=== PATIENT | female | born 1990 | race Two or more races ===

== ENCOUNTER 2020-09-09 20:14 | Emergency (ER) | payer OTHER, SELFPAY ==
[2020-09-09 20:24] VITALS: BP 111/71; PULSE 68; RESP 16; TEMP 36.9; O2SAT 99
--- NOTE | 2020-09-09 21:19 | PC.NURSE ---
PT RESTING IN STRETCHER AWAITING MD'S EVAL. PT IN NAD, RESPIRATION N/L. SKIN W/D.
--- NOTE | 2020-09-09 21:43 | ED.HA ---
HPI - Headache General Chief Complaint: Headache Stated Complaint: Migraine Time Seen by Provider: 09/09/20 21:40 History of Present Illness HPI Narrative: Patient is a 29-year-old female with a history of migraine headaches. Presented today with having headaches for better part of last week. Getting worse in the last day. Patient try Imitrex without any help. No fever no chills. No focal weakness. No change in vision. Patient from home. Headache is the same as previous is diffuse over the entire head. There was positive photophobia. Worse with loud noise. Patient from home. Positive nausea associated with this headache. Related Data Previous Rx's Medication Instructions Recorded ibuprofen 400 mg PO Q6H PRN #20 tab 09/09/20 ondansetron 4 mg PO TID PRN 5 Days #10 tab 09/09/20 Allergies Allergy/AdvReac Type Severity Reaction Status Date / Time metoclopramide [From REGLAN] Allergy Mild ANXIETY Unverified 07/20/20 16:20 Penicillins [PENICILLINS] Allergy Unknown RASH Unverified 07/20/20 16:20 Review of Systems Review of Systems: Constitutional: No Weight loss, No Fever, No Chills, No Night Sweats, No Fatigue, No Malaise ENT/Mouth: No Hearing loss, No Ear Pain, No Nasal Congestion, No Sinus Pain, No Hoarseness, No sore throat, No Rhinorrhea, No Swallowing Difficulty Eyes: No Eye Pain, No Swelling, No Redness, No Foreign Body, No Discharge, No Vision Changes Cardiovascular: No Chest Pain, No SOB, No Dyspnea on Exertion, No Orthopnea, No Edema, No Palpitations Respiratory: No Cough, No Sputum, No Wheezing, No Smoke Exposure, No Dyspnea Gastrointestinal: Positive Nausea, No Vomiting, No Diarrhea, No Constipation, No abdominal Pain, No Hematochezia, No Melena Genitourinary: no irregular bleeding, No Dysuria, No Urinary Frequency, No Hematuria, No Urinary Incontinence, No Urgency, No Flank Pain, No Urinary Flow Changes, No Hesitancy Musculoskeletal: No joint pain, No Myalgias, No Joint Swelling Skin: No Skin Lesions, No rash Neuro: No Weakness, No Numbness, No Paresthesias, No Loss of Consciousness, No Dizziness, positive Psych: No Anxiety/Panic, No Depression, No SI/HI/AH/VH, No Social Issues, Heme/Lymph: No Bruising, No Bleeding,No Lymphadenopathy Endocrine: No Polyuria, No Polydipsia, No Temperature Intolerance [facility] Past Medical History Attestation statement: The following information was validated with the patient. Social History Social History Advance Directives: No Advance Directives Information Provided: Yes Physical Exam Vital Signs: Vital Signs: Last Vital Signs Temp 98.7 F 09/09/20 21:59 Pulse 95 09/09/20 21:59 Resp 16 09/09/20 21:59 BP 124/78 09/09/20 21:59 Pulse Ox 99 09/09/20 21:59 Body Mass Index 0.1 Appearance: Alert. Oriented X3. No acute distress. Eyes: Pupils equal, round and reactive to light. ENT: Pharynx normal. Neck: Normal inspection. Neck supple. No lymph nodes noted. No crepitus CVS: Normal heart rate and rhythm. Pulses normal. Normal S1 and S2 Respiratory: No respiratory distress. Breath sounds normal. No Wheezing. No rales Abdomen: Soft and nontender. No rigidity. No distention. good BS x4 Skin: Skin warm and dry. Normal skin color. Normal skin turgor. Extremities: No lower extremity edema. Neurovascular intact to all extremities. No Lacerations. No Rash Neuro: Oriented X 3. No motor deficit. No sensory deficit. Moving all extermities. No slurred speech MDM - Headache MDM Narrative Medical decision making narrative: Well-appearing no acute distress. Patient symptom improved with cocktail. Wants to go home. Will discharge patient home. Neurologically intact. Headache similar to previous bouts of migraine. Consistent with diagnosis of migraine. Patient to be discharged. No fever no chills no evidence for meningitis. Differential Diagnosis Differential diagnosis: Likely migraine, tension headache, subarachnoid hemorrhage, headache, meningitis and sinusitis Discharge Plan Discharge Clinical Impression: Migraine Patient Disposition: Home, Self-Care Instructions: Migraine Headache (ED) Prescriptions: New ibuprofen 400 mg tablet 400 mg PO Q6H PRN (Reason: pain) Qty: 20 RF: 0 ondansetron 4 mg tablet,disintegrating 4 mg PO TID PRN (Reason: nausea and vomiting) 5 Days Qty: 10 RF: 0 Referrals: Ho Araya MD [Primary Care Provider] - 2 days
[2020-09-09] MEDS: Ketorolac Tromethamine 30 MG/ML VIAL IVPUSH (21:56)
[2020-09-09] MEDS: Prochlorperazine Edisylate 10 MG/2 ML VIAL IVPUSH (21:56)
[2020-09-09] MEDS: 0.9 % Sodium Chloride 1,000 ML 999 ML IVCONT (21:56)
[2020-09-09] MEDS: diphenhydrAMINE HCL 50 MG/ML VIAL 25 MG IVPUSH (21:56)
[2020-09-09 21:59] VITALS: BP 124/78; PULSE 95; RESP 16; TEMP 37.1; O2SAT 99
--- NOTE | 2020-09-09 22:29 | PC.NURSE ---
PT JOSI HOWELL, TOLD RN THAT MY RIDE IS HERE, I NEED TO LEAVE. MESSAGE RELAYED TO MD KAT.
== END 2020-09-09 22:48 | disposition home or self-care (01) ==
PROVIDERS: Emergency Provider Emergency Medicine Emergency Medical Services; PCP Internal Medicine
DX: G43.909 Migraine, unspecified, not intractable, without status migrainosus (principal); Z79.899 Other long term (current) drug therapy
CPT/HCPCS: 96361; 96374; 96375; 99284; J1200; J1885

== ENCOUNTER 2021-12-10 18:16 | Emergency (ER) | payer OTHER, SELFPAY ==
[2021-12-10 18:38] VITALS: BP 113/64; PULSE 88; RESP 18; TEMP 36.8; O2SAT 97; BMI 21.3
== END 2021-12-10 21:23 | disposition left against medical advice (07) ==
PROVIDERS: Emergency Provider Emergency Medicine
DX: R51.9 Headache, unspecified (principal)
CPT/HCPCS: 99281; 99282

== ENCOUNTER 2021-12-11 09:25 | Emergency (ER) | payer OTHER, SELFPAY ==
[2021-12-11 09:33] VITALS: BP 114/65; PULSE 90; RESP 16; TEMP 36.8; O2SAT 100; BMI 21.3
--- NOTE | 2021-12-11 09:53 | ED.HA ---
HPI - Headache General Chief Complaint: Headache Stated Complaint: Migraine Time Seen by Provider: 12/11/21 09:40 Source: patient Mode of arrival: ambulatory Limitations: no limitations History of Present Illness HPI Narrative: 31-year-old female with a history of migraines on Lamictal, Nurtec, gets Botox injections followed by neurologist in [place] here with reports of generalized headache with photophobia, phonophobia, nausea and vomiting. Patient tells me that this feels similar to her previous migraines. When this happened she typically comes to the emergency department and get IV medications which helps her headache. Related Data Previous Rx's Medication Instructions Recorded ibuprofen 400 mg tablet 400 mg PO Q6H PRN #20 tab 09/09/20 ondansetron 4 mg disintegrating 4 mg PO TID PRN 5 Days #10 tab 09/09/20 tablet Allergies Allergy/AdvReac Type Severity Reaction Status Date / Time metoclopramide [From REGLAN] Allergy Mild ANXIETY Verified 12/10/21 18:38 Penicillins [PENICILLINS] Allergy Unknown RASH Verified 12/10/21 18:38 Review of Systems Review of Systems: Yes all other systems are reviewed and are negative Constitutional: Constitutional: Reports no additional constitutional complaints, Denies body ache(s), Denies chills, Denies fever(s), Reports headache(s) and Denies weakness Eyes: Eyes: Reports no additional eye complaints, Denies change in vision and Reports photophobia ENT: Reports system reviewed and no additional complaints, except as documented, Denies dizziness, Reports headache(s), Denies nasal congestion, Denies nasal discharge and Denies neck pain Cardiovascular: Cardiovascular: Reports no additional cardiovascular complaints, Denies chest pain, Denies leg edema and Denies dyspnea Respiratory: Respiratory: Reports no additional respiratory complaints, Denies cough and Denies dyspnea Gastrointestinal: Gastrointestinal: Reports no additional gastrointestinal complaints, Denies abdominal pain, Denies diarrhea, Reports nausea and Reports vomiting Genitourinary: Genitourinary: Reports no additional female genitourinary complaints and Denies urinary incontinence Musculoskeletal: Musculoskeletal: Reports no additional musculoskeletal complaints, Denies back pain, Denies arthralgias, Denies joint swelling, Denies neck pain, Denies numbness and Denies tingling Integumentary/Breasts: Skin/Breast: Reports system reviewed and no additional complaints, except as docu and Denies rash Neurologic: Reports system reviewed and no additional complaints, except as documented, Denies Abnormal speech present, Denies dizziness, Reports headache(s), Denies numbness, Denies tingling and Denies weakness PMFSH Past Medical History Attestation statement: The following information was validated with the patient. Source: old records reviewed and nursing notes reviewed Social History Social History Alcohol intake: never Patient Tobacco Use Status: Never used Tobacco Use of substances other than those prescribed or required for medical reasons: No Advance Directives: No Advance Directives Information Provided: No Patient : No Physical Exam Vital Signs: Vital Signs: Last Vital Signs Temp 98.2 F 12/11/21 12:08 Pulse 87 12/11/21 12:08 Resp 16 12/11/21 12:08 BP 107/65 12/11/21 12:08 Pulse Ox 99 12/11/21 12:08 BMI result Body Mass Index 21.3 Const: General: cooperative, healthy appearing, comfortable and no acute distress Orientation/consciousness: patient oriented x3 Limitations: no limitations HENMT: Head: Yes normal to inspection Ears: hearing grossly normal bilaterally and TM's normal bilaterally General nose exam: Normal external nose present Face and sinus: Yes normal facial exam Mouth: Normal oral and palatal mucosa present Throat: Yes posterior oropharynx normal, Yes tonsils normal and Yes uvula midline Eyes: General: appearance normal, both eyes and all related structures Pupils: Equal, round and reactive pupils present Direct Ophthalmoscopy: photophobia Neck: Neck: Yes normal visual inspection, Yes full ROM, Yes no lymphadenopathy and Yes no meningeal signs Chest: Chest palpation & inspection: normal inspection of the chest Resp: Effort & Inspection: normal respiratory effort Auscultation: clear to auscultation bilaterally Cardio: Rate: regular rate Rhythm: regular rhythm Peripheral pulses: Peripheral pulses 2+ throughout GI: Inspection: Yes normal to inspection Palpation (GI): Soft to palpation and nontender Auscultation: normal bowel sounds Back/Spine/Pelvis: Thoracic/Lumbar Spine: thoracic and lumbar spine normal to inspection Skin: General skin exam: no rashes or lesions noted Neuro: General: patient oriented x3, no meningeal signs, no focal motor deficits and normal sensation to monofilament Cranial nerves: Yes CN's II-XII intact bilaterally, Yes Equal, round and reactive pupils present, Yes Bilaterally intact EOM present, Yes Normal facial strength present and Yes Midline tongue present Cognition (Neuro): normal cognition Speech: No Abnormal speech present Gait exam (Neuro): Normal gait present Motor exam (neuro): 5/5 motor strength present throughout Sensory Exam: Normal double simultaneous stimulation for sensation Extrem: General: Yes normal to inspection Course Course Course Narrative: 31-year-old female who history of chronic migraines here with reports of migraine for the last 1 week unresolved with home medications. Patient states this feels similar to her previous migraines. It is typical for her to have associated photophobia, phonophobia and nausea and vomiting. Normal neurological exam. Vitals are stable. Patient tells me she can have regular and due to feeling restless when she gets it. She tells me that she is able to tolerate Compazine but only if given IV push. will give IV fluids, Decadron, Toradol, Compazine with Benadryl. patient also complaining of feeling anxious supple give low-dose Ativan 1215- patient tells me her headache is resolved. Will have patient follow up with her outpatient providers. reviewed worrisome signs and symptoms of when to return to the emergency department. Comfortable discharge home. MDM - Headache MDM Narrative Medical decision making narrative: Less likely subarachnoid hemorrhage with gradual onset, improving pain, normal exam less likely meningitis, encephalitis with no fever, no nuchal rigidity, improving exam Medical Records Attestation: I reviewed the patient's medical records. Lab Data Attestation: I reviewed the patient's lab results. Discharge Plan Discharge Clinical Impression: Migraine Patient Disposition: Home, Self-Care Instructions: Migraine Headache (ED) Additional Instructions: follow-up with your outpatient providers Prescriptions: No Action ibuprofen 400 mg tablet 400 mg PO Q6H PRN (Reason: pain) Qty: 20 0RF ondansetron 4 mg tablet,disintegrating 4 mg PO TID PRN (Reason: nausea and vomiting) 5 Days Qty: 10 0RF Referrals: Ho Araya MD [Primary Care Provider] - 2 days
[2021-12-11 09:55] VITALS: BP 109/63; PULSE 85; RESP 18; O2SAT 100
--- NOTE | 2021-12-11 09:57 | PC.NURSE ---
C/o severe headaches, worse x few days. states she has constant headache 6/10 at baseline.
--- NOTE | 2021-12-11 10:12 | PC.NURSE ---
no neuro deficits. nausea but no vomitingv.
[2021-12-11] MEDS: LORazepam 2 MG/ML VIAL 0.5 MG IVPUSH (10:13)
[2021-12-11] MEDS: 0.9 % Sodium Chloride 1,000 ML 999 ML IV (10:13)
[2021-12-11] MEDS: Ketorolac Tromethamine 30 MG/ML VIAL IVPUSH (10:14)
[2021-12-11] MEDS: diphenhydrAMINE HCL 50 MG/ML VIAL 25 MG IVPUSH (10:15)
[2021-12-11] MEDS: dexAMETHasone sod phosphate 10 MG/ML VIAL IVPUSH (10:18)
[2021-12-11] MEDS: Prochlorperazine Edisylate 10 MG/2 ML VIAL 5 MG IVPUSH (10:18)
[2021-12-11 12:08] VITALS: BP 107/65; PULSE 87; RESP 16; TEMP 36.8; O2SAT 99
== END 2021-12-11 12:26 | disposition home or self-care (01) ==
PROVIDERS: Emergency Provider Emergency Medicine; PCP Internal Medicine
DX: G43.909 Migraine, unspecified, not intractable, without status migrainosus (principal); Z79.899 Other long term (current) drug therapy
CPT/HCPCS: 96361; 96374; 96375; 99284; J1100; J1200; J1885; J2060

== ENCOUNTER 2022-07-07 17:24 | Emergency (ER) | payer OTHER, SELFPAY ==
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
[2022-07-07 18:35] VITALS: BP 138/90; PULSE 86; RESP 14; TEMP 36.3; O2SAT 100; BMI 22.6
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
[2022-07-07] MEDS: Ketorolac Tromethamine 60 MG/2 ML VIAL IM (21:46)
[2022-07-07] MEDS: traMADoL HCL 50 MG TABLET PO (22:54)
[2022-07-07] MEDS: LORazepam 1 MG TABLET PO (22:54)
[2022-07-07 22:55] VITALS: BP 117/70; PULSE 76; RESP 18; O2SAT 100
== END 2022-07-07 23:02 | disposition home or self-care (01) ==
PROVIDERS: Emergency Provider Internal Medicine; PCP Internal Medicine
DX: S16.1XXA Strain of muscle, fascia and tendon at neck level, initial encounter (principal); M54.2 Cervicalgia; V43.52XA Car driver injured in collision with other type car in traffic accident, initial encounter; Y93.9 Activity, unspecified; Y92.410 Unspecified street and highway as the place of occurrence of the external cause; Y99.9 Unspecified external cause status; Z79.899 Other long term (current) drug therapy
CPT/HCPCS: 72040; 96372; 99284; J1885

== ENCOUNTER → 2022-08-06 10:15 | Outpatient (BNVA) | payer OTHER, SELFPAY | PROVIDERS: PCP Internal Medicine; Visit Provider Student in an Organized Health Care Education/Training Program | DX: M79.7 Fibromyalgia (principal); M62.838 Other muscle spasm | CPT/HCPCS: 20552; 99212 ==

== ENCOUNTER → 2022-11-08 12:08 | Outpatient (BNVA) | payer OTHER, SELFPAY | PROVIDERS: PCP Internal Medicine; Visit Provider Student in an Organized Health Care Education/Training Program | DX: M79.7 Fibromyalgia (principal); M62.838 Other muscle spasm; G43.909 Migraine, unspecified, not intractable, without status migrainosus; F41.8 Other specified anxiety disorders | CPT/HCPCS: 99212 ==

== ENCOUNTER 2023-06-13 16:06 | Outpatient (AMB) | payer OTHER, SELFPAY ==
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
[2023-06-13 16:14] VITALS: BP 110/62; PULSE 85; TEMP 37.1; O2SAT 99; BMI 21.4
== END 2023-06-13 16:38 | disposition home or self-care (01) ==
PROVIDERS: PCP Internal Medicine; Visit Provider Student in an Organized Health Care Education/Training Program
DX: M62.838 Other muscle spasm (principal); M75.02 Adhesive capsulitis of left shoulder
CPT/HCPCS: 99213

== ENCOUNTER → 2023-06-13 16:06 | Outpatient (BNVA) | payer OTHER, SELFPAY | PROVIDERS: PCP Internal Medicine; Visit Provider Student in an Organized Health Care Education/Training Program | DX: M75.02 Adhesive capsulitis of left shoulder (principal); M62.838 Other muscle spasm; M79.7 Fibromyalgia; G43.709 Chronic migraine without aura, not intractable, without status migrainosus | CPT/HCPCS: 99212 ==

== ENCOUNTER 2024-01-08 10:38 | Outpatient (AMB) | payer OTHER, SELFPAY ==
[2024-01-08 10:41] VITALS: BP 132/80; PULSE 117; O2SAT 100; BMI 21.1
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
== END 2024-01-08 11:13 | disposition home or self-care (01) ==
PROVIDERS: PCP Internal Medicine; Visit Provider Student in an Organized Health Care Education/Training Program
DX: R52 Pain, unspecified (principal)
CPT/HCPCS: 99214

== ENCOUNTER 2024-01-08 10:39 | Outpatient (REF) | payer OTHER, SELFPAY ==
--- NOTE | ~2024-01-08 | XR_ITS ---
EXAM: XR LEFT FOOT XR RIGHT FOOT XR LEFT HAND XR RIGHT HAND INDICATION: Complex regional pain syndrome. COMPARISON: None. TECHNIQUE: 3 views of each foot. 4 views of each hand. FINDINGS: RIGHT HAND: Bone mineralization is normal. Small spur along the radial aspect of the body of the scaphoid. Mild degenerative changes in the first carpometacarpal joint with joint space narrowing and hypertrophic change. LEFT HAND: Minimal spurring along the radial aspect of the body of the scaphoid. Mild degenerative changes in the first carpometacarpal joint with joint space narrowing and hypertrophic change. No acute displaced fracture. Bone mineralization is normal. RIGHT FOOT: Bone mineralization is normal. Joint spaces and alignment are preserved. No acute displaced fracture. No significant plantar calcaneal spur. LEFT FOOT: Bone mineralization is normal. Joint spaces and alignment are preserved. No acute displaced fracture. No significant plantar calcaneal spur. XR/XR hand wrist LT IMPRESSION: 1. Mild degenerative changes bilateral first carpometacarpal joints. 2. No acute displaced fracture of the bilateral hands and feet. 3. Recommend follow up imaging in 10-14 days if fracture is suspected.
--- NOTE | ~2024-01-08 | XR_ITS ---
EXAM: XR LEFT FOOT XR RIGHT FOOT XR LEFT HAND XR RIGHT HAND INDICATION: Complex regional pain syndrome. COMPARISON: None. TECHNIQUE: 3 views of each foot. 4 views of each hand. FINDINGS: RIGHT HAND: Bone mineralization is normal. Small spur along the radial aspect of the body of the scaphoid. Mild degenerative changes in the first carpometacarpal joint with joint space narrowing and hypertrophic change. LEFT HAND: Minimal spurring along the radial aspect of the body of the scaphoid. Mild degenerative changes in the first carpometacarpal joint with joint space narrowing and hypertrophic change. No acute displaced fracture. Bone mineralization is normal. RIGHT FOOT: Bone mineralization is normal. Joint spaces and alignment are preserved. No acute displaced fracture. No significant plantar calcaneal spur. LEFT FOOT: Bone mineralization is normal. Joint spaces and alignment are preserved. No acute displaced fracture. No significant plantar calcaneal spur. XR/XR foot LT min 3V IMPRESSION: 1. Mild degenerative changes bilateral first carpometacarpal joints. 2. No acute displaced fracture of the bilateral hands and feet. 3. Recommend follow up imaging in 10-14 days if fracture is suspected.
--- NOTE | ~2024-01-08 | XR_ITS ---
EXAM: XR LEFT FOOT XR RIGHT FOOT XR LEFT HAND XR RIGHT HAND INDICATION: Complex regional pain syndrome. COMPARISON: None. TECHNIQUE: 3 views of each foot. 4 views of each hand. FINDINGS: RIGHT HAND: Bone mineralization is normal. Small spur along the radial aspect of the body of the scaphoid. Mild degenerative changes in the first carpometacarpal joint with joint space narrowing and hypertrophic change. LEFT HAND: Minimal spurring along the radial aspect of the body of the scaphoid. Mild degenerative changes in the first carpometacarpal joint with joint space narrowing and hypertrophic change. No acute displaced fracture. Bone mineralization is normal. RIGHT FOOT: Bone mineralization is normal. Joint spaces and alignment are preserved. No acute displaced fracture. No significant plantar calcaneal spur. LEFT FOOT: Bone mineralization is normal. Joint spaces and alignment are preserved. No acute displaced fracture. No significant plantar calcaneal spur. XR/XR foot RT min 3V IMPRESSION: 1. Mild degenerative changes bilateral first carpometacarpal joints. 2. No acute displaced fracture of the bilateral hands and feet. 3. Recommend follow up imaging in 10-14 days if fracture is suspected.
--- NOTE | ~2024-01-08 | XR_ITS ---
EXAM: XR LEFT FOOT XR RIGHT FOOT XR LEFT HAND XR RIGHT HAND INDICATION: Complex regional pain syndrome. COMPARISON: None. TECHNIQUE: 3 views of each foot. 4 views of each hand. FINDINGS: RIGHT HAND: Bone mineralization is normal. Small spur along the radial aspect of the body of the scaphoid. Mild degenerative changes in the first carpometacarpal joint with joint space narrowing and hypertrophic change. LEFT HAND: Minimal spurring along the radial aspect of the body of the scaphoid. Mild degenerative changes in the first carpometacarpal joint with joint space narrowing and hypertrophic change. No acute displaced fracture. Bone mineralization is normal. RIGHT FOOT: Bone mineralization is normal. Joint spaces and alignment are preserved. No acute displaced fracture. No significant plantar calcaneal spur. LEFT FOOT: Bone mineralization is normal. Joint spaces and alignment are preserved. No acute displaced fracture. No significant plantar calcaneal spur. XR/XR hand wrist RT IMPRESSION: 1. Mild degenerative changes bilateral first carpometacarpal joints. 2. No acute displaced fracture of the bilateral hands and feet. 3. Recommend follow up imaging in 10-14 days if fracture is suspected.
== END 2024-01-08 10:40 | disposition home or self-care (01) ==
LOC: HO.XRAY 10:39
PROVIDERS: PCP Internal Medicine; Visit Provider Student in an Organized Health Care Education/Training Program
DX: G90.59 Complex regional pain syndrome I of other specified site (principal); R52 Pain, unspecified
CPT/HCPCS: 73110; 73130; 73630; 99212

== ENCOUNTER → 2024-02-09 10:05 | Outpatient (REF) | payer OTHER, SELFPAY ==
--- NOTE | ~2024-02-09 | NM_ITS ---
EXAMINATION: THREE PHASE BONE SCAN CLINICAL INFORMATION: Complex regional pain syndrome I of unspecified upper limb Additional Notes/Special Instructions Any signs of CRPS Left upper and left lower extremity are particularly symptomatic . COMPARISON: No previous bone scan is available for comparison. Radiographs of the bilateral hands and feet dated 01/08/2024 and the cervical spine dated 07/07/2022 are available for comparison.. TECHNIQUE: Initial rapid sequence images were obtained over the chest including both shoulders and upper extremities in the anterior and posterior projections during the bolus injection of 25 mCi Tc-99m MDP. Static images of the whole body with multiple spot views of the lumbosacral spine and pelvis, chest and distal extremities were then obtained 2.5 hours post injection. FINDINGS: Initial rapid sequence images show bilaterally symmetrical flow to the proximal upper extremities and bilateral shoulders. Normal vascular flow through the chest is also noted. The flow to the visualized kidneys, including approximately the superior two thirds bilaterally appears normal and bilaterally symmetrical. Blood pool images of the chest and the upper and lower extremities are bilaterally symmetrical with no significant foci of increased blood pool activity present at any site except for minimally asymmetrical blood pool activity in the mid feet bilaterally, more prominent on the right. Delayed static images of the whole body show: In the head, no significant abnormalities are present. In the thoracic cage and upper extremities, no significant abnormalities are present. In the spine, no significant abnormalities are present. In the pelvis, no significant abnormalities are present. In the lower extremities, no significant abnormalities are present. No other definite bony abnormalities are noted. The urinary bladder and faint visualization of both kidneys are noted. NM/NM bone 3 phase IMPRESSION: No significant abnormalities are present at any site on the flow, blood pool, or delayed static images.
== END ==
LOC: HO.NUCMED 10:05
PROVIDERS: PCP Internal Medicine; Visit Provider Student in an Organized Health Care Education/Training Program
DX: G90.519 Complex regional pain syndrome I of unspecified upper limb (principal)
CPT/HCPCS: 78315; A9503

== ENCOUNTER 2024-03-16 14:00 | Outpatient (AMB) | payer OTHER, SELFPAY ==
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
[2024-03-16 14:08] VITALS: BP 122/74; PULSE 110; O2SAT 99; BMI 21.0
== END 2024-03-16 14:33 | disposition home or self-care (01) ==
PROVIDERS: PCP Internal Medicine; Visit Provider Student in an Organized Health Care Education/Training Program
DX: R52 Pain, unspecified (principal); G90.512 Complex regional pain syndrome I of left upper limb; M79.7 Fibromyalgia
CPT/HCPCS: 99213

== ENCOUNTER → 2024-03-16 14:00 | Outpatient (BNVA) | payer OTHER, SELFPAY | PROVIDERS: PCP Internal Medicine; Visit Provider Student in an Organized Health Care Education/Training Program | DX: G90.512 Complex regional pain syndrome I of left upper limb (principal); M79.7 Fibromyalgia; Z79.899 Other long term (current) drug therapy | CPT/HCPCS: 99212 ==

== ENCOUNTER 2024-09-14 11:44 | Outpatient (AMB) | payer OTHER, SELFPAY ==
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
[2024-09-14 11:54] VITALS: BP 90/60; PULSE 98; O2SAT 99; BMI 18.9
== END 2024-09-14 12:36 | disposition home or self-care (01) ==
PROVIDERS: PCP Internal Medicine; Visit Provider Student in an Organized Health Care Education/Training Program
DX: R52 Pain, unspecified (principal); G90.512 Complex regional pain syndrome I of left upper limb; M79.7 Fibromyalgia
CPT/HCPCS: 99214

== ENCOUNTER → 2024-09-14 11:44 | Outpatient (BNVA) | payer OTHER, SELFPAY | PROVIDERS: PCP Internal Medicine; Visit Provider Student in an Organized Health Care Education/Training Program | DX: M79.7 Fibromyalgia (principal); G90.512 Complex regional pain syndrome I of left upper limb; M54.50 Low back pain, unspecified; R20.0 Anesthesia of skin | CPT/HCPCS: 99212 ==

== ENCOUNTER 2024-11-30 08:03 | Outpatient (AMB) | payer OTHER, SELFPAY ==
[2024-11-30 08:10] VITALS: BP 112/60; PULSE 102; O2SAT 95; BMI 20.3
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
--- OUTSIDE RECORDS SUMMARY | 2024-11-30 08:10 | XMS_ITS | Encounter Summary ---
Author Organization [facility] Address [address] [place] [address] Care Team Providers Care Battery Assembler Plastic Name Role Phone Ho Araya MD Primary Care Provider [phone] Reason for Referral * Imaging (Routine) - Authorized Specialty Diagnoses / Procedures Referred By Contac t Referred To Contact Radiology Diagnoses Cervicalgia Procedures US Head Neck Soft Tissue Piero Encarnacion PA [address] [place] [id number] [address] Referral ID Status Reason Start Date Expiration Date V isits Requested Visits Authorized [id number] Authorized 11/10/2024 11/10/2025 1 1 Reason for Visit * Imaging (Routine) - Authorized Specialty Diagnoses / Procedures Referred By Contac t Referred To Contact Radiology Diagnoses Cervicalgia Procedures US Head Neck Soft Tissue Piero Encarnacion PA [address] [place] [id number] [address] Referral ID Status Reason Start Date Expiration Date V isits Requested Visits Authorized [id number] Authorized 11/10/2024 11/10/2025 1 1 Encounter Details Date Type Department Care Team (Latest Contact Info) Description 11/15/2024 12:57 PM EST - 11/15/2024 11:59 PM EST Hospital Encounter [address] [address] Cervicalgia Discharge Disposition: Home or Self Care Social History Tobacco Use Types Packs/Day Years Used Date Smoking Tobacco: Never Smokeless Tobacco: Never Alcohol Use Standard Drinks/Week Comments No 0 (1 standard drink = 0.6 oz pur e alcohol) Sex and Gender Information Value Date Recorded Sex Assigned at Not on file Gender Identity Not on file Sexual Orientation Not on file Job Start Date Occupation Industry Not on file Not on file Not on file documented as of this encounter Medications at Time of Discharge Medication Sig Dispensed Refills Start Date End Date acetaminophen (TYLENOL) 325 mg tablet TAKE 2 TABLETS BY MOUTH EVERY 6 HOURS NEEDED FOR FEVER/MILD PAIN SCALE 1 3 07/20/2020 albuterol HFA (PROVENTIL HFA;VENTOLIN HFA) 108 (90 Base) MCG/ACT inhaler Sig - Route: Take 2 Puffs by mouth every 4 hours as needed for Cough or Wheezing. - Oral Sent to pharmacy as: Albuterol Sulfate HFA 108 (90 Base) MCG/ACT Inhalation Aerosol Solution (Ventolin HFA) ascorbic acid (VITAMIN C) 500 mg tablet Take 1 tablet (500 mg total) by mouth 2 (two) times a day. 60 each 2 09/22/2024 12/21/2024 baclofen (LIORESAL) 10 mg tablet Take 1 Tablet by mouth 2 times daily as needed for Other (muscle spasm, may cause sedation). 05/30/2022 BACLOFEN ORAL Take 1 tablet (10 mg total) by mouth 3 (three) times a day. - Oral cetirizine (ZyrTEC) 10 mg tablet Take 1 tablet (10 mg total) by mouth 1 (one) time each day. 01/13/2024 diclofenac (VOLTAREN) 1 % topical gel Apply 4 g topically 2 times daily as needed (Thigh pain). 05/12/2024 dicyclomine (BENTYL) 10 mg capsule 03/09/2024 docusate sodium (COLACE) 100 mg capsule Take 1 capsule (100 mg total) by mouth 2 (two) times a day. 08/26/2023 fluticasone propionate (FLONASE) 50 mcg/actuation nasal spray SPRAY 2 SPRAYS INTO EACH NOSTRL ONCE DAILY 10/28/2023 lidocaine (XYLOCAINE) 5 % ointment Apply topically 2 (two) times a day. 35.44 g 11/09/2024 linaclotide (LINZESS ORAL) Take 1 capsule (145 mcg total) by mouth every morning before breakfast. - Oral linaCLOtide (Linzess) 145 mcg capsule Take 1 tablet by mouth 1 (one) time each day. 01/24/2024 LORazepam (ATIVAN) 1 mg tablet Take 1 tablet (1 mg total) by mouth every 6 (six) hours as needed. - Oral methylPREDNISolone (MEDROL) 4 mg tablet Sig - Route: Take 1 Package by mouth See Admin Instructions. Dispense 1 packet ; see instructions on packet - Oral Sent to pharmacy as: methylPREDNISolone 4 MG Oral Tablet Therapy Pack naratriptan (AMERGE) 2.5 mg tablet Take 2.5 mg by mouth as needed. 2.5 mg at onset of headache, may repeat in 4 hours if needed naratriptan HCl (NARATRIPTAN ORAL) Take by mouth. - Oral nutritional drink (Ensure) liquidIndications: Complex regional pain syndrome type 1, affecting unspecified site,Weight loss,BMI less than 19,adult 1 bottle twice daily for weight loss / [place] Flavored 60 each 09/29/2024 NUTRITIONAL SUPPLEMENTS ORAL Sig - Route: Take 1 Can by mouth daily. - Oral Sent to pharmacy as: Ensure Active Oral Liquid ondansetron (ZOFRAN) 4 mg tablet Take by mouth daily as needed for nausea. - Oral ondansetron (ZOFRAN) 8 mg tablet Take 1 tablet (8 mg total) by mouth 3 (three) times a day. 60 tablet 6 09/27/2024 pantoprazole (PROTONIX) 40 mg EC tablet Take 1 Tablet by mouth daily. Take in am on empty stomach, wait 30 mins and then eat to activate the medication 09/24/2022 pantoprazole (PROTONIX) 40 mg EC tablet Take 1 tablet (40 mg total) by mouth 2 (two) times a day. Take on empty stomach, wait 30 mins and then eat to activate the medication- before breakfast and supper 60 each 09/27/2024 09/27/2025 polyethylene glycol (PEG) 17 gram/dose oral powder Sig: DISSOLVE 17 GRAMS INTO WATER AND DRINK BY MOUTH EVERY DAY Sent to pharmacy as: Polyethylene Glycol 3350 17 GM/SCOOP Oral Powder (GLYCOLAX) pregabalin (LYRICA ORAL) Take 1 capsule (225 mg total) by mouth 2 (two) times a day. - Oral pregabalin (LYRICA) 225 mg capsule Take 1 capsule (225 mg total) by mouth 2 (two) times a day. 05/30/2022 promethazine (PHENERGAN) 12.5 mg tablet Take 1 tablet (12.5 mg total) by mouth every 6 (six) hours if needed. 12/03/2023 QUEtiapine (SEROquel) 25 mg tablet Take 1 tablet (25 mg total) by mouth 4 (four) times a day. - Oral rimegepant (NURTEC) 75 mg dispersible tablet Take 1 tablet (75 mg total) by mouth. - Oral senna (SENOKOT) 8.6 mg tablet Take 1 tablet (8.6 mg total) by mouth 1 (one) time each day. 02/07/2023 sucralfate (CARAFATE) 100 mg/mL suspension Take 10 mL (1 g total) by mouth 4 (four) times a day (with meals and nightly). Take 1 hour before meals and at bedtime 1200 mL 11 09/27/2024 zolpidem tartrate (AMBIEN ORAL) Take 1 tablet (5 mg total) by mouth every night at bedtime as needed for sleep. - Oral documented as of this encounter Discharge Disposition Disposition Code Departure Means Destination Home or Self Care documented in this encounter Plan of Treatment Upcoming Encounters Date Type Department Care Team (Late st Contact Info) Description 12/01/2024 3:30 PM EST Office Visit Orthopedic Surgery [facility] [address] [phone] Diaz Galeana DPJanet [address] [address] 05/02/2025 10:30 AM EDT Office Visit [facility] Hematology Oncology [address] [place] [id number] Clotilde Lux DO [address] [place] [address] documented as of this encounter Procedures Procedure Name Priority Date/Time Associated Diagnosis Comments US HEAD NECK SOFT TISSUE Routine 11/15/2024 1:19 PM EST Cervicalgia documented in this encounter Results * US Head Neck Soft Tissue (11/15/2024 1:19 PM EST) Anatomical Region Laterality Modality Head and Neck Ultrasound 11/23/2024 8:27 AM EST Impressions 11/23/2024 8:29 AM EST No suspicious abnormality of the thyroid. The patient should be managed on the basis of the physical exam and history TI-RADS Assessment (updated February 2017) Composition: ??cystic or spongiform: 0 pt ??mixed cystic and solid: 1 pt ??solid or almost completely solid: 2 pts Echogenicity: ?? anechoic: 0 pt ?? hyperechoic or isoechoic: 1 pt ?? hypoechoic: 2 pts ?? very hypoechoic: 3 pt Shape: ?? wider than tall: 0 pt ?? taller than wide: 3 pts Margin: ?? smooth: 0 pt ?? ill-defined: 0 pt ?? lobulated/irregular: 2 pts ?? extra-thyroidal extension: 3 pts Echogenic foci ?? none or large comet tail artifact: 0 pt ?? macro-calcification: 1 pt ?? peripheral/rim ca++: 2 pts ?? punctate echogenic foci: 3 pts TR1: ??0 pts; benign; no follow-up TR2: 2 pts; not suspicious; no FNA TR3: 3 pts; mildly suspicious; < or = 1.5 cm f/u; > or = 2.5 cm FNA TR4: 4-6 pts; moderately suspicious; < or = 1.0 cm follow-up; 1.5 cm FNA TR5: 7 or > pts; highly suspicious; .5-.9 cm f/u; 1.0 cm or > FNA -------- FINAL REPORT -------- Dictated By: Steven Otero Dictated Date: 11/23/2024 08:27 ET Assigned Physician: Steven Otero Reviewed and Electronically Signed By: Steven Otero Signed Date: 11/23/2024 08:29 ET Workstation ID: [id number] Transcribed By: Self Edit Transcribed Date: 11/23/2024 08:27 ET Narrative 11/23/2024 8:29 AM EST HISTORY: Left neck pain. Swelling. Family history of thyroid cancer TECHNIQUE: Grayscale assessment of the thyroid was performed with a high frequency linear transducer. COMPARISON: ??None FINDINGS: The right lobe of the thyroid measures: 4.4 x 1.0 x 1.4 cm Previous measurement: No previous available Right lobe contour: The right lobe contour is smooth. Right lobe echogenicity: Homogeneous Right lobe vascularity: Normal The left lobe of the thyroid measures: 4.1 x 1.1 x 1.6 cm Previous measurement: No previous available Left lobe contour: The left lobe contour is smooth. Left lobe echogenicity: Homogeneous Left lobe vascularity: Normal Isthmus measures (AP): 0.2 cm Previous measurement: No previous available Isthmus contour: The isthmic contour is smooth. Isthmus echogenicity: Homogeneous Isthmus vascularity: Normal Masses: No suspicious masses OTHER: Extrathyroidal extension: ??None Regional lymph nodes: ??No enlarged lymph nodes demonstrated The area of left neck swelling was examined. No suspicious mass. No suspicious area of altered echotexture. No enlarged lymph nodes demonstrated Procedure Note Steven Otero MD - 11/23/2024 HISTORY: Left neck pain. Swelling. Family history of thyroid cancer TECHNIQUE: Grayscale assessment of the thyroid was performed with a highfrequency linear transducer. COMPARISON: None FINDINGS: The right lobe of the thyroid measures: 4.4 x 1.0 x 1.4 cm Previous measurement: No previous available Right lobe contour: The right lobe contour is smooth. Right lobe echogenicity: Homogeneous Right lobe vascularity: Normal The left lobe of the thyroid measures: 4.1 x 1.1 x 1.6 cm Previous measurement: No previous available Left lobe contour: The left lobe contour is smooth. Left lobe echogenicity: Homogeneous Left lobe vascularity: Normal Isthmus measures (AP): 0.2 cm Previous measurement: No previous available Isthmus contour: The isthmic contour is smooth. Isthmus echogenicity: Homogeneous Isthmus vascularity: Normal Masses: No suspicious masses OTHER: Extrathyroidal extension: None Regional lymph nodes: No enlarged lymph nodes demonstrated The area of left neck swelling was examined. No suspicious mass. Nosuspicious area of altered echotexture. No enlarged lymph nodesdemonstrated IMPRESSION: No suspicious abnormality of the thyroid. The patient should be managed on the basis of the physical exam andhistory TI-RADS Assessment (updated February 2017) Composition: cystic or spongiform: 0 pt mixed cystic and solid: 1 pt solid or almost completely solid: 2 pts Echogenicity: anechoic: 0 pt hyperechoic or isoechoic: 1 pt hypoechoic: 2 pts very hypoechoic: 3 pt Shape: wider than tall: 0 pt taller than wide: 3 pts Margin: smooth: 0 pt ill-defined: 0 pt lobulated/irregular: 2 pts extra-thyroidal extension: 3 pts Echogenic foci none or large comet tail artifact: 0 pt macro-calcification: 1 pt peripheral/rim ca++: 2 pts punctate echogenic foci: 3 pts TR1: 0 pts; benign; no follow-up TR2: 2 pts; not suspicious; no FNA TR3: 3 pts; mildly suspicious; < or = 1.5 cm f/u; > or = 2.5 cm FNA TR4: 4-6 pts; moderately suspicious; < or = 1.0 cm follow-up; 1.5 cm FNA TR5: 7 or > pts; highly suspicious; .5-.9 cm f/u; 1.0 cm or > FNA -------- FINAL REPORT -------- Dictated By: Steven Otero Dictated Date: 11/23/2024 08:27 ET Assigned Physician: Steven Otero Reviewed and Electronically Signed By: Steven Otero Signed Date: 11/23/2024 08:29 ET Workstation ID: [id number] Transcribed By: Self Edit Transcribed Date: 11/23/2024 08:27 ET Piero SHIRLEY IMG US PROCEDURES documented in this encounter Visit Diagnoses Diagnosis Cervicalgia documented in this encounter Care Teams Battery Assembler Plastic Relationship Specialty Start Date End Date Ho Araya MD [address] [place] [id number] PCP - General Internal Medicine 07/25/15 documented as of this encounter
--- OUTSIDE RECORDS SUMMARY | 2024-11-30 08:10 | XMS_ITS | Clinical Summary ---
Author Organization [facility] Address [address] [place] [address] Care Team Providers Care Transfer Professor Name Role Phone Ho Araya MD Primary Care Provider [phone] Allergies Active Allergy Reactions Criticality Noted Date Comments Penicillins 06/16/2024 Metoclopramide 06/16/2024 Medications Medication Sig Dispensed Refills Start Date End Date Status pregabalin (Lyrica) 225 MG capsule Take 1 capsule (225 mg total) by mouth 2 (two) times a day. 0 Active baclofen (LIORESAL) 10 MG tablet Take 1 tablet (10 mg total) by mouth 3 (three) times a day. 0 Active LORazepam (ATIVAN) 1 MG tablet Take 1 tablet (1 mg total) by mouth every 6 (six) hours as needed. 0 Active rimegepant (NURTEC ODT) 75 MG TBDP ODT Take 1 tablet (75 mg total) by mouth. 0 Active linaclotide (Linzess) 145 MCG CAPS Take 1 capsule (145 mcg total) by mouth every morning before breakfast. 0 Active NARATRIPTAN HCL PO Take by mouth. 0 Ac tive zolpidem (AMBIEN) 5 MG tablet Take 1 tablet (5 mg total) by mouth every night at bedtime as needed for sleep. 0 Active QUEtiapine (SEROquel) 25 MG tablet Take 1 tablet (25 mg total) by mouth 4 (four) times a day. 0 Active ondansetron (ZOFRAN) 4 MG tablet Take by mouth daily as needed for nausea. 0 Active Active Problems No known active problems Family History Medical History Relation Name Comments Pancreatic cancer Maternal Uncle Leukemia Paternal Aunt Relation Name Status Comments Maternal Uncle Paternal Aunt Social History Tobacco Use Types Packs/Day Years Used Date Smoking Tobacco: Never Smokeless Tobacco: Never Tobacco Cessation:Counseling Given: Not Answered Alcohol Use Standard Drinks/Week Comments Not Currently 0 (1 standard drink = 0.6 oz pur e alcohol) Sex and Gender Information Value Date Recorded Sex Assigned at Not on file Gender Identity Not on file Sexual Orientation Not on file Job Start Date Occupation Industry Not on file Not on file Not on file Last Filed Vital Signs Vital Sign Reading Time Taken Comments Blood Pressure 123/79 07/13/2024 11:07 AM EDT Pulse 91 07/13/2024 11:07 AM EDT Temperature 37.2 ??C (99 ??F) 07/13/2024 11:07 AM EDT Respiratory Rate - - Oxygen Saturation 100% 07/13/2024 11:07 AM EDT Inhaled Oxygen Concentration - - Weight 56.2 kg (124 lb) 07/13/2024 11:07 AM EDT Height 168.9 cm (5' 6.5 ) 07/13/2024 11:07 AM ED T Body Mass Index 19.71 07/13/2024 11:07 AM EDT Plan of Treatment Health Maintenance Due Date Last Done Comments Hepatitis B Vaccines (1 of 3 - 3-dose series) 1992 Hepatitis C Screening 1992 COVID-19 Vaccine (#1) 03/28/1993 DTap / Tdap / Td (2 - Tdap) 03/24/2004 03/23/2004 Depression Screening 2004 Preventative Health Evaluation 2010 Cervical Cancer Screening (Pap Smear) 2013 Influenza Vaccine (#1) 2024 , 08/28/2020, 08/02/2019, Additional history exists Pneumococcal Vaccine Aged Out No long er eligible based on patient's age to complete this topic RSV Ped < 20 months Aged Out No longe r eligible based on patient's age to complete this topic Care Teams Transfer Professor Relationship Specialty Start Date End Date Ho Araya MD PCP - General Internal Medicine 05/19/24
--- OUTSIDE RECORDS SUMMARY | 2024-11-30 08:10 | XMS_ITS | Data Portability ---
Author Organization [facility], [address] Address [address] [place] [address] Assessment No assessment recorded. Plan of Treatment Reminders Order Date Submit Date Provider Last Modified By Organization Details Last Modified Time Details Appointments None recorded. Lab rapid strep group A, throat 2022 023 [email or web address] 5 [address], [address] [place], [address], 3 13:02:13 streptococc us group A, culture, throat 2022 023 [email or web address] [facility] ([facility], [address] [place] [address], [place], [address], 3 13:11:10 Referral None recorded. Procedures None recorded. Surgeries None recorded. Imaging None recorded. Medication Orders Polytrim 10,000 unit-1 mg/mL eye drops 2022 023 [facility]armacy #1130, [phone] [place], [address], 3 10:38:33 Ciprodex 0.3 %-0.1 % ear drops,suspe nsion 2023 024 [facility]/Pharmacy #1138, [phone] [place], [address], 4 08:57:12 Zithromax Z-Kory 250 mg tablet 2023 024 [facility]armacy #1130, [phone] [place], [address], 09:49:54 prednisone 20 mg tablet 2023 024 [facility] [phone] [place], [address], 09:11:00 cefdinir 300 mg capsule 2023 024 [facility] [phone] [place], [address], 09:10:58 Patient TargetsNo targets recorded. Patient Instructions Encounter Date Encounter Id Patient Instructions Last Modified By Organization Details Last Modified Time 12/31/2022 [id number] pinkeye: care instructions [email or web address] Not available 12/31/2022 13:04:53 sore throat: car e instructions [email or web address] Not available 12/31/2022 13:02:13 Use the eye drop s as prescribed. Throw out any eye make-up you have been using. See printed instructions. Gargle with warm, salty water several times daily. Over the counter tylenol or ibuprofen may be taken per package instructions for pain or fever. You will be contacted when your throat culture report returns. Follow-up with your doctor if no improvement in a few days. Seek Emergency Medical evaluation for any worsening symptoms. [email or web address] Not available 12/31/2022 13:07:42 01/07/2023 [id number] sore throat: car e instructions Not available 01/07/2023 11:57:17 04/18/2024 [id number] Your ear does no t currently look infected with a middle or external ear infection . we are hoping the pain is residual from the previous infection but you do not seem to need more drops at this time nor any oral antibiotics for a middle ear infection. please continue to monitor your symptoms and treat your pain with OTC meds as needed. Follow up with your PCP as needed and be sure to keep your upcoming ENT appointment. Ricky luck Not available 04/18/2024 09:22:15 06/19/2024 [id number] middle ear fluid : care instructions [email or web address] Not available 06/19/2024 09:10:56 Reason for Referral None Reported. Results Created Date Observation Date Name Description Value Unit Range Abnormal Flag Note LastModifiedBy Organization Detail LastModifiedTime 12/31/1901/02/2023 BETA STREP GP A CULTU RE beta strep gp A culture COMMEN T abnormal Beta- hemol ytic colon ies, not group A Strep tococ cus isola lowell. Refer ence Range : Negat philly Penic illin and ampic illin are drugs of choic e for treat ment of beta- hemol ytic strep tococ ezekiel infec tions . Susce ptibi lity testi ng of penic illin s and other beta- lacta m agent s appro raul by the FDA for treat ment of beta- hemol ytic strep tococ ezekiel infec tions need not be perfo rmed routi kervin becau se nonsu scept ible isola john are extre eladio rare in any beta- hemol ytic strep tococ cus and have not been repor lowell for Strep tococ cus pyoge feliciano (grou p A). (CLSI ) Not Available [facility] ([facility]) [address], [place], [address], 01/02/2023 12:06:18 12/31/19 23 12/31/2022 rapid strep group A, throa t Unknown Analyte Normal = Negati ve Not Available [address] [place], [address], 12/31/2022 11:53:41 12/31/19 23 12/31/2022 rapid strep group A, throa t Unknown Analyte negati ve Not Available [address] [place], [address], 12/31/2022 11:53:41 Result Notes None recorded. Problems Name Problem SNOMED Code Status Onset Date Resolution Date Notes Provider Name and Address Organization Details Recorded Time Otitis externa of left ear 5842356126237 109 Active 2023 Deacon Evans, DO [address] , [place], [address], [place] - [facility] 4 09:49:06 Acute left otitis media 445006935 Active 2023 Deacon Evans, DO [address] , [place], [address], [place] - [facility] 4 11:56:45 Acute serous otitis media of bilateral ears 8892675270097 107 Active 2023 Boyd Dodge, [employer]IAN [address] , [place], [address], [place] - [facility] 4 09:08:47 Bilateral earache 043797002 Active 2023 Boyd Dodge, [employer] M[employer] TECHNICIAN [address] , [place], [address], [place] - [facility] 4 09:09:15 Fibromyalgi a 678584159 Active 2022 TONYA DESMITH null, PA - [facility] 3 11:56:52 Migraine 03692680 Active 2022 TONYA DESMITH null, PA - [facility] 3 11:56:56 Problem Notes None recorded. Procedures Surgical History Date Name Laterality Status Provider Name and Address Organization Details Recorded Time Removal of ovarian cyst(s) completed TONYA DESMITH PA - [facility] 12/31/2022 11:57:36 Breast augmentation w/implt completed TONYA DESMITH PA - [facility] 12/31/2022 11:57:41 Imaging Results None recorded. Procedure Notes None recorded. Medical Equipment None Reported. Allergies Allergen ID Allergen Name Allergen Category Reaction Reaction Severity Criticality Documentation Date Start Date Code Code System Note Provider Name and Address Organization Details Recorded Time [id number] Product containin g penicilli n and antibioti c (product) medicatio n rash Not available Not available 12/31/2022 02224 05 SNOMED TONYA DESMITH null, PA - [facility] 3 11:54:53 754251 Reglan medicatio n itching Not available Not available 12/31/2022 9230 RxNorm [facility] Burns - [facility] 3 11:55:04 Medications Name Sig Start Date Stop Date Status Note LastModified by Organization Details LastModified Time quetiapine 25 mg tablet TAKE 1 TABLET BY MOUTH THREE TIMES A DAY NEEDED active Not Available Not Available No t Available cyclobenzap rine 10 mg tablet TAKE 1 TABLET BY MOUTH THREE TIMES A DAY 04/03 completed Not Available Not Available Not Available buspirone 5 mg tablet TAKE 1 TABLET BY MOUTH TWICE A DAY active Not Available Not Available No t Available betamethaso ne valerate 0.1 % topical ointment APPLY SPARINGLY TO NIPPLE THREE TIMES DAILY 01/07 completed Not Available Not Available Not Available neomycin-po lymyxin-hyd rocort 3.5 mg/mL-10,00 0 unit/mL-1 % ear solution TAKE 2 DROPS INTO THE AFFECTED EAR 3 TIMES PER DAY FOR 10 DAYS 04/03 completed Not Available Not Available Not Available venlafaxine ER 37.5 mg capsule,ext ended release 24 hr TAKE 1 CAPSULE BY MOUTH EVERY DAY 04/03 completed Not Available Not Available Not Available prednisone 10 mg tablet TAKE 3 TABLETS BY MOUTH DAILY X 3 DAYS, 2 TABLETS DAILY X 3 DAYS, THEN 1 TABLET DAILY X 3 DAYS 04/03 completed Not Available Not Available Not Available clindamycin HCl 300 mg capsule TAKE 1 CAPSULE BY MOUTH THREE TIMES A DAY FOR 10 DAYS 04/03 completed Not Available Not Available Not Available albuterol sulfate 2.5 mg/3 mL (0.083 %) solution for nebulizatio n TAKE 1 VIAL BY NEBULIZAT ION EVERY 4 HOURS NEEDED FOR WHEEZING FOR UP TO 180 DAYS. active Not Available Not Available No t Available cetirizine 10 mg tablet TAKE 1 TABLET BY MOUTH EVERY DAY active Not Available Not Available No t Available azithromyci n 250 mg tablet TAKE 2 TABLETS BY MOUTH TODAY, THEN TAKE 1 TABLET DAILY FOR 4 DAYS DIRECTED active Not Available Not Available No t Available fluconazole 150 mg tablet active Not Available Not Available Not Available senna 8.6 mg tablet TAKE 1 TABLET BY MOUTH EVERY DAY 04/03 completed Not Available Not Available Not Available ondansetron HCl 8 mg tablet TAKE 1 TABLET BY MOUTH EVERY DAY NEEDED X 30 DAYS active Not Available Not Available No t Available meloxicam 15 mg tablet TAKE 1 TABLET BY MOUTH EVERY DAY 04/03 completed Not Available Not Available Not Available promethazin e 12.5 mg tablet TAKE 1 TABLET BY MOUTH EVERY 6 HOURS NEEDED FOR NAUSEA 04/03 completed Not Available Not Available Not Available phenazopyri dine 200 mg tablet TAKE 1 TABLET BY MOUTH TWICE A DAY FOR 2 DAYS 12/31 completed Not Available Not Available Not Available prednisone 20 mg tablet Take 2 tablets every day by oral route in the morning for 3 days, for inflammat ion. 2023 active Not Available Not Available Not Avai lable prednisone 5 mg tablet PLEASE SEE ATTACHED FOR DETAILED DIRECTION S 01/07 completed Not Available Not Available Not Available sulfamethox azole 800 mg-trimetho prim 160 mg tablet TAKE 1 TABLET BY MOUTH TWICE A DAY FOR 7 DAYS 12/31 completed Not Available Not Available Not Available tramadol 50 mg tablet TAKE 1 TABLET BY MOUTH EVERY 6 HOURS NEEDED FOR PAIN 12/31 completed Not Available Not Available Not Available lamotrigine 25 mg tablet TAKE 1 TABLET BY MOUTH TWICE A DAY 12/31 completed Not Available Not Available Not Available alprazolam 0.25 mg tablet 04/03 completed Not Available Not Available Not Available amitriptyli ne 10 mg tablet TAKE 1 TABLET BY MOUTH EVERYDAY AT BEDTIME 06/19 completed Not Available Not Available Not Available meclizine 25 mg tablet TAKE 1 TABLET 3 TIMES A DAY 01/07 completed Not Available Not Available Not Available baclofen 10 mg tablet TAKE 1 TABLET BY MOUTH THREE TIMES A DAY NEEDED FOR MUSCLE SPASMS active Not Available Not Available No t Available pantoprazol e 40 mg tablet,dagmar yed release PLEASE SEE ATTACHED FOR DETAILED DIRECTION S 04/03 completed Not Available Not Available Not Available fluorometho lone 0.1 % eye drops,suspe nsion INSTILL 1 DROP INTO BOTH EYES 4 TIMES A DAY 04/03 completed Not Available Not Available Not Available lidocaine 5 % topical patch APPLY 1 PATCH TOPICALLY DAILY (REMOVE AFTER 12 HOURS AND KEEP OFF 12 HOURS) active Not Available Not Available No t Available promethazin e 25 mg tablet TAKE 1 TABLET BY MOUTH EVERY 12 HOURS NEEDED FOR 30 DAYS 01/07 completed Not Available Not Available Not Available docusate sodium 100 mg capsule TAKE 1 CAPSULE BY MOUTH TWICE A DAY active Not Available Not Available No t Available mupirocin 2 % topical ointment APPLY SPARINGLY TO NIPPLE THREE TIMES DAILY 12/31 completed Not Available Not Available Not Available zolpidem 5 mg tablet TAKE 1 TABLET BY MOUTH EVERY DAY AT BEDTIME NEEDED FOR 30 DAYS active Not Available Not Available No t Available ergocalcife rol (vitamin D2) 1,250 mcg (50,000 unit) capsule TAKE 1 CAPSULE BY MOUTH ONCE A WEEK FOR 12 DOSES. 04/03 completed Not Available Not Available Not Available lorazepam 1 mg tablet TAKE 1 TABLET BY MOUTH TWICE A DAY FOR 30 DAYS active Not Available Not Available No t Available ibuprofen 600 mg tablet TAKE 1 TABLET BY MOUTH UP TO 4 TIMES A DAY WITH FOOD OR MILK 12/31 completed Not Available Not Available Not Available methylpredn isolone 4 mg tablets in a dose pack TAKE 6 TABLETS ON DAY 1 DIRECTED ON PACKAGE AND DECREASE BY 1 TAB EACH DAY FOR A TOTAL OF 6 DAYS 04/03 completed Not Available Not Available Not Available ondansetron 4 mg disintegrat ing tablet DISSOLVE 1 TABLET BY MOUTH EVERY 6 HOURS NEEDED FOR NAUSEA/VO MITING 04/03 completed Not Available Not Available Not Available cefdinir 300 mg capsule Take 1 capsule twice a day by oral route with meal(s) for 10 days, for ear infection . 2023 active Not Available Not Available Not Avai lable fluticasone propionate 50 mcg/actuati on nasal spray,suspe nsion SPRAY 2 SPRAYS NASALLY DAILY FOR 5 DAYS 04/03 completed Not Available Not Available Not Available naratriptan 2.5 mg tablet TAKE 1 TABLET BY MOUTH EVERY DAY active Not Available Not Available No t Available doxycycline hyclate 100 mg tablet TAKE 1 TABLET BY MOUTH EVERY 12 HOURS FOR 7 DAYS 06/19 completed Not Available Not Available Not Available dicyclomine 10 mg capsule TAKE 1 CAP BY MOUTH FOUR TIMES A DAY BEFORE MEALS AND BEDTIME. USE NEEDED FOR ABDOMINAL CRAMPING 04/03 completed Not Available Not Available Not Available Ventolin HFA 90 mcg/actuati on aerosol inhaler INHALE 2 PUFFS INTO THE LUNGS 4 TIMES DAILY NEEDED FOR COUGH, WHEEZING OR SHORTNESS OF BREATH. 01/07 completed Not Available Not Available Not Available oxycodone 5 mg tablet TAKE 1 TABLET BY MOUTH EVERY 6 HOURS NEEDED FOR PAIN active Not Available Not Available No t Available Botox 100 unit injection 12/31 completed Not Available Not Available Not Available DentaGel 1.1 % PLEASE SEE ATTACHED FOR DETAILED DIRECTION S 12/31 completed Not Available Not Available Not Available ciprofloxac in 0.3 %-dexametha sone 0.1 % ear drops,suspe nsion INSTILL 4 DROPS INTO AFFECTED EAR(S) TWICE A DAY FOR 7 DAYS 06/19 completed Not Available Not Available Not Available pregabalin 225 mg capsule TAKE 1 CAPSULE (225MG) BY MOUTH TWICE A DAY active Not Available Not Available No t Available amitriptyli ne 06/19 completed Not Available Not Available Not Available sodium fluoride 1.1 % dental paste USE DIRECTED. TWICE DAILY 04/03 completed Not Available Not Available Not Available Gavilax 17 gram/dose oral powder DISSOLVE 17 GRAMS INTO WATER AND DRINK BY MOUTH EVERY DAY 04/03 completed Not Available Not Available Not Available Botox 200 unit injection active Not Available Not Available No t Available lidocaine 5 % topical ointment APPLY 1 APPLICATO R TOPICALLY NEEDED (JOINT PAIN) FOR UP TO 360 DAYS. active Not Available Not Available No t Available Linzess 145 mcg capsule TAKE 1 CAPSULE BY MOUTH EVERY DAY active Not Available Not Available No t Available Nurtec ODT 75 mg disintegrat ing tablet TAKE 1 TABLET ON THE TONGUE AND ALLOW TO DISSOLVE FOR 30 DAY(S) active Not Available Not Available No t Available COVID-19 At-Home Test kit TEST DIRECTED 12/31 completed Not Available Not Available Not Available Vitals Date Recorded Body height Provider Name an d Address Organization Details Last Updated DateTime 04/03/2024 167.64 cm Karla SHIRLEY - [facility] 04/03/2024 09:32:27 Date Recorded Body weight Provider Name an d Address Organization Details Last Updated DateTime 04/03/2024 08548.42 g Karla SHIRLEY - [facility] 04/03/2024 09:32:30 Date Recorded Oxygen saturation Oxygen saturation in Arterial blood by Pulse oximetry Provider Name and Address Organization Details Last Updated DateTime 04/03/2024 98 % 98 % Karla Kilgore PA - [facility] 04/03/2024 09:32:42 Date Recorded Pain severity - 0-10 verbal numeric rating [Score] - Reported Provider Name and Address Organization Details Last Updated DateTime 04/03/2024 7 Karla Kilgore PA - [facility] 04/03/2024 09:32:46 Date Recorded Heart rate Provider Name an d Address Organization Details Last Updated DateTime 04/03/2024 86 /min Karla Kilgore PA - [facility] 04/03/2024 09:32:50 Date Recorded Body temperature Provider Name a nd Address Organization Details Last Updated DateTime 04/03/2024 97.8 [degF] Karla Kilgore PA - [facility] 04/03/2024 09:32:55 Date Recorded Body height Provider Name an d Address Organization Details Last Updated DateTime 04/18/2024 167.64 cm Karla Kilgore PA - [facility] 04/18/2024 08:36:19 Date Recorded Pain severity - 0-10 verbal numeric rating [Score] - Reported Provider Name and Address Organization Details Last Updated DateTime 04/18/2024 7 Karla Kilgore PA - [facility] 04/18/2024 08:37:05 Date Recorded Body temperature Provider Name a nd Address Organization Details Last Updated DateTime 04/18/2024 97.1 [degF] Karla Kilgore PA - [facility] 04/18/2024 08:38:04 Date Recorded Body weight Provider Name an d Address Organization Details Last Updated DateTime 04/18/2024 59623.01 g Karla Kilgore PA - [facility] 04/18/2024 08:38:08 Date Recorded Oxygen saturation Oxygen saturation in Arterial blood by Pulse oximetry Provider Name and Address Organization Details Last Updated DateTime 04/18/2024 98 % 98 % Karla Kilgore PA - [facility] 04/18/2024 08:38:18 Date Recorded Heart rate Provider Name an d Address Organization Details Last Updated DateTime 04/18/2024 90 /min Karla Kilgore PA - [facility] 04/18/2024 08:38:21 Date Recorded Body height Provider Name an d Address Organization Details Last Updated DateTime 06/19/2024 167.64 cm Melissa Thorntonato PA - [facility] 06/19/2024 08:56:21 Date Recorded Body weight Provider Name an d Address Organization Details Last Updated DateTime 06/19/2024 18424.6 g Melissa Thorntonato PA - [facility] 06/19/2024 08:56:31 Date Recorded Body mass index (BMI) Provider Name and Address Organization Details Last Updated DateTime 06/19/2024 21.1 kg/m2 Melissa Thorntonato PA - [facility] 06/19/2024 08:56:32 Date Recorded Heart rate Provider Name an d Address Organization Details Last Updated DateTime 06/19/2024 68 /min Melissa Thorntonato PA - [facility] 06/19/2024 09:00:22 Date Recorded Respiratory rate Provider Name a nd Address Organization Details Last Updated DateTime 06/19/2024 18 /min Melissa Thorntonato PA - [facility] 06/19/2024 09:00:23 Date Recorded Body temperature Provider Name a nd Address Organization Details Last Updated DateTime 06/19/2024 98.5 [degF] Melissa Thorntonato PA - [facility] 06/19/2024 09:00:25 Date Recorded Body height Provider Name an d Address Organization Details Last Updated DateTime 12/31/2022 168.91 cm TONYA VIVIANA PA - [facility] 12/31/2022 11:54:09 Date Recorded Body mass index (BMI) Body weight Provider Name and Address Organization Details Last Updated DateTime 12/31/2022 22.3 kg/m2 78684.93 g TONYA DESMITH PA - [facility] 12/31/2022 11:54:12 Date Recorded Pain severity - 0-10 verbal numeric rating [Score] - Reported Provider Name and Address Organization Details Last Updated DateTime 12/31/2022 5 TONYA DESMITH PA - [facility] 12/31/2022 11:54:18 Date Recorded Oxygen saturation Oxygen saturation in Arterial blood by Pulse oximetry Provider Name and Address Organization Details Last Updated DateTime 12/31/2022 99 % 99 % TONYA MICHELLE PA - [facility] 12/31/2022 12:00:14 Date Recorded Heart rate Provider Name an d Address Organization Details Last Updated DateTime 12/31/2022 104 /min TONYA MICHELLE PA - [facility] 12/31/2022 12:00:17 Date Recorded Respiratory rate Provider Name a nd Address Organization Details Last Updated DateTime 12/31/2022 20 /min TONYA MICHELLE PA - [facility] 12/31/2022 12:00:18 Date Recorded Body temperature Provider Name a nd Address Organization Details Last Updated DateTime 12/31/2022 98.2 [degF] TONYA MICHELLE PA - [facility] 12/31/2022 12:00:22 Date Recorded Body height Provider Name an d Address Organization Details Last Updated DateTime 01/07/2023 168.91 cm TONYA MICHELLE PA - [facility] 01/07/2023 10:37:22 Date Recorded Body mass index (BMI) Body weight Provider Name and Address Organization Details Last Updated DateTime 01/07/2023 22.3 kg/m2 41810.93 g TONYA MICHELLE PA - [facility] 01/07/2023 10:37:28 Date Recorded Pain severity - 0-10 verbal numeric rating [Score] - Reported Provider Name and Address Organization Details Last Updated DateTime 01/07/2023 7 TONYA MICHELLE PA - [facility] 01/07/2023 10:37:32 Date Recorded Systolic blood pressure Diastolic blood pressure Provider Name and Address Organization Details Last Updated DateTime 04/03/2024 97 mm[Hg] 64 mm[Hg] Karla Kilgore PA - [facility] 04/03/2024 09:32:37 Date Recorded Systolic blood pressure Diastolic blood pressure Provider Name and Address Organization Details Last Updated DateTime 04/18/2024 96 mm[Hg] 65 mm[Hg] Karla Kilgore PA - [facility] 04/18/2024 08:38:15 Date Recorded Systolic blood pressure Diastolic blood pressure Provider Name and Address Organization Details Last Updated DateTime 06/19/2024 109 mm[Hg] 72 mm[Hg] Melissa Raygoza PA - [facility] 06/19/2024 09:00:07 Date Recorded Systolic blood pressure Diastolic blood pressure Provider Name and Address Organization Details Last Updated DateTime 12/31/2022 104 mm[Hg] 70 mm[Hg] TONYA MICHELLE PA - [facility] 12/31/2022 12:00:10 Social History Question Answer Notes LastModified by Organizat ion Details LastModified Time Tobacco Smoking Status Never Smoker TONYA MICHELLE maritza, PA - [facility] 12/31/2022 11:57:26 What Is Your Level Of Alcohol Consumption? None Information not available 12/31/2022 Are You Currently Employed? Yes Information not available 06/19/2024 Have You Had A Flu Shot This Season? No [email or web address] Information not available 04/18/2024 What Is Your Water Source? City Information not available 06/19/2024 What Is Your Heat Source? Other Information not available 06/19/2024 Have You Had Direct Contact, Or Contact During Intimacy, With Monkeypox Rash, Scabs, Or Body Fluids From A Person With Monkeypox? No Information not available 04/03/2024 What Was The Date Of Your Most Recent Tobacco Screening? 04/18/2024 [email or web address] Information not available 04/18/2024 Are You Passively Exposed To Smoke? No Information no t available 06/19/2024 Do You Use Any Illicit Or Recreational Drugs? No Information not available 12/31/2022 Have You Recently Traveled Abroad? No Information not available 12/31/2022 Sex: Unknown Functional Status None recorded. Mental Status None recorded. Family History Relationship Description Onset Age of this Age Resolved Age Notes LastModified by Organization Details LastModified Time Mother Hyperlipidem ia Not available 2022 11:57:11 Mother Leukemia Not availabl e 12/31/2022 11:57:17 Medical History No medical history recorded. Gynecological History Statement/Question Response Date of LMP 06/03/2024 Is there any chance of ? No LMP Definite Obstetrics History GPAL:G 0 P 0 0 0 0 Immunizations Vaccine Type Date Status Note Provider Nam e and Address Organization Details Recorded Time Influenza, MDCK, quadrivalent, PF 8 completed TONYA DESMITH null, PA - [facility] 12/31/2022 11:54:38 Influenza, MDCK, quadrivalent, PF 1 completed TONYA DESMITH null, PA - [facility] 12/31/2022 11:54:38 Influenza, recombinant, quadrivalent, PF 0 completed TONYA DESMITH null, PA - [facility] 12/31/2022 11:54:38 influenza, unspecified formulation 0 completed TONYA DESMITH null, PA - [facility] 12/31/2022 11:54:38 Influenza, split virus, trivalent, preservative 6 completed TONYA DESMITH null, PA - [facility] 12/31/2022 11:54:38 Influenza, split virus, quadrivalent, PF 5 completed TONYA DESMITH null, PA - [facility] 12/31/2022 11:54:38 Influenza, split virus, quadrivalent, PF 7 completed TONYA DESMITH null, PA - [facility] 12/31/2022 11:54:38 Past Encounters Encounter ID Performer Location Encounter Start Date Encounter Closed Date Diagnosis/Indication Diagnosis SNOMED-CT Code Diagnosis ICD10 Code Diagnosis Note [id number] [address] [place] [address] 03/10/2019 15:42:30 03/10/2019 17:32:00 [id number] [address] [place] [address] 01/26/2022 10:49:30 01/26/2022 12:09:11 [id number] [address] [place] [address] 07/21/2021 11:45:18 07/21/2021 15:15:57 [id number] [address] [place] [address] 12/26/2019 08:04:10 12/26/2019 08:36:06 [id number] [address] [place] [address] 06/11/2022 18:25:04 06/11/2022 19:35:13 [id number] Alessia [place] [facility] [address] [facility] [address] [place] [address] 12/31/2022 11:33:22 12/31/2022 13:09:21 Acute pharyngitis [id number] J02.9 Acute conj unctivitis of left eye [id number] 97983 H10.32 [id number] Alessia Mead MD [address] [facility] [address] [place] [address] 01/07/2023 10:17:20 01/07/2023 12:01:17 Left without being seen [id number] 9102 Z53.21 [id number] Deacon Evans DO _Spr [facility] [address] [facility] [place] [address] 04/03/2024 09:21:52 04/03/2024 10:13:05 Otitis externa of left ear [id number] H60.92 See pcp in 3-4 days or return to urgent care in 3-4 days if cant be seen by pcp for follow up. Go to ER if anything worsens. Otc tylenol as needed for pain. Symptomati c treatment. All of patients questions have been answered. Patient has understand ing and agreement of all of this. Acute left otitis media [id number] H66.92 pt is rx zpak. sx tx. slight erythema to left tm [id number] FERN [facility] [address] [place] [address] 04/18/2024 08:23:00 04/18/2024 09:23:34 Otalgia of left ear [id number] H92.02 [id number] [place] [address] [address] [facility] [place] [address] 06/19/2024 08:40:12 06/19/2024 09:15:56 Acute serous otitis media of bilateral ears [id number] H65.03 You have been diagnosed with a Ear Infection Today. Suggestion s to help with your discomfort and recovery include:1. Laying the effected ear on a heating pad or applying a warm rice bag or something warm.2. Motrin and Tylenol Regularly - this will help with pain and inflammati on of the Eustachian Tube - this is very important for a speedy recovery.3 . Antihistam ine like Claritin/Z yrtec/Uriel gra/Benedr yl - will help with congestion and swelling in the Eustachian Tube.4. Saline Nasal Spray5. Salt Water Gargle6. Staying Hydrated If you develop any of the following Symptoms I would be seen again:1. Fever > 101.02. Stiff Neck3. Swelling of the Lymph Nodes around the ear or neck4. Worsening Pain5. Bleeding from the Ear6. Severe Sore Throat Go Immediatel y to the ER if you develop1. Severe Headache2. Chest Pain3. Shortness of Breath. Antibiotic s typically take 4-5 days to start working so do the above to help with your symptoms. Probiotics are important while taking antibiotic s - I recommend Florastor Make sure you finish the full course of the antibiotic s - if you don't this can lead to antibiotic resistance . Thank you for using [employer] today - and don't hesitate to contact our office if you have any concerns or questions. Bilateral earache [id number] H92.03 Health Concerns Section Related Observation LastModified by Organization Detai ls LastModified Time None Recorded Concern Status LastModified by Organization Details LastModified Time None Recorded Advance Directives Directive None Recorded Payers Encounter Date Sequence Insurance Name Policy Number Policy Toscano Covered Member ID Toscano Member ID Guarantor Name 12/31/2022 1 [facility] (MEDICAID HMO) MARIBELL Ruffinarza [id number] Alondra Dykes 01/07/2023 1 [facility] (MEDICAID HMO) MARIBELL Ruffinarza [id number] Alondra Ruffinarza 04/03/2024 1 [facility] (MEDICAID HMO) MARIBELL Ruffinarza [id number] Mosesie Dykes 04/18/2024 1 [facility] (MEDICAID HMO) MARIBELL Dykes [id number] Alondra Dykes 06/19/2024 1 [facility] (MEDICAID HMO) MARIBELL Dykes [id number] Alondra Dykes Notes Date Note Type Note Provider Name and Address Organization Details Recorded Time 12/31/19 23 text/htm l Sore throatReported bypatient.Source of patient informationInformation obtained from patient; Patient arrived at Urgent Care ambulatory Location:throat Severity:mild Quality:hurts to swallow Onset/Timin days Associated Symptoms:no cough; no sputum production; no shortness of breath; no wheezing; no sinus pain; no vomiting; no nausea; No hoarseness Context:non-smoker;sick contactNotes:32 year old female presenting for evaluation of a sore throat, bilateral ear pain and left eye irritation, redness and crusty yellow discharge for one day. Her 2 children have similar symptoms. No fever, chills, nasal congestion, runny nose, headache, rash, stiff neck, cough, chest pain, shortness of breath, GI symptoms or body aches. No blurry vision, roger eye pain, photophobia, foreign body sensation, eye trauma, chemical exposure or contact lens use. No drainage from her ears. Alessia Mead MD [address] [facility] [place], [address], [facility] 01/01/2023 13:02:57 04/03/20 24 text/htm l hx of multiple ear infections in past. follows ent for this. has now left ear pain for the past 4 days. getting worse. no trauma. no fevers. no hearing loss. other uri sx. no chance she is pregant or nursing. Deacon Evans DO [address] [facility] [place], [address], [place] [employer] [facility] 04/03/2024 11:57:32 04/18/20 24 text/htm l Ear Pain Brief HPIReported bypatient.Location:left Onset/Timing:recurrent episode; recent otitis extrena has been treating with drops. Quality:no itching; no discharge from the ears;aching pain;dull pain Severity:no fever; able to perform daily activities Context:no recent URI; no recent trauma; no immunocompromise; no dental problems; no recent airplane travel;recent ear infection Alleviating factors:ototopical antibiotics: ciprodex FERN [address] [place], [address], [place] - [facility] 04/18/2024 09:22:30 06/19/20 24 text/htm l CongestionReported bypatient.Notes:nasal congestion with post nasal drip x 3 days. denies nay fever or fever with chills. no SOB or respiratory distress.Ear Pain Brief HPIReported bypatient.Location:pain radiates to neck; bilateral Onset/Timing:intermittent pain; gradual onset Duration:occurs daily; sensation/episode variable length Quality:aching pain;sharp pain Severity:getting worse; current pain 5/10 Context:recent ear infection Alleviating factors:ototopical antibiotics: ; nasal steroid spray Aggravating factors:sinus infections; allergies; irrigation of ear Associated Symptoms:Cough;nasal congestion;nasal discharge Boyd Dodge NP [address] [place], [address], [place] - [facility] 06/19/2024 09:11:50 OBGyn Episode No OBEpisode recorded.
--- OUTSIDE RECORDS SUMMARY | 2024-11-30 08:10 | XMS_ITS | Encounter Summary ---
Author Organization [facility] Address [address] [place] [address] Care Team Providers Care Wheel Braider Name Role Phone Ho Araya MD Primary Care Provider [phone] Reason for Visit * Reason Onset Date Comments faxed refill 11/09/2024 Encounter Details Date Type Department Care Team (Late st Contact Info) Description 11/09/2024 Telephone Internal Medicine - [address] [address] Ho Araya MD [address] [place] [address] faxed refill Social History Tobacco Use Types Packs/Day Years [...] on file documented as of this encounter Ordered Prescriptions Prescription Sig Dispensed Refills Start Date End Da te lidocaine (XYLOCAINE) 5 % ointment Apply topically 2 (two) times a day. 35.44 g 11/09/2024 documented in this encounter Progress Notes * Ashley Mendez MA - 11/09/2024 4:20 PM EST FYI : Dr. Quiana Harman Screws prescribed the prescription to patient * Ho Araya MD - 11/09/2024 4:11 PM EST Not prescribed by me * Chayito Max MA - 11/09/2024 3:24 PM EST JAVY 10.22.24 No results found for: GLUCOSE , CALCIUM , NA , K , CO2 , CL , BUN , CREATININE documented in this encounter Plan of Treatment Upcoming Encounters Date Type Department Care Team (Late st Contact Info) Description 12/01/2024 3:30 PM EST Office Visit Orthopedic Surgery [place] [address] [address] Diaz Galeana, DPM [address] [address] 05/02/2025 10:30 AM EDT Office Visit [facility] Hematology Oncology [address] [place] [address] Clotilde Lux DO [address] [place] [address] documented as of this encounter Visit Diagnoses Not on filedocumented in this encounter Discontinued Medications Medication Sig Discontinue Reason Start Date End Da te lidocaine (XYLOCAINE) 5 % ointment Apply 1 Applicator topically as needed (joint pain) for up to 360 days. Reorder 05/17/2024 11/09/2024 documented as of this encounter Care Teams Wheel Braider Relationship Specialty Start Date End Date Ho Araya MD [address] [place] [address] PCP - General Internal Medicine 07/25/15 documented as of this encounter
--- OUTSIDE RECORDS SUMMARY | 2024-11-30 08:10 | XMS_ITS | Encounter Summary ---
Author Organization [facility] Address [address] [place] [address] Care Team Providers Care Window Machine Operator Name Role Phone Ho Araya MD Primary Care Provider [phone] Reason for Visit * Reason Onset Date Comments Abdominal Pain 10/11/2024 Encounter Details Date Type Department Care Team (Late st Contact Info) Description 10/11/2024 Telephone Internal Medicine - [address] [address] Ho Araya MD [address] [place] [address] Abdominal Pain Social History Tobacco Use Types Packs/Day Years [...] on file documented as of this encounter Progress Notes * Skylar Villasenor LPN - 10/11/2024 10:05 AM EST Spoke with pt she states she is having abd pain like she had in the past. Denies vomiting, exercising and trauma. Pt has normal BM's and urinates normally. I noted she see's [facility] for GI issues but they don't have any soon appt's. I told pt if she see's a specialist she needs to call them. No available appt here. Pt said she will call them. * Devan Ingram - 10/11/2024 9:07 AM EST Patient call requires triage: Symptoms patient is presenting: stomach pain, ribs discomfort, back pain How long has patient had these symptoms?: 4 days For ALL patients calling to schedule any appointment (routine, sick visit, follow up, consult, etc.) in the outpatient setting please ask the following questions: Do you have fever of higher than 101, sore throat with difficulty swallowing or severe shortness ofbreath? no If YES to any of these above symptoms, send a message to triage and do not book. Red dot. If no, an audio or video visit should be booked. Have you had close contact with someone with Coronavirus in the last 14 days? no Have you traveled abroad? no Have you traveled recently to another state outside of [place], [place], [place], [place], [place], [place], [place]? no o If yes, did you quarantine for 14 days or have a negative covid test? no If yes to any of the above, patient is not to be scheduled in office until after 14 day quarantine or negative covid test. If pain or injury related was it due to an accident at work or from a motor vehicle accident? If yes, date of accident/Injury: No If yes, gather 3rd alliance party insurance information Third Green Party Information: PCP: Ho Araya MD Payor: [facility] PLAN / Plan: [facility] MEDICAID / Product Type: *No Product type* / documented in this encounter Plan of Treatment Upcoming Encounters Date Type Department Care Team (Late st Contact Info) Description 12/01/2024 3:30 PM EST Office Visit Orthopedic Surgery [facility] [address] [phone] Diaz Galeana DPM [address] [address] 05/02/2025 10:30 AM EDT Office Visit [facility] Hematology Oncology [address] [place] [phone] Clotilde Lux, DO [address] [place] [address] documented as of this encounter Visit Diagnoses Not on filedocumented in this encounter Care Teams Window Machine Operator Relationship Specialty Start Date End Date Ho Araya MD [address] [place] [address] PCP - General Internal Medicine 07/25/15 documented as of this encounter
--- OUTSIDE RECORDS SUMMARY | 2024-11-30 08:10 | XMS_ITS | Encounter Summary ---
Author Organization [facility] Address [address] [place] [address] Care Team Providers Care Back Tender Cylinder Name Role Phone Ho Araya MD Primary Care Provider [phone] Encounter Details Date Type Department Care Team (Late st Contact Info) Description 11/08/2024 Telephone Gastroenterology - [place] [address] [address] [place] [address] Christos Blackwell PA [address] [place] [address] Social History Tobacco Use Types Packs/Day Years [...] as of this encounter Progress Notes * Carli Jack MA - 11/15/2024 4:17 PM EST Left a vm for the patient to call our office back. * FERN Reynolds - 11/08/2024 4:57 PM EST I did order a CT of abdomen and pelvis and have not seen those results yet. Please let me know if she did perform these and if not, the CT might give us more of an answer. In regards to her mentioning about SIBO, the treatment for SIBO would be another antibiotic which would not be helpful if she has upset her alma of her intestines. If anything I would suggest that she try using probiotics to see if that will help stabilize her bacteria in her intestines. We could also test her for H. pylori however she would have to be off of the Protonix for 2 weeks and if she is willing to do that, I canorder the H. pylori test. Please let me know what she like to do for the next step documented in this encounter Plan of Treatment Upcoming Encounters Date Type Department Care Team (Late st Contact Info) Description 12/01/2024 3:30 PM EST Office Visit Orthopedic Surgery [facility] [address] [address] Diaz Galeana, DPM [address] [address] 05/02/2025 10:30 AM EDT Office Visit [facility] Hematology Oncology [address] [place] [address] Clotilde Lux, [address] [place] [address] documented as of this encounter Visit Diagnoses Not on filedocumented in this encounter Care Teams Back Tender Cylinder Relationship Specialty Start Date End Date Ho Araya MD [address] [place] [address] PCP - General Internal Medicine 07/25/15 documented as of this encounter
--- OUTSIDE RECORDS SUMMARY | 2024-11-30 08:10 | XMS_ITS | Encounter Summary ---
Author Organization [facility] Address [address] [place] [address] Care Team Providers Care Transportation Department Supervisor Name Role Phone Ho Araya MD Primary Care Provider [phone] Reason for Visit * Reason Onset Date Comments Letter for School/Work 11/19/2024 Encounter Details Date Type Department Care Team (Late st Contact Info) Description [facility]/19[facility]24 [facility] [address] [place] [phone] Ho Araya MD [address] [place] [address] Letter for School/Work Social History Tobacco Use Types Packs/Day Years [...] as of this encounter Progress Notes * Ho Araya MD - 11/29/2024 12:43 PM EST printed * Chayito Max MA - 11/22/2024 12:51 PM EST Letter pending, please sign if appropriate. * Bisi Curtis 11/22/2024 12:33 PM EST Badge # [id number] * Chayito Max MA - 11/19/2024 1:41 PM EST Need badge number * Alesha Adamson - 11/19/2024 12:50 PM EST Pt states she has jury duty on 02-10-25 and due to her physical and mental condition she cannot make. Pt is wondering if she can get a letter stating her medical reasons why she cannot make jury duty. documented in this encounter Plan of Treatment Upcoming Encounters Date Type Department Care Team (Late st Contact Info) Description 12/01/2024 3:30 PM EST Office Visit Orthopedic Surgery [facility] [address] [phone] Diaz Galeana DPM [address] [address] 05/02/2025 10:30 AM EDT Office Visit [facility] Hematology Oncology [address] [place] [phone] Clotilde Lux, DO [address] [place] [address] documented as of this encounter Visit Diagnoses Not on filedocumented in this encounter Care Teams Transportation Department Supervisor Relationship Specialty Start Date End Date Ho Araya MD [address] [place] [address] PCP - General Internal Medicine 07/25/15 documented as of this encounter
--- OUTSIDE RECORDS SUMMARY | 2024-11-30 08:10 | XMS_ITS | Encounter Summary ---
Author Organization [employer] Address [address] [place] [address] Care Team Providers Care Business Instructor Name Role Phone Ho Araya MD Primary Care Provider [phone] Reason for Visit * Reason Onset Date Comments PT1 11/19/2024 Piero bonner @ [facility] Encounter Details Date Type Department Care Team (Late st Contact Info) Description 11/19/[facility]24 [facility] [address] [place] [phone] Ho Araya MD [address] [place] [address] PT1 (Piero Encarnacion @ [facility]) Social History Tobacco Use Types Packs/Day Years [...] as of this encounter Progress Notes * Scarlett Sevilla MA - 11/22/2024 9:36 AM EST PT-1 Auth # [id number] good for 4 visit per 1 yr. * Alesha Adamson - 11/19/2024 12:52 PM EST PT-1 Request Call [employer] Medicaid [facility] new provider or submitter number is [id number] Verify and document patients [place] Health insurance ID # (NOT [facility] ID): [id number] Payor: [employer] PLAN / Plan: [place] MEDICAID / Product Type: *No Product type* / Patient mailing address: [address] [place] [address] (home) [phone] (work) Pt. demographics verified? yes If not accurate, update registration. Is this a NEW request or a RENEWAL? New request Name of treating facility: [facility] Name (first & last) of treating provider? required : Piero Encarnacion PA-C What is the medical reason why the patient is seeing the above provider? CRPS Address/Zip code for treating provider: [address] [place] [address], [place] [address] Phone # for treating provider: [phone] Is the provider in the [facility] [employer] network (do they accept [place] Health insurance)? yes What specialtly is this provider? Rheumatology When is the visit scheduled for? 05-04-25 1:00pm How often you will be seeing this particular provider? Every 6 months Do you have friends or family who can transport you to this visit? no If yes, do not complete request. Is there anything stopping you from using public transportation? If yes, explain: yes Is there a medical reason (diagnosis) why you are unable to use public transportation? If yes, explain: Yes, CRPS Does patient carry self-administered oxygen? no Does patient require door through door or room to room service( ex: member cannot ambulate or wait independently outside their home/facility for transportation. no Is this is for an Adult Day Program or Suboxone clinic No If yes to above what is arrival time n/a and what is departure time n/a If yes to above how many days a week? N/a Do you need a wheelchair van? no If you use a wheelchair what is the height, width & length of the wheelchair? N/a Do you need an escort to accompany you? If yes, explain why. no Will you have an alternative pick-up address? no Do you have a service animal? no PT DOES NOT NEED RELEASE OF INFORMATION SIGNED documented in this encounter Plan of Treatment Upcoming Encounters Date Type Department Care Team (Late st Contact Info) Description 12/01/2024 3:30 PM EST Office Visit Orthopedic Surgery - [place] [address] [phone] Diaz Galeana, DPM [address] [address] 05/02/2025 10:30 AM EDT Office Visit [facility] Hematology Oncology [address] [place] [phone] Clotilde Lux, [address] [place] [address] documented as of this encounter Visit Diagnoses Not on filedocumented in this encounter Care Teams Business Instructor Relationship Specialty Start Date End Date Ho Araya MD [address] [place] [address] PCP - General Internal Medicine 07/25/15 documented as of this encounter
--- OUTSIDE RECORDS SUMMARY | 2024-11-30 08:10 | XMS_ITS | Clinical Summary ---
Author Organization [facility] Address [address] [place] [address] Care Team Providers Care Sprinkler Truck Driver Name Role Phone Wendi Toney MD Primary Care Provider [phone] Social History Tobacco Use Types Packs/Day Years Used Date Smoking Tobacco: Never Assessed Sex and Gender Information Value Date Recorded Sex Assigned at Not on file Gender Identity Not on file Sexual Orientation Not on file Plan of Treatment Health Maintenance Due Date Last Done Comments Hepatitis C Virus Screening 1992 HIV Screening 2005 DTaP/Tdap/Td Vaccines (1 - Tdap) 2011 Hepatitis B Vaccines (1 of 3 - 19+ 3-dose series) 2011 Pap Smear (Ages 21-65) 2013 Influenza Vaccine 06/03/2024 COVID-19 Vaccine ( - 2023-2 5 season) 2024 HPV Vaccines Aged Out No longer eligi ble based on patient's age to complete this topic Pneumococcal Vaccine: Pediat alan (0-5 Years) and At-Risk Patients (6 to 49 Years) Aged Out No longer eligible b ased on patient's age to complete this topic Care Teams Sprinkler Truck Driver Relationship Specialty Start Date End Date Wendi Toney MD [address] [facility] [place] [address] PCP - General Internal Medicine 08/31/20
--- OUTSIDE RECORDS SUMMARY | 2024-11-30 08:10 | XMS_ITS | Encounter Summary ---
Author Organization [facility] Address [address] [place] [address] Care Team Providers Care Magisterial District Judge Name Role Phone Ho Araya MD Primary Care Provider [phone] Encounter Details Date Type Department Care Team (Late Contact Info) Description 09/24/2024 Lab Requisition [facility] - Main Lab [address] [facility] [place] [phone] Sergio Gross PA [address] [facility] [address] [place] [phone] Other microscopic hematuria Social History Tobacco Use Types Packs/Day Years [...] on file documented as of this encounter Plan of Treatment Upcoming Encounters Date Type Department Care Team (Late Contact Info) Description 12/01/2024 3:30 PM EST Office Visit Orthopedic Surgery - [place] [address] [address] Diaz Galeana DPJanet [address] [address] 05/02/2025 10:30 AM EDT Office Visit [facility] Hematology Oncology [address] [place] [address] Clotilde Lux DO [address] [place] [address] documented as of this encounter Procedures Procedure Name Priority Date/Time Associated Diagnosis Comments AP OUTSIDE CONSULT Routine 09/21/2024 12 :00 AM EST Other microscopic hematuria documented in this encounter Results * Anatomic pathology outside consult (09/21/2024 12:00 AM EST) FISH Addendum Results of [employer]ion fluorescence in situ hybridization (FISH) testing: CEP3: Normal CEP7: Normal CEP17: Normal LSI 9p21: Normal Interpretation: Normal profile Controls stained appropriately. Note: The results are intended as a screening device and should be interpreted in association with other clinical and pathological findings. 10/12/2024 9:06 AM [facility] Addendum electronically signed by Gaetano Fernando MD on 10/12/2024 at 9:06 AM Final Diagnosis Urine, Voided: Negative for high grade urothelial carcinoma. Note: UroVysion testing to follow. 10/12/2024 9:06 AM [facility] Clinical Information [id number], Urine cyto/urine FISH. 10/12/2024 9:06 AM [facility] Gross Description A. Urine, Voided, : [id number] recd 1 TP cyto 1 TP fish. 10/12/2024 9:06 AM [facility] Disclaimer Unless otherwise specified, all tissue is 10% NB formalin fixed and paraffin embedded. 10/12/2024 9:06 AM [facility] Tissue Urine specimen from urethra / Unknown 09/21/2024 09/24/2024 1:47 PM EST Sergio [facility] HOSPITAL LAB [address] [place] [address], documented in this encounter Visit Diagnoses Diagnosis Other microscopic hematuria documented in this encounter Care Teams Magisterial District Judge Relationship Specialty Start Date End Date Ho Araya MD [address] [place] [address] PCP - General Internal Medicine 07/25/15 documented as of this encounter
--- OUTSIDE RECORDS SUMMARY | 2024-11-30 08:10 | XMS_ITS | Continuity of Care Document ---
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 Phone Quiana MENENDEZ, Ho Humphrey Primary Care Physician [phone] [place] [facility] [place]04[place] - 11/14/[address] [address]- Attending Physician: Not on Staff, Attending MD Encounter Type: Pre-OutPatient One Time Allergies, Adverse Reactions, Alerts Substance Criticality Severity Reaction Reaction Severity Status penicillin Low criticality Mild Rash Act philly Reglan Anxiety state Active Immunizations Given and Recorded Vaccine Date Status Refusal Reason tetanus/diphtheria/pertussis, acel(Tdap) 08/23/19 Given tetanus/diphtheria/pertussis, acel(Tdap) 08/11/14 Given influenza virus vaccine, inactivated 08/02/19 Give n influenza virus vaccine, inactivated 08/11/14 Give n influenza virus vaccine, inactivated 07/26/11 Give n influenza virus vaccine, inactivated 08/09/10 Give n influenza virus vaccine, inactivated 1 09/03/07 Gi mode influenza virus vaccine, inactivated 10/03/06 Give n Influenza Virus Vaccine (oldterm) 11/03/18 Recorde d Influenza Virus Vaccine (oldterm) 2 08/11/08 Given influ virus vac, H1N1, inactive(oldterm) 09/25/09 Given Human Papillomavirus Vaccine 3 08/11/08 Given Human Papillomavirus Vaccine 01/20/08 Given Human Papillomavirus Vaccine 09/03/07 Given Meningococcal Conjugate Vaccine 01/20/08 Given Varicella Virus Vaccine 09/03/07 Given Tet/Diphth/Acel, Pertussis (oldterm) 09/03/07 Give n tetanus-diphtheria toxoids (Td) 4 03/23/04 Given 1Admin Note: SANOFI 2Admin Note: SANOFI PASTEUR VIS GIVEN TODAY 3Admin Note: VIS GIVEN 4Admin Note: TD Medications ACETAMINOPHEN-COD #4 TABLET ACETAMINOPHEN-COD #4 TABLET, TAKE 1 TABLET BY MOUTH 2 TIMES DAILY NEEDED FOR PAIN FOR UP TO 10 DAYS. Start Date: 08/01/24 Status: Ordered Repeat number: 1 BACLOFEN 10 MG TABLET BACLOFEN 10 MG TABLET, TAKE 1 TABLET BY MOUTH THREE TIMES A DAY NEEDED FOR MUSCLE SPASM Start Date: 08/01/24 Status: Ordered Repeat number: 1 Dilaudid 2 mg oral tablet 1 tablet = 2 mg, By Mouth, Every 4 hours, PRN for pain, # 6 tablet, 0 Refills, Maintenance, :23:00 PM EST, Tablet, [id number], Partial fill upon patient request if the prescription is for a schedule II opioid drug., 168, cm, 09/08/24 12:48:00 EST, Height, 52.5, kg, 09/08/24 12:48:00 EST, Dry Weight Start Date: 09/09/24 Status: Ordered Quantity: 6.0 Unit: tablet Repeat number: 1 fluconazole 150 mg oral tablet See Instructions, 1 tablet By Mouth Once, repeat in 72hrs x2., # 3 tablet, 1 Refills, Soft Stop, 08/06/24 12:19:00 PM EDT, [facility]/pharmacy #[id number], Partial fill upon patient request if the prescription is for a schedule II opioid drug., 166, cm, 08/06/24 12:03:00 EDT, Height, 55.5, kg, 08/01/24 10:48:00 EDT, Dry Weight Start Date: 08/06/24 Status: Ordered Quantity: 3.0 Unit: tablet Repeat number: 2 Liletta 52 mg intrauterine device 1 each = 52 mg, Vaginally, Once, # 1 each, 0 Refills, Maintenance, 09/15/20 10:20:00 AM EST Start Date: 09/15/20 Status: Ordered Quantity: 1.0 Unit: each Repeat number: 1 Linzess 145 mcg oral capsule 1 capsule = 145 mcg, By Mouth, Daily, # 30 capsule, 0 Refills, Maintenance, 08/01/24 12:02:00 AM EDT, Capsule, Partial fill upon patient request if the prescription is for a schedule II opioid drug. Start Date: 08/01/24 Status: Ordered Quantity: 30.0 Unit: capsule Repeat number: 1 LORazepam 1 mg oral tablet TAKE 1 TABLET BY MOUTH TWICE A DAY FOR 30 DAYS Start Date: 08/01/24 Status: Ordered Repeat number: 1 MethylPREDNISolone Dose Pack 4 mg oral tablet TAKE 6 TABLETS ON DAY 1 DIRECTED ON PACKAGE AND DECREASE BY 1 TAB EACH DAY FOR A TOTAL OF 6 DAYS Start Date: 08/01/24 Status: Ordered Repeat number: 1 naratriptan 2.5 mg oral tablet 1 tablet = 2.5 mg, By Mouth, Daily, PRN for migraine headache, may repeat dose once in 4 hours, # 18 tablet, 0 Refills, Maintenance, 08/01/24 12:02:00 AM EDT, Tablet, Partial fill upon patient requestif the prescription is for a schedule II opioid drug. Start Date: 08/01/24 Status: Ordered Quantity: 18.0 Unit: tablet Repeat number: 1 Nurtec ODT 75 mg oral tablet, disintegrating TAKE 1 TABLET ON THE TONGUE AND ALLOW TO DISSOLVE FOR 30 DAY(S) Start Date: 08/01/24 Status: Ordered Repeat number: 1 ondansetron 8 mg oral tablet TAKE 1 TABLET BY MOUTH EVERY DAY NEEDED X 30 DAYS Start Date: 08/01/24 Status: Ordered Repeat number: 1 pantoprazole 40 mg oral delayed release tablet TAKE 1 TABLET IN THE MORNING ON EMPTY STOMACH, WAIT 30 MINS AND THEN EAT TO ACTIVATE THE MEDICATION Start Date: 08/01/24 Status: Ordered Repeat number: 1 pregabalin 225 mg oral capsule TAKE 1 CAPSULE BY MOUTH TWICE A DAY Start Date: 08/01/24 Status: Ordered Repeat number: 1 QUEtiapine 50 mg oral tablet TAKE 1 TABLET BY MOUTH THREE TIMES A DAY NEEDED Start Date: 08/01/24 Status: Ordered Repeat number: 1 sertraline 25 mg oral tablet TAKE 1 TABLET BY MOUTH EVERY DAY Start Date: 08/01/24 Status: Ordered Repeat number: 1 sulfamethoxazole-trimethoprim 800 mg-160 mg oral tablet 0 Refills, Maintenance, 07/31/24 11:56:00 PM EDT, Partial fill upon patient request if the prescription is for a schedule II opioid drug. Start Date: 07/31/24 Status: Ordered Repeat number: 1 Ventolin HFA 108 mcg/inh inhalation aerosol with adapter 1 puffs, Inhalation, 4 times a day, PRN for wheezing, # 18 Gm, 0 Refills, Maintenance, 07/31/24 11:59:00 PM EDT, Aerosol, Partial fill upon patient request if the prescription is for a schedule II opioid drug. Start Date: 07/31/24 Status: Ordered Quantity: 18.0 Unit: g Repeat number: 1 zolpidem 5 mg oral tablet TAKE 1 TABLET BY MOUTH EVERY DAY AT BEDTIME NEEDED FOR 30 DAYS Start Date: 08/01/24 Status: Ordered Repeat number: 1 Problem List Condition Confirmation Course Effective Dates Status H ealth Status Informant Cervical radiculopathy Confirmed Active Chronic constipation Confirmed 2006 Active Chronic pelvic pain in female Confirmed Active Complex regional pain syndrome I Confirmed Active Dysmenorrhea Confirmed 2006 Active Adenomyosis suspected Confirmed Active GERD (gastroesophageal reflux disease) Confirmed Active History of chlamydia Confirmed Active IUD (intrauterine device) in place, Sidra inserted 09/15/20 Confirmed Active Migraine without aura Confirmed Worsening Active History of partial molar - hcgs followed down to zero and stayed at zero for > 6 months Confirmed Active Dyspareunia in female Confirmed Active Underweight Confirmed Active Social History Social History Type Response Smoking Status Never (less than 100 in lifetime) entered on: 04/12/24 Sex Sex Representation Female (finding) Patient Care team information Care Team Personnel Name: Verenice Ferrara RN Position: [facility] AMB Nurse Member Role: Primary Care Nurse Name: Marilyn Luna RN Position: [facility] RN Member Role: Primary Care Nurse Name: Quiana MENENDEZ, Ho Humphrey Position: Reference Physician Member Role: PCP Address: [address] [place] [address] Telecom: Care Team Related Persons Name: MARLYN HOWARD Name: SIMON HOWARD Name: REHAN DIXON Name: EVY LAWTON Name: ANTWON NAVA Insurance Providers Guarantor name: JARRETT LAWTON Health Plan Information #: 1 Payer: [employer] Member Number: [id number] Policy Number: NA Group Number: NA Health Plan Information #: 2 Payer: [employer] Member Number: [id number] Policy Number: NA Group Number: NA
--- OUTSIDE RECORDS SUMMARY | 2024-11-30 08:10 | XMS_ITS | Clinical Summary ---
Author Organization [facility] Address [address] [place] [address] Phone Care Team Providers Care Laboratory Administrative Director Name Role Phone Ho Araya MD Primary Care Provider [phone] Allergies Active Allergy Reactions Criticality Noted Date Comments Metoclopramide Hcl Other 03/30/2019 Anxiety Ibuprofen 09/13/2024 Because gastritis Penicillins Rash Medium 01/07/2012 Medications Medication Sig Dispensed Refills Start Date End Date Status BACLOFEN ORAL Take 1 tablet (10 mg total) by mouth 3 (three) times a day. - Oral Active linaclotide (LINZESS ORAL) Take 1 capsule (145 mcg total) by mouth every morning before breakfast. - Oral Active LORazepam (ATIVAN) 1 mg tablet Take 1 tablet (1 mg total) by mouth every 6 (six) hours as needed. - Oral Active naratriptan HCl (NARATRIPTAN ORAL) Take by mouth. - Oral Act philly ondansetron (ZOFRAN) 4 mg tablet Take by mouth daily as needed for nausea. - Oral Active pregabalin (LYRICA ORAL) Take 1 capsule (225 mg total) by mouth 2 (two) times a day. - Oral Active QUEtiapine (SEROquel) 25 mg tablet Take 1 tablet (25 mg total) by mouth 4 (four) times a day. - Oral Active rimegepant (NURTEC) 75 mg dispersible tablet Take 1 tablet (75 mg total) by mouth. - Oral Active zolpidem tartrate (AMBIEN ORAL) Take 1 tablet (5 mg total) by mouth every night at bedtime as needed for sleep. - Oral Active methylPREDNISo lone (MEDROL) 4 mg tablet Sig - Route: Take 1 Package by mouth See Admin Instructions. Dispense 1 packet ; see instructions on packet - Oral Sent to pharmacy as: methylPREDNISolone 4 MG Oral Tablet Therapy Pack Active NUTRITIONAL SUPPLEMENTS ORAL Sig - Route: Take 1 Can by mouth daily. - Oral Sent to pharmacy as: Ensure Active Oral Liquid Active albuterol HFA (PROVENTIL HFA;VENTOLIN HFA) 108 (90 Base) MCG/ACT inhaler Sig - Route: Take 2 Puffs by mouth every 4 hours as needed for Cough or Wheezing. - Oral Sent to pharmacy as: Albuterol Sulfate HFA 108 (90 Base) MCG/ACT Inhalation Aerosol Solution (Ventolin HFA) Active pantoprazole (PROTONIX) 40 mg EC tablet Take 1 Tablet by mouth daily. Take in am on empty stomach, wait 30 mins and then eat to activate the medication 09/24/20 22 Active diclofenac (VOLTAREN) 1 % topical gel Apply 4 g topically 2 times daily as needed (Thigh pain). 05/12/20 24 Active dicyclomine (BENTYL) 10 mg capsule 03/09/20 24 Active linaCLOtide (Linzess) 145 mcg capsule Take 1 tablet by mouth 1 (one) time each day. 01/24/20 24 Active cetirizine (ZyrTEC) 10 mg tablet Take 1 tablet (10 mg total) by mouth 1 (one) time each day. 01/13/20 24 Active promethazine (PHENERGAN) 12.5 mg tablet Take 1 tablet (12.5 mg total) by mouth every 6 (six) hours if needed. 12/03/19 24 Active fluticasone propionate (FLONASE) 50 mcg/actuation nasal spray SPRAY 2 SPRAYS INTO EACH NOSTRL ONCE DAILY 10/28/20 23 Active docusate sodium (COLACE) 100 mg capsule Take 1 capsule (100 mg total) by mouth 2 (two) times a day. 08/26/20 23 Active senna (SENOKOT) 8.6 mg tablet Take 1 tablet (8.6 mg total) by mouth 1 (one) time each day. 02/08/20 23 Active pregabalin (LYRICA) 225 mg capsule Take 1 capsule (225 mg total) by mouth 2 (two) times a day. 05/30/20 22 Active baclofen (LIORESAL) 10 mg tablet Take 1 Tablet by mouth 2 times daily as needed for Other (muscle spasm, may cause sedation). 05/30/20 Active naratriptan (AMERGE) 2.5 mg tablet Take 2.5 mg by mouth as needed. 2.5 mg at onset of headache, may repeat in 4 hours if needed Active acetaminophen (TYLENOL) 325 mg tablet TAKE 2 TABLETS BY MOUTH EVERY 6 HOURS NEEDED FOR FEVER/MILD PAIN SCALE 1 3 07/20/20 Active polyethylene glycol (PEG) 17 gram/dose oral powder Sig: DISSOLVE 17 GRAMS INTO WATER AND DRINK BY MOUTH EVERY DAY Sent to pharmacy as: Polyethylene Glycol 3350 17 GM/SCOOP Oral Powder (GLYCOLAX) Active ascorbic acid (VITAMIN C) 500 mg tablet Take 1 tablet (500 mg total) by mouth 2 (two) times a day. 60 each 2 09/22/20 24 025 Active pantoprazole (PROTONIX) 40 mg EC tablet Take 1 tablet (40 mg total) by mouth 2 (two) times a day. Take on empty stomach, wait 30 mins and then eat to activate the medication- before breakfast and supper 60 each 11 09/27/20 24 Active sucralfate (CARAFATE) 100 mg/mL suspension Take 10 mL (1 g total) by mouth 4 (four) times a day (with meals and nightly). Take 1 hour before meals and at bedtime 1200 mL 09/27/20 Active ondansetron (ZOFRAN) 8 mg tablet Take 1 tablet (8 mg total) by mouth 3 (three) times a day. 60 tablet 6 09/27/20 24 Active nutritional drink (Ensure) liquidIndicati ons:Complex regional pain syndrome type 1, affecting unspecified site,Weight loss,BMI less than 19,adult 1 bottle twice daily for weight loss / [place] Flavored 60 each 09/29/20 24 Active lidocaine (XYLOCAINE) 5 % ointment Apply topically 2 (two) times a day. 35.44 g 11/09/19 25 Active lidocaine (XYLOCAINE) 5 % ointment Apply 1 Applicator topically as needed (joint pain) for up to 360 days. 05/17/20 24 025 Discontinued(Re order) aluminum-magne sium hydroxide-ellyn thicone (MAALOX) 200-200-20 mg/5 mL suspension Take 15 mL by mouth 4 times daily (before meals and nightly). 02/08/20 23 025 Discontinued aluminum-magne sium hydroxide-ellyn thicone (Antacid-Antig as) 200-200-20 mg/5 mL suspension Take 15 mL by mouth 4 (four) times a day (before meals and nightly) for 7 days. 420 mL 11/05/19 25 025 Active Problems Problem Noted Date Diagnosed Date Complex regional pain syndrome type 1 08/12/2024 Vitamin D deficiency 01/21/2024 Seasonal allergies 05/30/2022 Anxiety and depression 10/22/2021 Cervical paraspinous muscle spasm 10/22/2021 Fibromyalgia 11/17/2020 Migraine 07/03/2018 Overview (08/12/2024): Seen at [facility], initial visit 09/26/2020. Nerve blocks and trigger point injections done 10/04/2020 and 01/04/2021. Acne vulgaris 08/21/2016 Asthma 01/09/2012 Encounters Date Type Department Care Team Description 11/19/2024 Telephone Internal Medicine - [place] [address] [place] [address] Ho Araya MD PT1 (Piero Encarnacion @ [facility]-Rheumatology ) 11/19/2024 Telephone Internal Medicine - [address] [phone] Ho Araya MD Letter for School/Work 11/15/2024 12:57 PM EST - 11/15/2024 11:59 PM EST Hospital Encounter [facility] Ultrasound [address] [place] [address] Cervicalgia Discharge Disposition: Home or Self Care 11/09/2024 Telephone Internal Medicine - [facility] [address] [place], [place] [address] [phone] Ho Araya MD faxed refill 11/08/2024 Telephone Gastroenterology - [place] [facility] [address] [facility] [address] [place] [phone] Christos Blackwell PA 10/29/2024 11:11 AM EST - 10/29/2024 11:59 PM EST Hospital Encounter [facility] CT Scan [address] [place] [phone] Decreased appetite; Epigastric pain; Nausea; Irritable bowel syndrome, unspecified type Discharge Disposition: Home or Self Care 10/13/[address] [facility] Hematology Oncology [address] [place] [phone] Clotilde Lux DO Referral 10/12/2024 10:30 AM EST Office Visit [facility] Hematology Oncology [address] [place] [phone] Clotilde Lux DO Leukopenia, unspecified type (Primary Dx); Bruising 10/11/2024 Telephone Internal Medicine - [facility] [address] [place] [phone] Ho Araya MD Abdominal Pain 09/27/2024 10:40 AM EST Office Visit Gastroenterology [facility] 175 [facility] [address] [place] [phone] Christos Blackwell PA Decreased appetite (Primary Dx); Epigastric pain; Nausea; Irritable bowel syndrome, unspecified type 09/27/2024 Telephone Gastroenterology - [place] [facility] 175 [facility] 200 [place] [phone] Christos Blackwell PA 09/27/2024 Telephone [facility] - [facility] [address] [place] [address] Ho Araya MD Fitting for DME (DME / [employer]) 09/24/2024 Lab Requisition [facility] - Main Lab [address] [facility] [place] [address] Sergio Gross PA Other microscopic hematuria 09/22/2024 9:15 AM EST Office Visit Orthopedic Surgery [facility] 250 175 [facility] 250 [place] [address] Diaz Galeana DPM Fibromyalgia (Primary Dx); Complex regional pain syndrome type 1, affecting unspecified site 09/20/2024 Telephone Internal Medicine - [facility] [address] [place] [address] Ho Araya MD DME Request ( [employer] (boost)) 09/17/2024 Telephone [facility] - [facility] [phone] Ho Araya MD Fitting for DME 09/14/2024 [place] [facility] - [address] [phone] Ho Araya MD DME REQUEST 09/13/2024 10:45 AM EST Office Visit [facility] - [facility] [address] [place] [address] Zhen Dumont PA Complex regional pain syndrome type 1, affecting unspecified site (Primary Dx); Tachycardia; Dysuria; Burning sensation of female pelvis 09/13/2024 [facility] [address] [place] [address] Meggan Mcbride [place] Request For Order(s) 09/13/2024 Telephone [facility] - [facility] [address] [place] [address] Zhen Dumont PA Director Informatics Feedback 09/10/2024 Telephone [facility] Medicine - [facility] [address] [place] [address] Ho Araya MD UTI; Back Pain from Last 3 Months Immunizations Name Administration Dates Next Due Influenza Quadravalent, MDCK , 0.5ml, preservative free (Flucelvax) 6mo and older 10/22/2021 Influenza trivalent, with pr eservative (Fluzone; Afluria) 6mo and older 08/21/2016 Surgical History Surgery Date Site/Laterality Comments BREAST SURGERY PROCEDURE:TRANSUMBILICAL AUGMENTATION MAMMAPLASTY OVARIAN CYST REMOVAL PROCEDURE:OVARIAN CYST REMOVAL OVARIAN CYST REMOVAL N/A PROCEDURE: SC OVARIAN CYSTECTOMY UNI/BI BREAST SURGERY PROCEDURE: SC BREAST AUGMENTATION WITH IMPLANT Medical History Medical History Date Comments Asthma DX:Asthma Migraines 07/03/2018 DX:Migraines; CO MMENT: Seen at [facility], initial visit 09/26/2020. Nerve blocks and trigger point injections done 10/04/2020 and 01/04/2021. Fibromyalgia 11/17/2020 DX:Fibromyalgia Acne vulgaris 08/21/2016 DX:Acne vulgaris IBS (irritable bowel syndrome) D X:IBS (irritable bowel syndrome) Fibromyalgia DX:Fibromyalgia Change in bowel habit DX:Change in bowel habit Migraine DX:Migraine GERD (gastroesophageal reflux disease) DX:GERD (gastroesophageal reflux disease) Constipation DX:Constipation Rectal bleeding DX:Rectal bleedi ng Family History Medical History Relation Name Comments Other: fibromyalgia Father Arthriti s, Headaches Leukemia Father's Sister No Known Problems Maternal Grandfather Arthritis Maternal Grandmother Migrain es, CTS, DMII Migraines Mother Pancreatic cancer Mother's Brother Diabetes Paternal Grandfather No Known Problems Paternal Grandmother Relation Name Status Comments Father Alive Father's Sister Maternal Grandfather Alive Maternal Grandmother Alive Mother Alive Mother's Brother Paternal Grandfather Alive Paternal Grandmother Alive Social History Tobacco Use Types Packs/Day Years Used Date Smoking Tobacco: Never Smokeless Tobacco: Never Tobacco Cessation:Counseling Given: Not Answered Alcohol Use Standard Drinks/Week Comments No 0 (1 standard drink = 0.6 oz pur e alcohol) Sex and Gender Information Value Date Recorded Sex Assigned at Not on file Gender Identity Not on file Sexual Orientation Not on file Job Start Date Occupation Industry Not on file Not on file Not on file Obstetrics History Last Filed Vital Signs Vital Sign Reading Time Taken Comments Blood Pressure 105/70 10/12/2024 10:49 AM EST Pulse 81 10/12/2024 10:49 AM EST Temperature 36.7 ??C (98 ??F) 10/12/2024 10:49 AM EST Respiratory Rate 16 09/13/2024 10:50 AM EST Oxygen Saturation 100% 10/12/2024 10:49 AM EST Inhaled Oxygen Concentration - - Weight 52.6 kg (116 lb) 10/12/2024 10:49 AM EST Height 167.6 cm (5' 5.98 ) 10/12/2024 10:[address] Body Mass Index 18.73 10/12/2024 10:49 AM EST Plan of Treatment Upcoming Encounters Date Type Department Care Team (Late st Contact Info) Description 12/01/2024 3:30 PM EST Office Visit Orthopedic Surgery - [place] [address] [phone] Diaz Galeana, DPM [address] [address] 05/02/2025 10:30 AM EDT Office Visit [facility] Hematology Oncology [address] [place] [phone] Clotilde Lux DO [address] [place] [address] Health Maintenance Due Date Last Done Comments Pneumococcal Vaccine: Pediatrics (0 to 5 Years) and At-Risk Patients (6 to 64 Years) (1 of 2 - PCV) 1998 Hepatitis B Vaccines (1 of 3 - 19+ 3-dose series) 2011 Cervical Cancer Screening: Pap Smear 2013 HIV Screening 10/05/2022 Social Influencers of Health Screening 10/05/2022 COVID-19 Vaccine ( season) 2024 Influenza Vaccine (#1) 2024 , 08/28/2020, 08/02/2019, Additional history exists Depression Screening 05/12/2025 05/12/2024 Cholesterol Screening (Lipid Panel) 05/12/2029 05/12/2024, 05/12/2024 DTaP,Tdap,and Td Vaccines (4 - Td or Tdap) 08/23/2029 08/23/2019, 08/11/2014, 03/23/2004 Varicella Vaccines Aged Out 09/03/2007 No longer eligible based on patient's age to complete this topic Meningococcal ACWY Vaccine Aged Out 01/20/2008 N o longer eligible based on patient's age to complete this topic HPV Vaccines Completed 08/11/2008, 01/01, 09/03/2007 Hepatitis C Screening Completed 11/17/2020 HIB Vaccines Aged Out No longer eligi ble based on patient's age to complete this topic Hepatitis A Vaccines Aged Out No long er eligible based on patient's age to complete this topic IPV Vaccines Aged Out No longer eligi ble based on patient's age to complete this topic MMR Vaccines Aged Out No longer eligi ble based on patient's age to complete this topic RSV Immunization Patients Under 20 months Aged Out No longer eligible based on patient's age to complete this topic Procedures Procedure Name Priority Date/Time Associated Diagnosis Comments US HEAD NECK SOFT TISSUE Routine 11/15/2024 1:[address] ABDOMEN PELVIS W CONTRAST Routine 10/29/2024 11:35 AM EST Decreased appetite Epigastric pain Nausea Irritable bowel syndrome, unspecified type CBC WITH AUTO DIFFERENTIAL Routine 10/11/2024 1:49 PM EST Leukopenia, unspecified type SEDIMENTATION RATE Routine 10/11/2024 1: 49 PM EST Leukopenia, unspecified type RHEUMATOID FACTOR Routine 10/11/2024 1:4 9 PM EST Leukopenia, unspecified type MARIE IFA WITH TITER AND PATTERN Routine 10/11/2024 1:49 PM EST Leukopenia, unspecified type CBC AND DIFFERENTIAL Routine 10/11/2024 1:49 PM EST Leukopenia, unspecified type AP OUTSIDE CONSULT Routine 09/21/2024 12 :00 AM EST Other microscopic hematuria DANIELS URINE CULTURE TUBE Routine 09/13/2024 11:37 AM EST Dysuria URINALYSIS WITH REFLEX MICROSCOPIC AND CULTURE Routine 09/13/2024 11:37 AM EST Dysuria CBC WITH AUTO DIFFERENTIAL Routine 09/13/2024 11:37 AM EST Tachycardia URINALYSIS WITH REFLEX MICROSCOPIC AND CULTURE Routine 09/13/2024 11:37 AM EST Dysuria CBC AND DIFFERENTIAL Routine 09/13/2024 11:37 AM EST Tachycardia THYROID STIMULATING HORMONE WITH REFLEX TO FREE T4 AND FREE T3 Routine 09/13/2024 11:37 AM EST Tachycardia HM DEPRESSION SCREENING Routine 05/12/2024 LIPID PANEL Routine 05/12/2024 HM HEPATITIS C SCREENING Routine 11/17/2020 from Last 3 Months or Most Recently Relevant to Health Maintenance Results * US Head Neck Soft Tissue [...] Signed Date: 11/23/2024 08:29 ET Workstation ID: [id number] Transcribed By: Self Edit Transcribed Date: 11/23/2024 [...] Signed Date: 11/23/2024 08:29 ET Workstation ID: [id number] Transcribed By: Self Edit Transcribed Date: 11/23/2024 08:27 ET Piero SHIRLEY IMG US PROCEDURES * CT Abdomen Pelvis w Contrast (10/29/2024 11:35 AM EST) Anatomical Region Laterality Modality Body Computed Tomogra phy 11/01/2024 4:12 PM EST Impressions 11/01/2024 4:20 PM EST Impression: 1. 3 mm nonobstructing left renal calculus, unchanged. 2. Trace free fluid in the pelvis, most likely physiologic in a patient of this age. 3. IUD well-positioned. Telejacki SHIRLEY ([id number]) -------- FINAL REPORT -------- Dictated By: Patrica Ramirez Dictated Date: 11/01/2024 16:12 ET Assigned Physician: Patrica Ramirez Reviewed and Electronically Signed By: Patrica Ramirez Signed Date: 11/01/2024 16:20 ET Workstation ID: [id number] Transcribed By: Self Edit Transcribed Date: 11/01/2024 16:12 ET Narrative 11/01/2024 4:20 PM EST History: Epigastric pain. Early satiety. Comparison: 01/22/24 Technique: Helical volumetric imaging of the abdomen and pelvis was performed following oral contrast and during the uneventful intravenous administration of 90 cc Isovue-370. DLP: 379.35 mGy/cm DNS:[email or web address] VCT Iterative reconstruction technique Findings: Bilateral augmentation mammoplasty sequelae are partially imaged. Trace bilateral pleural effusions are noted, unchanged. The liver is normal in size and configuration. A 5 mm circumscribed round hypoattenuating lesion in the right lobe is without significant change, too small to accurately characterize, most likely an incidental cyst. The portal and hepatic veins are patent. The gallbladder is physiologically distended. No evidence of biliary obstruction is seen. The spleen, pancreas and adrenal glands are unremarkable. The kidneys are normal in position and size, with symmetric, intact nephrograms. No hydronephrosis is seen. There is a 3 mm nonobstructing calculus in the interpolar aspect of the left kidney. The perinephric fat is preserved. The abdominal aorta and IVC are unremarkable. There is a trace amount of free fluid in the dependent portion of the pelvis, nonspecific in a patient of this age. An IUD is well-positioned. The adnexa appear grossly unremarkable for age. The urinary bladder is normal. No evidence of bowel obstruction is seen; enteric contrast given for the study has reached the sigmoid colon. The appendix is normal in caliber in the right lower quadrant, containing air and enteric contrast. No abnormal perienteric or pericolonic fat stranding is seen. The regional skeleton is intact. Procedure Note Patrica Ramirez MD - 11/01/2024 History: Epigastric pain. Early satiety. Comparison: 01/22/24 Technique: Helical volumetric imaging of the abdomen and pelvis wasperformed following oral contrast and during the uneventful intravenousadministration of 90 cc Isovue-370. DLP: 379.35 mGy/cm Nuzzel VCT Iterative reconstruction technique Findings: Bilateral augmentation mammoplasty sequelae are partially imaged. Tracebilateral pleural effusions are noted, unchanged. The liver is normal in size and configuration. A 5 mm circumscribed roundhypoattenuating lesion in the right lobe is without significant change,too small to accurately characterize, most likely an incidental cyst. Theportal and hepatic veins are patent. The gallbladder is physiologicallydistended. No evidence of biliary obstruction is seen. The spleen, pancreas and adrenal glands are unremarkable. The kidneys are normal in position and size, with symmetric, intactnephrograms. No hydronephrosis is seen. There is a 3 mm nonobstructingcalculus in the interpolar aspect of the left kidney. The perinephric fatis preserved. The abdominal aorta and IVC are unremarkable. There is a trace amount offree fluid in the dependent portion of the pelvis, nonspecific in apatient of this age. An IUD is well-positioned. The adnexa appear grosslyunremarkable for age. The urinary bladder is normal. No evidence of bowel obstruction is seen; enteric contrast given for thestudy has reached the sigmoid colon. The appendix is normal in caliber inthe right lower quadrant, containing air and enteric contrast. No abnormalperienteric or pericolonic fat stranding is seen. The regional skeleton is intact. IMPRESSION: Impression: 1. 3 mm nonobstructing left renal calculus, unchanged. 2. Trace free fluid in the pelvis, most likely physiologic in a patient ofthis age. 3. IUD well-positioned. Pattie SHIRLEY ([id number]) -------- FINAL REPORT -------- Dictated By: Patrica Ramirez Dictated Date: 11/01/2024 16:12 ET Assigned Physician: Patrica Ramirez Reviewed and Electronically Signed By: Patrica Ramirez Signed Date: 11/01/2024 16:20 ET Workstation ID: [id number] Transcribed By: Self Edit Transcribed Date: 11/01/2024 16:12 ET Christos SHIRLEY IMG CT PROCEDURES * MARIE IFA with titer and pattern (10/11/2024 1:49 PM EST) Pathologist [facility] MARIE Negative Negative 10/13/2024 2:16 PM EST [facility] Blood Venous blood specimen / Unknown Venipuncture / Unknown 10/11/2024 1:49 PM EST 10/11/2024 4:46 PM EST Clotilde Lux DO LAB BLOOD ORD ERABLES [facility] [address] [place] [address], * (ABNORMAL) CBC auto differential (10/11/2024 1:49 PM EST) Only the most recent of2 resultswithin the time period is included. Pathologist [facility] WBC 9.4 4.8 - 10.8 K/mcL LAB HEMETOLOGY METHOD 10/11/2024 5:15 PM EST [facility] RBC 4.40 3.80 - 4.80 M/mcL LAB HEMETOLOGY METHOD 10/11/2024 5:15 PM EST [facility] Hemoglobin 13.2 11.5 - 16.0 g/dL LAB HEMETOLOGY METHOD 10/11/2024 5:15 PM [facility] Hematocrit 42.3 35.0 - 47.0 % LAB HEMETOLOGY METHOD 10/11/2024 5:15 PM [facility] MCV 97.0 79.0 - 98.0 FL LAB HEMETOLOGY METHOD 10/11/2024 5:15 PM [facility] MCH 30.3 27.0 - 32.0 pcg LAB HEMETOLOGY METHOD 10/11/2024 5:15 PM [facility] MCHC 31.2(L) 32.0 - 37.0 g/dL LAB HEMETOLOGY METHOD 10/11/2024 5:15 PM [facility] RDW 13.0 11.0 - 15.0 % LAB HEMETOLOGY METHOD 10/11/2024 5:15 PM [facility] Platelets 275 130 - 400 K/mcL LAB HEMETOLOGY METHOD 10/11/2024 5:15 PM [facility] MPV 10.6 7.0 - 11.0 FL LAB HEMETOLOGY METHOD 10/11/2024 5:15 PM [facility] NRBC 0.0 <1.0 % LAB HEMETOLOGY METHOD 10/11/2024 5:15 PM [facility] NRBC Absolute 0.00 <0.10 K/mcL LAB HEMETOLOGY METHOD 10/11/2024 5:15 PM [facility] Neutrophils Relative 79.5 % LAB HEMETOLOGY METHOD 10/11/2024 5:15 PM [facility] Lymphocytes Relative 13.3 % LAB HEMETOLOGY METHOD 10/11/2024 5:15 PM [facility] Monocytes Relative 6.1 % LAB HEMETOLOGY METHOD 10/11/2024 5:15 PM [facility] Eosinophils Relative 0.3 % LAB HEMETOLOGY METHOD 10/11/2024 5:15 PM EST [facility] Basophils Relative 0.3 % LAB HEMETOLOGY METHOD 10/11/2024 5:15 PM EST [facility] Immature Granulocytes Relative 0.5 % LAB HEMETOLOGY METHOD 10/11/2024 5:15 PM EST [facility] Neutrophils Absolute 7.47(H) 1.50 - 7.00 K/mcL LAB HEMETOLOGY METHOD 10/11/2024 5:15 PM EST [facility] Lymphocytes Absolute 1.25 1.00 - 5.00 K/mcL LAB HEMETOLOGY METHOD 10/11/2024 5:15 PM EST [facility] Monocytes Absolute 0.57 0.20 - 1.00 K/mcL LAB HEMETOLOGY METHOD 10/11/2024 5:15 PM EST [facility] Eosinophils Absolute 0.03 0.00 - 0.50 K/mcL LAB HEMETOLOGY METHOD 10/11/2024 5:15 PM EST [facility] Basophils Absolute 0.03 0.00 - 0.20 K/mcL LAB HEMETOLOGY METHOD 10/11/2024 5:15 PM EST [facility] Immature Granulocytes Absolute 0.05(H) 0.00 - 0.03 K/mcL LAB HEMETOLOGY METHOD 10/11/2024 5:15 PM EST [facility] Blood Venous blood specimen / Unknown Venipuncture / Unknown 10/11/2024 1:49 PM EST 10/11/2024 4:47 PM EST Clotilde Lux DO LAB BLOOD ORD ERABLES [facility] [address] [place] [address], * Sedimentation rate (10/11/2024 1:49 PM EST) Sed Rate 4 0 - 20 mm/hr LAB HEMETOLOGY METHOD 10/11/2024 5:34 PM EST [facility] Blood Venous blood specimen / Unknown Venipuncture / Unknown 10/11/2024 1:49 PM EST 10/11/2024 4:47 PM EST Clotilde Costellouliffe DO LAB BLOOD ORD ERABLES [facility] [facility] [address] [place] [address], * Rheumatoid factor (10/11/2024 1:49 PM EST) Rheumatoid Factor <10.0 <15.0 I Unit/mL LAB CHEMISTRY METHOD 10/11/2024 9:11 PM EST [facility] Blood Venous blood specimen / Unknown Venipuncture / Unknown 10/11/2024 1:49 PM EST 10/11/2024 4:46 PM EST Clotilde Costellouliffe DO LAB BLOOD ORD ERABLES [facility] [address] [place] [address], * Anatomic pathology outside consult (09/21/2024 12:00 AM EST) FISH Addendum Results of [employer] fluorescence in situ hybridization (FISH) testing: CEP3: Normal CEP7: Normal CEP17: Normal LSI 9p21: Normal Interpretation: Normal profile Controls stained appropriately. Note: The results are intended as a screening device and should be interpreted in association with other clinical and pathological findings. 10/12/2024 9:06 AM EST [facility] Addendum electronically signed by Gaetano Fernando MD on 10/12/2024 at 9:06 AM Final Diagnosis Urine, Voided: Negative for high grade urothelial carcinoma. Note: [employer] testing to follow. 10/12/2024 9:06 AM EST [facility] Clinical Information [id number], Urine cyto/urine FISH. 10/12/2024 9:06 AM [facility] Gross Description A. Urine, Voided, : [id number] recd 1 TP cyto 1 TP fish. 10/12/2024 9:06 AM [facility] Disclaimer Unless otherwise specified, all tissue is 10% NB formalin fixed and paraffin embedded. 10/12/2024 9:06 AM [facility] Tissue Urine specimen from urethra / Unknown 09/21/2024 09/24/2024 1:47 PM EST Sergio SHIRLEY LAB PATHOLOGY ORDERA BLES [facility] [address] [place] [address], * (ABNORMAL) Urinalysis with reflex microscopic and culture (09/13/2024 11:37 AM EST) Specific [place] Urine 1.021 1.003 - 1.030 LAB URINALYSIS - AUTOMATED METHOD 09/13/2024 2:30 PM [facility] pH, Urine >=9.0(A) 5.0 - 8.0 pH LAB URINALYSIS - AUTOMATED METHOD 09/13/2024 2:30 PM [facility] Leukocytes, Urine Negative Negative LAB URINALYSIS - AUTOMATED METHOD 09/13/2024 2:30 PM [facility] Nitrite, Urine Negative Negative LAB URINALYSIS - AUTOMATED METHOD 09/13/2024 2:30 PM [facility] Protein, Urine 30(A) <=Trace mg/dL LAB URINALYSIS - AUTOMATED METHOD 09/13/2024 2:30 PM [facility] Glucose, Urine Negative Negative mg/dL LAB URINALYSIS - AUTOMATED METHOD 09/13/2024 2:30 PM [facility] Ketones, Urine Negative Negative mg/dL LAB URINALYSIS - AUTOMATED METHOD 09/13/2024 2:30 PM [facility] Urobilinogen, Urine 1.0 0.2 - 1.0 mg/dL LAB URINALYSIS - AUTOMATED METHOD 09/13/2024 2:30 PM [facility] Bilirubin, Urine Negative Negative LAB URINALYSIS - AUTOMATED METHOD 09/13/2024 2:30 PM [facility] Blood, Urine Negative Negative LAB URINALYSIS - AUTOMATED METHOD 09/13/2024 2:30 PM [facility] RBC, Urine 4.0 0 - 4 /HPF LAB URINALYSIS - AUTOMATED METHOD 09/13/2024 2:30 PM [facility] WBC, Urine 1.9 0 - 4 /HPF LAB URINALYSIS - AUTOMATED METHOD 09/13/2024 2:30 PM [facility] Squamous Epithelial, Urine 56 0 - 60 /LPF LAB URINALYSIS - AUTOMATED METHOD 09/13/2024 2:30 PM [facility] Bacteria, Urine Few(A) Negative /HPF LAB URINALYSIS - AUTOMATED METHOD 09/13/2024 2:30 PM [facility] Hyaline Casts, Urine 2.0 0 - 3 /LPF LAB URINALYSIS - AUTOMATED METHOD 09/13/2024 2:30 PM [facility] Urine Urine specimen obtained by clean catch procedure / Unknown Non-blood Collection / Unknown 09/13/2024 11:37 AM EST 09/13/2024 11:37 AM EST Zhen SHIRLEY LAB URINE ORDER QI [facility] [address] [place] [address], * Daniels urine culture tube (09/13/2024 11:37 AM EST) Pathologist [facility] Extra Tube Hold for add-ons. 09/13/2024 3:01 PM EST [facility] Comment:Auto resulted. Urine Urine specimen obtained by clean catch procedure / Unknown Non-blood Collection / Unknown 09/13/2024 11:37 AM EST 09/13/2024 11:37 AM EST Zhen SHIRLEY LAB URINE ORDER QI [facility] [address] [place] [address], [place] [phone] * Thyroid stimulating hormone with reflex to free t4 and free t3 (09/13/2024 11:37 AM EST) [facility] TSH 0.61 0.40 - 4.00 mcIU/mL LAB CHEMISTRY METHOD 09/13/2024 4:26 PM EST [facility] Blood Venous blood specimen / Unknown Venipuncture / Unknown 09/13/2024 11:37 AM EST 09/13/2024 11:37 AM EST Zhen SHIRLEY LAB BLOOD ORDER QI [facility] [address] [place] [address], [place] [phone] * Depression Screening (05/12/2024) Pathologist [facility] Depression Screening abstracted Historical Provider [facility] E * Lipid panel (05/12/2024) Pathologist [facility] LDL/HDL Ratio 3 0 - 4 Triglycerides 56 0 - 150 mg/dL Cholesterol 173 0 - 200 mg/dL HDL 68 40 mg/dL LDL Cholesterol 94 0 - 100 mg/dL Blood Venous blood specimen / Unknown Historical Provider LAB BLOOD ORDERAB LES * Hepatitis C Screening (11/17/2020) Hepatitis C Screening abstracted Historical Provider MD HAKAN Mena from Last 3 Months or Most Recently Relevant to Health Maintenance Care Teams Laboratory Administrative Director Relationship Specialty Start Date End Date Ho Araya MD [address] [place] [address] [id number] PCP - General Internal Medicine 07/25/15
--- OUTSIDE RECORDS SUMMARY | 2024-11-30 08:11 | XMS_ITS | Continuity of Care Document ---
Author Organization [facility] Address [address] [place] [address]- Care Team Providers Care Canteen Operator Name Role Phone Quiana MENENDEZ, Ho Humphrey Primary Care Physician [phone] Encounter [facility] Date(s): 10/15/24 - 11/14/[address] [address]- Encounter Type: Triage Allergies, Adverse Reactions, Alerts Substance Criticality Severity [...] 0 Refills, Maintenance, :23:00 PM EST, Tablet, [id number], Partial fill upon patient request if the [...] Refills, Soft Stop, 08/06/24 12:19:00 PM EDT, [facility]/pharmacy #[id number], Partial fill upon patient request if [...] Confirmed Active IUD (intrauterine device) in place, Rinkuadair inserted 09/15/20 Confirmed Active Migraine without aura [...] Team Personnel Name: Verenice Ferrara RN Position: [facility] Nurse Member Role: Primary Care Nurse Name: Marilyn Luna RN Position: [facility] RN Member Role: Primary Care Nurse Name: Quiana MENENDEZ, Ho Humphrey Position: Reference Physician Member Role: PCP Address: [address] [place] [address] Telecom: Care Team Related Persons Name: MARLYN HOWARD Name: SIMON HOWARD Name: REHAN DIXON Name: EVY LAWTON Name: ANTWON NAVA Insurance Providers Guarantor name: JARRETT LAWTON Health Plan Information #: 1 Payer: [employer] Member Number: NA Policy Number: NA Group Number: NA
--- OUTSIDE RECORDS SUMMARY | 2024-11-30 08:11 | XMS_ITS | Data Portability ---
Author Organization [place] [facility], Allergy Address [address] [address] Care Team Providers Care Fleet Driver Name Role Phone MCKENZIEMARLYN PANCHAL Primary Care Provider Assessment Encounter Date Assessment Date Assessment LastModified by Organization Details LastModified Time 05/07/2024 05/07/2024 Physical examination is similar to previous with mild tympanosclerosis of left tympanic membrane with no sign of effusion. Her discomfort appears focused on her left cervical region. Many of her symptoms I believe are related to muscle spasm. There is no role of antibiotics or intervention on her tympanic membrane or middle ear as her symptoms are referred. Encouraged her to continue working with pain management. I used diagrams to explain middle ear anatomy [email or web address] Not available 05/07/2024 14:27:44 08/06/2024 08/06/2024 33-year-old fema le with CRPS and left TMJ presents for evaluation of her ears. Otologic exam demonstrated left TM covered with squamous cast, which was removed today. TMs are intact and well-aerated bilaterally. Audiogram suggests normal hearing with type A tympanometry bilaterally. We discussed that the squamous cast is likely the cause of her left ear popping and abnormal auditory perception. Reviewed possible differential for her left otalgia is squamous cast vs post-otitis externa pain vs TMJ vs CRPS. Recommend 3-5 drops of baby oil twice weekly to promote squamous cast softening and extrusion. Patient agrees to send a portal message if symptoms persist or worsen. [email or web address] Not available 08/06/2024 15:10:21 08/27/2024 08/27/2024 33-year-old fema le with CRPS (chronic region pain syndrome) and left TMJ presents for evaluation of her left ear. She reports increased pain over the past 3-4 days and concern for infection or fluid. TMs are intact and well-aerated bilaterally. She has type A tympanometry bilaterally. Reassurance was provided to the patient that she has no sign of infection or fluid today. We reviewed possible differential for her left otalgia may be TMJ vs CRPS. I have recommended that she follow up with her neurologist and pain management providers. I did order allergy testing at her request. [email or web address] Not available 08/30/2024 12:02:28 Plan of Treatment Reminders Order Date Submit Date Provider Last Modified By Organization Details Last Modified Time Details Appointments Test Results 15 2024 03:45P M MARY SCHREIBER PA-C Not available Not available Not available Lab None recorded. Referral None recorded. Procedures allergy testing, skin prick (PROC) 2023 024 [email or web address] Not available 09/27/2024 09:22:26 intraderm al allergy skin testing (PROC) 2023 024 [email or web address] Not available 09/27/2024 09:22:26 pulmonary function test procedure (PROC) 2023 024 [email or web address] Not available 09/27/2024 09:22:26 pulse oximetry (PROC) 2023 024 [email or web address] Not available 09/27/2024 09:22:26 Surgeries None recorded. Imaging None recorded. Medication Orders None recorded. Patient TargetsNo targets recorded. Patient InstructionsNo instructions recorded. Reason for Referral None Reported. Results Created Date Observation Date Name Description Value Unit Range Abnormal Flag Note LastModifiedBy Organization Detail LastModifiedTime 10/28/20 24 10/28/2024 ALLER GENS, ZONE 1 class description Commen t Level s of Speci fic IgE Class Descr iptio n of Class ----- ----- ----- ----- ----- -- ----- ----- ----- ----- ----- < 0.10 0 Negat philly 0.10 - 0.31 0/I Equiv ocal/ Low 0.32 - 0.55 I Low 0.56 - 1.40 II Moder ate 1.41 - 3.90 III High 3.91 - 19.00 IV Very High 19.01 - 100.0 0 V Very High >100. 00 Very High Not Available [facility] ([facility]) [address] [place], [address], 10/29/2024 23:16:49 10/28/20 24 10/29/2024 ALLER GENS, ZONE 1 N457-OlZ D pteronyssinu s 0.16 kU/L class 0/I abnormal Not Available [facility] ([facility]) [address] [place], [address], 10/29/2024 23:16:49 10/28/20 24 10/29/2024 ALLER GENS, ZONE 1 N919-TjQ D farinae 0.12 kU/L class 0/I abnormal Not Available [facility] ([facility]) [address] [place], [address], 10/29/2024 23:16:49 10/28/20 24 10/29/2024 ALLER GENS, ZONE 1 M788-UaI CAT dander 0.12 kU/L class 0/I abnormal Not Available [facility] ([facility]) [address] [place], [address], 10/29/2024 23:16:49 10/28/20 24 10/29/2024 ALLER GENS, ZONE 1 L503-KlC dog dander 5.14 kU/L class IV abnormal Not Available [facility] ([facility]) [address] [place], [address], 10/29/2024 23:16:49 10/28/20 24 10/29/2024 ALLER GENS, ZONE 1 x366-HgA bermuda grass <0.10 kU/L class 0 Not Available [facility] ([facility]) [address] [place], [address], 10/29/2024 23:16:49 10/28/20 24 10/29/2024 ALLER GENS, ZONE 1 b964-DlR bluegrass, [place] <0.10 kU/L class 0 Not Available [facility] ([facility]) [address] [place], [address], 10/29/2024 23:16:49 10/28/20 24 10/29/2024 ALLER GENS, ZONE 1 x812-AtZ bahia grass <0.10 kU/L class 0 Not Available [facility] ([facility]) [address] [place], [address], 10/29/2024 23:16:49 10/28/20 24 10/29/2024 ALLER GENS, ZONE 1 N713-KcP cockroach, citizen of [place] 0.10 kU/L class 0/I abnormal Not Available [facility] ([facility]) [address] [place], [address], 10/29/2024 23:16:49 10/28/20 24 10/29/2024 ALLER GENS, ZONE 1 C196-ShZ penicillium chrysogen <0.10 kU/L class 0 Not Available [facility] ([facility]) [address] [place], [address], 10/29/2024 23:16:49 10/28/20 24 10/29/2024 ALLER GENS, ZONE 1 D948-CdC cladosporium herbarum <0.10 kU/L class 0 Not Available [facility] ([facility]) [address] [place], [address], 10/29/2024 23:16:49 10/28/20 24 10/29/2024 ALLER GENS, ZONE 1 V488-XnC aspergillus fumigatus <0.10 kU/L class 0 Not Available [facility] ([facility]) [address] [place], [address], 10/29/2024 23:16:49 10/28/20 24 10/29/2024 ALLER GENS, ZONE 1 J857-ZpF mucor racemosus <0.10 kU/L class 0 Not Available [facility] ([facility]) [address] [facility] [place], [address], 10/29/2024 23:16:49 10/28/20 24 10/29/2024 ALLER GENS, ZONE 1 T977-HaX alternaria alternata <0.10 kU/L class 0 Not Available [facility] ([facility]) [address] [facility] [place], [address], 10/29/2024 23:16:49 10/28/20 24 10/29/2024 ALLER GENS, ZONE 1 W774-CcV stemphylium herbarum <0.10 kU/L class 0 Not Available [facility] ([facility]) [address] [facility] [place], [address], 10/29/2024 23:16:49 10/28/20 24 10/29/2024 ALLER GENS, ZONE 1 X887-GnA common silver birch 3.39 kU/L class III abnormal Not Available [facility] ([facility]) [address] [facility] [place], [address], 10/29/2024 23:16:49 10/28/20 24 10/29/2024 ALLER GENS, ZONE 1 Z801-NoF oak, white 10.60 kU/L class IV abnormal Not Available [facility] ([facility]) [address] [place], [address], 10/29/2024 23:16:49 10/28/20 24 10/29/2024 ALLER GENS, ZONE 1 H649-SgO elm, citizen [place] <0.10 kU/L class 0 Not Available [facility] ([facility]) [address] [facility] [place], [address], 10/29/2024 23:16:49 10/28/20 24 10/29/2024 ALLER GENS, ZONE 1 E658-CmI samira, white <0.10 kU/L class 0 Not Available [facility] ([facility]) [address] [facility], [place], [address], 10/29/2024 23:16:49 10/28/20 24 10/29/2024 ALLER GENS, ZONE 1 A103-HcU maple/box elder 0.23 kU/L class 0/I abnormal Not Available [facility] ([facility]) [address] [facility], [place], [address], 10/29/2024 23:16:49 10/28/20 24 10/29/2024 ALLER GENS, ZONE 1 Y808-TyD hazelnut tree 1.25 kU/L class II abnormal Not Available [facility] ([facility]) [address] [facility], [place], [address], 10/29/2024 23:16:49 10/28/20 24 10/29/2024 ALLER GENS, ZONE 1 H431-RmN hickory, white 0.13 kU/L class 0/I abnormal Not Available [facility] ([facility]) [address] [facility], [place], [address], 10/29/2024 23:16:49 10/28/20 24 10/29/2024 ALLER GENS, ZONE 1 Y415-YgQ white mulberry <0.10 kU/L class 0 Not Available [facility] ([facility]) [address] [facility], [place], [address], 10/29/2024 23:16:49 10/28/20 24 10/29/2024 ALLER GENS, ZONE 1 V665-LwT cedar, mountain <0.10 kU/L class 0 Not Available [facility] ([facility]) [address] [facility], [place], [address], 10/29/2024 23:16:49 10/28/20 24 10/29/2024 ALLER GENS, ZONE 1 F834-LpQ ragweed, short <0.10 kU/L class 0 Not Available [facility] ([facility]) [address] [facility], [place], [address], 10/29/2024 23:16:49 10/28/20 24 10/29/2024 ALLER GENS, ZONE 1 B383-GvR mugwort <0.10 kU/L class 0 Not Available [facility] ([facility]) [address] [facility], [place], [address], 10/29/2024 23:16:49 10/28/20 24 10/29/2024 ALLER GENS, ZONE 1 V145-GmS plantain, kisw[place] <0.10 kU/L class 0 Not Available [facility] ([facility]) [address] [facility], [place], [address], 10/29/2024 23:16:49 10/28/20 24 10/29/2024 ALLER GENS, ZONE 1 S166-JyO pigweed, common <0.10 kU/L class 0 Not Available [facility] ([facility]) [address] [facility], [place], [address], 10/29/2024 23:16:49 10/28/20 24 10/29/2024 ALLER GENS, ZONE 1 H329-GnF sheep sorrel <0.10 kU/L class 0 Not Available [facility] ([facility]) [address] [facility], [place], [address], 10/29/2024 23:16:49 10/28/20 24 10/29/2024 ALLER GENS, ZONE 1 W050-BmD nettle <0.10 kU/L class 0 Not Available [facility] ([facility]) [address] [facility], [place], [address], 10/29/2024 23:16:49 10/28/20 24 10/29/2024 FOOD ALLER GY PROFI LE W609-InY egg white 0.21 kU/L class 0/I abnormal Not Available [facility] ([facility]) [address] [place], [address], 10/29/2024 23:16:50 10/28/20 24 10/29/2024 FOOD ALLER GY PROFI LE B795-OiT peanut <0.10 kU/L class 0 Not Available [facility] ([facility]) [address] [place], [address], 10/29/2024 23:16:50 10/28/20 24 10/29/2024 FOOD ALLER GY PROFI LE T175-KbG soybean <0.10 kU/L class 0 Not Available [facility] ([facility]) [address] [place], [address], 10/29/2024 23:16:50 10/28/20 24 10/29/2024 FOOD ALLER GY PROFI LE N108-NzM milk 0.66 kU/L class II abnormal Not Available [facility] ([facility]) [address] [place], [address], 10/29/2024 23:16:50 10/28/20 24 10/29/2024 FOOD ALLER GY PROFI LE C838-UuS clam <0.10 kU/L class 0 Not Available [facility] ([facility]) [address] [place], [address], 10/29/2024 23:16:50 10/28/20 24 10/29/2024 FOOD ALLER GY PROFI LE C869-JfA shrimp 0.10 kU/L class 0/I abnormal Not Available [facility] ([facility]) [address] [place], [address], 10/29/2024 23:16:50 10/28/20 24 10/29/2024 FOOD ALLER GY PROFI LE L327-LeU walnut <0.10 kU/L class 0 Not Available [facility] ([facility]) [address] [place], [address], 10/29/2024 23:16:50 10/28/20 24 10/29/2024 FOOD ALLER GY PROFI LE F257-ChP codfish <0.10 kU/L class 0 Not Available [facility] ([facility]) [address] [place], [address], 10/29/2024 23:16:50 10/28/20 24 10/29/2024 FOOD ALLER GY PROFI LE G493-CnA scallop <0.10 kU/L class 0 Not Available [facility] ([facility]) [address] [facility], [place], [address], 10/29/2024 23:16:50 10/28/20 24 10/29/2024 FOOD ALLER GY PROFI LE R626-DdS wheat <0.10 kU/L class 0 Not Available [facility] ([facility]) [address] [facility], [place], [address], 10/29/2024 23:16:50 10/28/20 24 10/29/2024 FOOD ALLER GY PROFI LE I101-KeF corn <0.10 kU/L class 0 Not Available [facility] ([facility]) [address] [place], [address], 10/29/2024 23:16:50 10/28/20 24 10/29/2024 FOOD ALLER GY PROFI LE O352-PzY sesame seed <0.10 kU/L class 0 Not Available [facility] ([facility]) [address] [place], [address], 10/29/2024 23:16:50 10/28/20 24 10/29/2024 IMMUN OGLOB ULIN E, TOTAL immunoglobul in E, total 81 IU/mL 6-495 Not Available [facility] ([facility]) [address] [place], [address], 10/29/2024 23:16:50 06/23/20 24 03/18/2024 imagi ng/di agnos tic resul t No observ ation record ed. [email or web address] Not Available 21:06:53 08/06/20 24 audio gram No observ ation record ed. [email or web address] Not Available 2023 15:00:15 08/27/20 24 audio gram No observ ation record ed. [email or web address] Not Available 08/04 11:42:10 Result Notes None recorded. Problems Name Problem SNOMED Code Status Onset Date Resolution Date Notes Provider Name and Address Organization Details Recorded Time Chronic pharyngit is 832862 Active 2016 Chronic sore throat; Note: Date Diagnosed : 11/08/2016 2:47 PM (J31.2) Not Available [facility] 4 02:30:50 Gastroeso phageal reflux disease without esophagit is 444816453 Active 2016 Gastro-es ophageal reflux disease without esophagit is; Note: Date Diagnosed : 11/08/2016 2:47 PM (K21.9) Not Available [facility] 4 02:30:44 Mass of neck 640943728 Active 2014 Localized swelling, mass and lump, neck; Note: Date Diagnosed : 5 5:39 AM (R22.1) Not Available [facility] 4 02:30:45 Neck swelling 679502547 Active 2014 Localized swelling, mass and lump, neck; Note: Date Diagnosed : 5 5:39 AM (R22.1) Not Available [facility] 4 02:30:45 Lesion of oral mucosa 86548723669 98567 Active 2016 Other lesions of oral mucosa; Note: Date Diagnosed : 11/08/2016 2:53 PM (K13.79) Not Available [facility] 4 02:31:01 Tinnitus of left ear 56881137124 06 Active 2023 LAVONNE RODRIGUEZ MD [address] [place] [address], [place], [address] , [facility] 4 11:32:24 Migraine 60092171 Active 2023 LAVONNE RODRIGUEZ MD [address], [place], [address] , [place] [facility] 4 11:32:34 Pharyngea l dysphagia 57220088461 105 Active 2023 LAVONNE RODRIGUEZ MD [address] [facility], [place], [place], [address] , [place] [facility] 4 11:32:47 Abnormal auditory perceptio n 58495988 Active 2023 LAVONNE RODRIGUEZ MD [address], [place], [place], [address] , [place] [facility] 4 11:33:02 Abnormal auditory perceptio n 75868624 Active 2023 LION HEREDIA MD [address] [facility] [place], [place], [address] , [place] [facility] 4 14:26:32 Neck pain 66389299 Active 2023 LION HEREDIA MD [address] [facility] [place], [place], [place], [address] , [place] [facility] 4 14:26:40 Pain of left temporoma ndibular joint 43014937428 482808 Active 2023 LION HEREDIA MD [address] [facility] [address], [place], [place], [address] , [place] [facility] 4 14:26:28 Posterior rhinorrhe a 02247259 Active 2023 MARY SCHREIBER PA-C [address], [place], [place], [address] , [place] [facility] 4 10:48:17 Allergic rhinitis 60431251 Active 2023 MARY SCHREIBER PA-C [address], [place], [address] , [place] [facility] 4 10:48:34 Perennial allergic rhinitis 966425782 Active 2023 PATIENCE HUIZAR, RMA [address] [facility] [place] [address], [place], [address] , [facility] 08:39:44 Problem Notes None recorded. Procedures Surgical History Date Name Laterality Status Provider Name and Address Organization Details Recorded Time 08/27/20 24 Tympanometry (47216) completed Melodie GANN [address] [facility],[place] [address], [place], [address], [facility] 08/27/2024 10:00:48 08/06/20 24 Air & Speech Audio with Tymps (94607, 25146 & 67449) completed SIMBA ALEGRE MA, CCC-A [address] [facility],[place] [address], [place], [address], [facility] 08/06/2024 14:03:16 03/18/20 24 Fiberoptic Laryngoscopy (Comprehensive) completed LAVONNE SIM MD [address] [facility],[address], [address], [facility] 03/18/2024 11:32:05 03/18/20 24 Air only Audio (72614) completed MELODIE DELCID [address] [facility],[address], [address], [facility] 03/18/2024 11:52:00 03/18/20 24 SRT & Speech Recognition (06757) completed MELODIE DELCID [address] [facility],[place] [address], [place], [address], [facility] 03/18/2024 11:52:17 11/03/19 18 removal of sebaceous cyst completed Rizwan Castillo [facility] 03/18/2024 11:23:09 11/03/19 17 Breast augmentation w/implt completed Rizwan Castillo [facility] 03/18/2024 11:23:46 therapeutic cervical epidural injection completed LAVONNE SIM MD [address] [facility],[address], [address], [facility] 03/18/2024 11:24:17 Imaging Results Imaging Date Name Status LastModified by [facility] Details LastModified Time 03/18/2024 imaging/diagno stic result completed [email or web address] Information not available 06/23/2024 21:06:53 08/06/2024 audiogram completed [email or web address] Information no t available 08/06/2024 15:00:15 08/27/2024 audiogram completed [email or web address] Information n ot available 08/27/2024 11:42:10 Procedure Notes None recorded. Medical Equipment None Reported. Allergies Allergen ID Allergen Name Allergen Category Reaction Reaction Severity Criticality Documentation Date Start Date Code Code System Note Provider Name and Address Organization Details Recorded Time 04038 penicilli n V potassium medicatio n other Not available Not available 03/16/202416983 5 RxNorm React ion: unkno wn, unspe cifie d;; Not Available [facility] 00:54:41 Medications Name Sig Start Date Stop Date Status Note LastModified by Organization Details LastModified Time quetiapine 25 mg tablet TAKE 1 TABLET BY MOUTH THREE TIMES A DAY NEEDED active Not Available Not Available No t Available cyclobenza moe 10 mg tablet TAKE 1 TABLET BY MOUTH THREE TIMES A DAY active Not Available Not Available No t Available buspirone 5 mg tablet TAKE 1 TABLET BY MOUTH TWICE A DAY active Not Available Not Available No t Available neomycin-p olymyxin-h ydrocort 3.5 mg/mL-10,0 00 unit/mL-1 % ear solution INSTILL 3 DROPS INTO AFFECTED EAR(S) TWICE DAILY X 10 DAYS active Not Available Not Available No t Available venlafaxin e ER 37.5 mg capsule,ex tended release 24 hr TAKE 1 CAPSULE BY MOUTH EVERY DAY active Not Available Not Available No t Available prednisone 10 mg tablet TAKE 4 TABS DAILY X 3 DAYS, 3 TABS DAILY X 3 DAYS, 2 TABS DAILY X 3 DAYS, THEN 1 TAB DAILY X 3 DAYS active Not Available Not Available No t Available clindamyci n HCl 300 mg capsule TAKE 1 CAPSULE BY MOUTH THREE TIMES A DAY FOR 10 DAYS active Not Available Not Available No t Available albuterol sulfate 2.5 mg/3 mL (0.083 %) solution for nebulizati on TAKE 1 VIAL BY NEBULIZAT ION EVERY 4 HOURS NEEDED FOR WHEEZING FOR UP TO 180 DAYS. active Not Available Not Available No t Available Vitamin C 500 mg tablet TAKE 1 TABLET BY MOUTH TWICE A DAY active Not Available Not Available No t Available cetirizine 10 mg tablet TAKE 1 TABLET BY MOUTH EVERY DAY active Not Available Not Available No t Available azithromyc in 250 mg tablet TAKE (ORAL) PER PACKAGE DIRECTION S FOR 5 DAYS active Not Available Not Available No t Available fluconazol e 150 mg tablet TAKE 1 TABLET BY MOUTH ONCE, REPEAT IN 72 HOURS X 2. active Not Available Not Available No t Available senna 8.6 mg tablet TAKE 1 TABLET BY MOUTH EVERY DAY active Not Available Not Available No t Available sucralfate 100 mg/mL oral suspension TAKE 10 ML BY MOUTH 4X A DAY (WITH MEALS AND NIGHTLY). TAKE 1 HOUR BEFORE MEALS AND AT BEDTIME active Not Available Not Available No t Available ondansetro n HCl 8 mg tablet TAKE 1 TABLET BY MOUTH EVERY DAY NEEDED X 30 DAYS active Not Available Not Available No t Available meloxicam 15 mg tablet TAKE 1 TABLET BY MOUTH EVERY DAY active Not Available Not Available No t Available promethazi ne 12.5 mg tablet TAKE 1 TABLET BY MOUTH EVERY 6 HOURS NEEDED FOR NAUSEA active Not Available Not Available No t Available metronidaz ole 0.75 % (37.5 mg/5 gram) vaginal gel INSERT 1 APPLICATO R VAGINALLY DAILY AT BEDTIME,X 5 DAYS active Not Available Not Available No t Available prednisone 20 mg tablet TAKE 2 TABLETS BY MOUTH EVERY DAY IN THE MORNING FOR 3 DAYS, FOR INFLAMMAT ION. active Not Available Not Available No t Available ciprofloxa nasra 500 mg tablet TAKE 1 TABLET BY MOUTH TWICE A DAY FOR 7 DAYS active Not Available Not Available No t Available sulfametho xazole 800 mg-trimeth oprim 160 mg tablet TAKE 1 TABLET BY MOUTH TWICE A DAY X 7 DAYS active Not Available Not Available No t Available tramadol 50 mg tablet TAKE 1 TABLET BY MOUTH EVERY 8 HOURS NEEDED FOR PAIN FOR UP TO 10 DAYS. active Not Available Not Available No t Available hydromorph one 2 mg tablet TAKE 1 TABLET BY MOUTH EVERY 4 HOURS NEEDED FOR PAIN active Not Available Not Available No t Available alprazolam 0.25 mg tablet active Not Available Not Available Not Available amitriptyl ine 10 mg tablet TAKE 1 TABLET BY MOUTH EVERYDAY AT BEDTIME active Not Available Not Available No t Available meclizine 25 mg tablet TAKE 1 TABLET NEEDED ORALLY EVERY 8 HRS VERTIGO 30 DAYS active Not Available Not Available No t Available phenazopyr idine 100 mg tablet TAKE 1 TABLET BY MOUTH 3 TIMES A DAY FOR 7 DAYS active Not Available Not Available No t Available baclofen 10 mg tablet TAKE 1 TABLET BY MOUTH THREE TIMES A DAY NEEDED FOR MUSCLE SPASM active Not Available Not Available No t Available pantoprazo le 40 mg tablet,del ayed release TAKE 1 TAB BY MOUTH 2X A DAY. TAKE ON EMPTY STOMACH WAIT 30 MINS & THEN EAT B4 BREAKFAST AND SUPPER active Not Available Not Available No t Available dexamethas one 4 mg tablet TAKE 1 TABLET BY MOUTH EVERY DAY FOR 10 DAYS active Not Available Not Available No t Available fluorometh olone 0.1 % eye drops,susp ension INSTILL 1 DROP INTO BOTH EYES 4 TIMES A DAY active Not Available Not Available No t Available lidocaine 5 % topical patch APPLY 1 PATCH TOPICALLY DAILY (REMOVE AFTER 12 HOURS AND KEEP OFF 12 HOURS) active Not Available Not Available No t Available docusate sodium 100 mg capsule TAKE 1 CAPSULE BY MOUTH TWICE A DAY active Not Available Not Available No t Available sertraline 25 mg tablet TAKE 1 TABLET BY MOUTH EVERY DAY active Not Available Not Available No t Available acetaminop hen 300 mg-codeine 60 mg tablet TAKE 1 TABLET BY MOUTH 2 TIMES DAILY NEEDED FOR PAIN FOR UP TO 10 DAYS. active Not Available Not Available No t Available zolpidem 5 mg tablet TAKE 1 TABLET BY MOUTH EVERY DAY AT BEDTIME NEEDED FOR 30 DAYS active Not Available Not Available No t Available ergocalcif gian (vitamin D2) 1,250 mcg (50,000 unit) capsule TAKE 1 CAPSULE BY MOUTH ONCE A WEEK FOR 12 DOSES. active Not Available Not Available No t Available lorazepam 1 mg tablet TAKE 1 TABLET BY MOUTH TWICE A DAY FOR 30 DAYS active Not Available Not Available No t Available methylpred nisolone 4 mg tablets in a dose pack TAKE 6 TABLETS ON DAY 1 DIRECTED ON PACKAGE AND DECREASE BY 1 TAB EACH DAY FOR A TOTAL OF 6 DAYS active Not Available Not Available No t Available ondansetro n 4 mg disintegra ting tablet DISSOLVE 1 TABLET BY MOUTH EVERY 6 HOURS NEEDED FOR NAUSEA/VO MITING active Not Available Not Available No t Available cefdinir 300 mg capsule TAKE 1 CAPSULE BY MOUTH TWICE A DAY FOR 10 DAYS active Not Available Not Available No t Available fluticason e propionate 50 mcg/actuat ion nasal spray,susp ension SPRAY 2 SPRAYS NASALLY DAILY FOR 5 DAYS active Not Available Not Available No t Available naratripta n 2.5 mg tablet TAKE 1 TABLET BY MOUTH EVERY DAY active Not Available Not Available No t Available doxycyclin e hyclate 100 mg tablet TAKE 1 TABLET BY MOUTH EVERY 12 HOURS FOR 7 DAYS active Not Available Not Available No t Available dicyclomin e 10 mg capsule TAKE 1 CAP BY MOUTH FOUR TIMES A DAY BEFORE MEALS AND BEDTIME. USE NEEDED FOR ABDOMINAL CRAMPING active Not Available Not Available No t Available Ventolin HFA 90 mcg/actuat ion aerosol inhaler TAKE 2 PUFFS BY MOUTH EVERY 4 HOURS NEEDED FOR COUGH OR WHEEZING. active Not Available Not Available No t Available oxycodone 5 mg tablet TAKE 1 TABLET BY MOUTH EVERY 6 HOURS NEEDED FOR PAIN active Not Available Not Available No t Available azithromyc in 500 mg tablet TAKE 1 TABLET BY MOUTH EVERY DAY FOR 7 DAYS active Not Available Not Available No t Available ciprofloxa nasra 0.3 %-dexameth asone 0.1 % ear drops,susp ension INSTILL 4 DROPS INTO AFFECTED EAR(S) TWICE A DAY FOR 7 DAYS active Not Available Not Available No t Available nitrofuran toin monohydrat e/macrocry stals 100 mg capsule TAKE 1 CAPSULE BY MOUTH TWICE A DAY FOR 5 DAYS active Not Available Not Available No t Available pregabalin 150 mg capsule TAKE 1 CAPSULE BY MOUTH THREE TIMES A DAY active Not Available Not Available No t Available pregabalin 225 mg capsule TAKE 1 CAPSULE BY MOUTH TWICE A DAY active Not Available Not Available No t Available sodium fluoride 1.1 % dental paste USE DIRECTED. TWICE DAILY active Not Available Not Available No t Available quetiapine 50 mg tablet TAKE 1 TABLET BY MOUTH THREE TIMES A DAY NEEDED active Not Available Not Available No t Available levocetiri zine 5 mg tablet TAKE 1 TABLET (ORAL) EVERY EVENING FOR 90 DAYS active Not Available Not Available No t Available omeprazole 20 mg tablet,del ayed release 1 tablet 2016 active Medicatio n ID: [id number] Pr escribed By Name: Colleen Joseph MD Brand Name: omeprazol e Send Method: E-Prescri bed Subs Allowed: subs OK Specia l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
== END 2024-11-30 09:46 | disposition home or self-care (01) ==
PROVIDERS: PCP Internal Medicine; Visit Provider Nurse Practitioner Family
DX: G43.709 Chronic migraine without aura, not intractable, without status migrainosus (principal); G90.512 Complex regional pain syndrome I of left upper limb; M54.50 Low back pain, unspecified; R29.2 Abnormal reflex; R20.2 Paresthesia of skin; R25.1 Tremor, unspecified
CPT/HCPCS: 99204

== ENCOUNTER → 2024-11-30 08:03 | Outpatient (BNVA) | payer OTHER, SELFPAY | PROVIDERS: PCP Internal Medicine; Visit Provider Nurse Practitioner Family | DX: G43.709 Chronic migraine without aura, not intractable, without status migrainosus (principal); G90.512 Complex regional pain syndrome I of left upper limb; M54.50 Low back pain, unspecified; R29.2 Abnormal reflex; R20.2 Paresthesia of skin; R25.1 Tremor, unspecified | CPT/HCPCS: 99202 ==

== ENCOUNTER 2024-12-07 10:57 | Outpatient (REF) | payer OTHER, SELFPAY ==
--- OUTSIDE RECORDS SUMMARY | 2024-12-07 11:53 | XMS_ITS | Encounter Summary ---
Author Organization [facility] Address [address] [place] [address] Care Team Providers Care Smalltalk Developer Name Role Phone Ho Araya MD Primary Care Provider [phone] Reason for Visit * Reason Onset Date Comments Abdominal Pain 10/11/2024 Encounter Details Date Type Department Care Team (Late st Contact Info) Description 10/11/2024 Telephone Internal Medicine - [address] [address] Ho Araya MD [address] [place] [address] Abdominal Pain Social History Tobacco Use Types [...] traveled recently to another state outside of [place], [place], [place], [place], [place], [place], [place]? no o If yes, did you quarantine [...] of accident/Injury: No If yes, gather 3rd republican insurance information Third Alliance Party Information: PCP: Ho Araya MD Payor: [facility] [employer] PLAN / Plan: [facility] MEDICAID / Product Type: *No Product type* / documented in this encounter Plan of Treatment Upcoming Encounters Date Type Department Care Team (Late st Contact Info) Description 01/24/2025 2:15 PM EDT Office Visit Orthopedic Surgery [facility] [address] [phone] Diaz Galeana, DINA [address] [address] 05/02/2025 10:30 AM EDT Office Visit [facility] Hematology Oncology [address] [place] [address] Clotilde Lux, DO [address] [place] [address] documented as of this encounter Visit Diagnoses Not on filedocumented in this encounter Care Teams Smalltalk Developer Relationship Specialty Start Date End Date Ho Araya MD [address] [place] [address] PCP - General Internal Medicine 07/25/15 documented as of this encounter
--- OUTSIDE RECORDS SUMMARY | 2024-12-07 11:53 | XMS_ITS | Continuity of Care Document ---
Author Organization [facility] Address [address] [facility], 3r d Floor, [address] [place] [address]- Care Team Providers Care Preconstruction Manager Name Role Phone Quiana MENENDEZ, Ho Humphrey Primary Care Physician [phone] Encounter [facility] ACCT R [id number] Date(s): 08/03/24 - 12/01/24 [facility] [address] [facility] 3rd Floor, [address] [place] [address]- Attending Physician: William Mackenzie MD Admitting Physician: William Mackenzie MD Referring Physician: Madison Cagle NP Encounter Type: Pre-OutPatient One Time Allergies, Adverse [...] 0 Refills, Maintenance, :23:00 PM EST, Tablet, [id number], Partial fill upon patient request if the [...] Refills, Soft Stop, 08/06/24 12:19:00 PM EDT, [facility]/pharmacy #[id number], Partial fill upon [...] Confirmed Active IUD (intrauterine device) in place, Rinkuetta inserted 09/15/20 Confirmed Active Migraine without aura [...] Team Personnel Name: Verenice Ferrara RN Position: [facility] AMB Nurse Member Role: Primary Care Nurse Name: Mairlyn Luna RN Position: [facility] RN Member Role: Primary Care Nurse Name: Quiana MENENDEZ, Ho Humphrey Position: Reference Physician Member Role: PCP Address: [address] [place] [address] Telecom: Care Team Related Persons Name: MARLYN HOWARD Name: SIMON HOWARD Name: REHAN DIXON Name: EVY LAWTON Name: ANTWON NAVA Insurance Providers Guarantor name: JARRETT LAWTON Health Plan Information #: 1 Payer: [employer] Member Number: [id number] Policy Number: NA Group Number: NA Health Plan Information #: 2 Payer: [employer] Member Number: [id number] Policy Number: NA Group Number: NA
--- OUTSIDE RECORDS SUMMARY | 2024-12-07 11:53 | XMS_ITS | Encounter Summary ---
Author Organization [facility] Address [address] [place] [address] Care Team Providers Care Natural Gas Trader Name Role Phone Ho Araya MD Primary Care Provider [phone] Reason for Visit * Reason Onset Date Comments PT1 11/19/2024 Piero bonner @ [facility] Encounter Details Date Type Department Care Team (Late st Contact Info) Description 11/19[facility]2024 [facility] [address] [place] [phone] Ho Araya MD [address] [place] [address] PT1 (Piero Encarnacion @ [facility]) Social History Tobacco Use Types Packs/Day Years [...] 11/22/2024 9:36 AM EST PT-1 Auth # [id number] good for 4 visit per 1 yr. * Alesha Adamson - 11/19/2024 12:52 PM EST PT-1 Request Call [employer]'s Medicaid Group new provider or submitter number is [id number] Verify and document patients [place] Health insurance ID # (NOT [facility] ID): [id number] Payor: [email or web address] PLAN / Plan: [employer] MEDICAID / Product Type: *No Product type* / Patient mailing address: [address] [place] [address] (home) [phone] (work) Pt. demographics verified? yes If not accurate, update registration. Is this a NEW request or a RENEWAL? New request Name of treating facility: [facility] Name (first & last) of treating provider? required : Piero Encarnacion PA-C What is the medical reason why the patient is seeing the above provider? CRPS Address/Zip code for treating provider: [address] [place] [address], [place] [address] Phone # for treating provider: [phone] Is the provider in the [facility] network (do they accept [place] Health insurance)? yes What specialtly is this [...] 2:15 PM EDT Office Visit Orthopedic Surgery - [place] [address] [phone] Diaz Galeana, DPM [address] [address] 05/02/2025 10:30 AM EDT Office Visit [facility] Hematology Oncology [address] [place] [phone] Clotilde Lux, [address] [place] [address] documented as of this encounter Visit Diagnoses Not on filedocumented in this encounter Care Teams Natural Gas Trader Relationship Specialty Start Date End Date Ho Araya MD [address] [place] [address] PCP - General Internal Medicine 07/25/15 documented as of this encounter
--- OUTSIDE RECORDS SUMMARY | 2024-12-07 11:53 | XMS_ITS | Encounter Summary ---
Author Organization [facility] Address [address] [place] [address] Care Team Providers Care Braiding Machine Tender Name Role Phone Ho Araya MD Primary Care Provider [phone] Reason for Referral * Imaging (Routine) - Authorized Specialty Diagnoses / Procedures Referred By Contac t Referred To Contact Radiology Diagnoses Cervicalgia Procedures US Head Neck Soft Tissue Piero Encarnacion PA [address] [place] [address] [address] Referral ID Status Reason Start Date Expiration Date V isits Requested Visits Authorized [id number] Authorized 11/10/2024 11/10/2025 1 1 Reason for Visit * Imaging (Routine) - Authorized Specialty Diagnoses / Procedures Referred By Contac t Referred To Contact Radiology Diagnoses Cervicalgia Procedures US Head Neck Soft Tissue Piero Encarnacion PA [address] [place] [address] [address] Referral ID Status Reason Start Date Expiration Date V isits Requested Visits Authorized [id number] Authorized 11/10/2024 11/10/2025 1 1 Encounter Details Date Type Department Care Team (Latest Contact Info) Description 11/15/2024 12:57 PM EST - 11/15/2024 11:59 PM EST Hospital Encounter [address] [address] Cervicalgia Discharge Disposition: Home or [...] bottle twice daily for weight loss / Renick Flavored 60 each 09/29/2024 NUTRITIONAL SUPPLEMENTS ORAL [...] 2:15 PM EDT Office Visit Orthopedic Surgery [facility] [address] [phone] Diaz Galeana DPM [address] [address] 05/02/2025 10:30 AM EDT Office Visit [facility] Hematology Oncology [address] [place] [phone] Clotilde Lux DO [address] [place] [address] documented as of this encounter Procedures Procedure [...] Signed Date: 11/23/2024 08:29 ET Workstation ID: [id number] Transcribed By: Self Edit Transcribed Date: 11/23/2024 [...] Signed Date: 11/23/2024 08:29 ET Workstation ID: [id number] Transcribed By: Self Edit Transcribed Date: 11/23/2024 08:27 ET Piero SHIRLEY IMG US PROCEDURES documented in this encounter Visit Diagnoses Diagnosis Cervicalgia documented in this encounter Care Teams Braiding Machine Tender Relationship Specialty Start Date End Date Ho Araya MD [address] [place] [address] PCP - General Internal Medicine 07/25/15 documented as of this encounter
--- OUTSIDE RECORDS SUMMARY | 2024-12-07 11:53 | XMS_ITS | Continuity of Care Document ---
Author Organization [facility] Address [address] [facility], [address] Floor, [address] [place] [phone]- Care Team Providers Care Dyeing Machine Feeder Name Role Phone Quiana MENENDEZ, Ho Humphrey Primary Care Physician Encounter [facility] Date(s): 11/01/24 - 12/01/24 [facility] [address] [facility] [address]rd Floor, [address] [place] [phone]- Attending Physician: Admtr, Chaz Admitting Physician: Admtr, Chaz Referring Physician: Admtr, Ar8 Encounter Type: Triage Allergies, Adverse Reactions, Alerts [...] 0 Refills, Maintenance, :23:00 PM EST, Tablet, [id number], Partial fill upon patient request if the [...] Refills, Soft Stop, 08/06/24 12:19:00 PM EDT, [id number], Partial fill upon patient request if [...] on: 04/12/24 Sex Sex Representation Female (finding) Laboratory * Event Display: Non Lab Results Authored Date: Radiology * Event Display: CT Scan Head, Non- Authored Date: Patient Care team information Care Team Personnel Name: Verenice Ferrara RN Position: [facility] Nurse Member Role: Primary Care Nurse Name: Marilyn Luna RN Position: [facility] RN Member Role: Primary Care Nurse Name: Quiana MENENDEZ, Ho Humphrey Position: Reference Physician Member Role: PCP Address: [address] [place] [address] Telecom: Care Team Related Persons Name: MARLYN HOWARD Name: SIMON HOWARD Name: REHAN DIXON Name: EVY LAWTON Name: ANTWON NAVA Insurance Providers Guarantor name: JARRETT LAWTON Health Plan Information #: 1 Payer: [employer] Member Number: NA Policy Number: NA Group Number: NA
--- OUTSIDE RECORDS SUMMARY | 2024-12-07 11:53 | XMS_ITS | Encounter Summary ---
Author Organization [facility] Address [address] [place] [phone] Care Team Providers Care Physical Aerodynamicist Name Role Phone Ho Araya MD Primary Care Provider [phone] Reason for Visit * Reason Onset Date Comments faxed refill 11/09/2024 Encounter Details Date Type Department Care Team (Late st Contact Info) Description 11/09/2024 Telephone Internal Medicine - [address] [phone] Ho Araya MD [address] [place] [phone] faxed refill Social History Tobacco Use Types [...] EST Not prescribed by me * Chayito aMx [place] - 11/09/2024 3:24 PM EST JAVY 10.22.24 No results found for: GLUCOSE , CALCIUM , NA , K , CO2 , CL , BUN , CREATININE documented in this encounter Plan of Treatment Upcoming Encounters Date Type Department Care Team (Late st Contact Info) Description 01/24/2025 2:15 PM EDT Office Visit Orthopedic Surgery [place] [id number] [phone] Diaz Galeana, DPM [address] [address] 05/02/2025 10:30 AM EDT Office Visit [facility] Hematology Oncology [address] [place] [phone] Clotilde Lux DO [address] [place] [address] documented as of this encounter Visit Diagnoses Not on filedocumented in this encounter Discontinued Medications Medication Sig Discontinue Reason Start Date End Da te lidocaine (XYLOCAINE) 5 % ointment Apply 1 Applicator topically as needed (joint pain) for up to 360 days. Reorder 05/17/2024 11/09/2024 documented as of this encounter Care Teams Physical Aerodynamicist Relationship Specialty Start Date End Date Ho Araya MD [address] [place] [phone] PCP - General Internal Medicine 07/25/15 documented as of this encounter
--- OUTSIDE RECORDS SUMMARY | 2024-12-07 11:53 | XMS_ITS | Encounter Summary ---
Author Organization [facility] Address [address] [place] [phone] Care Team Providers Care Counter Dish Carrier Name Role Phone Ho Araya MD Primary Care Provider [phone] Reason for Visit * Reason Onset Date Comments Letter for School/Work 11/19/2024 Encounter Details Date Type Department Care Team (Late st Contact Info) Description 11/19/2024 [facility] [address] [place] [phone] Ho Araya MD [address] [place] [phone] Letter for School/Work Social History Tobacco Use [...] Curtis 11/22/2024 12:33 PM EST Badge # [id number] * Chayito Max MA - 11/19/2024 1:41 [...] Visit Orthopedic Surgery [facility] [address] [phone] Diaz Galeana DPM [address] [address] 05/02/2025 10:30 AM EDT Office Visit [facility] Hematology Oncology [address] [place] [phone] Clotilde Lux, [address] [place] [address] documented as of this encounter Visit Diagnoses Not on filedocumented in this encounter Care Teams Counter Dish Carrier Relationship Specialty Start Date End Date Ho Araya MD [address] [place] [phone] PCP - General Internal Medicine 07/25/15 documented as of this encounter
--- OUTSIDE RECORDS SUMMARY | 2024-12-07 11:53 | XMS_ITS | Clinical Summary ---
Author Organization [facility] Address [address] [place] [address] Phone Care Team Providers Care Hull Drafter Name Role Phone Ho Araya MD Primary Care Provider [phone] Allergies Active Allergy Reactions Criticality Noted Date [...] as needed for sleep. - Oral Active methylPREDNISol one (MEDROL) 4 mg tablet Sig - Route: [...] and then eat to activate the medication 2 Active diclofenac (VOLTAREN) 1 % topical gel Apply 4 g topically 2 times daily as needed (Thigh pain). 4 Active dicyclomine (BENTYL) 10 mg capsule 4 Active linaCLOtide (Linzess) 145 mcg capsule Take 1 tablet by mouth 1 (one) time each day. 4 Active cetirizine (ZyrTEC) 10 mg tablet Take 1 tablet (10 mg total) by mouth 1 (one) time each day. 4 Active promethazine (PHENERGAN) 12.5 mg tablet Take 1 tablet (12.5 mg total) by mouth every 6 (six) hours if needed. 4 Active fluticasone propionate (FLONASE) 50 mcg/actuation nasal spray SPRAY 2 SPRAYS INTO EACH NOSTRL ONCE DAILY 3 Active docusate sodium (COLACE) 100 mg capsule Take 1 capsule (100 mg total) by mouth 2 (two) times a day. 3 Active senna (SENOKOT) 8.6 mg tablet Take 1 tablet (8.6 mg total) by mouth 1 (one) time each day. 3 Active pregabalin (LYRICA) 225 mg capsule Take 1 capsule (225 mg total) by mouth 2 (two) times a day. 2 Active baclofen (LIORESAL) 10 mg tablet Take 1 Tablet by mouth 2 times daily as needed for Other (muscle spasm, may cause sedation). 2 Active naratriptan (AMERGE) 2.5 mg tablet Take 2.5 mg by mouth as needed. 2.5 mg at onset of headache, may repeat in 4 hours if needed Active acetaminophen (TYLENOL) 325 mg tablet TAKE 2 TABLETS BY MOUTH EVERY 6 HOURS NEEDED FOR FEVER/MILD PAIN SCALE 1 3 0 Active polyethylene glycol (PEG) 17 gram/dose oral powder Sig: DISSOLVE 17 GRAMS INTO WATER AND DRINK BY MOUTH EVERY DAY Sent to pharmacy as: Polyethylene Glycol 3350 17 GM/SCOOP Oral Powder (GLYCOLAX) Active ascorbic acid (VITAMIN C) 500 mg tablet Take 1 tablet (500 mg total) by mouth 2 (two) times a day. 60 each 2 4 12/21/19 25 Active pantoprazole (PROTONIX) 40 mg EC tablet Take 1 tablet (40 mg total) by mouth 2 (two) times a day. Take on empty stomach, wait 30 mins and then eat to activate the medication- before breakfast and supper 60 each 11 4 09/27/20 25 Active sucralfate (CARAFATE) 100 mg/mL suspension Take 10 mL (1 g total) by mouth 4 (four) times a day (with meals and nightly). Take 1 hour before meals and at bedtime 1200 mL 4 Active ondansetron (ZOFRAN) 8 mg tablet Take 1 tablet (8 mg total) by mouth 3 (three) times a day. 60 tablet 6 4 Active nutritional drink (Ensure) liquidIndicatio ns:Complex regional pain syndrome type 1, affecting unspecified site,Weight loss,BMI less than 19,adult 1 bottle twice daily for weight loss / [place] Flavored 60 each 4 Active lidocaine (XYLOCAINE) 5 % ointment Apply topically 2 (two) times a day. 35.44 g 5 Active lidocaine (XYLOCAINE) 5 % ointment Apply 1 Applicator topically as needed (joint pain) for up to 360 days. 4 11/09/19 25 Discontinue d(Reorder) aluminum-magnes ium hydroxide-simet hicone (Antacid-Antiga s) 200-200-20 mg/5 mL suspension Take 15 mL by mouth 4 (four) times a day (before meals and nightly) for 7 days. 420 mL 5 11/12/19 25 Active Problems Problem Noted Date Diagnosed Date Complex regional pain syndrome type 1 08/12/2024 Vitamin D deficiency 01/21/2024 Seasonal allergies 05/30/2022 Anxiety and depression 10/22/2021 Cervical paraspinous muscle spasm 10/22/2021 Fibromyalgia 11/17/2020 Migraine 07/03/2018 Overview (08/12/2024): Seen at [facility], initial visit 09/26/2020. Nerve blocks and trigger point injections done 10/04/2020 and 01/04/2021. Acne vulgaris 08/21/2016 Asthma 01/09/2012 Encounters Date Type Department Care Team Description 11/19/2024 Telephone Internal Medicine - [facility] [address] [place], [place] [phone] Ho Araya MD PT1 (Piero Encarnacion @ [facility]-Rheumatology ) 11/19/2024 Telephone [facility] [address] [facility] [place] [place] [phone] Ho Araya MD Letter for School/Work 11/15/2024 12:57 PM EST - 11/15/2024 11:59 PM [facility] Hospital Encounter [facility] Ultrasound [address] [place] [phone] Cervicalgia Discharge Disposition: Home or Self Care 11/09/2024 Telephone Internal Medicine - [facility] [address] [place], [place] [phone] Ho Araya MD faxed refill 11/08/2024 Telephone Gastroenterology [facility] 175 [facility] [address] [phone] Christos Blackwell PA 10/29/2024 11:11 AM EST - 10/29/2024 11:59 PM EST Hospital Encounter [facility] CT Scan [address] [place] [phone] Decreased appetite; Epigastric pain; Nausea; Irritable bowel syndrome, unspecified type Discharge Disposition: Home or Self Care 10/13/2024 Telephone [facility] Hematology Oncology [address] [place] [address] Clotilde Lux DO Referral 10/12/2024 10:30 AM EST Office Visit [facility] Hematology Oncology [address] [place] [phone] Clotilde Lux DO Leukopenia, unspecified type (Primary Dx); Bruising 10/11/2024 Telephone Internal Medicine - [facility] [address] [place] [phone] Ho Araya MD Abdominal Pain 09/27/2024 10:40 AM EST Office Visit Gastroenterology [facility] 175 [facility] 175 [facility] [address] [place] [phone] Christos Blackwell PA Decreased appetite (Primary Dx); Epigastric pain; Nausea; Irritable bowel syndrome, unspecified type 09/27/2024 Telephone Gastroenterology [facility] 175 [facility] [address] [phone] Christos Blackwell PA 09/27/2024 [facility] [phone] Ho Araya MD Fitting for DME (DME / [employer]) 09/24/2024 Lab Requisition [facility] - Main Lab [address] [facility] [place] [address] Sergio Gross PA Other microscopic hematuria 09/22/2024 9:15 AM EST Office Visit Orthopedic Surgery [facility] 250 175 [facility] 250 [place] [phone] Diaz Galeana, DPM Fibromyalgia (Primary Dx); Complex regional pain syndrome type 1, affecting unspecified site 09/20/2024 Telephone Internal Medicine - [facility] [address] [place] [phone] Ho Araya MD DME Request ( [employer] (boost)) 09/17/2024 [facility] [phone] Ho Araya MD Fitting for DME 09/14/2024 [facility] [phone] Ho Araya MD DME REQUEST 09/13/2024 10:45 AM EST [facility] [address] [place] [address] Zhen Dmuont PA Complex regional pain syndrome type 1, affecting unspecified site (Primary Dx); Tachycardia; Dysuria; Burning sensation of female pelvis 09/13/2024 [facility] [phone] Meggan Mcbride [place] Request For Order(s) 09/13/2024 [facility] [phone] Zhen Dumont PA Outplacement Consultant Feedback 09/10/2024 Telephone Internal Medicine - [address] [phone] Ho Araya MD UTI; Back Pain from Last 3 Months Immunizations Name Administration Dates Next Due Influenza Quadravalent, MDCK , 0.5ml, preservative free (Flucelvax) 6mo and older 10/22/2021 Influenza trivalent, with pr eservative (Fluzone; Afluria) 6mo and older 08/21/2016 Surgical History Surgery Date Site/Laterality Comments BREAST SURGERY PROCEDURE:TRANSUMBILICAL AUGMENTATION MAMMAPLASTY OVARIAN CYST REMOVAL PROCEDURE:OVARIAN CYST REMOVAL OVARIAN CYST REMOVAL N/A PROCEDURE: TX OVARIAN CYSTECTOMY UNI/BI BREAST SURGERY PROCEDURE: TX BREAST AUGMENTATION WITH IMPLANT Medical History Medical History Date Comments Asthma DX:Asthma Migraines 07/03/2018 DX:Migraines; CO MMENT: Seen at [facility], initial visit 09/26/2020. Nerve blocks [...] PM EDT Office Visit Orthopedic Surgery - [place] [address] [phone] Diaz Galeana, DPM [address] [address] 05/02/2025 10:30 AM EDT Office Visit [facility] Hematology Oncology [address] [place] [phone] Clotilde Lux, DO [address] [place] [address] Health Maintenance Due Date Last Done Comments [...] T3 Routine 09/13/2024 11:37 AM EST Tachycardia DEPRESSION SCREENING Routine 05/12/2024 LIPID PANEL Routine 05/12/2024 HEPATITIS C SCREENING Routine 11/17/2020 from Last [...] Signed Date: 11/23/2024 08:29 ET Workstation ID: [id number] Transcribed By: Self Edit Transcribed Date: 11/23/2024 [...] Signed Date: 11/23/2024 08:29 ET Workstation ID: [id number] Transcribed By: Self Edit Transcribed Date: 11/23/2024 08:27 ET Piero SHIRLEY IMCayden US PROCEDURES * CT Abdomen Pelvis w Contrast (10/29/2024 11:35 AM EST) Anatomical Region Laterality Modality Body Computed Tomogra phy 11/01/2024 4:12 PM EST Impressions 11/01/2024 4:20 PM EST Impression: 1. 3 mm nonobstructing left renal calculus, unchanged. 2. Trace free fluid in the pelvis, most likely physiologic in a patient of this age. 3. IUD well-positioned. Telerad PA ([id number]) -------- FINAL REPORT -------- Dictated By: Patrica Ramirez Dictated Date: 11/01/2024 16:12 ET Assigned Physician: Patrica Ramirez Reviewed and Electronically Signed By: Patrica Ramirez Signed Date: 11/01/2024 16:20 ET Workstation ID: [id number] Transcribed By: Self Edit Transcribed Date: 11/01/2024 16:12 ET Narrative 11/01/2024 4:20 PM EST History: Epigastric pain. Early satiety. Comparison: 01/22/24 Technique: Helical volumetric imaging of the abdomen and pelvis was performed following oral contrast and during the uneventful intravenous administration of 90 cc Isovue-370. DLP: 379.35 mGy/cm [employer] VCT Iterative reconstruction technique Findings: Bilateral augmentation [...] of 90 cc Isovue-370. DLP: 379.35 mGy/cm [employer] Iterative reconstruction technique Findings: Bilateral augmentation mammoplasty [...] a patient ofthis age. 3. IUD well-positioned. Telerad PA ([id number]) -------- FINAL REPORT -------- Dictated By: Patrica Ramirez Dictated Date: 11/01/2024 16:12 ET Assigned Physician: Patrica Ramirez Reviewed and Electronically Signed By: Patrica Ramirez Signed Date: 11/01/2024 16:20 ET Workstation ID: [id number] Transcribed By: Self Edit Transcribed Date: 11/01/2024 16:12 ET Christos SHIRLEY IMG CT PROCEDURES * MARIE IFA with titer and pattern (10/11/2024 1:49 PM EST) Pathologist [facility] MARIE Negative Negative 10/13/2024 2:16 PM EST [facility] Blood Venous blood specimen / Unknown Venipuncture / Unknown 10/11/2024 1:49 PM EST 10/11/2024 4:46 PM EST Clotilde Lux DO LAB BLOOD ORD ERABLES [facility] [address] [place] [address], * (ABNORMAL) CBC auto differential (10/11/2024 1:49 PM EST) Only the most recent of2 resultswithin the time period is included. [facility] WBC 9.4 4.8 - 10.8 K/mcL LAB HEMETOLOGY METHOD 10/11/2024 5:15 PM EST [facility] RBC 4.40 3.80 - 4.80 M/mcL LAB HEMETOLOGY METHOD 10/11/2024 5:15 PM [facility] Hemoglobin 13.2 11.5 - 16.0 g/dL LAB HEMETOLOGY METHOD 10/11/2024 5:15 PM [facility] Hematocrit 42.3 35.0 - 47.0 % LAB HEMETOLOGY METHOD 10/11/2024 5:15 PM [facility] MCV 97.0 79.0 - 98.0 FL LAB HEMETOLOGY METHOD 10/11/2024 5:15 PM [facility] MCH 30.3 27.0 - 32.0 pcg LAB HEMETOLOGY METHOD 10/11/2024 5:15 PM [facility] MCHC 31.2(L) 32.0 - 37.0 g/dL LAB HEMETOLOGY METHOD 10/11/2024 5:15 PM [facility] RDW 13.0 11.0 - 15.0 % LAB HEMETOLOGY METHOD 10/11/2024 5:15 PM [facility] Platelets 275 130 - 400 K/mcL LAB HEMETOLOGY METHOD 10/11/2024 5:15 PM [facility] MPV 10.6 7.0 - 11.0 FL LAB HEMETOLOGY METHOD 10/11/2024 5:15 PM [facility] NRBC 0.0 <1.0 % LAB HEMETOLOGY METHOD 10/11/2024 5:15 PM [facility] NRBC Absolute 0.00 <0.10 K/mcL LAB HEMETOLOGY METHOD 10/11/2024 5:15 PM [facility] Neutrophils Relative 79.5 % LAB HEMETOLOGY METHOD 10/11/2024 5:15 PM [facility] Lymphocytes Relative 13.3 % LAB HEMETOLOGY METHOD 10/11/2024 5:15 PM [facility] Monocytes Relative 6.1 % LAB HEMETOLOGY METHOD 10/11/2024 5:15 PM [facility] Eosinophils Relative 0.3 % LAB HEMETOLOGY METHOD 10/11/2024 5:15 PM [facility] Basophils Relative 0.3 % LAB HEMETOLOGY METHOD 10/11/2024 5:15 PM [facility] Immature Granulocytes Relative 0.5 % LAB HEMETOLOGY METHOD 10/11/2024 5:15 PM EST [facility] Neutrophils Absolute 7.47(H) 1.50 - 7.00 K/mcL LAB HEMETOLOGY METHOD 10/11/2024 5:15 PM EST [facility] Lymphocytes Absolute 1.25 1.00 - 5.00 K/mcL LAB HEMETOLOGY METHOD 10/11/2024 5:15 PM EST [facility] Monocytes Absolute 0.57 0.20 - 1.00 K/mcL LAB HEMETOLOGY METHOD 10/11/2024 5:15 PM EST [facility] Eosinophils Absolute 0.03 0.00 - 0.50 K/mcL LAB HEMETOLOGY METHOD 10/11/2024 5:15 PM EST [facility] Basophils Absolute 0.03 0.00 - 0.20 K/mcL LAB HEMETOLOGY METHOD 10/11/2024 5:15 PM EST [facility] Immature Granulocytes Absolute 0.05(H) 0.00 - 0.03 K/mcL LAB HEMETOLOGY METHOD 10/11/2024 5:15 PM EST [facility] Blood Venous blood specimen / Unknown Venipuncture / Unknown 10/11/2024 1:49 PM EST 10/11/2024 4:47 PM EST Clotilde Lux DO LAB BLOOD ORD ERABLES [facility] [address] [place] [address], * Sedimentation rate (10/11/2024 1:49 PM EST) Sed Rate 4 0 - 20 mm/hr LAB HEMETOLOGY METHOD 10/11/2024 5:34 PM EST [facility] Blood Venous blood specimen / Unknown Venipuncture / Unknown 10/11/2024 1:49 PM EST 10/11/2024 4:47 PM EST Clotilde Lux DO LAB BLOOD ORD ERABLES Performing Organization Address City/[facility]/ZIP Co de Phone Number [facility] [address] [place] [address], * Rheumatoid factor (10/11/2024 1:49 PM EST) [facility] Rheumatoid Factor <10.0 <15.0 I Unit/mL LAB CHEMISTRY METHOD 10/11/2024 9:11 PM EST [facility] Blood Venous blood specimen / Unknown Venipuncture / Unknown 10/11/2024 1:49 PM EST 10/11/2024 4:46 PM EST Clotilde Lux LAB BLOOD ORD ERABLES Performing Organization Address City/[facility]/ZIP Co de Phone Number [facility] [address] [place] [address], * Anatomic pathology outside consult (09/21/2024 12:00 AM EST) [facility] FISH Addendum Results of UroVysion fluorescence in situ hybridization (FISH) testing: CEP3: Normal CEP7: Normal CEP17: Normal LSI 9p21: Normal Interpretation: Normal profile Controls stained appropriately. Note: The results are intended as a screening device and should be interpreted in association with other clinical and pathological findings. 10/12/2024 9:06 AM [facility] Addendum electronically signed by Gaetano Fernando MD on 10/12/2024 at 9:06 AM Final Diagnosis Urine, Voided: Negative for high grade urothelial carcinoma. Note: UroVysion testing to follow. 10/12/2024 9:06 AM [facility] Clinical Information [id number], Urine cyto/urine FISH. 10/12/2024 9:06 AM [facility] Gross Description A. Urine, Voided, : [id number] recd 1 TP cyto 1 TP fish. 10/12/2024 9:06 AM [facility] Disclaimer Unless otherwise specified, all tissue is 10% NB formalin fixed and paraffin embedded. 10/12/2024 9:06 AM [facility] Tissue Urine specimen from urethra / Unknown 09/21/2024 09/24/2024 1:47 PM EST Sergio SHIRLEY LAB PATHOLOGY ORDERA BLES [facility] [address] [place] [address], * (ABNORMAL) Urinalysis with reflex microscopic and culture (09/13/2024 11:37 AM EST) Specific [place] Urine 1.021 1.003 - 1.030 LAB URINALYSIS - AUTOMATED METHOD 09/13/2024 2:30 PM [facility] pH, Urine >=9.0(A) 5.0 - 8.0 pH LAB URINALYSIS - AUTOMATED METHOD 09/13/2024 2:30 PM [facility] Leukocytes, Urine Negative Negative LAB URINALYSIS - AUTOMATED METHOD 09/13/2024 2:30 PM [facility] Nitrite, Urine Negative Negative LAB URINALYSIS - AUTOMATED METHOD 09/13/2024 2:30 PM [facility] Protein, Urine 30(A) <=Trace mg/dL LAB URINALYSIS - AUTOMATED METHOD 09/13/2024 2:30 PM [facility] Glucose, Urine Negative Negative mg/dL LAB URINALYSIS - AUTOMATED METHOD 09/13/2024 2:30 PM [facility] Ketones, Urine Negative Negative mg/dL LAB URINALYSIS - AUTOMATED METHOD 09/13/2024 2:30 PM [facility] Urobilinogen, Urine 1.0 0.2 - 1.0 mg/dL LAB URINALYSIS - AUTOMATED METHOD 09/13/2024 2:30 PM [facility] Bilirubin, Urine Negative Negative LAB URINALYSIS - AUTOMATED METHOD 09/13/2024 2:30 PM [facility] Blood, Urine Negative Negative LAB URINALYSIS - AUTOMATED METHOD 09/13/2024 2:30 PM [facility] RBC, Urine 4.0 0 - 4 /HPF LAB URINALYSIS - AUTOMATED METHOD 09/13/2024 2:30 PM [facility] WBC, Urine 1.9 0 - 4 /HPF LAB URINALYSIS - AUTOMATED METHOD 09/13/2024 2:30 PM [facility] Squamous Epithelial, Urine 56 0 - 60 /LPF LAB URINALYSIS - AUTOMATED METHOD 09/13/2024 2:30 PM [facility] Bacteria, Urine Few(A) Negative /HPF LAB URINALYSIS - AUTOMATED METHOD 09/13/2024 2:30 PM [facility] Hyaline Casts, Urine 2.0 0 - 3 /LPF LAB URINALYSIS - AUTOMATED METHOD 09/13/2024 2:30 PM [facility] Urine Urine specimen obtained by clean catch procedure / Unknown Non-blood Collection / Unknown 09/13/2024 11:37 AM EST 09/13/2024 11:37 AM EST Zhen SHIRLEY LAB URINE ORDER QI [facility] [address] [place] [address], * Daniels urine culture tube (09/13/2024 11:37 AM EST) Extra Tube Hold for add-ons. 09/13/2024 3:01 PM [facility] Comment:Auto resulted. Urine Urine specimen obtained by clean catch procedure / Unknown Non-blood Collection / Unknown 09/13/2024 11:37 AM EST 09/13/2024 11:37 AM EST Zhen SHIRLEY LAB URINE ORDER QI Performing Organization Address City/[facility]/ZIP Co de Phone Number [facility] [address] [place] [address], * Thyroid stimulating hormone with reflex to free t4 and free t3 (09/13/2024 11:37 AM EST) [facility] TSH 0.61 0.40 - 4.00 mcIU/mL LAB CHEMISTRY METHOD 09/13/2024 4:26 PM EST [facility] Blood Venous blood specimen / Unknown Venipuncture / Unknown 09/13/2024 11:37 AM EST 09/13/2024 11:37 AM EST Zhen SHIRLEY LAB BLOOD ORDER QI Performing Organization Address City/[facility]/ZIP Co de Phone Number [facility] [address] [place] [address], * Depression Screening (05/12/2024) [facility] Depression Screening abstracted Historical Provider MD HAKAN SADLER E * Lipid panel (05/12/2024) [facility] LDL/HDL Ratio 3 0 - 4 Triglycerides 56 0 - 150 mg/dL Cholesterol 173 0 - 200 mg/dL HDL 68 40 mg/dL LDL Cholesterol 94 0 - 100 mg/dL Blood Venous blood specimen / Unknown Historical Provider LAB BLOOD ORDERAB LES * Hepatitis C Screening (11/17/2020) [facility] Hepatitis C Screening abstracted Historical Provider MD HAKAN Mena from Last 3 Months or Most Recently Relevant to Health Maintenance Care Teams Hull Drafter Relationship Specialty Start Date End Date Ho Araya MD [address] [place] [id number] PCP - General Internal Medicine 07/25/15
--- OUTSIDE RECORDS SUMMARY | 2024-12-07 11:53 | XMS_ITS | Clinical Summary ---
Author Organization [facility] Address [address] [place] [address] Care Team Providers Care Oil Transport Driver Name Role Phone Ho Araya MD Primary Care Provider [phone] Allergies Active Allergy Reactions Criticality Noted Date [...] age to complete this topic Care Teams Oil Transport Driver Relationship Specialty Start Date End Date Ho Araya MD PCP - General Internal Medicine 05/19/24
--- OUTSIDE RECORDS SUMMARY | 2024-12-07 11:53 | XMS_ITS | Data Portability ---
Author Organization [facility], [address] Address [address] [place] [address] Assessment No assessment recorded. Plan of Treatment Reminders Order Date Submit Date Provider Last Modified By Organization Details Last Modified Time Details Appointments None recorded. Lab rapid strep group A, throat 2022 023 [email or web address] 5 [address], [address] [place], [address], 3 13:02:13 streptococc us group A, culture, throat 2022 023 [email or web address] [facility] ([facility], [address] [place] [address], [place], [address], 3 13:11:10 Referral None recorded. Procedures None recorded. Surgeries None recorded. Imaging None recorded. Medication Orders Polytrim 10,000 unit-1 mg/mL eye drops 2022 023 [facility]/Pharmacy #1130, [phone] [place], [address], 3 10:38:33 Ciprodex 0.3 %-0.1 % ear drops,suspe nsion 2023 024 [facility]/Pharmacy #1138, [phone] [place], [address], 4 08:57:12 Zithromax Z-Kory 250 mg tablet 2023 024 [facility]/Pharmacy #1130, [phone] [place], [address], 09:49:54 prednisone 20 mg tablet 2023 024 [facility] [phone] [place], [address], 09:11:00 cefdinir 300 mg capsule 2023 024 [facility] [phone] [place], [address], 09:10:58 Patient TargetsNo targets recorded. Patient Instructions Encounter Date Encounter Id Patient Instructions Last Modified By Organization Details Last Modified Time 12/31/2022 [id number] pinkeye: care instructions [email or web address] Not available 12/31/2022 13:04:53 sore throat: car e instructions Not available 12/31/2022 13:02:13 Use the eye [...] Emergency Medical evaluation for any worsening symptoms. [email or web address] Not available 12/31/2022 13:07:42 01/07/2023 [id number] sore throat: car e instructions Not available 01/07/2023 11:57:17 04/18/2024 [id number] Your ear does no t currently look [...] Ricky luck Not available 04/18/2024 09:22:15 06/19/2024 [id number] middle ear fluid : care instructions [email or web address] [...] p A). (CLSI ) Not Available [facility] ([facility]) [address] [facility], [place], [address], 01/02/2023 12:06:18 12/31/19 23 12/31/2022 rapid strep group A, throa t Unknown Analyte Normal = Negati ve Not Available [address] [place], [address], 12/31/2022 11:53:41 12/31/19 23 12/31/2022 rapid strep group A, throa t Unknown Analyte negati ve Not Available [address] [place], [address], 12/31/2022 11:53:41 Result Notes None recorded. Problems Name Problem SNOMED Code Status Onset Date Resolution Date Notes Provider Name and Address Organization Details Recorded Time Otitis externa of left ear 3686159304009 109 Active 2023 Deacon Evans, DO [address] , [place], [address], [place] - [facility] 4 09:49:06 Acute left otitis media 540574203 Active 2023 Deacon Evans, DO [address] , [place], [address], [place] - [facility] 4 11:56:45 Acute serous otitis media of bilateral ears 0037225888494 107 Active 2023 Boyd Dodge, HEELER MACHINE [address] , [place], [address], [place] - [facility] 4 09:08:47 Bilateral earache 564056564 Active 2023 Boyd Dodge, HEELER MACHINE [address] , [place], [address], [place] - [facility] 4 09:09:15 Fibromyalgi a 483483707 Active 2022 TONYA DESMITH null, PA - [facility] 3 11:56:52 Migraine 42904996 Active 2022 TONYA DESMITH null, PA - [facility] 3 11:56:56 Problem Notes None recorded. Procedures Surgical History Date Name Laterality Status Provider Name and Address Organization Details Recorded Time Removal of ovarian cyst(s) completed TONYA DESMITH PA - [facility] 12/31/2022 11:57:36 Breast augmentation w/implt completed OTNYA DESMITH PA - [facility] 12/31/2022 11:57:41 Imaging Results None recorded. Procedure Notes None recorded. Medical Equipment None Reported. Allergies Allergen ID Allergen Name Allergen Category Reaction Reaction Severity Criticality Documentation Date Start Date Code Code System Note Provider Name and Address Organization Details Recorded Time 942244 Product containin g penicilli n and antibioti c (product) medicatio n rash Not available Not available 12/31/2022 80442 05 SNOMED TONYA DESMITH null, PA - [facility] 3 11:54:53 511213 Reglan medicatio n itching Not available Not [...] Not Available Vitals Date Recorded Body height Body weight Oxygen saturation Oxygen saturation in Arterial blood by Pulse oximetry Pain severity - 0-10 verbal numeric rating [Score] - Reported Heart rate Body temperature Systolic blood pressure Diastolic blood pressure Provider Name and Address Organization Details Last Updated DateTime 4 167.64 cm 24811.4 2 g 98 % 98 % 7 86 /min 97.8 [degF] 97 mm[Hg] 64 mm[Hg] Karla Kilgore PA - [facility] 4 09:32:37 Date Recorded Body height Pain severity - 0-10 verbal numeric rating [Score] - Reported Body temperature Body weight Oxygen saturation Oxygen saturation in Arterial blood by Pulse oximetry Heart rate Systolic blood pressure Diastolic blood pressure Provider Name and Address Organization Details Last Updated DateTime 4 167.64 cm 7 97.1 [degF] 07193.0 1 g 98 % 98 % 90 /min 96 mm[Hg] 65 mm[Hg] Karla Kilgore PA - [facility] 4 08:38:15 Date Recorded Body height Body weight Body mass index (BMI) Heart rate Respiratory rate Body temperature Systolic blood pressure Diastolic blood pressure Provider Name and Address Organization Details Last Updated DateTime 4 167.64 cm 81818.6 g 21.1 kg/m2 68 /min 18 /min 98.5 [degF] 109 mm[Hg] 72 mm[Hg] eMlissa Raygoza PA - [facility] 4 09:00:07 Date Recorded Body height Body mass index (BMI) Body weight Pain severity - 0-10 verbal numeric rating [Score] - Reported Oxygen saturation Oxygen saturation in Arterial blood by Pulse oximetry Heart rate Respiratory rate Body temperature Systolic blood pressure Diastolic blood pressure Provider Name and Address Organization Details Last Updated DateTime 3 168.91 cm 22.3 kg/m2 89177.9 3 g 5 99 % 99 % 104 /min 20 /min 98.2 [degF] 104 mm[Hg] 70 mm[Hg] TONYA MICHELLE PA - [facility] 3 12:00:10 Date Recorded Body height Body mass index (BMI) Body weight Pain severity - 0-10 verbal numeric rating [Score] - Reported Provider Name and Address Organization Details Last Updated DateTime 01/07/2023 168.91 cm 22.3 kg/m2 74641.93 g 7 TONYA MICHELLE PA - [facility] 01/07/2023 10:37:32 Social History Question Answer Notes LastModified by Organizat ion Details LastModified Time Tobacco Smoking Status Never Smoker TONYA salas PA - [facility] 12/31/2022 11:57:26 What Is Your Level Of Alcohol Consumption? None Information not available 12/31/2022 Are You Currently Employed? Yes Information not available 06/19/2024 Have You Had A Flu Shot This Season? No [email or web address] Information not available 04/18/2024 What Is Your Water Source? City Information not available 06/19/2024 What Is Your Heat Source? Other Information not available 06/19/2024 Have You Had Direct Contact, Or Contact During Intimacy, With Monkeypox Rash, Scabs, Or Body Fluids From A Person With Monkeypox? No [email or web address] Information not available 04/03/2024 What Was The Date Of Your Most Recent Tobacco Screening? 04/18/2024 [email or web address] Information not available 04/18/2024 Are You Passively [...] SNOMED-CT Code Diagnosis ICD10 Code Diagnosis Note [id number] [address] [facility] [address] 03/10/2019 15:42:30 03/10/2019 17:32:00 [id number] [address] [facility] [place] [address] 01/26/2022 10:49:30 01/26/2022 12:09:11 [id number] [address] [facility] [place] [address] 07/21/2021 11:45:18 07/21/2021 15:15:57 [id number] [address] [facility] [place] [address] 12/26/2019 08:04:10 12/26/2019 08:36:06 [id number] [address] [facility] [place] [address] 06/11/2022 18:25:04 06/11/2022 19:35:13 [id number] Alessia Mead MD [address] [facility] [place] [address] 12/31/2022 11:33:22 12/31/2022 13:09:21 Acute pharyngitis 709194442 J02.9 Acute conj unctivitis of left eye 5472737801 93549 H10.32 [id number] Alessia Mead MD [address] [facility] [address] [facility] [place] [address] 01/07/2023 10:17:20 01/07/2023 12:01:17 Left without being seen 6430479080 9102 Z53.21 [id number] Deacon Evans DO [address] [facility] [address] [facility] [place] [address] 04/03/2024 09:21:52 04/03/2024 10:13:05 Otitis externa of left ear 4642832123 759761 H60.92 See pcp in 3-4 days or return to urgent care in 3-4 days if cant be seen by pcp for follow up. Go to ER if anything worsens. Otc tylenol as needed for pain. Symptomati c treatment. All of patients questions have been answered. Patient has understand ing and agreement of all of this. Acute left otitis media 156917167 H66.92 pt is rx zpak. sx tx. slight erythema to left tm [id number] [facility] [address] [facility] [address] [facility] [place] [address] 04/18/2024 08:23:00 04/18/2024 09:23:34 Otalgia of left ear 1849250869 H92.02 [id number] Boyd Dodge NP [address] [facility] [address] [facility] [place] [address] 06/19/2024 08:40:12 06/19/2024 09:15:56 Acute serous otitis media of bilateral ears 9624163920 529140 H65.03 You have been diagnosed with a [...] antibiotic resistance . Thank you for using [facility] today - and don't hesitate to contact our office if you have any concerns or questions. Bilateral earache 251262 003 H92.03 Health Concerns Section Related Observation LastModified by Organization Detai ls LastModified Time None Recorded Concern Status LastModified by Organization Details LastModified Time None Recorded Advance Directives Directive None Recorded Payers Encounter Date Sequence Insurance Name Policy Number Policy [place] Covered Member ID [place] Member ID Guarantor Name 12/31/2022 1 [facility] [place] [employer] (MEDICAID HMO) [employer] Lismarie Dykes [id number] Lismarie Dykes 01/07/2023 1 [facility] PL[facility] (MEDICAID HMO) [employer] Lismarie Dykes [id number] Lismarie Dykes 04/03/2024 1 [facility] PL[facility] (MEDICAID HMO) [employer] Lismarie Dykes [id number] Lismarie Dykes 04/18/2024 1 [facility] PL[facility] (MEDICAID HMO) [employer] Lismarie Dykes [id number] Lismarie Dykes 06/19/2024 1 [facility] NET PLAN (MEDICAID HMO) [employer] Lismarie Dykes [id number] Lismarie Dykes Notes Date Note Type Note [...] from her ears. Alessia Mead MD [address] [place], [address], [place] - [facility] 01/01/2023 13:02:57 04/03/20 24 text/htm l hx of multiple ear infections in past. follows ent for this. has now left ear pain for the past 4 days. getting worse. no trauma. no fevers. no hearing loss. other uri sx. no chance she is pregant or nursing. Deacon Evans DO [address] [place], [address], [place] [employer] [facility] 04/03/2024 11:57:32 04/18/20 24 text/htm [...] ciprodex [facility] No [address] [place], [address], [place] - [facility] 04/18/2024 09:22:30 06/19/20 [...] Symptoms:Cough;nasal congestion;nasal discharge Boyd Dodge NP [address] [place], [address], [place] - [facility] 06/19/2024 09:11:50 OBGyn Episode No OBEpisode recorded.
--- OUTSIDE RECORDS SUMMARY | 2024-12-07 11:53 | XMS_ITS | Clinical Summary ---
Author Organization [facility] Address [address] [place] [address] Care Team Providers Care [employer]icon[employer] Processor Name Role Phone Wendi Toney MD Primary Care Provider Social History Tobacco Use Types Packs/Day Years [...] age to complete this topic Care Teams [employer] Processor Relationship Specialty Start Date End Date Wendi Toney MD [address] [facility] [place] [address] PCP - General Internal Medicine 08/31/20
--- OUTSIDE RECORDS SUMMARY | 2024-12-07 11:53 | XMS_ITS | Encounter Summary ---
Author Organization [facility] Address [address] [place] [address] Care Team Providers Care Laboratory Courier Name Role Phone Ho Araya MD Primary Care Provider [phone] Encounter Details Date Type Department Care Team (Late st Contact Info) Description 11/08/2024 Telephone Gastroenterology - [place] [address] [facility] [address] [facility] [address] [place] [address] Christos Blackwell PA [address] [place] [address] Social History Tobacco Use Types Packs/Day Years [...] 2:15 PM EDT Office Visit Orthopedic Surgery [facility] [address] [address] Diaz Galeana, DPM [address] [address] 05/02/2025 10:30 AM EDT Office Visit [facility] Hematology Oncology [address] [place] [address] Clotilde Lux, [address] [place] [address] documented as of this encounter Visit Diagnoses Not on filedocumented in this encounter Care Teams Laboratory Courier Relationship Specialty Start Date End Date Ho Araya MD [address] [place] [address] PCP - General Internal Medicine 07/25/15 documented as of this encounter
--- OUTSIDE RECORDS SUMMARY | 2024-12-07 11:54 | XMS_ITS | Data Portability ---
Author Organization [place] - [facility], Allergy Address [address] [address] Care Team Providers Care Transformer Builder Name Role Phone MCKENZIEMARLYN PANCHAL Primary Care Provider [phone] Assessment Encounter Date Assessment Date Assessment LastModified [...] Time Details Appointments Test Results 15 2024 11:30A M MARY SCHREIBER PA-C Not available Not [...] >100. 00 Very High Not Available [facility] ([facility]) [address] [place], [address], 10/29/2024 23:16:49 10/28/20 24 10/29/2024 ALLER GENS, ZONE 1 G191-AsT D pteronyssinu s 0.16 kU/L class 0/I abnormal Not Available [facility] ([facility]) [address] [place], [address], 10/29/2024 23:16:49 10/28/20 24 10/29/2024 ALLER GENS, ZONE 1 J450-UkL D farinae 0.12 kU/L class 0/I abnormal Not Available [facility] ([facility]) [address] [place], [address], 10/29/2024 23:16:49 10/28/20 24 10/29/2024 ALLER GENS, ZONE 1 O320-NlT CAT dander 0.12 kU/L class 0/I abnormal Not Available [facility] ([facility]) [address] [place], [address], 10/29/2024 23:16:49 10/28/20 24 10/29/2024 ALLER GENS, ZONE 1 L215-ClQ dog dander 5.14 kU/L class IV abnormal Not Available [facility] ([facility]) [address] [place], [address], 10/29/2024 23:16:49 10/28/20 24 10/29/2024 ALLER GENS, ZONE 1 u463-PsQ bermuda grass <0.10 kU/L class 0 Not Available [facility] ([facility]) [address] [place], [address], 10/29/2024 23:16:49 10/28/20 24 10/29/2024 ALLER GENS, ZONE 1 a341-PmP bluegrass, k[place] <0.10 kU/L class 0 Not Available [facility] ([facility]) [address] [place], [address], 10/29/2024 23:16:49 10/28/20 24 10/29/2024 ALLER GENS, ZONE 1 h098-AbV bahia grass <0.10 kU/L class 0 Not Available [facility] ([facility]) [address] [place], [address], 10/29/2024 23:16:49 10/28/20 24 10/29/2024 ALLER GENS, ZONE 1 Y212-ZvD cockroach, gambian 0.10 kU/L class 0/I abnormal Not Available [facility] ([facility]) [address] [place], [address], 10/29/2024 23:16:49 10/28/20 24 10/29/2024 ALLER GENS, ZONE 1 X822-IhP penicillium chrysogen <0.10 kU/L class 0 Not Available [facility] ([facility]) [address] [place], [address], 10/29/2024 23:16:49 10/28/20 24 10/29/2024 ALLER GENS, ZONE 1 S905-PzU cladosporium herbarum <0.10 kU/L class 0 Not Available [facility] ([facility]) [address] [place], [address], 10/29/2024 23:16:49 10/28/20 24 10/29/2024 ALLER GENS, ZONE 1 F942-RyO aspergillus fumigatus <0.10 kU/L class 0 Not Available [facility] ([facility]) [address] [place], [address], 10/29/2024 23:16:49 10/28/20 24 10/29/2024 ALLER GENS, ZONE 1 O717-ZcJ mucor racemosus <0.10 kU/L class 0 Not Available [facility] ([facility]) [address] [place], [address], 10/29/2024 23:16:49 10/28/20 24 10/29/2024 ALLER GENS, ZONE 1 Z632-EjP alternaria alternata <0.10 kU/L class 0 Not Available [facility] ([facility]) [address] [place], [address], 10/29/2024 23:16:49 10/28/20 24 10/29/2024 ALLER GENS, ZONE 1 R863-MbT stemphylium herbarum <0.10 kU/L class 0 Not Available [facility] ([facility]) [address] [place], [address], 10/29/2024 23:16:49 10/28/20 24 10/29/2024 ALLER GENS, ZONE 1 E671-DnP common silver birch 3.39 kU/L class III abnormal Not Available [facility] ([facility]) [address] [place], [address], 10/29/2024 23:16:49 10/28/20 24 10/29/2024 ALLER GENS, ZONE 1 C512-FgA oak, white 10.60 kU/L class IV abnormal Not Available [facility] ([facility]) [address] [place], [address], 10/29/2024 23:16:49 10/28/20 24 10/29/2024 ALLER GENS, ZONE 1 A698-UnL elm, gambian <0.10 kU/L class 0 Not Available [facility] ([facility]) [address] [place], [address], 10/29/2024 23:16:49 10/28/20 24 10/29/2024 ALLER GENS, ZONE 1 X512-RlK samira, white <0.10 kU/L class 0 Not Available [facility] ([facility]) [address] [facility], [place], [address], 10/29/2024 23:16:49 10/28/20 24 10/29/2024 ALLER GENS, ZONE 1 R786-LoS maple/box elder 0.23 kU/L class 0/I abnormal Not Available [facility] ([facility]) [address] [facility], [place], [address], 10/29/2024 23:16:49 10/28/20 24 10/29/2024 ALLER GENS, ZONE 1 W096-PxF hazelnut tree 1.25 kU/L class II abnormal Not Available [facility] ([facility]) [address] [facility], [place], [address], 10/29/2024 23:16:49 10/28/20 24 10/29/2024 ALLER GENS, ZONE 1 X897-VwV hickory, white 0.13 kU/L class 0/I abnormal Not Available [facility] ([facility]) [address] [facility], [place], [address], 10/29/2024 23:16:49 10/28/20 24 10/29/2024 ALLER GENS, ZONE 1 X308-MvQ white mulberry <0.10 kU/L class 0 Not Available [facility] ([facility]) [address] [facility], [place], [address], 10/29/2024 23:16:49 10/28/20 24 10/29/2024 ALLER GENS, ZONE 1 X483-XaJ cedar, mountain <0.10 kU/L class 0 Not Available [facility] ([facility]) [address] [facility], [place], [address], 10/29/2024 23:16:49 10/28/20 24 10/29/2024 ALLER GENS, ZONE 1 L772-PgB ragweed, short <0.10 kU/L class 0 Not Available [facility] ([facility]) [address] [facility], [place], [address], 10/29/2024 23:16:49 10/28/20 24 10/29/2024 ALLER GENS, ZONE 1 P593-OnQ mugwort <0.10 kU/L class 0 Not Available [facility] ([facility]) [address] [facility], [place], [address], 10/29/2024 23:16:49 10/28/20 24 10/29/2024 ALLER GENS, ZONE 1 Q774-RlE plantain, faroese <0.10 kU/L class 0 Not Available [facility] ([facility]) [address] [facility], [place], [address], 10/29/2024 23:16:49 10/28/20 24 10/29/2024 ALLER GENS, ZONE 1 F023-OdO pigweed, common <0.10 kU/L class 0 Not Available [facility] ([facility]) [address] [facility], [place], [address], 10/29/2024 23:16:49 10/28/20 24 10/29/2024 ALLER GENS, ZONE 1 B186-UwW sheep sorrel <0.10 kU/L class 0 Not Available [facility] ([facility]) [address] [facility], [place], [address], 10/29/2024 23:16:49 10/28/20 24 10/29/2024 ALLER GENS, ZONE 1 Z373-PvH nettle <0.10 kU/L class 0 Not Available [facility] ([facility]) [address] [facility], [place], [address], 10/29/2024 23:16:49 10/28/20 24 10/29/2024 FOOD ALLER GY PROFI LE J225-BoM egg white 0.21 kU/L class 0/I abnormal Not Available [facility] ([facility]) [address] [place], [address], 10/29/2024 23:16:50 10/28/20 24 10/29/2024 FOOD ALLER GY PROFI LE K282-QaD peanut <0.10 kU/L class 0 Not Available [facility] ([facility]) [address] [place], [address], 10/29/2024 23:16:50 10/28/20 24 10/29/2024 FOOD ALLER GY PROFI LE O942-QkB soybean <0.10 kU/L class 0 Not Available [facility] ([facility]) [address] [place], [address], 10/29/2024 23:16:50 10/28/20 24 10/29/2024 FOOD ALLER GY PROFI LE T517-JsT milk 0.66 kU/L class II abnormal Not Available [facility] ([facility]) [address] [place], [address], 10/29/2024 23:16:50 10/28/20 24 10/29/2024 FOOD ALLER GY PROFI LE M532-AaJ clam <0.10 kU/L class 0 Not Available [facility] ([facility]) [address] [place], [address], 10/29/2024 23:16:50 10/28/20 24 10/29/2024 FOOD ALLER GY PROFI LE Y090-NpB shrimp 0.10 kU/L class 0/I abnormal Not Available [facility] ([facility]) [address] [place], [address], 10/29/2024 23:16:50 10/28/20 24 10/29/2024 FOOD ALLER GY PROFI LE H645-NyQ walnut <0.10 kU/L class 0 Not Available [facility] ([facility]) [address] [place], [address], 10/29/2024 23:16:50 10/28/20 24 10/29/2024 FOOD ALLER GY PROFI LE K683-TyG codfish <0.10 kU/L class 0 Not Available [facility] ([facility]) [address] [place], [address], 10/29/2024 23:16:50 10/28/20 24 10/29/2024 FOOD ALLER GY PROFI LE Z543-ByF scallop <0.10 kU/L class 0 Not Available [facility] ([facility]) [address] [facility], [place], [address], 10/29/2024 23:16:50 10/28/20 24 10/29/2024 FOOD ALLER GY PROFI LE L744-NgK wheat <0.10 kU/L class 0 Not Available [facility] ([facility]) [address] [facility], [place], [address], 10/29/2024 23:16:50 10/28/20 24 10/29/2024 FOOD ALLER GY PROFI LE D275-PgL corn <0.10 kU/L class 0 Not Available [facility] ([facility]) [address] [place], [address], 10/29/2024 23:16:50 10/28/20 24 10/29/2024 FOOD ALLER GY PROFI LE M811-FvX sesame seed <0.10 kU/L class 0 Not Available [facility] ([facility]) [address] [place], [address], 10/29/2024 23:16:50 10/28/20 24 10/29/2024 IMMUN OGLOB ULIN E, TOTAL immunoglobul in E, total 81 IU/mL 6-495 Not Available [facility] ([facility]) [address] [place], [address], 10/29/2024 23:16:50 06/23/20 24 03/18/2024 imagi ng/di agnos tic resul t No observ ation record ed. [email or web address] Not Available 21:06:53 08/06/20 24 audio gram No observ ation record ed. [email or web address] Not Available 2023 15:00:15 08/27/20 24 audio gram No observ ation record ed. [email or web address] Not Available 08/04 11:42:10 Result Notes None recorded. Problems Name Problem SNOMED Code Status Onset Date Resolution Date Notes Provider Name and Address Organization Details Recorded Time Chronic pharyngit is 637833 Active 2016 Chronic sore throat; Note: Date Diagnosed : 11/08/2016 2:47 PM (J31.2) Not Available [facility] 4 02:30:50 Gastroeso phageal reflux disease without esophagit is 835506652 Active 2016 Gastro-es ophageal reflux disease without esophagit is; Note: Date Diagnosed : 11/08/2016 2:47 PM (K21.9) Not Available [facility] 4 02:30:44 Mass of neck 504115020 Active 2014 Localized swelling, mass and lump, neck; Note: Date Diagnosed : 5 5:39 AM (R22.1) Not Available [facility] 4 02:30:45 Neck swelling 963034735 Active 2014 Localized swelling, mass and lump, neck; Note: Date Diagnosed : 5 5:39 AM (R22.1) Not Available [facility] 4 02:30:45 Lesion of oral mucosa 35573213840 42640 Active 2016 Other lesions of oral mucosa; Note: Date Diagnosed : 11/08/2016 2:53 PM (K13.79) Not Available [facility] 4 02:31:01 Tinnitus of left ear 32417324546 06 Active 2023 LAVONNE RODRIGUEZ MD [address] [place] [address], [place], [address] , [facility] - [facility] 4 11:32:24 Migraine 92608474 Active 2023 LAVONNE RODRIGUEZ MD [address], [place], [address] , [place] [facility] 4 11:32:34 Pharyngea l dysphagia 54192744307 105 Active 2023 LAVONNE RODRIGUEZ MD [address], [place], [place], [address] , [place] - [facility] 4 11:32:47 Abnormal auditory perceptio n 86397138 Active 2023 LAVONNE RODRIGUEZ MD [address], [place], [place], [address] , [place] - [facility] 4 11:33:02 Abnormal auditory perceptio n 81625908 Active 2023 LION HEREDIA MD [address] [facility] [place],[address], [place], [address] , [place] [facility] 4 14:26:32 Neck pain 33515092 Active 2023 LION HEREDIA MD [address] [facility] [place],[address], [place], [place], [address] , [place] [facility] 4 14:26:40 Pain of left temporoma ndibular joint 84202360853 002154 Active 2023 LION HEREDIA MD [address] [facility] [place],[address], [place], [place], [address] , [place] [facility] 4 14:26:28 Posterior rhinorrhe a 49734891 Active 2023 MARY SCHREIBER PA-C [address], [place], [place], [address] , [place] [facility] 4 10:48:17 Allergic rhinitis 83395464 Active 2023 MARY SCHREIBER PA-C [address], [place], [address] , [place] [facility] 4 10:48:34 Perennial allergic rhinitis 306868841 Active 2023 PATIENCE HUIZAR, RMA [address] [facility] [place] [address], [place], [address] , [facility] - [facility] 08:39:44 Problem Notes None recorded. Procedures Surgical History Date Name Laterality Status Provider Name and Address Organization Details Recorded Time 08/27/20 24 Tympanometry (52922) completed Melodie GANN [address] [facility],[place] [address], [place], [address], [facility] - [facility] 08/27/2024 10:00:48 08/06/20 24 Air & Speech Audio with Tymps (25525, 63405 & 78064) completed SIMBA ALEGRE MA, CCC-A [address] [facility],[place] [address], [place], [address], [facility] - [facility] 08/06/2024 14:03:16 03/18/20 24 Fiberoptic Laryngoscopy (Comprehensive) completed LAVONNE SIM MD [address] [facility],[address], [address], [facility] - [facility] 03/18/2024 11:32:05 03/18/20 24 Air only Audio (99298) completed MELODIE DELCID [address] [facility],[address], [address], [facility] 03/18/2024 11:52:00 03/18/20 24 SRT & Speech Recognition (00314) completed MELODIE DELCID [address] [facility],[place] [address], [place], [address], [facility] 03/18/2024 11:52:17 11/03/19 18 removal of sebaceous cyst completed Rizwan Castillo [facility] 03/18/2024 11:23:09 11/03/19 17 Breast augmentation w/implt completed Rizwan Castillo [facility] 03/18/2024 11:23:46 therapeutic cervical epidural injection completed LAVONNE SIM MD [address] [facility],[address], [address], [facility] - [facility] 03/18/2024 11:24:17 Imaging Results Imaging Date Name Status LastModified by [facility]iz [facility] Details LastModified Time 03/18/2024 imaging/diagno stic result completed [email or web address] Information not available 06/23/2024 21:06:53 08/06/2024 audiogram completed [email or web address] Information no t available 08/06/2024 15:00:15 08/27/2024 audiogram completed Information n ot available 08/27/2024 11:42:10 Procedure Notes None recorded. Medical Equipment None Reported. Allergies Allergen ID Allergen Name Allergen Category Reaction Reaction Severity Criticality Documentation Date Start Date Code Code System Note Provider Name and Address Organization Details Recorded Time 78044 penicilli n V potassium medicatio n other Not available Not available 03/16/202426876 5 RxNorm React ion: unkno wn, unspe cifie d;; Not Available [facility] 00:54:41 Medications Name Sig Start [...] Not Available Not Available No t Available Monica-Lanta 200 mg-200 mg-20 mg/5 mL oral suspension TAKE 15 ML BY MOUTH 4 (FOUR) TIMES A DAY (BEFORE MEALS AND NIGHTLY) FOR 7 DAYS. active Not Available Not Available No [...] Not Available Not Available No t Available chlorhexid ine gluconate 0.12 % mouthwash PLEASE SEE ATTACHED FOR DETAILED DIRECTION S active Not Available Not Available No t Available sodium fluoride 1.1 % dental paste USE DIRECTED. TWICE DAILY active Not Available Not Available No t Available sodium fluoride 1.1 %-potassiu m nitrate 5 % dental paste USE 2-3X/PENNY Y, SPIT OUT EXCESS. DO NOT RINSE WITH WATER. NO EATING OR DRINKING FOR 45 MIN AFTER active Not Available Not Available No t Available quetiapine 50 mg tablet TAKE 1 TABLET BY MOUTH EVERY DAY NEEDED active Not Available Not Available No t Available levocetiri zine 5 mg tablet TAKE 1 TABLET (ORAL) EVERY EVENING FOR 90 DAYS active Not Available Not Available No t Available omeprazole 20 mg tablet,del ayed release 1 tablet 2016 active Medicatio n ID: [id number] Pr escribed By Name: Colleen Joseph MD [...] Available lidocaine 5 % topical ointment APPLY TO AFFECTED AREA TWICE A DAY active Not Available Not Available No t Available Linzess 145 mcg capsule TAKE 1 CAPSULE BY MOUTH EVERY DAY active Not Available Not Available No t Available riboflavin (vitamin B2) 400 mg tablet active Not Available Not Available Not Available Nurtec ODT 75 mg disintegra ting tablet TAKE 1 TABLET ON THE TONGUE AND ALLOW TO DISSOLVE FOR 30 DAY(S) active Not Available Not Available No t Available Vitals Date Recorded Body height Body mass index (BMI) Body weight Provider Name and Address Organization Details Last Updated DateTime 05/07/2024 167.64 cm 20.7 kg/m2 54920.82 g Kike Casanova [place] [facility] 05/07/2024 14:00:00 Date Recorded Body height Body mass index (BMI) Body weight Provider Name and Address Organization Details Last Updated DateTime 08/06/2024 167.64 cm 19.4 kg/m2 31150.08 g Rizwan Castillo [place] [facility] 08/06/2024 14:18:43 Date Recorded Body height Body mass index (BMI) Body weight Provider Name and Address Organization Details Last Updated DateTime 08/27/2024 167.64 cm 19.4 kg/m2 48801.08 g Kike Casanova [place] [facility] 08/27/2024 09:35:59 Date Recorded Body height Body mass index (BMI) Body weight Provider Name and Address Organization Details Last Updated DateTime 03/18/2024 167.64 cm 20.7 kg/m2 16239.82 g Rizwan Castillo [facility] 03/18/2024 11:21:57 Social History Question Answer Notes LastModified by Organizat ion Details LastModified Time Tobacco Smoking Status Never Smoker Rizwan salas [facility] 03/18/2024 11:22:25 What Is Your Level Of Alcohol Consumption? None Information not available 03/18/2024 Do You Use Any Illicit Or Recreational Drugs? No Information not available 03/18/2024 Do You Or Have You Ever Used Any Other Forms Of Tobacco Or Nicotine? No [email or web address] Information not available 03/18/2024 Sex: Unknown Functional Status None recorded. Mental Status None recorded. Family History Nothing Reported. Medical History Condition Response Allergies/Hayfever Y Anesthesia Complications N Heart Problems N Hyperlipidemia N Arthritis N Anxiety N Asthma Y High Cholesterol N Gynecological HistoryNo gynecological history recorded. Obstetrics History GPAL:G 0 P 0 0 0 0 Past Encounters Encounter ID Performer Location Encounter Start Date Encounter Closed Date Diagnosis/Indication Diagnosis SNOMED-CT Code Diagnosis ICD10 Code Diagnosis Note [id number] LAVONNE RODRIGUEZ MD [facility] [address] [address] 03/18/2024 11:13:52 03/18/2024 12:02:33 Tinnitus of left ear 6679058582 106 H93.12 Hearing within normal limits AU.Type A tympanogra ms AU. Migraine 92762111 G43.90 9 Pharyngeal dysphagia 131 8238564 9105 R13.13 She notes a sensation of randomly having a cough with saliva or fluids. Transnasal fiberoptic laryngosco py shows normal vocal fold mobility and no masses Abnormal a uditory perception 92086543 H93.292 Patient presents with sensation of fullness, [...] about fluid in the ear Neck pain 31108564 M54.2 [id number] LION HEREDIA MD [facility] [address] [place] [address] 05/07/2024 13:53:44 05/07/2024 14:43:55 Pain of left temporomandibular joint 9707735773 7787802 M26.622 Abnormal a uditory perception 55525289 H93.292 Neck pain 63978339 M54.2 [id number] LION HEREDIA MD [facility] [address] [place] [address] 08/06/2024 13:30:04 08/06/2024 17:05:24 Abnormal auditory perception 40889188 H93.299 Audiologic al evaluation results: Right ear: [...] Cou ld not maintain a hermetic seal}} [id number] LAVONNE RODRIGUEZ MD [facility] [address] [address] 08/27/2024 09:33:34 08/27/2024 10:32:43 Abnormal auditory perception 35202854 H93.299 Tympanomet ry: Right Ear:{{Type A* Type [...] maintain a hermetic seal}} Posterior rhinorrhea 758 95843 R09.82 Allergic rhinitis 756596 04 J30.9 Health Concerns Section Related Observation LastModified by Organization Detai ls LastModified Time None Recorded Concern Status LastModified by Organization Details LastModified Time None Recorded Advance Directives Directive None Recorded Payers Encounter Date Sequence Insurance Name Policy Number Policy Toscano Covered Member ID Toscano Member ID Guarantor Name 03/18/2024 1 [facility] (MEDICAID REPLACEMENT - HMO) [place] Lismarie Dykes [id number] Lismarie Dykes 05/07/2024 1 [facility] (MEDICAID REPLACEMENT - HMO) [place] Lismarie Dykes [id number] Lismarie Dykes 08/06/2024 1 [facility] (MEDICAID REPLACEMENT - HMO) [place] Lismarie Dykes [id number] Lismarie Dykes 08/27/2024 1 [facility] (MEDICAID REPLACEMENT - HMO) MARIBELL Dykes [id number] Alondra Dykes Notes Date Note Type Note [...] causing her to cough LAVONNE SIM MD [address] [place] [address],[address], [address], [facility] - [facility] 03/18/2024 12:22:03 05/07/2024 text/html Patient on Dr. Sim recently seen 03/18/2024t that time-Patient notes that she has significant [...] choking on her saliva LION HEREDIA MD [address] [place] [address],[address], [address], [place] - [facility] 05/07/2024 14:27:55 08/06/2024 text/html 33-year-old fema le [...] Endorses occasional room-spinning dizziness. LION HEREDIA MD [address] [place] [address], [address], [facility] 08/06/2024 17:16:04 08/27/2024 text/html 33-year-old femgarry le [...] been taking Zyrtec daily. LAVONNE SIM MD [address] [place] [address], [address], [facility] 08/30/2024 12:02:43 OBGyn Episode No OBEpisode recorded.
--- OUTSIDE RECORDS SUMMARY | 2024-12-07 11:54 | XMS_ITS | Encounter Summary ---
Author Organization [facility] Address [address] [place] [address] Care Team Providers Care Disposal Man Name Role Phone Ho Araya MD Primary Care Provider Encounter Details Date Type Department Care Team (Late Contact Info) Description 09/24/2024 Lab Requisition [facility] - Main Lab [address] [facility] [place] [phone] Sergio Gross PA [address] [facility] [address] [place] [phone] Other microscopic hematuria Social History Tobacco Use [...] Department Care Team (Late Contact Info) Description 01/24/2025 2:15 PM EDT Office Visit Orthopedic Surgery - [place] [address] [phone] Diaz Galeana DPJanet [address] [address] 05/02/2025 10:30 AM EDT Office Visit [facility] Hematology Oncology [address] [place] [address] Clotilde Pool, DO [address] [place] [address] documented as of this encounter Procedures Procedure [...] clinical and pathological findings. 10/12/2024 9:06 AM [facility] Addendum electronically signed by Gaetano Fernando MD on 10/12/2024 at 9:06 AM Final Diagnosis Urine, Voided: Negative for high grade urothelial carcinoma. Note: UroVysion testing to follow. 10/12/2024 9:06 AM [facility] Clinical Information [id number], Urine cyto/urine FISH. 10/12/2024 9:06 AM [facility] Gross Description A. Urine, Voided, : [id number] recd 1 TP cyto 1 TP fish. 10/12/2024 9:06 AM [facility] Disclaimer Unless otherwise specified, all tissue is 10% NB formalin fixed and paraffin embedded. 10/12/2024 9:06 AM [facility] Tissue Urine specimen from urethra / Unknown 09/21/2024 09/24/2024 1:47 PM EST Sergio SHIRLEY LAB PATHOLOGY [facility] [address] [place] [address], documented in this encounter Visit Diagnoses Diagnosis Other microscopic hematuria documented in this encounter Care Teams Disposal Man Relationship Specialty Start Date End Date Ho Araya MD [address] [place] [phone] PCP - General Internal Medicine 07/25/15 documented as of this encounter
[2024-12-07 18:19] LABS: Estimated Average Glucose 97 mg/dL; Hemoglobin A1C 114.6741 umol/L; Total Hemoglobin (HGBA1C) 3672.1881 umol/L
[2024-12-07 18:28] LABS: Iron 116 mcg/dL (30-160); Magnesium 2.4 mg/dL (1.6-2.6); Percent Iron Saturation 39 % (15-50); Total Iron Binding Capacity 301 mcg/dL (228-428); Unsaturated Iron Binding 185 ug/dL
[2024-12-07 18:37] LABS: Ferritin 103 ng/mL (10-122); TSH reflex Free T4 0.83 uIU/mL (0.32-4.0)
[2024-12-07 18:46] LABS: Erythrocyte Sedimentation Rate 6 MM/HR (0-20)
[2024-12-07 18:59] LABS: Folate 6.3 ng/mL (> or = 4.0); Rheumatoid Factor < 13.0 IU/mL (<15.0); Vitamin B12 426 pg/mL (200-900)
[2024-12-08 08:29] LABS: HIV AB/AG Nonreactive (Nonreactive); HIV Num 1 0.05 S/CO (0.00-0.99)
[2024-12-09 14:09] LABS: Anti Nuclear Antibody Screen NEGATIVE (NEGATIVE)
[2024-12-10 18:54] LABS: Vitamin K1 222 pg/mL (130-1500)
[2024-12-11 15:52] LABS: Nicotinamide 27 ng/mL (see note); Vit B3 - Nicotinic Acid <20 ng/mL (see note)
== END 2024-12-07 10:58 | disposition home or self-care (01) ==
LOC: HO.HKASLDS 10:57
PROVIDERS: Visit Provider Nurse Practitioner Family
DX: R63.4 Abnormal weight loss (principal); R20.2 Paresthesia of skin; R29.2 Abnormal reflex; D64.9 Anemia, unspecified; R25.1 Tremor, unspecified; G90.512 Complex regional pain syndrome I of left upper limb
CPT/HCPCS: 36415; 82607; 82728; 82746; 83036; 83540; 83735; 84443; 84591; 84597; 85652; 86038; 86431; 87389

== ENCOUNTER 2024-12-13 12:01 | Outpatient (REF) | payer OTHER, SELFPAY ==
--- OUTSIDE RECORDS SUMMARY | 2024-12-13 13:14 | XMS_ITS | Clinical Summary ---
Author Organization [facility] Address [address] [place] [address] Care Team Providers Care Contact Lens Cutter Name Role Phone Ho Araya MD Primary Care Provider [phone] Allergies Active Allergy Reactions Criticality Noted Date [...] age to complete this topic Care Teams Contact Lens Cutter Relationship Specialty Start Date End Date Ho Araya MD PCP - General Internal Medicine 05/19/24
--- OUTSIDE RECORDS SUMMARY | 2024-12-13 13:14 | XMS_ITS | Clinical Summary ---
Author Organization [facility] Address [address] [place] [address] Phone Care Team Providers Care Rolled Gold Plater Name Role Phone Ho Araya MD Primary Care Provider [phone] Allergies Active Allergy Reactions Criticality Noted Date Comments Metoclopramide Hcl Other 03/30/2019 Anxiety Ibuprofen 09/13/2024 Because gastritis Penicillins Rash Medium 01/07/2012 Medications BACLOFEN ORAL Take 1 tablet (10 mg [...] (NARATRIPTAN ORAL) Take by mouth. - Oral Active ondansetron (ZOFRAN) 4 mg tablet Take by [...] as needed for sleep. - Oral Active methylPREDNIS olone (MEDROL) 4 mg tablet Sig - Route: [...] and then eat to activate the medication Active diclofenac (VOLTAREN) 1 % topical gel Apply 4 g topically 2 times daily as needed (Thigh pain). Active dicyclomine (BENTYL) 10 mg capsule Active linaCLOtide (Linzess) 145 mcg capsule Take 1 tablet by mouth 1 (one) time each day. Active promethazine (PHENERGAN) 12.5 mg tablet Take 1 tablet (12.5 mg total) by mouth every 6 (six) hours if needed. Active fluticasone propionate (FLONASE) 50 mcg/actuation nasal spray SPRAY 2 SPRAYS INTO EACH NOSTRL ONCE DAILY Active docusate sodium (COLACE) 100 mg capsule Take 1 capsule (100 mg total) by mouth 2 (two) times a day. Active senna (SENOKOT) 8.6 mg tablet Take 1 tablet (8.6 mg total) by mouth 1 (one) time each day. Active pregabalin (LYRICA) 225 mg capsule Take 1 capsule (225 mg total) by mouth 2 (two) times a day. Active baclofen (LIORESAL) 10 mg tablet Take 1 Tablet by mouth 2 times daily as needed for Other (muscle spasm, may cause sedation). Active naratriptan (AMERGE) 2.5 mg tablet Take 2.5 mg by mouth as needed. 2.5 mg at onset of headache, may repeat in 4 hours if needed Active acetaminophen (TYLENOL) 325 mg tablet TAKE 2 TABLETS BY MOUTH EVERY 6 HOURS NEEDED FOR FEVER/MILD PAIN SCALE 1 3 020 Active polyethylene glycol (PEG) 17 gram/dose oral powder Sig: DISSOLVE 17 GRAMS INTO WATER AND DRINK BY MOUTH EVERY DAY Sent to pharmacy as: Polyethylene Glycol 3350 17 GM/SCOOP Oral Powder (GLYCOLAX) Active ascorbic acid (VITAMIN C) 500 mg tablet Take 1 tablet (500 mg total) by mouth 2 (two) times a day. 60 each 2 024 2024 Active pantoprazole (PROTONIX) 40 mg EC tablet Take 1 tablet (40 mg total) by mouth 2 (two) times a day. Take on empty stomach, wait 30 mins and then eat to activate the medication- before breakfast and supper 60 each 11 024 2024 Active sucralfate (CARAFATE) 100 mg/mL suspension Take 10 mL (1 g total) by mouth 4 (four) times a day (with meals and nightly). Take 1 hour before meals and at bedtime 1200 mL 11 Active ondansetron (ZOFRAN) 8 mg tablet Take 1 tablet (8 mg total) by mouth 3 (three) times a day. 60 tablet 6 Active nutritional drink (Ensure) liquidIndicat ions:Complex regional pain syndrome type 1, affecting unspecified site,Weight loss,BMI less than 19,adult 1 bottle twice daily for weight loss / Welch Flavored 60 each Active lidocaine (XYLOCAINE) 5 % ointment Apply topically 2 (two) times a day. 35.44 g 025 Active cetirizine (ZyrTEC) 10 mg tablet TAKE 1 TABLET BY MOUTH EVERY DAY 90 tablet 1 025 Active cetirizine (ZyrTEC) 10 mg tablet Take 1 tablet (10 mg total) by mouth 1 (one) time each day. 024 2024 Discontinued Active Problems Problem Noted Date Diagnosed Date Complex regional pain syndrome type 1 08/12/2024 Vitamin D deficiency 01/21/2024 Seasonal allergies 05/30/2022 Anxiety and depression 10/22/2021 Cervical paraspinous muscle spasm 10/22/2021 Fibromyalgia 11/17/2020 Migraine 07/03/2018 Overview (08/12/2024): Seen at [facility], initial visit 09/26/2020. Nerve blocks and trigger point injections done 10/04/2020 and 01/04/2021. Acne vulgaris 08/21/2016 Asthma 01/09/2012 Encounters Date Type Department Care Team Description 11/19/2024 Telephone Internal [facility] [place] [phone] Ho Araya MD PT1 (Piero Shashank @ [facility]-Rheumatology ) 11/19/2024 Telephone [facility] [address] [place] [phone] Ho Araya MD Letter for School/Work 11/15/2024 12:57 PM EST - 11/15/2024 11:59 PM EST Hospital Encounter [facility] Ultrasound [address] [place] [phone] Cervicalgia Discharge Disposition: Home or Self Care 11/09/2024 [facility] [address] [place] [phone] Ho Araya MD faxed refill 11/08/2024 Telephone Gastroenterology - [place] 175 [facility] [address] [phone] Christos Blackwell PA 10/29/2024 11:11 AM EST - 10/29/2024 11:59 PM EST Hospital Encounter [facility] CT Scan [address] [place] [phone] Decreased appetite; Epigastric pain; Nausea; Irritable bowel syndrome, unspecified type Discharge Disposition: Home or Self Care 10/13/2024 Telephone [facility] Hematology Oncology [address] [place] [phone] Clotilde Lux, DO Referral 10/12/2024 10:30 AM EST Office Visit [facility] Hematology Oncology [address] [place] [phone] Clotilde Lux DO Leukopenia, unspecified type (Primary Dx); Bruising 10/11/2024 Telephone [facility] - [facility] [address] [place] [address] Ho Araya MD Abdominal Pain 09/27/2024 10:40 AM EST Office Visit Gastroenterology [facility] 175 [facility] 175 [facility] [address] [place] [phone] Christos Blackwell PA Decreased appetite (Primary Dx); Epigastric pain; Nausea; Irritable bowel syndrome, unspecified type 09/27/2024 Telephone Gastroenterology [facility] 175 [facility] 175 [facility] [address] [place] [phone] Christos Blackwell PA 09/27/2024 Telephone [facility] [phone] Ho Araya MD Fitting for DME ([facility] 09/24/2024 Lab Requisition [facility] - Main Lab 299 [facility] [place] [phone] Sergio Gross PA Other microscopic hematuria 09/22/2024 9:15 AM EST Office Visit Orthopedic Surgery [facility] 250 175 [facility] 250 [place] [address] Diaz Galeana, DPM Fibromyalgia (Primary Dx); Complex regional pain syndrome type 1, affecting unspecified site 09/20/2024 Telephone Internal Medicine - [address] [phone] Ho Araya MD DME Request ( Mariel (boost)) 09/17/2024 [facility] [address] [place] [address] Ho Araya MD Fitting for DME 09/14/2024 Telephone Internal Medicine - [facility] [address] [place] [phone] Ho Araya MD DME REQUEST 09/13/2024 10:45 AM EST Office Visit [facility] - [facility] [address] [place] [phone] Zhen Dumont PA Complex regional pain syndrome type 1, affecting unspecified site (Primary Dx); Tachycardia; Dysuria; Burning sensation of female pelvis 09/13/2024 Telephone [facility] [address] [place] [phone] Meggan Mcbride [place] Request For Order(s) 09/13/2024 Telephone [facility] [address] [place] [phone] Zhen Dumont PA Media Services Specialist Feedback from Last 3 Months Immunizations Name Administration [...] Migraines 07/03/2018 DX:Migraines; CO MMENT: Seen at [facility], initial visit 09/26/2020. Nerve [...] drink = 0.6 oz pur e alcohol) Comments No Sex and Gender Information Value Date Recorded Sex Assigned at Not on file Legal Sex Female 5:35 PM EST Gender Identity Not on file Sexual Orientation Not on file Obstetrics History Last Filed [...] Orthopedic Surgery [facility] [address] [phone] Diaz Galeana, DPJanet [address] [address] 05/02/2025 10:30 AM EDT Office Visit [facility] Hematology Oncology [address] [place] [phone] Clotilde Lux, DO [address] [place] [address] Health Maintenance Due Date Last Done Comments Hepatitis B Vaccines (1 of 3 - 19+ 3-dose series) 2011 Pneumococcal Vaccine: Pediatrics (0 to 5 Years) and At-Risk Patients (6 to 64 Years) (1 of 2 - PCV) 2011 Cervical Cancer Screening: Pap Smear 2013 [...] patient's age to complete this topic Meningococcal B Vacine Aged Out No lo nger eligible based on patient's age to complete [...] Signed Date: 11/23/2024 08:29 ET Workstation ID: [id number] Transcribed By: Self Edit Transcribed Date: 11/23/2024 [...] Signed Date: 11/23/2024 08:29 ET Workstation ID: [id number] Transcribed By: Self Edit Transcribed Date: 11/23/2024 08:27 ET us Piero SHIRLEY IMG US PROCEDURES Final Res ult * CT Abdomen Pelvis w Contrast (10/29/2024 11:35 AM EST) Anatomical Region Laterality Modality Body Computed Tomogra phy 11/01/2024 4:12 PM EST Impressions 11/01/2024 4:20 PM EST Impression: 1. 3 mm nonobstructing left renal calculus, unchanged. 2. Trace free fluid in the pelvis, most likely physiologic in a patient of this age. 3. IUD well-positioned. Telerad PA ([id number]) -------- FINAL REPORT -------- Dictated By: Patrica Ramirez Dictated Date: 11/01/2024 16:12 ET Assigned Physician: Patrica Ramirez Reviewed and Electronically Signed By: Patrica Ramirez Signed Date: 11/01/2024 16:20 ET Workstation ID: [id number] Transcribed By: Self Edit Transcribed Date: 11/01/2024 16:12 ET Narrative 11/01/2024 4:20 PM EST History: Epigastric pain. Early satiety. Comparison: 01/22/24 Technique: Helical volumetric imaging of the abdomen and pelvis was performed following oral contrast and during the uneventful intravenous administration of 90 cc Isovue-370. DLP: 379.35 mGy/cm zweitgeistT Iterative reconstruction technique Findings: Bilateral augmentation mammoplasty [...] of 90 cc Isovue-370. DLP: 379.35 mGy/cm CrowdOptic VCT Iterative reconstruction technique Findings: Bilateral augmentation [...] a patient ofthis age. 3. IUD well-positioned. [employer] FERN ([id number]) -------- FINAL REPORT -------- Dictated By: Patrica Ramirez Dictated Date: 11/01/2024 16:12 ET Assigned Physician: Patrica Ramirez Reviewed and Electronically Signed By: Patrica Ramirez Signed Date: 11/01/2024 16:20 ET Workstation ID: [id number] Transcribed By: Self Edit Transcribed Date: 11/01/2024 16:12 ET us Christos SHIRLEY IMG CT PROCEDURES Final Result * MARIE IFA with titer and pattern (10/11/2024 1:49 PM EST) [facility] MARIE Negative Negative 10/13/2024 2:16 PM EST [facility] Blood Venous blood specimen / Unknown Venipuncture / Unknown 10/11/2024 1:49 PM EST 10/11/2024 4:46 PM EST Clotilde Lux DO LAB BLOOD ORDERABLES Final Result [facility] [address] [place] [address], [place] [phone] * (ABNORMAL) CBC auto differential (10/11/2024 1:49 PM EST) Only the most recent of2 resultswithin the time period is included. [facility] WBC 9.4 4.8 - 10.8 K/mcL LAB HEMETOLOGY METHOD 10/11/2024 5:15 PM [facility] RBC 4.40 3.80 - 4.80 M/mcL LAB HEMETOLOGY METHOD 10/11/2024 5:15 PM [facility] Hemoglobin 13.2 11.5 - 16.0 g/dL LAB HEMETOLOGY METHOD 10/11/2024 5:15 PM [facility] Hematocrit 42.3 35.0 - 47.0 % LAB HEMETOLOGY METHOD 10/11/2024 5:15 PM [facility] MCV 97.0 79.0 - 98.0 FL LAB HEMETOLOGY METHOD 10/11/2024 5:15 PM [facility] MCH 30.3 27.0 - 32.0 pcg LAB HEMETOLOGY METHOD 10/11/2024 5:15 PM [facility] MCHC 31.2(L) 32.0 - 37.0 g/dL LAB HEMETOLOGY METHOD 10/11/2024 5:15 PM [facility] RDW 13.0 11.0 - 15.0 % LAB HEMETOLOGY METHOD 10/11/2024 5:15 PM [facility] Platelets 275 130 - 400 K/mcL LAB HEMETOLOGY METHOD 10/11/2024 5:15 PM [facility] MPV 10.6 7.0 - 11.0 FL LAB HEMETOLOGY METHOD 10/11/2024 5:15 PM [facility] NRBC 0.0 <1.0 % LAB HEMETOLOGY METHOD 10/11/2024 5:15 PM [facility] NRBC Absolute 0.00 <0.10 K/mcL LAB HEMETOLOGY METHOD 10/11/2024 5:15 PM [facility] Neutrophils Relative 79.5 % LAB HEMETOLOGY METHOD 10/11/2024 5:15 PM [facility] Lymphocytes Relative 13.3 % LAB HEMETOLOGY METHOD 10/11/2024 5:15 PM [facility] Monocytes Relative 6.1 % LAB HEMETOLOGY METHOD 10/11/2024 5:15 PM [facility] Eosinophils Relative 0.3 % LAB HEMETOLOGY METHOD 10/11/2024 5:15 PM [facility] Basophils Relative 0.3 % LAB HEMETOLOGY METHOD 10/11/2024 5:15 PM [facility] Immature Granulocytes Relative 0.5 % LAB HEMETOLOGY METHOD 10/11/2024 5:15 PM [facility] Neutrophils Absolute 7.47(H) 1.50 - 7.00 K/mcL LAB HEMETOLOGY METHOD 10/11/2024 5:15 PM [facility] Lymphocytes Absolute 1.25 1.00 - 5.00 K/mcL LAB HEMETOLOGY METHOD 10/11/2024 5:15 PM EST [facility] Monocytes Absolute 0.57 0.20 - 1.00 K/[facility] LAB HEMETOLOGY METHOD 10/11/2024 5:15 PM EST [facility] Eosinophils Absolute 0.03 0.00 - 0.50 K/[facility] LAB HEMETOLOGY METHOD 10/11/2024 5:15 PM EST [facility] Basophils Absolute 0.03 0.00 - 0.20 K/[facility] LAB HEMETOLOGY METHOD 10/11/2024 5:15 PM EST [facility] Immature Granulocytes Absolute 0.05(H) 0.00 - 0.03 K/[facility] LAB HEMETOLOGY METHOD 10/11/2024 5:15 PM EST [facility] Blood Venous blood specimen / Unknown Venipuncture / Unknown 10/11/2024 1:49 PM EST 10/11/2024 4:47 PM EST Clotilde Lux DO LAB BLOOD ORDERABLES Final Result [facility] [address] [place] [address], [place] [phone] * Sedimentation rate (10/11/2024 1:49 PM EST) Sed Rate 4 0 - 20 mm/hr LAB HEMETOLOGY METHOD 10/11/2024 5:34 PM EST [facility] Blood Venous blood specimen / Unknown Venipuncture / Unknown 10/11/2024 1:49 PM EST 10/11/2024 4:47 PM EST Clotilde Lux DO LAB BLOOD ORDERABLES Final Result [facility] [address] [place] [address], [place] [phone] * Rheumatoid factor (10/11/2024 1:49 PM EST) Rheumatoid Factor <10.0 <15.0 I Unit/mL LAB CHEMISTRY METHOD 10/11/2024 9:11 PM [facility] Blood Venous blood specimen / Unknown Venipuncture / Unknown 10/11/2024 1:49 PM EST 10/11/2024 4:46 PM EST Clotilde Costellouliffe DO LAB BLOOD ORDERABLES Final Result [facility] [address] [place] [address], * Anatomic pathology outside consult (09/21/2024 12:00 AM EST) Pathologist [facility] FISH Addendum Results of UroVysion fluorescence in situ hybridization (FISH) testing: CEP3: Normal CEP7: Normal CEP17: Normal LSI 9p21: Normal Interpretation: Normal profile Controls stained appropriately. Note: The results are intended as a screening device and should be interpreted in association with other clinical and pathological findings. 10/12/2024 9:06 AM [facility] Addendum electronically signed by Gaetano Fernando MD on 10/12/2024 at 9:06 AM Final Diagnosis Urine, Voided: Negative for high grade urothelial carcinoma. Note: UroVysion testing to follow. 10/12/2024 9:06 AM [facility] Clinical Information [id number], Urine cyto/urine FISH. 10/12/2024 9:06 AM [facility] Gross Description A. Urine, Voided, : [id number] recd 1 TP cyto 1 TP fish. 10/12/2024 9:06 AM [facility] Disclaimer Unless otherwise specified, all tissue is 10% NB formalin fixed and paraffin embedded. 10/12/2024 9:06 AM [facility] Tissue Urine specimen from urethra / Unknown 09/21/2024 09/24/2024 1:47 PM EST Sergio SHIRLEY LAB PATHOLOGY ORDERABLES Edite d Result - Final [facility] [address] [place] [address], [place] [phone] * (ABNORMAL) Urinalysis with reflex microscopic and culture (09/13/2024 11:37 AM EST) Specific Fidelity Urine 1.021 1.003 - 1.030 LAB URINALYSIS - AUTOMATED METHOD 09/13/2024 2:30 PM [facility] pH, Urine >=9.0(A) 5.0 - 8.0 pH LAB URINALYSIS - AUTOMATED METHOD 09/13/2024 2:30 PM [facility] Leukocytes, Urine Negative Negative LAB URINALYSIS - AUTOMATED METHOD 09/13/2024 2:30 PM [facility] Nitrite, Urine Negative Negative LAB URINALYSIS - AUTOMATED METHOD 09/13/2024 2:30 PM [facility] Protein, Urine 30(A) <=Trace mg/dL LAB URINALYSIS - AUTOMATED METHOD 09/13/2024 2:30 PM [facility] Glucose, Urine Negative Negative mg/dL LAB URINALYSIS - AUTOMATED METHOD 09/13/2024 2:30 PM [facility] Ketones, Urine Negative Negative mg/dL LAB URINALYSIS - AUTOMATED METHOD 09/13/2024 2:30 PM [facility] Urobilinogen, Urine 1.0 0.2 - 1.0 mg/dL LAB URINALYSIS - AUTOMATED METHOD 09/13/2024 2:30 PM [facility] Bilirubin, Urine Negative Negative LAB URINALYSIS - AUTOMATED METHOD 09/13/2024 2:30 PM [facility] Blood, Urine Negative Negative LAB URINALYSIS - AUTOMATED METHOD 09/13/2024 2:30 PM [facility] RBC, Urine 4.0 0 - 4 /HPF LAB URINALYSIS - AUTOMATED METHOD 09/13/2024 2:30 PM [facility] WBC, Urine 1.9 0 - 4 /HPF LAB URINALYSIS - AUTOMATED METHOD 09/13/2024 2:30 PM [facility] Squamous Epithelial, Urine 56 0 - 60 /LPF LAB URINALYSIS - AUTOMATED METHOD 09/13/2024 2:30 PM [facility] Bacteria, Urine Few(A) Negative /HPF LAB URINALYSIS - AUTOMATED METHOD 09/13/2024 2:30 PM [facility] Hyaline Casts, Urine 2.0 0 - 3 /LPF LAB URINALYSIS - AUTOMATED METHOD 09/13/2024 2:30 PM [facility] Urine Urine specimen obtained by clean catch procedure / Unknown Non-blood Collection / Unknown 09/13/2024 11:37 AM EST 09/13/2024 11:37 AM EST Zhen SHIRLEY LAB URINE ORDERABLES Fi nal Result [facility] [address] [place] [address], * Daniels urine culture tube (09/13/2024 11:37 AM EST) Extra Tube Hold for add-ons. 09/13/2024 3:01 PM [facility] Comment:Auto resulted. Urine Urine specimen obtained by clean catch procedure / Unknown Non-blood Collection / Unknown 09/13/2024 11:37 AM EST 09/13/2024 11:37 AM EST us Zhen SHIRLEY LAB URINE ORDERABLES Fi nal Result Performing Organization Address City/[facility]/ZIP Co de Phone Number [facility] [address] [place] [address], * Thyroid stimulating hormone with reflex to free t4 and free t3 (09/13/2024 11:37 AM EST) [facility] TSH 0.61 0.40 - 4.00 mcIU/mL LAB CHEMISTRY METHOD 09/13/2024 4:26 PM EST [facility] Blood Venous blood specimen / Unknown Venipuncture / Unknown 09/13/2024 11:37 AM EST 09/13/2024 11:37 AM EST Zhen SHIRLEY LAB BLOOD ORDERABLES Fi nal Result Performing Organization Address [facility]/ZIP Co de Phone Number [facility] [address] [place] [address], [place] [phone] * Depression Screening (05/12/2024) [facility] Depression Screening abstracted Historical Provider HEALTH MAINTENANCE Final Result * Lipid panel (05/12/2024) [facility] LDL/HDL Ratio 3 0 - 4 Triglycerides 56 0 - 150 mg/dL Cholesterol 173 0 - 200 mg/dL HDL 68 >=40 mg/dL LDL Cholesterol 94 0 - 100 mg/dL Blood Venous blood specimen / Unknown Historical Provider LAB BLOOD ORDERABLES Katy l Result * Hepatitis C Screening (11/17/2020) [facility] Hepatitis C Screening abstracted Historical Provider HEALTH MAINTENANCE Final Result from Last 3 Months or Most Recently Relevant to Health Maintenance Insurance [facility] Care Teams Rolled Gold Plater Relationship Specialty Start Date End Date Ho Araya MD [address] [place] [id number] PCP - General Internal Medicine 07/25/15
--- OUTSIDE RECORDS SUMMARY | 2024-12-13 13:14 | XMS_ITS | Clinical Summary ---
Author Organization [facility] Address [address] [place] [address] Care Team Providers Care Manual Machinist Name Role Phone Wendi Toney MD Primary [...] age to complete this topic Care Teams Manual Machinist Relationship Specialty Start Date End Date Wendi Toney MD [address] [facility] [place] [address] PCP - General Internal Medicine 08/31/20
--- OUTSIDE RECORDS SUMMARY | 2024-12-13 13:15 | XMS_ITS | Encounter Summary ---
Author Organization [facility] Address [address] [place] [address] Care Team Providers Care Shipping Team Leader Name Role Phone Ho Araya MD Primary Care Provider [phone] Reason for Visit * Reason Onset Date Comments Letter for School/Work 11/19/2024 Encounter Details Date Type Department Care Team (Late st Contact Info) Description 11/19/2024 [facility] [address] [place] [phone] Ho Araya MD [address] [place] [address] Letter for School/Work Social History Tobacco Use [...] on file Sexual Orientation Not on file documented as of this encounter Progress Notes * Ho Araya MD - 11/29/2024 12:43 PM EST printed * Chayito Mxa MA - 11/22/2024 12:51 PM EST Letter pending, please sign if appropriate. * Bisi Kohli - 11/22/2024 12:33 PM EST Badge # [id number] * Chayito Max MA - 11/19/2024 1:41 [...] PM EDT Office Visit Orthopedic Surgery - [place] [address] [phone] Diaz Galeana DPM [address] [address] 05/02/2025 10:30 AM EDT Office Visit [facility] Hematology Oncology [address] [place] [phone] Clotilde Lux, DO [address] [place] [address] documented as of this encounter Visit Diagnoses Not on filedocumented in this encounter Care Teams Shipping Team Leader Relationship Specialty Start Date End Date Ho Araya MD [address] [place] [address] PCP - General Internal Medicine 07/25/15 documented as of this encounter
--- OUTSIDE RECORDS SUMMARY | 2024-12-13 13:15 | XMS_ITS | Data Portability ---
Author Organization [place] [facility], Allergy Address [address] [address] Care Team Providers Care Integrated Marketing Intern Name Role Phone MCKENZIEMARLYN PANCHAL Primary Care Provider [phone] Assessment Encounter Date Assessment Date Assessment LastModified [...] >100. 00 Very High Not Available [facility] ([facility]) [address] [place], [address], 10/29/2024 23:16:49 10/28/20 24 10/29/2024 ALLER GENS, ZONE 1 W736-AmX D pteronyssinu s 0.16 kU/L class 0/I abnormal Not Available [facility] ([facility]) [address] [place], [address], 10/29/2024 23:16:49 10/28/20 24 10/29/2024 ALLER GENS, ZONE 1 W530-OnA D farinae 0.12 kU/L class 0/I abnormal Not Available [facility] ([facility]) [address] [place], [address], 10/29/2024 23:16:49 10/28/20 24 10/29/2024 ALLER GENS, ZONE 1 D961-NxY CAT dander 0.12 kU/L class 0/I abnormal Not Available [facility] ([facility]) [address] [place], [address], 10/29/2024 23:16:49 10/28/20 24 10/29/2024 ALLER GENS, ZONE 1 W497-IfV dog dander 5.14 kU/L class IV abnormal Not Available [facility] ([facility]) [address] [place], [address], 10/29/2024 23:16:49 10/28/20 24 10/29/2024 ALLER GENS, ZONE 1 q408-PsD bermuda grass <0.10 kU/L class 0 Not Available [facility] ([facility]) [address] [place], [address], 10/29/2024 23:16:49 10/28/20 24 10/29/2024 ALLER GENS, ZONE 1 b696-CxY bluegrass, kent[place] <0.10 kU/L class 0 Not Available [facility] ([facility]) [address] [place], [address], 10/29/2024 23:16:49 10/28/20 24 10/29/2024 ALLER GENS, ZONE 1 g021-LpT bahia grass <0.10 kU/L class 0 Not Available [facility] ([facility]) [address] [place], [address], 10/29/2024 23:16:49 10/28/20 24 10/29/2024 ALLER GENS, ZONE 1 D357-ArE cockroach, cape verdean 0.10 kU/L class 0/I abnormal Not Available [facility] ([facility]) [address] [place], [address], 10/29/2024 23:16:49 10/28/20 24 10/29/2024 ALLER GENS, ZONE 1 W000-SdW penicillium chrysogen <0.10 kU/L class 0 Not Available [facility] ([facility]) [address] [place], [address], 10/29/2024 23:16:49 10/28/20 24 10/29/2024 ALLER GENS, ZONE 1 C076-TnV cladosporium herbarum <0.10 kU/L class 0 Not Available [facility] ([facility]) [address] [place], [address], 10/29/2024 23:16:49 10/28/20 24 10/29/2024 ALLER GENS, ZONE 1 A375-VkG aspergillus fumigatus <0.10 kU/L class 0 Not Available [facility] ([facility]) [address] [place], [address], 10/29/2024 23:16:49 10/28/20 24 10/29/2024 ALLER GENS, ZONE 1 U623-KjJ mucor racemosus <0.10 kU/L class 0 Not Available [facility] ([facility]) [address] [facility] [place], [address], 10/29/2024 23:16:49 10/28/20 24 10/29/2024 ALLER GENS, ZONE 1 S077-IbB alternaria alternata <0.10 kU/L class 0 Not Available [facility] ([facility]) [address] [facility] [place], [address], 10/29/2024 23:16:49 10/28/20 24 10/29/2024 ALLER GENS, ZONE 1 X301-DuU stemphylium herbarum <0.10 kU/L class 0 Not Available [facility] ([facility]) [address] [facility] [place], [address], 10/29/2024 23:16:49 10/28/20 24 10/29/2024 ALLER GENS, ZONE 1 V200-XpN common silver birch 3.39 kU/L class III abnormal Not Available [facility] ([facility]) [address] [facility] [place], [address], 10/29/2024 23:16:49 10/28/20 24 10/29/2024 ALLER GENS, ZONE 1 R677-IcC oak, white 10.60 kU/L class IV abnormal Not Available [facility] ([facility]) [address] [place], [address], 10/29/2024 23:16:49 10/28/20 24 10/29/2024 ALLER GENS, ZONE 1 N672-OvE elm, cape verdean <0.10 kU/L class 0 Not Available [facility] ([facility]) [address] [facility] [place], [address], 10/29/2024 23:16:49 10/28/20 24 10/29/2024 ALLER GENS, ZONE 1 H342-SfS samira, white <0.10 kU/L class 0 Not Available [facility] ([facility]) [address] [facility], [place], [address], 10/29/2024 23:16:49 10/28/20 24 10/29/2024 ALLER GENS, ZONE 1 N925-CpQ maple/box elder 0.23 kU/L class 0/I abnormal Not Available [facility] ([facility]) [address] [facility], [place], [address], 10/29/2024 23:16:49 10/28/20 24 10/29/2024 ALLER GENS, ZONE 1 V533-ZzX hazelnut tree 1.25 kU/L class II abnormal Not Available [facility] ([facility]) [address] [facility], [place], [address], 10/29/2024 23:16:49 10/28/20 24 10/29/2024 ALLER GENS, ZONE 1 Y011-CuO hickory, white 0.13 kU/L class 0/I abnormal Not Available [facility] ([facility]) [address] [facility], [place], [address], 10/29/2024 23:16:49 10/28/20 24 10/29/2024 ALLER GENS, ZONE 1 Q074-BgU white mulberry <0.10 kU/L class 0 Not Available [facility] ([facility]) [address] [facility], [place], [address], 10/29/2024 23:16:49 10/28/20 24 10/29/2024 ALLER GENS, ZONE 1 G602-GzS cedar, mountain <0.10 kU/L class 0 Not Available [facility] ([facility]) [address] [facility], [place], [address], 10/29/2024 23:16:49 10/28/20 24 10/29/2024 ALLER GENS, ZONE 1 L546-ZvW ragweed, short <0.10 kU/L class 0 Not Available [facility] ([facility]) [address] [facility], [place], [address], 10/29/2024 23:16:49 10/28/20 24 10/29/2024 ALLER GENS, ZONE 1 Y712-NwE mugwort <0.10 kU/L class 0 Not Available [facility] ([facility]) [address] [facility], [place], [address], 10/29/2024 23:16:49 10/28/20 24 10/29/2024 ALLER GENS, ZONE 1 R466-NmB plantain, panamanian <0.10 kU/L class 0 Not Available [facility] ([facility]) [address] [facility], [place], [address], 10/29/2024 23:16:49 10/28/20 24 10/29/2024 ALLER GENS, ZONE 1 C174-MfD pigweed, common <0.10 kU/L class 0 Not Available [facility] ([facility]) [address] [facility], [place], [address], 10/29/2024 23:16:49 10/28/20 24 10/29/2024 ALLER GENS, ZONE 1 L079-LnZ sheep sorrel <0.10 kU/L class 0 Not Available [facility] ([facility]) [address] [facility], [place], [address], 10/29/2024 23:16:49 10/28/20 24 10/29/2024 ALLER GENS, ZONE 1 I312-TfC nettle <0.10 kU/L class 0 Not Available [facility] ([facility]) [address] [facility], [place], [address], 10/29/2024 23:16:49 10/28/20 24 10/29/2024 FOOD ALLER GY PROFI LE K555-PnS egg white 0.21 kU/L class 0/I abnormal Not Available [facility] ([facility]) [address] [place], [address], 10/29/2024 23:16:50 10/28/20 24 10/29/2024 FOOD ALLER GY PROFI LE I555-IkP peanut <0.10 kU/L class 0 Not Available [facility] ([facility]) [address] [place], [address], 10/29/2024 23:16:50 10/28/20 24 10/29/2024 FOOD ALLER GY PROFI LE A245-BiY soybean <0.10 kU/L class 0 Not Available [facility] ([facility]) [address] [place], [address], 10/29/2024 23:16:50 10/28/20 24 10/29/2024 FOOD ALLER GY PROFI LE M270-ZdU milk 0.66 kU/L class II abnormal Not Available [facility] ([facility]) [address] [place], [address], 10/29/2024 23:16:50 10/28/20 24 10/29/2024 FOOD ALLER GY PROFI LE G230-MzU clam <0.10 kU/L class 0 Not Available [facility] ([facility]) [address] [place], [address], 10/29/2024 23:16:50 10/28/20 24 10/29/2024 FOOD ALLER GY PROFI LE Q478-QzV shrimp 0.10 kU/L class 0/I abnormal Not Available [facility] ([facility]) [address] [place], [address], 10/29/2024 23:16:50 10/28/20 24 10/29/2024 FOOD ALLER GY PROFI LE A382-DuK walnut <0.10 kU/L class 0 Not Available [facility] ([facility]) [address] [place], [address], 10/29/2024 23:16:50 10/28/20 24 10/29/2024 FOOD ALLER GY PROFI LE F597-QgE codfish <0.10 kU/L class 0 Not Available [facility] ([facility]) [address] [place], [address], 10/29/2024 23:16:50 10/28/20 24 10/29/2024 FOOD ALLER GY PROFI LE L288-IvX scallop <0.10 kU/L class 0 Not Available [facility] ([facility]) [address] [facility], [place], [address], 10/29/2024 23:16:50 10/28/20 24 10/29/2024 FOOD ALLER GY PROFI LE F742-RcP wheat <0.10 kU/L class 0 Not Available [facility] ([facility]) [address] [facility], [place], [address], 10/29/2024 23:16:50 10/28/20 24 10/29/2024 FOOD ALLER GY PROFI LE Z441-CqP corn <0.10 kU/L class 0 Not Available [facility] ([facility]) [address] [place], [address], 10/29/2024 23:16:50 10/28/20 24 10/29/2024 FOOD ALLER GY PROFI LE J835-QrX sesame seed <0.10 kU/L class 0 Not Available [facility] ([facility]) [address] [place], [address], 10/29/2024 23:16:50 10/28/20 24 10/29/2024 IMMUN OGLOB ULIN E, TOTAL immunoglobul in E, total 81 IU/mL 6-495 Not Available [facility] [address] [place], [address], 10/29/2024 23:16:50 06/23/20 24 03/18/2024 imagi ng/di agnos tic resul t No observ ation record ed. [email or web address] Not Available 21:06:53 08/06/20 24 audio gram No observ ation record ed. [email or web address] Not Available 2023 15:00:15 08/27/20 24 audio gram No observ ation record ed. [email or web address] Not Available 08/04 11:42:10 Result Notes None recorded. Problems Name Problem SNOMED Code Status Onset Date Resolution Date Notes Provider Name and Address Organization Details Recorded Time Chronic pharyngit is 428934 Active 2016 Chronic sore throat; Note: Date Diagnosed : 11/08/2016 2:47 PM (J31.2) Not Available [facility] 4 02:30:50 Gastroeso phageal reflux disease without esophagit is 056936700 Active 2016 Gastro-es ophageal reflux disease without esophagit is; Note: Date Diagnosed : 11/08/2016 2:47 PM (K21.9) Not Available [facility] 4 02:30:44 Mass of neck 769316822 Active 2014 Localized swelling, mass and lump, neck; Note: Date Diagnosed : 5 5:39 AM (R22.1) Not Available [facility] 4 02:30:45 Neck swelling 925860292 Active 2014 Localized swelling, mass and lump, neck; Note: Date Diagnosed : 5 5:39 AM (R22.1) Not Available [facility] 4 02:30:45 Lesion of oral mucosa 66371062368 91105 Active 2016 Other lesions of oral mucosa; Note: Date Diagnosed : 11/08/2016 2:53 PM (K13.79) Not Available [facility] 4 02:31:01 Tinnitus of left ear 26855118807 06 Active 2023 LAVONNE RODRIGUEZ MD [address] [place] [address], [place], [address] , [facility] 4 11:32:24 Migraine 75094991 Active 2023 LAVONNE RODRIGUEZ MD [address], [place], [address] , [place] [facility] 4 11:32:34 Pharyngea l dysphagia 56695224702 105 Active 2023 LAVONNE RODRIGUEZ MD [address], [place], [place], [address] , [place] [facility] 4 11:32:47 Abnormal auditory perceptio n 69766479 Active 2023 LAVONNE RODRIGUEZ MD [address], [place], [place], [address] , [place] [facility] 4 11:33:02 Abnormal auditory perceptio n 89755025 Active 2023 LION HEREDIA MD [address] [facility] [place] [place], [place], [address] , [place] [facility] 4 14:26:32 Neck pain 08481733 Active 2023 LION HEREDIA MD [address] [facility] [place], [place], [place], [address] , [place] [facility] 4 14:26:40 Pain of left temporoma ndibular joint 25605487027 114152 Active 2023 LION HEREDIA MD [address] [facility] [place] [place], [place], [place], [address] , [place] [facility] 4 14:26:28 Posterior rhinorrhe a 42698947 Active 2023 MARY SCHREIBER PA-C [address], [place], [place], [address] , [place] [facility] 4 10:48:17 Allergic rhinitis 25927431 Active 2023 MARY SCHREIBER PA-C [address], [place], [address] , [place] [facility] 4 10:48:34 Perennial allergic rhinitis 803001084 Active 2023 PATIENCE HUIZAR, RMA [address] [facility] [place] [address], [place], [address] , [facility] 08:39:44 Problem Notes None recorded. Procedures Surgical History Date Name Laterality Status Provider Name and Address Organization Details Recorded Time 08/27/20 24 Tympanometry (81577) completed Melodie GANN [address] [facility],[place] [address], [place], [address], [facility] 08/27/2024 10:00:48 08/06/20 24 Air & Speech Audio with Tymps (61137, 82832 & 29090) completed SIMBA ALEGRE MA, CCC-A [address] [facility],[place] [address], [place], [address], [facility] - [facility] 08/06/2024 14:03:16 03/18/20 24 Fiberoptic Laryngoscopy (Comprehensive) completed LAVONNE SIM MD [address] [facility],[address], [address], [facility] - [facility] 03/18/2024 11:32:05 03/18/20 24 Air only Audio (74190) completed MELODIE DELCID [address] [facility],[address], [address], [facility] 03/18/2024 11:52:00 03/18/20 24 SRT & Speech Recognition (64318) completed MELODIE DELCID [address] [facility],[place] [address], [place], [address], [facility] 03/18/2024 11:52:17 11/03/19 18 removal of sebaceous cyst completed Rizwan Castillo [facility] 03/18/2024 11:23:09 11/03/19 17 Breast augmentation w/implt completed Rizwan Castillo [facility] 03/18/2024 11:23:46 therapeutic cervical epidural injection completed LAVONNE SIM MD [address] [facility],[address], [address], [facility] - [facility] 03/18/2024 11:24:17 Imaging Results Imaging Date Name Status LastModified by [facility] Details LastModified Time 03/18/2024 imaging/diagno stic result completed [email or web address] Information not available 06/23/2024 21:06:53 08/06/2024 audiogram completed [email or web address] Information no t available 08/06/2024 15:00:15 08/27/2024 audiogram completed [email or web address] Information n ot available 08/27/2024 11:42:10 Procedure Notes None recorded. Medical Equipment None Reported. Allergies Allergen ID Allergen Name Allergen Category Reaction Reaction Severity Criticality Documentation Date Start Date Code Code System Note Provider Name and Address Organization Details Recorded Time 14219 penicilli n V potassium medicatio n other Not available Not available 03/16/202418581 5 RxNorm React ion: unkno wn, unspe [...] 1 tablet 2016 active Medicatio n ID: [id number] Pr escribed By Name: Colleen Joseph MD [...] Updated DateTime 05/07/2024 167.64 cm 20.7 kg/m2 71109.[address] [place] [facility] 05/07/2024 14:00:00 Date Recorded Body height Body mass index (BMI) Body weight Provider Name and Address Organization Details Last Updated DateTime 08/06/2024 167.64 cm 19.4 kg/m2 44388.[address] [facility] 08/06/2024 14:18:43 Date Recorded Body height Body mass index (BMI) Body weight Provider Name and Address Organization Details Last Updated DateTime 08/27/2024 167.64 cm 19.4 kg/m2 49636.[address] [facility] 08/27/2024 09:35:59 Date Recorded Body height Body mass index (BMI) Body weight Provider Name and Address Organization Details Last Updated DateTime 03/18/2024 167.64 cm 20.7 kg/m2 11940.82 g Rizwan Castillo [facility] 03/18/2024 11:21:57 Social History Question Answer Notes LastModified by Organizat ion Details LastModified Time Tobacco Smoking Status Never Smoker Rizwan salas [facility] 03/18/2024 11:22:25 What Is Your Level Of Alcohol Consumption? None [email or web address] Information not available 03/18/2024 Do You Use Any Illicit Or Recreational Drugs? No [email or web address] Information not available 03/18/2024 Do You Or Have You Ever Used Any Other Forms Of Tobacco Or Nicotine? No Information not available 03/18/2024 Sex: Unknown Functional Status None recorded. Mental Status None recorded. Family History Nothing Reported. Medical History Condition Response Anesthesia Complications N Allergies/Hayfever Y Heart Problems N Hyperlipidemia N Arthritis N Anxiety N Asthma Y High Cholesterol N Gynecological HistoryNo gynecological history recorded. Obstetrics History GPAL:G 0 P 0 0 0 0 Past Encounters Encounter ID Performer Location Encounter Start Date Encounter Closed Date Diagnosis/Indication Diagnosis SNOMED-CT Code Diagnosis ICD10 Code Diagnosis Note [id number] LAVONNE RODRIGUEZ MD [facility] [address] [address] 03/18/2024 11:13:52 03/18/2024 12:02:33 Tinnitus of left ear 5470600620 106 H93.12 Hearing within normal limits AU.Type A tympanogra ms AU. Migraine 95115455 G43.90 9 Pharyngeal dysphagia 320 9184777 9105 R13.13 She notes a sensation of randomly having a cough with saliva or fluids. Transnasal fiberoptic laryngosco py shows normal vocal fold mobility and no masses Abnormal a uditory perception 52465350 H93.292 Patient presents with sensation of fullness, [...] about fluid in the ear Neck pain 94564272 M54.2 [id number] LION HEREDIA MD [facility] [address] [place] [address] 05/07/2024 13:53:44 05/07/2024 14:43:55 Pain of left temporomandibular joint 2831459229 8713662 M26.622 Abnormal a uditory perception 97110458 H93.292 Neck pain 15261430 M54.2 [id number] LION HEREDIA MD [facility] [address] [place] [address] 08/06/2024 13:30:04 08/06/2024 17:05:24 Abnormal auditory perception 05891895 H93.299 Audiologic al evaluation results: Right ear: [...] Cou ld not maintain a hermetic seal}} [id number] LAVONNE RODRIGUEZ MD [facility] [address] [address] 08/27/2024 09:33:34 08/27/2024 10:32:43 Abnormal auditory perception 78631972 H93.299 Tympanomet ry: Right Ear:{{Type A* Type [...] maintain a hermetic seal}} Posterior rhinorrhea 758 86726 R09.82 Allergic rhinitis 396033 04 J30.9 Health Concerns Section Related Observation LastModified by Organization Detai ls LastModified Time None Recorded Concern Status LastModified by Organization Details LastModified Time None Recorded Advance Directives Directive None Recorded Payers Encounter Date Sequence Insurance Name Policy Number Policy [place] Covered Member ID [place]ano Member ID Guarantor Name 03/18/2024 1 [facility] (MEDICAID REPLACEMENT - HMO) [place] Lismarie Dykes [id number] Lismarie Dykes 05/07/2024 1 [facility] (MEDICAID REPLACEMENT - HMO) [employer] Lismarie Dykes [id number] Lismarie Dykes 08/06/2024 1 [facility] (MEDICAID REPLACEMENT - HMO) [place] Lismarie Dykes [id number] Lismarie Dykes 08/27/2024 1 [facility] (MEDICAID REPLACEMENT - HMO) MARIBELL Dykes [id number] Alondra Dykes Notes Date Note Type Note [...] causing her to cough LAVONNE SIM MD [address] [place] [address],[address], [address], [facility] - [facility] 03/18/2024 12:22:03 05/07/2024 text/html Patient on Dr. [...] choking on her saliva LION HEREDIA MD [address] [place] [address],[address], [address], [place] - [facility] 05/07/2024 14:27:55 08/06/2024 text/html 33-year-old fema le [...] Endorses occasional room-spinning dizziness. LION HEREDIA MD [address] [place] [address], [address], [facility] 08/06/2024 17:16:04 08/27/2024 text/html 33-year-old femgarry le [...] been taking Zyrtec daily. LAVONNE SIM MD [address] [place] [address], [address], [facility] 08/30/2024 12:02:43 OBGyn Episode No OBEpisode recorded.
--- OUTSIDE RECORDS SUMMARY | 2024-12-13 13:15 | XMS_ITS | Encounter Summary ---
Author Organization [facility] Address [address] [place] [address] Care Team Providers Care Medical Office Clerk Name Role Phone Ho Araya MD Primary Care Provider [phone] Encounter Details Date Type Department Care Team (Late Contact Info) Description 09/24/2024 Lab Requisition [facility] - Main Lab [address] [facility] [place] [phone] Sergio Gross PA [address] [facility] [address] [place] [phone] Other microscopic hematuria Social History Tobacco Use [...] PM EDT Office Visit Orthopedic Surgery - [place] [address] [phone] Diaz Galeana DPM [address] [address] 05/02/2025 10:30 AM EDT Office Visit [facility] Hematology Oncology [address] [place] [phone] MaciClotilde huber, DO [address] [place] [address] documented as of this encounter Procedures Procedure [...] clinical and pathological findings. 10/12/2024 9:06 AM [facility] Addendum electronically signed by Gaetano Fernando MD on 10/12/2024 at 9:06 AM Final Diagnosis Urine, Voided: Negative for high grade urothelial carcinoma. Note: UroVysion testing to follow. 10/12/2024 9:06 AM [facility] Clinical Information [id number], Urine cyto/urine FISH. 10/12/2024 9:06 AM [facility] Gross Description A. Urine, Voided, : [id number] recd 1 TP cyto 1 TP fish. 10/12/2024 9:06 AM [facility] Disclaimer Unless otherwise specified, all tissue is 10% NB formalin fixed and paraffin embedded. 10/12/2024 9:06 AM [facility] Tissue Urine specimen from urethra / Unknown 09/21/2024 09/24/2024 1:47 PM EST us Sergio SHIRLEY LAB PATHOLOGY ORDERABLES Edite d Result - Final [facility] [address] [place] [address], documented in this encounter Visit Diagnoses Diagnosis Other microscopic hematuria documented in this encounter Care Teams Medical Office Clerk Relationship Specialty Start Date End Date Ho Araya MD [address] [place] [address] PCP - General Internal Medicine 07/25/15 documented as of this encounter
--- OUTSIDE RECORDS SUMMARY | 2024-12-13 13:15 | XMS_ITS | Encounter Summary ---
Author Organization [facility] Address [address] [place] [address] Care Team Providers Care Manufacturing Weaver Name Role Phone Ho Araya MD Primary Care Provider [phone] Encounter Details Date Type Department Care Team (Late st Contact Info) Description 11/08/2024 Telephone Gastroenterology - [place] [address] [place] [address] Christos Blackwell PA [address] [place] [address] Social History Tobacco Use Types Packs/Day Years [...] 2:15 PM EDT Office Visit Orthopedic Surgery [facility] [address] [address] Diaz Galeana, DPM [address] [address] 05/02/2025 10:30 AM EDT Office Visit [facility] Hematology Oncology [address] [place] [address] Clotilde Lux, [address] [place] [address] documented as of this encounter Visit Diagnoses Not on filedocumented in this encounter Care Teams Manufacturing Weaver Relationship Specialty Start Date End Date Ho Araya MD [address] [place] [address] PCP - General Internal Medicine 07/25/15 documented as of this encounter
--- OUTSIDE RECORDS SUMMARY | 2024-12-13 13:15 | XMS_ITS | Encounter Summary ---
Author Organization [facility] Address [address] [place] [address] Care Team Providers Care Customer Solutions Supervisor Name Role Phone Ho Araya MD Primary Care Provider [phone] Reason for Referral * Imaging (Routine) - Authorized Specialty Diagnoses / Procedures Referred By Contac t Referred To Contact Radiology Diagnoses Cervicalgia Procedures US Head Neck Soft Tissue Piero Encarnacion PA [address] [place] [address] Phone: tel: fax: [address] [address] Phone: tel: Referral ID Status Reason Start Date Expiration Date V isits Requested Visits Authorized [id number] Authorized 11/10/2024 11/10/2025 1 1 Reason for Visit * Imaging (Routine) - Authorized Specialty Diagnoses / Procedures Referred By Contac t Referred To Contact Radiology Diagnoses Cervicalgia Procedures US Head Neck Soft Tissue Piero Encarnacion PA [address] [place] [address] Phone: tel: fax: [address] [address] Phone: tel: Referral ID Status Reason Start Date Expiration Date V isits Requested Visits Authorized [id number] Authorized 11/10/2024 11/10/2025 1 1 Encounter Details Date Type Department Care Team (Latest Contact Info) Description 11/15/2024 12:57 PM EST - 11/15/2024 11:59 PM EST Hospital Encounter [facility] Ultrasound [address] [place] [address] Cervicalgia Discharge Disposition: Home or [...] this encounter Medications at Time of Discharge acetaminophen (TYLENOL) 325 mg tablet TAKE 2 TABLETS BY MOUTH EVERY 6 HOURS NEEDED FOR FEVER/MILD PAIN SCALE 1 3 0 albuterol HFA (PROVENTIL HFA;VENTOLIN HFA) 108 (90 [...] day. 60 each 2 4 12/21/19 25 baclofen (LIORESAL) 10 mg tablet Take 1 Tablet by mouth 2 times daily as needed for Other (muscle spasm, may cause sedation). 2 BACLOFEN ORAL Take 1 tablet (10 mg total) by mouth 3 (three) times a day. - Oral diclofenac (VOLTAREN) 1 % topical gel Apply 4 g topically 2 times daily as needed (Thigh pain). 4 dicyclomine (BENTYL) 10 mg capsule 4 docusate sodium (COLACE) 100 mg capsule Take 1 capsule (100 mg total) by mouth 2 (two) times a day. 3 fluticasone propionate (FLONASE) 50 mcg/actuation nasal spray SPRAY 2 SPRAYS INTO EACH NOSTRL ONCE DAILY 3 lidocaine (XYLOCAINE) 5 % ointment Apply topically 2 (two) times a day. 35.44 g 5 linaclotide (LINZESS ORAL) Take 1 capsule (145 mcg total) by mouth every morning before breakfast. - Oral linaCLOtide (Linzess) 145 mcg capsule Take 1 tablet by mouth 1 (one) time each day. 4 LORazepam (ATIVAN) 1 mg tablet Take 1 tablet (1 mg total) by mouth every 6 (six) hours as needed. - Oral methylPREDNISolo ne (MEDROL) 4 mg tablet Sig - Route: [...] by mouth. - Oral nutritional drink (Ensure) liquidIndication s:Complex regional pain syndrome type 1, affecting unspecified site,Weight loss,BMI less than 19,adult 1 bottle twice daily for weight loss / Maynard Flavored 60 each 4 NUTRITIONAL SUPPLEMENTS ORAL Sig - Route: Take 1 Can by mouth daily. - Oral Sent to pharmacy as: Ensure Active Oral Liquid ondansetron (ZOFRAN) 4 mg tablet Take by mouth daily as needed for nausea. - Oral ondansetron (ZOFRAN) 8 mg tablet Take 1 tablet (8 mg total) by mouth 3 (three) times a day. 60 tablet 6 4 pantoprazole (PROTONIX) 40 mg EC tablet Take 1 Tablet by mouth daily. Take in am on empty stomach, wait 30 mins and then eat to activate the medication 2 pantoprazole (PROTONIX) 40 mg EC tablet Take 1 tablet (40 mg total) by mouth 2 (two) times a day. Take on empty stomach, wait 30 mins and then eat to activate the medication- before breakfast and supper 60 each 4 09/27/20 25 polyethylene glycol (PEG) 17 gram/dose oral powder [...] mouth 2 (two) times a day. 2 promethazine (PHENERGAN) 12.5 mg tablet Take 1 tablet (12.5 mg total) by mouth every 6 (six) hours if needed. 4 QUEtiapine (SEROquel) 25 mg tablet Take 1 tablet (25 mg total) by mouth 4 (four) times a day. - Oral rimegepant (NURTEC) 75 mg dispersible tablet Take 1 tablet (75 mg total) by mouth. - Oral senna (SENOKOT) 8.6 mg tablet Take 1 tablet (8.6 mg total) by mouth 1 (one) time each day. 3 sucralfate (CARAFATE) 100 mg/mL suspension Take 10 mL (1 g total) by mouth 4 (four) times a day (with meals and nightly). Take 1 hour before meals and at bedtime 1200 mL 11 4 zolpidem tartrate (AMBIEN ORAL) Take 1 tablet (5 mg total) by mouth every night at bedtime as needed for sleep. - Oral cetirizine (ZyrTEC) 10 mg tablet Take 1 tablet (10 mg total) by mouth 1 (one) time each day. 4 12/08/19 25 documented as of this encounter Discharge Disposition Disposition Code Departure Means Destination Home or Self Care documented in this encounter Plan of Treatment Upcoming Encounters Date Type Department Care Team (Late st Contact Info) Description 01/24/2025 2:15 PM EDT Office Visit Orthopedic Surgery [facility] [address] [phone] Diaz Galeana DPM [address] [address] 05/02/2025 10:30 AM EDT Office Visit [facility] Hematology Oncology [address] [place] [phone] Clotilde Lux, DO [address] [place] [address] documented as of this encounter Procedures Procedure [...] Signed Date: 11/23/2024 08:29 ET Workstation ID: [id number] Transcribed By: Self Edit Transcribed Date: 11/23/2024 [...] Signed Date: 11/23/2024 08:29 ET Workstation ID: [id number] Transcribed By: Self Edit Transcribed Date: 11/23/2024 08:27 ET us Piero SHIRLEY IMG US PROCEDURES Final Res ult documented in this encounter Visit Diagnoses Diagnosis Cervicalgia documented in this encounter Care Teams Customer Solutions Supervisor Relationship Specialty Start Date End Date Ho Araya MD [address] [place] [address] PCP - General Internal Medicine 07/25/15 documented as of this encounter
--- OUTSIDE RECORDS SUMMARY | 2024-12-13 13:15 | XMS_ITS | Encounter Summary ---
Author Organization [facility] Address [address] [place] [address] Care Team Providers Care Mineral Surveyor Name Role Phone Ho Araya MD Primary Care Provider [phone] Reason for Visit * Reason Onset Date Comments PT1 11/19/2024 Piero bonner @ [facility] Encounter Details Date Type Department Care Team (Late st Contact Info) Description 11/19/2024 [facility] [address] [place] [phone] Ho Araya MD [address] [place] [address] PT1 (Piero Encarnacion @ [facility]) Social History Tobacco Use Types Packs/Day [...] 11/22/2024 9:36 AM EST PT-1 Auth # [id number] good for 4 visit per 1 yr. * Alesha Adamson - 11/19/2024 12:52 PM EST PT-1 Request Call [employer] new provider or submitter number is [id number] Verify and document patients [place] Health insurance ID # (NOT [facility] ID): [id number] Payor: Own Products PLAN / Plan: [employer]ICA[employer] / Product Type: *No Product type* / Patient mailing address: [address] [place] [address] (home) [phone] (work) Pt. demographics verified? yes If not accurate, update registration. Is this a NEW request or a RENEWAL? New request Name of treating facility: [facility] Name (first & last) of treating provider? required : Piero Encarnacion PA-C What is the medical reason why the patient is seeing the above provider? [facility] Address/Zip code for treating provider: [address] [place] [address], [place] [address] Phone # for treating provider: [phone] Is the provider in the [facility] [employer] network (do they accept [place] Health insurance)? yes What specialtly is this [...] PM EDT Office Visit Orthopedic Surgery - [place] [address] [phone] Diaz Galeana, DPM [address] [address] 05/02/2025 10:30 AM EDT Office Visit [facility] Hematology Oncology [address] [place] [phone] Clotilde Lux, [address] [place] [address] documented as of this encounter Visit Diagnoses Not on filedocumented in this encounter Care Teams Mineral Surveyor Relationship Specialty Start Date End Date Ho Araya MD [address] [place] [address] PCP - General Internal Medicine 07/25/15 documented as of this encounter
--- OUTSIDE RECORDS SUMMARY | 2024-12-13 13:15 | XMS_ITS | Data Portability ---
Author Organization [facility] [address] Address [address] [place] [address] Assessment No assessment recorded. Plan of Treatment Reminders Order Date Submit Date Provider Last Modified By Organization Details Last Modified Time Details Appointments None recorded. Lab rapid strep group A, throat 2022 023 [email or web address] 5 [facility] [address], [address] [place], [address], 3 13:02:13 streptococc us group A, culture, throat 2022 023 [email or web address] [facility] ([facility], [address] [place] [address], [place], [address], 3 13:11:10 Referral None recorded. Procedures None recorded. Surgeries None recorded. Imaging None recorded. Medication Orders Polytrim 10,000 unit-1 mg/mL eye drops 2022 023 [facility] #1130, [phone] [place], [address], 3 10:38:33 Ciprodex 0.3 %-0.1 % ear drops,suspe nsion 2023 024 [facility] #113, [phone] [place], [address], 4 08:57:12 Zithromax Z-Kroy 250 mg tablet 2023 024 [facility] #1130, [phone] [place], [address], 09:49:54 prednisone 20 mg tablet 2023 024 [facility], [phone] [place], [address], 09:11:00 cefdinir 300 mg capsule 2023 024 [facility], [phone] [place], [address], 09:10:58 Patient TargetsNo targets recorded. Patient Instructions Encounter Date Encounter Id Patient Instructions Last Modified By Organization Details Last Modified Time 12/31/2022 [id number] pinkeye: care instructions [email or web address] Not available 12/31/2022 13:04:53 sore throat: car e instructions [email or web address] Not available 12/31/2022 13:02:13 Use the eye [...] Emergency Medical evaluation for any worsening symptoms. [email or web address] Not available 12/31/2022 13:07:42 01/07/2023 [id number] sore throat: car e instructions Not available 01/07/2023 11:57:17 04/18/2024 [id number] Your ear does no t currently look [...] Ricky luck Not available 04/18/2024 09:22:15 06/19/2024 [id number] middle ear fluid : care instructions [email or web address] [...] p A). (CLSI ) Not Available [facility] ([facility]) [address] [facility], [place], [address], 01/02/2023 12:06:18 12/31/19 23 12/31/2022 rapid strep group A, throa t Unknown Analyte Normal = Negati ve Not Available [address] [place], [address], 12/31/2022 11:53:41 12/31/19 23 12/31/2022 rapid strep group A, throa t Unknown Analyte negati ve Not Available [address] [place], [address], 12/31/2022 11:53:41 Result Notes None recorded. Problems Name Problem SNOMED Code Status Onset Date Resolution Date Notes Provider Name and Address Organization Details Recorded Time Otitis externa of left ear 3605955166618 109 Active 2023 Deacon Evans, DO [address] , [place], [address], [place] - [facility] 4 09:49:06 Acute left otitis media 024606747 Active 2023 Deacon Evans, DO [address] , [place], [address], [place] - [facility] 4 11:56:45 Acute serous otitis media of bilateral ears 3114936287025 107 Active 2023 Boyd Dodge, EMT I/85 [address] , [place], [address], [place] - [facility] 4 09:08:47 Bilateral earache 889714413 Active 2023 Boyd Dodge, EMT I/85 [address] , [place], [address], [place] - [facility] 4 09:09:15 Fibromyalgi a 926858164 Active 2022 TONYA DESMITH null, PA - [facility] 3 11:56:52 Migraine 48672005 Active 2022 TONYA DESMITH null, PA - [...] Name and Address Organization Details Recorded Time 923416 Product containin g penicilli n and antibioti c (product) medicatio n rash Not available Not available 12/31/2022 29861 05 SNOMED TONYA DESMITH null, PA - [facility] 3 11:54:53 521551 Reglan medicatio n itching Not available Not [...] Details Last Updated DateTime 4 167.64 cm 19283.4 2 g 98 % 98 % 7 [...] DateTime 4 167.64 cm 7 97.1 [degF] 13668.0 1 g 98 % 98 % 90 /min 96 mm[Hg] 65 mm[Hg] Karla Kilgore PA - [facility] 4 08:38:15 Date Recorded Body height Body weight Body mass index (BMI) Heart rate Respiratory rate Body temperature Systolic blood pressure Diastolic blood pressure Provider Name and Address Organization Details Last Updated DateTime 4 167.64 cm 06385.6 g 21.1 kg/m2 68 /min 18 /min 98.5 [degF] 109 mm[Hg] 72 mm[Hg] Melissa Raygoza PA - [facility] 4 09:00:07 Date Recorded Body height Body mass index (BMI) Body weight Pain severity - 0-10 verbal numeric rating [Score] - Reported Oxygen saturation Oxygen saturation in Arterial blood by Pulse oximetry Heart rate Respiratory rate Body temperature Systolic blood pressure Diastolic blood pressure Provider Name and Address Organization Details Last Updated DateTime 3 168.91 cm 22.3 kg/m2 29678.9 3 g 5 99 % 99 % 104 /min 20 /min 98.2 [degF] 104 mm[Hg] 70 mm[Hg] TONYA MICHELLE PA - [facility] 3 12:00:10 Date Recorded Body height Body mass index (BMI) Body weight Pain severity - 0-10 verbal numeric rating [Score] - Reported Provider Name and Address Organization Details Last Updated DateTime 01/07/2023 168.91 cm 22.3 kg/m2 71998.93 g 7 TONYA MICHELLE [facility] - [facility] [...] Had A Flu Shot This Season? No [email or web address] Information not available 04/18/2024 What Is Your Water Source? City Information not available 06/19/2024 What Is Your Heat Source? Other Information not available 06/19/2024 Have You Had Direct Contact, Or Contact During Intimacy, With Monkeypox Rash, Scabs, Or Body Fluids From A Person With Monkeypox? No [email or web address] Information not available 04/03/2024 What Was The Date Of Your Most Recent Tobacco Screening? 04/18/2024 [email or web address] Information not available 04/18/2024 Are You Passively [...] SNOMED-CT Code Diagnosis ICD10 Code Diagnosis Note [id number] [address] [place] [address] 03/10/2019 15:42:30 03/10/2019 17:32:00 [id number] [address] [place] [address] 01/26/2022 10:49:30 01/26/2022 12:09:11 [id number] [address] [place] [address] 07/21/2021 11:45:18 07/21/2021 15:15:57 [id number] [address] [place] [address] 12/26/2019 08:04:10 12/26/2019 08:36:06 [id number] [address] [place] [address] 06/11/2022 18:25:04 06/11/2022 19:35:13 [id number] Alessia Mead MD [address] [place] [address] 12/31/2022 11:33:22 12/31/2022 13:09:21 Acute pharyngitis 165089106 J02.9 Acute conj unctivitis of left eye 4131826564 96263 H10.32 [id number] Alessia Mead MD [address] [facility] [address] [place] [address] 01/07/2023 10:17:20 01/07/2023 12:01:17 Left without being seen 6314783374 9102 Z53.21 [id number] Deacon Evans DO [address] [facility] [address] [place] [address] 04/03/2024 09:21:52 04/03/2024 10:13:05 Otitis externa of left ear 0425238037 714084 H60.92 See pcp in 3-4 days or return to urgent care in 3-4 days if cant be seen by pcp for follow up. Go to ER if anything worsens. Otc tylenol as needed for pain. Symptomati c treatment. All of patients questions have been answered. Patient has understand ing and agreement of all of this. Acute left otitis media 201817496 H66.92 pt is rx zpak. sx tx. slight erythema to left tm [id number] [facility] [address] [facility] [address] [place] [address] 04/18/2024 08:23:00 04/18/2024 09:23:34 Otalgia of left ear 2464169676 H92.02 [id number] Boyd Dodge NP [address] [facility] [address] [place] [address] 06/19/2024 08:40:12 06/19/2024 09:15:56 Acute serous otitis media of bilateral ears 7008216565 395474 H65.03 You have been diagnosed with a [...] antibiotic resistance . Thank you for using [facility] today - and don't hesitate to contact our office if you have any concerns or questions. Bilateral earache 622770 003 H92.03 Health Concerns Section Related Observation LastModified by Organization Detai ls LastModified Time None Recorded Concern Status LastModified by Organization Details LastModified Time None Recorded Advance Directives Directive None Recorded Payers Encounter Date Sequence Insurance Name Policy Number Policy [place]ano Covered Member ID Toscano Member ID Guarantor Name 12/31/2022 1 [facility] PL[facility] (MEDICAID HMO) [employer] Lismarie Dykes [id number] Lismarie Dykes 01/07/2023 1 [facility] PLAN (MEDICAID HMO) [employer] Lismarie Dykes [id number] Lismarie Dykes 04/03/2024 1 [facility] PLAN (MEDICAID HMO) [employer] Lismarie Dykes [id number] Lismarie Dykes 04/18/2024 1 [facility] PLAN (MEDICAID HMO) [employer] Lismarie Dykes [id number] Lismarie Dykes 06/19/2024 1 [facility] PLAN (MEDICAID HMO) [employer] Lismarie Dykes [id number] Lismarie Dykes Notes Date Note Type Note [...] Alessia Mead MD [address] [place], [address], [place] - [facility] 01/01/2023 13:02:57 04/03/20 24 text/htm l hx of multiple ear infections in past. follows ent for this. has now left ear pain for the past 4 days. getting worse. no trauma. no fevers. no hearing loss. other uri sx. no chance she is pregant or nursing. Deacon Evans DO [address] [place], [address], [place] [employer] [facility] 04/03/2024 11:57:32 04/18/20 24 text/htm [...] ciprodex FERN No [address] [place], [address], PA - [facility] 04/18/2024 09:22:30 06/19/20 [...] Dodge NP [address] [place], [address], PA - [facility] 06/19/2024 09:11:50 OBGyn Episode No OBEpisode recorded.
[2024-12-14 14:27] LABS: CRP High Sensitivity <0.2 mg/L; Ceruloplasmin 18 mg/dL (14-48)
[2024-12-15 15:09] LABS: Homocysteine 6.2 umol/L (<10.4)
[2024-12-16 13:13] LABS: Copper, serum 79 mcg/dL (70-175)
[2024-12-17 10:48] LABS: Vitamin D 25-OH, D2 8 ng/mL; Vitamin D 25-OH, D3 25 ng/mL; Vitamin D 25-OH, Total 33 ng/mL (30-100)
[2024-12-17 21:58] LABS: Alpha-Tocopherol 8.3 mg/L (5.7-19.9); Beta-Gamma Tocopherol <1.0 mg/L (<=4.3); Vitamin A 46 mcg/dL (38-98)
[2024-12-18 11:58] LABS: Vitamin B2 (Riboflavin) 12.4 nmol/L (6.2-39.0)
[2024-12-18 12:03] LABS: Vitamin B5 (Pantothenic Acid) <=40 ng/mL (<275)
[2024-12-19 07:10] LABS: Vitamin C 1.1 mg/dL (0.3-2.7)
[2024-12-19 16:53] LABS: Vitamin B6 10.2 ng/mL (2.1-21.7)
[2024-12-20 06:33] LABS: Vitamin B1 12 nmol/L (8-30)
[2024-12-22 14:04] LABS: Methylmalonic Acid 91 nmol/L (55-335)
== END 2024-12-13 12:02 | disposition home or self-care (01) ==
LOC: HO.LAB 12:01
PROVIDERS: PCP Internal Medicine; Visit Provider Nurse Practitioner Family
DX: R63.4 Abnormal weight loss (principal); R20.2 Paresthesia of skin; R29.2 Abnormal reflex; D64.9 Anemia, unspecified; R25.1 Tremor, unspecified; G90.512 Complex regional pain syndrome I of left upper limb
CPT/HCPCS: 36415; 82180; 82306; 82390; 82525; 83090; 83921; 84207; 84252; 84425; 84446; 84590; 84591; 86141

== ENCOUNTER 2024-12-22 09:38 | Day surgery (SDC) | payer OTHER, SELFPAY ==
--- NOTE | ~2024-12-22 | FL_ITS ---
FLUOROSCOPIC GUIDED LUMBAR PUNCTURE INDICATION: Complex regional pain syndrome. Concern for MS. TECHNIQUE: Risks and benefits and possible complications were discussed with the patient and the consent form was signed. Patient was placed prone on the fluoroscopy table. The back was prepped and draped in routine sterile fashion. Betadine was used as a skin antiseptic. Utilizing fluoroscopic guidance, the L4-5 interlaminar space was accessed with a 22 gauge Slava spinal needle and clear CSF fluid obtained. Opening pressure was 15 cm H2O. 8 cc of fluid was sent for analysis. The needle was removed without immediate complications. Total fluoroscopy time: 0.6 min FL/FL guided lumbar puncture LP IMPRESSION: Successful fluoroscopic guided lumbar puncture at L4-L5. This procedure was performed by Manny Jackson PA-C and supervised by Dr. Ta. Electronically signed by: Piter Ta MD 12/23/2024 04:09 PM [facility] Workstation: [id number]
[2024-12-22 10:10] VITALS: BP 100/63; PULSE 77; RESP 14; TEMP 36.7; O2SAT 99
[2024-12-22 10:24] LABS: UPreg QC Valid YES
[2024-12-22 10:25] LABS: Urine Pregnancy NEGATIVE (NEGATIVE)
[2024-12-22 12:20] VITALS: BP 94/46; PULSE 69; RESP 18; TEMP 37.3; O2SAT 100
[2024-12-22 12:35] VITALS: BP 98/55; PULSE 70; RESP 16; O2SAT 99
[2024-12-22 12:50] VITALS: BP 94/52; PULSE 66; RESP 16; O2SAT 99
[2024-12-22 13:05] VITALS: BP 96/58; PULSE 70; RESP 16; TEMP 37.3; O2SAT 99
[2024-12-22 13:14] LABS: CSF Appearance Clear, Colorless; CSF Tube # 1
[2024-12-22 13:15] VITALS: BP 101/62; PULSE 67; RESP 16; TEMP 37.3; O2SAT 99
[2024-12-22 13:17] LABS: Glucose CSF 57 mg/dL; Total Protein CSF 18.4 mg/dL (15-45)
[2024-12-22 13:54] LABS: Appearance CSF CLEAR; CSF Tube # 4
[2024-12-22 13:55] LABS: Color CSF COLORLESS; Lymphocytes CSF 100 %; Red Blood Cell CSF 0 MM*3; White Blood Cell CSF 1 MM*3
[2024-12-22 14:02] LABS: Oligoclonal Serum Yes
[2024-12-24 23:32] LABS: Albumin 4.5 g/dL (3.6-5.1); Albumin, CSF 10.6 mg/dL (8.0-42.0); IgG 991 mg/dL (600-1640); IgG Synthesis Rate -3.7 mg/24 h (-9.9-3.3); IgG, CSF 1.1 mg/dL (0.8-7.7)
[2024-12-27 14:48] LABS: Oligoclonal Banding Absent (Absent)
== END 2024-12-22 13:28 | disposition home or self-care (01) ==
PROVIDERS: Physician Assistant Surgical; PCP Internal Medicine; Visit Provider Psychiatry & Neurology Neurology
PROC: 009U3ZZ Drainage of Spinal Canal, Percutaneous Approach (ICD-10-PCS; CPT 62270; principal; 2024-12-22 11:00)
DX: G90.512 Complex regional pain syndrome I of left upper limb (principal); M79.7 Fibromyalgia; G43.909 Migraine, unspecified, not intractable, without status migrainosus; L70.0 Acne vulgaris; M54.50 Low back pain, unspecified; R20.0 Anesthesia of skin; R20.2 Paresthesia of skin; Z87.828 Personal history of other (healed) physical injury and trauma; F32.A Depression, unspecified; F41.9 Anxiety disorder, unspecified; Z79.899 Other long term (current) drug therapy; Z88.0 Allergy status to penicillin; Z88.6 Allergy status to analgesic agent; Z88.8 Allergy status to other drugs, medicaments and biological substances; Z98.890 Other specified postprocedural states
CPT/HCPCS: 62328; 81025; 82042; 82945; 83916; 84157; 89051; J2003

== ENCOUNTER → 2024-12-22 11:45 | Outpatient (BNV) | payer OTHER, SELFPAY | PROVIDERS: PCP Internal Medicine; Visit Provider Physician Assistant Surgical | DX: G90.50 Complex regional pain syndrome I, unspecified (principal) | CPT/HCPCS: 62328 ==

== ENCOUNTER 2024-12-24 18:57 | Outpatient (REF) | payer OTHER, SELFPAY ==
--- NOTE | ~2024-12-24 | MR_ITS ---
CLINICAL HISTORY: R29.2 - Abnormal reflex MR lumbar spine without gadolinium Comparison: None Findings: Normal alignment. No acute fracture or pathologic bone lesion. Cauda equina and conus medullaris within normal limits. There is mild posterior bulging annuli L3-L4 and L4-L5. There is mild facet and ligamentous hypertrophy. No central canal or foraminal stenoses . There is small left nerve root sleeve cyst L3-L4. There is disc space narrowing at T11-T12 with mild posterior bulging annulus, mild central canal stenosis, small annular fissure no foraminal stenosis . however axial images were not performed through this level. There is a small Schmorl's node of the inferior endplate of T11. Paraspinous musculature intact. IMPRESSION: Mild multilevel lumbar spine spondylosis as above, mild bulging annuli Spondylosis changes T11-T12 as above This document has been electronically signed by: Femi Jenkins MD on 12/27/2024 09:15:04
== END 2024-12-24 18:58 | disposition home or self-care (01) ==
LOC: HO.MRI 18:57
PROVIDERS: PCP Internal Medicine; Visit Provider Nurse Practitioner Family
DX: R29.2 Abnormal reflex (principal); R20.2 Paresthesia of skin; M54.50 Low back pain, unspecified
CPT/HCPCS: 72148

== ENCOUNTER → 2024-12-24 19:01 | Outpatient (BNV) | payer OTHER, SELFPAY | PROVIDERS: PCP Internal Medicine; Visit Provider Radiology Diagnostic Radiology | DX: R29.2 Abnormal reflex (principal) | CPT/HCPCS: 72148 ==

== ENCOUNTER → 2024-12-29 15:55 | Outpatient (AMB) | payer OTHER, SELFPAY ==
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
[2024-12-29 15:53] VITALS: BMI 19.7
--- OUTSIDE RECORDS SUMMARY | 2024-12-29 19:26 | XMS_ITS | Clinical Summary ---
Author Organization [facility] Address [address] [place] [address] Care Team Providers Care Director Business Systems Name Role Phone Wendi Toney MD Primary Care Provider [phone] Social History Tobacco Use Types Packs/Day Years [...] age to complete this topic Care Teams Director Business Systems Relationship Specialty Start Date End Date Wendi Toney MD [address] [place] [address] PCP - General Internal Medicine 08/31/20
--- OUTSIDE RECORDS SUMMARY | 2024-12-29 19:26 | XMS_ITS | Continuity of Care Document ---
Author Organization [facility] Address [address] [place] [address]- Care Team Providers Care Clinical Rehabilitation Liaison Name Role Phone Quiana MENENDEZ, Ho Humphrey Primary Care Physician [phone] Encounter [facility] Date(s): 10/19/24 - 12/26/[address] [address]- Attending Physician: Not on Staff, Attending MD [...] 0 Refills, Maintenance, :23:00 PM EST, Tablet, [id number], Partial fill upon patient request if the [...] Refills, Soft Stop, 08/06/24 12:19:00 PM EDT, [facility]/pharmacy #[id number], Partial fill upon patient [...] Team Personnel Name: Verenice Ferrara RN Position: [facility] AMB Nurse Member Role: Primary Care Nurse Name: Marilyn Luna RN Position: [facility] RN Member Role: Primary Care Nurse Name: Quiana MENENDEZ, Ho Humphrey Position: Reference Physician Member Role: PCP Address: [address] [place] [address] Telecom: Care Team Related Persons Name: MARLYN HOWARD Name: SIMON HOWARD Name: REHAN DIXON Name: EVY LAWTON Name: ANTWON NAVA Insurance Providers Guarantor name: JARRETT LAWTON Health Plan Information #: 1 Payer: [employer] Member Number: [id number] Policy Number: NA Group Number: NA Health Plan Information #: 2 Payer: [employer] Member Number: [id number] Policy Number: NA Group Number: NA
--- OUTSIDE RECORDS SUMMARY | 2024-12-29 19:26 | XMS_ITS | Clinical Summary ---
Author Organization [facility] Address [address] [place] [address] Phone Care Team Providers Care Certified Surgical Tech/First Assistant Name Role Phone Ho Araya MD Primary Care Provider [phone] Allergies Active Allergy Reactions Criticality Noted Date [...] 3350 17 GM/SCOOP Oral Powder (GLYCOLAX) Active pantoprazole (PROTONIX) 40 mg EC tablet Take 1 tablet (40 mg total) by mouth 2 (two) times a day. Take on empty stomach, wait 30 mins and then eat to activate the medication- before breakfast and supper 60 each 2024 Active sucralfate (CARAFATE) 100 mg/mL suspension Take 10 mL (1 g total) by mouth 4 (four) times a day (with meals and nightly). Take 1 hour before meals and at bedtime 1200 mL Active ondansetron (ZOFRAN) 8 mg tablet Take 1 tablet (8 mg total) by mouth 3 (three) times a day. 60 tablet 6 Active nutritional drink (Ensure) liquidIndicat ions:Complex regional pain syndrome type 1, affecting unspecified site,Weight loss,BMI less than 19,adult 1 bottle twice daily for weight loss / [place] Flavored 60 each 11 024 Active lidocaine (XYLOCAINE) 5 % ointment Apply topically 2 (two) times a day. 35.44 g 025 Active cetirizine (ZyrTEC) 10 mg tablet TAKE 1 TABLET BY MOUTH EVERY DAY 90 tablet 1 025 Active cetirizine (ZyrTEC) 10 mg tablet Take 1 tablet (10 mg total) by mouth 1 (one) time each day. 024 2024 Discontinued ascorbic acid (VITAMIN C) 500 mg tablet Take 1 tablet (500 mg total) by mouth 2 (two) times a day. 60 each 2 024 2024 Active Problems Problem Noted Date Diagnosed Date Complex regional pain syndrome type 1 08/12/2024 Vitamin D deficiency 01/21/2024 Seasonal allergies 05/30/2022 Anxiety and depression 10/22/2021 Cervical paraspinous muscle spasm 10/22/2021 Fibromyalgia 11/17/2020 Migraine 07/03/2018 Overview (08/12/2024): Seen at [facility], initial visit 09/26/2020. Nerve blocks and trigger point injections done 10/04/2020 and 01/04/2021. Acne vulgaris 08/21/2016 Asthma 01/09/2012 Encounters Date Type Department Care Team Description 11/19/2024 Telephone Internal Medicine - [facility] [place] [address] Ho Araya MD PT1 (Piero Shashank @ [facility]-Rheumatology ) 11/19/2024 Telephone [facility] - [facility] [address] [place] [phone] Ho Araya MD Letter for School/Work 11/15/2024 12:57 PM EST - 11/15/2024 11:59 PM EST Hospital Encounter [facility] Ultrasound [address] [place] [phone] Cervicalgia Discharge Disposition: Home or Self Care 11/09/2024 Telephone Internal Medicine - [address] [address] Ho Araya MD faxed refill 11/08/2024 Telephone Gastroenterology - [place] [facility] [address] [phone] Christos Blackwell PA 10/29/2024 11:11 AM EST - 10/29/2024 11:59 PM EST Hospital Encounter [facility] CT Scan [address] [place] [phone] Decreased appetite; Epigastric pain; Nausea; Irritable bowel syndrome, unspecified type Discharge Disposition: Home or Self Care 10/13/2024 Telephone [facility] Hematology Oncology [address] [place] [phone] MaciClotilde beavers DO Referral 10/12/2024 10:30 AM EST Office Visit [facility] Hematology Oncology [address] [place] [address] Clotilde Lux DO Leukopenia, unspecified type (Primary Dx); Bruising 10/11/2024 [facility] [address] [place] [address] Ho Araya MD Abdominal Pain from Last 3 Months Immunizations Name Administration Dates Next Due Influenza Quadravalent, MDCK , 0.5ml, preservative free (Flucelvax) 6mo and older 10/22/2021 Influenza trivalent, with pr eservative (Fluzone; Afluria) 6mo and older 08/21/2016 Surgical History Surgery Date Site/Laterality Comments BREAST SURGERY PROCEDURE:TRANSUMBILICAL AUGMENTATION MAMMAPLASTY OVARIAN CYST REMOVAL PROCEDURE:OVARIAN CYST REMOVAL OVARIAN CYST REMOVAL N/A PROCEDURE: GA OVARIAN CYSTECTOMY UNI/BI BREAST SURGERY PROCEDURE: GA BREAST AUGMENTATION WITH IMPLANT Medical History Medical History Date Comments Asthma DX:Asthma Migraines 07/03/2018 DX:Migraines; CO MMENT: Seen at [facility], initial visit 09/26/2020. Nerve [...] PM EDT Office Visit Orthopedic Surgery - [place] [address] [phone] Diaz Galeana, DPM [address] [address] 05/02/2025 10:30 AM EDT Office Visit [facility] Hematology Oncology [address] [place] [phone] Clotilde Lux, [address] [place] [address] Health Maintenance Due Date Last Done Comments [...] Procedure Name Priority Date/Time Associated Diagnosis Comments C-REACTIVE PROTEIN Routine 12/29/2024 11 :47 AM EST EXTERNAL MRI REPORT 12/27/2024 EXTERNAL CLINICAL LAB 12/23/2024 EXTERNAL CLINICAL LAB 12/20/2024 EXTERNAL CLINICAL LAB 12/16/2024 US HEAD NECK SOFT TISSUE Routine 11/15/2024 [...] 10/11/2024 1:49 PM EST Leukopenia, unspecified type HM DEPRESSION SCREENING Routine 05/12/2024 LIPID PANEL Routine 05/12/2024 HEPATITIS C SCREENING Routine 11/17/2020 from Last 3 Months or Most Recently Relevant to Health Maintenance Results * C-reactive protein (12/29/2024 11:47 AM EST) Blood Venous blood specimen / Unknown Rojelio Oliver MD LAB BLOOD ORDERABLES Final Result * External MRI Report (12/27/2024) Anatomical Region Laterality Modality Magnetic Resonan ce [facility] IMG MRI PROCEDURES Final Result * External clinical lab (12/23/2024) Only the most recent of3 resultswithin the time period is included. Provider [place] [facility] LAB BLOOD ORDERABLES Fin al Result * US Head Neck Soft Tissue (11/15/2024 [...] Signed Date: 11/23/2024 08:29 ET Workstation ID: [id number] Transcribed By: Self Edit Transcribed Date: 11/23/2024 [...] Signed Date: 11/23/2024 08:29 ET Workstation ID: [id number] Transcribed By: Self Edit Transcribed Date: 11/23/2024 [...] patient of this age. 3. IUD well-positioned. Pattie SHIRLEY ([id number]) -------- FINAL REPORT -------- Dictated By: Patrica Ramirez Dictated Date: 11/01/2024 16:12 ET Assigned Physician: Patrica Ramirez Reviewed and Electronically Signed By: Patrica Ramirez Signed Date: 11/01/2024 16:20 ET Workstation ID: [id number] Transcribed By: Self Edit Transcribed Date: 11/01/2024 16:12 ET Narrative 11/01/2024 4:20 PM EST History: Epigastric pain. Early satiety. Comparison: 01/22/24 Technique: Helical volumetric imaging of the abdomen and pelvis was performed following oral contrast and during the uneventful intravenous administration of 90 cc Isovue-370. DLP: 379.35 mGy/cm GE WireOverpeed VCT Iterative reconstruction technique Findings: Bilateral augmentation [...] of 90 cc Isovue-370. DLP: 379.35 mGy/cm GE WireOverpeed VCT Iterative reconstruction technique Findings: Bilateral augmentation [...] a patient ofthis age. 3. IUD well-positioned. Telejacki SHIRLEY ([id number]) -------- FINAL REPORT -------- Dictated By: Patrica Ramirez Dictated Date: 11/01/2024 16:12 ET Assigned Physician: Patrica Ramirez Reviewed and Electronically Signed By: Patrica Ramirez Signed Date: 11/01/2024 16:20 ET Workstation ID: [id number] Transcribed By: Self Edit Transcribed Date: 11/01/2024 16:12 ET us Christos SHIRLEY IMG CT PROCEDURES Final Result * MARIE IFA with titer and pattern (10/11/2024 1:49 PM EST) MARIE Negative Negative 10/13/2024 2:16 PM EST [facility] Blood Venous blood specimen / Unknown Venipuncture / Unknown 10/11/2024 1:49 PM EST 10/11/2024 4:46 PM EST Clotilde Alyson Lux DO LAB BLOOD ORDERABLES Final Result [facility] [address] [place] [address], [place] [phone] * (ABNORMAL) CBC auto differential (10/11/2024 1:49 PM EST) WBC 9.4 4.8 - 10.8 K/mcL LAB HEMETOLOGY METHOD 10/11/2024 5:15 PM EST [facility] RBC 4.40 3.80 - 4.80 M/mcL LAB HEMETOLOGY METHOD 10/11/2024 5:15 PM [facility] Hemoglobin 13.2 11.5 - 16.0 g/dL LAB HEMETOLOGY METHOD 10/11/2024 5:15 PM EST [facility] Hematocrit 42.3 35.0 - 47.0 % LAB HEMETOLOGY METHOD 10/11/2024 5:15 PM EST [facility] MCV 97.0 79.0 - 98.0 FL LAB HEMETOLOGY METHOD 10/11/2024 5:15 PM [facility] MCH 30.3 27.0 - 32.0 pcg LAB HEMETOLOGY METHOD 10/11/2024 5:15 PM [facility] MCHC 31.2(L) 32.0 - 37.0 g/dL LAB HEMETOLOGY METHOD 10/11/2024 5:15 PM [facility] RDW 13.0 11.0 - 15.0 % LAB HEMETOLOGY METHOD 10/11/2024 5:15 PM [facility] Platelets 275 130 - 400 K/mcL LAB HEMETOLOGY METHOD 10/11/2024 5:15 PM [facility] MPV 10.6 7.0 - 11.0 FL LAB HEMETOLOGY METHOD 10/11/2024 5:15 PM [facility] NRBC 0.0 <1.0 % LAB HEMETOLOGY METHOD 10/11/2024 5:15 PM [facility] NRBC Absolute 0.00 <0.10 K/mcL LAB HEMETOLOGY METHOD 10/11/2024 5:15 PM [facility] Neutrophils Relative 79.5 % LAB HEMETOLOGY METHOD 10/11/2024 5:15 PM [facility] Lymphocytes Relative 13.3 % LAB HEMETOLOGY METHOD 10/11/2024 5:15 PM [facility] Monocytes Relative 6.1 % LAB HEMETOLOGY METHOD 10/11/2024 5:15 PM [facility] Eosinophils Relative 0.3 % LAB HEMETOLOGY METHOD 10/11/2024 5:15 PM [facility] Basophils Relative 0.3 % LAB HEMETOLOGY METHOD 10/11/2024 5:15 PM [facility] Immature Granulocytes Relative 0.5 % LAB HEMETOLOGY METHOD 10/11/2024 5:15 PM [facility] Neutrophils Absolute 7.47(H) 1.50 - 7.00 K/mcL LAB HEMETOLOGY METHOD 10/11/2024 5:15 PM [facility] Lymphocytes Absolute 1.25 1.00 - 5.00 K/mcL LAB HEMETOLOGY METHOD 10/11/2024 5:15 PM [facility] Monocytes Absolute 0.57 0.20 - 1.00 K/mcL LAB HEMETOLOGY METHOD 10/11/2024 5:15 PM [facility] Eosinophils Absolute 0.03 0.00 - 0.50 K/mcL LAB HEMETOLOGY METHOD 10/11/2024 5:15 PM [facility] Basophils Absolute 0.03 0.00 - 0.20 K/[facility] LAB HEMETOLOGY METHOD 10/11/2024 5:15 PM EST [facility] Immature Granulocytes Absolute 0.05(H) 0.00 - 0.03 K/[facility] LAB HEMETOLOGY METHOD 10/11/2024 5:15 PM EST [facility] Blood Venous blood specimen / Unknown Venipuncture / Unknown 10/11/2024 1:49 PM EST 10/11/2024 4:47 PM EST Clotilde Lux DO LAB BLOOD ORDERABLES Final Result [facility] [address] [place] [address], [place] [phone] * Sedimentation rate (10/11/2024 1:49 PM EST) Sed Rate 4 0 - 20 mm/hr LAB HEMETOLOGY METHOD 10/11/2024 5:34 PM EST [facility] Blood Venous blood specimen / Unknown Venipuncture / Unknown 10/11/2024 1:49 PM EST 10/11/2024 4:47 PM EST Clotilde Lux DO LAB BLOOD ORDERABLES Final Result [facility] [address] [place] [address], [place] [phone] * Rheumatoid factor (10/11/2024 1:49 PM EST) Rheumatoid Factor <10.0 <15.0 I Unit/mL LAB CHEMISTRY METHOD 10/11/2024 9:11 PM EST [facility] Blood Venous blood specimen / Unknown Venipuncture / Unknown 10/11/2024 1:49 PM EST 10/11/2024 4:46 PM EST Clotilde Lux DO LAB BLOOD ORDERABLES Final Result [facility] [address] [place] [address], * Depression Screening (05/12/2024) Depression Screening abstracted Historical Provider HEALTH MAINTENANCE Final Result * Lipid panel (05/12/2024) Pathologist [facility] LDL/HDL Ratio 3 0 - 4 Triglycerides 56 0 - 150 mg/dL Cholesterol 173 0 - 200 mg/dL HDL 68 >=40 mg/dL LDL Cholesterol 94 0 - 100 mg/dL Blood Venous blood specimen / Unknown Historical Provider LAB BLOOD ORDERABLES Katy l Result * Hepatitis C Screening (11/17/2020) Pathologist [facility] Hepatitis C Screening abstracted Historical Provider HEALTH MAINTENANCE Final Result from Last 3 Months or Most Recently Relevant to Health Maintenance Insurance [facility] Care Teams Certified Surgical Tech/First Assistant Relationship Specialty Start Date End Date Ho Araya MD [address] [place] [id number] PCP - General Internal Medicine 07/25/15
--- OUTSIDE RECORDS SUMMARY | 2024-12-29 19:26 | XMS_ITS | Encounter Summary ---
Author Organization [facility] Address [address] [place] [address] Care Team Providers Care Electrician Supervisor Name Role Phone Ho Araya MD Primary Care Provider [phone] Reason for Visit * Reason Onset Date Comments Letter for School/Work 11/19/2024 Encounter Details Date Type Department Care Team (Late st Contact Info) Description 11/19/2024 [facility] [address] [place] [phone] Ho Araya MD [address] [place] [address] Letter for School/Work Social History Tobacco Use [...] - 11/22/2024 12:33 PM EST Badge # [id number] * Chayito Max MA - 11/19/2024 1:41 [...] PM EDT Office Visit Orthopedic Surgery - [place] [address] [phone] Diaz Galeana DPM [address] [address] 05/02/2025 10:30 AM EDT Office Visit [facility] Hematology Oncology [address] [place] [phone] Clotilde Lux, DO [address] [place] [address] documented as of this encounter Visit Diagnoses Not on filedocumented in this encounter Care Teams Electrician Supervisor Relationship Specialty Start Date End Date Ho Araya MD [address] [place] [address] PCP - General Internal Medicine 07/25/15 documented as of this encounter
--- OUTSIDE RECORDS SUMMARY | 2024-12-29 19:26 | XMS_ITS | Clinical Summary ---
Author Organization [facility] Address [address] [place] [address] Care Team Providers Care Creative Services Manager Name Role Phone Ho Araya MD Primary Care Provider [phone] Allergies Active Allergy Reactions Criticality Noted Date [...] age to complete this topic Care Teams Creative Services Manager Relationship Specialty Start Date End Date Ho Araya MD PCP - General Internal Medicine 05/19/24
--- OUTSIDE RECORDS SUMMARY | 2024-12-29 19:26 | XMS_ITS | Data Portability ---
Author Organization [facility] [address] Address [address] [place] [address] Assessment No assessment recorded. Plan of Treatment Reminders Order Date Submit Date Provider Last Modified By Organization Details Last Modified Time Details Appointments None recorded. Lab rapid strep group A, throat 2022 023 [email or web address] 5 [address], [address] [place], [address], 3 13:02:13 streptococc us group A, culture, throat 2022 023 [email or web address] [facility], [address] [place] [address], [place], [address], 3 13:11:10 Referral None recorded. Procedures None recorded. Surgeries None recorded. Imaging None recorded. Medication Orders prednisone 20 mg tablet 2023 024 [facility], [phone] [place], [address], 4 09:11:00 cefdinir 300 mg capsule 2023 024 [facility], [phone] [place], [address], 4 09:10:58 Ciprodex 0.3 %-0.1 % ear drops,suspe nsion 2023 024 [facility], [phone] [place], [address], 4 08:57:12 Zithromax Z-Kory 250 mg tablet 2023 024 [facility] [address] [place], [address], 4 09:49:54 Polytrim 10,000 unit-1 mg/mL eye drops 2022 023 [facility] [phone] [place], [address], 3 10:38:33 Patient TargetsNo targets recorded. Patient Instructions Encounter Date Encounter Id Patient Instructions Last Modified By Organization Details Last Modified Time 12/31/2022 [id number] pinkeye: care instructions [email or web address] Not available 12/31/2022 13:04:53 sore throat: car e instructions [email or web address] Not available 12/31/2022 13:02:13 Use the eye [...] Emergency Medical evaluation for any worsening symptoms. [email or web address] Not available 12/31/2022 13:07:42 01/07/2023 [id number] sore throat: car e instructions Not available 01/07/2023 11:57:17 04/18/2024 [id number] Your ear does no t currently look [...] to keep your upcoming ENT appointment. Ricky dorsey Not available 04/18/2024 09:22:15 06/19/2024 [id number] middle ear fluid : care instructions [email or web address] [...] p A). (CLSI ) Not Available [facility] ([facility]) [address] [facility], [place], [address], 01/02/2023 12:06:18 12/31/19 23 12/31/2022 rapid strep group A, throa t Unknown Analyte Normal = Negati ve Not Available [address] [place], [address], 12/31/2022 11:53:41 12/31/19 23 12/31/2022 rapid strep group A, throa t Unknown Analyte negati ve Not Available [address] [place], [address], 12/31/2022 11:53:41 Result Notes None recorded. Problems Name Problem SNOMED Code Status Onset Date Resolution Date Notes Provider Name and Address Organization Details Recorded Time Otitis externa of left ear 8441664374454 109 Active 2023 Deacon Evans, DO [address] , [place], [address], [place] - [facility] 4 09:49:06 Acute left otitis media 578386756 Active 2023 Deacon Evans, DO [address] , [place], [address], [place] - [facility] 4 11:56:45 Acute serous otitis media of bilateral ears 9007272622447 107 Active 2023 Boyd Dodge, [employer] [address] , [place], [address], [place] - [facility] 4 09:08:47 Bilateral earache 267751799 Active 2023 Boyd Dodge, [employer] [address] , [place], [address], [place] - [facility] 4 09:09:15 Fibromyalgi a 955888660 Active 2022 TONYA DESMITH null, PA - [facility] 3 11:56:52 Migraine 54308141 Active 2022 TONYA DESMITH null, PA - [...] Name and Address Organization Details Recorded Time 173529 Product containin g penicilli n (product) medicatio n rash Not available Not available 12/31/2022 32537 8001 SNOMED TONYA DESMDELPHINE null, PA - [facility] 3 11:54:53 [id number] Reglan medicatio n itching Not available Not available 12/31/2022 9230 RxNorm [facility] - [facility] 3 11:55:04 Medications Name Sig Start [...] Details Last Updated DateTime 4 167.64 cm 00008.4 2 g 98 % 98 % 7 86 /min 97.8 [degF] 97 mm[Hg] 64 mm[Hg] Karla SHIRLEY - [facility] 4 09:32:37 Date Recorded Body height Pain severity - 0-10 verbal numeric rating [Score] - Reported Body temperature Body weight Oxygen saturation Oxygen saturation in Arterial blood by Pulse oximetry Heart rate Systolic blood pressure Diastolic blood pressure Provider Name and Address Organization Details Last Updated DateTime 4 167.64 cm 7 97.1 [degF] 02604.0 1 g 98 % 98 % 90 /min 96 mm[Hg] 65 mm[Hg] Karla Kilgore PA - [facility] 4 08:38:15 Date Recorded Body height Body weight Body mass index (BMI) Heart rate Respiratory rate Body temperature Systolic blood pressure Diastolic blood pressure Provider Name and Address Organization Details Last Updated DateTime 4 167.64 cm 03420.6 g 21.1 kg/m2 68 /min 18 /min [...] Updated DateTime 3 168.91 cm 22.3 kg/m2 18565.9 3 g 5 99 % 99 % 104 /min 20 /min 98.2 [degF] 104 mm[Hg] 70 mm[Hg] TONYA MICHELLE PA - [facility] 3 12:00:10 Date Recorded Body height Body mass index (BMI) Body weight Pain severity - 0-10 verbal numeric rating [Score] - Reported Provider Name and Address Organization Details Last Updated DateTime 01/07/2023 168.91 cm 22.3 kg/m2 98660.93 g 7 TONYA MICHELLE [facility] - [facility] [...] Had A Flu Shot This Season? No Information not available 04/18/2024 What Is Your Water Source? City Information not available 06/19/2024 What Is Your Heat Source? Other Information not available 06/19/2024 Have You Had Direct Contact, Or Contact During Intimacy, With Monkeypox Rash, Scabs, Or Body Fluids From A Person With Monkeypox? No [email or web address] Information not available 04/03/2024 What Was The Date Of Your Most Recent Tobacco Screening? 04/18/2024 [email or web address] Information not available 04/18/2024 Are You Passively [...] SNOMED-CT Code Diagnosis ICD10 Code Diagnosis Note [id number] [address] [place] [address] 03/10/2019 15:42:30 03/10/2019 17:32:00 [id number] [address] [place] [address] 01/26/2022 10:49:30 01/26/2022 12:09:11 [id number] [address] [place] [address] 07/21/2021 11:45:18 07/21/2021 15:15:57 [id number] [address] [place] [address] 12/26/2019 08:04:10 12/26/2019 08:36:06 [id number] [address] [place] [address] 06/11/2022 18:25:04 06/11/2022 19:35:13 [id number] Alessia Mead MD [address] [place] [address] 12/31/2022 11:33:22 12/31/2022 13:09:21 Acute pharyngitis 523451406 J02.9 Acute conj unctivitis of left eye 9150551902 00010 H10.32 [id number] Alessia Mead [facility] [address] [facility] [address] [address] [place] [address] 01/07/2023 10:17:20 01/07/2023 12:01:17 Left without being seen 6541137214 9102 Z53.21 [id number] Deacon Evans DO [address] [facility] [place] [address] 04/03/2024 09:21:52 04/03/2024 10:13:05 Otitis externa of left ear 7836969921 874123 H60.92 See pcp in 3-4 days or return to urgent care in 3-4 days if cant be seen by pcp for follow up. Go to ER if anything worsens. Otc tylenol as needed for pain. Symptomati c treatment. All of patients questions have been answered. Patient has understand ing and agreement of all of this. Acute left otitis media 333154546 H66.92 pt is rx zpak. sx tx. slight erythema to left tm [id number] [facility] [address] [facility] [address] [place] [address] 04/18/2024 08:23:00 04/18/2024 09:23:34 Otalgia of left ear 2938620311 H92.02 [id number] Boyd Dodge NP [address] [facility] [address] [place] [address] 06/19/2024 08:40:12 06/19/2024 09:15:56 Acute serous otitis media of bilateral ears 5832147068 095560 H65.03 You have been diagnosed with a [...] antibiotic resistance . Thank you for using [facility] today - and don't hesitate to contact our office if you have any concerns or questions. Bilateral earache 571502 003 H92.03 Health Concerns Section Related Observation LastModified by Organization Detai ls LastModified Time None Recorded Concern Status LastModified by Organization Details LastModified Time None Recorded Advance Directives Directive None Recorded Payers Encounter Date Sequence Insurance Name Policy Number Policy [place] Covered Member ID [place] Member ID Guarantor Name 12/31/2022 1 [facility] [employer] (MEDICAID HMO) [place] Lismarie Dykes [id number] Lismarie Dykes 01/07/2023 1 [facility] [employer] (MEDICAID HMO) [employer] Lismarie Dykes [id number] Lismarie Dykes 04/03/2024 1 [facility] [employer] (MEDICAID HMO) [employer] Lismarie Dykes [id number] Lismarie Dykes 04/18/2024 1 [facility] [employer] (MEDICAID HMO) [employer] Lismarie Dykes [id number] Lismarie Dykes 06/19/2024 1 [facility] [employer] (MEDICAID HMO) [employer] Lismarie Dykes [id number] Lismarie Dykes Notes Date Note Type Note [...] Alessia Mead MD [address] [place], [address], [place] - [facility] 01/01/2023 13:02:57 04/03/20 24 text/htm l hx of multiple ear infections in past. follows ent for this. has now left ear pain for the past 4 days. getting worse. no trauma. no fevers. no hearing loss. other uri sx. no chance she is pregant or nursing. Deacon Evans DO [address] [place], [address], [place] - [facility] 04/03/2024 11:57:32 04/18/20 24 text/htm [...] ciprodex [facility]ERN No [address] [place], [address], [place] - [facility] 04/18/2024 09:22:30 06/19/20 [...] Dodge NP [address] [place], [address], [place] - [facility] 06/19/2024 09:11:50 OBGyn Episode No OBEpisode recorded.
--- OUTSIDE RECORDS SUMMARY | 2024-12-29 19:27 | XMS_ITS | Encounter Summary ---
Author Organization [facility] Address [address] [place] [address] Care Team Providers Care Computer Discovery Teacher Name Role Phone Ho Araya MD Primary Care Provider [phone] Encounter Details Date Type Department Care Team (Late Contact Info) Description 09/24/2024 Lab Requisition [facility] - Main Lab [address] [facility] [place] [phone] Sergio Gross PA [address] [facility] [address] [place] [phone] Other microscopic hematuria Social History Tobacco Use [...] PM EDT Office Visit Orth[facility] [place] [address] [phone] Diaz Galeana DPM [address] [address] 05/02/2025 10:30 AM EDT Office Visit [facility] Hematology Oncology [address] [place] [phone] MaciClotilde huber, DO [address] [place] [address] documented as of this encounter Procedures Procedure [...] clinical and pathological findings. 10/12/2024 9:06 AM [facility] Addendum electronically signed by Gaetano Fernando MD on 10/12/2024 at 9:06 AM Final Diagnosis Urine, Voided: Negative for high grade urothelial carcinoma. Note: UroVysion testing to follow. 10/12/2024 9:06 AM [facility] Clinical Information [id number], Urine cyto/urine FISH. 10/12/2024 9:06 AM [facility] Gross Description A. Urine, Voided, : [id number] recd 1 TP cyto 1 TP fish. 10/12/2024 9:06 AM [facility] Disclaimer Unless otherwise specified, all tissue is 10% NB formalin fixed and paraffin embedded. 10/12/2024 9:06 AM [facility] Tissue Urine specimen from urethra / Unknown 09/21/2024 09/24/2024 1:47 PM EST us Sergio [facility] PATHOLOGY ORDERABLES Edite d Result - Final [facility] H[facility] LAB [address] [place] [address], documented in this encounter Visit Diagnoses Diagnosis Other microscopic hematuria documented in this encounter Care Teams Computer Discovery Teacher Relationship Specialty Start Date End Date Ho Araya MD [address] [place] [address] PCP - General Internal Medicine 07/25/15 documented as of this encounter
--- OUTSIDE RECORDS SUMMARY | 2024-12-29 19:27 | XMS_ITS | Data Portability ---
Author Organization [place] - [facility], Allergy Address [address] [address] Care Team Providers Care Stencil Cutter Name Role Phone MCKENZIEMARLYN PANCHAL Primary Care Provider [phone] Assessment Encounter Date Assessment Date Assessment LastModified [...] Organization Details Last Modified Time Details Appointments Establish ed 15 2024 10:00A M WALE SANTIZO PA-C Not available Not available Not available [...] >100. 00 Very High Not Available [facility] ([facility]) [address] [place], [address], 10/29/2024 23:16:49 10/28/20 24 10/29/2024 ALLER GENS, ZONE 1 Y085-TpO D pteronyssinu s 0.16 kU/L class 0/I abnormal Not Available [facility] ([facility]) [address] [place], [address], 10/29/2024 23:16:49 10/28/20 24 10/29/2024 ALLER GENS, ZONE 1 Q499-EbH D farinae 0.12 kU/L class 0/I abnormal Not Available [facility] ([facility]) [address] [place], [address], 10/29/2024 23:16:49 10/28/20 24 10/29/2024 ALLER GENS, ZONE 1 S598-WhW CAT dander 0.12 kU/L class 0/I abnormal Not Available [facility] ([facility]) [address] [place], [address], 10/29/2024 23:16:49 10/28/20 24 10/29/2024 ALLER GENS, ZONE 1 O873-YnS dog dander 5.14 kU/L class IV abnormal Not Available [facility] ([facility]) [address] [place], [address], 10/29/2024 23:16:49 10/28/20 24 10/29/2024 ALLER GENS, ZONE 1 b142-BhD bermuda grass <0.10 kU/L class 0 Not Available [facility] ([facility]) [address] [place], [address], 10/29/2024 23:16:49 10/28/20 24 10/29/2024 ALLER GENS, ZONE 1 x481-VmF bluegrass, k[place] <0.10 kU/L class 0 Not Available [facility] ([facility]) [address], [place], [address], 10/29/2024 23:16:49 10/28/20 24 10/29/2024 ALLER GENS, ZONE 1 r271-XxF bahia grass <0.10 kU/L class 0 Not Available [facility] ([facility]) [address], [place], [address], 10/29/2024 23:16:49 10/28/20 24 10/29/2024 ALLER GENS, ZONE 1 V593-LcS cockroach, lao 0.10 kU/L class 0/I abnormal Not Available [facility] ([facility]) [address] [place], [address], 10/29/2024 23:16:49 10/28/20 24 10/29/2024 ALLER GENS, ZONE 1 Q326-VoN penicillium chrysogen <0.10 kU/L class 0 Not Available [facility] ([facility]) [address] [place], [address], 10/29/2024 23:16:49 10/28/20 24 10/29/2024 ALLER GENS, ZONE 1 Z162-AcX cladosporium herbarum <0.10 kU/L class 0 Not Available [facility] ([facility]) [address] [place], [address], 10/29/2024 23:16:49 10/28/20 24 10/29/2024 ALLER GENS, ZONE 1 J416-QuA aspergillus fumigatus <0.10 kU/L class 0 Not Available [facility] ([facility]) [address] [place], [address], 10/29/2024 23:16:49 10/28/20 24 10/29/2024 ALLER GENS, ZONE 1 S900-IjP mucor racemosus <0.10 kU/L class 0 Not Available [facility] ([facility]) [address] [place], [address], 10/29/2024 23:16:49 10/28/20 24 10/29/2024 ALLER GENS, ZONE 1 D950-BdE alternaria alternata <0.10 kU/L class 0 Not Available [facility] ([facility]) [address] [place], [address], 10/29/2024 23:16:49 10/28/20 24 10/29/2024 ALLER GENS, ZONE 1 I884-ReA stemphylium herbarum <0.10 kU/L class 0 Not Available [facility] ([facility]) [address] [place], [address], 10/29/2024 23:16:49 10/28/20 24 10/29/2024 ALLER GENS, ZONE 1 B530-IhO common silver birch 3.39 kU/L class III abnormal Not Available [facility] ([facility]) [address] [place], [address], 10/29/2024 23:16:49 10/28/20 24 10/29/2024 ALLER GENS, ZONE 1 R341-TjI oak, white 10.60 kU/L class IV abnormal Not Available [facility] ([facility]) [address] [place], [address], 10/29/2024 23:16:49 10/28/20 24 10/29/2024 ALLER GENS, ZONE 1 N077-YtC elm, lao <0.10 kU/L class 0 Not Available [facility] ([facility]) [address] [place], [address], 10/29/2024 23:16:49 10/28/20 24 10/29/2024 ALLER GENS, ZONE 1 R642-LqU samira, white <0.10 kU/L class 0 Not Available [facility] ([facility]) [address], [place], [address], 10/29/2024 23:16:49 10/28/20 24 10/29/2024 ALLER GENS, ZONE 1 D714-ByW maple/box elder 0.23 kU/L class 0/I abnormal Not Available [facility] ([facility]) [address], [place], [address], 10/29/2024 23:16:49 10/28/20 24 10/29/2024 ALLER GENS, ZONE 1 J395-MtB hazelnut tree 1.25 kU/L class II abnormal Not Available [facility] ([facility]) [address], [place], [address], 10/29/2024 23:16:49 10/28/20 24 10/29/2024 ALLER GENS, ZONE 1 F228-PmZ hickory, white 0.13 kU/L class 0/I abnormal Not Available [facility] ([facility]) [address], [place], [address], 10/29/2024 23:16:49 10/28/20 24 10/29/2024 ALLER GENS, ZONE 1 U283-EoS white mulberry <0.10 kU/L class 0 Not Available [facility] ([facility]) [address], [place], [address], 10/29/2024 23:16:49 10/28/20 24 10/29/2024 ALLER GENS, ZONE 1 P587-HmC cedar, mountain <0.10 kU/L class 0 Not Available [facility] ([facility]) [address], [place], [address], 10/29/2024 23:16:49 10/28/20 24 10/29/2024 ALLER GENS, ZONE 1 M109-BkE ragweed, short <0.10 kU/L class 0 Not Available [facility] ([facility]) [address], [place], [address], 10/29/2024 23:16:49 10/28/20 24 10/29/2024 ALLER GENS, ZONE 1 P838-LsQ mugwort <0.10 kU/L class 0 Not Available [facility] ([facility]) [address], [place], [address], 10/29/2024 23:16:49 10/28/20 24 10/29/2024 ALLER GENS, ZONE 1 I579-JgO plantain, belarusian <0.10 kU/L class 0 Not Available [facility] ([facility]) [address] [place], [address], 10/29/2024 23:16:49 10/28/20 24 10/29/2024 ALLER GENS, ZONE 1 I600-RfZ pigweed, common <0.10 kU/L class 0 Not Available [facility] ([facility]) [address] [place], [address], 10/29/2024 23:16:49 10/28/20 24 10/29/2024 ALLER GENS, ZONE 1 H241-FvE sheep sorrel <0.10 kU/L class 0 Not Available [facility] ([facility]) [address] [place], [address], 10/29/2024 23:16:49 10/28/20 24 10/29/2024 ALLER GENS, ZONE 1 J763-PbZ nettle <0.10 kU/L class 0 Not Available [facility] ([facility]) [address] [place], [address], 10/29/2024 23:16:49 10/28/20 24 10/29/2024 FOOD ALLER GY PROFI LE P404-LzO egg white 0.21 kU/L class 0/I abnormal Not Available [facility] ([facility]) [address] [place], [address], 10/29/2024 23:16:50 10/28/20 24 10/29/2024 FOOD ALLER GY PROFI LE D779-UmO peanut <0.10 kU/L class 0 Not Available [facility] ([facility]) [address] [place], [address], 10/29/2024 23:16:50 10/28/20 24 10/29/2024 FOOD ALLER GY PROFI LE D513-DlF soybean <0.10 kU/L class 0 Not Available [facility] ([facility]) [address] [place], [address], 10/29/2024 23:16:50 10/28/20 24 10/29/2024 FOOD ALLER GY PROFI LE R337-MzO milk 0.66 kU/L class II abnormal Not Available [facility] ([facility]) [address] [place], [address], 10/29/2024 23:16:50 10/28/20 24 10/29/2024 FOOD ALLER GY PROFI LE M961-SsF clam <0.10 kU/L class 0 Not Available [facility] ([facility]) [address] [place], [address], 10/29/2024 23:16:50 10/28/20 24 10/29/2024 FOOD ALLER GY PROFI LE Z843-BfU shrimp 0.10 kU/L class 0/I abnormal Not Available [facility] ([facility]) [address] [place], [address], 10/29/2024 23:16:50 10/28/20 24 10/29/2024 FOOD ALLER GY PROFI LE G866-ZxA walnut <0.10 kU/L class 0 Not Available [facility] ([facility]) [address] [place], [address], 10/29/2024 23:16:50 10/28/20 24 10/29/2024 FOOD ALLER GY PROFI LE C743-WbO codfish <0.10 kU/L class 0 Not Available [facility] ([facility]) [address] [place], [address], 10/29/2024 23:16:50 10/28/20 24 10/29/2024 FOOD ALLER GY PROFI LE U205-DaA scallop <0.10 kU/L class 0 Not Available [facility] ([facility]) [address], [place], [address], 10/29/2024 23:16:50 10/28/20 24 10/29/2024 FOOD ALLER GY PROFI LE G127-JrO wheat <0.10 kU/L class 0 Not Available [facility] ([facility]) [address], [place], [address], 10/29/2024 23:16:50 10/28/20 24 10/29/2024 FOOD ALLER GY PROFI LE U440-IzM corn <0.10 kU/L class 0 Not Available [facility] ([facility]) [address] [place], [address], 10/29/2024 23:16:50 10/28/20 24 10/29/2024 FOOD ALLER GY PROFI LE Z658-VcY sesame seed <0.10 kU/L class 0 Not Available [facility] ([facility]) [address] [place], [address], 10/29/2024 23:16:50 10/28/20 24 10/29/2024 IMMUN OGLOB ULIN E, TOTAL immunoglobul in E, total 81 IU/mL 6-495 Not Available [facility] ([facility]) [address] [place], [address], 10/29/2024 23:16:50 06/23/20 24 03/18/2024 imagi ng/di agnos tic resul t No observ ation record ed. [email or web address] Not Available 21:06:53 08/06/20 24 audio gram No observ ation record ed. [email or web address] Not Available 2023 15:00:15 08/27/20 24 audio gram No observ ation record ed. [email or web address] Not Available 08/04 11:42:10 Result Notes None recorded. Problems Name Problem SNOMED Code Status Onset Date Resolution Date Notes Provider Name and Address Organization Details Recorded Time Chronic pharyngit is 302066 Active 2016 Chronic sore throat; Note: Date Diagnosed : 11/08/2016 2:47 PM (J31.2) Not Available [facility] 4 02:30:50 Gastroeso phageal reflux disease without esophagit is 347509069 Active 2016 Gastro-es ophageal reflux disease without esophagit is; Note: Date Diagnosed : 11/08/2016 2:47 PM (K21.9) Not Available [facility] 4 02:30:44 Mass of neck 505680086 Active 2014 Localized swelling, mass and lump, neck; Note: Date Diagnosed : 5 5:39 AM (R22.1) Not Available [facility] 4 02:30:45 Neck swelling 930188428 Active 2014 Localized swelling, mass and lump, neck; Note: Date Diagnosed : 5 5:39 AM (R22.1) Not Available [facility] 4 02:30:45 Lesion of oral mucosa 92845619550 51870 Active 2016 Other lesions of oral mucosa; Note: Date Diagnosed : 11/08/2016 2:53 PM (K13.79) Not Available [facility] 4 02:31:01 Tinnitus of left ear 70290993411 06 Active 2023 LAVONNE RODRIGUEZ MD [address] [place] [address], [place], [address] , [place] - [facility] 4 11:32:24 Migraine 56830641 Active 2023 LAVONNE RODRIGUEZ MD [address], [place], [place], [address] , [place] - [facility] [place] 4 11:32:34 Pharyngea l dysphagia 03921815853 105 Active 2023 LAVONNE RODRIGUEZ MD [address] [facility] [place],[address], [place], [place], [address] , [place] - [facility] [place] 4 11:32:47 Abnormal auditory perceptio n 09542641 Active 2023 LAVONNE RODRIGUEZ MD [address], [place], [place], [address] , [place] - [facility] [place] 4 11:33:02 Abnormal auditory perceptio n 39931521 Active 2023 LION HEREDIA MD [address] [facility] [place],[address], [place], [address] , [place] [facility] [place] 4 14:26:32 Neck pain 35028383 Active 2023 LION HEREDIA MD [address] [facility] [place],[address], [place], [address] , [place] [facility] [place] 4 14:26:40 Pain of left temporoma ndibular joint 04548128739 741457 Active 2023 LION HEREDIA MD [address] [facility] [place],[address], [place], [place], [address] , [place] [facility] [place] 4 14:26:28 Posterior rhinorrhe a 33945779 Active 2023 MARY SCHREIBER PA-C [address] [place],[address], [place], [place], [address] , [place] [facility] [place] [facility] 4 10:48:17 Allergic rhinitis 21327534 Active 2023 MARY SCHREIBER PA-C [address] [place],[address], [place], [address] , [place] [facility] [place] 4 10:48:34 Perennial allergic rhinitis 953433959 Active 2023 PATIENCE HUIZAR, RMA [address] [facility] [place] [address], [place], [address] , [facility] - [facility] 08:39:44 Problem Notes None recorded. Procedures Surgical History Date Name Laterality Status Provider Name and Address Organization Details Recorded Time 08/27/20 24 Tympanometry (09283) completed Melodie GANN [address] [facility],[place] [address], [place], [address], [facility] - [facility] 08/27/2024 10:00:48 08/06/20 24 Air & Speech Audio with Tymps (27899, 87781 & 06614) completed SIMBA ALEGRE MA, CCC-A [address] [facility],[place] [address], [place], [address], [facility] - [facility] 08/06/2024 14:03:16 03/18/20 24 Fiberoptic Laryngoscopy (Comprehensive) completed LAVONNE SIM MD [address] [facility],[place] [address], [place], [address], [facility] - [facility] 03/18/2024 11:32:05 03/18/20 24 Air only Audio (88614) completed MELODIE DELCID [address] [facility],[address], [address], [facility] - [facility] 03/18/2024 11:52:00 03/18/20 24 SRT & Speech Recognition (60723) completed MELODIE DELCID [address] [facility],[place] [address], [place], [address], [facility] - [facility] 03/18/2024 11:52:17 11/03/19 18 removal of sebaceous cyst completed Rizwan Castillo [place] - [facility] 03/18/2024 11:23:09 11/03/19 17 Breast augmentation w/implt completed Rizwan Castillo [place] - [facility] 03/18/2024 11:23:46 therapeutic cervical epidural injection completed LAVONNE SIM MD [address] [facility],[place] [address], [place], [address], [facility] - [facility] 03/18/2024 11:24:17 Imaging Results Imaging Date Name Status LastModified by [facility] Details LastModified Time 03/18/2024 imaging/diagno [...] Name and Address Organization Details Recorded Time 65441 penicilli n V potassium medicatio n other Not available Not available 03/16/202419698 5 RxNorm React ion: unkno wn, unspe cifie d;; Not Available [facility] 00:[facility]:41 Medications Name Sig Start Date Stop [...] 1 tablet 2016 active Medicatio n ID: [id number] Pr escribed By Name: Colleen Joseph MD [...] active Not Available Not Available Not Available [facility] 75 mg disintegra ting tablet TAKE 1 TABLET ORALLY ONCE NEEDED FOR MIGRAINE HEADACHE FOR 30 DAYS, MAX DAILY DOSE: 1 TAB active Not Available Not Available No t Available Vitals Date Recorded Body height Body mass index (BMI) Body weight Provider Name and Address Organization Details Last Updated DateTime 05/07/2024 167.64 cm 20.7 kg/m2 15005.82 g Kike Casanova [place] - [facility] 05/07/2024 14:00:00 Date Recorded Body height Body mass index (BMI) Body weight Provider Name and Address Organization Details Last Updated DateTime 08/06/2024 167.64 cm 19.4 kg/m2 87108.08 g Rizwan Castillo [place] - [facility] 08/06/2024 14:18:43 Date Recorded Body height Body mass index (BMI) Body weight Provider Name and Address Organization Details Last Updated DateTime 08/27/2024 167.64 cm 19.4 kg/m2 80983.08 g Kike Casanova [place] - [facility] 08/27/2024 09:35:59 Date Recorded Body height Body mass index (BMI) Body weight Provider Name and Address Organization Details Last Updated DateTime 03/18/2024 167.64 cm 20.7 kg/m2 81912.82 g Rizwan Castillo [place] - [facility] 03/18/2024 11:21:57 Social History Question Answer Notes LastModified by Organizat ion Details LastModified Time Tobacco Smoking Status Never Smoker Rizwan salas [facility] 03/18/2024 11:22:25 What Is Your Level Of Alcohol Consumption? None [email or web address] Information not available 03/18/2024 Do You Use Any Illicit Or Recreational Drugs? No [email or web address] Information not available 03/18/2024 Do You Or Have You Ever Used Any Other Forms Of Tobacco Or Nicotine? No [email or web address] Information not available 03/18/2024 Sex: Unknown Functional Status None recorded. Mental Status None recorded. Family History Nothing Reported. Medical History Condition Response Anesthesia Complications N Arthritis N High Cholesterol N Allergies/Hayfever Y Heart Problems N Anxiety N Hyperlipidemia N Asthma Y Gynecological HistoryNo gynecological history recorded. Obstetrics History GPAL:G 0 P 0 0 0 0 Past Encounters Encounter ID Performer Location Encounter Start Date Encounter Closed Date Diagnosis/Indication Diagnosis SNOMED-CT Code Diagnosis ICD10 Code Diagnosis Note [id number] LAVONNE RODRIGUEZ MD [facility] [address] [address] 03/18/2024 11:13:52 03/18/2024 12:02:33 Tinnitus of left ear 7555656938 106 H93.12 Hearing within normal limits AU.Type A tympanogra ms AU. Migraine 85282186 G43.90 9 Pharyngeal dysphagia 126 8381520 9105 R13.13 She notes a sensation of randomly having a cough with saliva or fluids. Transnasal fiberoptic laryngosco py shows normal vocal fold mobility and no masses Abnormal a uditory perception 63343611 H93.292 Patient presents with sensation of fullness, [...] about fluid in the ear Neck pain 53580400 M54.2 [id number] LION HEREDIA MD [facility] [address] [place] [address] 05/07/2024 13:53:44 05/07/2024 14:43:55 Pain of left temporomandibular joint 2227438211 5620492 M26.622 Abnormal a uditory perception 58609887 H93.292 Neck pain 28295713 M54.2 [id number] LION HEREDIA MD [facility] [address] [place] [address] 08/06/2024 13:30:04 08/06/2024 17:05:24 Abnormal auditory perception 27579354 H93.299 Audiologic al evaluation results: Right ear: [...] Cou ld not maintain a hermetic seal}} [id number] LAVONNE RODRIGUEZ MD [facility] [address] [address] 08/27/2024 09:33:34 08/27/2024 10:32:43 Abnormal auditory perception 09950188 H93.299 Tympanomet ry: Right Ear:{{Type A* Type [...] maintain a hermetic seal}} Posterior rhinorrhea 758 15561 R09.82 Allergic rhinitis 912591 04 J30.9 Health Concerns Section Related Observation LastModified by Organization Detai ls LastModified Time None Recorded Concern Status LastModified by Organization Details LastModified Time None Recorded Advance Directives Directive None Recorded Payers Encounter Date Sequence Insurance Name Policy Number Policy Toscano Covered Member ID Toscano Member ID Guarantor Name 03/18/2024 1 [facility] (MEDICAID REPLACEMENT - HMO) [employer] Lismarie Dykes [id number] Lismarie Dykes 05/07/2024 1 [facility] (MEDICAID REPLACEMENT - HMO) [employer] Lismarie Dykes [id number] Lismarie Dykes 08/06/2024 1 [facility] (MEDICAID REPLACEMENT - HMO) [employer] Lismarie Dykes [id number] Lismarie Dykes 08/27/2024 1 [facility] (MEDICAID REPLACEMENT - HMO) MARIBELL Dykes [id number] Alondra Dykes Notes Date Note Type Note [...] causing her to cough LAVONNE SIM MD [address] [place] [address],[address], [address], [facility] 03/18/2024 12:22:03 05/07/2024 text/html Patient on [...] on her saliva LION HEREDIA MD [address] [facility],[address], [address], [facility] 05/07/2024 14:27:55 08/06/2024 text/html 33-year-old basil driscoll with CRPS and left TMJ presents for evaluation of her ears. She reports recurrent middle ear infections bilaterally and chronic left ear effusion. Reports daily left otalgia and ear popping. Occasional muffled hearing. Her left-sided CRPS pain triggers the otalgia. Denies otorrhea. She has trialed multiple rounds of antibiotics and steroids with minimal relief. Endorses occasional room-spinning dizziness. LION HEREDIA MD [address] [place] [address], [address], [facility] 08/06/2024 17:16:04 08/27/2024 text/html 33-year-old basil driscoll with CRPS and left TMJ presents for [...] been taking Zyrtec daily. LAVONNE SIM MD [address] [place] [address],[place] [address], [place], [address], [facility] 08/30/2024 12:02:43 OBGyn Episode No OBEpisode recorded.
--- OUTSIDE RECORDS SUMMARY | 2024-12-29 19:27 | XMS_ITS | Continuity of Care Document ---
Author Organization [facility] Address [address] [place] [id number]- Care Team Providers Care Rope Rider Name Role Phone Ho Araya MD Primary Care Physician Encounter [facility] Date(s): 11/26/24 - 12/26/[address] [address]- Attending Physician: Admtr, Ar8 Admitting Physician: Admtr, Ar8 Referring Physician: Admtr, Ar8 Encounter Type: Triage [...] 0 Refills, Maintenance, :23:00 PM EST, Tablet, [id number], Partial fill upon patient request if the [...] Refills, Soft Stop, 08/06/24 12:19:00 PM EDT, [facility]/pharmacy #[id number], Partial fill upon patient request if [...] Confirmed Active IUD (intrauterine device) in place, Liletta inserted 09/15/20 Confirmed Active Migraine without aura Confirmed Worsening Active History of partial molar - hcgs followed down to zero and stayed at zero for > 6 months Confirmed Active Dyspareunia in female Confirmed Active Underweight Confirmed Active Social History Social History Type Response Smoking Status Never (less than 100 in lifetime) entered on: 04/12/24 Sex Sex Representation Female (finding) History and physical note * Ryanne Marques MD: PERFORM, MODIFY, MODIFY, SIGN, VERIFY, MODIFY, SIGN Mireya Muñiz MD: SIGN, MODIFY Mireya Muñiz MD: MODIFY Event Display: History and Physical Hospital Authored Date: [id number] Patient: ALONDRA LAWTON Age: 27 years Sex: Female : 1990 Associated Diagnoses: None Author: Ryanne Marques MD Visit Information Chief Complaint: RLQ pain - Pre-op/Admit H&P History of Present Illness is a 27yo who presents to [facility] for follow-up of acute on chronic pelvic pain. Alondra has a history of a SAB diagnosed as molar in April 2018 for which she underwent a D&C on 04/10/18 followed by IPAS the same day for retained products and hematometria. Complains of having constant pelvic pain since that time. She has seen Dr. Garcia on 08/28 and was diagnosed with abdominal myofascial pain syndrome for which she received trigger point injections. Reports this helped for a few minutes, but then the pain came back intensely. She presented to the ED on 09/10 and 09/11 for worsening pain, and received TVUS showing 6cm right ovarian cyst and suspected diagnosis ofPID. She is several pills away from completing treatment with Flagyl/Doxycycline and received ceftriaxone in the ED. She then presented to [facility] on 09/12 and was to continue Ibu/Tyl therapy and use zofran for nausea. Today she presents for follow-up and is in moderate distress due to the continued pain. She reportsit a 08/12 and is unrelieved with Ibu/Tyl which she is taking faithfully around the clock. She reports it is severe enought that she is nauseated and unable to work. Obstetrical History: x2 SAB x2 (one molar) Gynecological History: LMP: 09/03/18 Contraception: condoms--states she cannot take any other forms of BC bc she doesnt tolerate them due to bad migraines STI: GC/CT neg on 09/10 h/o chlamydia January 2018 Past Medical History: Chronic constipation Dysmenorrhea Asthma Chronic pelvic pain in female Dyspareunia in female GERD (gastroesophageal reflux disease) Last pap smear 11/29/16 negative, prior pap in 2013 was ASCUS, no HPV was done Migraine without aura Urinary frequency Past Surgical History: Dilation and suction curettage #1, done in OR: 04/10/18 Dilation and curettage #2, IPAS done in [facility] due to retained products of conception and hematometra: 04/10/18 Breast augmentation Medications:Acetaminophen: 1,000 mg = 2 tablet, By Mouth, Every 6 hours Albuterol: 2 puffs, Inhalation, 4 times a day Desogestrel-Ethinyl Estradiol: 1 tablet, By Mouth, Daily Docusate: 100 mg = 1 capsule, By Mouth, 2 times a day, PRN (for constipation) Doxycycline: 100 mg = 1 capsule, By Mouth, 2 times a day Ferrous Sulfate: 325 mg = 1 tablet, By Mouth, Daily Metronidazole: 500 mg = 1 tablet, By Mouth, Every 12 hours Misoprostol: 800 mcg = 4 tablet, By Mouth, Once, place vaginally, if no bleeding in 24 hours, take another dose Multivitamin, : 1 tablet, By Mouth, Daily Ondansetron: 4 mg = 1 tablet, By Mouth, Every 8 hours Ondansetron: 4 mg = 1 tablet, By Mouth, Every 8 hours, PRN (as needed for nausea/vomiting) Allergies: penicillin (Rash) Reglan (Anxiety state) Family History: Mother: Fibromyalgia; Osteoporosis Father: Asthma; Diabetes mellitus; Fibromyalgia; Hyperlipidemia; Hypertension; Migraine Social History: Alcohol Details: Use: Never. Employment/School Details: Status: Employed. Exercise Details: Regular exercise: No. Home/Environment Details: Living situation: Home/Independent. Lives with: Children, Significant other, FOB of the children. Sexual Details: Sexually involved in last 6 months: Yes. Sexual orientation: Heterosexual. Gender identity: Female. Substance Abuse Details: Use: Never. Tobacco Details: Never smoker Past Medical History Problem list All Problems Urinary frequency / SNOMED CT 280696381 / Confirmed Migraine without aura / SNOMED CT 14166221 / Confirmed / Worsening Last pap smear 11/29/16 negative, prior pap in 2013 was ASCUS, no HPV was done / SNOMED CT 6835821697 / Confirmed GERD (gastroesophageal reflux disease) / SNOMED CT 169007648 / Confirmed Dyspareunia in female / SNOMED CT 589422396 / Confirmed Dysmenorrhea / SNOMED CT 481756265 / Confirmed Chronic pelvic pain in female / SNOMED CT 730029671 / Confirmed Chronic constipation / SNOMED CT 069518427 / Confirmed Asthma / SNOMED CT 440936201 / Confirmed Allergies Allergic Reactions (All) Mild Penicillin- Rash. Severity Not Documented Reglan- Anxiety state. Social History Social History Alcohol Details: Use: Never. Employment/School Details: Status: Employed. Exercise Details: Regular exercise: No. Home/Environment Details: Living situation: Home/Independent. Lives with: Children, Significant other, FOB of the children. Sexual Details: Sexually involved in last 6 months: Yes. Sexual orientation: Heterosexual. Gender identity: Female. Substance Abuse Details: Use: Never. Tobacco Details: Never smoker . Review of Systems Negative Constitutional, Eye, Skin, Head/Neck, ENMT, Respiratory, Cardio, Gastrointestinal, Breast, Gynecologic, Genitourinary, Endocrine, Muscoloskeletal, Immunologic, Hematologic, Lymphatic, Neurologic, Psych reviewed and negative except as noted in HPI. Physical Examination Vital Signs Ambulatory Nursing Intake Results : PHYSICIAN OFFICE FLOWSHEET 09/12/2018 1:10 EST Temperature 98.0 DegF Temperature Route Oral Pulse Rate 66 bpm Respiratory Rate 18 br/min Systolic Blood Pressure 101 mm Hg Diastolic Blood Pressure 58 mm Hg Blood pressure sites Arm, right Mean Arterial Pressure 72 mm Hg Oxygen Saturation 100 % Mode of Delivery (Oxygen) Room air . Last Menstrual Period : LMP 09/11/2018 20:45 EST LMP 09/03/2018 . Physical Exam Constitutional: Normal affect, No acute distress. Respirations are: Normal Exam. Breath sounds are: clear to auscultation, equal bilaterally. Cardiovascular: Regular rate and rhythm, Regular Rate and Rhythm. Abdomen/GI: Tender, tender to deep palpation in RLQ, no CVA tenderness, not Distended, no Guarding,no Rebound tenderness. Gynecologic: External Genitalia Normal exam, Bladder tender, Vagina tender along right uterosacral ligament, Cervix (multiparous, CMT, cervical discharge), Uterus (Normal exam, Size== 6 wk, Position== anteverted), Adnexa some fullness in right side of posterior cul de sac, Anus and perineum normal exam. Extremities: No clubbing, cyanosis or edema present.. Skin: No rash or jaundice.. Neurological/Psychiatric: appearance appropriate, mood and affect stable., Oriented to person, place, time. Results Review General results Today's results : ALL RESULT SECTIONS 09/17/2018 14:44 EST Insurance/Billing Facility Billing [facility] 09/17/2018 14:43 EST Height 170.6 cm Weight 52.3 kg Body Mass Index 17.97 L Body surface area 1.57 BSA [place] 1.6 Systolic Blood Pressure 110 mm Hg Diastolic Blood Pressure 54 mm Hg L Blood pressure sites Arm, right Mean Arterial Pressure 73 mm Hg Ambulatory Intake History Form Ambulatory Intake History Form Allergies reviewed with patient Yes Blood Pressure/Venipuncture All 4 limbs may be used Home Medication information provided by Patient Home Medication Review Done Pain system assessment Absence of pain Reason for Visit pelvic pain since february Smoking cessation Patient has never smoked Weight Obtained Via Standing scale Most recent results Pelvic ultrasound 09/11: No evidence of torsion. Right sided, simple appearing 6cm cyst. No free fluid. Impression and Plan Patient is a 27yo here for follow-up of acute on chronic pelvic pain. This acute pain started about a week ago, but she has had chronic pain in the last 6 month history following D&C for molar . s/p trigger point injections on 08/28. She has been seen multiple times in the ED and in [facility] for severe pain, was treated for PID and received pelvic US's revealing a 6cm complex right ovarian cyst. This cyst has grown slightly over several months, prior imaging showed 4cm in April of this year. She is afebrile with stable vital signs at this time and she has no acute abdomen on exam. However,given her report of severe 10/10 pain, moderated distress at rest and acute distress on exam in theright lower quadrant and 6cm cyst, we believe it is reasonable to perform at least a diagnostic laparoscopy and likely right ovarian cystecomy. There is concern for possible ovarian torsion secondaryto this cyst, although given this pain has been there for a week, this is less likely. I counseled patient specifically that we do not know if her pain will be relieved or altered after cystectomy. She states that she is ok with this knowledge, but cannot continue with this pain and is willing to try this surgical step. Reviewed that it is possible that she has endometriosis which we will be ableto evaluate on laparoscopy. Patient was counseled on risks of surgery as including bleeding (would accept blood products), infection and damage to nerves, vessles bowel or bladder. She knows that we would repair any injury at time of surgery with help of additional specialists if required, and woud discuss everything that takes place in the OR with her post-operatively. All questions answered. Consent signed for diagnostic laparoscopy, possible right ovarian cystectomy, possible righ salpingo- oophorectomy, possible biopsyof endometriosis. Plan: -NPO for surgery tonight -( )Admit orders including T&S/urine hcg -Consented for diagnostic laparoscopy as noted above -Requested observation bed - S1 room [address] Muñiz * Antonino MENENDEZ, Mireya Castanon: PERFORM Event Display: History and Physical Hospital Authored Date: [id number] Attending Attestation: I have seen and evaluated this patient. I have discussed the case and its management with the resident and agree with the findings and plan as documented in the resident???s note. Significant acute on chonic pain. Counseled regarding laparoscopy and cystectomy but that not all her pain issues may be resolved. Radiology * Rojelio Chester: PERFORM Event Display: Radiology Results Scanned Authored Date: [id number] * Evelia Goetz: PERFORM Event Display: Radiology Results Scanned Authored Date: [id number] * Carmita Colin: PERFORM Event Display: Radiology Results Scanned Authored Date: [id number] Note * Susanna Contrerasthe: PERFORM, SIGN, VERIFY Event Display: Patient Education/Instruction Authored Date: [id number] [facility] Transitions Rn Care Coordinator Clinical Summary Person Information Name ALONDRA LAWTON Age 20 Years 1990 12:00 AM PCP Abi Milligan MD PCP Reason for Visit: Allergy Info: penicillin Vital Signs Height Weight BMI Blood Pressure / Temperature Pulse Rate Respiratory Rate 02 Sat Mode of Delivery / Medication Information Albuterol (ProAir HFA 90 mcg/inh inhalation aerosol with adapter) 2 puffs, Inhalation, 4 times a day, 1 each, Refills: 3 Durable Medical Equipment (Aerochamber) , See Instructions, Use with inhaler, 1 each Fluticasone-Salmeterol (Advair Diskus 100 mcg-50 mcg inhalation powder) 1 puffs, Inhalation, twice a day, 60 each, Refills: 3 Multivitamin, ( Multivitamins with Folic Acid 1 mg oral tablet) 1 tablet, Oral, Tomorrow, 90 tablet, Refills: 0 Nitrofurantoin (Macrobid macrocrystals-monohydrate 100 mg oral capsule) 1 capsule, Oral, twice a day, 14 capsule, Refills: 0 Problem List Date Problem 06/13/11 02/06/08 Chronic constipation 02/06/08 Dysmenorrhea 04/17/06 Asthma 03/30/08 Migraine without aura 04/17/06 Acne 06/03/07 Adolescent striae 03/30/08 GERD If the following labs have been performed in the last year, the most recent result is displayed below. Diagnostic Results Lab Result Value Date Lead Hemoglobin A1C LDL HDL Triglycerides Total Cholesterol Disclaimer: The information provided is of a general nature and is intended to be used in conjunction with the recommendations and advice of your health care practitioner. Every effort has been made to ensure that the information provided is accurate and complete at the time it is provided to you however, as your needs change, or, as new information becomes available, different or additional instructions may be required. If you have questions, please consult with your primary care provider or pharmacist, as appropriate. This information is not intended to serve as substitution for assessment and evaluation by a qualified health care provider. If you do not have a primary care provider, you may find a [facility] provider by calling [facility] at [phone]. Patient Education Information Follow-up Details: Patient Education Material: Patient Care team information Care Team Personnel Name: Verenice Ferrara RN Position: [facility] Nurse Member Role: Primary Care Nurse Name: Marilyn Luna RN Position: [facility] RN Member Role: Primary Care Nurse Name: Quiana MENENDEZ, Ho Humphrey Position: Reference Physician Member Role: PCP Address: [address] [place] [address], [place] [address]- Telecom: Care Team Related Persons Name: MARLYN HOWARD Name: SIMON HOWARD Name: REHAN DIXON Name: EVY LAWTON Name: ANTWON NAVA Insurance Providers Guarantor name: ALONDRA LAWTON Health Plan Information #: 1 Payer: [employer] Member Number: NA Policy Number: NA Group Number: NA
== END ==
PROVIDERS: PCP Internal Medicine; Visit Provider Nurse Practitioner Family
DX: D64.9 Anemia, unspecified (principal); E55.9 Vitamin D deficiency, unspecified; G43.709 Chronic migraine without aura, not intractable, without status migrainosus; G90.512 Complex regional pain syndrome I of left upper limb; M54.50 Low back pain, unspecified; R29.2 Abnormal reflex; R20.2 Paresthesia of skin; R25.1 Tremor, unspecified
CPT/HCPCS: 99214; G2211

== ENCOUNTER → 2024-12-29 15:55 | Outpatient (BNVA) | payer OTHER, SELFPAY | PROVIDERS: PCP Internal Medicine; Visit Provider Nurse Practitioner Family ==

== ENCOUNTER 2025-01-11 09:04 | Outpatient (REF) | payer OTHER, SELFPAY ==
--- OUTSIDE RECORDS SUMMARY | 2025-01-11 10:04 | XMS_ITS | Encounter Summary ---
Author Organization [facility] Address [address] [place] [address] Care Team Providers Care Primary School Principal Name Role Phone Ho Araya MD Primary Care Provider [phone] Reason for Visit * Reason Onset Date Comments Referral 10/13/2024 Encounter Details Date Type Department Care Team (Late st Contact Info) Description 10/13/2024 Telephone [facility] Hematology Oncology [address] [place] [phone] Clotilde Lux, DO [address] [place] [address] Referral Social History Tobacco Use Types Packs/Day Years [...] as of this encounter Progress Notes * Shahnaz Castellon - 01/05/2025 11:19 AM EST APPT W/ DR DEISI DUFFY 10/17/25. PATIENT IS ON A CANCELLATION LIST. * Shahnaz Castellon - 10/13/2024 11:04 AM EST Referral sent to: [facility] [address], [place] [address] f:[phone] documented in this encounter Plan of Treatment Upcoming Encounters Date Type Department Care Team (Late st Contact Info) Description 01/24/2025 2:15 PM EDT Office Visit Orthopedic Surgery [facility] [address] [phone] Diaz Galeana, DPM [address] [address] 05/02/2025 10:30 AM EDT Office Visit [facility] Hematology Oncology [address] [place] [phone] Clotilde Lux, [address] [place] [address] documented as of this encounter Visit Diagnoses Not on filedocumented in this encounter Care Teams Primary School Principal Relationship Specialty Start Date End Date Ho Araya MD [address] [place] [id number] PCP - General Internal Medicine 07/25/15 documented as of this encounter
--- OUTSIDE RECORDS SUMMARY | 2025-01-11 10:04 | XMS_ITS | Data Portability ---
Author Organization [place] - [facility], Allergy Address [address] [address] Care Team Providers Care Motorman/Woman Name Role Phone MCKENZIEMARLYN PANCHAL Primary Care Provider [phone] Assessment Encounter Date Assessment Date Assessment LastModified [...] did order allergy testing at her request. [email or web address] Not available 08/30/2024 12:02:28 12/30/2024 12/30/2024 The patient has significant allergies to dog dander, birch, and oak trees. She has multiple dogs at home. We discussed lifestyle modifications, medical therapy versus immunotherapy. The patient is an excellent candidate for immunotherapy with either SCIT vs SLIT. This is at least a 3-5 year commitment and symptoms are not expected to improve quickly. Partial treatment will not result in success of therapy. They will need to followup every 6 months to determine their compliance and success. They are interested in proceeding with immunotherapy and will contact our office to schedule. I have prescribed an epi pen and instructed them to bring it with them the first day of their therapy to be certain that they are comfortable with its use. While they are in therapy they may continue to use antihistamine allergy medications as well as topical nasal sprays to help manage their symptoms. keisha Not available 12/30/2024 10:55:26 Plan of Treatment Reminders Order Date Submit Date Provider Last Modified By Organization Details Last Modified Time Details Appointments Allergy new injection 2024 10:00A [facility] Not available Not available Not available Lab None recorded. Referral None recorded. Procedures allergen immunothe rapy; multiple injection s (PROC) 2024 025 [email or web address] Not available 01/06/2025 09:55:13 allergy testing, skin prick (PROC) 2023 024 [email or web address] Not available 09/27/2024 09:22:26 intraderm al allergy skin testing (PROC) 2023 024 [email or web address] Not available 09/27/2024 09:22:26 pulmonary function test procedure (PROC) 2023 024 [email or web address] Not available 09/27/2024 09:22:26 pulse oximetry (PROC) 2023 024 [email or web address] Not available 09/27/2024 09:22:26 Surgeries None recorded. Imaging None recorded. Medication Orders epinephri ne 0.3 mg/0.3 mL injection , auto-inje ctor 2024 025 [facility]/Pharmacy #[id number], [phone] [place], [address], 12/30/2024 10:26:56 Patient TargetsNo targets recorded. Patient InstructionsNo instructions [...] >100. 00 Very High Not Available [facility] ([facility]) [address] [place], [address], 10/29/2024 23:16:49 10/28/20 24 10/29/2024 ALLER GENS, ZONE 1 C077-RcH D pteronyssinu s 0.16 kU/L class 0/I abnormal Not Available [facility] ([facility]) [address] [place], [address], 10/29/2024 23:16:49 10/28/20 24 10/29/2024 ALLER GENS, ZONE 1 T401-PeW D farinae 0.12 kU/L class 0/I abnormal Not Available [facility] ([facility]) [address] [place], [address], 10/29/2024 23:16:49 10/28/20 24 10/29/2024 ALLER GENS, ZONE 1 N375-RrC CAT dander 0.12 kU/L class 0/I abnormal Not Available [facility] ([facility]) [address] [place], [address], 10/29/2024 23:16:49 10/28/20 24 10/29/2024 ALLER GENS, ZONE 1 F750-ImK dog dander 5.14 kU/L class IV abnormal Not Available [facility] ([facility]) [address] [facility], [place], [address], 10/29/2024 23:16:49 10/28/20 24 10/29/2024 ALLER GENS, ZONE 1 p007-TnX bermuda grass <0.10 kU/L class 0 Not Available [facility] ([facility]) [address] [place], [address], 10/29/2024 23:16:49 10/28/20 24 10/29/2024 ALLER GENS, ZONE 1 e195-DmN bluegrass, [place] <0.10 kU/L class 0 Not Available [facility] ([facility]) [address] [place], [address], 10/29/2024 23:16:49 10/28/20 24 10/29/2024 ALLER GENS, ZONE 1 d420-FjP bahia grass <0.10 kU/L class 0 Not Available [facility] ([facility]) [address] [place], [address], 10/29/2024 23:16:49 10/28/20 24 10/29/2024 ALLER GENS, ZONE 1 Z141-LnM cockroach, indonesian 0.10 kU/L class 0/I abnormal Not Available [facility] ([facility]) [address] [facility] [place], [address], 10/29/2024 23:16:49 10/28/20 24 10/29/2024 ALLER GENS, ZONE 1 Z698-SmO penicillium chrysogen <0.10 kU/L class 0 Not Available [facility] ([facility]) [address] [place], [address], 10/29/2024 23:16:49 10/28/20 24 10/29/2024 ALLER GENS, ZONE 1 B465-FhY cladosporium herbarum <0.10 kU/L class 0 Not Available [facility] ([facility]) [address] [facility] [place], [address], 10/29/2024 23:16:49 10/28/20 24 10/29/2024 ALLER GENS, ZONE 1 D845-FkD aspergillus fumigatus <0.10 kU/L class 0 Not Available [facility] ([facility]) [address] [place], [address], 10/29/2024 23:16:49 10/28/20 24 10/29/2024 ALLER GENS, ZONE 1 B485-JiP mucor racemosus <0.10 kU/L class 0 Not Available [facility] ([facility]) [address] [place], [address], 10/29/2024 23:16:49 10/28/20 24 10/29/2024 ALLER GENS, ZONE 1 V012-AoA alternaria alternata <0.10 kU/L class 0 Not Available [facility] ([facility]) [address] [place], [address], 10/29/2024 23:16:49 10/28/20 24 10/29/2024 ALLER GENS, ZONE 1 I944-AvJ stemphylium herbarum <0.10 kU/L class 0 Not Available [facility] ([facility]) [address] [facility], [place], [address], 10/29/2024 23:16:49 10/28/20 24 10/29/2024 ALLER GENS, ZONE 1 F548-YqL common silver birch 3.39 kU/L class III abnormal Not Available [facility] ([facility]) [address] [facility], [place], [address], 10/29/2024 23:16:49 10/28/20 24 10/29/2024 ALLER GENS, ZONE 1 M724-DnR oak, white 10.60 kU/L class IV abnormal Not Available [facility] ([facility]) [address] [facility], [place], [address], 10/29/2024 23:16:49 10/28/20 24 10/29/2024 ALLER GENS, ZONE 1 S281-VzJ elm, indonesian <0.10 kU/L class 0 Not Available [facility] ([facility]) [address] [facility], [place], [address], 10/29/2024 23:16:49 10/28/20 24 10/29/2024 ALLER GENS, ZONE 1 R625-DqD samira, white <0.10 kU/L class 0 Not Available [facility] ([facility]) [address] [facility], [place], [address], 10/29/2024 23:16:49 10/28/20 24 10/29/2024 ALLER GENS, ZONE 1 B055-AeZ maple/box elder 0.23 kU/L class 0/I abnormal Not Available [facility] ([facility]) [address] [facility], [place], [address], 10/29/2024 23:16:49 10/28/20 24 10/29/2024 ALLER GENS, ZONE 1 V667-HdQ hazelnut tree 1.25 kU/L class II abnormal Not Available [facility] ([facility]) [address] [facility], [place], [address], 10/29/2024 23:16:49 10/28/20 24 10/29/2024 ALLER GENS, ZONE 1 Q237-DfD hickory, white 0.13 kU/L class 0/I abnormal Not Available [facility] ([facility]) [address], [place], [address], 10/29/2024 23:16:49 10/28/20 24 10/29/2024 ALLER GENS, ZONE 1 C954-AaN white mulberry <0.10 kU/L class 0 Not Available [facility] ([facility]) [address] [facility], [place], [address], 10/29/2024 23:16:49 10/28/20 24 10/29/2024 ALLER GENS, ZONE 1 S780-KdE cedar, mountain <0.10 kU/L class 0 Not Available [facility] ([facility]) [address], [place], [address], 10/29/2024 23:16:49 10/28/20 24 10/29/2024 ALLER GENS, ZONE 1 B381-QcD ragweed, short <0.10 kU/L class 0 Not Available [facility] ([facility]) [address] [facility], [place], [address], 10/29/2024 23:16:49 10/28/20 24 10/29/2024 ALLER GENS, ZONE 1 U391-LwB mugwort <0.10 kU/L class 0 Not Available [facility] ([facility]) [address], [place], [address], 10/29/2024 23:16:49 10/28/20 24 10/29/2024 ALLER GENS, ZONE 1 J748-LzV plantain, urdu <0.10 kU/L class 0 Not Available [facility] ([place]) [address], [place], [address], 10/29/2024 23:16:49 10/28/20 24 10/29/2024 ALLER GENS, ZONE 1 P135-CuR pigweed, common <0.10 kU/L class 0 Not Available [facility] ([facility]) [address] [place], [address], 10/29/2024 23:16:49 10/28/20 24 10/29/2024 ALLER GENS, ZONE 1 R599-XhK sheep sorrel <0.10 kU/L class 0 Not Available [facility] ([facility]) [address] [place], [address], 10/29/2024 23:16:49 10/28/20 24 10/29/2024 ALLER GENS, ZONE 1 T329-XvI nettle <0.10 kU/L class 0 Not Available [facility] ([facility]) [address] [place], [address], 10/29/2024 23:16:49 10/28/20 24 10/29/2024 FOOD ALLER GY PROFI LE E242-XnM egg white 0.21 kU/L class 0/I abnormal Not Available [facility] ([facility]) [address] [place], [address], 10/29/2024 23:16:50 10/28/20 24 10/29/2024 FOOD ALLER GY PROFI LE S539-OoR peanut <0.10 kU/L class 0 Not Available [facility] ([facility]) [address] [place], [address], 10/29/2024 23:16:50 10/28/20 24 10/29/2024 FOOD ALLER GY PROFI LE L758-RlS soybean <0.10 kU/L class 0 Not Available [facility] ([facility]) [address] [place], [address], 10/29/2024 23:16:50 10/28/20 24 10/29/2024 FOOD ALLER GY PROFI LE S217-LzR milk 0.66 kU/L class II abnormal Not Available [facility] ([facility]) [address] [place], [address], 10/29/2024 23:16:50 10/28/20 24 10/29/2024 FOOD ALLER GY PROFI LE N552-IzT clam <0.10 kU/L class 0 Not Available [facility] ([facility]) [address] [place], [address], 10/29/2024 23:16:50 10/28/20 24 10/29/2024 FOOD ALLER GY PROFI LE M756-ZkD shrimp 0.10 kU/L class 0/I abnormal Not Available [facility] ([facility]) [address] [place], [address], 10/29/2024 23:16:50 10/28/20 24 10/29/2024 FOOD ALLER GY PROFI LE D416-TnL walnut <0.10 kU/L class 0 Not Available [facility] ([facility]) [address] [place], [address], 10/29/2024 23:16:50 10/28/20 24 10/29/2024 FOOD ALLER GY PROFI LE R254-HtA codfish <0.10 kU/L class 0 Not Available [facility] ([facility]) [address] [place], [address], 10/29/2024 23:16:50 10/28/20 24 10/29/2024 FOOD ALLER GY PROFI LE A810-EyA scallop <0.10 kU/L class 0 Not Available [facility] ([facility]) [address] [place], [address], 10/29/2024 23:16:50 10/28/20 24 10/29/2024 FOOD ALLER GY PROFI LE Y014-VzO wheat <0.10 kU/L class 0 Not Available [facility] ([facility]) [address] [facility], [place], [address], 10/29/2024 23:16:50 10/28/20 24 10/29/2024 FOOD ALLER GY PROFI LE N229-XgA corn <0.10 kU/L class 0 Not Available [facility] ([facility]) [address] [facility], [place], [address], 10/29/2024 23:16:50 10/28/20 24 10/29/2024 FOOD ALLER GY PROFI LE A506-EhM sesame seed <0.10 kU/L class 0 Not Available [facility] ([facility]) [address] [facility], [place], [address], 10/29/2024 23:16:50 10/28/20 24 10/29/2024 IMMUN OGLOB ULIN E, TOTAL immunoglobul in E, total 81 IU/mL 6-495 Not Available [facility] ([facility]) [address] [facility], [place], [address], 10/29/2024 23:16:50 06/23/20 24 03/18/2024 imagi ng/di agnos tic resul t No observ ation record ed. [email or web address] Not Available 21:06:53 08/06/20 24 audio gram No observ ation record ed. [email or web address] Not Available 2023 15:00:15 08/27/20 24 audio gram No observ ation record ed. [email or web address] Not Available 08/04 11:42:10 Result Notes None recorded. Problems Name Problem SNOMED Code Status Onset Date Resolution Date Notes Provider Name and Address Organization Details Recorded Time Chronic pharyngit is 489035 Active 2016 Chronic sore throat; Note: Date Diagnosed : 11/08/2016 2:47 PM (J31.2) Not Available [facility] 02:30:50 Gastroeso phageal reflux disease without esophagit is 251061132 Active 2016 Gastro-es ophageal reflux disease without esophagit is; Note: Date Diagnosed : 11/08/2016 2:47 PM (K21.9) Not Available [facility] 4 02:30:44 Mass of neck 641976651 Active 2014 Localized swelling, mass and lump, neck; Note: Date Diagnosed : 5 5:39 AM (R22.1) Not Available [facility] 4 02:30:45 Neck swelling 080875456 Active 2014 Localized swelling, mass and lump, neck; Note: Date Diagnosed : 5 5:39 AM (R22.1) Not Available [facility] 4 02:30:45 Lesion of oral mucosa 05303624859 47097 Active 2016 Other lesions of oral mucosa; Note: Date Diagnosed : 11/08/2016 2:53 PM (K13.79) Not Available [facility] 4 02:31:01 Tinnitus of left ear 57605967322 06 Active 2023 LAVONNE RODRIGUEZ MD [address] [facility] [address], [place], [address] , [place] - [facility] 4 11:32:24 Migraine 41341165 Active 2023 LAVONNE RODRIGUEZ MD [address] [facility] [address], [place], [address] , [place] [facility] 4 11:32:34 Pharyngea l dysphagia 97820415975 105 Active 2023 LAVONNE RODRIGUEZ MD [address] [facility] [address], [place], [address] , [place] - [facility] 4 11:32:47 Abnormal auditory perceptio n 98290992 Active 2023 LAVONNE RODRIGUEZ MD [address] [facility] [address], [place], [address] , [place] - [facility] 4 11:33:02 Abnormal auditory perceptio n 90765244 Active 2023 LION HEREDIA MD [address], [place], [address] , [facility] - [facility] 4 14:26:32 Neck pain 23049859 Active 2023 LION HEREDIA MD [address], [place], [address] , [facility] - [facility] 4 14:26:40 Pain of left temporoma ndibular joint 50742284187 970120 Active 2023 LION HEREDIA MD [address] [facility] [address],[place] [address], [place], [address] , [place] - [facility] 4 14:26:28 Posterior rhinorrhe a 48962277 Active 2023 MARY SCHREIBER PA-C [address] [facility] [address],[place] [address], [place], [address] , [facility] - [facility] 4 10:48:17 Allergic rhinitis 25599907 Active 2023 MARY SCHREIBER PA-C [address] [facility] [address] [address], [place], [address] , [facility] - [facility] 4 10:48:34 Perennial allergic rhinitis 022323817 Active 2023 [facility] [address] [facility] [address],[place] [address], [place], [address] , [facility] - [facility] 4 08:39:44 Problem Notes None recorded. Procedures Surgical History Date Name Laterality Status Provider Name and Address Organization Details Recorded Time 08/27/20 24 Tympanometry (31687) completed Melodie GANN [address] [facility] [address],[place] [address], [place], [address], [facility] - [facility] 08/27/2024 10:00:48 08/06/20 24 Air & Speech Audio with Tymps (73418, 07449 & 01487) completed SIMBA ALEGRE MA, CCC-A [address] [facility] [address], [place], [address], [place] - [facility] 08/06/2024 14:03:16 03/18/20 24 Fiberoptic Laryngoscopy (Comprehensive) completed LAVONNE SIM MD [address] [facility],[place] [address], [place], [address], [place] - [facility] 03/18/2024 11:32:05 03/18/20 24 Air only Audio (25974) completed [facility] [address] [facility],[address], [address], [place] - [facility] 03/18/2024 11:52:00 03/18/20 24 SRT & Speech Recognition (71388) completed MELODIE DELCID [address] [facility],[place] [address], [place], [address], [place] [facility] 03/18/2024 11:52:17 11/03/19 18 removal of sebaceous cyst completed Rizwan Castillo [place] - [facility] 03/18/2024 11:23:09 11/03/19 17 Breast augmentation w/implt completed Rizwan Castillo [place] - [facility] 03/18/2024 11:23:46 therapeutic cervical epidural injection completed LAVONNE SIM MD [address] [place] [address],[place] [address], [place], [address], [place] - [facility] 03/18/2024 11:24:17 Imaging Results Imaging Date Name Status LastModified by Organiz ation Details LastModified Time 03/18/2024 imaging/diagno stic result completed [email or web address] Information not available 06/23/2024 21:06:53 08/06/2024 audiogram completed [email or web address] Information no t available 08/06/2024 15:00:15 08/27/2024 audiogram completed [email or web address] Information n ot available 08/27/2024 11:42:10 Procedure Notes None recorded. Medical Equipment None Reported. Allergies Allergen ID Allergen Name Allergen Category Reaction Reaction Severity Criticality Documentation Date Start Date Code Code System Note Provider Name and Address Organization Details Recorded Time 70599 penicilli n V potassium medicatio n other Not available Not available 03/16/2024 5 RxNorm React ion: unkno wn, unspe cifie d;; Not Available [facility] 00:[facility] Medications Name Sig Start Date Stop Date Status Note LastModified by Organization Details LastModified Time quetiapin e 25 mg tablet TAKE 1 TABLET BY MOUTH THREE TIMES A DAY NEEDED 01/03 completed Not Available Not Available Not Available cyclobenz aprine 10 mg tablet TAKE 1 TABLET BY MOUTH THREE TIMES A DAY active Not Available Not Available No t Available buspirone 5 mg tablet TAKE 1 TABLET BY MOUTH TWICE A DAY active Not Available Not Available No t Available neomycin- polymyxin -hydrocor t 3.5 mg/mL-10, 000 unit/mL-1 % ear solution INSTILL 3 DROPS INTO AFFECTED EAR(S) TWICE DAILY X 10 DAYS active Not Available Not Available No t Available venlafaxi ne ER 37.5 mg capsule,e xtended release 24 hr TAKE 1 CAPSULE BY MOUTH EVERY DAY 01/03 completed Not Available Not Available Not Available prednison e 10 mg tablet TAKE 4 TABS DAILY X 3 DAYS, 3 TABS DAILY X 3 DAYS, 2 TABS DAILY X 3 DAYS, THEN 1 TAB DAILY X 3 DAYS 12/30 completed Not Available Not Available Not Available clindamyc in HCl 300 mg capsule TAKE 1 CAPSULE BY MOUTH THREE TIMES A DAY FOR 10 DAYS 12/30 completed Not Available Not Available Not Available albuterol sulfate 2.5 mg/3 mL (0.083 %) solution for nebulizat ion TAKE 1 VIAL BY NEBULIZA TION EVERY 4 HOURS NEEDED FOR WHEEZING FOR UP TO 180 DAYS. active Not Available Not Available No t Available Vitamin C 500 mg tablet TAKE 1 TABLET BY MOUTH TWICE A DAY active Not Available Not Available No t Available cetirizin e 10 mg tablet TAKE 1 TABLET BY MOUTH EVERY DAY active Not Available Not Available No t Available azithromy nasra 250 mg tablet TAKE (ORAL) PER PACKAGE DIRECTIO NS FOR 5 DAYS 12/30 completed Not Available Not Available Not Available fluconazo le 150 mg tablet TAKE 1 TABLET BY MOUTH ONCE, REPEAT IN 72 HOURS X 2. active Not Available Not Available No t Available senna 8.6 mg tablet TAKE 1 TABLET BY MOUTH EVERY DAY active Not Available Not Available No t Available sucralfat e 100 mg/mL oral suspensio n TAKE 10 ML BY MOUTH 4X A DAY (WITH MEALS AND NIGHTLY) . TAKE 1 HOUR BEFORE MEALS AND AT BEDTIME active Not Available Not Available No t Available ondansetr on HCl 8 mg tablet TAKE 1 TABLET BY MOUTH EVERY DAY NEEDED X 30 DAYS active Not Available Not Available No t Available meloxicam 15 mg tablet TAKE 1 TABLET BY MOUTH EVERY DAY active Not Available Not Available No t Available promethaz ine 12.5 mg tablet TAKE 1 TABLET BY MOUTH EVERY 6 HOURS NEEDED FOR NAUSEA active Not Available Not Available No t Available metronida zole 0.75 % (37.5 mg/5 gram) vaginal gel INSERT 1 APPLICAT OR VAGINALL Y DAILY AT BEDTIME, X5 DAYS 12/30 completed Not Available Not Available Not Available prednison e 20 mg tablet TAKE 2 TABLETS BY MOUTH EVERY DAY IN THE MORNING FOR 3 DAYS, FOR INFLAMMA TION. 12/30 completed Not Available Not Available Not Available ciproflox acin 500 mg tablet TAKE 1 TABLET BY MOUTH TWICE A DAY FOR 7 DAYS 12/30 completed Not Available Not Available Not Available sulfameth oxazole 800 mg-trimet hoprim 160 mg tablet TAKE 1 TABLET BY MOUTH TWICE A DAY X 7 DAYS 12/30 completed Not Available Not Available Not Available tramadol 50 mg tablet TAKE 1 TABLET BY MOUTH EVERY 8 HOURS NEEDED FOR PAIN FOR UP TO 10 DAYS. active Not Available Not Available No t Available hydromorp stacey 2 mg tablet TAKE 1 TABLET BY MOUTH EVERY 4 HOURS NEEDED FOR PAIN active Not Available Not Available No t Available alprazola m 0.25 mg tablet active Not Available Not Available Not Available cyanocoba lamar (vit B-12) 500 mcg tablet active Not Available Not Available Not Available amitripty line 10 mg tablet TAKE 1 TABLET BY MOUTH EVERYDAY AT BEDTIME 01/03 completed Not Available Not Available Not Available meclizine 25 mg tablet TAKE 1 TABLET NEEDED ORALLY EVERY 8 HRS VERTIGO 30 DAYS 01/03 completed Not Available Not Available Not Available phenazopy ridine 100 mg tablet TAKE 1 TABLET BY MOUTH 3 TIMES A DAY FOR 7 DAYS 12/30 completed Not Available Not Available Not Available baclofen 10 mg tablet TAKE 1 TABLET BY MOUTH THREE TIMES A DAY NEEDED FOR MUSCLE SPASM active Not Available Not Available No t Available pantopraz ole 40 mg tablet,de layed release TAKE 1 TAB BY MOUTH 2X A DAY. TAKE ON EMPTY STOMACH WAIT 30 MINS & THEN EAT B4 BREAKFAS T AND SUPPER active Not Available Not Available No t Available dexametha sone 4 mg tablet TAKE 1 TABLET BY MOUTH EVERY DAY FOR 10 DAYS 12/30 completed Not Available Not Available Not Available fluoromet holone 0.1 % eye drops,koffi pension INSTILL 1 DROP INTO BOTH EYES 4 TIMES A DAY active Not Available Not Available No t Available lidocaine 5 % topical patch APPLY 1 PATCH TOPICALL Y DAILY (REMOVE AFTER 12 HOURS AND KEEP OFF 12 HOURS) active Not Available Not Available No t Available docusate sodium 100 mg capsule TAKE 1 CAPSULE BY MOUTH TWICE A DAY active Not Available Not Available No t Available sertralin e 25 mg tablet TAKE 1 TABLET BY MOUTH EVERY DAY active Not Available Not Available No t Available acetamino phen 300 mg-codein e 60 mg tablet TAKE 1 TABLET BY MOUTH 2 TIMES DAILY NEEDED FOR PAIN FOR UP TO 10 DAYS. active Not Available Not Available No t Available zolpidem 5 mg tablet TAKE 1 TABLET BY MOUTH EVERY DAY AT BEDTIME NEEDED FOR 30 DAYS active Not Available Not Available No t Available ergocalci ferol (vitamin D2) 1,250 mcg (50,000 unit) capsule TAKE 1 CAPSULE BY MOUTH ONCE A WEEK FOR 12 DOSES. active Not Available Not Available No t Available lorazepam 1 mg tablet TAKE 1 TABLET BY MOUTH TWICE A DAY FOR 30 DAYS active Not Available Not Available No t Available epinephri ne 0.3 mg/0.3 mL injection , auto-inje ctor Take 1 auto by injectio n route for 180 days, for anaphyla xis. active Not Available Not Available No t Available methylpre dnisolone 4 mg tablets in a dose pack TAKE 6 TABLETS ON DAY 1 DIRECTED ON PACKAGE AND DECREASE BY 1 TAB EACH DAY FOR A TOTAL OF 6 DAYS 12/30 completed Not Available Not Available Not Available ondansetr on 4 mg disintegr ating tablet DISSOLVE 1 TABLET BY MOUTH EVERY 6 HOURS NEEDED FOR NAUSEA/V OMITING active Not Available Not Available No t Available cefdinir 300 mg capsule TAKE 1 CAPSULE BY MOUTH TWICE A DAY FOR 10 DAYS 12/30 completed Not Available Not Available Not Available fluticaso ne propionat e 50 mcg/actua tion nasal spray,koffi pension SPRAY 2 SPRAYS NASALLY DAILY FOR 5 DAYS active Not Available Not Available No t Available naratript an 2.5 mg tablet TAKE 1 TABLET BY MOUTH EVERY DAY active Not Available Not Available No t Available doxycycli ne hyclate 100 mg tablet TAKE 1 TABLET BY MOUTH EVERY 12 HOURS FOR 7 DAYS 12/30 completed Not Available Not Available Not Available dicyclomi ne 10 mg capsule TAKE 1 CAP BY MOUTH FOUR TIMES A DAY BEFORE MEALS AND BEDTIME. USE NEEDED FOR ABDOMINA L CRAMPING active Not Available Not Available No t Available Ventolin HFA 90 mcg/actua tion aerosol inhaler TAKE 2 PUFFS BY MOUTH EVERY 4 HOURS NEEDED FOR COUGH OR WHEEZING . active Not Available Not Available No t Available oxycodone 5 mg tablet TAKE 1 TABLET BY MOUTH EVERY 6 HOURS NEEDED FOR PAIN active Not Available Not Available No t Available Monica-Lant a 200 mg-200 mg-20 mg/5 mL oral suspensio n TAKE 15 ML BY MOUTH 4 (FOUR) TIMES A DAY (BEFORE MEALS AND NIGHTLY) FOR 7 DAYS. active Not Available Not Available No t Available azithromy nasra 500 mg tablet TAKE 1 TABLET BY MOUTH EVERY DAY FOR 7 DAYS 12/30 completed Not Available Not Available Not Available ciproflox acin 0.3 %-dexamet hasone 0.1 % ear drops,koffi pension INSTILL 4 DROPS INTO AFFECTED EAR(S) TWICE A DAY FOR 7 DAYS 12/30 completed Not Available Not Available Not Available nitrofura ntoin monohydra te/macroc rystals 100 mg capsule TAKE 1 CAPSULE BY MOUTH TWICE A DAY FOR 5 DAYS active Not Available Not Available No t Available pregabali n 150 mg capsule TAKE 1 CAPSULE BY MOUTH THREE TIMES A DAY active Not Available Not Available No t Available pregabali n 200 mg capsule active Not Available Not Available Not Available pregabali n 225 mg capsule TAKE 1 CAPSULE BY MOUTH TWICE A DAY active Not Available Not Available No t Available chlorhexi dine gluconate 0.12 % mouthwash PLEASE SEE ATTACHED FOR DETAILED DIRECTIO NS active Not Available Not Available No t Available sodium fluoride 1.1 % dental paste USE DIRECTED . TWICE DAILY active Not Available Not Available No t Available sodium fluoride 1.1 %-potassi um nitrate 5 % dental paste USE 2-3X/YONG LY, SPIT OUT EXCESS. DO NOT RINSE WITH WATER. NO EATING OR DRINKING FOR 45 MIN AFTER active Not Available Not Available No t Available quetiapin e 50 mg tablet TAKE 1 TABLET BY MOUTH EVERY DAY NEEDED 01/03 completed Not Available Not Available Not Available cholecalc iferol (vitamin D3) 1,250 mcg (50,000 unit) capsule active Not Available Not Available Not Available levocetir izine 5 mg tablet TAKE 1 TABLET (ORAL) EVERY EVENING FOR 90 DAYS active Not Available Not Available No t Available omeprazol e 20 mg tablet,de layed release 1 tablet 2016 active Medicati on ID: [id number] P rescribe d By Name: Colleen jensen MD Brand Name: omeprazo le Send Method: E-Prescr ibed Sub s Allowed: subs OK Speci al Instruct ion: Take 1 tablet by mouth every day beforebr eakfast Medicati onGeneri cName: omeprazo le Not Available Not Available Not Available Gavilax [...] Not Available Not Available No t Available riboflavi n (vitamin B2) 400 mg tablet active Not Available Not Available No t Available Nurtec ODT 75 mg disintegr ating tablet TAKE 1 TABLET ORALLY ONCE NEEDED FOR MIGRAINE HEADACHE FOR 30 DAYS, MAX DAILY DOSE: 1 TAB active Not Available Not Available No t Available Vitals Date Recorded Body height Body mass index (BMI) Body weight Provider Name and Address Organization Details Last Updated DateTime 05/07/2024 167.64 cm 20.7 kg/m2 83101.82 g Kike Casanova [place] [facility] 05/07/2024 14:00:00 Date Recorded Body height Body mass index (BMI) Body weight Provider Name and Address Organization Details Last Updated DateTime 08/06/2024 167.64 cm 19.4 kg/m2 13933.08 g Rizwan Castillo [place] [facility] 08/06/2024 14:18:43 Date Recorded Body height Body mass index (BMI) Body weight Provider Name and Address Organization Details Last Updated DateTime 08/27/2024 167.64 cm 19.4 kg/m2 31587.08 g Kike Casanova [facility] 08/27/2024 09:35:59 Date Recorded Body height Body mass index (BMI) Body weight Provider Name and Address Organization Details Last Updated DateTime 03/18/2024 167.64 cm 20.7 kg/m2 26318.82 g Rizwan Castillo [place] [facility] 03/18/2024 11:21:57 Date Recorded Body height Body mass index (BMI) Body weight Provider Name and Address Organization Details Last Updated DateTime 12/30/2024 167.64 cm 20.3 kg/m2 15694.64 g Renetta Saige [facility] 12/30/2024 10:12:43 Social History Question Answer Notes LastModified by Organizat ion Details LastModified Time Tobacco Smoking Status Never Smoker Rizwan salas [facility] 03/18/2024 11:22:25 What Is Your Level Of Alcohol Consumption? None [email or web address] Information not available 03/18/2024 Do You Use Any Illicit Or Recreational Drugs? No [email or web address] Information not available 03/18/2024 Do You Or Have You Ever Used Any Other Forms Of Tobacco Or Nicotine? No [email or web address] Information not available 03/18/2024 Sex: Unknown Functional [...] Note 512 LAVONNE RODRIGUEZ MD [facility] [address] [address] 03/18/2024 11:13:52 03/18/2024 12:02:33 Tinnitus of left ear 1899008018 106 H93.12 Hearing within normal limits AU.Type A tympanogra ms AU. Migraine 73358383 G43.90 9 Pharyngeal dysphagia 542 7032158 9105 R13.13 She notes a sensation of randomly having a cough with saliva or fluids. Transnasal fiberoptic laryngosco py shows normal vocal fold mobility and no masses Abnormal a uditory perception 03633782 H93.292 Patient presents with sensation of fullness, [...] about fluid in the ear Neck pain 61927021 M54.2 6669 LION HEREDIA MD [facility] [address] [address] 05/07/2024 13:53:44 05/07/2024 14:43:55 Pain of left temporomandibular joint 5138835588 7906882 M26.622 Abnormal a uditory perception 12698034 H93.292 Neck pain 43705151 M54.2 07578 LION HEREDIA MD [facility] [address] [address] 08/06/2024 13:30:04 08/06/2024 17:05:24 Abnormal auditory perception 94989721 H93.299 Audiologic al evaluation results: Right ear: [...] Cou ld not maintain a hermetic seal}} 04198 LAVONNE RODRIGUEZ MD [facility] [address] [address] 08/27/2024 09:33:34 08/27/2024 10:32:43 Abnormal auditory perception 16455881 H93.299 Tympanomet ry: Right Ear:{{Type A* Type [...] maintain a hermetic seal}} Posterior rhinorrhea 758 08311 R09.82 Allergic rhinitis 059938 04 J30.9 19629 MP SRIVASTAVA MD [facility] [address] [address] 12/30/2024 10:02:27 12/30/2024 10:38:00 Allergic rhinitis 65054148 J30.89 Chronic pharyngitis 1400 04 J31.2 Pain of le ft temporomandibular joint 4446673270 9075021 M26.622 Tinnitus of left ear 365 4798555 106 H93.12 Health Concerns Section Related Observation LastModified by Organization Detai ls LastModified Time None Recorded Concern Status LastModified by Organization Details LastModified Time None Recorded Advance Directives Directive None Recorded Payers Encounter Date Sequence Insurance Name Policy Number Policy Toscano Covered Member ID Toscano Member ID Guarantor Name 03/18/2024 1 [facility] (MEDICAID REPLACEMENT - HMO) [place] Lismarie Dykes [id number] Lismarie Dykes 05/07/2024 1 [facility] (MEDICAID REPLACEMENT - HMO) [place] Lismarie Dykes [id number] Lismarie Dykes 08/06/2024 1 [facility] (MEDICAID REPLACEMENT - HMO) [place] Lismarie Dykes [id number] Lismarie Dykes 08/27/2024 1 [facility] (MEDICAID REPLACEMENT - HMO) [place] Lismarie Dykes [id number] Lismarie Dykes 12/30/2024 1 [facility] (MEDICAID REPLACEMENT - HMO) [place] Lismarie Dykes [id number] Lismarie Dykes Notes Date Note Type Note [...] causing her to cough LAVONNE SIM MD [address] [place] [address],[place] [address], [place], [address], [facility] - [facility] 03/18/2024 12:22:03 05/07/2024 text/html Patient [...] on her saliva LION HEREDIA MD [address] [facility],[address], [address], [facility] - [facility] 05/07/2024 14:27:55 08/06/2024 text/html 33-year-old fema [...] occasional room-spinning dizziness. LION HEREDIA MD [address] [facility],[place] [address], [place], [address], [facility] - [facility] 08/06/2024 17:16:04 08/27/2024 text/html 33-year-old fema le with CRPS and [...] been taking Zyrtec daily. LAVONNE SIM MD [address] [facility],[address], [address], [facility] - [facility] 08/30/2024 12:02:43 12/30/2024 text/html 34-year-old fema le with chronic regional pain syndrome and left TMJ presents for allergy test results. She reports her left sided ear pain and pressure are stable. Allergy testing demonstrated moderate sensitivity to dog dander, birch tree, and oak tree. Patient reports her allergy symptoms do not improve with [id number] Zyrtec and Flonase, which she has been taking daily for 7 months. MP SRIVASTAVA MD [address] [facility],[place] [address], [place], [address], [facility] 12/31/2024 08:08:47 OBGyn Episode No OBEpisode recorded.
--- OUTSIDE RECORDS SUMMARY | 2025-01-11 10:04 | XMS_ITS | Encounter Summary ---
Author Organization [facility] Address [address] [place] [address] Care Team Providers Care Cash Teller Name Role Phone Ho Araya MD Primary Care Provider [phone] Encounter Details Date Type Department Care Team (Late Contact Info) Description 09/24/2024 Lab Requisition [facility] - Main Lab [address] [facility] [place] [phone] Sergio Gross PA [address] [facility] [address] [place] [phone] Other microscopic hematuria Social History Tobacco Use [...] PM EDT Office Visit Orthopedic Surgery - [place] [address] [phone] Diaz Galeana DPM [address] [address] 05/02/2025 10:30 AM EDT Office Visit [facility] Hematology Oncology [address] [place] [phone] MaciClotilde huber, DO [address] [place] [address] documented as of this encounter Procedures Procedure [...] clinical and pathological findings. 10/12/2024 9:06 AM [facility] Addendum electronically signed by Gaetano Fernando MD on 10/12/2024 at 9:06 AM Final Diagnosis Urine, Voided: Negative for high grade urothelial carcinoma. Note: UroVysion testing to follow. 10/12/2024 9:06 AM [facility] Clinical Information [id number], Urine cyto/urine FISH. 10/12/2024 9:06 AM [facility] Gross Description A. Urine, Voided, : [id number] recd 1 TP cyto 1 TP fish. 10/12/2024 9:06 AM [facility] Disclaimer Unless otherwise specified, all tissue is 10% NB formalin fixed and paraffin embedded. 10/12/2024 9:06 AM [facility] Tissue Urine specimen from urethra / Unknown 09/21/2024 09/24/2024 1:47 PM EST us Sergio SHIRLEY LAB PATHOLOGY ORDERABLES Edite d Result - Final [facility] [address] [place] [address], documented in this encounter Visit Diagnoses Diagnosis Other microscopic hematuria documented in this encounter Care Teams Cash Teller Relationship Specialty Start Date End Date Ho Araya MD [address] [place] [address] PCP - General Internal Medicine 07/25/15 documented as of this encounter
--- OUTSIDE RECORDS SUMMARY | 2025-01-11 10:04 | XMS_ITS | Clinical Summary ---
Author Organization [facility] Address [address] [place] [address] Phone Care Team Providers Care Coagulating Operator Name Role Phone Ho Araya MD Primary Care Provider [phone] Allergies Active Allergy Reactions Criticality Noted Date [...] then eat to activate the medication 09/24/20 Active diclofenac (VOLTAREN) 1 % topical gel Apply 4 g topically 2 times daily as needed (Thigh pain). 05/12/20 24 Active dicyclomine (BENTYL) 10 mg capsule 03/09/20 24 Active linaCLOtide (Linzess) 145 mcg capsule Take 1 tablet by mouth 1 (one) time each day. 01/24/20 24 Active promethazine (PHENERGAN) 12.5 mg tablet [...] Other (muscle spasm, may cause sedation). 05/30/20 22 Active naratriptan (AMERGE) 2.5 mg tablet Take [...] medication- before breakfast and supper 60 each 09/27/20 24 2024 Active sucralfate (CARAFATE) 100 mg/mL suspension Take 10 mL (1 g total) by mouth 4 (four) times a day (with meals and nightly). Take 1 hour before meals and at bedtime 1200 mL 09/27/20 Active ondansetron (ZOFRAN) 8 mg tablet Take 1 tablet (8 mg total) by mouth 3 (three) times a day. 60 tablet 6 09/27/20 Active nutritional drink (Ensure) liquidIndicati ons:Complex regional pain syndrome type 1, affecting unspecified site,Weight loss,BMI less than 19,adult 1 bottle twice daily for weight loss / Palisade Flavored 60 each 11 09/29/20 24 Active lidocaine (XYLOCAINE) 5 % ointment Apply topically 2 (two) times a day. 35.44 g 11/09/19 25 Active cetirizine (ZyrTEC) 10 mg tablet TAKE 1 TABLET BY MOUTH EVERY DAY 90 tablet 1 12/08/19 25 Active ascorbic acid (VITAMIN C) 500 mg tablet Take 1 tablet (500 mg total) by mouth 2 (two) times a day. 60 each 2 09/22/20 24 2024 Active Problems Problem Noted Date Diagnosed [...] Encounters Date Type Department Care Team Description 12/31/2024 Telephone Orthopedic Surgery - [place] 250 175 [facility] [address] [place] [phone] Nena Zepeda 11/19/2024 Telephone Internal [facility] [place] [address] [place] [phone] Ho Araya MD PT1 (Piero Encarnacion @ [facility]-Rheumatology ) 11/19/2024 Telephone Internal Medicine - [place] [address] [place] [address] Ho Araya MD Letter for School/Work 11/15/2024 12:57 PM EST - 11/15/2024 11:59 PM EST Hospital Encounter [facility] Ultrasound [address] [place] [phone] Cervicalgia Discharge Disposition: Home or Self Care 11/09/2024 Telephone Internal Medicine - [facility] [place] [address] Ho Araya MD faxed refill 11/08/2024 Telephone Gastroenterology - [place] [address] 175 [facility] [address] [place] [phone] Christos Blackwell PA 10/29/2024 11:11 AM EST - 10/29/2024 11:59 PM EST Hospital Encounter [facility] CT Scan [address] [place] [phone] Decreased appetite; Epigastric pain; Nausea; Irritable bowel syndrome, unspecified type Discharge Disposition: Home or Self Care 10/13/2024 Telephone [facility] Hematology Oncology [address] [place] [phone] MaciClotilde beavers DO Referral from Last 3 Months Immunizations Name Administration Dates Next Due Influenza Quadravalent, MDCK , 0.5ml, preservative free (Flucelvax) 6mo and older 10/22/2021 Influenza trivalent, with pr eservative (Fluzone; Afluria) 6mo and older 08/21/2016 Surgical History Surgery Date Site/Laterality Comments BREAST SURGERY PROCEDURE:TRANSUMBILICAL AUGMENTATION MAMMAPLASTY OVARIAN CYST REMOVAL PROCEDURE:OVARIAN CYST REMOVAL OVARIAN CYST REMOVAL N/A PROCEDURE: OK OVARIAN CYSTECTOMY UNI/BI BREAST SURGERY PROCEDURE: OK BREAST AUGMENTATION WITH IMPLANT Medical History Medical [...] PM EDT Office Visit Orthopedic Surgery - [place] [address] [phone] Diaz Galeana, DPM [address] [address] 05/02/2025 10:30 AM EDT Office Visit [facility] Hematology Oncology [address] [place] [phone] Clotilde Lux, [address] [place] [address] Health Maintenance Due Date Last Done Comments Hepatitis B Vaccines (1 of 3 - 19+ 3-dose series) 2011 Pneumococcal Vaccine: Pediatrics (0 to 5 Years) and At-Risk Patients (6 to 64 Years) (1 of 2 - PCV) 2011 Cervical Cancer Screening: Pap Smear 2013 HIV Screening 10/05/2022 Social Influencers of Health Screening 10/05/2022 COVID-19 Vaccine ( - season) 2024 Influenza Vaccine (#1) 2024 , [...] pain Nausea Irritable bowel syndrome, unspecified type DEPRESSION SCREENING Routine 05/12/2024 LIPID PANEL Routine 05/12/2024 HEPATITIS C SCREENING Routine 11/17/2020 from Last 3 Months or Most Recently Relevant to Health Maintenance Results * C-reactive protein (12/29/2024 11:47 AM EST) Blood Venous blood specimen / Unknown Rojelio Oliver MD LAB BLOOD ORDERABLES Final Result * External MRI Report (12/27/2024) Anatomical Region Laterality Modality Magnetic Resonan ce Provider [facility] On[facility] IMG MRI PROCEDURES Final Result * External clinical lab (12/23/2024) Only the most recent of3 resultswithin the time period is included. Provider [facility] LAB BLOOD ORDERABLES Fin al Result * [...] Signed Date: 11/23/2024 08:29 ET Workstation ID: [id number] Transcribed By: Self Edit Transcribed Date: 11/23/2024 [...] Signed Date: 11/23/2024 08:29 ET Workstation ID: [id number] Transcribed By: Self Edit Transcribed Date: 11/23/2024 [...] this age. 3. IUD well-positioned. Telejacki SHIRLEY ([id number]) -------- FINAL REPORT -------- Dictated By: Patrica Ramirez Dictated Date: 11/01/2024 16:12 ET Assigned Physician: Patrica Ramirez Reviewed and Electronically Signed By: Patrica Ramirez Signed Date: 11/01/2024 16:20 ET Workstation ID: [id number] Transcribed By: Self Edit Transcribed Date: 11/01/2024 16:12 ET Narrative 11/01/2024 4:20 PM EST History: Epigastric pain. Early satiety. Comparison: 01/22/24 Technique: Helical volumetric imaging of the abdomen and pelvis was performed following oral contrast and during the uneventful intravenous administration of 90 cc Isovue-370. DLP: 379.35 mGy/cm Next HeathcarepeYouGoDo VCT Iterative reconstruction technique Findings: Bilateral augmentation [...] of 90 cc Isovue-370. DLP: 379.35 mGy/cm IntellinoteT Iterative reconstruction technique Findings: Bilateral augmentation mammoplasty [...] ofthis age. 3. IUD well-positioned. Pattie SHIRLEY ([id number]) -------- FINAL REPORT -------- Dictated By: Patrica Ramirez Dictated Date: 11/01/2024 16:12 ET Assigned Physician: Patrica Ramirez Reviewed and Electronically Signed By: Patrica Ramirez Signed Date: 11/01/2024 16:20 ET Workstation ID: [id number] Transcribed By: Self Edit Transcribed Date: 11/01/2024 16:12 ET Christos SHIRLEY IMG CT PROCEDURES Final Result * Depression Screening (05/12/2024) Depression Screening abstracted Historical Provider HEALTH MAINTENANCE Final Result * Lipid panel (05/12/2024) LDL/HDL Ratio 3 0 - 4 Triglycerides 56 0 - 150 mg/dL Cholesterol 173 0 - 200 mg/dL HDL 68 >=40 mg/dL LDL Cholesterol 94 0 - 100 mg/dL Blood Venous blood specimen / Unknown Result [facility] Historical Provider LAB BLOOD ORDERABLES Katy l Result * Hepatitis C Screening (11/17/2020) Hepatitis C Screening abstracted Historical Provider HEALTH MAINTENANCE Final Result from Last 3 Months or Most Recently Relevant to Health Maintenance Insurance [facility] [place] [place] [address] Care Teams Coagulating Operator Relationship Specialty Start Date End Date Ho Araya MD [address] [place] [address] PCP - General Internal Medicine 07/25/15
--- OUTSIDE RECORDS SUMMARY | 2025-01-11 10:04 | XMS_ITS | Encounter Summary ---
Author Organization [facility] Address [address] [place] [address] Care Team Providers Care Printer Apprentice Name Role Phone Ho Araya MD Primary Care Provider [phone] Reason for Visit * Reason Onset Date Comments Letter for School/Work 11/19/2024 Encounter Details Date Type Department Care Team (Late st Contact Info) Description [facility] [address] [place] [phone] Ho Araya MD [address] [place] [address] Letter for School/Work Social History Tobacco Use [...] - 11/22/2024 12:33 PM EST Badge # [id number] * Chayito Max [place] - 11/19/2024 1:41 [...] PM EDT Office Visit Orthopedic Surgery - [place] [address] [phone] Diaz Galeana DPM [address] [address] 05/02/2025 10:30 AM EDT Office Visit [facility] Hematology Oncology [address] [place] [phone] Clotilde Lux, DO [address] [place] [address] documented as of this encounter Visit Diagnoses Not on filedocumented in this encounter Care Teams Printer Apprentice Relationship Specialty Start Date End Date Ho Araya MD [address] [place] [address] PCP - General Internal Medicine 07/25/15 documented as of this encounter
--- OUTSIDE RECORDS SUMMARY | 2025-01-11 10:04 | XMS_ITS | Clinical Summary ---
Author Organization [facility] Address [address] [place] [address] Care Team Providers Care Leather Currier Name Role Phone Wendi Toney MD Primary [...] age to complete this topic Care Teams Leather Currier Relationship Specialty Start Date End Date Wendi Toney MD [address] [place] [address] PCP - General Internal Medicine 08/31/20
--- OUTSIDE RECORDS SUMMARY | 2025-01-11 10:04 | XMS_ITS | Clinical Summary ---
Author Organization [facility] Address [address] [place] [address] Care Team Providers Care Investment Accounting Clerk Name Role Phone Ho Araya MD Primary Care Provider [phone] Allergies Active Allergy Reactions Criticality Noted Date [...] age to complete this topic Care Teams Investment Accounting Clerk Relationship Specialty Start Date End Date Ho Araya MD PCP - General Internal Medicine 05/19/24
--- OUTSIDE RECORDS SUMMARY | 2025-01-11 10:05 | XMS_ITS | Data Portability ---
Author Organization [facility], [address] Address [address] [place] [address] Assessment No assessment recorded. Plan of Treatment Reminders Order Date Submit Date Provider Last Modified By Organization Details Last Modified Time Details Appointments None recorded. Lab rapid strep group A, throat 2022 023 [email or web address] 5 [address], [address] [place], [address], 3 13:02:13 streptococc us group A, culture, throat 2022 023 [email or web address] [facility], [address] [place] [address], [place], [address], 3 13:11:10 Referral None recorded. Procedures None recorded. Surgeries None recorded. Imaging None recorded. Medication Orders prednisone 20 mg tablet 2023 024 [facility]/Pharmacy #1130, [phone] [place], [address], 4 09:11:00 cefdinir 300 mg capsule 2023 024 [facility]/Pharmacy #1130, [phone] [place], [address], 4 09:10:58 Ciprodex 0.3 %-0.1 % ear drops,suspe nsion 2023 024 [facility]/Pharmacy #1130, [phone] [place], [address], 4 08:57:12 Zithromax Z-Kory 250 mg tablet 2023 024 [facility], [phone] [place], [address], 4 09:49:54 Polytrim 10,000 unit-1 mg/mL eye drops 2022 023 [facility], [phone] [place], [address], 3 10:38:33 Patient TargetsNo targets recorded. Patient Instructions Encounter Date Encounter Id Patient Instructions Last Modified By Organization Details Last Modified Time 12/31/2022 [id number] pinkeye: care instructions Not available 12/31/2022 13:04:53 sore throat: car e instructions [email or web address] Not available 12/31/2022 13:02:13 Use the eye [...] Emergency Medical evaluation for any worsening symptoms. [email or web address] Not available 12/31/2022 13:07:42 01/07/2023 [id number] sore throat: car e instructions Not available 01/07/2023 11:57:17 04/18/2024 [id number] Your ear does no t currently look [...] Ricky dorsey Not available 04/18/2024 09:22:15 06/19/2024 [id number] middle ear fluid : care instructions [email or web address] [...] p A). (CLSI ) Not Available [facility] ([facility]) [address] [facility], [place], [address], 01/02/2023 12:06:18 12/31/19 23 12/31/2022 rapid strep group A, throa t Unknown Analyte Normal = Negati ve Not Available [address] [place], [address], 12/31/2022 11:53:41 12/31/19 23 12/31/2022 rapid strep group A, throa t Unknown Analyte negati ve Not Available [address] [place], [address], 12/31/2022 11:53:41 Result Notes None recorded. Problems Name Problem SNOMED Code Status Onset Date Resolution Date Notes Provider Name and Address Organization Details Recorded Time Otitis externa of left ear 0030570213930 109 Active 2023 Deacon Evans, DO [address] , [place], [address], [place] - [facility] 4 09:49:06 Acute left otitis media 396663297 Active 2023 Deacon Evans, DO [address] , [place], [address], [place] - [facility] 4 11:56:45 Acute serous otitis media of bilateral ears 0362460875162 107 Active 2023 Boyd Dodge, PHYSICS TECHNICAL OFFICER [address] , [place], [address], [place] - [facility] 4 09:08:47 Bilateral earache 844478995 Active 2023 Boyd Dodge, PHYSICS TECHNICAL OFFICER [address] , [place], [address], [place] - [facility] 4 09:09:15 Fibromyalgi a 545781345 Active 2022 TONYA DESMITH null, [place] - [facility] 3 11:56:52 Migraine 06060953 Active 2022 TONYA DESMITH null, PA - [...] Name and Address Organization Details Recorded Time 325262 Product containin g penicilli n (product) medicatio n rash Not available Not available 12/31/2022 03236 8001 SNOMED TONYA DESMDELPHINE null, [place] - [facility] 3 11:54:53 993193 Reglan medicatio n itching Not available Not [...] Details Last Updated DateTime 4 167.64 cm 13396.4 2 g 98 % 98 % 7 [...] DateTime 4 167.64 cm 7 97.1 [degF] 47838.0 1 g 98 % 98 % 90 /min 96 mm[Hg] 65 mm[Hg] Karla Kilgore [place] - [facility] 4 08:38:15 Date Recorded Body height Body weight Body mass index (BMI) Heart rate Respiratory rate Body temperature Systolic blood pressure Diastolic blood pressure Provider Name and Address Organization Details Last Updated DateTime 4 167.64 cm 68111.6 g 21.1 kg/m2 68 /min 18 /min [...] Updated DateTime 3 168.91 cm 22.3 kg/m2 04998.9 3 g 5 99 % 99 % 104 /min 20 /min 98.2 [degF] 104 mm[Hg] 70 mm[Hg] TONYA MICHELLE PA - [facility] 3 12:00:10 Date Recorded Body height Body mass index (BMI) Body weight Pain severity - 0-10 verbal numeric rating [Score] - Reported Provider Name and Address Organization Details Last Updated DateTime 01/07/2023 168.91 cm 22.3 kg/m2 85967.93 g 7 TONYA MICHELLE [facility] - [facility] [...] Had A Flu Shot This Season? No [email or web address] Information not available 04/18/2024 What Is Your Water Source? City Information not available 06/19/2024 What Is Your Heat Source? Other Information not available 06/19/2024 Have You Had Direct Contact, Or Contact During Intimacy, With Monkeypox Rash, Scabs, Or Body Fluids From A Person With Monkeypox? No [email or web address] Information not available 04/03/2024 What Was The Date Of Your Most Recent Tobacco Screening? 04/18/2024 [email or web address] Information not available 04/18/2024 Are You Passively [...] SNOMED-CT Code Diagnosis ICD10 Code Diagnosis Note [id number] [address] [facility] [place] [address] 03/10/2019 15:42:30 03/10/2019 17:32:00 [id number] [address] [facility] [place] [address] 01/26/2022 10:49:30 01/26/2022 12:09:11 [id number] [address] [facility] [place] [address] 07/21/2021 11:45:18 07/21/2021 15:15:57 [id number] [address] [facility] [place] [address] 12/26/2019 08:04:10 12/26/2019 08:36:06 [id number] [address] [facility] [place] [address] 06/11/2022 18:25:04 06/11/2022 19:35:13 [id number] [place]ess[place] [address] [facility] [place] [address] 12/31/2022 11:33:22 12/31/2022 13:09:21 Acute pharyngitis 018098978 J02.9 Acute conj unctivitis of left eye 7070033931 55480 H10.32 [id number] Alessia Mead [facility] [address] [facility] [address] [address] [facility] [place] [address] 01/07/2023 10:17:20 01/07/2023 12:01:17 Left without being seen 5970184528 9102 Z53.21 [id number] Deacon Evans DO [address] [facility] [place] [address] 04/03/2024 09:21:52 04/03/2024 10:13:05 Otitis externa of left ear 0248748628 804690 H60.92 See pcp in 3-4 days or return to urgent care in 3-4 days if cant be seen by pcp for follow up. Go to ER if anything worsens. Otc tylenol as needed for pain. Symptomati c treatment. All of patients questions have been answered. Patient has understand ing and agreement of all of this. Acute left otitis media 550645986 H66.92 pt is rx zpak. sx tx. slight erythema to left tm [id number] [facility] [address] [facility] [address] [facility] [place] [address] 04/18/2024 08:23:00 04/18/2024 09:23:34 Otalgia of left ear 3460979622 H92.02 [id number] Boyd Dodge NP [address] [facility] [address] [facility] [place] [address] 06/19/2024 08:40:12 06/19/2024 09:15:56 Acute serous otitis media of bilateral ears 6906202708 053112 H65.03 You have been diagnosed with a [...] antibiotic resistance . Thank you for using [facility] today - and don't hesitate to contact our office if you have any concerns or questions. Bilateral earache 432160 003 H92.03 Health Concerns Section Related Observation LastModified by Organization Detai ls LastModified Time None Recorded Concern Status LastModified by Organization Details LastModified Time None Recorded Advance Directives Directive None Recorded Payers Encounter Date Sequence Insurance Name Policy Number Policy Toscano Covered Member ID Toscano Member ID Guarantor Name 12/31/2022 1 [facility] PLAN (MEDICAID HMO) [place] Lismarie Dykes [id number] Lismarie Dykes 01/07/2023 1 [facility] PLAN (MEDICAID HMO) [employer] Lismarie Dykes [id number] Lismarie Dykes 04/03/2024 1 [facility] PLAN (MEDICAID HMO) [place] Lismarie Dykes [id number] Lismarie Dykes 04/18/2024 1 [facility] PLAN (MEDICAID HMO) [place] Lismarie Dykes [id number] Lismarie Dykes 06/19/2024 1 [facility] PLAN (MEDICAID HMO) [employer] Lismarie Dykes [id number] Lismarie Dykes Notes Date Note Type Note [...] Alessia Mead MD [address] [place], [address], [place] - [facility] 01/01/2023 13:02:57 04/03/20 24 text/htm l hx of multiple ear infections in past. follows ent for this. has now left ear pain for the past 4 days. getting worse. no trauma. no fevers. no hearing loss. other uri sx. no chance she is pregant or nursing. Deacon Evans DO [address] [place], [address], [place] - [facility] 04/03/2024 11:57:32 04/18/20 [...] ciprodex [facility] No [address] [place], [address], [place] - [facility] 04/18/2024 09:22:30 06/19/20 [...] Dodge NP [address] [place], [address], [place] - [facility] 06/19/2024 09:11:50 OBGyn Episode No OBEpisode recorded.
--- OUTSIDE RECORDS SUMMARY | 2025-01-11 10:05 | XMS_ITS | Continuity of Care Document ---
Author Organization [place] - [facility], [facility] Address [address] [place] [address] Care Team Providers Care Fish Net Stringer Name Role Phone ANNALISASAIDA MARLYN Primary Care Provider Assessment Encounter Date Assessment Date Assessment LastModified by Organization Details LastModified Time 12/30/2024 12/30/2024 The patient has significant allergies [...] nasal sprays to help manage their symptoms. [email or web address] Not available 12/30/2024 10:55:26 Plan of Treatment Reminders Order Date Submit Date Provider Last Modified By Organization Details Last Modified Time Details Appointments Allergy new injection 2024 10:00A M [facility] Not available Not available Not available Lab None recorded. Referral None recorded. Procedures allergen immunothe rapy; multiple injection s (PROC) 2024 025 [email or web address] Not available 01/06/2025 09:55:13 Surgeries None recorded. Imaging None recorded. Medication Orders epinephri ne 0.3 mg/0.3 mL injection , auto-inje ctor 2024 025 [facility]/Pharmacy #[id number], [phone] [place], [address], 12/30/2024 10:26:56 Patient TargetsNo targets recorded. Patient InstructionsNo instructions recorded. Reason for Referral None Reported. Problems Name Problem SNOMED Code Status Onset Date Resolution Date Notes Provider Name and Address Organization Details Recorded Time Chronic pharyngit is 379374 Active 2016 Chronic sore throat; Note: Date Diagnosed : 11/08/2016 2:47 PM (J31.2) Not Available [facility] 4 02:30:50 Gastroeso phageal reflux disease without esophagit is 104336743 Active 2016 Gastro-es ophageal reflux disease without esophagit is; Note: Date Diagnosed : 11/08/2016 2:47 PM (K21.9) Not Available [facility] 4 02:30:44 Mass of neck 512537068 Active 2014 Localized swelling, mass and lump, neck; Note: Date Diagnosed : 5 5:39 AM (R22.1) Not Available [facility] 4 02:30:45 Neck swelling 754168124 Active 2014 Localized swelling, mass and lump, neck; Note: Date Diagnosed : 5 5:39 AM (R22.1) Not Available [facility] 4 02:30:45 Lesion of oral mucosa 68690868372 07060 Active 2016 Other lesions of oral mucosa; Note: Date Diagnosed : 11/08/2016 2:53 PM (K13.79) Not Available [facility] 4 02:31:01 Tinnitus of left ear 66127324161 06 Active 2023 LAVONNE RODRIGUEZ MD [address] [place] [address],[place] [address], [place], [address] , [facility] - [facility] 4 11:32:24 Migraine 62622412 Active 2023 LAVONNE RODRIGUEZ MD [address] [facility], [place], [address] , [place] - [facility] 4 11:32:34 Pharyngea l dysphagia 06693126638 105 Active 2023 LAVONNE RODRIGUEZ MD [address] [facility] [place], [place], [address] , [place] - [facility] 4 11:32:47 Abnormal auditory perceptio n 22279113 Active 2023 LAVONNE RODRIGUEZ MD [address] [facility] [place], [place], [address] , [place] - [facility] 4 11:33:02 Abnormal auditory perceptio n 33373862 Active 2023 LION HEREDIA MD [address] [facility] [place] [address], [place], [address] , [place] - [facility] 4 14:26:32 Neck pain 07516816 Active 2023 LION HEREDIA MD [address] [facility] [place], [place], [address] , [place] - [facility] 4 14:26:40 Pain of left temporoma ndibular joint 42620914948 945279 Active 2023 LION HEREDIA MD [address] [facility] [place],[facility] [address], [place], [address] , [place] - [facility] 4 14:26:28 Posterior rhinorrhe a 72989990 Active 2023 MARY SCHREIBER PA-C [address] [place],[address], [place], [address] , [place] - [facility] 4 10:48:17 Allergic rhinitis 50871901 Active 2023 MARY SCHREIBER PA-C [address] [facility] [place], [place], [address] , [place] - [facility] 4 10:48:34 Perennial allergic rhinitis 751192566 Active 2023 [facility] [address] [facility] [place] [address], [place], [address] , [facility] - [facility] 08:39:44 Problem Notes None recorded. Procedures Surgical History Date Name Laterality Status Provider Name and Address Organization Details Recorded Time 08/27/20 24 Tympanometry (40821) completed Melodie GANN [address] [facility],[place] [address], [place], [address], [facility] - [facility] 08/27/2024 10:00:48 08/06/20 24 Air & Speech Audio with Tymps (03159, 94990 & 04040) completed SIMBA ALEGRE MA, CCC-A [address] [facility],[place] [address], [place], [address], [facility] - [facility] 08/06/2024 14:03:16 03/18/20 24 Fiberoptic Laryngoscopy (Comprehensive) completed LAVONNE SIM MD [address] [facility],[place] [address], [place], [address], [facility] - [facility] 03/18/2024 11:32:05 03/18/20 24 Air only Audio (69571) completed MELODIE DELCID [address] [facility],[address], [address], [facility] - [facility] 03/18/2024 11:52:00 03/18/20 24 SRT & Speech Recognition (97566) completed MELODIE DELCID [address] [facility],[place] [address], [place], [address], [facility] - [facility] 03/18/2024 11:52:17 11/03/19 18 removal of sebaceous cyst completed Rizwan Castillo [place] - [facility] 03/18/2024 11:23:09 11/03/19 17 Breast augmentation w/implt completed Rizwan Castillo [place] - [facility] 03/18/2024 11:23:46 therapeutic cervical epidural injection completed LAVONNE SIM MD [address] [facility],[address], [address], [place] - [facility] 03/18/2024 11:24:17 Imaging Results None recorded. Procedure Notes None recorded. Medical Equipment None Reported. Allergies Allergen ID Allergen Name Allergen Category Reaction Reaction Severity Criticality Documentation Date Start Date Code Code System Note Provider Name and Address Organization Details Recorded Time 87631 penicilli n V potassium medicatio n other Not available Not available 03/16/2024 84068 5 RxNorm React ion: unkno wn, unspe cifie d;; Not Available [facility] 4 00:54:41 Medications Name Sig Start Date Stop [...] 1 tablet 2016 active Medicati on ID: 203203 P rescribe d By Name: Colleen jensen MD Brand Name: omeprazo yamila Send Method: E-Prescr ibed Sub s Allowed: [...] Updated DateTime 12/30/2024 167.64 cm 20.3 kg/m2 54493.64 g Renetta Moulton [place] - [facility] 12/30/2024 10:12:43 Social History Question Answer Notes LastModified by Organizat ion Details LastModified Time Tobacco Smoking Status Never Smoker Rizwan salas [place] - [facility] 03/18/2024 11:22:25 What Is Your Level Of Alcohol Consumption? None [email or web address] Information not available 03/18/2024 Do You Use Any Illicit Or Recreational Drugs? No [email or web address] Information not available 03/18/2024 Do You Or [...] SNOMED-CT Code Diagnosis ICD10 Code Diagnosis Note 47182 MP SRIVASTAVA MD [facility] [address] [address] 12/30/2024 10:02:27 12/30/2024 10:38:00 Allergic rhinitis 83841052 J30.89 Chronic pharyngitis 1400 04 J31.2 Pain of le ft temporomandibular joint 2745131327 6855219 M26.622 Tinnitus of left ear 191 9817018 106 H93.12 Health Concerns Section Related Observation LastModified by Organization Detai ls LastModified Time None Recorded Concern Status LastModified by Organization Details LastModified Time None Recorded Payers Encounter Date Sequence Insurance Name Policy Number Policy Toscano Covered Member ID Toscano Member ID Guarantor Name 12/30/2024 1 [facility] PL[facility] - [facility] (MEDICAID REPLACEMENT - HMO) MARIBELL Dykes [id number] Alondra Dykes Notes Date Note Type Note Provider Name and Address Organization Details Recorded Time 12/30/2024 text/html 34-year-old fema le with chronic regional pain syndrome and left TMJ presents for allergy test results. She reports her left sided ear pain and pressure are stable. Allergy testing demonstrated moderate sensitivity to dog dander, birch tree, and oak tree. Patient reports her allergy symptoms do not improve with obfk-klv-peajtnm Zyrtec and Flonase, which she has been taking daily for 7 months. MP SRIVASTAVA MD [address] [place] [address], [place], [address], [facility] - [facility] 12/31/2024 08:08:47 OBGyn Episode No OBEpisode recorded.
--- OUTSIDE RECORDS SUMMARY | 2025-01-11 10:05 | XMS_ITS | Encounter Summary ---
Author Organization [facility] Address [address] [place] [address] Care Team Providers Care Sales Account Associate Name Role Phone Ho Araya MD Primary Care Provider [phone] Encounter Details Date Type Department Care Team (Late Contact Info) Description 12/31/2024 Telephone Orthopedic Surgery [facility] [address] [address] Nena Zepeda Social History Tobacco Use Types Packs/Day Years [...] as of this encounter Progress Notes * Nena Zepeda - 12/31/2024 3:50 PM EST Request received for copies of the patient's medical bills. Request was sent to the [employer] Department at [employer] <[email or web address]> A copy of this request has been scanned to the patient's chart for reference. documented in this encounter Plan of Treatment Upcoming Encounters Date Type Department Care Team (Late Contact Info) Description 01/24/2025 2:15 PM EDT Office Visit Orthopedic [facility] [address] [address] Diaz Galeana DPM 175 [facility] [address] [place] [address] 05/02/2025 10:30 AM EDT Office Visit [facility] Hematology Oncology [address] [place] [address] Clotilde Lux DO [address] [place] [address] documented as of this encounter Visit Diagnoses Not on filedocumented in this encounter Care Teams Sales Account Associate Relationship Specialty Start Date End Date Ho Araya MD [address] [place] [address] PCP - General Internal Medicine 07/25/15 documented as of this encounter
[2025-01-11 18:24] LABS: MANUAL DIFF FLAG NO
[2025-01-11 18:42] LABS: Basophils Percent Auto 0.8 % (0-2); Eosinophils Percent Auto 0.8 % (0-4); Hematocrit 40.9 % (37.0-47.0); Hemoglobin 13.3 g/dl (12.0-16.0); Imm Gran Abs Auto 0.01 X10*3/uL (0.00-0.03); Imm Gran Pct Auto 0.3 % (0.0-0.4); Lymphocytes Absolute Auto 1.1 X10*3/uL (1.2-4.9); Lymphocytes Percent Auto 29.3 % (20-40); Mean Corpuscular HGB Conc 32.5 g/dl (31.0-35.0); Mean Corpuscular Hemoglobin 30.4 pg (27.0-33.0); Mean Corpuscular Volume 93.4 fL (80.0-98.0); Mean Platelet Volume 11.6 fL (9.4-12.3); Monocytes Absolute Auto 0.2 X10*3/uL (0.1-1.2); Neutrophils Absolute Auto 2.3 x10*3/uL (2.0-8.3); Neutrophils Percent Auto 62.8 % (45-73); Platelet Count 218 X10*3/uL (160-400); Red Blood Count 4.38 X10*6/uL (4.20-5.50); Red Cell Distribution Width 12.4 % (11.0-16.0); White Blood Count 3.7 X10*3/uL (4.8-10.8)
[2025-01-11 19:05] LABS: Alanine Aminotransferase 25 U/L (0-31); Albumin Level 4.9 g/dL (3.5-5.0); Alkaline Phosphatase 65 U/L (39-117); Anion Gap 10 (12-20); Aspartate Amino Transferase 23 U/L (5-31); Bilirubin Total 0.8 mg/dL (0.0-1.0); Blood Urea Nitrogen 13 mg/dL (9-16); Calcium 9.9 mg/dL (8.4-10.2); Carbon Dioxide 25 mmol/L (22-29); Chloride 110 mmol/L (96-108); Estimated Glomerular Filt Rate > 60; Glucose Random 86 mg/dL (60-115); Phosphorus 2.9 mg/dL (2.7-4.5); Potassium 3.7 mmol/L (3.3-5.1); Sodium 141 mmol/L (135-145); Total Protein 8.1 g/dL (6.5-8.0)
[2025-01-12 03:53] LABS: HBS Num1 8.41 mIU/mL (0-7.99); HBc Num1 0.23 S/CO (0.00-0.79); HBsAGNum1 0.24 S/CO (0.00-0.99); HIV AB/AG Nonreactive (Nonreactive); HIV Num 1 0.07 S/CO (0.00-0.99); Hepatitis B Core Antibody Nonreactive (Nonreactive); Hepatitis B Surface Antigen Negative (Negative); ~HepC Num1 0.15 S/CO (0.00-0.79); ~Hepatitis C Antibody Nonreactive (Nonreactive)
[2025-01-12 04:42] LABS: HBS Num2 7.55 mIU/mL (0-7.99); HBS Num3 7.82 mIU/mL (0-7.99); ~Hepatitis B Surface Antibody NONREACTIVE (Nonreactive)
[2025-01-12 09:34] LABS: IgA 133 mg/dL (47-310); IgG 1117 mg/dL (600-1640); IgM 84 mg/dL (50-300)
[2025-01-12 18:54] LABS: Antibody to SS-A Antigen <1.0 NEG AI (<1.0 NEG); Antibody to SS-B Antigen <1.0 NEG AI (<1.0 NEG)
[2025-01-16 04:23] LABS: Angiotensin Converting Enzyme 27 U/L (9-67)
== END 2025-01-11 09:05 | disposition home or self-care (01) ==
LOC: HO.HKASLDS 09:04
PROVIDERS: Visit Provider Nurse Practitioner Family
DX: R68.2 Dry mouth, unspecified (principal); R63.4 Abnormal weight loss; E55.9 Vitamin D deficiency, unspecified; D64.9 Anemia, unspecified; H04.123 Dry eye syndrome of bilateral lacrimal glands; D72.819 Decreased white blood cell count, unspecified; R20.2 Paresthesia of skin; R25.1 Tremor, unspecified
CPT/HCPCS: 36415; 80053; 82164; 82784; 84100; 85025; 86235; 86704; 86706; 86803; 87340; 87389

== ENCOUNTER 2025-01-13 12:55 | Outpatient (AMB) | payer OTHER, SELFPAY ==
[2025-01-13 12:59] VITALS: BP 109/66; PULSE 79; BMI 19.0
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
[2025-01-13 13:16] VITALS: BP 115/75; BP 116/81; PULSE 89; PULSE 92
--- OUTSIDE RECORDS SUMMARY | 2025-01-13 16:15 | XMS_ITS | Encounter Summary ---
Author Organization [facility] Address [address] [place] [address] Care Team Providers Care Recreation Therapist Name Role Phone Ho Araya MD Primary Care Provider [phone] Encounter Details Date Type Department Care Team (Late Contact Info) Description 09/24/2024 Lab Requisition [facility] - Main Lab [address] [facility] [place] [phone] Sergio Gross PA [address] [facility] [address] [place] [phone] Other microscopic hematuria Social History Tobacco Use [...] PM EDT Office Visit Orthopedic Surgery - [place] [address] [phone] Diaz Galeana DPM [address] [address] 05/02/2025 10:30 AM EDT Office Visit [facility] Hematology Oncology [address] [place] [phone] MaciClotilde huber, DO [address] [place] [address] documented as of this encounter Procedures Procedure [...] and pathological findings. 10/12/2024 9:06 AM [facility] Addendum electronically signed by Gaetano Fernando MD on 10/12/2024 at 9:06 AM Final Diagnosis Urine, Voided: Negative for high grade urothelial carcinoma. Note: UroVysion testing to follow. 10/12/2024 9:06 AM [facility] Clinical Information [id number], Urine cyto/urine FISH. 10/12/2024 9:06 AM [facility] Gross Description A. Urine, Voided, : [id number] recd 1 TP cyto 1 TP fish. 10/12/2024 9:06 AM [facility] Disclaimer Unless otherwise specified, all tissue is 10% NB formalin fixed and paraffin embedded. 10/12/2024 9:06 AM [facility] Tissue Urine specimen from urethra / Unknown 09/21/2024 09/24/2024 1:47 PM EST us Sergio [facility] LAB PATHOLOGY ORDERABLES Edite d Result - Final [facility] [address] [place] [address], documented in this encounter Visit Diagnoses Diagnosis Other microscopic hematuria documented in this encounter Care Teams Recreation Therapist Relationship Specialty Start Date End Date Ho Araya MD [address] [place] [id number] PCP - General Internal Medicine 07/25/15 documented as of this encounter
--- OUTSIDE RECORDS SUMMARY | 2025-01-13 16:15 | XMS_ITS | Encounter Summary ---
Author Organization [facility] Address [address] [place] [address] Care Team Providers Care Bun Panner Name Role Phone Ho Araya MD Primary Care Provider [phone] Reason for Visit * Reason Onset Date Comments Letter for School/Work 11/19/2024 Encounter Details Date Type Department Care Team (Late st Contact Info) Description 11/19/2024 [facility] [address] [place] [phone] Ho Araya MD [address] [place] [phone] Letter for School/Work Social History Tobacco Use [...] - 11/22/2024 12:33 PM EST Badge # [id number] * Chayito Max MA - 11/19/2024 1:41 [...] PM EDT Office Visit Orthopedic Surgery - [place] [address] [phone] Diaz Galeana DPM [address] [address] 05/02/2025 10:30 AM EDT Office Visit [facility] Hematology Oncology [address] [place] [phone] Clotilde Lux, DO [address] [place] [address] documented as of this encounter Visit Diagnoses Not on filedocumented in this encounter Care Teams Bun Panner Relationship Specialty Start Date End Date Ho Araya MD [address] [place] [id number] PCP - General Internal Medicine 07/25/15 documented as of this encounter
--- OUTSIDE RECORDS SUMMARY | 2025-01-13 16:15 | XMS_ITS | Clinical Summary ---
Author Organization [facility] Address [address] [place] [address] Phone Care Team Providers Care [employer] Police Officer Name Role Phone Ho Araya MD Primary Care Provider [phone] Allergies Active Allergy Reactions Criticality Noted Date [...] bottle twice daily for weight loss / [place] Flavored 60 each 11 09/29/20 24 Active [...] 11/17/2020 Migraine 07/03/2018 Overview (08/12/2024): Seen at [facility] Pain Management, initial visit 09/26/2020. Nerve blocks and trigger point injections done 10/04/2020 and 01/04/2021. Acne vulgaris 08/21/2016 Asthma 01/09/2012 Encounters Date Type Department Care Team Description 12/31/2024 Telephone Orthopedic Surgery - [place] [address] [facility] [address] [place] [phone] Nena Zepeda 11/19/2024 Telephone Internal Medicine - [place] [address] [place] [phone] Ho Araya MD PT1 (Piero Encarnacion @ [facility]-Rheumatology ) 11/19/2024 Telephone Internal Medicine - [place] [place] [phone] Ho Araya MD Letter for School/Work 11/15/2024 12:57 PM EST - 11/15/2024 11:59 PM EST Hospital Encounter [facility] Ultrasound [address] [place] [address] Cervicalgia Discharge Disposition: Home or Self Care 11/09/2024 [facility] [address] [place], [place] [address] [place] [phone] Ho Araya MD faxed refill 11/08/2024 Telephone Gastroenterology - [place] [address] [facility] [address] [place] [phone] Christos Blackwell PA 10/29/2024 11:11 AM EST - 10/29/2024 11:59 PM EST Hospital Encounter [facility] CT Scan [address] [place] [address] Decreased appetite; Epigastric pain; Nausea; Irritable bowel syndrome, unspecified type Discharge Disposition: Home or Self Care from Last 3 Months Immunizations Name Administration [...] Migraines 07/03/2018 DX:Migraines; CO MMENT: Seen at [facility] Pain Management, initial visit 09/26/2020. Nerve blocks [...] PM EDT Office Visit Orthopedic Surgery - [place] [address] [phone] Diaz Galeana, DPM [address] [address] 05/02/2025 10:30 AM EDT Office Visit [facility] Hematology Oncology [address] [place] [phone] Clotilde Lux, [address] [place] [address] Health Maintenance Due Date Last Done Comments [...] Anatomical Region Laterality Modality Magnetic Resonan ce us Provider [facility] MRI PROCEDURES Final Result * External clinical lab (12/23/2024) Only the most recent of3 resultswithin the time period is included. us Provider [facility] LAB BLOOD ORDERABLES Fin al Result * [...] Date: 11/23/2024 08:27 ET Assigned Physician: Steven Oteor Reviewed and Electronically Signed By: Steven Otero Signed Date: 11/23/2024 08:29 ET Workstation ID: [id number] Transcribed By: Self Edit Transcribed Date: 11/23/2024 [...] Signed Date: 11/23/2024 08:29 ET Workstation ID: [id number] Transcribed By: Self Edit Transcribed Date: 11/23/2024 [...] this age. 5. IUD well-positioned. Telerad PA ([id number]) -------- FINAL REPORT -------- Dictated By: Patrica Ramirez Dictated Date: 11/01/2024 16:12 ET Assigned Physician: Patrica Ramirez Reviewed and Electronically Signed By: Patrica Ramirez Signed Date: 11/01/2024 16:20 ET Workstation ID: [id number] Transcribed By: Self Edit Transcribed Date: 11/01/2024 16:12 ET Narrative 11/01/2024 4:20 PM EST History: Epigastric pain. Early satiety. Comparison: 01/22/24 Technique: Helical volumetric imaging of the abdomen and pelvis was performed following oral contrast and during the uneventful intravenous administration of 90 cc Isovue-370. DLP: 379.35 mGy/cm [employer] VCT Iterative reconstruction technique Findings: Bilateral augmentation [...] of 90 cc Isovue-370. DLP: 379.35 mGy/cm [employer]ar[employer] Iterative reconstruction technique Findings: Bilateral augmentation mammoplasty [...] ofthis age. 5. IUD well-positioned. Telerad PA ([id number]) -------- FINAL REPORT -------- Dictated By: Patrica Ramirez Dictated Date: 11/01/2024 16:12 ET Assigned Physician: Patrica Ramirez Reviewed and Electronically Signed By: Patrica Ramirez Signed Date: 11/01/2024 16:20 ET Workstation ID: [id number] Transcribed By: Self Edit Transcribed Date: 11/01/2024 16:12 ET Christos [facility] IMG CT PROCEDURES Final Result * Depression Screening (05/12/2024) Depression Screening abstracted Historical Provider HEALTH MAINTENANCE Final Result * Lipid panel (05/12/2024) Pathologist [facility] LDL/HDL Ratio 3 0 - 4 Triglycerides 56 0 - 150 mg/dL Cholesterol 173 0 - 200 mg/dL HDL 68 >=40 mg/dL LDL Cholesterol 94 0 - 100 mg/dL Blood Venous blood specimen / Unknown Result [facility] Historical Provider LAB BLOOD ORDERABLES Katy l Result * Hepatitis C Screening (11/17/2020) Pathologist [facility] Hepatitis C Screening abstracted Result [facility] Historical Provider HEALTH MAINTENANCE Final Result from Last 3 Months or Most Recently Relevant to Health Maintenance Insurance [facility] Care Teams [employer] Police Officer Relationship Specialty Start Date End Date Ho Araya MD [address] [place] [id number] PCP - General Internal Medicine 07/25/15
--- OUTSIDE RECORDS SUMMARY | 2025-01-13 16:15 | XMS_ITS | Data Portability ---
Author Organization [facility], [address] Address [address] [place] [address] Assessment No assessment recorded. Plan of Treatment Reminders Order Date Submit Date Provider Last Modified By Organization Details Last Modified Time Details Appointments None recorded. Lab rapid strep group A, throat 2022 023 [email or web address] 5 [address], [address] [place], [address], 3 13:02:13 streptococc us group A, culture, throat 2022 023 [email or web address] [facility], [address] [place] [address], [place], [address], 3 13:11:10 Referral None recorded. Procedures None recorded. Surgeries None recorded. Imaging None recorded. Medication Orders prednisone 20 mg tablet 2023 024 [facility]/Pharmacy #1130, [phone] [place], [address], 4 09:11:00 cefdinir 300 mg capsule 2023 024 [facility]/Pharmacy #1130, [phone] [place], [address], 4 09:10:58 Ciprodex 0.3 %-0.1 % ear drops,suspe nsion 2023 024 [facility]/Pharmacy #1130, [phone] [place], [address], 4 08:57:12 Zithromax Z-Kory 250 mg tablet 2023 024 [facility] [phone] [place], [address], 4 09:49:54 Polytrim 10,000 unit-1 mg/mL eye drops 2022 023 [facility] [phone] [place], [address], 3 10:38:33 Patient TargetsNo targets recorded. Patient Instructions Encounter Date Encounter Id Patient Instructions Last Modified By Organization Details Last Modified Time 12/31/2022 [id number] pinkeye: care instructions [email or web address] Not available 12/31/2022 13:04:53 sore throat: car e instructions [email or web address] Not available 12/31/2022 13:02:13 Use the eye [...] Emergency Medical evaluation for any worsening symptoms. [email or web address] Not available 12/31/2022 13:07:42 01/07/2023 [id number] sore throat: car e instructions Not available 01/07/2023 11:57:17 04/18/2024 [id number] Your ear does no t currently look [...] Ricky dorsey Not available 04/18/2024 09:22:15 06/19/2024 [id number] middle ear fluid : care instructions [email or web address] [...] p A). (CLSI ) Not Available [facility] ([facility]) [address] [facility] [address], [place], [address], 01/02/2023 12:06:18 12/31/19 23 12/31/2022 rapid strep group A, throa t Unknown Analyte Normal = Negati ve Not Available [address] [place], [address], 12/31/2022 11:53:41 12/31/19 23 12/31/2022 rapid strep group A, throa t Unknown Analyte negati ve Not Available [address] [place], [address], 12/31/2022 11:53:41 Result Notes None recorded. Problems Name Problem SNOMED Code Status Onset Date Resolution Date Notes Provider Name and Address Organization Details Recorded Time Otitis externa of left ear 3740663525632 109 Active 2023 Deacon Evans, DO [address] , [place], [address], [place] - [facility] 4 09:49:06 Acute left otitis media 042363025 Active 2023 Deacon Evans, DO [address] , [place], [address], [place] - [facility] 4 11:56:45 Acute serous otitis media of bilateral ears 7878518753495 107 Active 2023 Boyd Dodge, TONAL REGULATOR [address] , [place], [address], [place] - [facility] 4 09:08:47 Bilateral earache 426639944 Active 2023 Boyd Dodge, TONAL REGULATOR [address] , [place], [address], [place] - [facility] 4 09:09:15 Fibromyalgi a 628357021 Active 2022 TONYA DESMITH null, [place] - [facility] 3 11:56:52 Migraine 32678027 Active 2022 TONYA DESMITH null, PA - [...] Name and Address Organization Details Recorded Time 565981 Product containin g penicilli n (product) medicatio n rash Not available Not available 12/31/2022 73887 8001 SNOMED TONYA DESMDELPHINE null, [place] - [facility] 3 11:54:53 263340 Reglan medicatio n itching Not available Not [...] Details Last Updated DateTime 4 167.64 cm 45162.4 2 g 98 % 98 % 7 [...] DateTime 4 167.64 cm 7 97.1 [degF] 97861.0 1 g 98 % 98 % 90 /min 96 mm[Hg] 65 mm[Hg] Karla Kilgore [place] - [facility] 4 08:38:15 Date Recorded Body height Body weight Body mass index (BMI) Heart rate Respiratory rate Body temperature Systolic blood pressure Diastolic blood pressure Provider Name and Address Organization Details Last Updated DateTime 4 167.64 cm 46941.6 g 21.1 kg/m2 68 /min 18 /min [...] Updated DateTime 3 168.91 cm 22.3 kg/m2 46078.9 3 g 5 99 % 99 % 104 /min 20 /min 98.2 [degF] 104 mm[Hg] 70 mm[Hg] TONYA MICHELLE PA - [facility] 3 12:00:10 Date Recorded Body height Body mass index (BMI) Body weight Pain severity - 0-10 verbal numeric rating [Score] - Reported Provider Name and Address Organization Details Last Updated DateTime 01/07/2023 168.91 cm 22.3 kg/m2 03152.93 g 7 TONYA MICHELLE [facility] - [facility] [...] Had A Flu Shot This Season? No [email or web address] Information not available 04/18/2024 What Is Your Water Source? City Information not available 06/19/2024 What Is Your Heat Source? Other Information not available 06/19/2024 Have You Had Direct Contact, Or Contact During Intimacy, With Monkeypox Rash, Scabs, Or Body Fluids From A Person With Monkeypox? No [email or web address] Information not available 04/03/2024 What Was The Date Of Your Most Recent Tobacco Screening? 04/18/2024 [email or web address] Information not available 04/18/2024 Are You Passively [...] SNOMED-CT Code Diagnosis ICD10 Code Diagnosis Note [id number] [address] [place] [address] 03/10/2019 15:42:30 03/10/2019 17:32:00 [id number] [address] [place] [address] 01/26/2022 10:49:30 01/26/2022 12:09:11 [id number] [address] [place] [address] 07/21/2021 11:45:18 07/21/2021 15:15:57 [id number] [address] [place] [address] 12/26/2019 08:04:10 12/26/2019 08:36:06 [id number] [address] [place] [address] 06/11/2022 18:25:04 06/11/2022 19:35:13 [id number] [place]essia Mead [place] [address] [place] [address] 12/31/2022 11:33:22 12/31/2022 13:09:21 Acute pharyngitis 629749447 J02.9 Acute conj unctivitis of left eye 7499950183 83612 H10.32 [id number] Alessia Mead [facility] [address] [facility] [address] [place] [address] 01/07/2023 10:17:20 01/07/2023 12:01:17 Left without being seen 1642698932 9102 Z53.21 [id number] Deacon Evans DO [address] [facility] [address] [place] [address] 04/03/2024 09:21:52 04/03/2024 10:13:05 Otitis externa of left ear 7677407990 936358 H60.92 See pcp in 3-4 days or return to urgent care in 3-4 days if cant be seen by pcp for follow up. Go to ER if anything worsens. Otc tylenol as needed for pain. Symptomati c treatment. All of patients questions have been answered. Patient has understand ing and agreement of all of this. Acute left otitis media 634592232 H66.92 pt is rx zpak. sx tx. slight erythema to left tm [id number] [facility] [address] [facility] [address] [place] [address] 04/18/2024 08:23:00 04/18/2024 09:23:34 Otalgia of left ear 5705477859 H92.02 [id number] Boyd Dodge NP [address] [facility] [address] [place] [address] 06/19/2024 08:40:12 06/19/2024 09:15:56 Acute serous otitis media of bilateral ears 7498398682 530281 H65.03 You have been diagnosed with a [...] antibiotic resistance . Thank you for using [email or web address] today - and don't hesitate to contact our office if you have any concerns or questions. Bilateral earache 265652 003 H92.03 Health Concerns Section Related Observation LastModified by Organization Detai ls LastModified Time None Recorded Concern Status LastModified by Organization Details LastModified Time None Recorded Advance Directives Directive None Recorded Payers Encounter Date Sequence Insurance Name Policy Number Policy Toscano Covered Member ID Toscano Member ID Guarantor Name 12/31/2022 1 [employer] (MEDICAID HMO) [employer] Lismarie Dykes [id number] Lismarie Dykes 01/07/2023 1 [employer] (MEDICAID HMO) [employer] Lismarie Dykes [id number] Lismarie Dykes 04/03/2024 1 [employer] (MEDICAID HMO) [employer] Lismarie Dykes [id number] Lismarie Dykes 04/18/2024 1 [employer] (MEDICAID HMO) [employer] Lismarie Dykes [id number] Lismarie Dykes 06/19/2024 1 [employer] (MEDICAID HMO) [employer] Lismarie Dykes [id number] Lismarie Dykes Notes Date Note Type Note [...] Alessia Mead MD [address] [place], [address], [place] - [facility] 01/01/2023 13:02:57 04/03/20 24 text/htm l hx of multiple ear infections in past. follows ent for this. has now left ear pain for the past 4 days. getting worse. no trauma. no fevers. no hearing loss. other uri sx. no chance she is pregant or nursing. Deacon Evans DO [address] [place], [address], [place] - [facility] 04/03/2024 11:57:32 04/18/20 [...] ciprodex [facility] No [address] [place], [address], [place] - [facility] 04/18/2024 09:22:30 06/19/20 [...] Dodge NP [address] [place], [address], [place] - [facility] 06/19/2024 09:11:50 OBGyn Episode No OBEpisode recorded.
--- OUTSIDE RECORDS SUMMARY | 2025-01-13 16:15 | XMS_ITS | Continuity of Care Document ---
Author Organization [place] - [facility], [facility] Address [address] [place] [address] Care Team Providers Care Furnace Repairer Name Role Phone ANNALISASAIDA MARLYN Primary Care Provider [phone] Assessment Encounter Date Assessment Date Assessment LastModified [...] Allergy new injection 2024 10:00A M [facility] Not available Not available Not available Lab None recorded. Referral None recorded. Procedures allergen immunothe rapy; multiple injection s (PROC) 2024 025 [email or web address] Not available 01/06/2025 09:55:13 Surgeries None recorded. Imaging None recorded. Medication Orders epinephri ne 0.3 mg/0.3 mL injection , auto-inje ctor 2024 025 [facility]/Pharmacy #6043, [phone] [place], [address], 12/30/2024 10:26:56 Patient TargetsNo targets recorded. Patient InstructionsNo instructions recorded. Reason for Referral None Reported. Problems Name Problem SNOMED Code Status Onset Date Resolution Date Notes Provider Name and Address Organization Details Recorded Time Chronic pharyngit is 030341 Active 2016 Chronic sore throat; Note: Date Diagnosed : 11/08/2016 2:47 PM (J31.2) Not Available [facility] 4 02:30:50 Gastroeso phageal reflux disease without esophagit is 941526701 Active 2016 Gastro-es ophageal reflux disease without esophagit is; Note: Date Diagnosed : 11/08/2016 2:47 PM (K21.9) Not Available [facility] 4 02:30:44 Mass of neck 057446802 Active 2014 Localized swelling, mass and lump, neck; Note: Date Diagnosed : 5 5:39 AM (R22.1) Not Available [facility] 4 02:30:45 Neck swelling 947332674 Active 2014 Localized swelling, mass and lump, neck; Note: Date Diagnosed : 5 5:39 AM (R22.1) Not Available [facility] 4 02:30:45 Lesion of oral mucosa 08770946531 95112 Active 2016 Other lesions of oral mucosa; Note: Date Diagnosed : 11/08/2016 2:53 PM (K13.79) Not Available [facility] 4 02:31:01 Tinnitus of left ear 12192474483 06 Active 2023 LAVONNE RODRIGUEZ MD [address] [place] [address],[place] [address], [place], [address] , [facility] - [facility] 4 11:32:24 Migraine 30068563 Active 2023 LAVONNE RODRIGUEZ MD [address] [facility],[address], [place], [address] , [place] - [facility] [place] 4 11:32:34 Pharyngea l dysphagia 07455146340 105 Active 2023 LAVONNE RODRIGUEZ MD [address] [facility] [place],[address], [place], [address] , [place] - [facility] [place] 4 11:32:47 Abnormal auditory perceptio n 25856756 Active 2023 LAVONNE RODRIGUEZ MD [address] [facility] [place],[address], [place], [address] , [place] - [facility] 4 11:33:02 Abnormal auditory perceptio n 25104566 Active 2023 LION HEREDIA MD [address] [facility] [place] [address], [place], [address] , [place] - [facility] 4 14:26:32 Neck pain 21318821 Active 2023 LION HEREDIA MD [address] [facility] [place],[address], [place], [address] , [place] - [facility] 4 14:26:40 Pain of left temporoma ndibular joint 48988155409 475464 Active 2023 LION HEREDIA MD [address] [facility] [place],[facility] [address], [place], [address] , [place] - [facility] [place] 4 14:26:28 Posterior rhinorrhe a 29149170 Active 2023 MARY SCHREIBER PA-C [address], [place], [address] , [place] - [facility] 4 10:48:17 Allergic rhinitis 32527940 Active 2023 MARY SCHREIBER PA-C [address] [facility] [place],[address], [place], [address] , [place] - [facility] 4 10:48:34 Perennial allergic rhinitis 377462613 Active 2023 [facility] R[facility] [address] [facility] [place] [address], [place], [address] , [facility] - [facility] 08:39:44 Problem Notes None recorded. Procedures Surgical History Date Name Laterality Status Provider Name and Address Organization Details Recorded Time 08/27/20 24 Tympanometry (63491) completed Melodie GANN [address] [facility],[place] [address], [place], [address], [facility] - [facility] 08/27/2024 10:00:48 08/06/20 24 Air & Speech Audio with Tymps (38189, 73809 & 52438) completed SIMBA ALEGRE MA, CCC-A [address] [facility],[place] [address], [place], [address], [facility] - [facility] 08/06/2024 14:03:16 03/18/20 24 Fiberoptic Laryngoscopy (Comprehensive) completed LAVONNE SIM MD [address] [facility],[place] [address], [place], [address], [facility] - [facility] 03/18/2024 11:32:05 03/18/20 24 Air only Audio (01320) completed MELODIE DELCID [address] [facility],[address], [address], [facility] - [facility] 03/18/2024 11:52:00 03/18/20 24 SRT & Speech Recognition (97782) completed MELODIE DELCID [address] [facility],[place] [address], [place], [address], [facility] - [facility] 03/18/2024 11:52:17 11/03/19 18 removal of sebaceous cyst completed Rizwan Castillo [place] - [facility] 03/18/2024 11:23:09 11/03/19 17 Breast augmentation w/implt completed Rizwan Castillo [place] - [facility] 03/18/2024 11:23:46 therapeutic cervical epidural injection completed LAVONNE SIM MD [address] [facility],[address], [address], [place] - [facility] 03/18/2024 11:24:17 Imaging Results None recorded. Procedure Notes None recorded. Medical Equipment None Reported. Allergies Allergen ID Allergen Name Allergen Category Reaction Reaction Severity Criticality Documentation Date Start Date Code Code System Note Provider Name and Address Organization Details Recorded Time 53692 penicilli n V potassium medicatio n other Not available Not available 03/16/2024 15802 5 RxNorm React ion: unkno wn, unspe cifie d;; Not Available [facility] 4 00:54:41 Medications Name Sig Start Date [...] 1 tablet 2016 active Medicati on ID: 650991 P rescribe d By Name: Colleen jensen [...] Updated DateTime 12/30/2024 167.64 cm 20.3 kg/m2 95242.64 g Renetta Moulton [place] - [facility] 12/30/2024 10:12:43 Social History Question Answer Notes LastModified by Organizat ion Details LastModified Time Tobacco Smoking Status Never Smoker Rizwan salas [place] - [facility] 03/18/2024 11:22:25 What Is Your Level Of Alcohol Consumption? None [email or web address] Information not available 03/18/2024 Do You Use Any Illicit Or Recreational Drugs? No [email or web address] Information not available 03/18/2024 Do You Or Have You Ever Used Any Other Forms Of Tobacco Or Nicotine? No [email or web address] Information not available 03/18/2024 Sex: Unknown Functional [...] SNOMED-CT Code Diagnosis ICD10 Code Diagnosis Note 23332 MP SRIVASTAVA MD [facility] [address] [address] 12/30/2024 10:02:27 12/30/2024 10:38:00 Allergic rhinitis 14403099 J30.89 Chronic pharyngitis 1400 04 J31.2 Pain of le ft temporomandibular joint 2385935462 0473693 M26.622 Tinnitus of left ear 601 2500499 106 H93.12 Health Concerns Section Related Observation LastModified by Organization Detai ls LastModified Time None Recorded Concern Status LastModified by Organization Details LastModified Time None Recorded Payers Encounter Date Sequence Insurance Name Policy Number Policy Toscano Covered Member ID Toscano Member ID Guarantor Name 12/30/2024 1 [facility] (MEDICAID REPLACEMENT - HMO) MARIBELL Dykes [id number] Alondra Dykes Notes Date Note Type Note [...] her allergy symptoms do not improve with qrrb-ato-jrntpfo Zyrtec and Flonase, which she has been taking daily for 7 months. MP SRIVASTAVA MD [address] [place] [address], [place], [address], [facility] - [facility] 12/31/2024 08:08:47 OBGyn Episode No OBEpisode recorded.
--- OUTSIDE RECORDS SUMMARY | 2025-01-13 16:15 | XMS_ITS | Encounter Summary ---
Author Organization [facility] Address [address] [place] [address] Care Team Providers Care Assembling Machine Operator Name Role Phone Ho Araya MD Primary Care Provider [phone] Encounter Details Date Type Department Care Team (Late Contact Info) Description 12/31/2024 Telephone Orthopedic Surgery [facility] [address] [address] Nena Zepeda Social History Tobacco [...] medical bills. Request was sent to the [place] Customer Service Department at [employer] <[email or web address]> A copy of this request has been scanned to the patient's chart for reference. documented in this encounter Plan of Treatment Upcoming Encounters Date Type Department Care Team (Late Contact Info) Description 01/24/2025 2:15 PM EDT Office Visit Orthopedic [facility] [address] [address] Diaz Galeana DPM 175 [facility] [address] [place] [address] 05/02/2025 10:30 AM EDT Office Visit [facility] Hematology Oncology [address] [place] [phone] Clotilde Lux DO [address] [place] [address] documented as of this encounter Visit Diagnoses Not on filedocumented in this encounter Care Teams Assembling Machine Operator Relationship Specialty Start Date End Date Ho Araya MD [address] [place] [address] PCP - General Internal Medicine 07/25/15 documented as of this encounter
--- OUTSIDE RECORDS SUMMARY | 2025-01-13 16:15 | XMS_ITS | Encounter Summary ---
Author Organization [facility] Address [address] [place] [address] Care Team Providers Care Process Engineering Intern Name Role Phone Ho Araya MD Primary Care Provider [phone] Reason for Visit * Reason Onset Date Comments Referral 10/13/2024 Encounter Details Date Type Department Care Team (Late st Contact Info) Description 10/13/2024 Telephone [facility] Hematology Oncology [address] [place] [phone] Clotilde Lux, DO [address] [place] [address] Referral Social History Tobacco Use Types Packs/Day [...] 10/13/2024 11:04 AM EST Referral sent to: [place] [facility] [employer] [address], [place] [address] f:[phone] documented in this encounter Plan of Treatment Upcoming Encounters Date Type Department Care Team (Late st Contact Info) Description 01/24/2025 2:15 PM EDT Office Visit Orthopedic Surgery [facility] [address] [phone] Diaz Galeana, DPM [address] [address] 05/02/2025 10:30 AM EDT Office Visit [facility] Hematology Oncology [address] [place] [address] Clotilde Lux, [address] [place] [address] documented as of this encounter Visit Diagnoses Not on filedocumented in this encounter Care Teams Process Engineering Intern Relationship Specialty Start Date End Date Ho Araya MD [address] [place] [address] PCP - General Internal Medicine 07/25/15 documented as of this encounter
--- OUTSIDE RECORDS SUMMARY | 2025-01-13 16:15 | XMS_ITS | Clinical Summary ---
Author Organization [facility] Address [address] [place] [address] Care Team Providers Care Stem Lead Former Name Role Phone Ho Araya MD Primary Care Provider [phone] Allergies Active Allergy Reactions Criticality Noted Date [...] age to complete this topic Care Teams Stem Lead Former Relationship Specialty Start Date End Date Ho Araya MD PCP - General Internal Medicine 05/19/24
--- OUTSIDE RECORDS SUMMARY | 2025-01-13 16:15 | XMS_ITS | Clinical Summary ---
Author Organization [facility] Address [address] [place] [address] Care Team Providers Care Molding Machine Operator Name Role Phone Wendi Toney MD Primary [...] age to complete this topic Care Teams Molding Machine Operator Relationship Specialty Start Date End Date Wendi Toney MD [address] [facility] [place] [address] PCP - General Internal Medicine 08/31/20
--- OUTSIDE RECORDS SUMMARY | 2025-01-13 16:15 | XMS_ITS | Data Portability ---
Author Organization [place] [facility], Allergy Address [address] [address] Care Team Providers Care Rn Quality Name Role Phone MCKENZIEMARLYN PANCHAL Primary Care Provider [phone] Assessment Encounter Date Assessment Date Assessment LastModified [...] mL injection , auto-inje ctor [address] [facility][id number], [phone] [place], [address], 12/30/2024 10:26:56 Patient TargetsNo targets recorded. Patient [...] >100. 00 Very High Not Available [facility] ([facility]) [address] [place], [address], 10/29/2024 23:16:49 10/28/20 24 10/29/2024 ALLER GENS, ZONE 1 S452-JgB D pteronyssinu s 0.16 kU/L class 0/I abnormal Not Available [facility] ([facility]) [address] [place], [address], 10/29/2024 23:16:49 10/28/20 24 10/29/2024 ALLER GENS, ZONE 1 Q912-NbA D farinae 0.12 kU/L class 0/I abnormal Not Available [facility] ([facility]) [address] [place], [address], 10/29/2024 23:16:49 10/28/20 24 10/29/2024 ALLER GENS, ZONE 1 G252-ZmO CAT dander 0.12 kU/L class 0/I abnormal Not Available [facility] ([facility]) [address] [place], [address], 10/29/2024 23:16:49 10/28/20 24 10/29/2024 ALLER GENS, ZONE 1 E663-YyH dog dander 5.14 kU/L class IV abnormal Not Available [facility] ([facility]) [address] [facility], [place], [address], 10/29/2024 23:16:49 10/28/20 24 10/29/2024 ALLER GENS, ZONE 1 c861-XyI bermuda grass <0.10 kU/L class 0 Not Available [facility] ([facility]) [address] [place], [address], 10/29/2024 23:16:49 10/28/20 24 10/29/2024 ALLER GENS, ZONE 1 e088-KoZ bluegrass, [place] <0.10 kU/L class 0 Not Available [facility] ([facility]) [address] [place], [address], 10/29/2024 23:16:49 10/28/20 24 10/29/2024 ALLER GENS, ZONE 1 j755-CeT bahia grass <0.10 kU/L class 0 Not Available [facility] ([facility]) [address] [place], [address], 10/29/2024 23:16:49 10/28/20 24 10/29/2024 ALLER GENS, ZONE 1 T606-FiO cockroach, cypriot 0.10 kU/L class 0/I abnormal Not Available [facility] ([facility]) [address] [facility] [place], [address], 10/29/2024 23:16:49 10/28/20 24 10/29/2024 ALLER GENS, ZONE 1 D379-GaT penicillium chrysogen <0.10 kU/L class 0 Not Available [facility] ([facility]) [address] [place], [address], 10/29/2024 23:16:49 10/28/20 24 10/29/2024 ALLER GENS, ZONE 1 U119-BxE cladosporium herbarum <0.10 kU/L class 0 Not Available [facility] ([facility]) [address] [facility], [address], 10/29/2024 23:16:49 10/28/20 24 10/29/2024 ALLER GENS, ZONE 1 T322-TuQ aspergillus fumigatus <0.10 kU/L class 0 Not Available [facility] ([facility]) [address] [place], [address], 10/29/2024 23:16:49 10/28/20 24 10/29/2024 ALLER GENS, ZONE 1 M687-EpU mucor racemosus <0.10 kU/L class 0 Not Available [facility] ([facility]) [address] [place], [address], 10/29/2024 23:16:49 10/28/20 24 10/29/2024 ALLER GENS, ZONE 1 G304-OdG alternaria alternata <0.10 kU/L class 0 Not Available [facility] ([facility]) [address] [place], [address], 10/29/2024 23:16:49 10/28/20 24 10/29/2024 ALLER GENS, ZONE 1 Y354-QzN stemphylium herbarum <0.10 kU/L class 0 Not Available [facility] ([facility]) [address] [facility], [place], [address], 10/29/2024 23:16:49 10/28/20 24 10/29/2024 ALLER GENS, ZONE 1 I743-YbF common silver birch 3.39 kU/L class III abnormal Not Available [facility] ([facility]) [address] [facility], [place], [address], 10/29/2024 23:16:49 10/28/20 24 10/29/2024 ALLER GENS, ZONE 1 U462-GqB oak, white 10.60 kU/L class IV abnormal Not Available [facility] ([facility]) [address] [facility], [place], [address], 10/29/2024 23:16:49 10/28/20 24 10/29/2024 ALLER GENS, ZONE 1 Z461-AfL elm, cypriot <0.10 kU/L class 0 Not Available [facility] ([facility]) [address] [facility], [place], [address], 10/29/2024 23:16:49 10/28/20 24 10/29/2024 ALLER GENS, ZONE 1 S141-YnA samira, white <0.10 kU/L class 0 Not Available [facility] ([facility]) [address] [facility], [place], [address], 10/29/2024 23:16:49 10/28/20 24 10/29/2024 ALLER GENS, ZONE 1 V994-BaE maple/box elder 0.23 kU/L class 0/I abnormal Not Available [facility] ([facility]) [address] [facility], [place], [address], 10/29/2024 23:16:49 10/28/20 24 10/29/2024 ALLER GENS, ZONE 1 Q266-QmF hazelnut tree 1.25 kU/L class II abnormal Not Available [facility] ([facility]) [address] [facility], [place], [address], 10/29/2024 23:16:49 10/28/20 24 10/29/2024 ALLER GENS, ZONE 1 Z721-SwF hickory, white 0.13 kU/L class 0/I abnormal Not Available [facility] ([facility]) [address], [place], [address], 10/29/2024 23:16:49 10/28/20 24 10/29/2024 ALLER GENS, ZONE 1 O326-FtD white mulberry <0.10 kU/L class 0 Not Available [facility] ([facility]) [address] [facility], [place], [address], 10/29/2024 23:16:49 10/28/20 24 10/29/2024 ALLER GENS, ZONE 1 A782-ClL cedar, mountain <0.10 kU/L class 0 Not Available [facility] ([facility]) [address], [place], [address], 10/29/2024 23:16:49 10/28/20 24 10/29/2024 ALLER GENS, ZONE 1 H938-KqF ragweed, short <0.10 kU/L class 0 Not Available [facility] ([facility]) [address] [facility], [place], [address], 10/29/2024 23:16:49 10/28/20 24 10/29/2024 ALLER GENS, ZONE 1 L206-MpS mugwort <0.10 kU/L class 0 Not Available [facility] ([facility]) [address], [place], [address], 10/29/2024 23:16:49 10/28/20 24 10/29/2024 ALLER GENS, ZONE 1 W154-KwE plantain, faroese <0.10 kU/L class 0 Not Available [facility] ([facility] [facility]) [address], [place], [address], 10/29/2024 23:16:49 10/28/20 24 10/29/2024 ALLER GENS, ZONE 1 O371-AyR pigweed, common <0.10 kU/L class 0 Not Available [facility] ([facility]) [address] [place], [address], 10/29/2024 23:16:49 10/28/20 24 10/29/2024 ALLER GENS, ZONE 1 U919-RnI sheep sorrel <0.10 kU/L class 0 Not Available [facility] ([facility]) [address] [place], [address], 10/29/2024 23:16:49 10/28/20 24 10/29/2024 ALLER GENS, ZONE 1 J061-IxE nettle <0.10 kU/L class 0 Not Available [facility] ([facility]) [address] [place], [address], 10/29/2024 23:16:49 10/28/20 24 10/29/2024 FOOD ALLER GY PROFI LE O138-NjU egg white 0.21 kU/L class 0/I abnormal Not Available [facility] ([facility]) [address] [place], [address], 10/29/2024 23:16:50 10/28/20 24 10/29/2024 FOOD ALLER GY PROFI LE E455-RtQ peanut <0.10 kU/L class 0 Not Available [facility] ([facility]) [address] [place], [address], 10/29/2024 23:16:50 10/28/20 24 10/29/2024 FOOD ALLER GY PROFI LE G134-AnK soybean <0.10 kU/L class 0 Not Available [facility] ([facility]) [address] [place], [address], 10/29/2024 23:16:50 10/28/20 24 10/29/2024 FOOD ALLER GY PROFI LE I479-SqI milk 0.66 kU/L class II abnormal Not Available [facility] ([facility]) [address] [place], [address], 10/29/2024 23:16:50 10/28/20 24 10/29/2024 FOOD ALLER GY PROFI LE R385-FcL clam <0.10 kU/L class 0 Not Available [facility] ([facility]) [address] [place], [address], 10/29/2024 23:16:50 10/28/20 24 10/29/2024 FOOD ALLER GY PROFI LE I761-RvG shrimp 0.10 kU/L class 0/I abnormal Not Available [facility] ([facility]) [address] [place], [address], 10/29/2024 23:16:50 10/28/20 24 10/29/2024 FOOD ALLER GY PROFI LE K021-VoK walnut <0.10 kU/L class 0 Not Available [facility] ([facility]) [address] [place], [address], 10/29/2024 23:16:50 10/28/20 24 10/29/2024 FOOD ALLER GY PROFI LE O502-GgQ codfish <0.10 kU/L class 0 Not Available [facility] ([facility]) [address] [place], [address], 10/29/2024 23:16:50 10/28/20 24 10/29/2024 FOOD ALLER GY PROFI LE T983-XtB scallop <0.10 kU/L class 0 Not Available [facility] ([facility]) [address] [place], [address], 10/29/2024 23:16:50 10/28/20 24 10/29/2024 FOOD ALLER GY PROFI LE B945-XxS wheat <0.10 kU/L class 0 Not Available [facility] ([facility]) [address] [facility], [place], [address], 10/29/2024 23:16:50 10/28/20 24 10/29/2024 FOOD ALLER GY PROFI LE J886-NxR corn <0.10 kU/L class 0 Not Available [facility] ([facility]) [address] [facility], [place], [address], 10/29/2024 23:16:50 10/28/20 24 10/29/2024 FOOD ALLER GY PROFI LE F757-PuU sesame seed <0.10 kU/L class 0 Not Available [facility] ([facility]) [address] [facility], [place], [address], 10/29/2024 23:16:50 10/28/20 24 10/29/2024 IMMUN OGLOB ULIN E, TOTAL immunoglobul in E, total 81 IU/mL 6-495 Not Available [facility] ([facility]) [address] [facility], [place], [address], 10/29/2024 23:16:50 06/23/20 24 03/18/2024 imagi ng/di agnos tic resul t No observ ation record ed. [email or web address] Not Available 21:06:53 08/06/20 24 audio gram No observ ation record ed. [email or web address] Not Available 2023 15:00:15 08/27/20 24 audio gram No observ ation record ed. Not Available 08/04 11:42:10 Result Notes None recorded. Problems Name Problem SNOMED Code Status Onset Date Resolution Date Notes Provider Name and Address Organization Details Recorded Time Chronic pharyngit is 726716 Active 2016 Chronic sore throat; Note: Date Diagnosed : 11/08/2016 2:47 PM (J31.2) Not Available [facility] 02:30:50 Gastroeso phageal reflux disease without esophagit is 627631941 Active 2016 Gastro-es ophageal reflux disease without esophagit is; Note: Date Diagnosed : 11/08/2016 2:47 PM (K21.9) Not Available [facility] 4 02:30:44 Mass of neck 250265491 Active 2014 Localized swelling, mass and lump, neck; Note: Date Diagnosed : 5 5:39 AM (R22.1) Not Available [facility] 4 02:30:45 Neck swelling 542691976 Active 2014 Localized swelling, mass and lump, neck; Note: Date Diagnosed : 5 5:39 AM (R22.1) Not Available [facility] 4 02:30:45 Lesion of oral mucosa 94944422864 49793 Active 2016 Other lesions of oral mucosa; Note: Date Diagnosed : 11/08/2016 2:53 PM (K13.79) Not Available [facility] 4 02:31:01 Tinnitus of left ear 52403126473 06 Active 2023 LAVONNE RODRIGUEZ MD [address] [facility], [place], [address] , [place] - [facility] 4 11:32:24 Migraine 42762757 Active 2023 LAVONNE RODRIGUEZ MD [address] [facility], [place], [address] , [place] - [facility] 4 11:32:34 Pharyngea l dysphagia 63175662971 105 Active 2023 LAVONNE RODRIGUEZ MD [address] [facility], [place], [address] , [place] - [facility] 4 11:32:47 Abnormal auditory perceptio n 74570721 Active 2023 LAVONNE RODRIGUEZ MD [address] [facility] [address], [place], [address] , [place] - [facility] 4 11:33:02 Abnormal auditory perceptio n 05591585 Active 2023 LION HEREDIA MD [address], [place], [address] , [facility] - [facility] 4 14:26:32 Neck pain 47960798 Active 2023 LION HEREDIA MD [address], [place], [address] , [facility] - [facility] 4 14:26:40 Pain of left temporoma ndibular joint 46252865275 560383 Active 2023 LION HEREDIA MD [address] [facility],[place] [address], [place], [address] , [place] - [facility] 4 14:26:28 Posterior rhinorrhe a 11162451 Active 2023 MARY SCHREIBER PA-C [address] [facility] [place] [address], [place], [address] , [facility] - [facility] 4 10:48:17 Allergic rhinitis 55595684 Active 2023 MARY SCHREIBER PA-C [address] [facility] [place] [address], [place], [address] , [facility] - [facility] 4 10:48:34 Perennial allergic rhinitis 783546040 Active 2023 [facility] [address] [facility] [place],[place] [address], [place], [address] , [facility] - [facility] 4 08:39:44 Problem Notes None recorded. Procedures Surgical History Date Name Laterality Status Provider Name and Address Organization Details Recorded Time 08/27/20 24 Tympanometry (21443) completed Melodie GANN [address] [facility] [place] [address], [place], [address], [facility] - [facility] 08/27/2024 10:00:48 08/06/20 24 Air & Speech Audio with Tymps (99835, 44283 & 29987) completed SIMBA ALEGRE [place], CCC-A [address] [facility], [place], [address], [place] - [facility] 08/06/2024 14:03:16 03/18/20 24 Fiberoptic Laryngoscopy (Comprehensive) completed LAVONNE SIM MD [address] [facility],[place] [address], [place], [address], [place] - [facility] 03/18/2024 11:32:05 03/18/20 24 Air only Audio (23606) completed MORA WEAVER [facility] [address] [facility],[address], [address], [place] - [facility] 03/18/2024 11:52:00 03/18/20 24 SRT & Speech Recognition (06904) completed MELODIE DELCID [address] [facility],[place] [address], [place], [address], [place] - [facility] 03/18/2024 11:52:17 11/03/19 18 removal of sebaceous cyst completed Rizwan Castillo [place] - [facility] 03/18/2024 11:23:09 11/03/19 17 Breast augmentation w/implt completed Rizwan Castillo [place] [facility] 03/18/2024 11:23:46 therapeutic cervical epidural injection completed LAVONNE SIM MD [address] [place] [address],[place] [address], [place], [address], [place] - [facility] 03/18/2024 11:24:17 Imaging Results Imaging Date Name Status LastModified by Organiz ation Details LastModified Time 03/18/2024 imaging/diagno stic result completed [email or web address] Information not available 06/23/2024 21:06:53 08/06/2024 audiogram completed [email or web address] Information no t available 08/06/2024 15:00:15 08/27/2024 audiogram completed [email or web address] Information n ot available 08/27/2024 11:42:10 Procedure Notes None recorded. Medical Equipment None Reported. Allergies Allergen ID Allergen Name Allergen Category Reaction Reaction Severity Criticality Documentation Date Start Date Code Code System Note Provider Name and Address Organization Details Recorded Time 37204 penicilli n V potassium medicatio n other Not available Not available 03/16/2024 5 RxNorm React ion: unkno wn, unspe cifie d;; Not Available [facility] 00:54:41 Medications Name Sig Start Date Stop [...] 1 tablet 2016 active Medicati on ID: [id number] P rescribe d By Name: Colleen jensen [...] Updated DateTime 05/07/2024 167.64 cm 20.7 kg/m2 87105.82 g Kike Casanova [place] [facility] 05/07/2024 14:00:00 Date Recorded Body height Body mass index (BMI) Body weight Provider Name and Address Organization Details Last Updated DateTime 08/06/2024 167.64 cm 19.4 kg/m2 88837.08 g Rizwan Castillo [place] [facility] 08/06/2024 14:18:43 Date Recorded Body height Body mass index (BMI) Body weight Provider Name and Address Organization Details Last Updated DateTime 08/27/2024 167.64 cm 19.4 kg/m2 89436.08 g Kike Casanova [facility] 08/27/2024 09:35:59 Date Recorded Body height Body mass index (BMI) Body weight Provider Name and Address Organization Details Last Updated DateTime 03/18/2024 167.64 cm 20.7 kg/m2 89646.82 g Rizwan Castillo [place] [facility] 03/18/2024 11:21:57 Date Recorded Body height Body mass index (BMI) Body weight Provider Name and Address Organization Details Last Updated DateTime 12/30/2024 167.64 cm 20.3 kg/m2 08903.64 g Renetta Saige [facility] 12/30/2024 10:12:43 Social History Question Answer Notes LastModified by Organizat ion Details LastModified Time Tobacco Smoking Status Never Smoker Rizwan salas [facility] 03/18/2024 11:22:25 What Is Your Level Of Alcohol Consumption? None [email or web address] Information not available 03/18/2024 Do You Use Any Illicit Or Recreational Drugs? No [email or web address] Information not available 03/18/2024 Do You Or [...] Note 512 LAVONNE RODRIGUEZ MD [facility] [address] [address] 03/18/2024 11:13:52 03/18/2024 12:02:33 Tinnitus of left ear 8382563654 106 H93.12 Hearing within normal limits AU.Type A tympanogra ms AU. Migraine 65316697 G43.90 9 Pharyngeal dysphagia 692 7244477 9105 R13.13 She notes a sensation of randomly having a cough with saliva or fluids. Transnasal fiberoptic laryngosco py shows normal vocal fold mobility and no masses Abnormal a uditory perception 19379328 H93.292 Patient presents with sensation of fullness, [...] about fluid in the ear Neck pain 86935705 M54.2 6669 LION EHREDIA MD [facility] [address] [address] 05/07/2024 13:53:44 05/07/2024 14:43:55 Pain of left temporomandibular joint 9116782431 2360568 M26.622 Abnormal a uditory perception 23435866 H93.292 Neck pain 73984662 M54.2 14022 LION HEREDIA MD [facility] [address] [address] 08/06/2024 13:30:04 08/06/2024 17:05:24 Abnormal auditory perception 66540318 H93.299 Audiologic al evaluation results: Right ear: [...] Cou ld not maintain a hermetic seal}} 64548 LAVONNE RODRIGUEZ MD [facility] [address] [address] 08/27/2024 09:33:34 08/27/2024 10:32:43 Abnormal auditory perception 94713301 H93.299 Tympanomet ry: Right Ear:{{Type A* Type [...] maintain a hermetic seal}} Posterior rhinorrhea 758 40690 R09.82 Allergic rhinitis 277973 04 J30.9 77361 MP SRIVASTAVA MD [facility] [address] [address] 12/30/2024 10:02:27 12/30/2024 10:38:00 Allergic rhinitis 68277059 J30.89 Chronic pharyngitis 1400 04 J31.2 Pain of le ft temporomandibular joint 6253988611 8551854 M26.622 Tinnitus of left ear 976 1258385 106 H93.12 Health Concerns Section Related Observation LastModified by Organization Detai ls LastModified Time None Recorded Concern Status LastModified by Organization Details LastModified Time None Recorded Advance Directives Directive None Recorded Payers Encounter Date Sequence Insurance Name Policy Number Policy Toscano Covered Member ID Toscano Member ID Guarantor Name 03/18/2024 1 [facility] (MEDICAID REPLACEMENT - HMO) [place] Lismarie Dykes [id number] Lismarie Dykes 05/07/2024 1 [facility] (MEDICAID REPLACEMENT - HMO) [place] Lismarie Dykes [id number] Lismarie Dykes 08/06/2024 1 [facility] (MEDICAID REPLACEMENT - HMO) [place] Lismarie Dykes [id number] Lismarie Dykes 08/27/2024 1 [facility] (MEDICAID REPLACEMENT - HMO) [place] Lismarie Dykes [id number] Lismarie Dykes 12/30/2024 1 [facility] (MEDICAID REPLACEMENT - HMO) [place] Lismarie Dykes [id number] Lismarie Dykes Notes Date Note Type Note [...] causing her to cough LAVONNE SIM MD [address] [place] [address],[place] [address], [place], [address], [facility] - [facility] 03/18/2024 12:22:03 05/07/2024 text/html Patient on [...] on her saliva LION HEREDIA MD [address] [facility],[address], [address], [facility] - [facility] 05/07/2024 14:27:55 08/06/2024 text/html 33-year-old fema [...] occasional room-spinning dizziness. LION HEREDIA MD 100 [facility],[place] [address], [place], [address], [facility] - [facility] 08/06/2024 17:16:04 08/27/2024 text/html 33-year-old fema [...] taking Zyrtec daily. LAVONNE SIM MD 100 [facility],[address], [address], [facility] - [facility] 08/30/2024 12:02:43 12/30/2024 text/html 34-year-old fema le with chronic regional pain syndrome and left TMJ presents for allergy test results. She reports her left sided ear pain and pressure are stable. Allergy testing demonstrated moderate sensitivity to dog dander, birch tree, and oak tree. Patient reports her allergy symptoms do not improve with [id number] Zyrtec and Flonase, which she has been taking daily for 7 months. MP SRIVASTAVA MD [address] [facility],[place] [address], [place], [address], [facility] 12/31/2024 08:08:47 OBGyn Episode No OBEpisode recorded.
== END 2025-01-13 13:43 | disposition home or self-care (01) ==
LOC: HO.HCS 12:55
PROVIDERS: PCP Internal Medicine; Visit Provider Internal Medicine Cardiovascular Disease
DX: R42 Dizziness and giddiness (principal)
CPT/HCPCS: 93010; 99204; G2211

== ENCOUNTER 2025-01-13 12:55 | Outpatient (REF) | payer OTHER, SELFPAY ==
--- OUTSIDE RECORDS SUMMARY | 2025-01-13 17:31 | XMS_ITS | Clinical Summary ---
Author Organization [facility] Address [address] [place] [address] Care Team Providers Care Cell Repairer Name Role Phone Wendi Toney MD Primary [...] age to complete this topic Care Teams Cell Repairer Relationship Specialty Start Date End Date Wendi Toney MD [address] [facility] [place] [address] PCP - General Internal Medicine 08/31/20
--- OUTSIDE RECORDS SUMMARY | 2025-01-13 17:31 | XMS_ITS | Encounter Summary ---
Author Organization [facility] Address [address] [place] [address] Care Team Providers Care Pin Cleaner Name Role Phone Ho Araya MD Primary Care Provider [phone] Reason for Visit * Reason Onset Date Comments Letter for School/Work 11/19/2024 Encounter Details Date Type Department Care Team (Late st Contact Info) Description 11/19/2024 [facility] [address] [place] [phone] Ho Araya MD [address] [place] [address] Letter for School/Work Social History Tobacco Use [...] - 11/22/2024 12:33 PM EST Badge # [id number] * Chayito Max MA - 11/19/2024 1:41 [...] PM EDT Office Visit Orthopedic Surgery - [place] [address] [phone] Diaz Galeana DPM [address] [address] 05/02/2025 10:30 AM EDT Office Visit [facility] Hematology Oncology [address] [place] [phone] Clotilde Lux, DO [address] [place] [address] documented as of this encounter Visit Diagnoses Not on filedocumented in this encounter Care Teams Pin Cleaner Relationship Specialty Start Date End Date Ho Araya MD [address] [place] [address] PCP - General Internal Medicine 07/25/15 documented as of this encounter
--- OUTSIDE RECORDS SUMMARY | 2025-01-13 17:31 | XMS_ITS | Clinical Summary ---
Author Organization [facility] Address [address] [place] [address] Care Team Providers Care System Administrator Name Role Phone Ho Araya MD Primary Care Provider [phone] Allergies Active Allergy Reactions Criticality Noted Date [...] age to complete this topic Care Teams System Administrator Relationship Specialty Start Date End Date Ho Araya MD PCP - General Internal Medicine 05/19/24
--- OUTSIDE RECORDS SUMMARY | 2025-01-13 17:31 | XMS_ITS | Encounter Summary ---
Author Organization [facility] Address [address] [place] [address] Care Team Providers Care Systems Integration Analyst Name Role Phone Ho Araya MD Primary Care Provider [phone] Encounter Details Date Type Department Care Team (Late Contact Info) Description 12/31/2024 Telephone Orthopedic Surgery [facility] [address] [address] Nena Zepeda Social History Tobacco [...] medical bills. Request was sent to the [place] Customer Service Department at [employer] [email or web address] A copy of this request has been scanned to the patient's chart for reference. documented in this encounter Plan of Treatment Upcoming Encounters Date Type Department Care Team (Late Contact Info) Description 01/24/2025 2:15 PM EDT Office Visit Orthopedic [facility] [address] [address] Diaz Galeana DPM 175 [facility] 250 [place] [address] 05/02/2025 10:30 AM EDT Office Visit [facility] Hematology Oncology [address] [place] [phone] Clotilde Lux DO [address] [place] [address] documented as of this encounter Visit Diagnoses Not on filedocumented in this encounter Care Teams Systems Integration Analyst Relationship Specialty Start Date End Date Ho Araya MD [address] [place] [address] PCP - General Internal Medicine 07/25/15 documented as of this encounter
--- OUTSIDE RECORDS SUMMARY | 2025-01-13 17:31 | XMS_ITS | Clinical Summary ---
Author Organization [facility] Address [address] [place] [address] Phone Care Team Providers Care Support Architect Name Role Phone Ho Araya MD Primary Care Provider [phone] Allergies Active Allergy Reactions Criticality Noted Date [...] bottle twice daily for weight loss / [place] Flavored 60 each 11 09/29/20 24 Active [...] 11/17/2020 Migraine 07/03/2018 Overview (08/12/2024): Seen at [facility], initial visit 09/26/2020. Nerve blocks and trigger point injections done 10/04/2020 and 01/04/2021. Acne vulgaris 08/21/2016 Asthma 01/09/2012 Encounters Date Type Department Care Team Description 12/31/2024 Telephone Orthopedic Surgery - [place] 250 175 [facility] 250 [place] [phone] Nena Zepeda 11/19/2024 Telephone Internal Medicine - [facility] [address] [place] [phone] Ho Araya MD PT1 (Piero Encarnacion @ [facility]-Rheumatology ) 11/19/2024 Telephone Internal Medicine - [facility] [place] [phone] Ho Araya MD Letter for School/Work 11/15/2024 12:57 PM EST - 11/15/2024 11:59 PM EST Hospital Encounter [facility] Ultrasound [address] [place] [address] Cervicalgia Discharge Disposition: Home or Self Care 11/09/2024 [facility] [address] [place], [place] [address] [place] [address] Ho Araya MD faxed refill 11/08/2024 Telephone Gastroenterology - [place] 175 [place] 175 [facility] 200 [place] [phone] Christos Blackwell PA 10/29/2024 11:11 AM EST - 10/29/2024 11:59 PM EST Hospital Encounter [facility] CT Scan [address] [place] [address] Decreased appetite; Epigastric pain; Nausea; [...] CYST REMOVAL OVARIAN CYST REMOVAL N/A PROCEDURE: NC OVARIAN CYSTECTOMY UNI/BI BREAST SURGERY PROCEDURE: NC BREAST AUGMENTATION WITH IMPLANT Medical History Medical History Date Comments Asthma DX:Asthma Migraines 07/03/2018 DX:Migraines; CO MMENT: Seen at [facility], initial visit 09/26/2020. Nerve [...] PM EDT Office Visit Orthopedic Surgery - [place] [address] [place] [address] [phone] Diaz Galeana, DPM [address] [place] [address] [address] 05/02/2025 10:30 AM EDT Office Visit [facility] Hematology Oncology [address] [place] [phone] Clotilde Lux, [address] [place] [address] Health Maintenance Due Date Last Done Comments [...] Signed Date: 11/23/2024 08:29 ET Workstation ID: [id number] Transcribed By: Self Edit Transcribed Date: 11/23/2024 [...] Signed Date: 11/23/2024 08:29 ET Workstation ID: [id number] Transcribed By: Self Edit Transcribed Date: 11/23/2024 [...] this age. 3. IUD well-positioned. Telerad PA ([id number]) -------- FINAL REPORT -------- Dictated By: Patrica Ramirez Dictated Date: 11/01/2024 16:12 ET Assigned Physician: Patrica Ramirez Reviewed and Electronically Signed By: Patrica Ramirez Signed Date: 11/01/2024 16:20 ET Workstation ID: [id number] Transcribed By: Self Edit Transcribed Date: 11/01/2024 16:12 ET Narrative 11/01/2024 4:20 PM EST History: Epigastric pain. Early satiety. Comparison: 01/22/24 Technique: Helical volumetric imaging of the abdomen and pelvis was performed following oral contrast and during the uneventful intravenous administration of 90 cc Isovue-370. DLP: 379.35 mGy/cm Spot Runner VCT Iterative reconstruction technique Findings: Bilateral augmentation [...] of 90 cc Isovue-370. DLP: 379.35 mGy/cm EpiVaxT Iterative reconstruction technique Findings: Bilateral augmentation mammoplasty [...] ofthis age. 3. IUD well-positioned. Telerad PA ([id number]) -------- FINAL REPORT -------- Dictated By: Patrica Ramirez Dictated Date: 11/01/2024 16:12 ET Assigned Physician: Patrica Ramirez Reviewed and Electronically Signed By: Patrica Ramirez Signed Date: 11/01/2024 16:20 ET Workstation ID: [id number] Transcribed By: Self Edit Transcribed Date: 11/01/2024 16:12 ET Christos SHIRLEY IMG CT PROCEDURES Final Result * Depression Screening (05/12/2024) Depression Screening abstracted Historical Provider HEALTH MAINTENANCE Final Result * Lipid panel (05/12/2024) Pathologist [facility] LDL/HDL Ratio 3 0 - 4 Triglycerides 56 0 - 150 mg/dL Cholesterol 173 0 - 200 mg/dL HDL 68 >=40 mg/dL LDL Cholesterol 94 0 - 100 mg/dL Blood Venous blood specimen / Unknown Result [facility] Historical Provider LAB BLOOD ORDERABLES Katy l Result * Hepatitis C Screening (11/17/2020) Pathologist [facility] Hepatitis C Screening abstracted Result [facility] Historical Provider HEALTH MAINTENANCE Final Result from Last 3 Months or Most Recently Relevant to Health Maintenance Insurance [facility] [place] [address] Care Teams Support Architect Relationship Specialty Start Date End Date Ho Araya MD [address] [place] [address] PCP - General Internal Medicine 07/25/15
--- OUTSIDE RECORDS SUMMARY | 2025-01-13 17:31 | XMS_ITS | Encounter Summary ---
Author Organization [facility] Address [address] [place] [address] Care Team Providers Care Blooming Mill Supervisor Name Role Phone Ho Araya MD Primary Care Provider [phone] Reason for Visit * Reason Onset Date Comments Referral 10/13/2024 Encounter Details Date Type Department Care Team (Late st Contact Info) Description 10/13/2024 Telephone [facility] Hematology Oncology [address] [place] [phone] Clotilde Lux, DO [address] [place] [address] Referral Social History Tobacco Use Types Packs/Day [...] 10/13/2024 11:04 AM EST Referral sent to: [place] [facility] [address], [place] [address] f:[phone] documented in this encounter Plan of Treatment Upcoming Encounters Date Type Department Care Team (Late st Contact Info) Description 01/24/2025 2:15 PM EDT Office Visit Orthopedic Surgery [facility] [address] [phone] Diaz Galeana, DPM [address] [address] 05/02/2025 10:30 AM EDT Office Visit [facility] Hematology Oncology [address] [place] [phone] Clotilde Lux, [address] [place] [address] documented as of this encounter Visit Diagnoses Not on filedocumented in this encounter Care Teams Blooming Mill Supervisor Relationship Specialty Start Date End Date Ho Araya MD [address] [place] [address] PCP - General Internal Medicine 07/25/15 documented as of this encounter
--- OUTSIDE RECORDS SUMMARY | 2025-01-13 17:31 | XMS_ITS | Encounter Summary ---
Author Organization [facility] Address [address] [place] [address] Care Team Providers Care Aluminum Siding Applicator Name Role Phone Ho Araya MD Primary Care Provider [phone] Encounter Details Date Type Department Care Team (Late Contact Info) Description 09/24/2024 Lab Requisition [facility] - Main Lab 299 [facility] [place] [phone] Sergio Gross PA [address] [facility] 120 [place] [phone] Other microscopic hematuria Social History Tobacco Use [...] PM EDT Office Visit Orthopedic Surgery - [place] [address] [phone] Diaz Galeana DPM [address] [address] 05/02/2025 10:30 AM EDT Office Visit [facility] Hematology Oncology [address] [place] [phone] MaciClotilde huber, DO [address] [place] [address] documented as of this encounter Procedures Procedure [...] clinical and pathological findings. 10/12/2024 9:06 AM [facility] Addendum electronically signed by Gaetano Fernando MD on 10/12/2024 at 9:06 AM Final Diagnosis Urine, Voided: Negative for high grade urothelial carcinoma. Note: UroVysion testing to follow. 10/12/2024 9:06 AM [facility] Clinical Information [id number], Urine cyto/urine FISH. 10/12/2024 9:06 AM [facility] Gross Description A. Urine, Voided, : [id number] recd 1 TP cyto 1 TP fish. 10/12/2024 9:06 AM [facility] Disclaimer Unless otherwise specified, all tissue is 10% NB formalin fixed and paraffin embedded. 10/12/2024 9:06 AM [facility] Tissue Urine specimen from urethra / Unknown 09/21/2024 09/24/2024 1:47 PM EST us Sergio SHIRLEY LAB PATHOLOGY ORDERABLES Edite d Result - Final [facility] [address] [place] [address], documented in this encounter Visit Diagnoses Diagnosis Other microscopic hematuria documented in this encounter Care Teams Aluminum Siding Applicator Relationship Specialty Start Date End Date Ho Araya MD [address] [place] [address] PCP - General Internal Medicine 07/25/15 documented as of this encounter
[2025-01-16 19:28] LABS: Zinc 74 mcg/dL (60-130)
== END 2025-01-13 12:56 | disposition home or self-care (01) ==
LOC: HO.LAB 12:55
PROVIDERS: Absent Provider Nurse Practitioner Family; PCP Internal Medicine; Visit Provider Internal Medicine Cardiovascular Disease
DX: D64.9 Anemia, unspecified (principal); R63.4 Abnormal weight loss; E55.9 Vitamin D deficiency, unspecified; R68.2 Dry mouth, unspecified; H04.123 Dry eye syndrome of bilateral lacrimal glands; D72.819 Decreased white blood cell count, unspecified; R20.2 Paresthesia of skin; R25.1 Tremor, unspecified; R42 Dizziness and giddiness
CPT/HCPCS: 36415; 84630; 93005; 99202

== ENCOUNTER → 2025-02-04 13:12 | Outpatient (REF) | payer OTHER, SELFPAY ==
--- NOTE | 2025-02-04 13:15 | CA_ITS ---
Transthoracic Echocardiogram Patient (Last, First, Middle): Alondra Dykes, Gender: Female Date of : 1990 Age: 34 Procedure Date: 02/04/2025 Procedure Type: Transthoracic Echocardiogram Location: OP Height: 167. cm Weight: 53.53 kg BSA: 1.59 m2 Heart Rate: bpm BP: 100 / 55 mmHg Cable Splicing Technician: KATLYN Referring MD: Woodrow Oshea MD Symptoms: R42 - Dizziness and giddiness Study Quality: Adequate/breast implants ECG Rhythm: Sinus Conclusions: - The left ventricular systolic function is normal. The calculated ejection fraction is 61% by biplane method. - No obvious valvular pathology seen on this study. Findings Left Ventricle Normal left ventricular cavity size. There is normal left ventricular wall thickness. The left ventricular systolic function is normal. The calculated ejection fraction is 61% by biplane method. There is no evidence of regional wall motion abnormalities. Diastolic function is normal for age. Right Ventricle Normal right ventricular cavity size. There is low normal right ventricular systolic function. Atria Both atria are normal in size. Aortic Valve The aortic valve was not well visualized. There is no aortic valve stenosis. There is no aortic valve regurgitation. Mitral Valve The mitral valve appears normal. There is no mitral valve regurgitation. There is no mitral valve stenosis. Pulmonic Valve The pulmonic valve is likely normal. Tricuspid Valve Normal tricuspid valve structure. There is trace tricuspid valve regurgitation. There is no evidence of pulmonary hypertension. Great Vessels The asc aorta and aortic arch are normal in size. Venous The inferior vena cava is normal in size and collapses greater than 50% with inspiration. Pericardium/Pleural There is no evidence of pericardial effusion. Prior Study Comparison No prior study available for comparison. Recommendations, Care & Conclusions No obvious valvular pathology seen on this study. Measurements 2D Linear Measurements IVSd: 0.64 0.6-0.9/0.6-1.0 cm LVIDd: 4.68 3.9-5.3/4.2-5.9 cm LVIDd Index: 2.94 2.4-3.2/2.2-3.1 cm/m2 LVIDs: 2.87 2.0-3.6 cm LVPWd: 0.75 0.7-1.1 cm LA Diam: 2.70 2.7-3.8/3.0-4.0 cm LAIDs Index: 1.70 1.5-2.3 cm/m2 LV Mass: 125.99 67-162/88-224 g LV Mass Index: 79.24 43-95/49-115 g/m2 LVOT Diam: 1.80 3.0+(-)1.3 cm 2D Systolic Function EF 4C: 63.40 >55% EF 2C: 58.40 >55% EF BiP: 60.50 >55% Mitral Valve MV Pk E: 0.68 MV PK A: 0.48 MV Decel Time: 197.00 E/A: 1.40 E'Lateral: 13.40 E'Medial: 11.40 E/E' Med: 5.90 E/E' Lat: 5.10 PHT: 58.00 MVA PHT: 3.79 Decel [place]: 3.44 Aortic Valve AoV Pk Tru: 1.22 AoV Mn Tru: 0.87 AoV VTI: 0.22 AoV Pk Grad: 6.00 Aov Mn Grad: 3.00 SHERRELL Cont.VTI: 2.16 LVOT LVOT Pk Tru: 1.06 LVOT Mn Tru: 0.73 LVOT VTI: 0.19 LVOT Pk Grad: 4.00 LVOT Mn Grad: 2.00 LVOT Diam: 1.80 LVOT Area: 2.54 Diastolic Function MV Pk E: 0.68 MV Pk A: 0.48 E/A: 1.40 E'Medial: 11.40 E/E' Med: 5.90 E' Laterial: 13.40 E/E' Lat: 5.10 Right Ventricle TAPSE (mm): 20.30 TVS' Tru: 9.79 Tricuspid Valve TR Pk Tru: 1.73 TR Pk Grad: 12.00 RA Press: 3.00 RVSP: 15.00 Great Vessels Aorta Sinus of Valsalva: 2.70 2.0-3.5 cm Ao Asc: 2.30 2.1-3.4 cm Ao Arch: 2.40 Pulmonary Valve PV Pk Tur: 0.86 Peak PV Grad: 3.00 Updated in Other Vendor System with Status of Final Sudhir Taylor MD electronically signed on 02/05/2025 12:56:00 PM with status of Final
--- OUTSIDE RECORDS SUMMARY | 2025-02-04 15:05 | XMS_ITS | Clinical Summary ---
Author Organization [facility] Address [address] [place] [address] Phone Care Team Providers Care Cfd Engineer Name Role Phone Ho Araya MD Primary Care Provider [phone] Allergies Active Allergy Reactions Criticality Noted Date [...] pharmacy as: Ensure Active Oral Liquid Active pantoprazole (PROTONIX) 40 mg EC tablet Take 1 Tablet by mouth daily. Take in am on empty stomach, wait 30 mins and then eat to activate the medication Active diclofenac (VOLTAREN) 1 % topical gel Apply 4 g topically 2 times daily as needed (Thigh pain). Active dicyclomine (BENTYL) 10 mg capsule Active promethazine (PHENERGAN) 12.5 mg tablet Take [...] NEEDED FOR FEVER/MILD PAIN SCALE 1 3 Active polyethylene glycol (PEG) 17 gram/dose oral [...] medication- before breakfast and supper 60 each 024 2024 Active sucralfate (CARAFATE) 100 mg/mL [...] bottle twice daily for weight loss / [place] Flavored 60 each Active lidocaine (XYLOCAINE) 5 % ointment Apply topically 2 (two) times a day. 35.44 g Active cetirizine (ZyrTEC) 10 mg tablet TAKE 1 TABLET BY MOUTH EVERY DAY 90 tablet 1 Active Linzess 145 mcg capsule TAKE 1 CAPSULE BY MOUTH EVERY DAY 30 capsule 11 Active Ventolin HFA 90 mcg/actuation inhaler TAKE 2 PUFFS BY MOUTH EVERY 4 HOURS NEEDED FOR COUGH OR WHEEZING. 18 each 1 Active albuterol HFA (PROVENTIL HFA;VENTOLIN HFA) 108 (90 Base) MCG/ACT inhaler Sig - Route: Take 2 Puffs by mouth every 4 hours as needed for Cough or Wheezing. - Oral Sent to pharmacy as: Albuterol Sulfate HFA 108 (90 Base) MCG/ACT Inhalation Aerosol Solution (Ventolin HFA) 2024 Discontinued linaCLOtide (Linzess) 145 mcg capsule Take 1 tablet by mouth 1 (one) time each day. 024 2024 Discontinued Active Problems Problem Noted Date Diagnosed Date Complex regional pain syndrome type 1 08/12/2024 Vitamin D deficiency 01/21/2024 Seasonal allergies 05/30/2022 Anxiety and depression 10/22/2021 Cervical paraspinous muscle spasm 10/22/2021 Fibromyalgia 11/17/2020 Migraine 07/03/2018 Overview (08/12/2024): Seen at [facility], initial visit 09/26/2020. Nerve blocks and trigger point injections done 10/04/2020 and 01/04/2021. Acne vulgaris 08/21/2016 Asthma 01/09/2012 Encounters Date Type Department Care Team Description 01/24/2025 2:15 PM EDT Office Visit Orthopedic Surgery [facility] 250 175 [facility] 250 [place] [phone] Diaz Galeana DPJanet Fibromyalgia (Primary Dx); Complex regional pain syndrome type 1, affecting unspecified site 12/31/2024 Telephone Orthopedic Surgery [facility] [address] [phone] Nena Zepeda 11/19/2024 Telephone Internal Medicine - [facility] [address] [place] [address] Ho Araya MD PT1 (Piero Shashank @ [facility]-Rheumatology ) 11/19/2024 Telephone Internal Medicine - [facility] [address] [place] [address] Ho Araya MD Letter for School/Work 11/15/2024 12:57 PM EST - 11/15/2024 11:59 PM EST Hospital Encounter [facility] Ultrasound [address] [place] [address] Cervicalgia Discharge Disposition: Home or Self Care 11/09/2024 Telephone Internal Medicine - [facility] [address] [place] [address] Ho Araya MD faxed refill 11/08/2024 Telephone Gastroenterology [facility] 175 [facility] 175 [facility] 200 [place] [address] Christos Blackwell PA from Last 3 Months Immunizations Name Administration Dates Next Due Influenza Quadravalent, MDCK , 0.5ml, preservative free (Flucelvax) 6mo and older 10/22/2021 Influenza trivalent, with pr eservative (Fluzone; Afluria) 6mo and older 08/21/2016 Surgical History Surgery Date Site/Laterality Comments BREAST SURGERY PROCEDURE:TRANSUMBILICAL AUGMENTATION MAMMAPLASTY OVARIAN CYST REMOVAL PROCEDURE:OVARIAN CYST REMOVAL OVARIAN CYST REMOVAL N/A PROCEDURE: [place] OVARIAN CYSTECTOMY UNI/BI BREAST SURGERY PROCEDURE: [place] BREAST AUGMENTATION WITH IMPLANT Medical History Medical History Date Comments Asthma DX:Asthma Migraines 07/03/2018 DX:Migraines; CO MMENT: Seen at [facility], initial visit 09/26/2020. Nerve [...] Care Team (Late st Contact Info) Description 03/15/2025 2:[address] [facility] Xray [address] [place] [phone] 05/02/2025 10:30 AM EDT Office Visit [facility] Hematology Oncology [address] [place] [phone] Clotilde Lux, [address] [place] [address] Health Maintenance Due Date Last Done Comments Hepatitis B Vaccines (1 of 3 - 19+ 3-dose series) 2011 Pneumococcal Vaccine: Pediatrics (0 to 5 Years) and At-Risk Patients (6 to 64 Years) (1 of 2 - PCV) 2011 Cervical Cancer Screening: Pap Smear 2013 HIV Screening 10/05/2022 Social Influencers of Health Screening 10/05/2022 COVID-19 Vaccine ( season) 2024 Depression Screening 05/12/2025 05/12/2024 Influenza Vaccine (Season Ended) 2025 10/22/2021, 08/28/2020, 08/02/2019, Additional history exists Cholesterol Screening (Lipid Panel) 05/12/2029 05/12/2024, 05/12/2024 [...] Procedure Name Priority Date/Time Associated Diagnosis Comments EXTERNAL CLINICAL LAB 01/17/2025 C-REACTIVE PROTEIN Routine 12/29/2024 11 :47 AM EST EXTERNAL MRI REPORT 12/27/2024 EXTERNAL CLINICAL LAB 12/23/2024 EXTERNAL CLINICAL LAB 12/20/2024 EXTERNAL CLINICAL LAB 12/16/2024 HEAD NECK SOFT TISSUE Routine 11/15/2024 1:19 PM EST Cervicalgia DEPRESSION SCREENING Routine 05/12/2024 LIPID PANEL Routine 05/12/2024 HEPATITIS C SCREENING Routine 11/17/2020 from Last 3 Months or Most Recently Relevant to Health Maintenance Results * External clinical lab (01/17/2025) Only the most recent of4 resultswithin the time period is included. Provider [facility] LAB BLOOD ORDERABLES Fin al Result * C-reactive protein (12/29/2024 11:47 AM EST) Blood Venous blood specimen / Unknown Rojelio Olievr MD LAB BLOOD ORDERABLES Final Result * External MRI Report (12/27/2024) Anatomical Region Laterality Modality Magnetic Resonan ce us Provider [facility] IMG MRI PROCEDURES Final Result * US Head Neck Soft Tissue [...] Signed Date: 11/23/2024 08:29 ET Workstation ID: [id number] Transcribed By: Self Edit Transcribed Date: 11/23/2024 [...] Signed Date: 11/23/2024 08:29 ET Workstation ID: [id number] Transcribed By: Self Edit Transcribed Date: 11/23/2024 08:27 ET us Piero SHIRLEY IMCayden US PROCEDURES Final Res ult * Depression Screening (05/12/2024) Depression Screening abstracted us Historical Provider HEALTH MAINTENANCE Final Result * [...] Most Recently Relevant to Health Maintenance Insurance [facility] [employer] Care Teams Cfd Engineer Relationship Specialty Start Date End Date Ho Araya MD [address] [place] [address] PCP - General Internal Medicine 07/25/15
--- OUTSIDE RECORDS SUMMARY | 2025-02-04 15:05 | XMS_ITS | Clinical Summary ---
Author Organization [facility] Address [address] [place] [address] Care Team Providers Care Hop Sorter Name Role Phone Ho Araya MD Primary Care Provider [phone] Allergies Active Allergy Reactions Criticality Noted Date [...] age to complete this topic Care Teams Hop Sorter Relationship Specialty Start Date End Date Ho Araya MD PCP - General Internal Medicine 05/19/24
--- OUTSIDE RECORDS SUMMARY | 2025-02-04 15:05 | XMS_ITS | Clinical Summary ---
Author Organization [facility] Address [address] [place] [address] Care Team Providers Care Detention Sergeant Name Role Phone Wendi Toney MD Primary [...] age to complete this topic Care Teams Detention Sergeant Relationship Specialty Start Date End Date Wendi Toney MD [address] [facility] [place] [address] PCP - General Internal Medicine 08/31/20
--- OUTSIDE RECORDS SUMMARY | 2025-02-04 15:05 | XMS_ITS | Encounter Summary ---
Author Organization [facility] Address [address] [place] [address] Care Team Providers Care Channel Process Plant Operator Name Role Phone Ho Araya MD Primary Care Provider [phone] Encounter Details Date Type Department Care Team (Late Contact Info) Description 09/24/2024 Lab Requisition [facility] - Main Lab [address] [facility] [place] [phone] Sergio Gross PA [address] [facility] [address] [place] [phone] Other microscopic hematuria Social History Tobacco Use [...] Department Care Team (Late Contact Info) Description 03/15/2025 2:30 PM EDT Appointment [facility] Xray [address] [place] [phone] 05/02/2025 10:30 AM EDT Office Visit [facility] Hematology Oncology [address] [place] [phone] Clotilde Lux, [address] [place] [address] documented as of this encounter Procedures Procedure [...] [facility] Clinical Information [id number], Urine cyto/urine FISH. 10/12/2024 9:06 AM [facility] Gross Description A. Urine, Voided, : [id number] recd 1 TP cyto 1 TP fish. 10/12/2024 9:06 AM [facility] Disclaimer Unless otherwise specified, all tissue is 10% NB formalin fixed and paraffin embedded. 10/12/2024 9:06 AM [facility] Tissue Urine specimen from urethra / Unknown 09/21/2024 09/24/2024 1:47 PM EST us Sergio [facility] PATHOLOGY ORDERABLES Edite d Result - Final [facility] [address] [place] [address], documented in this encounter Visit Diagnoses Diagnosis Other microscopic hematuria documented in this encounter Care Teams Channel Process Plant Operator Relationship Specialty Start Date End Date Ho Araya MD [address] [place] [address] PCP - General Internal Medicine 07/25/15 documented as of this encounter
--- OUTSIDE RECORDS SUMMARY | 2025-02-04 15:05 | XMS_ITS | Data Portability ---
Author Organization [facility], [address] Address [address] [place] [address] Assessment No assessment recorded. Plan of Treatment Reminders Order Date Submit Date Provider Last Modified By Organization Details Last Modified Time Details Appointments None recorded. Lab rapid strep group A, throat 2022 023 [email or web address] [address], [address] [place], [address], 3 13:02:13 streptococc us group A, culture, throat 2022 023 [email or web address] [facility], [address] [place] [address], [place], [address], 3 13:11:10 Referral None recorded. Procedures None recorded. Surgeries None recorded. Imaging None recorded. Medication Orders prednisone 20 mg tablet 2023 024 [facility] #1130, [phone] [place], [address], 4 09:11:00 cefdinir 300 mg capsule 2023 024 [facility]1130, [phone] [place], [address], 4 09:10:58 Ciprodex 0.3 %-0.1 % ear drops,suspe nsion 2023 024 [facility]1130, [phone] [place], [address], 4 08:57:12 Zithromax Z-Kory 250 mg tablet 2023 024 [facility], [phone] [place], [address], 4 09:49:54 Polytrim 10,000 unit-1 mg/mL eye drops 2022 023 [facility], [phone] [place], [address], 3 10:38:33 Patient TargetsNo targets recorded. Patient Instructions Encounter Date Encounter Id Patient Instructions Last Modified By Organization Details Last Modified Time 12/31/2022 [id number] pinkeye: care instructions [email or web address] Not available 12/31/2022 13:04:53 sore throat: car e instructions [email or web address] Not available 12/31/2022 13:02:13 Use the eye [...] Emergency Medical evaluation for any worsening symptoms. Not available 12/31/2022 13:07:42 01/07/2023 [id number] sore throat: car e instructions Not available 01/07/2023 11:57:17 04/18/2024 [id number] Your ear does no t currently look [...] Ricky dorsey Not available 04/18/2024 09:22:15 06/19/2024 [id number] middle ear fluid : care instructions [email or web address] [...] p A). (CLSI ) Not Available [facility] ([facility]) [address] [facility], [place], [address], 01/02/2023 12:06:18 12/31/19 23 12/31/2022 rapid strep group A, throa t Unknown Analyte Normal = Negati ve Not Available [address] [place], [address], 12/31/2022 11:53:41 12/31/19 23 12/31/2022 rapid strep group A, throa t Unknown Analyte negati ve Not Available [address] [place], [address], 12/31/2022 11:53:41 Result Notes None recorded. Problems Name Problem SNOMED Code Status Onset Date Resolution Date Notes Provider Name and Address Organization Details Recorded Time Otitis externa of left ear 4016544063362 109 Active 2023 Deacon Evans, DO [address] , [place], [address], [place] - [facility] 4 09:49:06 Acute left otitis media 071495027 Active 2023 Deacon Evans, DO [address] , [place], [address], [place] - [facility] 4 11:56:45 Acute serous otitis media of bilateral ears 9247983551300 107 Active 2023 Boyd Dodge, [employer] [address] , [place], [address], [place] - [facility] 4 09:08:47 Bilateral earache 313449432 Active 2023 Boyd Dodge, [employer] [address] , [place], [address], [place] - [facility] 4 09:09:15 Fibromyalgi a 700399830 Active 2022 TONYA DESMITH null, PA - [facility] 3 11:56:52 Migraine 81941118 Active 2022 TONYA DESMITH null, PA - [...] Name and Address Organization Details Recorded Time 508021 Product containin g penicilli n (product) medicatio n rash Not available Not available 12/31/2022 30703 8001 SNOMED TONYA DESMDELPHINE null, PA - [facility] 3 11:54:53 [id number] Reglan medicatio n itching Not available Not [...] Details Last Updated DateTime 4 167.64 cm 86145.4 2 g 98 % 98 % 7 [...] DateTime 4 167.64 cm 7 97.1 [degF] 20248.0 1 g 98 % 98 % 90 /min 96 mm[Hg] 65 mm[Hg] Karla Kilgore PA - [facility] 4 08:38:15 Date Recorded Body height Body weight Body mass index (BMI) Heart rate Respiratory rate Body temperature Systolic blood pressure Diastolic blood pressure Provider Name and Address Organization Details Last Updated DateTime 4 167.64 cm 11096.6 g 21.1 kg/m2 68 /min 18 /min [...] Updated DateTime 3 168.91 cm 22.3 kg/m2 43119.9 3 g 5 99 % 99 % 104 /min 20 /min 98.2 [degF] 104 mm[Hg] 70 mm[Hg] TONYA MICHELLE PA - [facility] 3 12:00:10 Date Recorded Body height Body mass index (BMI) Body weight Pain severity - 0-10 verbal numeric rating [Score] - Reported Provider Name and Address Organization Details Last Updated DateTime 01/07/2023 168.91 cm 22.3 kg/m2 28208.93 g 7 TONYA MICHELLE [facility] - [facility] [...] Had A Flu Shot This Season? No [email or web address] Information not available 04/18/2024 What Is Your Water Source? City Information not available 06/19/2024 What Is Your Heat Source? Other Information not available 06/19/2024 Have You Had Direct Contact, Or Contact During Intimacy, With Monkeypox Rash, Scabs, Or Body Fluids From A Person With Monkeypox? No [email or web address] Information not available 04/03/2024 What Was The Date Of Your Most Recent Tobacco Screening? 04/18/2024 [email or web address] Information not available 04/18/2024 Are You Passively [...] SNOMED-CT Code Diagnosis ICD10 Code Diagnosis Note [id number] [address] [place] [address] 03/10/2019 15:42:30 03/10/2019 17:32:00 [id number] [address] [place] [address] 01/26/2022 10:49:30 01/26/2022 12:09:11 [id number] [address] [place] [address] 07/21/2021 11:45:18 07/21/2021 15:15:57 [id number] [address] [place] [address] 12/26/2019 08:04:10 12/26/2019 08:36:06 [id number] [address] [place] [address] 06/11/2022 18:25:04 06/11/2022 19:35:13 [id number] [place] [address] [place] [address] 12/31/2022 11:33:22 12/31/2022 13:09:21 Acute pharyngitis 652002465 J02.9 Acute conj unctivitis of left eye 3513274921 45214 H10.32 [id number] Alessia Mead [facility] [address] [address] [place] [address] 01/07/2023 10:17:20 01/07/2023 12:01:17 Left without being seen 4323201594 9102 Z53.21 [id number] Deacon Evans [place] [address] [place] [address] 04/03/2024 09:21:52 04/03/2024 10:13:05 Otitis externa of left ear 8204561384 282664 H60.92 See pcp in 3-4 days or return to urgent care in 3-4 days if cant be seen by pcp for follow up. Go to ER if anything worsens. Otc tylenol as needed for pain. Symptomati c treatment. All of patients questions have been answered. Patient has understand ing and agreement of all of this. Acute left otitis media 112645284 H66.92 pt is rx zpak. sx tx. slight erythema to left tm [id number] [facility] [address] [facility] [address] [place] [address] 04/18/2024 08:23:00 04/18/2024 09:23:34 Otalgia of left ear 7763251693 H92.02 [id number] Boyd Dodge NP [address] [facility] [address] [place] [address] 06/19/2024 08:40:12 06/19/2024 09:15:56 Acute serous otitis media of bilateral ears 8832527895 489241 H65.03 You have been diagnosed with a [...] antibiotic resistance . Thank you for using [facility] today - and don't hesitate to contact our office if you have any concerns or questions. Bilateral earache 645991 003 H92.03 Health Concerns Section Related Observation LastModified by Organization Detai ls LastModified Time None Recorded Concern Status LastModified by Organization Details LastModified Time None Recorded Advance Directives Directive None Recorded Payers Encounter Date Sequence Insurance Name Policy Number Policy [place] Covered Member ID [place] Member ID Guarantor Name 12/31/2022 1 [facility] (MEDICAID HMO) [employer] Lismarie Dykes [id number] Lismarie Dykes 01/07/2023 1 [facility] (MEDICAID HMO) [employer] Lismarie Dykes [id number] Lismarie Dykes 04/03/2024 1 [facility] (MEDICAID HMO) [employer] Lismarie Dykes [id number] Lismarie Dykes 04/18/2024 1 [facility] (MEDICAID HMO) [employer] Lismarie Dykes [id number] Lismarie Dykes 06/19/2024 1 [facility] (MEDICAID HMO) [employer] Lismarie Dykes [id number] Lismarie Dykes Notes Date Note Type Note [...] Alessia Mead MD [address] [place], [address], [place] - [facility] 01/01/2023 13:02:57 04/03/20 24 text/htm l hx of multiple ear infections in past. follows ent for this. has now left ear pain for the past 4 days. getting worse. no trauma. no fevers. no hearing loss. other uri sx. no chance she is pregant or nursing. Deacon Evans DO [address] [place], [address], [place] - [facility] 04/03/2024 11:57:32 04/18/20 [...] ciprodex [facility] No [address] [place], [address], [place] - [facility] 04/18/2024 09:22:30 06/19/20 [...] Dodge NP [address] [place], [address], [place] - [facility] 06/19/2024 09:11:50 OBGyn Episode No OBEpisode recorded.
--- OUTSIDE RECORDS SUMMARY | 2025-02-04 15:05 | XMS_ITS | Data Portability ---
Author Organization [facility], Allergy Address [address] [address] Care Team Providers Care Continuous Improvement Intern Name Role Phone MCKENZIEMARLYN PANCHAL Primary [...] their symptoms. keisha Not available 12/30/2024 10:55:26 01/24/2025 01/24/2025 Visit With: Wayne Paige RN Use of Antihistamines: No If yes: Vial Test Yes Change in medications: Yes If yes ? ? ?updated medication list Increase in asthma symptoms No If yes, inhaler use: Reaction to last injections: If yes: ? ? ? Allergy Symptoms: PND Other: ? ? ? Missed: Dose Aware of Vial Test Notes:? ? ?Patient with possible diagnosis of POTS and Heds- asking for blood work for [facility]. Message will be sent to provider. [email or web address] Not available 01/24/2025 10:53:49 Plan of Treatment Reminders Order Date Submit Date Provider Last Modified By Organization Details Last Modified Time Details Appointments Establish ed- Allergy f-up 6mon 2024 10:15A M NEMESIO MENDEZ PA-C Not available Not available Not available [...] mL injection , auto-inje ctor 2024 025 [facility]/Pharmacy #[id number], [phone] [place], [address], 12/30/2024 10:26:56 Patient TargetsNo targets recorded. Patient [...] >100. 00 Very High Not Available [facility] ([facility]) [address] [place], [address], 10/29/2024 23:16:49 10/28/20 24 10/29/2024 ALLER GENS, ZONE 1 O563-CcQ D pteronyssinu s 0.16 kU/L class 0/I abnormal Not Available [facility] ([facility]) [address] [place], [address], 10/29/2024 23:16:49 10/28/20 24 10/29/2024 ALLER GENS, ZONE 1 E764-EcQ D farinae 0.12 kU/L class 0/I abnormal Not Available [facility] ([facility]) [address] [place], [address], 10/29/2024 23:16:49 10/28/20 24 10/29/2024 ALLER GENS, ZONE 1 Q622-QqF CAT dander 0.12 kU/L class 0/I abnormal Not Available [facility] ([facility]) [address] [place], [address], 10/29/2024 23:16:49 10/28/20 24 10/29/2024 ALLER GENS, ZONE 1 T329-MkQ dog dander 5.14 kU/L class IV abnormal Not Available [facility] ([facility]) [address] [place], [address], 10/29/2024 23:16:49 10/28/20 24 10/29/2024 ALLER GENS, ZONE 1 t956-EyT bermuda grass <0.10 kU/L class 0 Not Available [facility] ([facility]) [address] [place], [address], 10/29/2024 23:16:49 10/28/20 24 10/29/2024 ALLER GENS, ZONE 1 e083-IhC bluegrass, k[place] <0.10 kU/L class 0 Not Available [facility] ([facility]) [address] [facility] [place], [address], 10/29/2024 23:16:49 10/28/20 24 10/29/2024 ALLER GENS, ZONE 1 m567-JwP bahia grass <0.10 kU/L class 0 Not Available [facility] ([facility]) [address] [place], [address], 10/29/2024 23:16:49 10/28/20 24 10/29/2024 ALLER GENS, ZONE 1 Z636-KyL cockroach, guinean 0.10 kU/L class 0/I abnormal Not Available [facility] ([facility]) [address] [place], [address], 10/29/2024 23:16:49 10/28/20 24 10/29/2024 ALLER GENS, ZONE 1 D876-EmI penicillium chrysogen <0.10 kU/L class 0 Not Available [facility] ([facility]) [address] [place], [address], 10/29/2024 23:16:49 10/28/20 24 10/29/2024 ALLER GENS, ZONE 1 T941-TlG cladosporium herbarum <0.10 kU/L class 0 Not Available [facility] ([facility]) [address] [place], [address], 10/29/2024 23:16:49 10/28/20 24 10/29/2024 ALLER GENS, ZONE 1 Y223-ZsW aspergillus fumigatus <0.10 kU/L class 0 Not Available [facility] ([facility]) [address] [place], [address], 10/29/2024 23:16:49 10/28/20 24 10/29/2024 ALLER GENS, ZONE 1 E033-YeB mucor racemosus <0.10 kU/L class 0 Not Available [facility] ([facility]) [address] [place], [address], 10/29/2024 23:16:49 10/28/20 24 10/29/2024 ALLER GENS, ZONE 1 H216-LwS alternaria alternata <0.10 kU/L class 0 Not Available [facility] ([facility]) [address] [place], [address], 10/29/2024 23:16:49 10/28/20 24 10/29/2024 ALLER GENS, ZONE 1 E306-PwD stemphylium herbarum <0.10 kU/L class 0 Not Available [facility] ([facility]) [address] [place], [address], 10/29/2024 23:16:49 10/28/20 24 10/29/2024 ALLER GENS, ZONE 1 H202-WsU common silver birch 3.39 kU/L class III abnormal Not Available [facility] ([facility]) [address] [place], [address], 10/29/2024 23:16:49 10/28/20 24 10/29/2024 ALLER GENS, ZONE 1 T760-QdI oak, white 10.60 kU/L class IV abnormal Not Available [facility] ([facility]) [address] [place], [address], 10/29/2024 23:16:49 10/28/20 24 10/29/2024 ALLER GENS, ZONE 1 R522-KaU elm, guinean <0.10 kU/L class 0 Not Available [facility] ([facility]) [address] [place], [address], 10/29/2024 23:16:49 10/28/20 24 10/29/2024 ALLER GENS, ZONE 1 R979-BrI samira, white <0.10 kU/L class 0 Not Available [facility] ([facility]) [address] [place], [address], 10/29/2024 23:16:49 10/28/20 24 10/29/2024 ALLER GENS, ZONE 1 N613-EeZ maple/box elder 0.23 kU/L class 0/I abnormal Not Available [facility] ([facility]) [address], [place], [address], 10/29/2024 23:16:49 10/28/20 24 10/29/2024 ALLER GENS, ZONE 1 M210-UeI hazelnut tree 1.25 kU/L class II abnormal Not Available [facility] ([facility]) [address], [place], [address], 10/29/2024 23:16:49 10/28/20 24 10/29/2024 ALLER GENS, ZONE 1 K446-GdH hickory, white 0.13 kU/L class 0/I abnormal Not Available [facility] ([facility]) [address] [place], [address], 10/29/2024 23:16:49 10/28/20 24 10/29/2024 ALLER GENS, ZONE 1 Z379-UkD white mulberry <0.10 kU/L class 0 Not Available [facility] ([facility]) [address] [place], [address], 10/29/2024 23:16:49 10/28/20 24 10/29/2024 ALLER GENS, ZONE 1 Z789-SlC cedar, mountain <0.10 kU/L class 0 Not Available [facility] ([facility]) [address] [place], [address], 10/29/2024 23:16:49 10/28/20 24 10/29/2024 ALLER GENS, ZONE 1 Y686-UpZ ragweed, short <0.10 kU/L class 0 Not Available [facility] ([facility]) [address] [place], [address], 10/29/2024 23:16:49 10/28/20 24 10/29/2024 ALLER GENS, ZONE 1 Z768-OdG mugwort <0.10 kU/L class 0 Not Available [facility] ([facility]) [address] [place], [address], 10/29/2024 23:16:49 10/28/20 24 10/29/2024 ALLER GENS, ZONE 1 V360-ArW plantain, irish <0.10 kU/L class 0 Not Available [facility] ([facility]) [address] [place], [address], 10/29/2024 23:16:49 10/28/20 24 10/29/2024 ALLER GENS, ZONE 1 A661-JxC pigweed, common <0.10 kU/L class 0 Not Available [facility] ([facility]) [address] [place], [address], 10/29/2024 23:16:49 10/28/20 24 10/29/2024 ALLER GENS, ZONE 1 W046-YjF sheep sorrel <0.10 kU/L class 0 Not Available [facility] ([facility]) [address] [place], [address], 10/29/2024 23:16:49 10/28/20 24 10/29/2024 ALLER GENS, ZONE 1 X604-WgE nettle <0.10 kU/L class 0 Not Available [facility] ([facility]) [address] [place], [address], 10/29/2024 23:16:49 10/28/20 24 10/29/2024 FOOD ALLER GY PROFI LE C577-LoX egg white 0.21 kU/L class 0/I abnormal Not Available [facility] ([facility]) [address] [place], [address], 10/29/2024 23:16:50 10/28/20 24 10/29/2024 FOOD ALLER GY PROFI LE K675-VgA peanut <0.10 kU/L class 0 Not Available [facility] ([facility]) [address] [place], [address], 10/29/2024 23:16:50 10/28/20 24 10/29/2024 FOOD ALLER GY PROFI LE U108-FuP soybean <0.10 kU/L class 0 Not Available [facility] ([facility]) [address] [place], [address], 10/29/2024 23:16:50 10/28/20 24 10/29/2024 FOOD ALLER GY PROFI LE I233-LwJ milk 0.66 kU/L class II abnormal Not Available [facility] ([facility]) [address] [place], [address], 10/29/2024 23:16:50 10/28/20 24 10/29/2024 FOOD ALLER GY PROFI LE S294-VxD clam <0.10 kU/L class 0 Not Available [facility] ([facility]) [address] [place], [address], 10/29/2024 23:16:50 10/28/20 24 10/29/2024 FOOD ALLER GY PROFI LE Y272-ZjA shrimp 0.10 kU/L class 0/I abnormal Not Available [facility] ([facility]) [address] [place], [address], 10/29/2024 23:16:50 10/28/20 24 10/29/2024 FOOD ALLER GY PROFI LE B871-OjR walnut <0.10 kU/L class 0 Not Available [facility] ([facility]) [address] [place], [address], 10/29/2024 23:16:50 10/28/20 24 10/29/2024 FOOD ALLER GY PROFI LE O551-VzM codfish <0.10 kU/L class 0 Not Available [facility] ([facility]) [address] [place], [address], 10/29/2024 23:16:50 10/28/20 24 10/29/2024 FOOD ALLER GY PROFI LE I465-IcU scallop <0.10 kU/L class 0 Not Available [facility] ([facility]) [address], [place], [address], 10/29/2024 23:16:50 10/28/20 24 10/29/2024 FOOD ALLER GY PROFI LE Q531-OgW wheat <0.10 kU/L class 0 Not Available [facility] ([facility]) [address], [place], [address], 10/29/2024 23:16:50 10/28/20 24 10/29/2024 FOOD ALLER GY PROFI LE M934-FzX corn <0.10 kU/L class 0 Not Available [facility] ([facility]) [address], [place], [address], 10/29/2024 23:16:50 10/28/20 24 10/29/2024 FOOD ALLER GY PROFI LE N365-ZzW sesame seed <0.10 kU/L class 0 Not Available [facility] ([facility]) [address], [place], [address], 10/29/2024 23:16:50 10/28/20 24 10/29/2024 IMMUN OGLOB ULIN E, TOTAL immunoglobul in E, total 81 IU/mL 6-495 Not Available [facility] ([facility]) [address] [place], [address], 10/29/2024 23:16:50 06/23/20 24 03/18/2024 imagi ng/di agnos tic resul t No observ ation record ed. [email or web address] Not Available 21:06:53 08/06/20 audio gram No observ ation record ed. [email or web address] Not Available 2023 15:00:15 08/27/20 24 audio gram No observ ation record ed. [email or web address] Not Available 08/04 11:42:10 Result Notes None recorded. Problems Name Problem SNOMED Code Status Onset Date Resolution Date Notes Provider Name and Address Organization Details Recorded Time Chronic pharyngit is 521606 Active 2016 Chronic sore throat; Note: Date Diagnosed : 11/08/2016 2:47 PM (J31.2) Not Available [facility] 4 02:30:50 Gastroeso phageal reflux disease without esophagit is 879124074 Active 2016 Gastro-es ophageal reflux disease without esophagit is; Note: Date Diagnosed : 11/08/2016 2:47 PM (K21.9) Not Available [facility] 4 02:30:44 Mass of neck 734871796 Active 2014 Localized swelling, mass and lump, neck; Note: Date Diagnosed : 5 5:39 AM (R22.1) Not Available [facility] 4 02:30:45 Neck swelling 173400352 Active 2014 Localized swelling, mass and lump, neck; Note: Date Diagnosed : 5 5:39 AM (R22.1) Not Available [facility] 4 02:30:45 Lesion of oral mucosa 51986944339 68830 Active 2016 Other lesions of oral mucosa; Note: Date Diagnosed : 11/08/2016 2:53 PM (K13.79) Not Available [facility] 4 02:31:01 Tinnitus of left ear 46159229026 06 Active 2023 LAVONNE RODRIGUEZ MD [address] [facility],[place] [address], [place], [address] , [place] [facility] 4 11:32:24 Migraine 07895447 Active 2023 LAVONNE RODRIGUEZ MD [address] [facility] [address], [place], [address] , [place] [facility] 4 11:32:34 Pharyngea l dysphagia 53923801472 105 Active 2023 LAVONNE RODRIGUEZ MD [address] [facility] [place] [address], [place], [address] , [facility] [place] 4 11:32:47 Abnormal auditory perceptio n 10039941 Active 2023 LAVONNE RODRIGUEZ MD [address] [facility] [place] [address], [place], [address] , [place] [facility] [place] 4 11:33:02 Abnormal auditory perceptio n 67310291 Active 2023 LION HEREDIA MD [address] [facility],[place] [address], [place], [address] , [place] [facility] [place] 4 14:26:32 Neck pain 89403287 Active 2023 LION HEREDIA MD [address] [facility],[place] [address], [place], [address] , [place] [facility] [place] 4 14:26:40 Pain of left temporoma ndibular joint 29328608305 522632 Active 2023 LION HEREDIA MD [address] [facility],[place] [address], [place], [address] , [place] [facility] [place] 4 14:26:28 Posterior rhinorrhe a 39681486 Active 2023 MARY SCHREIBER PA-C [address] [facility],[place] [address], [place], [address] , [place] [facility] [place] 4 10:48:17 Allergic rhinitis 17545469 Active 2023 MARY SCHREIBER PA-C [address] [facility],[place] [address], [place], [address] , [place] [facility] [place] 4 10:48:34 Perennial allergic rhinitis 330370995 Active 2023 PATIENCE PRADO, [facility] [address] [place],[facility] 100, [place], [address] , [place] [facility] [place] 08:39:44 Problem Notes None recorded. Procedures Surgical History Date Name Laterality Status Provider Name and Address Organization Details Recorded Time 01/25/20 25 Allergy Immunotherapy Injections completed BERTIN PAIGE RN [address] [facility],[address], [address], [facility] - [facility] 01/24/2025 10:49:11 08/27/20 24 Tympanometry (49303) completed Melodie GANN [address] [facility],[address], [address], [facility] - [facility] 08/27/2024 10:00:48 08/06/20 24 Air & Speech Audio with Tymps (98037, 96833 & 32808) completed SIMBA ALEGRE MA, CCC-A [address] [facility],[address], [address], [facility] - [facility] 08/06/2024 14:03:16 03/18/20 24 Fiberoptic Laryngoscopy (Comprehensive) completed LAVONNE SIM MD [address] [facility],[address], [address], [facility] - [facility] 03/18/2024 11:32:05 03/18/20 24 Air only Audio (49316) completed MELODIE DELCID [address] [facility],[address], [address], [facility] - [facility] 03/18/2024 11:52:00 03/18/20 24 SRT & Speech Recognition (32835) completed MELODIE DELCID [address] [facility],[address], [address], [facility] - [facility] 03/18/2024 11:52:17 11/03/19 18 removal of sebaceous cyst completed Rizwan Castillo [place] [facility] 03/18/2024 11:23:09 11/03/19 17 Breast augmentation w/implt completed Rizwan Castillo [place] [facility] 03/18/2024 11:23:46 therapeutic cervical epidural injection completed LAVONNE SIM MD [address] [facility],[address], [place], [address], [place] [facility] 03/18/2024 11:24:17 Imaging Results Imaging Date Name Status LastModified by Organiz ation Details LastModified Time 03/18/2024 imaging/diagno stic result completed [email or web address] Information not available 06/23/2024 21:06:53 08/06/2024 audiogram completed [email or web address] Information no t available 08/06/2024 15:00:15 08/27/2024 audiogram completed [email or web address] Information n ot available 08/27/2024 11:42:10 Procedure Notes None recorded. Medical Equipment None Reported. Allergies Allergen ID Allergen Name Allergen Category Reaction Reaction Severity Criticality Documentation Date Start Date Code Code System Note Provider Name and Address Organization Details Recorded Time 49780 penicilli n V potassium medicatio n rash Not available Not available 03/16/202402455 5 RxNorm React ion: unkno wn, unspe cifie d;; Not Available [facility] 00:54:41 Medications Name Sig Start [...] 1 TABLET BY MOUTH TWICE A DAY 01/24 completed Not Available Not Available Not Available neomycin- polymyxin -hydrocor t 3.5 mg/mL-10, 000 unit/mL-1 % ear solution INSTILL 3 DROPS INTO AFFECTED EAR(S) TWICE DAILY X 10 DAYS 01/24 completed Not Available Not Available Not Available venlafaxi ne ER 37.5 mg capsule,e [...] ONCE, REPEAT IN 72 HOURS X 2. 01/24 completed Not Available Not Available Not Available senna 8.6 mg tablet TAKE 1 TABLET BY MOUTH EVERY DAY 01/24 completed Not Available Not Available Not Available sucralfat e 100 mg/mL oral suspensio n TAKE 10 ML BY MOUTH 4X A DAY (WITH MEALS AND NIGHTLY) . TAKE 1 HOUR BEFORE MEALS AND AT BEDTIME 01/24 completed Not Available Not Available Not Available ondansetr on HCl 8 mg tablet TAKE 1 TABLET BY MOUTH EVERY DAY NEEDED X 30 DAYS active Not Available Not Available No t Available meloxicam 15 mg tablet TAKE 1 TABLET BY MOUTH EVERY DAY 01/24 completed Not Available Not Available Not Available promethaz ine 12.5 mg tablet TAKE 1 TABLET BY MOUTH EVERY 6 HOURS NEEDED FOR NAUSEA 01/24 completed Not Available Not Available Not Available metronida zole 0.75 % (37.5 mg/5 [...] FOR PAIN FOR UP TO 10 DAYS. 01/24 completed Not Available Not Available Not Available hydromorp stacey 2 mg tablet TAKE 1 TABLET BY MOUTH EVERY 4 HOURS NEEDED FOR PAIN 01/24 completed Not Available Not Available Not Available alprazola m 0.25 mg tablet active [...] INTO BOTH EYES 4 TIMES A DAY 01/24 completed Not Available Not Available Not Available lidocaine 5 % topical patch APPLY 1 PATCH TOPICALL Y DAILY (REMOVE AFTER 12 HOURS AND KEEP OFF 12 HOURS) active Not Available Not Available No t Available docusate sodium 100 mg capsule TAKE 1 CAPSULE BY MOUTH TWICE A DAY 01/24 completed Not Available Not Available Not Available sertralin e 25 mg tablet TAKE [...] EVERY 6 HOURS NEEDED FOR NAUSEA/V OMITING 01/24 completed Not Available Not Available Not Available cefdinir 300 mg capsule TAKE 1 [...] MOUTH EVERY 6 HOURS NEEDED FOR PAIN 01/24 completed Not Available Not Available Not Available Monica-Lant a 200 mg-200 mg-20 mg/5 mL oral suspensio n TAKE 15 ML BY MOUTH 4 (FOUR) TIMES A DAY (BEFORE MEALS AND NIGHTLY) FOR 7 DAYS. 01/24 completed Not Available Not Available Not Available azithromy nasra 500 mg tablet TAKE [...] MOUTH TWICE A DAY FOR 5 DAYS 01/24 completed Not Available Not Available Not Available pregabali n 150 mg capsule TAKE 1 CAPSULE BY MOUTH THREE TIMES A DAY 01/24 completed Not Available Not Available Not Available pregabali n 200 mg capsule active Not Available Not Available Not Available pregabali n 225 mg capsule TAKE 1 CAPSULE BY MOUTH TWICE A DAY 01/24 completed Not Available Not Available Not Available chlorhexi dine gluconate 0.12 % mouthwash [...] TABLET (ORAL) EVERY EVENING FOR 90 DAYS 01/24 completed Not Available Not Available Not Available omeprazol e 20 mg tablet,de layed release 1 tablet 2016 active Medicati on ID: [id number] P rennyripankaj d By Name: Colleen jensen MD Brand Name: omeprarosita driscoll Send Method: E-Prescr ibed Sub s Allowed: [...] height Body mass index (BMI) Body weight Heart rate Systolic blood pressure Diastolic blood pressure Provider Name and Address Organization Details Last Updated DateTime 170.18 cm 19.4 kg/m2 16999.4 5 g 82 /min 107 mm[Hg] 71 mm[Hg] BERTIN PAIGE RN [address] [place] [address], [address], [place] [facility] 10:28:45 Date Recorded Body height Body mass index (BMI) Body weight Provider Name and Address Organization Details Last Updated DateTime 05/07/2024 167.64 cm 20.7 kg/m2 81611.82 g Kike Casanova [place] [facility] 05/07/2024 14:00:00 Date Recorded Body height Body mass index (BMI) Body weight Provider Name and Address Organization Details Last Updated DateTime 08/06/2024 167.64 cm 19.4 kg/m2 78158.08 g Rizwan Castillo [place] [facility] 08/06/2024 14:18:43 Date Recorded Body height Body mass index (BMI) Body weight Provider Name and Address Organization Details Last Updated DateTime 08/27/2024 167.64 cm 19.4 kg/m2 25235.08 g Kike Casanova [place] [facility] 08/27/2024 09:35:59 Date Recorded Body height Body mass index (BMI) Body weight Provider Name and Address Organization Details Last Updated DateTime 12/30/2024 167.64 cm 20.3 kg/m2 69824.64 g Renetta Moulton [place] [facility] 12/30/2024 10:12:43 Social History Question Answer Notes LastModified by Organizat ion Details LastModified Time Tobacco Smoking Status Never Smoker Rizwan salas [place] [facility] 03/18/2024 11:22:25 What Is Your Level Of Alcohol Consumption? None [email or web address] Information not available 03/18/2024 Do You Use Any Illicit Or Recreational Drugs? No [email or web address] Information not available 03/18/2024 Do You Or Have You Ever Used Any Other Forms Of Tobacco Or Nicotine? No [email or web address] Information not available 03/18/2024 Sex: Unknown Functional [...] Note 512 LAVONNE RODRIGUEZ MD [facility] [address] [address] 03/18/2024 11:13:52 03/18/2024 12:02:33 Tinnitus of left ear 4636535200 106 H93.12 Hearing within normal limits AU.Type A tympanogra ms AU. Migraine 02114347 G43.90 9 Pharyngeal dysphagia 223 3598812 9105 R13.13 She notes a sensation of randomly having a cough with saliva or fluids. Transnasal fiberoptic laryngosco py shows normal vocal fold mobility and no masses Abnormal a uditory perception 22280971 H93.292 Patient presents with sensation of fullness, [...] about fluid in the ear Neck pain 72041800 M54.2 6669 LION HEREDIA MD [facility] [address] [address] 05/07/2024 13:53:44 05/07/2024 14:43:55 Pain of left temporomandibular joint 7846653053 8122490 M26.622 Abnormal a uditory perception 64901700 H93.292 Neck pain 23265297 M54.2 30118 LION HEREDIA MD [facility] [address] [address] 08/06/2024 13:30:04 08/06/2024 17:05:24 Abnormal auditory perception 46751910 H93.299 Audiologic al evaluation results: Right ear: [...] Cou ld not maintain a hermetic seal}} 13917 LAVONNE RODRIGUEZ MD [facility] [address] [address] 08/27/2024 09:33:34 08/27/2024 10:32:43 Abnormal auditory perception 65716639 H93.299 Tympanomet ry: Right Ear:{{Type A* Type [...] maintain a hermetic seal}} Posterior rhinorrhea 758 99855 R09.82 Allergic rhinitis 007145 04 J30.9 91395 MP SRIVASTAVA MD [facility] [address] [address] 12/30/2024 10:02:27 12/30/2024 10:38:00 Allergic rhinitis 39387590 J30.89 Chronic pharyngitis 1400 04 J31.2 Pain of le ft temporomandibular joint 2604542081 5077409 M26.622 Tinnitus of left ear 437 9806029 106 H93.12 41395 BERTIN PAIGE RN Allergy [address] [place] [address] 01/24/2025 10:02:49 01/24/2025 10:54:21 Perennial allergic rhinitis 487162759 J30.89 Health Concerns Section Related Observation LastModified by Organization Detai ls LastModified Time None Recorded Concern Status LastModified by Organization Details LastModified Time None Recorded Advance Directives Directive None Recorded Payers Encounter Date Sequence Insurance Name Policy Number Policy [place]ano Covered Member ID [place]ano Member ID Guarantor Name 05/07/2024 1 [facility] (MEDICAID REPLACEMENT - HMO) [place] Lismarie Dykes [id number] Lismarie Dykes 08/06/2024 1 [facility] (MEDICAID REPLACEMENT - HMO) [place] Lismarie Dykes [id number] Lismarie Dykes 08/27/2024 1 [facility] (MEDICAID REPLACEMENT - HMO) [facility] Lismarie Dykes [id number] Lismarie Dykes 12/30/2024 1 [facility] (MEDICAID REPLACEMENT - HMO) [place] Lismarie Dykes [id number] Lismarie Dykes 01/24/2025 1 [facility] (MEDICAID REPLACEMENT - HMO) [place] Lismarie Dykes [id number] Lismarie Dykes Notes Date Note Type Note Provider Name and Address Organization Details Recorded Time 05/07/2024 text/html Patient on Dr. Sim recently [...] choking on her saliva LION HEREDIA MD [address] [place] [address], [id number], [place] - [facility] 05/07/2024 14:27:55 08/06/2024 text/html 33-year-old fema [...] occasional room-spinning dizziness. LION HEREDIA MD [address] [facility],[address], [address], [facility] 08/06/2024 17:16:04 08/27/2024 text/html 33-year-old fema [...] fluid on exam. She was told by Nemesio Mendez PA-C to present when she feels like she has an infection so that we can examine her. She additionally reports increased postnasal drip. She has been taking Zyrtec daily. LAVONNE SIM MD [facility],[address], [address], [facility] 08/30/2024 12:02:43 12/30/2024 text/html 34-year-old fema le with chronic regional pain syndrome and left TMJ presents for allergy test results. She reports her left sided ear pain and pressure are stable. Allergy testing demonstrated moderate sensitivity to dog dander, birch tree, and oak tree. Patient reports her allergy symptoms do not improve with [id number] Zyrtec and Flonase, which she has been taking daily for 7 months. MP SRIVASTAVA MD [address] [facility],[address], [address], [facility] 12/31/2024 08:08:47 OBGyn Episode No OBEpisode recorded.
== END ==
LOC: HO.CARD 13:12
PROVIDERS: Visit Provider Internal Medicine Cardiovascular Disease
DX: R42 Dizziness and giddiness (principal)
CPT/HCPCS: 93246; 93306

== ENCOUNTER → 2025-02-04 13:15 | Outpatient (BNV) | payer OTHER, SELFPAY | PROVIDERS: Visit Provider Internal Medicine | DX: R94.31 Abnormal electrocardiogram [ECG] [EKG] (principal) | CPT/HCPCS: 93306 ==

== ENCOUNTER 2025-02-22 13:25 | Outpatient (AMB) | payer OTHER, SELFPAY ==
--- NOTE | 2025-02-22 13:30 | MHC.OFFVIS ---
Vital Signs 02/22/25 13:33 Height 5 ft 8 in Weight 128 lb BMI 19.5 Pulse 120 H Pulse Source Pulse Oximeter Intake Visit Reasons: Botox(Per Cata) Intake Note: patient presents for botox injection. pharmacy supplied Allergies ibuprofen [From Motrin] Allergy (Severe, Verified 02/22/25 13:33) Unknown metoclopramide [From REGLAN] Allergy (Mild, Verified 02/22/25 13:33) ANXIETY Penicillins [PENICILLINS] Allergy (Unknown, Verified 02/22/25 13:33) RASH Medication List - Last Reconciled 02/22/25 by Beatris Ramsay MD albuterol sulfate mg inhalation baclofen 10 mg PO TID PRN cetirizine 10 mg PO DAILY cholecalciferol (vitamin D3) 1,250 mcg PO QWEEK 12 days cyanocobalamin (vitamin B-12) 500 mcg PO DAILY 30 days docusate sodium 100 mg PO BID fluticasone propionate 50 mcg/actuation 1 spray intranasal BID lidocaine 5% 1 patch topical DAILY lorazepam 1 mg PO BID magnesium oxide 400 mg PO BEDTIME 30 days naratriptan take 1 tab at onset of headache; if no relief may repeat 1 tab after at least 4 hrs; max = 2 tabs/24 hrs PO 30 days nortriptyline 10 mg PO BID 30 days onabotulinumtoxinA (Botox) 200 units IM ONCE 12 weeks ondansetron HCl 8 mg PO DAILY pantoprazole mg PO DAILY polyethylene glycol 3350 (Gavilax) grams PO pregabalin 200 mg PO TID 30 days riboflavin (vitamin B2) 400 mg PO DAILY 30 days rimegepant (Nurtec ODT) 75 mg PO ONCE PRN 30 days MDD 1 tab sennosides (senna) 8.6 mg PO DAILY zolpidem 5 mg PO BEDTIME PRN HPI Comments Details: ? 34y/o female comes for treatment of migraines with botox. ??? Most frequent reported adverse reactions following injection of botox for chronic migraine include neck pain (9%), headache(5%), eyelid ptosis(4%), migraine(4%), muscular weakness(4%), musculuskeletal stiffness(4%), bronchitis(3%), injection site pain (3%), musculoskeletal pain(3%), myalgia(3%), facial paresis(2%), HTN(2%) and muscle spasms(2%) were discussed in detail. ??? Botulinum toxin typeA 200units Lot no [id number] expiration February 2027 was diluted with 4 cc of normal saline . ??? Muscles injected- ??? Frontalis 4 sites ??? Procerus 1 site ??? Button Sewer- 2 sites ??? Temporalis- 8 sites ??? Occipitalis- 6 sites ??? Cervical paraspinals- 4 sites ??? Trapezius- 6 sites- 10 units each ??? 5 units each in 31 site Gabe zygomaticus 5 units each ??? Total use- 195units ??? 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 Physical Exam Vital Signs: Last Vital Signs Pulse 120 H 02/22/25 13:33 BMI result Body Mass Index 19.5 Const General: cooperative and no acute distress Orientation/consciousness: patient oriented x3 Resp Effort & Inspection: normal respiratory effort and able to speak in complete sentences Neuro General: patient oriented x3 Cognition (Neuro): normal cognition Office Procedures Botulinum toxin Injection 67154 - Migraine Procedure code (CPT) selection complete Office Meds onabotulinumtoxinA 200 unit solution for injection Performing Provider: Beatris Ramsay MD Performing Location: [facility] Administered by: Beatris Ramsay MD on 02/22/25 14:08 Dose Route Admin Location Dispensed Lot Number Expiration Date [facility] Well Logging Operator [employer]ud [employer] 195 unit subcut 200 units [id number] ALLERGAN/BOTOX Comments: see HPI Assessment & Plan Assessment & Plan (1) Chronic migraine without aura: Code(s): G43.709 - Chronic migraine without aura, not intractable, without status migrainosus Category: Medical Qualifiers: Status migrainosus presence: without status migrainosus Intractability: intractable Qualified Code(s): G43.719 - Chronic migraine without aura, intractable, without status migrainosus Plan Patient tolerated the procedure well she will call with any side effects Orders: Orders AMB Botulinum toxin Injection Today G43.719 - Chronic migraine without aura, intractable, without status migrainosus Medications: New onabotulinumtoxinA 200 units subcut ONCE 1 ea 0RF migraine G43.719 - Chronic migraine without aura, intractable, without status migrainosus Coding Level of Care Code Est Pt Level 1 (86454) Diagnoses Intractable chronic migraine without aura and without status migrainosus G43.719 Status migrainosus presence: without status migrainosus Intractability: intractable CPT Codes Botox Injection - Botox 3: 39208 - Migraine ([id number])
[2025-02-22 13:33] VITALS: PULSE 120; BMI 19.5
--- OUTSIDE RECORDS SUMMARY | 2025-02-22 15:53 | XMS_ITS | Clinical Summary ---
Author Organization [facility] Address [address] [place] [address] Care Team Providers Care Judge'S Clerk Name Role Phone Ho Araya MD Primary Care Provider [phone] Allergies Active Allergy Reactions Criticality Noted Date [...] age to complete this topic Care Teams Judge'S Clerk Relationship Specialty Start Date End Date Ho Araya MD PCP - General Internal Medicine 05/19/24
--- OUTSIDE RECORDS SUMMARY | 2025-02-22 15:53 | XMS_ITS | Encounter Summary ---
Author Organization [facility] Address [address] [place] [address] Care Team Providers Care Pumping Station Engineer Name Role Phone Ho Araya MD Primary Care Provider Encounter Details Date Type Department Care Team (Late Contact Info) Description 09/24/2024 Lab Requisition [facility] - Main Lab [address] [facility] [place] [phone] Sergio Gross PA [address] [facility] [address] [place] [phone] Other microscopic hematuria Social History Tobacco Use [...] Department Care Team (Late Contact Info) Description 04/05/2025 1:45 PM EDT Appointment [facility] Xray [address] [place] [phone] 05/02/2025 10:30 AM EDT Office Visit [facility] Hematology Oncology [address] [place] [phone] Clotilde Lux, [address] [place] [address] documented as of this encounter Procedures Procedure [...] clinical and pathological findings. 10/12/2024 9:06 AM [facility] Addendum electronically signed by Gaetano Fernando MD on 10/12/2024 at 9:06 AM Final Diagnosis Urine, Voided: Negative for high grade urothelial carcinoma. Note: UroVysion testing to follow. 10/12/2024 9:06 AM [facility] Clinical Information [id number], Urine cyto/urine FISH. 10/12/2024 9:06 AM [facility] Gross Description A. Urine, Voided, : [id number] recd 1 TP cyto 1 TP fish. 10/12/2024 9:06 AM [facility] Disclaimer Unless otherwise specified, all tissue is 10% NB formalin fixed and paraffin embedded. 10/12/2024 9:06 AM [facility] Tissue Urine specimen from urethra / Unknown 09/21/2024 09/24/2024 1:47 PM EST us Sergio SHIRLEY LAB PATHOLOGY ORDERABLES Edite d Result - Final [facility] [address] [place] [address], documented in this encounter Visit Diagnoses Diagnosis Other microscopic hematuria documented in this encounter Care Teams Pumping Station Engineer Relationship Specialty Start Date End Date Ho Araya MD [address] [place] [address] PCP - General Internal Medicine 07/25/15 documented as of this encounter
--- OUTSIDE RECORDS SUMMARY | 2025-02-22 15:53 | XMS_ITS | Clinical Summary ---
Author Organization [facility] Address [address] [place] [address] Phone Care Team Providers Care Electronic Heat Seal Operator Name Role Phone Ho Araya MD Primary Care Provider [phone] Allergies Active Allergy Reactions Criticality Noted Date [...] times daily as needed (Thigh pain). Active promethazine (PHENERGAN) 12.5 mg tablet Take [...] bottle twice daily for weight loss / [place] Flavored 60 each Active lidocaine (XYLOCAINE) 5 [...] COUGH OR WHEEZING. 18 each 1 Active dicyclomine (BENTYL) 10 mg capsule TAKE 1 CAP BY MOUTH FOUR TIMES A DAY BEFORE MEALS AND BEDTIME. USE NEEDED FOR ABDOMINAL CRAMPING 360 capsule 1 Active albuterol HFA (PROVENTIL HFA;VENTOLIN HFA) 108 (90 Base) MCG/ACT inhaler Sig - Route: Take 2 Puffs by mouth every 4 hours as needed for Cough or Wheezing. - Oral Sent to pharmacy as: Albuterol Sulfate HFA 108 (90 Base) MCG/ACT Inhalation Aerosol Solution (Ventolin HFA) 2024 Discontinued dicyclomine (BENTYL) 10 mg capsule 024 2024 Discontinued linaCLOtide (Linzess) 145 mcg capsule Take 1 tablet by mouth 1 (one) time each day. 024 2024 Discontinued Active Problems Problem Noted Date Diagnosed Date Complex regional pain syndrome type 1 08/12/2024 Vitamin D deficiency 01/21/2024 Seasonal allergies 05/30/2022 Anxiety and depression 10/22/2021 Cervical paraspinous muscle spasm 10/22/2021 Fibromyalgia 11/17/2020 Migraine 07/03/2018 Overview (08/12/2024): Seen at [facility], initial visit 09/26/2020. Nerve blocks and trigger point injections done 10/04/2020 and 01/04/2021. Acne vulgaris 08/21/2016 Asthma 01/09/2012 Encounters Date Type Department Care Team Description 01/24/2025 2:15 PM EDT Office Visit Orthopedic Surgery [facility] [address] [address] Diaz Galeana, DPM Fibromyalgia (Primary Dx); Complex regional pain syndrome type 1, affecting unspecified site 12/31/[address] [facility] [address] [facility] [address] [place] [phone] Nena Zepeda from Last 3 Months Immunizations Name Administration Dates Next Due Influenza Quadravalent, MDCK , 0.5ml, preservative free (Flucelvax) 6mo and older 10/22/2021 Influenza trivalent, with pr eservative (Fluzone; Afluria) 6mo and older 08/21/2016 Surgical History Surgery Date Site/Laterality Comments BREAST SURGERY PROCEDURE:TRANSUMBILICAL AUGMENTATION MAMMAPLASTY OVARIAN CYST REMOVAL PROCEDURE:OVARIAN CYST REMOVAL OVARIAN CYST REMOVAL N/A PROCEDURE: [place] OVARIAN CYSTECTOMY UNI/BI BREAST SURGERY PROCEDURE: [place] BREAST AUGMENTATION WITH IMPLANT Medical History Medical History Date Comments Asthma DX:Asthma Migraines 07/03/2018 DX:Migraines; CO MMENT: Seen at [facility], initial visit 09/26/2020. Nerve [...] Care Team (Late st Contact Info) Description 04/05/2025 1:[address] [facility] Xray [address] [place] [address] 05/02/2025 10:30 AM EDT Office Visit [facility] Hematology Oncology [address] [place] [phone] Clotilde Lux, [address] [place] [address] Health Maintenance Due Date Last Done Comments Hepatitis B Vaccines (1 of 3 - 19+ 3-dose series) 2011 Pneumococcal Vaccine: Pediatrics (0 to 5 Years) and At-Risk Patients (6 to 64 Years) (1 of 2 - PCV) 2011 Cervical Cancer Screening: Pap Smear 2013 HIV Screening 10/05/2022 Social Influencers of Health Screening 10/05/2022 COVID-19 Vaccine ( - season) 2024 Depression Screening 05/12/2025 05/12/2024 Influenza [...] age to complete this topic Meningococcal B Vaccine Aged Out No l onger eligible based on patient's age to complete this topic RSV Immunization Patients Under 20 months Aged Out No longer eligible based on patient's age to complete this topic Procedures Procedure Name Priority Date/Time Associated Diagnosis Comments HM DIABETES EYE EXAM 02/15/2025 EXTERNAL CLINICAL LAB 01/17/2025 C-REACTIVE PROTEIN Routine 12/29/2024 11 :47 AM EST EXTERNAL MRI REPORT 12/27/2024 EXTERNAL CLINICAL LAB 12/23/2024 EXTERNAL CLINICAL LAB 12/20/2024 EXTERNAL CLINICAL LAB 12/16/2024 DEPRESSION SCREENING Routine 05/12/2024 LIPID PANEL Routine 05/12/2024 HEPATITIS C SCREENING Routine 11/17/2020 from Last 3 Months or Most Recently Relevant to Health Maintenance Results * Diabetes Eye Exam (02/15/2025) Result [facility] Provider [facility] HEALTH MAINTENANCE Final Result * External clinical lab (01/17/2025) Only the most recent of4 resultswithin the time period is included. Result [facility] LAB BLOOD ORDERABLES Fin al Result * C-reactive protein (12/29/2024 11:47 AM EST) Blood Venous blood specimen / Unknown Result [facility] Rojelio Oliver MD LAB BLOOD ORDERABLES Final Result * External MRI Report (12/27/2024) Anatomical Region Laterality Modality Magnetic Resonan ce Result [facility] IMG MRI PROCEDURES Final Result * Depression Screening (05/12/2024) Depression Screening abstracted Result [facility] Kimi Dockery MD HEALTH MAINTENANCE Final Result * Lipid panel (05/12/2024) LDL/HDL Ratio 3 0 - 4 Triglycerides 56 0 - 150 mg/dL Cholesterol 173 0 - 200 mg/dL HDL 68 >=40 mg/dL LDL Cholesterol 94 0 - 100 mg/dL Blood Venous blood specimen / Unknown Result [facility] Kimi Dockery MD LAB BLOOD ORDERABLES Katy l Result * Hepatitis C Screening (11/17/2020) Pathologist [facility] Hepatitis C Screening abstracted us Historical Provider HEALTH MAINTENANCE Final Result from Last 3 Months or Most Recently Relevant to Health Maintenance Insurance [facility] [employer] Care Teams Electronic Heat Seal Operator Relationship Specialty Start Date End Date Ho Araya MD [address] [place] [id number] PCP - General Internal Medicine 07/25/15
--- OUTSIDE RECORDS SUMMARY | 2025-02-22 15:53 | XMS_ITS | Data Portability ---
Author Organization [facility], [address] Address [address] [place] [address] Assessment No assessment recorded. Plan of Treatment Reminders Order Date Submit Date Provider Last Modified By Organization Details Last Modified Time Details Appointments None recorded. Lab rapid strep group A, throat 2022 023 [email or web address] 5 [address], [address] [place], [address], 3 13:02:13 streptococc us group A, culture, throat 2022 023 [email or web address] [facility], [address] [place] [address], [place], [address], 3 13:11:10 Referral None recorded. Procedures None recorded. Surgeries None recorded. Imaging None recorded. Medication Orders prednisone 20 mg tablet 2023 024 [facility] #1130, [phone] [place], [address], 4 09:11:00 cefdinir 300 mg capsule 2023 024 [facility] #1130, [phone] [place], [address], 4 09:10:58 Ciprodex 0.3 %-0.1 % ear drops,suspe nsion 2023 024 [facility] #1130, [phone] [place], [address], 4 08:57:12 Zithromax Z-Kory 250 mg tablet 2023 024 [facility] [phone] [place], [address], 4 09:49:54 Polytrim 10,000 unit-1 mg/mL eye drops 2022 023 [facility] [phone] [place], [address], 3 10:38:33 Patient TargetsNo targets recorded. Patient Instructions Encounter Date Encounter Id Patient Instructions Last Modified By Organization Details Last Modified Time 12/31/2022 [id number] pinkeye: care instructions [email or web address] Not available 12/31/2022 13:04:53 sore throat: car e instructions [email or web address] Not available 12/31/2022 13:02:13 Use the eye [...] Emergency Medical evaluation for any worsening symptoms. [email or web address] Not available 12/31/2022 13:07:42 01/07/2023 [id number] sore throat: car e instructions Not available 01/07/2023 11:57:17 04/18/2024 [id number] Your ear does no t currently look [...] Ricky dorsey Not available 04/18/2024 09:22:15 06/19/2024 [id number] middle ear fluid : care instructions [email or web address] [...] p A). (CLSI ) Not Available [facility] ([facility]) [address] [facility], [place], [address], 01/02/2023 12:06:18 12/31/19 23 12/31/2022 rapid strep group A, throa t Unknown Analyte Normal = Negati ve Not Available [address] [place], [address], 12/31/2022 11:53:41 12/31/19 23 12/31/2022 rapid strep group A, throa t Unknown Analyte negati ve Not Available [address] [place], [address], 12/31/2022 11:53:41 Result Notes None recorded. Problems Name Problem SNOMED Code Status Onset Date Resolution Date Notes Provider Name and Address Organization Details Recorded Time Otitis externa of left ear 7136581285521 109 Active 2023 Deacon Evans, DO [address] , [place], [address], [place] - [facility] 4 09:49:06 Acute left otitis media 197532608 Active 2023 Deacon Evans, DO [address] , [place], [address], [place] - [facility] 4 11:56:45 Acute serous otitis media of bilateral ears 6235389008871 107 Active 2023 Boyd Dodge, EDUCATION SUPERVISOR [address] , [place], [address], [place] - [facility] 4 09:08:47 Bilateral earache 662114419 Active 2023 Boyd Dodge, EDUCATION SUPERVISOR [address] , [place], [address], [place] - [facility] 4 09:09:15 Fibromyalgi a 145539744 Active 2022 TONYA DESMITH null, PA - [facility] 3 11:56:52 Migraine 33064154 Active 2022 TONYA DESMITH null, PA - [...] Name and Address Organization Details Recorded Time 643331 Product containin g penicilli n (product) medicatio n rash Not available Not available 12/31/2022 84021 8001 SNOMED TONYA DESMDELPHINE null, PA - [facility] 3 11:54:53 391302 Reglan medicatio n itching Not available Not [...] Details Last Updated DateTime 4 167.64 cm 75018.4 2 g 98 % 98 % 7 [...] DateTime 4 167.64 cm 7 97.1 [degF] 61904.0 1 g 98 % 98 % 90 /min 96 mm[Hg] 65 mm[Hg] Karla Kilgore PA - [facility] 4 08:38:15 Date Recorded Body height Body weight Body mass index (BMI) Heart rate Respiratory rate Body temperature Systolic blood pressure Diastolic blood pressure Provider Name and Address Organization Details Last Updated DateTime 4 167.64 cm 17453.6 g 21.1 kg/m2 68 /min 18 /min [...] Updated DateTime 3 168.91 cm 22.3 kg/m2 93056.9 3 g 5 99 % 99 % 104 /min 20 /min 98.2 [degF] 104 mm[Hg] 70 mm[Hg] TONYA MICHELLE PA - [facility] 3 12:00:10 Date Recorded Body height Body mass index (BMI) Body weight Pain severity - 0-10 verbal numeric rating [Score] - Reported Provider Name and Address Organization Details Last Updated DateTime 01/07/2023 168.91 cm 22.3 kg/m2 56681.93 g 7 TONYA MICHELLE [facility] - [facility] [...] Had A Flu Shot This Season? No [email or web address] Information not available 04/18/2024 What Is Your Water Source? City Information not available 06/19/2024 What Is Your Heat Source? Other Information not available 06/19/2024 Have You Had Direct Contact, Or Contact During Intimacy, With Monkeypox Rash, Scabs, Or Body Fluids From A Person With Monkeypox? No [email or web address] Information not available 04/03/2024 What Was The Date Of Your Most Recent Tobacco Screening? 04/18/2024 [email or web address] Information not available 04/18/2024 Are You Passively [...] SNOMED-CT Code Diagnosis ICD10 Code Diagnosis Note [id number] [address] [place] [address] 03/10/2019 15:42:30 03/10/2019 17:32:00 [id number] [address] [place] [address] 01/26/2022 10:49:30 01/26/2022 12:09:11 [id number] [address] [place] [address] 07/21/2021 11:45:18 07/21/2021 15:15:57 [id number] [address] [place] [address] 12/26/2019 08:04:10 12/26/2019 08:36:06 [id number] [address] [place] [address] 06/11/2022 18:25:04 06/11/2022 19:35:13 [id number] [place] [address] [place] [address] 12/31/2022 11:33:22 12/31/2022 13:09:21 Acute pharyngitis 368714642 J02.9 Acute conj unctivitis of left eye 8224067705 73385 H10.32 [id number] Alessia Mead [facility] [address] [place] [address] 01/07/2023 10:17:20 01/07/2023 12:01:17 Left without being seen 8014178135 9102 Z53.21 [id number] Deacon Evans DO [address] [place] [address] 04/03/2024 09:21:52 04/03/2024 10:13:05 Otitis externa of left ear 3023597441 868780 H60.92 See pcp in 3-4 days or return to urgent care in 3-4 days if cant be seen by pcp for follow up. Go to ER if anything worsens. Otc tylenol as needed for pain. Symptomati c treatment. All of patients questions have been answered. Patient has understand ing and agreement of all of this. Acute left otitis media 790774409 H66.92 pt is rx zpak. sx tx. slight erythema to left tm [id number] [facility] [address] [facility] [address] [place] [address] 04/18/2024 08:23:00 04/18/2024 09:23:34 Otalgia of left ear 9793372292 H92.02 [id number] Boyd Dodge NP [address] [facility] [address] [place] [address] 06/19/2024 08:40:12 06/19/2024 09:15:56 Acute serous otitis media of bilateral ears 9827598824 469245 H65.03 You have been diagnosed with a [...] antibiotic resistance . Thank you for using [facility] today - and don't hesitate to contact our office if you have any concerns or questions. Bilateral earache 426619 003 H92.03 Health Concerns Section Related Observation LastModified by Organization Detai ls LastModified Time None Recorded Concern Status LastModified by Organization Details LastModified Time None Recorded Advance Directives Directive None Recorded Payers Encounter Date Sequence Insurance Name Policy Number Policy [place] Covered Member ID [place] Member ID Guarantor Name 12/31/2022 1 [facility] PLAN (MEDICAID HMO) [employer] Lismarie Dykes [id number] Lismarie Dykes 01/07/2023 1 [facility] PLAN (MEDICAID HMO) [employer] Lismarie Dykes [id number] Lismarie Dykes 04/03/2024 1 [facility] PLAN (MEDICAID HMO) [employer] Lismarie Dykes [id number] Lismarie Dykes 04/18/2024 1 [facility] PLAN (MEDICAID HMO) [employer] Lismarie Dykes [id number] Lismarie Dykes 06/19/2024 1 [facility] PLAN (MEDICAID HMO) [employer] Lismarie Dykes [id number] Lismarie Dykes Notes Date Note Type Note [...] Alessia Mead MD [address] [place], [address], [place] - [facility] 01/01/2023 13:02:57 04/03/20 24 text/htm l hx of multiple ear infections in past. follows ent for this. has now left ear pain for the past 4 days. getting worse. no trauma. no fevers. no hearing loss. other uri sx. no chance she is pregant or nursing. Deacon Evans DO [address] [place], [address], [place] - [facility] 04/03/2024 11:57:32 04/18/20 [...] ciprodex [facility] [address] [place], [address], [place] - [facility] 04/18/2024 09:22:30 06/19/20 [...] Dodge NP [address] [place], [address], [place] - [facility] 06/19/2024 09:11:50 OBGyn Episode No OBEpisode recorded.
--- OUTSIDE RECORDS SUMMARY | 2025-02-22 15:53 | XMS_ITS | Clinical Summary ---
Author Organization [facility] Address [address] [place] [address] Care Team Providers Care Limited Radiology Technician Name Role Phone Wendi Toney MD Primary Care Provider Social History Tobacco Use Types Packs/Day Years Used Date Smoking Tobacco: Never Assessed Comments Unknown Sex and Gender Information Value Date Recorded Sex Assigned at Not on file Legal Sex Female 10:35 AM EDT Gender Identity Not on file Sexual Orientation [...] on patient's age to complete this topic Insurance COMMERCIAL on file Care Teams Limited Radiology Technician Relationship Specialty Start Date End Date Wendi Toney MD [address] [place] [address] PCP - General Internal Medicine 08/31/20
--- OUTSIDE RECORDS SUMMARY | 2025-02-22 15:54 | XMS_ITS | Data Portability ---
Author Organization [place] [facility], Allergy Address [address] [address] Care Team Providers Care Electroplating Sales Representative Name Role Phone MCKENZIEMARLYN PANCHAL Primary Care Provider [phone] Assessment Encounter Date Assessment Date Assessment LastModified [...] 12/30/2024 10:55:26 01/24/2025 01/24/2025 Visit With: Wayne Pagie RN Use of Antihistamines: No If yes: [...] 025 [facility]/Pharmacy #[id number], [phone] [place], [address], 12/30/2024 10:26:56 Patient TargetsNo targets recorded. Patient [...] 00 Very High Not Available [facility] ([facility]) [address] [place], [address], 10/29/2024 23:16:49 10/28/20 24 10/29/2024 ALLER GENS, ZONE 1 F028-XtR D pteronyssinu s 0.16 kU/L class 0/I abnormal Not Available [facility] ([facility]) [address] [place], [address], 10/29/2024 23:16:49 10/28/20 24 10/29/2024 ALLER GENS, ZONE 1 X327-BtF D farinae 0.12 kU/L class 0/I abnormal Not Available [facility] ([facility]) [address] [place], [address], 10/29/2024 23:16:49 10/28/20 24 10/29/2024 ALLER GENS, ZONE 1 Q051-FsR CAT dander 0.12 kU/L class 0/I abnormal Not Available [facility] ([facility]) [address] [place], [address], 10/29/2024 23:16:49 10/28/20 24 10/29/2024 ALLER GENS, ZONE 1 V069-BrM dog dander 5.14 kU/L class IV abnormal Not Available [facility] ([facility]) [address] [place], [address], 10/29/2024 23:16:49 10/28/20 24 10/29/2024 ALLER GENS, ZONE 1 s696-PcR bermuda grass <0.10 kU/L class 0 Not Available [facility] ([facility]) [address] [place], [address], 10/29/2024 23:16:49 10/28/20 24 10/29/2024 ALLER GENS, ZONE 1 z042-LnY bluegrass, [place] <0.10 kU/L class 0 Not Available [facility] ([facility]) [address] [place], [address], 10/29/2024 23:16:49 10/28/20 24 10/29/2024 ALLER GENS, ZONE 1 a625-FbJ bahia grass <0.10 kU/L class 0 Not Available [facility] ([facility]) [address] [place], [address], 10/29/2024 23:16:49 10/28/20 24 10/29/2024 ALLER GENS, ZONE 1 X793-DjG cockroach, south korean 0.10 kU/L class 0/I abnormal Not Available [facility] ([facility]) [address] [place], [address], 10/29/2024 23:16:49 10/28/20 24 10/29/2024 ALLER GENS, ZONE 1 B022-VcV penicillium chrysogen <0.10 kU/L class 0 Not Available [facility] ([facility]) [address] [place], [address], 10/29/2024 23:16:49 10/28/20 24 10/29/2024 ALLER GENS, ZONE 1 N955-XqA cladosporium herbarum <0.10 kU/L class 0 Not Available [facility] ([facility]) [address] [place], [address], 10/29/2024 23:16:49 10/28/20 24 10/29/2024 ALLER GENS, ZONE 1 B515-YxD aspergillus fumigatus <0.10 kU/L class 0 Not Available [facility] ([facility]) [address] [place], [address], 10/29/2024 23:16:49 10/28/20 24 10/29/2024 ALLER GENS, ZONE 1 M418-MvC mucor racemosus <0.10 kU/L class 0 Not Available [facility] ([facility]) [address] [place], [address], 10/29/2024 23:16:49 10/28/20 24 10/29/2024 ALLER GENS, ZONE 1 N881-BhT alternaria alternata <0.10 kU/L class 0 Not Available [facility] ([facility]) [address] [place], [address], 10/29/2024 23:16:49 10/28/20 24 10/29/2024 ALLER GENS, ZONE 1 Y230-LsX stemphylium herbarum <0.10 kU/L class 0 Not Available [facility] ([facility]) [address] [place], [address], 10/29/2024 23:16:49 10/28/20 24 10/29/2024 ALLER GENS, ZONE 1 C074-HcP common silver birch 3.39 kU/L class III abnormal Not Available [facility] ([facility]) [address] [place], [address], 10/29/2024 23:16:49 10/28/20 24 10/29/2024 ALLER GENS, ZONE 1 C582-IpI oak, white 10.60 kU/L class IV abnormal Not Available [facility] ([facility]) [address] [place], [address], 10/29/2024 23:16:49 10/28/20 24 10/29/2024 ALLER GENS, ZONE 1 X295-BhD elm, south korean <0.10 kU/L class 0 Not Available [facility] ([facility]) [address] [place], [address], 10/29/2024 23:16:49 10/28/20 24 10/29/2024 ALLER GENS, ZONE 1 O892-CrP samira, white <0.10 kU/L class 0 Not Available [facility] ([facility]) [address] [place], [address], 10/29/2024 23:16:49 10/28/20 24 10/29/2024 ALLER GENS, ZONE 1 J277-XdD maple/box elder 0.23 kU/L class 0/I abnormal Not Available [facility] ([facility]) [address] [facility], [place], [address], 10/29/2024 23:16:49 10/28/20 24 10/29/2024 ALLER GENS, ZONE 1 K750-AgN hazelnut tree 1.25 kU/L class II abnormal Not Available [facility] ([facility]) [address] [facility], [place], [address], 10/29/2024 23:16:49 10/28/20 24 10/29/2024 ALLER GENS, ZONE 1 Q605-SaK hickory, white 0.13 kU/L class 0/I abnormal Not Available [facility] ([facility]) [address] [place], [address], 10/29/2024 23:16:49 10/28/20 24 10/29/2024 ALLER GENS, ZONE 1 G366-XlR white mulberry <0.10 kU/L class 0 Not Available [facility] ([facility]) [address] [place], [address], 10/29/2024 23:16:49 10/28/20 24 10/29/2024 ALLER GENS, ZONE 1 V705-QvX cedar, mountain <0.10 kU/L class 0 Not Available [facility] ([facility]) [address] [place], [address], 10/29/2024 23:16:49 10/28/20 24 10/29/2024 ALLER GENS, ZONE 1 E935-KuO ragweed, short <0.10 kU/L class 0 Not Available [facility] ([facility]) [address] [place], [address], 10/29/2024 23:16:49 10/28/20 24 10/29/2024 ALLER GENS, ZONE 1 E386-YuM mugwort <0.10 kU/L class 0 Not Available [facility] ([facility]) [address] [place], [address], 10/29/2024 23:16:49 10/28/20 24 10/29/2024 ALLER GENS, ZONE 1 F351-ZqD plantain, malay <0.10 kU/L class 0 Not Available [facility] ([facility]) [address] [place], [address], 10/29/2024 23:16:49 10/28/20 24 10/29/2024 ALLER GENS, ZONE 1 G294-DbP pigweed, common <0.10 kU/L class 0 Not Available [facility] ([facility]) [address] [place], [address], 10/29/2024 23:16:49 10/28/20 24 10/29/2024 ALLER GENS, ZONE 1 P549-OfF sheep sorrel <0.10 kU/L class 0 Not Available [facility] ([facility]) [address] [place], [address], 10/29/2024 23:16:49 10/28/20 24 10/29/2024 ALLER GENS, ZONE 1 L034-UpO nettle <0.10 kU/L class 0 Not Available [facility] ([facility]) [address] [place], [address], 10/29/2024 23:16:49 10/28/20 24 10/29/2024 FOOD ALLER GY PROFI LE E710-PoN egg white 0.21 kU/L class 0/I abnormal Not Available [facility] ([facility]) [address] [place], [address], 10/29/2024 23:16:50 10/28/20 24 10/29/2024 FOOD ALLER GY PROFI LE W966-UgC peanut <0.10 kU/L class 0 Not Available [facility] ([facility]) [address] [place], [address], 10/29/2024 23:16:50 10/28/20 24 10/29/2024 FOOD ALLER GY PROFI LE P216-EqK soybean <0.10 kU/L class 0 Not Available [facility] ([facility]) [address] [place], [address], 10/29/2024 23:16:50 10/28/20 24 10/29/2024 FOOD ALLER GY PROFI LE Y477-KqX milk 0.66 kU/L class II abnormal Not Available [facility] ([facility]) [address] [place], [address], 10/29/2024 23:16:50 10/28/20 24 10/29/2024 FOOD ALLER GY PROFI LE L409-IoO clam <0.10 kU/L class 0 Not Available [facility] ([facility]) [address] [place], [address], 10/29/2024 23:16:50 10/28/20 24 10/29/2024 FOOD ALLER GY PROFI LE X749-LqP shrimp 0.10 kU/L class 0/I abnormal Not Available [facility] ([facility]) [address] [place], [address], 10/29/2024 23:16:50 10/28/20 24 10/29/2024 FOOD ALLER GY PROFI LE U325-OzL walnut <0.10 kU/L class 0 Not Available [facility] ([facility]) [address] [place], [address], 10/29/2024 23:16:50 10/28/20 24 10/29/2024 FOOD ALLER GY PROFI LE X425-AlK codfish <0.10 kU/L class 0 Not Available [facility] ([facility]) [address] [place], [address], 10/29/2024 23:16:50 10/28/20 24 10/29/2024 FOOD ALLER GY PROFI LE L175-OnE scallop <0.10 kU/L class 0 Not Available [facility] ([facility]) [address] [facility], [place], [address], 10/29/2024 23:16:50 10/28/20 24 10/29/2024 FOOD ALLER GY PROFI LE K201-YxR wheat <0.10 kU/L class 0 Not Available [facility] ([facility]) [address] [facility], [place], [address], 10/29/2024 23:16:50 10/28/20 24 10/29/2024 FOOD ALLER GY PROFI LE M617-CtU corn <0.10 kU/L class 0 Not Available [facility] ([facility]) [address] [facility], [place], [address], 10/29/2024 23:16:50 10/28/20 24 10/29/2024 FOOD ALLER GY PROFI LE D295-YbG sesame seed <0.10 kU/L class 0 Not Available [facility] ([facility]) [address] [facility], [place], [address], 10/29/2024 23:16:50 10/28/20 24 10/29/2024 IMMUN OGLOB ULIN E, TOTAL immunoglobul in E, total 81 IU/mL 6-495 Not Available [facility] ([facility]) [address] [place], [address], 10/29/2024 23:16:50 06/23/20 24 03/18/2024 imagi ng/di agnos tic resul t No observ ation record ed. [email or web address] Not Available 21:06:53 08/06/20 audio gram No observ ation record ed. [email or web address] Not Available 2023 15:00:15 08/27/20 24 audio gram No observ ation record ed. [email or web address] Not Available 08/04 11:42:10 Result Notes None recorded. Problems Name Problem SNOMED Code Status Onset Date Resolution Date Notes Provider Name and Address Organization Details Recorded Time Chronic pharyngit is 862181 Active 2016 Chronic sore throat; Note: Date Diagnosed : 11/08/2016 2:47 PM (J31.2) Not Available [facility] 4 02:30:50 Gastroeso phageal reflux disease without esophagit is 618171671 Active 2016 Gastro-es ophageal reflux disease without esophagit is; Note: Date Diagnosed : 11/08/2016 2:47 PM (K21.9) Not Available [facility] 4 02:30:44 Mass of neck 743073381 Active 2014 Localized swelling, mass and lump, neck; Note: Date Diagnosed : 5 5:39 AM (R22.1) Not Available [facility] 4 02:30:45 Neck swelling 169711786 Active 2014 Localized swelling, mass and lump, neck; Note: Date Diagnosed : 5 5:39 AM (R22.1) Not Available [facility] 4 02:30:45 Lesion of oral mucosa 93938622428 94829 Active 2016 Other lesions of oral mucosa; Note: Date Diagnosed : 11/08/2016 2:53 PM (K13.79) Not Available [facility] 4 02:31:01 Tinnitus of left ear 61837297108 06 Active 2023 LAVONNE RODRIGUEZ MD 100 [facility],[place] [address], [place], [address] , [place] [facility] 4 11:32:24 Migraine 22920948 Active 2023 LAVONNE RODRIGUEZ MD 100 [facility] 100, [place], [address] , [place] [facility] 4 11:32:34 Pharyngea l dysphagia 71133336756 105 Active 2023 LAVONNE RODRIGUEZ MD 100 [facility],[place] [address], [place], [address] , [facility] - [facility] 4 11:32:47 Abnormal auditory perceptio n 06803809 Active 2023 LAVONNE RODRIGUEZ MD [address] [facility] [address], [place], [address] , [place] [facility] 4 11:33:02 Abnormal auditory perceptio n 15572600 Active 2023 LION HEREDIA MD 100 [facility],[place] [address], [place], [address] , [place] [facility] 4 14:26:32 Neck pain 62837355 Active 2023 LION HEREDIA MD 100 [facility],[place] [address], [place], [address] , [place] [facility] 4 14:26:40 Pain of left temporoma ndibular joint 11150717723 585635 Active 2023 LION HEREDIA MD 100 [facility],[place] [address], [place], [address] , [place] [facility] 4 14:26:28 Posterior rhinorrhe a 65819795 Active 2023 MARY SCHREIBER PA-C 100 [facility],[place] [address], [place], [address] , [place] [facility] 4 10:48:17 Allergic rhinitis 46737475 Active 2023 MARY SCHREIBER PA-C 100 [facility],[place] [address], [place], [address] , [place] [facility] 4 10:48:34 Perennial allergic rhinitis 098689390 Active 2023 PATIENCE PRADO, [facility] [address] [place],[facility] 100, [place], [address] , [place] [facility] 08:39:44 Problem Notes None recorded. Procedures Surgical History Date Name Laterality Status Provider Name and Address Organization Details Recorded Time 01/25/20 25 Allergy Immunotherapy Injections completed BERTIN PAIGE RN 100 [facility],[address], [address], [facility] - [facility] 01/24/2025 10:49:11 08/27/20 24 Tympanometry (32604) completed Melodie GANN 100 [facility],[address], [address], [facility] - [facility] 08/27/2024 10:00:48 08/06/20 24 Air & Speech Audio with Tymps (66027, 86346 & 68633) completed SIMBA ALEGRE MA, CCC-A 100 [facility],[address], [address], [facility] - [facility] 08/06/2024 14:03:16 03/18/20 24 Fiberoptic Laryngoscopy (Comprehensive) completed LAVONNE SIM MD 100 [facility],[address], [address], [facility] - [facility] 03/18/2024 11:32:05 03/18/20 24 Air only Audio (09332) completed MELODIE DELCID 100 [facility],[address], [address], [facility] - [facility] 03/18/2024 11:52:00 03/18/20 24 SRT & Speech Recognition (05559) completed MELODIE DELCID 100 [facility],[address], [address], [facility] - [facility] 03/18/2024 11:52:17 11/03/19 18 removal of sebaceous cyst completed Rizwan Castillo [place] [facility] 03/18/2024 11:23:09 11/03/19 17 Breast augmentation w/implt completed Rizwan Castillo [place] [facility] 03/18/2024 11:23:46 therapeutic cervical epidural injection completed LAVONNE SIM MD 100 [facility],[address], [place], [address], [place] [facility] 03/18/2024 11:24:17 Imaging Results Imaging Date [...] Name and Address Organization Details Recorded Time 63078 penicilli n V potassium medicatio n rash Not available Not available 03/16/202455377 5 RxNorm React ion: unkno wn, unspe cifie d;; Not Available [facility] Medications Name Sig Start [...] 1 tablet 2016 active Medicati on ID: [id number] P rennyripankaj d By Name: Colleen jensen [...] Last Updated DateTime 170.18 cm 19.4 kg/m2 00278.4 5 g 82 /min 107 mm[Hg] 71 mm[Hg] BERTIN PAIGE RN [address] [place] [address], [address], [place] - [facility] 10:28:45 Date Recorded Body height Body mass index (BMI) Body weight Provider Name and Address Organization Details Last Updated DateTime 05/07/2024 167.64 cm 20.7 kg/m2 76156.82 g Kike Casanova [place] [facility] 05/07/2024 14:00:00 Date Recorded Body height Body mass index (BMI) Body weight Provider Name and Address Organization Details Last Updated DateTime 08/06/2024 167.64 cm 19.4 kg/m2 28027.08 g Rizwan Castillo [place] [facility] 08/06/2024 14:18:43 Date Recorded Body height Body mass index (BMI) Body weight Provider Name and Address Organization Details Last Updated DateTime 08/27/2024 167.64 cm 19.4 kg/m2 02301.08 g Kike Casanova [place] [facility] 08/27/2024 09:35:59 Date Recorded Body height Body mass index (BMI) Body weight Provider Name and Address Organization Details Last Updated DateTime 12/30/2024 167.64 cm 20.3 kg/m2 78380.64 g Renetta Moulton [place] - [facility] 12/30/2024 10:12:43 Social History Question Answer Notes LastModified by Organizat ion Details LastModified Time Tobacco Smoking Status Never Smoker Rizwan salas [place] [facility] 03/18/2024 11:22:25 What Is Your Level Of Alcohol Consumption? None [email or web address] Information not available 03/18/2024 Do You Use Any Illicit Or Recreational Drugs? No [email or web address] Information not available 03/18/2024 Do You Or Have You Ever Used Any Other Forms Of Tobacco Or Nicotine? No [email or web address] Information not available 03/18/2024 Sex: Unknown Functional Status None recorded. Mental Status None recorded. Family History Nothing Reported. Medical History Condition Response Allergies/Hayfever Y Heart Problems N Arthritis N Anxiety N Hyperlipidemia N Asthma Y High Cholesterol N Anesthesia Complications N Gynecological HistoryNo gynecological history recorded. Obstetrics History GPAL:G 0 P 0 0 0 0 Past Encounters Encounter ID Performer Location Encounter Start Date Encounter Closed Date Diagnosis/Indication Diagnosis SNOMED-CT Code Diagnosis ICD10 Code Diagnosis Note [id number] LAVONNE RODRIGUEZ MD [facility] [address] [address] 03/18/2024 11:13:52 03/18/2024 12:02:33 Tinnitus of left ear 8473085799 106 H93.12 Hearing within normal limits AU.Type A tympanogra ms AU. Migraine 44226888 G43.90 9 Pharyngeal dysphagia 238 1925979 9105 R13.13 She notes a sensation of randomly having a cough with saliva or fluids. Transnasal fiberoptic laryngosco py shows normal vocal fold mobility and no masses Abnormal a uditory perception 03188342 H93.292 Patient presents with sensation of fullness, [...] about fluid in the ear Neck pain 82478095 M54.2 [id number] LION HEREDIA MD [facility] [address] [address] 05/07/2024 13:53:44 05/07/2024 14:43:55 Pain of left temporomandibular joint 8529635336 6320368 M26.622 Abnormal a uditory perception 64569515 H93.292 Neck pain 55575975 M54.2 [id number] LION HEREDIA MD [facility] [address] [address] 08/06/2024 13:30:04 08/06/2024 17:05:24 Abnormal auditory perception 09647234 H93.299 Audiologic al evaluation results: Right ear: [...] Cou ld not maintain a hermetic seal}} [id number] LAVONNE RODRIGUEZ MD [facility] [address] [address] 08/27/2024 09:33:34 08/27/2024 10:32:43 Abnormal auditory perception 98244193 H93.299 Tympanomet ry: Right Ear:{{Type A* Type [...] maintain a hermetic seal}} Posterior rhinorrhea 758 82754 R09.82 Allergic rhinitis 540603 04 J30.9 [id number] MP SRIVASTAVA MD [facility] [address] [address] 12/30/2024 10:02:27 12/30/2024 10:38:00 Allergic rhinitis 06831561 J30.89 Chronic pharyngitis 1400 04 J31.2 Pain of le ft temporomandibular joint 4973372946 1766914 M26.622 Tinnitus of left ear 644 0123927 106 H93.12 [id number] BERTIN PAIGE RN Allergy [address] [place] [address] 01/24/2025 10:02:49 01/24/2025 10:54:21 Perennial allergic rhinitis 587787193 J30.89 Health Concerns Section Related Observation LastModified by Organization Detai ls LastModified Time None Recorded Concern Status LastModified by Organization Details LastModified Time None Recorded Advance Directives Directive None Recorded Payers Encounter Date Sequence Insurance Name Policy Number Policy [place] Covered Member ID T[place]ano Member ID Guarantor Name 05/07/2024 1 [facility] (MEDICAID REPLACEMENT - HMO) [place] Lismarie Dykes [id number] Lismarie Dykes 08/06/2024 1 [facility] (MEDICAID REPLACEMENT - HMO) [place] Lismarie Dykes [id number] Lismarie Dykes 08/27/2024 1 [facility] (MEDICAID REPLACEMENT - HMO) [place] Lismarie Dykes [id number] Lismarie Dykes 12/30/2024 1 [facility] (MEDICAID REPLACEMENT - HMO) [place] Lismarie Dykes [id number] Lismarie Dykes 01/24/2025 1 [facility] (MEDICAID REPLACEMENT - HMO) [place] Lismarie Dykes [id number] Lismarie Dykes Notes Date Note Type Note [...] choking on her saliva LION HEREDIA MD [address] [place] [address], [address], [place] - [facility] 05/07/2024 14:27:55 08/06/2024 text/html 33-year-old fema [...] occasional room-spinning dizziness. LION HEREDIA MD 100 [facility],[address], [address], [facility] 08/06/2024 17:16:04 08/27/2024 text/html 33-year-old fema [...] taking Zyrtec daily. LAVONNE SIM MD 100 [facility],[address], [address], [facility] 08/30/2024 12:02:43 12/30/2024 text/html 34-year-old fema le with chronic regional pain syndrome and left TMJ presents for allergy test results. She reports her left sided ear pain and pressure are stable. Allergy testing demonstrated moderate sensitivity to dog dander, birch tree, and oak tree. Patient reports her allergy symptoms do not improve with vfgy-lcq-novnggn Zyrtec and Flonase, which she has been taking daily for 7 months. MP SRIVASTAVA MD 100 [facility],[address], [address], [facility] 12/31/2024 08:08:47 OBGyn Episode No OBEpisode recorded.
== END 2025-02-22 13:51 | disposition home or self-care (01) ==
LOC: HO.HSMS 13:26
PROVIDERS: PCP Internal Medicine; Visit Provider Psychiatry & Neurology Neurology
DX: G43.719 Chronic migraine without aura, intractable, without status migrainosus (principal)
CPT/HCPCS: 64615

== ENCOUNTER → 2025-02-22 13:25 | Outpatient (BNVA) | payer OTHER, SELFPAY | PROVIDERS: PCP Internal Medicine; Visit Provider Psychiatry & Neurology Neurology | DX: G43.719 Chronic migraine without aura, intractable, without status migrainosus (principal) | CPT/HCPCS: 64615; 99211; J0585 ==

== ENCOUNTER → 2025-02-28 09:54 | Outpatient (REF) | payer OTHER, SELFPAY ==
--- OUTSIDE RECORDS SUMMARY | 2025-02-28 11:24 | XMS_ITS | Clinical Summary ---
Author Organization [facility] Address [address] [place] [address] Care Team Providers Care Dedicated Owner Operator Name Role Phone Ho Araya MD Primary Care Provider [phone] Allergies Active Allergy Reactions Criticality Noted Date [...] age to complete this topic Care Teams Dedicated Owner Operator Relationship Specialty Start Date End Date Ho Araya MD PCP - General Internal Medicine 05/19/24
--- OUTSIDE RECORDS SUMMARY | 2025-02-28 11:24 | XMS_ITS | Clinical Summary ---
Author Organization [facility] Address [address] [place] [address] Care Team Providers Care Health Information Technologist Name Role Phone Wendi Toney MD Primary Care Provider [phone] Social History Tobacco Use Types Packs/Day Years [...] topic Insurance COMMERCIAL on file Care Teams Health Information Technologist Relationship Specialty Start Date End Date Wendi Toney MD [address] [place] [address] PCP - General Internal Medicine 08/31/20
--- OUTSIDE RECORDS SUMMARY | 2025-02-28 11:24 | XMS_ITS | Clinical Summary ---
Author Organization [facility] Address [address] [place] [address] Phone Care Team Providers Care Lines Tender Name Role Phone Ho Araya MD Primary Care Provider Allergies Active Allergy Reactions Criticality Noted Date [...] bottle twice daily for weight loss / Armbrust Flavored 60 each Active lidocaine (XYLOCAINE) 5 [...] 11/17/2020 Migraine 07/03/2018 Overview (08/12/2024): Seen at [facility], initial visit 09/26/2020. Nerve blocks and trigger point injections done 10/04/2020 and 01/04/2021. Acne vulgaris 08/21/2016 Asthma 01/09/2012 Encounters Date Type Department Care Team Description 01/24/2025 2:15 PM EDT Office Visit Orthopedic Surgery [facility] [address] [address] Diaz Galeana, DPM Fibromyalgia (Primary Dx); Complex regional pain syndrome type 1, affecting unspecified site 12/31/2024 Telephone Orthopedic Surgery [facility] 250 175 [facility] [address] [place] [phone] Nena Zepeda from Last 3 Months Immunizations Name Administration Dates Next Due Influenza Quadravalent, MDCK , 0.5ml, preservative free (Flucelvax) 6mo and older 10/22/2021 Influenza trivalent, with pr eservative (Fluzone; Afluria) 6mo and older 08/21/2016 Surgical History Surgery Date Site/Laterality Comments BREAST SURGERY PROCEDURE:TRANSUMBILICAL AUGMENTATION MAMMAPLASTY OVARIAN CYST REMOVAL PROCEDURE:OVARIAN CYST REMOVAL OVARIAN CYST REMOVAL N/A PROCEDURE: VT OVARIAN CYSTECTOMY UNI/BI BREAST SURGERY PROCEDURE: VT BREAST AUGMENTATION WITH IMPLANT Medical History Medical History Date Comments Asthma DX:Asthma Migraines 07/03/2018 DX:Migraines; CO MMENT: Seen at [facility], initial visit 09/26/2020. Nerve [...] Info) Description 04/05/2025 1:45 PM EDT Appointment [facility] Xray [address] [place] [address] 05/02/2025 10:30 AM EDT Office Visit [facility] Hematology Oncology [address] [place] [phone] Clotilde Lux, [address] [place] [address] Health Maintenance Due Date Last Done Comments [...] Results * Diabetes Eye Exam (02/15/2025) Result [facility] Provider [facility] HEALTH MAINTENANCE Final Result * External clinical lab (01/17/2025) Only the most recent of4 resultswithin the time period is included. Result [facility] LAB BLOOD ORDERABLES Fin al Result * C-reactive protein (12/29/2024 11:47 AM EST) Blood Venous blood specimen / Unknown Result [facility] Rojelio Oliver MD LAB BLOOD ORDERABLES Final Result * External MRI Report (12/27/2024) Anatomical Region Laterality Modality Magnetic Resonan ce Result [facility] IMG MRI PROCEDURES Final Result * Depression Screening (05/12/2024) Depression Screening abstracted Result [facility] Kimi Dockery MD HEALTH MAINTENANCE Final Result * Lipid panel (05/12/2024) LDL/HDL Ratio 3 0 - 4 Triglycerides 56 0 - 150 mg/dL Cholesterol 173 0 - 200 mg/dL HDL 68 >=40 mg/dL LDL Cholesterol 94 0 - 100 mg/dL Blood Venous blood specimen / Unknown Result [facility] Kimi Dockery MD LAB BLOOD ORDERABLES Katy l Result * Hepatitis C Screening (11/17/2020) [facility] Screening abstracted us Historical Provider HEALTH MAINTENANCE Final Result from Last 3 Months or Most Recently Relevant to Health Maintenance Insurance [facility] [employer] Care Teams Lines Tender Relationship Specialty Start Date End Date Ho Araya MD [address] [place] [phone] PCP - General Internal Medicine 07/25/15
--- OUTSIDE RECORDS SUMMARY | 2025-02-28 11:25 | XMS_ITS | Encounter Summary ---
Author Organization [facility] Address [address] [place] [address] Care Team Providers Care Superintendent Job Name Role Phone Ho Araya MD Primary Care Provider [phone] Encounter Details Date Type Department Care Team (Late Contact Info) Description 09/24/2024 Lab Requisition [facility] - Main Lab [address] [facility] [place] [phone] Sergio Gross PA [address] [facility] [address] [place] [phone] Other microscopic hematuria Social History Tobacco Use [...] Info) Description 04/05/2025 1:45 PM EDT Appointment [facility] Xray [address] [place] [phone] 05/02/2025 10:30 AM EDT Office Visit [facility] Hematology Oncology [address] [place] [phone] Clotilde Lux, [address] [place] [address] documented as of this encounter Procedures Procedure [...] clinical and pathological findings. 10/12/2024 9:06 AM [facility] Addendum electronically signed by Gaetano Fernando MD on 10/12/2024 at 9:06 AM Final Diagnosis Urine, Voided: Negative for high grade urothelial carcinoma. Note: UroVysion testing to follow. 10/12/2024 9:06 AM [facility] Clinical Information [id number], Urine cyto/urine FISH. 10/12/2024 9:06 AM [facility] Gross Description A. Urine, Voided, : [id number] recd 1 TP cyto 1 TP fish. 10/12/2024 9:06 AM [facility] Disclaimer Unless otherwise specified, all tissue is 10% NB formalin fixed and paraffin embedded. 10/12/2024 9:06 AM [facility] Tissue Urine specimen from urethra / Unknown 09/21/2024 09/24/2024 1:47 PM EST us Sergio SHIRLEY LAB PATHOLOGY ORDERABLES Edite d Result - Final [facility] [address] [place] [address], documented in this encounter Visit Diagnoses Diagnosis Other microscopic hematuria documented in this encounter Care Teams Superintendent Job Relationship Specialty Start Date End Date Ho Araya MD [address] [place] [address] PCP - General Internal Medicine 07/25/15 documented as of this encounter
--- OUTSIDE RECORDS SUMMARY | 2025-02-28 11:25 | XMS_ITS | Data Portability ---
Author Organization [facility], [address] Address [address] [place] [address] Assessment No assessment recorded. Plan of Treatment Reminders Order Date Submit Date Provider Last Modified By Organization Details Last Modified Time Details Appointments None recorded. Lab rapid strep group A, throat 2022 023 [email or web address] [address], [address] [place], [address], 3 13:02:13 streptococc us group A, culture, throat 2022 023 [email or web address] [facility], [address] [place] [address], [place], [address], 3 13:11:10 Referral None recorded. Procedures None recorded. Surgeries None recorded. Imaging None recorded. Medication Orders prednisone 20 mg tablet [address] [facility] #1130, [phone] [place], [address], 4 09:11:00 cefdinir 300 mg capsule [address] [facility]/Pharmacy #1130, [phone] [place], [address], 4 09:10:58 Ciprodex 0.3 %-0.1 % ear drops,suspe nsion [address] [facility]/Pharmacy #1130, [phone] [place], [address], 4 08:57:12 Zithromax Z-Kory 250 mg tablet 2023 024 [facility] [phone] [place], [address], 4 09:49:54 Polytrim 10,000 unit-1 mg/mL eye drops 2022 023 [facility] [phone] [place], [address], 3 10:38:33 Patient TargetsNo targets recorded. Patient Instructions Encounter Date Encounter Id Patient Instructions Last Modified By Organization Details Last Modified Time 12/31/2022 [id number] pinkeye: care instructions [email or web address] Not available 12/31/2022 13:04:53 sore throat: car e instructions [email or web address] Not available 12/31/2022 13:02:13 Use the eye [...] Emergency Medical evaluation for any worsening symptoms. [email or web address] Not available 12/31/2022 13:07:42 01/07/2023 [id number] sore throat: car e instructions Not available 01/07/2023 11:57:17 04/18/2024 [id number] Your ear does no t currently look [...] Ricky dorsey Not available 04/18/2024 09:22:15 06/19/2024 [id number] middle ear fluid : care instructions [email or web address] Not available 06/19/2024 09:10:56 Reason for Referral None Reported. Results Created Date Observation Date Name Description Value Unit Range Abnormal Flag Note LastModifiedBy Organization Detail LastModifiedTime 12/31/1901/02/2023 BETA STREP GP A CULTU RE beta strep gp A culture COMMEN T abnormal Beta- hemol ytic colon ies, not group A Strep tococ cus isola olwell. Refer ence Range : Negat philly Penic [...] p A). (CLSI ) Not Available [facility] ([facility]) [address] [facility], [place], [address], 01/02/2023 12:06:18 12/31/19 23 12/31/2022 rapid strep group A, throa t Unknown Analyte Normal = Negati ve Not Available [address] [place], [address], 12/31/2022 11:53:41 12/31/19 23 12/31/2022 rapid strep group A, throa t Unknown Analyte negati ve Not Available [address] [place], [address], 12/31/2022 11:53:41 Result Notes None recorded. Problems Name Problem SNOMED Code Status Onset Date Resolution Date Notes Provider Name and Address Organization Details Recorded Time Otitis externa of left ear 9056928509903 109 Active 2023 Deacon Evans, DO [address] , [place], [address], [place] - [facility] 4 09:49:06 Acute left otitis media 746857949 Active 2023 Deacon Evans, DO [address] , [place], [address], [place] - [facility] 4 11:56:45 Acute serous otitis media of bilateral ears 8245731421725 107 Active 2023 Boyd Dodge, LABORATORY TESTER [address] , [place], [address], [place] - [facility] 4 09:08:47 Bilateral earache 854828214 Active 2023 Boyd Dodge, LABORATORY TESTER [address] , [place], [address], [place] - [facility] 4 09:09:15 Fibromyalgi a 415311284 Active 2022 TONYA DESMITH null, PA - [facility] 3 11:56:52 Migraine 83543967 Active 2022 TONYA DESMITH null, PA - [...] Name and Address Organization Details Recorded Time 747042 Product containin g penicilli n (product) medicatio n rash Not available Not available 12/31/2022 94594 8001 SNOMED TONYA DESMDELPHINE null, PA - [facility] 3 11:54:53 750342 Reglan medicatio n itching Not available Not [...] Details Last Updated DateTime 4 167.64 cm 86030.4 2 g 98 % 98 % 7 [...] DateTime 4 167.64 cm 7 97.1 [degF] 35615.0 1 g 98 % 98 % 90 /min 96 mm[Hg] 65 mm[Hg] Karla Kilgore PA - [facility] 4 08:38:15 Date Recorded Body height Body weight Body mass index (BMI) Heart rate Respiratory rate Body temperature Systolic blood pressure Diastolic blood pressure Provider Name and Address Organization Details Last Updated DateTime 4 167.64 cm 20805.6 g 21.1 kg/m2 68 /min 18 /min [...] Updated DateTime 3 168.91 cm 22.3 kg/m2 79331.9 3 g 5 99 % 99 % 104 /min 20 /min 98.2 [degF] 104 mm[Hg] 70 mm[Hg] TONYA MICHELLE PA - [facility] 3 12:00:10 Date Recorded Body height Body mass index (BMI) Body weight Pain severity - 0-10 verbal numeric rating [Score] - Reported Provider Name and Address Organization Details Last Updated DateTime 01/07/2023 168.91 cm 22.3 kg/m2 54122.93 g 7 TONYA MICHELLE [facility] - [facility] [...] Had A Flu Shot This Season? No [email or web address] Information not available 04/18/2024 What Is Your Water Source? City Information not available 06/19/2024 What Is Your Heat Source? Other Information not available 06/19/2024 Have You Had Direct Contact, Or Contact During Intimacy, With Monkeypox Rash, Scabs, Or Body Fluids From A Person With Monkeypox? No [email or web address] Information not available 04/03/2024 What Was The Date Of Your Most Recent Tobacco Screening? 04/18/2024 [email or web address] Information not available 04/18/2024 Are You Passively [...] SNOMED-CT Code Diagnosis ICD10 Code Diagnosis Note [id number] [address] [place] [address] 03/10/2019 15:42:30 03/10/2019 17:32:00 [id number] [address] [place] [address] 01/26/2022 10:49:30 01/26/2022 12:09:11 [id number] [address] [place] [address] 07/21/2021 11:45:18 07/21/2021 15:15:57 [id number] [address] [place] [address] 12/26/2019 08:04:10 12/26/2019 08:36:06 [id number] [address] [place] [address] 06/11/2022 18:25:04 06/11/2022 19:35:13 [id number] [place]essia Mead [place] [address] [place] [address] 12/31/2022 11:33:22 12/31/2022 13:09:21 Acute pharyngitis 388956915 J02.9 Acute conj unctivitis of left eye 5764267382 17678 H10.32 [id number] Alessia Mead [facility] [address] [facility] [address] [place] [address] 01/07/2023 10:17:20 01/07/2023 12:01:17 Left without being seen 3892260632 9102 Z53.21 [id number] Deacon Evans [place] [address] [facility] [place] [address] 04/03/2024 09:21:52 04/03/2024 10:13:05 Otitis externa of left ear 4038989839 853887 H60.92 See pcp in 3-4 days or return to urgent care in 3-4 days if cant be seen by pcp for follow up. Go to ER if anything worsens. Otc tylenol as needed for pain. Symptomati c treatment. All of patients questions have been answered. Patient has understand ing and agreement of all of this. Acute left otitis media 953566608 H66.92 pt is rx zpak. sx tx. slight erythema to left tm [id number] [facility] [address] [facility] [address] [place] [address] 04/18/2024 08:23:00 04/18/2024 09:23:34 Otalgia of left ear 5164700436 H92.02 [id number] Boyd Dodge NP [address] [facility] [address] [place] [address] 06/19/2024 08:40:12 06/19/2024 09:15:56 Acute serous otitis media of bilateral ears 7098075430 495653 H65.03 You have been diagnosed with a [...] antibiotic resistance . Thank you for using [facility] today - and don't hesitate to contact our office if you have any concerns or questions. Bilateral earache 676304 003 H92.03 Health Concerns Section Related Observation LastModified by Organization Detai ls LastModified Time None Recorded Concern Status LastModified by Organization Details LastModified Time None Recorded Advance Directives Directive None Recorded Payers Encounter Date Sequence Insurance Name Policy Number Policy [place] Covered Member ID [place] Member ID Guarantor Name 12/31/2022 1 [facility] [employer] (MEDICAID HMO) [employer] Lismarie Dykes [id number] Lismarie Dykes 01/07/2023 1 [facility] [employer] (MEDICAID HMO) [employer] Lismarie Dykes [id number] Lismarie Dykes 04/03/2024 1 [facility] [employer] (MEDICAID HMO) [employer] Lismarie Dykes [id number] Lismarie Dykes 04/18/2024 1 [facility] [employer] (MEDICAID HMO) [employer] Lismarie Dykes [id number] Lismarie Dykes 06/19/2024 1 [facility] [employer] (MEDICAID HMO) [employer] Lismarie Dykes [id number] Lismarie Dykes Notes Date Note Type Note [...] Alessia Mead MD [address] [place], [address], [place] - [facility] 01/01/2023 13:02:57 04/03/20 24 text/htm l hx of multiple ear infections in past. follows ent for this. has now left ear pain for the past 4 days. getting worse. no trauma. no fevers. no hearing loss. other uri sx. no chance she is pregant or nursing. Deacon Evans DO [address] [place], [address], [place] - [facility] 04/03/2024 11:57:32 04/18/20 [...] factors:ototopical antibiotics: ciprodex FERN No [address] [place], [address], [place] - [facility] 04/18/2024 09:22:30 06/19/20 [...] Dodge NP [address] [place], [address], [place] - [facility] 06/19/2024 09:11:50 OBGyn Episode No OBEpisode recorded.
--- OUTSIDE RECORDS SUMMARY | 2025-02-28 11:25 | XMS_ITS | Data Portability ---
Author Organization [place] - [facility], Allergy Address [address] [address] Care Team Providers Care Sliver Lap Tender Name Role Phone MCKENZIEMARLYN PANCHAL Primary Care [...] mL injection , auto-inje ctor 2024 025 [facility]acy #[id number], [phone] [place], [address], 12/30/2024 10:26:56 Patient TargetsNo targets recorded. Patient [...] >100. 00 Very High Not Available [facility] ([facility]) [address] [place], [address], 10/29/2024 23:16:49 10/28/20 24 10/29/2024 ALLER GENS, ZONE 1 K343-FkS D pteronyssinu s 0.16 kU/L class 0/I abnormal Not Available [facility] ([facility]) [address] [place], [address], 10/29/2024 23:16:49 10/28/20 24 10/29/2024 ALLER GENS, ZONE 1 E659-WaE D farinae 0.12 kU/L class 0/I abnormal Not Available [facility] ([facility]) [address] [place], [address], 10/29/2024 23:16:49 10/28/20 24 10/29/2024 ALLER GENS, ZONE 1 Y581-JnT CAT dander 0.12 kU/L class 0/I abnormal Not Available [facility] ([facility]) [address] [place], [address], 10/29/2024 23:16:49 10/28/20 24 10/29/2024 ALLER GENS, ZONE 1 Y792-UrL dog dander 5.14 kU/L class IV abnormal Not Available [facility] ([facility]) [address] [place], [address], 10/29/2024 23:16:49 10/28/20 24 10/29/2024 ALLER GENS, ZONE 1 q341-EeN bermuda grass <0.10 kU/L class 0 Not Available [facility] ([facility]) [address] [place], [address], 10/29/2024 23:16:49 10/28/20 24 10/29/2024 ALLER GENS, ZONE 1 y287-OeA bluegrass, kent[place] <0.10 kU/L class 0 Not Available [facility] ([facility]) [address] [facility] [place], [address], 10/29/2024 23:16:49 10/28/20 24 10/29/2024 ALLER GENS, ZONE 1 j990-McL bahia grass <0.10 kU/L class 0 Not Available [facility] ([facility]) [address] [place], [address], 10/29/2024 23:16:49 10/28/20 24 10/29/2024 ALLER GENS, ZONE 1 W411-FbJ cockroach, macanese 0.10 kU/L class 0/I abnormal Not Available [facility] ([facility]) [address] [place], [address], 10/29/2024 23:16:49 10/28/20 24 10/29/2024 ALLER GENS, ZONE 1 X493-YoM penicillium chrysogen <0.10 kU/L class 0 Not Available [facility] ([facility]) [address] [place], [address], 10/29/2024 23:16:49 10/28/20 24 10/29/2024 ALLER GENS, ZONE 1 R082-LxY cladosporium herbarum <0.10 kU/L class 0 Not Available [facility] ([facility]) [address] [place], [address], 10/29/2024 23:16:49 10/28/20 24 10/29/2024 ALLER GENS, ZONE 1 H053-TlK aspergillus fumigatus <0.10 kU/L class 0 Not Available [facility] ([facility]) [address] [place], [address], 10/29/2024 23:16:49 10/28/20 24 10/29/2024 ALLER GENS, ZONE 1 P383-JsN mucor racemosus <0.10 kU/L class 0 Not Available [facility] ([facility]) [address] [place], [address], 10/29/2024 23:16:49 10/28/20 24 10/29/2024 ALLER GENS, ZONE 1 D880-RaT alternaria alternata <0.10 kU/L class 0 Not Available [facility] ([facility]) [address] [place], [address], 10/29/2024 23:16:49 10/28/20 24 10/29/2024 ALLER GENS, ZONE 1 Q981-QnA stemphylium herbarum <0.10 kU/L class 0 Not Available [facility] ([facility]) [address] [place], [address], 10/29/2024 23:16:49 10/28/20 24 10/29/2024 ALLER GENS, ZONE 1 V297-GfL common silver birch 3.39 kU/L class III abnormal Not Available [facility] ([facility]) [address] [place], [address], 10/29/2024 23:16:49 10/28/20 24 10/29/2024 ALLER GENS, ZONE 1 D614-FxK oak, white 10.60 kU/L class IV abnormal Not Available [facility] ([facility]) [address] [place], [address], 10/29/2024 23:16:49 10/28/20 24 10/29/2024 ALLER GENS, ZONE 1 C575-VzG elm, macanese <0.10 kU/L class 0 Not Available [facility] ([facility]) [address] [place], [address], 10/29/2024 23:16:49 10/28/20 24 10/29/2024 ALLER GENS, ZONE 1 Z694-XdA samira, white <0.10 kU/L class 0 Not Available [facility] ([facility]) [address] [place], [address], 10/29/2024 23:16:49 10/28/20 24 10/29/2024 ALLER GENS, ZONE 1 F988-ElR maple/box elder 0.23 kU/L class 0/I abnormal Not Available [facility] ([facility]) [address] [facility] [place], [address], 10/29/2024 23:16:49 10/28/20 24 10/29/2024 ALLER GENS, ZONE 1 V838-OcS hazelnut tree 1.25 kU/L class II abnormal Not Available [facility] ([facility]) [address] [facility] [place], [address], 10/29/2024 23:16:49 10/28/20 24 10/29/2024 ALLER GENS, ZONE 1 B240-PkS hickory, white 0.13 kU/L class 0/I abnormal Not Available [facility] ([facility]) [address] [place], [address], 10/29/2024 23:16:49 10/28/20 24 10/29/2024 ALLER GENS, ZONE 1 N798-BiP white mulberry <0.10 kU/L class 0 Not Available [facility] ([facility]) [address] [place], [address], 10/29/2024 23:16:49 10/28/20 24 10/29/2024 ALLER GENS, ZONE 1 R184-DgG cedar, mountain <0.10 kU/L class 0 Not Available [facility] ([facility]) [address] [place], [address], 10/29/2024 23:16:49 10/28/20 24 10/29/2024 ALLER GENS, ZONE 1 R741-IrU ragweed, short <0.10 kU/L class 0 Not Available [facility] ([facility]) [address] [place], [address], 10/29/2024 23:16:49 10/28/20 24 10/29/2024 ALLER GENS, ZONE 1 O991-DdU mugwort <0.10 kU/L class 0 Not Available [facility] ([facility]) [address] [place], [address], 10/29/2024 23:16:49 10/28/20 24 10/29/2024 ALLER GENS, ZONE 1 F804-EeK plantain, hebrew <0.10 kU/L class 0 Not Available [facility] ([facility]) [address] [place], [address], 10/29/2024 23:16:49 10/28/20 24 10/29/2024 ALLER GENS, ZONE 1 F287-AgQ pigweed, common <0.10 kU/L class 0 Not Available [facility] ([facility]) [address] [place], [address], 10/29/2024 23:16:49 10/28/20 24 10/29/2024 ALLER GENS, ZONE 1 W579-PzM sheep sorrel <0.10 kU/L class 0 Not Available [facility] ([facility]) [address] [place], [address], 10/29/2024 23:16:49 10/28/20 24 10/29/2024 ALLER GENS, ZONE 1 R150-RiD nettle <0.10 kU/L class 0 Not Available [facility] ([facility]) [address] [place], [address], 10/29/2024 23:16:49 10/28/20 24 10/29/2024 FOOD ALLER GY PROFI LE I604-BjP egg white 0.21 kU/L class 0/I abnormal Not Available [facility] ([facility]) [address] [place], [address], 10/29/2024 23:16:50 10/28/20 24 10/29/2024 FOOD ALLER GY PROFI LE V463-PnT peanut <0.10 kU/L class 0 Not Available [facility] ([facility]) [address] [place], [address], 10/29/2024 23:16:50 10/28/20 24 10/29/2024 FOOD ALLER GY PROFI LE N268-QfZ soybean <0.10 kU/L class 0 Not Available [facility] ([facility]) [address] [place], [address], 10/29/2024 23:16:50 10/28/20 24 10/29/2024 FOOD ALLER GY PROFI LE W420-IdB milk 0.66 kU/L class II abnormal Not Available [facility] ([facility]) [address] [place], [address], 10/29/2024 23:16:50 10/28/20 24 10/29/2024 FOOD ALLER GY PROFI LE L048-IrF clam <0.10 kU/L class 0 Not Available [facility] ([facility]) [address] [place], [address], 10/29/2024 23:16:50 10/28/20 24 10/29/2024 FOOD ALLER GY PROFI LE Q282-RdM shrimp 0.10 kU/L class 0/I abnormal Not Available [facility] ([facility]) [address] [place], [address], 10/29/2024 23:16:50 10/28/20 24 10/29/2024 FOOD ALLER GY PROFI LE S011-VfS walnut <0.10 kU/L class 0 Not Available [facility] ([facility]) [address] [place], [address], 10/29/2024 23:16:50 10/28/20 24 10/29/2024 FOOD ALLER GY PROFI LE W739-YrZ codfish <0.10 kU/L class 0 Not Available [facility] ([facility]) [address] [place], [address], 10/29/2024 23:16:50 10/28/20 24 10/29/2024 FOOD ALLER GY PROFI LE L534-SwN scallop <0.10 kU/L class 0 Not Available [facility] ([facility]) [address] [facility] [place], [address], 10/29/2024 23:16:50 10/28/20 24 10/29/2024 FOOD ALLER GY PROFI LE V354-RpV wheat <0.10 kU/L class 0 Not Available [facility] ([facility]) [address] [facility] [place], [address], 10/29/2024 23:16:50 10/28/20 24 10/29/2024 FOOD ALLER GY PROFI LE T913-TqH corn <0.10 kU/L class 0 Not Available [facility] ([facility]) [address] [facility] [place], [address], 10/29/2024 23:16:50 10/28/20 24 10/29/2024 FOOD ALLER GY PROFI LE F304-YnK sesame seed <0.10 kU/L class 0 Not Available [facility] ([facility]) [address] [facility] [place], [address], 10/29/2024 23:16:50 10/28/20 24 10/29/2024 IMMUN OGLOB ULIN E, TOTAL immunoglobul in E, total 81 IU/mL 6-495 Not Available [facility] ([facility]) [address] [place], [address], 10/29/2024 23:16:50 06/23/20 24 03/18/2024 imagi ng/di [...] Organization Details Recorded Time Chronic pharyngit is 775768 Active 2016 Chronic sore throat; Note: Date Diagnosed : 11/08/2016 2:47 PM (J31.2) Not Available Replaced by [facility] 4 02:30:50 Gastroeso phageal reflux disease without esophagit is 301947493 Active 2016 Gastro-es ophageal reflux disease without esophagit is; Note: Date Diagnosed : 11/08/2016 2:47 PM (K21.9) Not Available Replaced by [facility] 4 02:30:44 Mass of neck 963674032 Active 2014 Localized swelling, mass and lump, neck; Note: Date Diagnosed : 5 5:39 AM (R22.1) Not Available Replaced by [facility] 4 02:30:45 Neck swelling 145430255 Active 2014 Localized swelling, mass and lump, neck; Note: Date Diagnosed : 5 5:39 AM (R22.1) Not Available Replaced by [facility] 4 02:30:45 Lesion of oral mucosa 51161538244 69777 Active 2016 Other lesions of oral mucosa; Note: Date Diagnosed : 11/08/2016 2:53 PM (K13.79) Not Available Replaced by [facility] 4 02:31:01 Tinnitus of left ear 20300700548 06 Active 2023 LAVONNE RODRIGUEZ MD [address] [facility],[place] [address], [place], [address] , [place] [facility] 4 11:32:24 Migraine 97873152 Active 2023 LAVONNE RODRIGUEZ MD 100 [facility] [address], [place], [address] , [place] [facility] 4 11:32:34 Pharyngea l dysphagia 69846478842 105 Active 2023 LAVONNE RODRIGUEZ MD [address] [facility] [place] [address], [place], [address] , [facility] - [facility] [place] 4 11:32:47 Abnormal auditory perceptio n 32667701 Active 2023 LAVONNE RODRIGUEZ MD [address] [facility] [place] [address], [place], [address] , [place] [facility] 4 11:33:02 Abnormal auditory perceptio n 19289380 Active 2023 LION HEREDIA MD 100 [facility],[place] [address], [place], [address] , [place] [facility] 4 14:26:32 Neck pain 49654772 Active 2023 LION HEREDIA MD 100 [facility],[place] [address], [place], [address] , [place] [facility] 4 14:26:40 Pain of left temporoma ndibular joint 87756257338 368998 Active 2023 LION HEREDIA MD [address] [facility],[place] [address], [place], [address] , [place] [facility] 4 14:26:28 Posterior rhinorrhe a 83200329 Active 2023 MARY SCHREIBER PA-C [address] [facility],[place] [address], [place], [address] , [place] [facility] 4 10:48:17 Allergic rhinitis 77869515 Active 2023 MARY SCHREIBER PA-C [address] [facility],[place] [address], [place], [address] , [place] [facility] 4 10:48:34 Perennial allergic rhinitis 313229094 Active 2023 PATIENCE PRADO, [facility] [address] [place],[facility] 100, [place], [address] , [place] [facility] 08:39:44 Problem Notes None recorded. Procedures Surgical History Date Name Laterality Status Provider Name and Address Organization Details Recorded Time 01/25/20 25 Allergy Immunotherapy Injections completed BERTIN PAIGE RN [address] [facility],[address], [address], [facility] - [facility] 01/24/2025 10:49:11 08/27/20 24 Tympanometry (48627) completed Melodie GANN 100 [facility],[address], [address], [facility] - [facility] 08/27/2024 10:00:48 08/06/20 24 Air & Speech Audio with Tymps (75399, 47488 & 91732) completed SIMBA ALEGRE MA, CCC-A [address] [facility],[address], [address], [facility] - [facility] 08/06/2024 14:03:16 03/18/20 24 Fiberoptic Laryngoscopy (Comprehensive) completed LAVONNE SIM MD 100 [facility],[address], [address], [facility] - [facility] 03/18/2024 11:32:05 03/18/20 24 Air only Audio (40986) completed MELODIE DELCID 100 [facility],[address], [address], [facility] - [facility] 03/18/2024 11:52:00 03/18/20 24 SRT & Speech Recognition (44770) completed MELODIE DELCID [address] [facility],[address], [address], [facility] - [facility] 03/18/2024 11:52:17 11/03/19 18 removal of sebaceous cyst completed Rizwan Castillo [place] - [facility] 03/18/2024 11:23:09 11/03/19 17 Breast augmentation w/implt completed Rizwan Castillo [place] - [facility] 03/18/2024 11:23:46 therapeutic cervical epidural injection completed LAVONNE SIM MD 100 [facility],[address], [place], [address], [place] [facility] 03/18/2024 11:24:17 Imaging Results Imaging Date Name Status LastModified by Organiz ation Details LastModified Time 03/18/2024 imaging/diagno stic result completed [email or web address] Information not available 06/23/2024 21:06:53 08/06/2024 audiogram completed [email or web address] Information no t available 08/06/2024 15:00:15 08/27/2024 audiogram completed [email or web address] Information n ot available 08/27/2024 11:42:10 Procedure Notes None recorded. Medical Equipment None Reported. Allergies Allergen ID Allergen Name Allergen Category Reaction Reaction Severity Criticality Documentation Date Start Date Code Code System Note Provider Name and Address Organization Details Recorded Time 54043 penicilli n V potassium medicatio n rash Not available Not available 03/16/202477954 5 RxNorm React ion: unkno wn, unspe cifie d;; Not Available [email or web address] 00:54:41 Medications Name Sig Start Date Stop [...] 1 tablet 2016 active Medicati on ID: [id number] P rennyripankaj d By Name: Colleen jensen [...] Last Updated DateTime 170.18 cm 19.4 kg/m2 62295.4 5 g 82 /min 107 mm[Hg] 71 mm[Hg] BERTIN PAIGE RN [address] [place] [address], [address], [place] - [facility] 10:28:45 Date Recorded Body height Body mass index (BMI) Body weight Provider Name and Address Organization Details Last Updated DateTime 05/07/2024 167.64 cm 20.7 kg/m2 74488.82 g Kike Casanova [place] - [facility] 05/07/2024 14:00:00 Date Recorded Body height Body mass index (BMI) Body weight Provider Name and Address Organization Details Last Updated DateTime 08/06/2024 167.64 cm 19.4 kg/m2 88732.08 g Rizwan Castillo [place] [facility] 08/06/2024 14:18:43 Date Recorded Body height Body mass index (BMI) Body weight Provider Name and Address Organization Details Last Updated DateTime 08/27/2024 167.64 cm 19.4 kg/m2 32029.08 g Kike Casanova [place] [facility] 08/27/2024 09:35:59 Date Recorded Body height Body mass index (BMI) Body weight Provider Name and Address Organization Details Last Updated DateTime 12/30/2024 167.64 cm 20.3 kg/m2 59128.64 g Renetta Moulton [place] - [facility] 12/30/2024 10:12:43 Social History Question Answer Notes LastModified by Organizat ion Details LastModified Time Tobacco Smoking Status Never Smoker Rizwan salas [place] - [facility] 03/18/2024 11:22:25 What Is Your Level Of Alcohol Consumption? None [email or web address] Information not available 03/18/2024 Do You Use Any Illicit Or Recreational Drugs? No [email or web address] Information not available 03/18/2024 Do You Or Have You Ever Used Any Other Forms Of Tobacco Or Nicotine? No [email or web address] Information not available 03/18/2024 Sex: Unknown Functional [...] Note 512 LAVONNE RODRIGUEZ MD [facility] [address] [address] 03/18/2024 11:13:52 03/18/2024 12:02:33 Tinnitus of left ear 1180114262 106 H93.12 Hearing within normal limits AU.Type A tympanogra ms AU. Migraine 81412649 G43.90 9 Pharyngeal dysphagia 970 8376647 9105 R13.13 She notes a sensation of randomly having a cough with saliva or fluids. Transnasal fiberoptic laryngosco py shows normal vocal fold mobility and no masses Abnormal a uditory perception 37903103 H93.292 Patient presents with sensation of fullness, [...] about fluid in the ear Neck pain 69492256 M54.2 6669 LION HEREDIA MD [facility] [address] [address] 05/07/2024 13:53:44 05/07/2024 14:43:55 Pain of left temporomandibular joint 8198588464 6042275 M26.622 Abnormal a uditory perception 70369892 H93.292 Neck pain 46365452 M54.2 90654 LION HEREDIA MD [facility] [address] [address] 08/06/2024 13:30:04 08/06/2024 17:05:24 Abnormal auditory perception 06924768 H93.299 Audiologic al evaluation results: Right ear: [...] Cou ld not maintain a hermetic seal}} 82692 LAVONNE RODRIGUEZ MD [facility] [address] [address] 08/27/2024 09:33:34 08/27/2024 10:32:43 Abnormal auditory perception 48581044 H93.299 Tympanomet ry: Right Ear:{{Type A* Type [...] maintain a hermetic seal}} Posterior rhinorrhea 758 56036 R09.82 Allergic rhinitis 026361 04 J30.9 77604 MP SRIVASTAVA MD [facility] [address] [address] 12/30/2024 10:02:27 12/30/2024 10:38:00 Allergic rhinitis 91519021 J30.89 Chronic pharyngitis 1400 04 J31.2 Pain of le ft temporomandibular joint 7588288368 9826404 M26.622 Tinnitus of left ear 389 0544530 106 H93.12 01634 BERTIN PAIGE RN Allergy [address] [place] [address] 01/24/2025 10:02:49 01/24/2025 10:54:21 Perennial allergic rhinitis 520815436 J30.89 Health Concerns Section Related Observation LastModified by Organization Detai ls LastModified Time None Recorded Concern Status LastModified by Organization Details LastModified Time None Recorded Advance Directives Directive None Recorded Payers Encounter Date Sequence Insurance Name Policy Number Policy T[place]ano Covered Member ID Toscano Member ID Guarantor Name 05/07/2024 1 [facility] (MEDICAID REPLACEMENT - HMO) [place] Lismarie Dykes [id number] Lismarie Dykes 08/06/2024 1 [facility] (MEDICAID REPLACEMENT - HMO) [employer] Lismarie Dykes [id number] Lismarie Dykes 08/27/2024 1 [facility] (MEDICAID REPLACEMENT - HMO) [employer] Lismarie Dykes [id number] Lismarie Dykes 12/30/2024 1 [facility] (MEDICAID REPLACEMENT - HMO) [employer] Lismarie Dykes [id number] Lismarie Dykes 01/24/2025 1 [facility] (MEDICAID REPLACEMENT - HMO) [employer] Lismarie Dykes [id number] Lismarie Dykes Notes Date Note Type Note [...] choking on her saliva LION HEREDIA MD [address] [place] [address], [address], [place] - [facility] 05/07/2024 14:27:55 08/06/2024 text/html 33-year-old fema [...] occasional room-spinning dizziness. LION HEREDIA MD 100 [facility],[address], [address], [facility] 08/06/2024 17:16:04 08/27/2024 text/html 33-year-old fema [...] taking Zyrtec daily. LAVONNE SIM MD 100 [facility],[address], [address], [facility] 08/30/2024 12:02:43 12/30/2024 text/html 34-year-old fema le with chronic regional pain syndrome and left TMJ presents for allergy test results. She reports her left sided ear pain and pressure are stable. Allergy testing demonstrated moderate sensitivity to dog dander, birch tree, and oak tree. Patient reports her allergy symptoms do not improve with ccse-gdv-xflmied Zyrtec and Flonase, which she has been taking daily for 7 months. MP SRIVASTAVA MD [address] [facility],[address], [address], [facility] 12/31/2024 08:08:47 OBGyn Episode No OBEpisode recorded.
== END ==
LOC: HO.SL 09:54
PROVIDERS: Visit Provider Nurse Practitioner Family
DX: G47.9 Sleep disorder, unspecified (principal); R06.83 Snoring
CPT/HCPCS: 95806

== ENCOUNTER → 2025-03-02 10:18 | Outpatient (BNV) | payer OTHER, SELFPAY | PROVIDERS: Visit Provider Internal Medicine | DX: R06.83 Snoring (principal); G47.30 Sleep apnea, unspecified | CPT/HCPCS: 95806 ==

== ENCOUNTER 2025-03-14 11:09 | Outpatient (AMB) | payer OTHER, SELFPAY ==
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
[2025-03-14 11:07] VITALS: BMI 18.6
--- OUTSIDE RECORDS SUMMARY | 2025-03-14 12:03 | XMS_ITS | Data Portability ---
Author Organization [place] [facility], Allergy Address [address] [address] Care Team Providers Care Trackmobile Operator Name Role Phone MCKENZIEMARLYN PANCHAL Primary Care Provider [phone] Assessment Encounter Date Assessment Date Assessment LastModified [...] Appointments Establish ed 15 2024 10:00A M MARY SCHREIBER PA-C Not available Not available Not available Establish ed- Allergy f-up 6mon 2024 10:15A [...] mL injection , auto-inje ctor 2024 025 [facility] #[id number], [phone] [facility], [place], [address], 12/30/2024 10:26:56 Patient TargetsNo targets recorded. Patient [...] >100. 00 Very High Not Available [facility] ([facility]) [address] [place], [address], 10/29/2024 23:16:49 10/28/20 24 10/29/2024 ALLER GENS, ZONE 1 U123-SlL D pteronyssinu s 0.16 kU/L class 0/I abnormal Not Available [facility] ([facility]) [address] [place], [address], 10/29/2024 23:16:49 10/28/20 24 10/29/2024 ALLER GENS, ZONE 1 Y669-BxM D farinae 0.12 kU/L class 0/I abnormal Not Available [facility] ([facility]) [address] [place], [address], 10/29/2024 23:16:49 10/28/20 24 10/29/2024 ALLER GENS, ZONE 1 W950-QwC CAT dander 0.12 kU/L class 0/I abnormal Not Available [facility] ([facility]) [address] [place], [address], 10/29/2024 23:16:49 10/28/20 24 10/29/2024 ALLER GENS, ZONE 1 N223-EjR dog dander 5.14 kU/L class IV abnormal Not Available [facility] ([facility]) [address] [place], [address], 10/29/2024 23:16:49 10/28/20 24 10/29/2024 ALLER GENS, ZONE 1 p967-JxH bermuda grass <0.10 kU/L class 0 Not Available [facility] ([facility]) [address] [place], [address], 10/29/2024 23:16:49 10/28/20 24 10/29/2024 ALLER GENS, ZONE 1 h896-UsT bluegrass, [place] <0.10 kU/L class 0 Not Available [facility] ([facility]) [address] [facility], [place], [address], 10/29/2024 23:16:49 10/28/20 24 10/29/2024 ALLER GENS, ZONE 1 w396-JtG bahia grass <0.10 kU/L class 0 Not Available [facility] ([facility]) [address] [facility], [place], [address], 10/29/2024 23:16:49 10/28/20 24 10/29/2024 ALLER GENS, ZONE 1 U226-LtP cockroach, portuguese 0.10 kU/L class 0/I abnormal Not Available [facility] ([facility]) [address] [facility], [place], [address], 10/29/2024 23:16:49 10/28/20 24 10/29/2024 ALLER GENS, ZONE 1 K843-SqP penicillium chrysogen <0.10 kU/L class 0 Not Available [facility] ([facility]) [address] [place], [address], 10/29/2024 23:16:49 10/28/20 24 10/29/2024 ALLER GENS, ZONE 1 M011-WoI cladosporium herbarum <0.10 kU/L class 0 Not Available [facility] ([facility]) [address] [place], [address], 10/29/2024 23:16:49 10/28/20 24 10/29/2024 ALLER GENS, ZONE 1 F246-MlX aspergillus fumigatus <0.10 kU/L class 0 Not Available [facility] ([facility]) [address] [place], [address], 10/29/2024 23:16:49 10/28/20 24 10/29/2024 ALLER GENS, ZONE 1 B575-CpL mucor racemosus <0.10 kU/L class 0 Not Available [facility] ([facility]) [address] [place], [address], 10/29/2024 23:16:49 10/28/20 24 10/29/2024 ALLER GENS, ZONE 1 I074-WfM alternaria alternata <0.10 kU/L class 0 Not Available [facility] ([facility]) [address] [place], [address], 10/29/2024 23:16:49 10/28/20 24 10/29/2024 ALLER GENS, ZONE 1 B174-ScM stemphylium herbarum <0.10 kU/L class 0 Not Available [facility] ([facility]) [address] [place], [address], 10/29/2024 23:16:49 10/28/20 24 10/29/2024 ALLER GENS, ZONE 1 K581-UqL common silver birch 3.39 kU/L class III abnormal Not Available [facility] ([facility]) [address] [place], [address], 10/29/2024 23:16:49 10/28/20 24 10/29/2024 ALLER GENS, ZONE 1 I530-IaE oak, white 10.60 kU/L class IV abnormal Not Available [facility] ([facility]) [address] [facility] [place], [address], 10/29/2024 23:16:49 10/28/20 24 10/29/2024 ALLER GENS, ZONE 1 S413-JbR elm, portuguese <0.10 kU/L class 0 Not Available [facility] ([facility]) [address] [place], [address], 10/29/2024 23:16:49 10/28/20 24 10/29/2024 ALLER GENS, ZONE 1 E842-LjV samira, white <0.10 kU/L class 0 Not Available [facility] ([facility]) [address] [facility], [place], [address], 10/29/2024 23:16:49 10/28/20 24 10/29/2024 ALLER GENS, ZONE 1 W492-GrI maple/box elder 0.23 kU/L class 0/I abnormal Not Available [facility] ([facility]) [address] [facility], [place], [address], 10/29/2024 23:16:49 10/28/20 24 10/29/2024 ALLER GENS, ZONE 1 X496-AeX hazelnut tree 1.25 kU/L class II abnormal Not Available [facility] ([facility]) [address] [facility], [place], [address], 10/29/2024 23:16:49 10/28/20 24 10/29/2024 ALLER GENS, ZONE 1 X139-KbE hickory, white 0.13 kU/L class 0/I abnormal Not Available [facility] ([facility]) [address] [facility], [place], [address], 10/29/2024 23:16:49 10/28/20 24 10/29/2024 ALLER GENS, ZONE 1 O237-KwS white mulberry <0.10 kU/L class 0 Not Available [facility] ([facility]) [address] [facility], [place], [address], 10/29/2024 23:16:49 10/28/20 24 10/29/2024 ALLER GENS, ZONE 1 J563-WjY cedar, mountain <0.10 kU/L class 0 Not Available [facility] ([facility]) [address] [facility], [place], [address], 10/29/2024 23:16:49 10/28/20 24 10/29/2024 ALLER GENS, ZONE 1 Y862-MxR ragweed, short <0.10 kU/L class 0 Not Available [facility] ([facility]) [address] [place], [address], 10/29/2024 23:16:49 10/28/20 24 10/29/2024 ALLER GENS, ZONE 1 O242-EnV mugwort <0.10 kU/L class 0 Not Available [facility] ([facility]) [address] [facility], [place], [address], 10/29/2024 23:16:49 10/28/20 24 10/29/2024 ALLER GENS, ZONE 1 F293-DdL plantain, cymraes <0.10 kU/L class 0 Not Available [facility] ([facility]) [address] [facility], [place], [address], 10/29/2024 23:16:49 10/28/20 24 10/29/2024 ALLER GENS, ZONE 1 X742-JmB pigweed, common <0.10 kU/L class 0 Not Available [facility] ([facility]) [address] [facility], [place], [address], 10/29/2024 23:16:49 10/28/20 24 10/29/2024 ALLER GENS, ZONE 1 F622-SqQ sheep sorrel <0.10 kU/L class 0 Not Available [facility] ([facility]) [address] [facility], [place], [address], 10/29/2024 23:16:49 10/28/20 24 10/29/2024 ALLER GENS, ZONE 1 O313-YdX nettle <0.10 kU/L class 0 Not Available [facility] ([facility]) [address] [facility], [place], [address], 10/29/2024 23:16:49 10/28/20 24 10/29/2024 FOOD ALLER GY PROFI LE Z975-CiH egg white 0.21 kU/L class 0/I abnormal Not Available [facility] ([facility]) [address] [facility], [place], [address], 10/29/2024 23:16:50 10/28/20 24 10/29/2024 FOOD ALLER GY PROFI LE V207-LdM peanut <0.10 kU/L class 0 Not Available [facility] ([facility]) [address] [place], [address], 10/29/2024 23:16:50 10/28/20 24 10/29/2024 FOOD ALLER GY PROFI LE C569-StV soybean <0.10 kU/L class 0 Not Available [facility] ([facility]) [address] [place], [address], 10/29/2024 23:16:50 10/28/20 24 10/29/2024 FOOD ALLER GY PROFI LE T517-DfF milk 0.66 kU/L class II abnormal Not Available [facility] ([facility]) [address] [place], [address], 10/29/2024 23:16:50 10/28/20 24 10/29/2024 FOOD ALLER GY PROFI LE P617-NoM clam <0.10 kU/L class 0 Not Available [facility] ([facility]) [address] [place], [address], 10/29/2024 23:16:50 10/28/20 24 10/29/2024 FOOD ALLER GY PROFI LE X020-NrS shrimp 0.10 kU/L class 0/I abnormal Not Available [facility] ([facility]) [address] [place], [address], 10/29/2024 23:16:50 10/28/20 24 10/29/2024 FOOD ALLER GY PROFI LE H146-VjK walnut <0.10 kU/L class 0 Not Available [facility] ([facility]) [address] [place], [address], 10/29/2024 23:16:50 10/28/20 24 10/29/2024 FOOD ALLER GY PROFI LE U178-ExZ codfish <0.10 kU/L class 0 Not Available [facility] ([facility]) [address] [facility], [place], [address], 10/29/2024 23:16:50 10/28/20 24 10/29/2024 FOOD ALLER GY PROFI LE B268-YeI scallop <0.10 kU/L class 0 Not Available [facility] ([facility]) [address] [facility], [place], [address], 10/29/2024 23:16:50 10/28/20 24 10/29/2024 FOOD ALLER GY PROFI LE R072-IyQ wheat <0.10 kU/L class 0 Not Available [facility] ([facility]) [address] [facility], [place], [address], 10/29/2024 23:16:50 10/28/20 24 10/29/2024 FOOD ALLER GY PROFI LE I068-PjC corn <0.10 kU/L class 0 Not Available [facility] ([facility]) [address] [facility], [place], [address], 10/29/2024 23:16:50 10/28/20 24 10/29/2024 FOOD ALLER GY PROFI LE G711-NrG sesame seed <0.10 kU/L class 0 Not Available [facility] ([facility]) [address] [facility], [place], [address], 10/29/2024 23:16:50 10/28/20 24 10/29/2024 IMMUN OGLOB ULIN E, TOTAL immunoglobul in E, total 81 IU/mL 6-495 Not Available [facility] ([facility]) [address] [facility], [place], [address], 10/29/2024 23:16:50 06/23/20 24 03/18/2024 imagi ng/di agnos tic resul t No observ ation record ed. [email or web address] Not Available 21:06:53 08/06/20 24 audio gram No observ ation record ed. [email or web address] Not Available 2023 15:00:15 08/27/20 24 audio gram No observ ation record ed. [email or web address] Not Available 08/04 11:42:10 Result Notes None recorded. Problems Name Problem SNOMED Code Status Onset Date Resolution Date Notes Provider Name and Address Organization Details Recorded Time Chronic pharyngit is 720124 Active 2016 Chronic sore throat; Note: Date Diagnosed : 11/08/2016 2:47 PM (J31.2) Not Available [facility] 4 02:30:50 Gastroeso phageal reflux disease without esophagit is 841954496 Active 2016 Gastro-es ophageal reflux disease without esophagit is; Note: Date Diagnosed : 11/08/2016 2:47 PM (K21.9) Not Available [facility] 4 02:30:44 Mass of neck 588518702 Active 2014 Localized swelling, mass and lump, neck; Note: Date Diagnosed : 5 5:39 AM (R22.1) Not Available [facility] 4 02:30:45 Neck swelling 626280199 Active 2014 Localized swelling, mass and lump, neck; Note: Date Diagnosed : 5 5:39 AM (R22.1) Not Available [facility] 4 02:30:45 Lesion of oral mucosa 93716004420 27429 Active 2016 Other lesions of oral mucosa; Note: Date Diagnosed : 11/08/2016 2:53 PM (K13.79) Not Available [facility] 4 02:31:01 Tinnitus of left ear 11107251608 06 Active 2023 LAVONNE RODRIGUEZ MD [address] [place], [place] [address], [address] , [facility] 4 11:32:24 Migraine 13461741 Active 2023 LAVONNE RODRIGUEZ MD [address] [place] [address],[place] [address], [address] , [place] [facility] 4 11:32:34 Pharyngea l dysphagia 00797374492 105 Active 2023 LAVONNE RODRIGUEZ MD [address] [facility], [place], [address] , [place] [facility] 4 11:32:47 Abnormal auditory perceptio n 64216854 Active 2023 LAVONNE RODRIGUEZ MD [address] [facility],[address], [place], [address] , [place] [facility] 4 11:33:02 Abnormal auditory perceptio n 95359386 Active 2023 LION HEREDIA MD [address] [facility],[address], [place], [address] , [place] [facility] 4 14:26:32 Neck pain 11531924 Active 2023 LION HEREDIA MD [address] [facility],[address], [place], [address] , [place] [facility] 4 14:26:40 Pain of left temporoma ndibular joint 57247939370 336488 Active 2023 LION HEREDIA MD [address] [facility],[address], [place], [address] , [place] [facility] 4 14:26:28 Posterior rhinorrhe a 12775554 Active 2023 MARY SCHREIBER PA-C [address] [facility],[address], [place], [address] , [place] [facility] 4 10:48:17 Allergic rhinitis 93244990 Active 2023 MARY SCHREIBER PA-C [address] [facility],[address], [place], [address] , [place] [facility] 4 10:48:34 Perennial allergic rhinitis 368615258 Active 2023 ZARI DIAZ 100 [facility],[address], [place], [address] , [place] [facility] 08:39:44 Problem Notes None recorded. Procedures Surgical History Date Name Laterality Status Provider Name and Address Organization Details Recorded Time 01/25/20 25 Allergy Immunotherapy Injections completed BERTIN PAIGE RN [address] [facility],[place] [address], [place], [address], [facility] 01/24/2025 10:49:11 08/27/20 24 Tympanometry - 80780 completed GIRISH CRESPO, AuD [address] [facility],[place] [address], [place], [address], [facility] 08/27/2024 10:00:48 08/06/20 24 Air & Speech Audio with Tymps - 45730, [address]60[address] & [address]42[address] completed SIMBA ALEGRE MA, CCC-A [address] [facility],[address], [address], [facility] 08/06/2024 14:03:16 03/18/20 24 Fiberoptic Laryngoscopy (Comprehensive) completed LAVONNE SIM MD [address] [facility],[address], [address], [facility] 03/18/2024 11:32:05 03/18/20 24 Air only Audio - 64997 completed MORA WEAVER AUD 100 [facility],[address], [address], [facility] 03/18/2024 11:52:00 03/18/20 24 SRT & Speech Recognition - 73463 completed MORA WEAVER AUD [address] [facility],[address], [address], [facility] 03/18/2024 11:52:17 11/03/19 18 removal of sebaceous cyst completed Rizwan Castillo [place] [facility] 03/18/2024 11:23:09 11/03/19 17 Breast augmentation w/implt completed Rizwan Castillo [place] [facility] 03/18/2024 11:23:46 therapeutic cervical epidural injection completed LAVONNE SIM MD [address] [place] [address], [place], [address], [facility] 03/18/2024 11:24:17 Imaging Results Imaging Date Name Status LastModified by Organiz ation Details LastModified Time 03/18/2024 imaging/diagno stic result completed [email or web address] Information not available 06/23/2024 21:06:53 08/06/2024 audiogram completed [email or web address] Information no t available 08/06/2024 15:00:15 08/27/2024 audiogram completed [email or web address] Information n ot available 08/27/2024 11:42:10 Procedure Notes None recorded. Medical Equipment None Reported. Allergies Allergen ID Allergen Name Allergen Category Reaction Reaction Severity Criticality Documentation Date Start Date Code Code System Note Provider Name and Address Organization Details Recorded Time 13247 penicilli n V potassium medicatio n rash Not available Not available 03/16/202462524 5 RxNorm React ion: unkno wn, unspe cifie d;; Not Available [facility] 00:54:41 Medications Name Sig Start Date Stop [...] 1 tablet 2016 active Medicati on ID: [id number] Xochilt lawsonripankaj d By Name: Colleen jensen MD Brand [...] Last Updated DateTime 170.18 cm 19.4 kg/m2 75962.4 5 g 82 /min 107 mm[Hg] 71 mm[Hg] BERTIN PAIGE RN [address] [place] [address], [address], [place] [facility] 5 10:28:45 Date Recorded Body height Body mass index (BMI) Body weight Provider Name and Address Organization Details Last Updated DateTime 05/07/2024 167.64 cm 20.7 kg/m2 25854.82 g Kike Casanova [place] [facility] 05/07/2024 14:00:00 Date Recorded Body height Body mass index (BMI) Body weight Provider Name and Address Organization Details Last Updated DateTime 08/06/2024 167.64 cm 19.4 kg/m2 21423.08 g Rizwan Castillo [place] [facility] 08/06/2024 14:18:43 Date Recorded Body height Body mass index (BMI) Body weight Provider Name and Address Organization Details Last Updated DateTime 08/27/2024 167.64 cm 19.4 kg/m2 60507.08 g Kike Casanova [place] [facility] 08/27/2024 09:35:59 Date Recorded Body height Body mass index (BMI) Body weight Provider Name and Address Organization Details Last Updated DateTime 12/30/2024 167.64 cm 20.3 kg/m2 37885.64 g Renetta Moulton [place] [facility] 12/30/2024 10:12:43 Social History None recorded. Functional Status Question Answer Note LastModified by Organizat ion Details LastModified Time Do you use any illicit or recreational drugs? No [email or web address] Information not available 03/18/2024 Do you or have you ever used any other forms of tobacco or nicotine? No [email or web address] Information not available 03/18/2024 What is your level of alcohol consumption? None [email or web address] Information not available 03/18/2024 Mental Status None recorded. Family History Nothing [...] Note 512 LAVONNE RODRIGUEZ MD [facility] [address] [address] 03/18/2024 11:13:52 03/18/2024 12:02:33 Tinnitus of left ear 2907283989 106 H93.12 Hearing within normal limits AU.Type A tympanogra ms AU. Migraine 32430558 G43.90 9 Pharyngeal dysphagia 327 5241195 9105 R13.13 She notes a sensation of randomly having a cough with saliva or fluids. Transnasal fiberoptic laryngosco py shows normal vocal fold mobility and no masses Abnormal a uditory perception 05135772 H93.292 Patient presents with sensation of fullness, [...] about fluid in the ear Neck pain 79528435 M54.2 6669 LION HEREDIA MD [facility] [address] [place] [address] 05/07/2024 13:53:44 05/07/2024 14:43:55 Pain of left temporomandibular joint 4729672267 3481481 M26.622 Abnormal a uditory perception 31490271 H93.292 Neck pain 29575911 M54.2 43287 NEMESIO MENDEZ PA-C [facility] [address] [place] [address] 08/06/2024 13:30:04 08/06/2024 17:05:24 Abnormal auditory perception 14846998 H93.299 Audiologic al evaluation results: Right ear: {{Normal* Normal through 2 kHz Mild M oderate Mo derately-s evere Rebecca re Profoun d}} {{hearing* sloping to a mild slopi ng to a moderate s loping to moderately severe slo ping to severe slo ping to profound f lat high frequency low frequency mid frequency cookie bite wie curve}} {{with* se nsorineura l hearing loss [...] Cou ld not maintain a hermetic seal}} 35874 MARY SCHREIBER PA-C [facility] [address] [address] 08/27/2024 09:33:34 08/27/2024 10:32:43 Abnormal auditory perception 55808546 H93.299 Tympanomet ry: Right Ear:{{Type A* Type [...] maintain a hermetic seal}} Posterior rhinorrhea 758 12700 R09.82 Allergic rhinitis 681997 04 J30.9 09826 WALE SANTIZO PA-C [facility] [address] [address] 12/30/2024 10:02:27 12/30/2024 10:38:00 Allergic rhinitis 50353786 J30.89 Chronic pharyngitis 1400 04 J31.2 Pain of le ft temporomandibular joint 1577257703 8651563 M26.622 Tinnitus of left ear 112 6264868 106 H93.12 02685 BERTIN PAIGE RN Allergy [address] [place] [address] [address] 01/24/2025 10:02:49 01/24/2025 10:54:21 Perennial allergic rhinitis 149341527 J30.89 Health Concerns Section Related Observation LastModified by Organization Christyai karen LastModified Time None Recorded Concern Status LastModified by Organization Details LastModified Time None Recorded Advance Directives Directive None Recorded Payers Insurance Date Sequence Insurance Name Policy Number Policy [place] Covered Member ID [place] Member ID Guarantor Name 03/10/2025 1 [facility] [employer] - (MEDICAID REPLACEMENT - HMO) MARIBELL Ruffinarza [id number] Alondra Dykes Notes Date Note Type Note [...] on her saliva LION HEREDIA MD 100 [facility],[address], [address], [place] [facility] 05/07/2024 14:27:55 08/06/2024 text/html 33-year-old fema [...] occasional room-spinning dizziness. LION HEREDIA MD 100 [facility],[address], [address], [place] [facility] 08/06/2024 17:16:04 08/27/2024 text/html 33-year-old fema [...] taking Zyrtec daily. LAVONNE SIM MD 100 [facility],[address], [address], [place] [facility] 08/30/2024 12:02:43 12/30/2024 text/html 34-year-old fema le with chronic regional pain syndrome and left TMJ presents for allergy test results. She reports her left sided ear pain and pressure are stable. Allergy testing demonstrated moderate sensitivity to dog dander, birch tree, and oak tree. Patient reports her allergy symptoms do not improve with sewd-ybe-isxpuln Zyrtec and Flonase, which she has been taking daily for 7 months. MP SRIVASTAVA MD 100 [facility],[place] [address], [place], [address], [facility] 12/31/2024 08:08:47 OBGyn Episode No OBEpisode recorded.
--- OUTSIDE RECORDS SUMMARY | 2025-03-14 12:03 | XMS_ITS | Clinical Summary ---
Author Organization [facility] Address [address] [place] [address] Care Team Providers Care Strip Picker Name Role Phone Ho Araya MD Primary Care Provider [phone] Allergies Active Allergy Reactions Criticality Noted Date [...] age to complete this topic Care Teams Strip Picker Relationship Specialty Start Date End Date Ho Araya MD PCP - General Internal Medicine 05/19/24
--- OUTSIDE RECORDS SUMMARY | 2025-03-14 12:03 | XMS_ITS | Data Portability ---
Author Organization [facility], [address] Address [address] [place] [address] Assessment No assessment recorded. Plan of Treatment Reminders Order Date Submit Date Provider Last Modified By Organization Details Last Modified Time Details Appointments None recorded. Lab rapid strep group A, throat 2022 023 [email or web address] 5 [address], [address] [place], [address], 3 13:02:13 streptococc us group A, culture, throat 2022 023 [email or web address] [facility], [address] [place] [address], [place], [address], 3 13:11:10 Referral None recorded. Procedures None recorded. Surgeries None recorded. Imaging None recorded. Medication Orders prednisone 20 mg tablet 2023 024 [facility], [phone] [place], [address], 4 09:11:00 cefdinir 300 mg capsule 2023 024 [facility], [phone] [place], [address], 4 09:10:58 Ciprodex 0.3 %-0.1 % ear drops,suspe nsion 2023 024 [facility], [phone] [place], [address], 4 08:57:12 Zithromax Z-Kory 250 mg tablet 2023 024 [facility] [phone] [place], [address], 4 09:49:54 Polytrim 10,000 unit-1 mg/mL eye drops 2022 023 [facility] [phone] [place], [address], 3 10:38:33 Patient TargetsNo targets recorded. Patient Instructions Encounter Date Encounter Id Patient Instructions Last Modified By Organization Details Last Modified Time 12/31/2022 [id number] pinkeye: care instructions [email or web address] Not available 12/31/2022 13:04:53 sore throat: car e instructions [email or web address] Not available 12/31/2022 13:02:13 Use the eye [...] Emergency Medical evaluation for any worsening symptoms. [email or web address] Not available 12/31/2022 13:07:42 01/07/2023 [id number] sore throat: car e instructions Not available 01/07/2023 11:57:17 04/18/2024 [id number] Your ear does no t currently look [...] Ricky dorsey Not available 04/18/2024 09:22:15 06/19/2024 [id number] middle ear fluid : care instructions [email or web address] [...] p A). (CLSI ) Not Available [facility] ([facility]) [address] [facility], [place], [address], 01/02/2023 12:06:18 12/31/19 23 12/31/2022 rapid strep group A, throa t Unknown Analyte Normal = Negati ve Not Available [address] [place], [address], 12/31/2022 11:53:41 12/31/19 23 12/31/2022 rapid strep group A, throa t Unknown Analyte negati ve Not Available [address] [place], [address], 12/31/2022 11:53:41 Result Notes None recorded. Problems Name Problem SNOMED Code Status Onset Date Resolution Date Notes Provider Name and Address Organization Details Recorded Time Otitis externa of left ear 3115374154155 109 Active 2023 Deacon Evans, DO [address] , [place], [address], [place] - [facility] 4 09:49:06 Acute left otitis media 119764069 Active 2023 Deacon Evans, DO [address] , [place], [address], [place] - [facility] 4 11:56:45 Acute serous otitis media of bilateral ears 1366531845306 107 Active 2023 Boyd Dodge, RIDE MECHANIC [address] , [place], [address], [place] - [facility] 4 09:08:47 Bilateral earache 047062598 Active 2023 Boyd Dodge, RIDE MECHANIC [address] , [place], [address], [place] - [facility] 4 09:09:15 Fibromyalgi a 720124165 Active 2022 TONYA DESMITH null, PA - [facility] 3 11:56:52 Migraine 48649853 Active 2022 TONYA DESMITH null, PA - [...] Name and Address Organization Details Recorded Time 155395 Product containin g penicilli n (product) medicatio n rash Not available Not available 12/31/2022 31024 8001 SNOMED TONYA DESMDELPHINE null, PA - [facility] 3 11:54:53 185619 Reglan medicatio n itching Not available Not [...] Details Last Updated DateTime 4 167.64 cm 31459.4 2 g 98 % 98 % 7 [...] DateTime 4 167.64 cm 7 97.1 [degF] 75120.0 1 g 98 % 98 % 90 /min 96 mm[Hg] 65 mm[Hg] Karla Kilgore PA - [facility] 4 08:38:15 Date Recorded Body height Body weight Body mass index (BMI) Heart rate Respiratory rate Body temperature Systolic blood pressure Diastolic blood pressure Provider Name and Address Organization Details Last Updated DateTime 4 167.64 cm 72885.6 g 21.1 kg/m2 68 /min 18 /min [...] Updated DateTime 3 168.91 cm 22.3 kg/m2 95684.9 3 g 5 99 % 99 % 104 /min 20 /min 98.2 [degF] 104 mm[Hg] 70 mm[Hg] TONYA MICHELLE PA - [facility] 3 12:00:10 Date Recorded Body height Body mass index (BMI) Body weight Pain severity - 0-10 verbal numeric rating [Score] - Reported Provider Name and Address Organization Details Last Updated DateTime 01/07/2023 168.91 cm 22.3 kg/m2 65398.93 g 7 TONYA MICHELLE PA - [facility] 01/07/2023 10:37:32 Social History Question Answer Notes LastModified by Organizat ion Details LastModified Time Tobacco Smoking Status Never Smoker TONYA salas [place] - [facility] 12/31/2022 11:57:26 Have You Had A Flu Shot This Season? No [email or web address] Information not available 04/18/2024 What Is Your Water Source? City Information not available 06/19/2024 What Is Your Heat Source? Other Information not available 06/19/2024 Have You Had Direct Contact, Or Contact During Intimacy, With Monkeypox Rash, Scabs, Or Body Fluids From A Person With Monkeypox? No [email or web address] Information not available 04/03/2024 What Was The Date Of Your Most Recent Tobacco Screening? 04/18/2024 [email or web address] Information not available 04/18/2024 Are You Passively Exposed To Smoke? No Information not available 06/19/2024 Have You Recently Traveled Abroad? No Information not available 12/31/2022 Sex: Unknown Functional Status Question Answer Note LastModified by Organizat ion Details LastModified Time Do you use any illicit or recreational drugs? No Information not available 12/31/2022 What is your level of alcohol consumption? None Information not available 12/31/2022 Are you currently employed? Yes Information not available 06/19/2024 Mental Status None recorded. Family History Relationship [...] SNOMED-CT Code Diagnosis ICD10 Code Diagnosis Note [id number] [address] [facility] [place] [address] 03/10/2019 15:42:30 03/10/2019 17:32:00 [id number] [address] [facility] [place] [address] 01/26/2022 10:49:30 01/26/2022 12:09:11 [id number] [address] [facility] [place] [address] 07/21/2021 11:45:18 07/21/2021 15:15:57 [id number] [address] [facility] [place] [address] 12/26/2019 08:04:10 12/26/2019 08:36:06 [id number] [address] [facility] [place] [address] 06/11/2022 18:25:04 06/11/2022 19:35:13 [id number] Alessia Mead MD [address] [facility] [place] [address] 12/31/2022 11:33:22 12/31/2022 13:09:21 Acute pharyngitis 361726800 J02.9 Acute conj unctivitis of left eye 5883415222 22362 H10.32 [id number] Alessia Mead MD [facility] [address] [facility] [place] [address] 01/07/2023 10:17:20 01/07/2023 12:01:17 Left without being seen 9068096189 9102 Z53.21 [id number] Deacon Evans DO [address] [address] [facility] [place] [address] 04/03/2024 09:21:52 04/03/2024 10:13:05 Otitis externa of left ear 8344987593 135856 H60.92 See pcp in 3-4 days or return to urgent care in 3-4 days if cant be seen by pcp for follow up. Go to ER if anything worsens. Otc tylenol as needed for pain. Symptomati c treatment. All of patients questions have been answered. Patient has understand ing and agreement of all of this. Acute left otitis media 504477522 H66.92 pt is rx zpak. sx tx. slight erythema to left tm [id number] [facility] [address] [facility] [address] [facility] [place] [address] 04/18/2024 08:23:00 04/18/2024 09:23:34 Otalgia of left ear 2945568563 H92.02 [id number] Boyd Dodge NP [address] [address] [facility] [place] [address] 06/19/2024 08:40:12 06/19/2024 09:15:56 Acute serous otitis media of bilateral ears 4655263282 485456 H65.03 You have been diagnosed with a [...] antibiotic resistance . Thank you for using [employer] today - and don't hesitate to contact our office if you have any concerns or questions. Bilateral earache 661532 003 H92.03 Health Concerns Section Related Observation LastModified by Organization Detai ls LastModified Time None Recorded Concern Status LastModified by Organization Details LastModified Time None Recorded Advance Directives Directive None Recorded Payers Insurance Date Sequence Insurance Name Policy Number Policy [place] Covered Member ID [place]ano Member ID Guarantor Name 06/19/2024 1 [facility] PLAN (MEDICAID HMO) MARIBELL Dykes [id number] Alondra Dykes Notes Date Note Type Note [...] Alessia Mead MD [address] [place], [address], [place] - [facility] 01/01/2023 13:02:57 04/03/20 24 text/htm l hx of multiple ear infections in past. follows ent for this. has now left ear pain for the past 4 days. getting worse. no trauma. no fevers. no hearing loss. other uri sx. no chance she is pregant or nursing. Deacon Evans DO [address] [place], [address], [employer] - [facility] 04/03/2024 11:57:32 04/18/20 24 [...] ciprodex [facility] No [address] [place], [address], [facility] 04/18/2024 09:22:30 06/19/20 24 text/htm l [...] Dodge NP [address] [place], [address], [place] - [facility] 06/19/2024 09:11:50 OBGyn Episode No OBEpisode recorded.
--- OUTSIDE RECORDS SUMMARY | 2025-03-14 12:03 | XMS_ITS | Clinical Summary ---
Author Organization [facility] Address [address] [place] [address] Care Team Providers Care Flight Hostess Name Role Phone Wendi Toney MD Primary [...] series) 2011 Pap Smear (Ages 21-65) 2013 COVID-19 Vaccine ( - 2023-2 5 season) 2024 Influenza Vaccine 06/03/2025 HPV Vaccines Aged Out No longer eligi ble based on patient's age to complete this topic Pneumococcal Vaccine: Pediat alan (0-5 Years) and At-Risk Patients (6 to 49 Years) Aged Out No longer eligible b ased on patient's age to complete this topic Insurance COMMERCIAL on file Care Teams Flight Hostess Relationship Specialty Start Date End Date Wendi Toney MD [address] [place] [address] PCP - General Internal Medicine 08/31/20
== END 2025-03-15 08:07 | disposition home or self-care (01) ==
LOC: HO.HSMS 11:10
PROVIDERS: Visit Provider Nurse Practitioner Family
DX: G90.512 Complex regional pain syndrome I of left upper limb (principal); G43.719 Chronic migraine without aura, intractable, without status migrainosus; R29.2 Abnormal reflex; R20.2 Paresthesia of skin; R25.1 Tremor, unspecified; M48.02 Spinal stenosis, cervical region; E55.9 Vitamin D deficiency, unspecified; G47.9 Sleep disorder, unspecified; R06.83 Snoring
CPT/HCPCS: 99214; G2211

== ENCOUNTER → 2025-03-14 11:09 | Outpatient (BNVA) | payer OTHER, SELFPAY | PROVIDERS: Visit Provider Nurse Practitioner Family ==

== ENCOUNTER 2025-04-12 13:41 | Outpatient (AMB) | payer OTHER, SELFPAY ==
[2025-04-12 13:44] VITALS: BP 90/52; PULSE 93; BMI 18.8
--- NOTE | 2025-04-12 13:44 | A.OFFVIS_ITS ---
Vital Signs 04/12/25 13:44 Height 5 ft 8 in Weight 123 lb 7.342 oz BMI 18.8 BP 90/52 L Blood Pressure Location Lt brachial Position Sitting Pulse 93 Pulse Source Pulse Oximeter Intake Visit Reasons: f/vj-vobbzk-zryt-tilt [employer] Required: No Allergies ibuprofen [From Motrin] Allergy (Severe, Verified 04/12/25 13:46) Unknown metoclopramide [From REGLAN] Allergy (Mild, Verified 04/12/25 13:46) ANXIETY Penicillins [PENICILLINS] Allergy (Unknown, Verified 04/12/25 13:46) RASH Medication List - Last Reconciled 04/12/25 by ИРИНА Membreno albuterol sulfate mg inhalation baclofen 10 mg PO TID PRN cetirizine 10 mg PO DAILY cholecalciferol (vitamin D3) 1,250 mcg PO QWEEK 12 days cyanocobalamin (vitamin B-12) 500 mcg PO DAILY 30 days docusate sodium 100 mg PO BID fluticasone propionate 50 mcg/actuation 1 spray intranasal BID lidocaine 5% 1 patch topical DAILY lorazepam 1 mg PO BID magnesium oxide 400 mg PO BEDTIME 30 days naratriptan take 1 tab at onset of headache; if no relief may repeat 1 tab after at least 4 hrs; max = 2 tabs/24 hrs PO 30 days onabotulinumtoxinA (Botox) 200 units IM ONCE 12 weeks ondansetron HCl 8 mg PO DAILY pantoprazole mg PO DAILY polyethylene glycol 3350 (Gavilax) grams PO pregabalin 200 mg PO TID 30 days riboflavin (vitamin B2) 400 mg PO DAILY 30 days rimegepant (Nurtec ODT) 75 mg PO ONCE PRN 30 days MDD 1 tab sennosides (senna) 8.6 mg PO DAILY zolpidem 5 mg PO BEDTIME PRN HPI HPI f/va-zkogbz-edzp-tilt: Details: Alondra is a 34-year-old female presenting with heart palpitations and lightheadedness. Symptoms started months ago, worsening over time. Heart palpitations increase with position changes, accompanied by fatigue and random fluttering episodes. Lightheadedness leads to visual disturbances without syncope. Swelling and color changes in the extremities occur alongside longstanding CRPS pain. Recent tilt table test confirming orthostatic hypotension. Lifestyle modifications for fluid and salt intake have been attempted, but symptoms still persist. She tells me her CRPS and current symptoms have fully changed her life. She is no longer able to work and has lost over 20 lb. She is eating very little and drinking ensure to help stay nutritionally sound. She drink Powerade daily as well as water intake. She is mostly sedentary due to her pain and symptoms. 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 Review of Systems Const All systems reviewed & are unremarkable except as noted in HPI and below ENT Reports dizziness Card Denies chest pain, Denies chest pain at rest, Denies chest pain with activity, Reports rapid heart rate, Denies pedal edema, Denies edema, Denies leg edema, Denies lightheadedness, Denies palpitations, Denies dyspnea, Denies dyspnea on exertion and Denies orthopnea Resp Denies cough, Denies dyspnea and Denies dyspnea on exertion GI Denies hematochezia and Denies change in stool character Musc Details: Complex regional pain syndrome, left neck, left arm, legs Reports abnormal gait, Reports limited range of motion, Reports muscle weakness, Denies numbness and Reports radiating pain into limb Neuro Reports abnormal gait, Reports dizziness and Denies numbness Endo Denies palpitations Physical Exam Vital Signs: Last Vital Signs Pulse 93 04/12/25 13:44 BP 90/52 L 04/12/25 13:44 BMI result Body Mass Index 18.8 Const General: cooperative, healthy appearing, comfortable and no acute distress Orientation/consciousness: patient oriented x3 Neck Neck: Yes normal visual inspection Resp Effort & Inspection: normal respiratory effort Auscultation: clear to auscultation bilaterally, no rales, no rhonchi and no wheezes Cardio Rate: regular rate Rhythm: regular rhythm Heart sounds: S1 normal heart sound present, S2 normal heart sound present, no gallops, no murmurs and no rubs Neuro General: patient oriented x3 Extrem General: Yes normal to inspection Psych Appearance: grossly normal Mental Status: mental status grossly normal Speech and movement: Normal speech and movement present Results Reviewed Results Reviewed: - Echocardiogram: EF 61%, no valvular or regional wall motion abnormalities. - Holter Monitor: Sinus rhythm, average HR 84, rare supraventricular and mode tricular ectopy, 1 triplet, no significant runs or pauses. - Tilt Table Test (April 05, 2025): Findings consistent with orthostatic hypotension. Assessment & Plan Assessment & Plan (1) Orthostatic hypotension: Code(s): I95.1 - Orthostatic hypotension Category: Medical Plan: Symptoms of heart palpitations and lightheadedness. Echocardiogram shows normal EF and no valve or regional wall motion abnormalities. Her Holter monitor shows no concerning findings. Her tilt-table test shows finding of orthostatic hypotension. She has been instructed to increase fluids and salt. She was instructed on compression stocking use. She says with her CRPS she may not be able to tolerate the use of tight socks. Reviewed recognizing symptoms and sit/lay down if she becomes lightheaded. On my exam today she was not orthostatic however initial blood pressure was low. Cardiology follow-up 2 months to evaluate effectiveness of conservative treatment. (2) Dizziness: Code(s): R42 - Dizziness and giddiness Category: Medical Plan: As above (3) Palpitations: Code(s): R00.2 - Palpitations Category: Medical Plan: Reports of heart palpitations like her heart is beating fast and fluttering at times. Holter monitor did not show anything concerning. She did have rare ectopy which may be contributing to her fluttering. Her symptoms correlated with sinus rhythm/sinus tach. Reviewed this with her. Reduction in caffeinated beverages reviewed (4) Complex regional pain syndrome of left upper extremity: Code(s): G90.512 - Complex regional pain syndrome I of left upper limb Category: Medical Qualifiers: Complex regional pain syndrome type: type I Qualified Code(s): G90.512 - Complex regional pain syndrome I of left upper limb Plan: Follows with neurology. Plan I discussed with the patient the likely diagnosis of orthostatic hypotension as suggested by the tilt table test results. Management options include increased fluid and salt intake, with salt tablets as an adjunct to dietary intake. Potential benefits include improved blood pressure stability. Risks of excessive salt intake were discussed with instructions to monitor intake levels. The utility of compression stockings as a non-pharmacologic approach to support venous return was recommended, albeit with softer alternatives to address patient tolerance. The impact of Complex Regional Pain Syndrome on cardiovascul ar health and symptomatology is acknowledged as a point of further exploration. Reassessment of symptoms, blood pressure, and overall health will occur at the next follow-up. Blood pressure Patient Instructions: - Increase daily fluid intake to at least 64 -80 ounces. - Incorporate more salt into your diet; consider using salt tablets if needed. - Try softer compression stockings - for blood pressure support ( gave her pair from our stock). - Monitor blood pressure periodically and report significant changes. - Follow up in two months for reassessment. - Seek medical attention if experiencing severe symptoms or new concerns. Patient was informed and verbally consented to the use of an ambient scribe for clinic note documentation during this visit. Visit time spent on chart review, interview, assessment, orders, documentation. Coding Level of Care Code Est Pt Level 4 (87471) Complex EM visit Add On G2211 Diagnoses Orthostatic hypotension I95.1 Dizziness R42 Palpitations R00.2 Complex regional pain syndrome type 1 of left upper extremity G90.512 Complex regional pain syndrome type: type I Time Spent (min) 36
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
== END 2025-04-12 14:36 | disposition home or self-care (01) ==
LOC: HO.HCS 13:41
PROVIDERS: Visit Provider Nurse Practitioner Family
DX: I95.1 Orthostatic hypotension (principal); R42 Dizziness and giddiness; R00.2 Palpitations; G90.512 Complex regional pain syndrome I of left upper limb
CPT/HCPCS: 99214; G2211

== ENCOUNTER → 2025-04-12 13:41 | Outpatient (BNVA) | payer OTHER, SELFPAY | PROVIDERS: Visit Provider Nurse Practitioner Family | DX: I95.1 Orthostatic hypotension (principal); R42 Dizziness and giddiness; R00.2 Palpitations; G90.512 Complex regional pain syndrome I of left upper limb | CPT/HCPCS: 99212 ==

== ENCOUNTER 2025-05-24 12:42 | Outpatient (AMB) | payer OTHER, SELFPAY ==
--- OUTSIDE RECORDS SUMMARY | 2025-05-19 23:59 | XMS_ITS | Continuity of Care Document ---
Author Organization [facility]surger y [address], [address] [place] [address]- Care Team Providers Care Fishing Reel Assembler Name Role Phone Quiana MENENDEZ, Ho Humphrey Primary Care Physician Encounter [facility] Date(s): 04/19/25 - 05/19/25 [facility] Neurosurgery [address] [place] [address] Drive [address] [place], [place] [address] Encounter Type: Triage Allergies, Adverse Reactions, Alerts [...] 10/03/06 Give n Influenza Virus Vaccine (oldterm) 2019 Recorde d Influenza Virus Vaccine (oldterm) 2 [...] Note: VIS GIVEN 4Admin Note: TD Medications BACLOFEN 10 MG TABLET BACLOFEN 10 MG TABLET, TAKE 1 TABLET BY MOUTH THREE TIMES A DAY NEEDED FOR MUSCLE SPASM Start Date: 08/01/24 Status: Ordered Repeat number: 1 fluconazole 150 mg oral tablet See Instructions, 1 tablet By Mouth Once, repeat in 72hrs x2., # 3 tablet, 1 Refills, Soft Stop, 08/06/24 12:19:00 PM EDT, [facility]/pharmacy #[id number], Partial fill upon patient request if [...] Date: 08/01/24 Status: Ordered Repeat number: 1 Ventolin HFA [...] Confirmed Active Dyspareunia in female Confirmed Active Social History Social History Type Response Smoking Status Never (less than 100 in lifetime) entered on: 04/12/24 Sex Sex Representation Female (finding) Patient Care team information Care Team Personnel Name: Verenice Ferrara RN Position: [facility] AMB Nurse Member Role: Primary Care Nurse Name: Marilyn Luna RN Position: [facility] RN Member Role: Primary Care Nurse Name: Quiana MENENDEZ, Ho Humphrey Position: Reference Physician Member Role: PCP Telecom: Name: Madison Savage LPN Position: [facility] RN Member Role: Primary Care Nurse Care Team Related Persons Name: MARLYN HOWARD Name: SIMON HOWARD Name: REHAN DIXON Name: EVY LAWTON Name: ANTWON NAVA Insurance Providers Guarantor name: JARRETT LAWTON Health Plan Information #: 1 Payer: [employer] Payer Identifier: NA Member Number: [id number] Group Number: [id number] Subscriber Identifier: [id number] Relationship to Subscriber: self Coverage Type: NA Coverage Verification Date: NA Telecom: NA Address:
[2025-05-24 12:40] VITALS: BP 90/72; PULSE 93; O2SAT 98; BMI 18.2
--- NOTE | 2025-05-24 12:40 | A.OFFVIS_ITS ---
Vital Signs 05/24/25 12:40 Height 5 ft 8 in Weight 120 lb BMI 18.2 BP 90/72 Blood Pressure Location Rt brachial Position Sitting Pulse 93 Pulse Source Pulse Oximeter Pulse Oximetry (%) 98 Oxygen Delivery Method Room Air Intake Visit Reasons: Botox Security Site Supervisor Required: No Accompanied by: Self / Same As Patient Allergies ibuprofen (From Motrin) Allergy (Severe, Verified 05/24/25 12:47) Unknown metoclopramide (From REGLAN) Allergy (Mild, Verified 05/24/25 12:47) ANXIETY Penicillins (PENICILLINS) Allergy (Unknown, Verified 05/24/25 12:47) RASH Medication List - Last Reconciled 05/24/25 by Beatris Ramsay MD albuterol sulfate mg inhalation baclofen 10 mg PO TID PRN cetirizine 10 mg PO DAILY cholecalciferol (vitamin D3) 1,250 mcg PO QWEEK 12 days cyanocobalamin (vitamin B-12) 500 mcg PO DAILY 30 days docusate sodium 100 mg PO BID fluticasone propionate 50 mcg/actuation 1 spray intranasal BID lidocaine 5% 1 patch topical DAILY lorazepam 1 mg PO BID magnesium oxide 400 mg PO BEDTIME 30 days naratriptan take 1 tab at onset of headache; if no relief may repeat 1 tab after at least 4 hrs; max = 2 tabs/24 hrs PO 30 days onabotulinumtoxinA (Botox) 200 units IM ONCE 12 weeks ondansetron HCl 8 mg PO DAILY oxcarbazepine 150 mg PO BID 30 days pantoprazole mg PO DAILY polyethylene glycol 3350 (Gavilax) grams PO pregabalin 200 mg PO TID 30 days riboflavin (vitamin B2) 400 mg PO DAILY 30 days rimegepant (Nurtec ODT) 75 mg PO ONCE PRN 30 days MDD 1 tab sennosides (senna) 8.6 mg PO DAILY zolpidem 5 mg PO BEDTIME PRN HPI Comments Details: ? 34y/o female comes for treatment of migraines with botox. ??? Most frequent reported adverse reactions following injection of botox for chronic migraine include neck pain (9%), headache(5%), eyelid ptosis(4%), migraine(4%), muscular weakness(4%), musculuskeletal stiffness(4%), bronchitis(3%), injection site pain (3%), musculoskeletal pain(3%), myalgia(3%), facial paresis(2%), HTN(2%) and muscle spasms(2%) were discussed in detail. ??? Botulinum toxin typeA 200units Lot no [id number] expiration February 2027 was diluted with 4 cc of normal saline . ??? Muscles injected- ??? Frontalis 4 sites ??? Procerus 1 site ??? Hat Band Attacher- 2 sites ??? Temporalis- 8 sites ??? Occipitalis- 6 sites ??? Cervical paraspinals- 4 sites ??? Trapezius- 6 sites- 5 units each left levator 45 units ??? 5 units each in 31 site ??? Total use- 200 units ??? 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 Physical Exam Vital Signs: Last Vital Signs Pulse 93 05/24/25 12:40 BP 90/72 05/24/25 12:40 Pulse Ox 98 05/24/25 12:40 Oxygen Delivery Method Room Air 05/24/25 12:40 BMI result Body Mass Index 18.2 Const General: cooperative and no acute distress Orientation/consciousness: patient oriented x3 Resp Effort & Inspection: normal respiratory effort and able to speak in complete sentences Neuro General: patient oriented x3 Cognition (Neuro): normal cognition Office Procedures Botulinum toxin Injection 01205 - Migraine Procedure code (CPT) selection complete Office Meds onabotulinumtoxinA 200 unit solution for injection Performing Provider: Beatris Ramsay MD Performing Location: [facility] Administered by: Beatris Ramsay MD on 05/24/25 13:21 Dose Route Admin Location Dispensed Lot Number Expiration Date [facility] [employer]eder 200 unit subcut 200 units [id number] ALLERGAN /BOTOX Total Dispensed Waste 200 units 0 % Comments: see HPI Assessment & Plan Assessment & Plan (1) Chronic migraine without aura: Code(s): G43.709 - Chronic migraine without aura, not intractable, without status migrainosus Category: Medical Qualifiers: Status migrainosus presence: without status migrainosus Intractability: intractable Qualified Code(s): G43.719 - Chronic migraine without aura, intractable, without status migrainosus Plan Patient tolerated the procedure well she will call with any side effects Orders: Orders AMB Botulinum toxin Injection Today G43.719 - Chronic migraine without aura, intractable, without status migrainosus Coding Level of Care Code Est Pt Level 1 (62203) Diagnoses Intractable chronic migraine without aura and without status migrainosus G43.719 Status migrainosus presence: without status migrainosus Intractability: intractable CPT Codes Botox Injection - Botox 3: 17405 - Migraine ([id number])
--- OUTSIDE RECORDS SUMMARY | 2025-05-24 13:44 | XMS_ITS | Clinical Summary ---
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 is POTS, it looks more like orthostatic hypotension . I have asked her to significantly increase her salt intake before she sees Dr Oshea next week. Her fluid intake seems appropriate. Tilt Table Patient lied supine for 5 minutes for equilibrium. Baseline ECG showed normal sinus rhythm. Baseline supine minimum BP: 110/63 mmHg Baseline supine minimum HR: 88 bpm Patient tilted to 70 degrees. Tilt maintained for 20 minutes. Minimum BP during tilt: 109/70 mmHg Maximum BP during tilt: 124/76 mmHg Minimum heart rate during tilt: 90 bpm Maximum heart rate during tilt: 112 bpm Rhythm during tilt: sinus tachycardia There was a clear orthostatic response not noted. Patient experienced an exaggerated HR increase with tilt. Symptoms seen on tilt include: dizziness. Premonitory symptoms were reproduced. Nitroglycerin was given during the test. Minimum BP under nitroglycerin: 72/41 Maximum BP under nitroglycerin: 121/67 Minimum HR under nitroglycerin: 94 Maximum HR under nitroglycerin: 132 Rhythm after nitroglycerin administration was sinus tachycardia. Symptoms seen after the nitroglycerin dose include: light headedness and nausea and diaphoresis. Premonitory symptoms were reproduced. Syncope/presyncope symptoms were reproduced. Conclusion: Abnormal tilt test with findings consistant with orthostatic hypotension. us Woodrow Oshea MD [facility] CARDIAC SERVICES PROCEDURES F inal Result * External Vascular Ultrasound (03/21/2025) Anatomical Region Laterality Modality Ultrasound Provider [facility] CV VASCULAR PROCEDURES F inal Result * Depression Screening (05/12/2024) [facility] Depression Screening abstracted Kimi Provider HEALTH MAINTENANCE Final Result * Lipid panel (05/12/2024) [facility] LDL/HDL Ratio 3 0 - 4 [...] or Most Recently Relevant to Health Maintenance Additional Health Concerns Infection Onset Date Last Indicated Enteroaggregative E. coli (EAEC) 05/10/2025 05/10/2025 Insurance [facility] Care Teams Desk Officer Relationship Specialty Start Date End Date Ho Araya MD [address] [place] [id number] PCP - General Internal Medicine 07/25/15
--- OUTSIDE RECORDS SUMMARY | 2025-05-24 13:44 | XMS_ITS | Clinical Summary ---
Author Organization [facility] Address [address] [place] [address] Care Team Providers Care Dipper And Drier Name Role Phone Ho Araya MD Primary Care Provider [phone] Allergies Active Allergy Reactions Criticality Noted Date [...] 91 07/13/2024 11:07 AM EDT Temperature 37.2 C (99 F) 07/13/2024 11:07 AM EDT Respiratory Rate - [...] Screening (Pap Smear) 2013 Influenza Vaccine (#1) 2025 , 08/28/2020, 08/02/2019, Additional history exists Pneumococcal Vaccine Aged Out No long er eligible based on patient's age to complete this topic RSV Ped < 20 months Aged Out No longe r eligible based on patient's age to complete this topic Care Teams Dipper And Drier Relationship Specialty Start Date End Date Ho Araya MD PCP - General Internal Medicine 05/19/24
--- OUTSIDE RECORDS SUMMARY | 2025-05-24 13:44 | XMS_ITS | Clinical Summary ---
Author Organization [facility] Address [address] [place] [phone] Phone Care Team Providers Care Meat Curer Name Role Phone Ho Araya MD Primary Care Provider + Social History Tobacco Use Types Packs/Day Years Used Date Smoking Tobacco: Never Assessed Education Answer Date Recorded Are you interested in more education? Not on amor e 05/10/2024 Are you concerned about learning? Not on file 05/10/2024 No 05/10/2024 No 05/10/2024 Digital Access Answer Date Recorded No 05/10/2024 No 05/10/2024 Reliable internet access at home? Not on file 05/10/2024 Device with a working camera? Not on file Comments Unknown Sex and Gender Information Value Date Recorded Sex Assigned at Female 09/01/2024 3:06 PM EDT Legal Sex Female 10:05 AM EDT Gender Identity Female 09/01/2024 3:06 PM EDT Sexual Orientation Straight 09/01/2024 3: 06 PM EDT Plan of Treatment Health Maintenance Due Date Last Done Comments Adult Td,Tdap Booster 1992 DEPRESSION SCREENING 2004 SMOKING Hx and SMOKELESS TOB ACCO SCREENING 2005 HEPATITIS C SCREENING 2010 HIV ONE-TIME SCREENING (18-6 5 YEARS) 2010 PAP SMEAR 2013 COVID-19 VACCINE (2023-2 5 season) 2024 HEPATITIS A VACCINES Aged Out No long er eligible based on patient's age to complete this topic HIB VACCINES Aged Out No longer eligi ble based on patient's age to complete this topic MENINGOCOCCAL VACCINES (ACWY) Aged Out No longer eligible based on patient's age to complete this topic MENINGOCOCCAL VACCINES (B) Aged Out N o longer eligible based on patient's age to complete this topic PNEUMOCOCCAL VACCINES (0-49 years) Aged Out No longer eligible based on patient's age to complete this topic Medical Devices Not on file [place] [place] [id number] [facility] [place] [address] [place] [id number] [facility] Care Teams Meat Curer Relationship Specialty Start Date End Date Ho Araya MD [address] [place] [id number] PCP - General Internal Medicine 09/01/24 Additional Source Comments The information contained in this document represents components of the legal health record. It is not the complete legal health record.[facility]
--- OUTSIDE RECORDS SUMMARY | 2025-05-24 13:44 | XMS_ITS | Clinical Summary ---
Author Organization [facility] Address [address] [place] [address] Care Team Providers Care Eligibility Supervisor Name Role Phone Wendi Toney MD Primary [...] topic Insurance COMMERCIAL on file Care Teams Eligibility Supervisor Relationship Specialty Start Date End Date Wendi Toney MD [address] [place] [address] PCP - General Internal Medicine 08/31/20
--- OUTSIDE RECORDS SUMMARY | 2025-05-24 13:44 | XMS_ITS | Data Portability ---
Author Organization [place] - [facility], Allergy Address [address] [address] Care Team Providers Care Feed Mill Manager Name Role Phone ANNALISASAIDA MARLYN Primary Care Provider [phone] Assessment Encounter Date Assessment Date Assessment LastModified [...] used diagrams to explain middle ear anatomy [email or web address] Not available 05/07/2024 14:27:44 08/06/2024 08/06/2024 33-year-old [...] did order allergy testing at her request. chrissie Not available 08/30/2024 12:02:28 12/30/2024 12/30/2024 The [...] Yes Change in medications: Yes If yes updated medication list Increase in asthma symptoms No If yes, inhaler use: Reaction to last injections: If yes: Allergy Symptoms: PND Other: Missed: Dose Aware of Vial Test Notes:Patient with possible diagnosis of POTS and Heds- asking for blood work for [facility]. Message will be sent to provider. [email or web address] Not available 01/24/2025 10:53:49 Plan of Treatment Reminders Order Date Submit Date Provider Last Modified By Organization Details Last Modified Time Details Appointments Establish ed 15 2024 09:15A M WALE SANTIZO PA-C Not available Not [...] mL injection , auto-inje ctor 2024 025 [facility]acy #[id number], [phone] [place], [address], 12/30/2024 10:26:56 Patient TargetsNo targets recorded. Patient [...] >100. 00 Very High Not Available [facility] ([facility]) [address] [facility], [place], [address], 10/29/2024 23:16:49 10/28/20 24 10/29/2024 ALLER GENS, ZONE 1 X244-XhM D pteronyssinu s 0.16 kU/L class 0/I abnormal Not Available [facility] ([facility]) [address] [facility], [place], [address], 10/29/2024 23:16:49 10/28/20 24 10/29/2024 ALLER GENS, ZONE 1 G348-JwN D farinae 0.12 kU/L class 0/I abnormal Not Available [facility] ([facility]) [address] [place], [address], 10/29/2024 23:16:49 10/28/20 24 10/29/2024 ALLER GENS, ZONE 1 P804-LtJ CAT dander 0.12 kU/L class 0/I abnormal Not Available [facility] ([facility]) [address] [place], [address], 10/29/2024 23:16:49 10/28/20 24 10/29/2024 ALLER GENS, ZONE 1 Q155-FiH dog dander 5.14 kU/L class IV abnormal Not Available [facility] ([facility]) [address] [place], [address], 10/29/2024 23:16:49 10/28/20 24 10/29/2024 ALLER GENS, ZONE 1 h540-UyI bermuda grass <0.10 kU/L class 0 Not Available [facility] ([facility]) [address] [place], [address], 10/29/2024 23:16:49 10/28/20 24 10/29/2024 ALLER GENS, ZONE 1 m426-AzP bluegrass, [place] <0.10 kU/L class 0 Not Available [facility] ([facility]) [address] [place], [address], 10/29/2024 23:16:49 10/28/20 24 10/29/2024 ALLER GENS, ZONE 1 k237-DnQ bahia grass <0.10 kU/L class 0 Not Available [facility] ([facility]) [address] [facility] [place], [address], 10/29/2024 23:16:49 10/28/20 24 10/29/2024 ALLER GENS, ZONE 1 U131-JqH cockroach, bolivian 0.10 kU/L class 0/I abnormal Not Available [facility] ([facility]) [address] [facility] [place], [address], 10/29/2024 23:16:49 10/28/20 24 10/29/2024 ALLER GENS, ZONE 1 M746-UwO penicillium chrysogen <0.10 kU/L class 0 Not Available [facility] ([facility]) [address] [place], [address], 10/29/2024 23:16:49 10/28/20 24 10/29/2024 ALLER GENS, ZONE 1 W235-MjH cladosporium herbarum <0.10 kU/L class 0 Not Available [facility] ([facility]) [address] [place], [address], 10/29/2024 23:16:49 10/28/20 24 10/29/2024 ALLER GENS, ZONE 1 V453-FiB aspergillus fumigatus <0.10 kU/L class 0 Not Available [facility] ([facility]) [address] [place], [address], 10/29/2024 23:16:49 10/28/20 24 10/29/2024 ALLER GENS, ZONE 1 T281-ZuC mucor racemosus <0.10 kU/L class 0 Not Available [facility] ([facility]) [address] [place], [address], 10/29/2024 23:16:49 10/28/20 24 10/29/2024 ALLER GENS, ZONE 1 L574-SgJ alternaria alternata <0.10 kU/L class 0 Not Available [facility] ([facility]) [address] [facility] [place], [address], 10/29/2024 23:16:49 10/28/20 24 10/29/2024 ALLER GENS, ZONE 1 I097-BiG stemphylium herbarum <0.10 kU/L class 0 Not Available [facility] ([facility]) [address] [facility] [place], [address], 10/29/2024 23:16:49 10/28/20 24 10/29/2024 ALLER GENS, ZONE 1 W708-KaF common silver birch 3.39 kU/L class III abnormal Not Available [facility] ([facility]) [address] [facility] [place], [address], 10/29/2024 23:16:49 10/28/20 24 10/29/2024 ALLER GENS, ZONE 1 Q920-GfX oak, white 10.60 kU/L class IV abnormal Not Available [facility] ([facility]) [address] [facility] [place], [address], 10/29/2024 23:16:49 10/28/20 24 10/29/2024 ALLER GENS, ZONE 1 O051-ZwF elm, bolivian <0.10 kU/L class 0 Not Available [facility] ([facility]) [address] [facility] [place], [address], 10/29/2024 23:16:49 10/28/20 24 10/29/2024 ALLER GENS, ZONE 1 I658-JnG samira, white <0.10 kU/L class 0 Not Available [facility] ([facility]) [address] [place], [address], 10/29/2024 23:16:49 10/28/20 24 10/29/2024 ALLER GENS, ZONE 1 H916-RlU maple/box elder 0.23 kU/L class 0/I abnormal Not Available [facility] ([facility]) [address] [facility], [place], [address], 10/29/2024 23:16:49 10/28/20 24 10/29/2024 ALLER GENS, ZONE 1 P432-TeG hazelnut tree 1.25 kU/L class II abnormal Not Available [facility] ([facility]) [address] [facility], [place], [address], 10/29/2024 23:16:49 10/28/20 24 10/29/2024 ALLER GENS, ZONE 1 W901-AnV hickory, white 0.13 kU/L class 0/I abnormal Not Available [facility] ([facility]) [address] [facility], [place], [address], 10/29/2024 23:16:49 10/28/20 24 10/29/2024 ALLER GENS, ZONE 1 J752-IwK white mulberry <0.10 kU/L class 0 Not Available [facility] ([facility]) [address] [facility], [place], [address], 10/29/2024 23:16:49 10/28/20 24 10/29/2024 ALLER GENS, ZONE 1 J445-QeU cedar, mountain <0.10 kU/L class 0 Not Available [facility] ([facility]) [address] [place], [address], 10/29/2024 23:16:49 10/28/20 24 10/29/2024 ALLER GENS, ZONE 1 E116-ZaI ragweed, short <0.10 kU/L class 0 Not Available [facility] ([facility]) [address] [place], [address], 10/29/2024 23:16:49 10/28/20 24 10/29/2024 ALLER GENS, ZONE 1 X309-QmZ mugwort <0.10 kU/L class 0 Not Available [facility] ([facility]) [address] [place], [address], 10/29/2024 23:16:49 10/28/20 24 10/29/2024 ALLER GENS, ZONE 1 T576-KyP plantain, niuean <0.10 kU/L class 0 Not Available [facility] ([facility]) [address] [place], [address], 10/29/2024 23:16:49 10/28/20 24 10/29/2024 ALLER GENS, ZONE 1 I882-AsB pigweed, common <0.10 kU/L class 0 Not Available [facility] ([facility]) [address] [facility], [place], [address], 10/29/2024 23:16:49 10/28/20 24 10/29/2024 ALLER GENS, ZONE 1 C798-TwN sheep sorrel <0.10 kU/L class 0 Not Available [facility] ([facility]) [address] [place], [address], 10/29/2024 23:16:49 10/28/20 24 10/29/2024 ALLER GENS, ZONE 1 N327-WgO nettle <0.10 kU/L class 0 Not Available [facility] ([facility]) [address] [place], [address], 10/29/2024 23:16:49 10/28/20 24 10/29/2024 FOOD ALLER GY PROFI LE S268-FfZ egg white 0.21 kU/L class 0/I abnormal Not Available [facility] ([facility]) [address] [place], [address], 10/29/2024 23:16:50 10/28/20 24 10/29/2024 FOOD ALLER GY PROFI LE V493-IiB peanut <0.10 kU/L class 0 Not Available [facility] ([facility]) [address] [facility], [place], [address], 10/29/2024 23:16:50 10/28/20 24 10/29/2024 FOOD ALLER GY PROFI LE G791-EbW soybean <0.10 kU/L class 0 Not Available [facility] ([facility]) [address] [place], [address], 10/29/2024 23:16:50 10/28/20 24 10/29/2024 FOOD ALLER GY PROFI LE T330-WeA milk 0.66 kU/L class II abnormal Not Available [facility] ([facility]) [address] [place], [address], 10/29/2024 23:16:50 10/28/20 24 10/29/2024 FOOD ALLER GY PROFI LE S408-VmB clam <0.10 kU/L class 0 Not Available [facility] ([facility]) [address] [place], [address], 10/29/2024 23:16:50 10/28/20 24 10/29/2024 FOOD ALLER GY PROFI LE L106-YpS shrimp 0.10 kU/L class 0/I abnormal Not Available [facility] ([facility]) [address] [place], [address], 10/29/2024 23:16:50 10/28/20 24 10/29/2024 FOOD ALLER GY PROFI LE J973-ChD walnut <0.10 kU/L class 0 Not Available [facility] ([facility]) [address] [place], [address], 10/29/2024 23:16:50 10/28/20 24 10/29/2024 FOOD ALLER GY PROFI LE O617-NlQ codfish <0.10 kU/L class 0 Not Available [facility] ([facility]) [address] [place], [address], 10/29/2024 23:16:50 10/28/20 24 10/29/2024 FOOD ALLER GY PROFI LE F662-IsJ scallop <0.10 kU/L class 0 Not Available [facility] ([facility]) [address] [facility], [place], [address], 10/29/2024 23:16:50 10/28/20 24 10/29/2024 FOOD ALLER GY PROFI LE G969-MiJ wheat <0.10 kU/L class 0 Not Available [facility] ([facility]) [address] [place], [address], 10/29/2024 23:16:50 10/28/20 24 10/29/2024 FOOD ALLER GY PROFI LE F177-QkP corn <0.10 kU/L class 0 Not Available [facility] ([facility]) [address] [place], [address], 10/29/2024 23:16:50 10/28/20 24 10/29/2024 FOOD ALLER GY PROFI LE K130-TaZ sesame seed <0.10 kU/L class 0 Not Available [facility] ([facility]) [address] [facility], [place], [address], 10/29/2024 23:16:50 10/28/20 24 10/29/2024 IMMUN OGLOB ULIN E, TOTAL immunoglobul in E, total 81 IU/mL 6-495 Not Available [facility] ([facility]) [address] [place], [address], 10/29/2024 23:16:50 06/23/20 24 03/18/2024 imagi ng/di agnos tic resul t No observ ation record ed. [email or web address] Not Available 21:06:53 08/06/20 audio gram No observ ation record ed. [email or web address] Not Available 2023 15:00:15 10/25/20 24 audio gram No observ ation record ed. [email or web address] Not Available 08/04 11:42:10 Result Notes None recorded. Problems Name Problem SNOMED Code Status Onset Date Resolution Date Notes Provider Name and Address Organization Details Recorded Time Mass of neck 784313539 Active 2014 Localized swelling, mass and lump, neck; Note: Date Diagnosed : 5 5:39 AM (R22.1) Not Available [facility] 4 02:30:45 Neck swelling 617897415 Active 2014 Localized swelling, mass and lump, neck; Note: Date Diagnosed : 5 5:39 AM (R22.1) Not Available [facility] 4 02:30:45 Chronic pharyngit is 639440 Active 2016 Chronic sore throat; Note: Date Diagnosed : 11/08/2016 2:47 PM (J31.2) Not Available [facility] 4 02:30:50 Gastroeso phageal reflux disease without esophagit is 265276121 Active 2016 Gastro-es ophageal reflux disease without esophagit is; Note: Date Diagnosed : 11/08/2016 2:47 PM (K21.9) Not Available [facility] 4 02:30:44 Lesion of oral mucosa 74184502961 10826 Active 2016 Other lesions of oral mucosa; Note: Date Diagnosed : 11/08/2016 2:53 PM (K13.79) Not Available [facility] 4 02:31:01 Tinnitus of left ear 47839209657 06 Active 2023 LAVONNE RODRIGUEZ MD [address] [place] [address],[place] [address], [place], [address] , [place] - [facility] 4 11:32:24 Migraine 35320421 Active 2023 LAVONNE RODRIGUEZ MD [address] [place] [address],[place] [address], [place], [address] , [place] [facility] 4 11:32:34 Pharyngea l dysphagia 67764865737 105 Active 2023 LAVONNE RODRIGUEZ MD [address], [place], [address] , [place] [facility] 4 11:32:47 Abnormal auditory perceptio n 83839272 Active 2023 LAVONNE RODRIGUEZ MD [address], [place], [address] , [place] [facility] 4 11:33:02 Abnormal auditory perceptio n 12002734 Active 2023 LION HEREDIA MD [address], [place], [address] , [place] [facility] 4 14:26:32 Neck pain 48405795 Active 2023 LION HEREDIA MD [address] [place],[address], [place], [address] , [place] [facility] 4 14:26:40 Pain of left temporoma ndibular joint 54454502724 188797 Active 2023 LION HEREDIA MD [address] [facility] [place],[address], [place], [place], [address] , [place] [facility] 4 14:26:28 Posterior rhinorrhe a 58249421 Active 2023 MARY SCHREIBER PA-C [address] [place],[address], [place], [place], [address] , [place] [facility] 4 10:48:17 Allergic rhinitis 22182026 Active 2023 MARY SCHREIBER PA-C [address], [place], [address] , [place] [facility] 4 10:48:34 Perennial allergic rhinitis 665895606 Active 2023 PATIENCE PRADO, [facility] [address], [place], [address] , [place] [facility] 4 08:39:44 Problem Notes None recorded. Procedures Surgical History Date Name Laterality Status Provider Name and Address Organization Details Recorded Time 01/25/20 25 Allergy Immunotherapy Injections completed BERTIN PAIGE RN 100 [facility],[address], [address], [facility] - [facility] 01/24/2025 10:49:11 08/27/20 24 Tympanometry - 46967 completed GIRISH CRESPO [address], [address], [facility] - [facility] 08/27/2024 10:00:48 08/06/20 24 Air & Speech Audio with Tymps - 91221, 26268 & 92353 completed SIMBA ALEGRE [place], CCC-A [address] [facility],[address], [address], [facility] - [facility] 08/06/2024 14:03:16 03/18/20 24 Fiberoptic Laryngoscopy (Comprehensive) completed LAVONNE SIM MD 100 [facility],[address], [address], [facility] - [facility] 03/18/2024 11:32:05 03/18/20 24 Air only Audio - 58275 completed MELODIE DELCID [address] [place] [address],[address], [address], [facility] - [facility] 03/18/2024 11:52:00 03/18/20 24 SRT & Speech Recognition - 64405 completed MELODIE DELCID [address] [place] [address],[address], [address], [facility] - [facility] 03/18/2024 11:52:17 11/03/19 18 removal of sebaceous cyst completed Rizwan Castillo [place] - [facility] 03/18/2024 11:23:09 11/03/19 17 Breast augmentation w/implt completed Rizwan Castillo [place] - [facility] 03/18/2024 11:23:46 therapeutic cervical epidural injection completed LAVONNE SIM MD 100 [facility],[address], [address], [place] - [facility] 03/18/2024 11:24:17 Imaging Results None recorded. Procedure Notes None recorded. Medical Equipment None Reported. Allergies Allergen ID Allergen Name Allergen Category Reaction Reaction Severity Criticality Documentation Date Start Date Code Code System Note Provider Name and Address Organization Details Recorded Time 72605 penicilli n V potassium medicatio n rash Not available Not available 03/16/2024 38673 5 RxNorm React ion: unkno wn, unspe cifie d;; Not Available [facility] 00:54:41 Medications Name Sig Start Date Stop Date Status Note LastModified by Organization Details LastModified Time quetiapin e 25 mg tablet TAKE 1 TABLET BY MOUTH THREE TIMES A DAY NEEDED 01/03 completed Not Available Not Available Not Available cyclobenz aprine 10 mg tablet TAKE 1 TABLET BY MOUTH THREE TIMES A DAY active Not Available Not Available No t Available methocarb nalini 500 mg tablet TAKE 1 TABLET BY MOUTH FOUR TIMES A DAY active Not Available Not [...] completed Not Available Not Available Not Available hydrocodo ne 5 mg-acetam inophen 325 mg tablet PLEASE SEE ATTACHED FOR DETAILED DIRECTIO NS [...] Available Not Available Not Available phenazopy ridine 200 mg tablet TAKE 1 TABLET BY MOUTH 2 TIMES PER DAY FOR 2 DAYS active Not Available Not Available No [...] baclofen 10 mg tablet TAKE 1 TABLET ORALLY 3 TIMES A DAY NEEDED FOR FOR MUSCLE SPASM active Not Available Not Available No t Available cephalexi n 500 mg capsule TAKE 1 CAPSULE BY MOUTH THREE TIMES A DAY FOR 7 DAYS 05/24 completed Not Available Not Available Not Available pantopraz ole 40 mg tablet,de layed release TAKE 1 TAB BY MOUTH 2X A DAY. TAKE ON EMPTY STOMACH WAIT 30 MINS & THEN EAT B4 BREAKFAS T AND SUPPER active Not Available Not Available No t Available nortripty line 10 mg capsule TAKE 1 CAPSULE BY MOUTH TWICE A DAY active Not Available Not Available No t Available dexametha sone 4 mg tablet TAKE 1 TABLET BY MOUTH EVERY DAY FOR 10 DAYS 12/30 completed Not Available Not Available Not Available prednison e 50 mg tablet TAKE 1 TABLET BY MOUTH EVERY DAY FOR 5 DAYS active Not Available Not Available No t Available fluoromet holone 0.1 % eye drops,koffi [...] Not Available Not Available No t Available levofloxa nasra 750 mg tablet TAKE 1 TABLET BY MOUTH EVERY DAY FOR 7 DAYS 05/24 completed Not Available Not Available Not Available methylpre dnisolone 4 mg tablets in a dose pack TAKE 6 TABLETS ON DAY 1 DIRECTED ON PACKAGE AND DECREASE BY 1 TAB EACH DAY FOR A TOTAL OF 6 DAYS 12/30 completed Not Available Not Available Not Available hydromorp stacey 4 mg tablet TAKE 1 TABLET BY MOUTH EVERY 6 HOURS NEEDED FOR SEVERE PAIN active Not Available Not Available No t Available hydroxyzi ne HCl 10 mg tablet TAKE 1 TABLET BY MOUTH EVERY NIGHT AT BEDTIME NEEDED active Not Available Not Available No t Available ondansetr on 4 mg disintegr ating tablet TAKE 1 TABLET BY MOUTH EVERY 8 HOURS NEEDED FOR NAUSEA FOR UP TO 7 DAYS active Not Available Not Available [...] mg tablet TAKE 1 TABLET BY MOUTH 1 TIME EACH DAY FOR 3 DAYS. active Not Available Not Available No t Available Restasis 0.05 % eye drops in a dropperet te INSTILL 1 DROP INTO BOTH EYES TWICE A DAY active Not Available Not Available No t Available ciproflox acin 0.3 %-dexamet hasone 0.1 % ear drops,koffi pension INSTILL 4 DROPS INTO AFFECTED EAR(S) TWICE A DAY FOR 7 DAYS 12/30 completed Not Available Not Available Not Available nitrofura ntoin monohydra te/macroc rystals 100 mg capsule TAKE 1 CAPSULE BY MOUTH 2 TIMES PER DAY FOR 5 DAYS. MUST ADMINIST ER WITH A MEAL/ROBERTO CARLOS D 05/24 completed Not Available Not Available Not Available pregabali n 150 mg capsule TAKE 1 CAPSULE BY MOUTH THREE TIMES A DAY 01/24 completed Not Available Not Available Not Available pregabali n 200 mg capsule TAKE 1 CAPSULE BY MOUTH 3 TIMES A DAY FOR 30 DAYS active Not Available Not Available No t Available pregabali n 225 mg capsule TAKE [...] (vitamin D3) 1,250 mcg (50,000 unit) capsule TAKE 1 CAPSULE BY MOUTH ONCE WEEKLY active Not Available Not Available No t Available levocetir izine 5 mg tablet TAKE 1 TABLET (ORAL) EVERY EVENING FOR 90 DAYS 01/24 completed Not Available Not Available Not Available omeprazol e 20 mg tablet,de layed release 1 tablet 2016 active Medicati on ID: [id number] Xochilt [place] By Name: Colleen jensen MD Brand Name: [...] Available Not Available No t Available Linzess 72 mcg capsule TAKE 1 CAPSULE (72 MCG TOTAL) BY MOUTH DAILY BEFORE BREAKFAS T active Not Available Not Available No t Available Nurtec ODT 75 mg disintegr ating tablet DISSOLVE 1 TABLET ORALLY ONCE NEEDED FOR MIGRAINE HEADACHE FOR 30 DAYS, MAX DAILY DOSE: 1 TAB active Not Available Not Available No t Available Vitals Date Recorded Body height Body mass index (BMI) Body weight Provider Name and Address Organization Details Last Updated DateTime 12/30/2024 167.64 cm 20.3 kg/m2 81627.64 g Renetta Moulton [place] - [facility] 12/30/2024 10:12:43 Date Recorded Body height Body mass index (BMI) Body weight Heart rate Systolic And Diastolic Provider Name and Address Organization Details Last Updated DateTime 01/24/2025 170.18 cm 19.4 kg/m2 69272.45 g 82 /min 107/71 mm[Hg] BERTIN PAIGE, [place] [address], [address] , [place] - [facility] 01/24/2025 10:28:45 Date Recorded Body height Body mass index (BMI) Body weight Provider Name and Address Organization Details Last Updated DateTime 05/07/2024 167.64 cm 20.7 kg/m2 50294.82 g Kike Casanova [place] - [facility] 05/07/2024 14:00:00 Date Recorded Body height Body mass index (BMI) Body weight Provider Name and Address Organization Details Last Updated DateTime 08/06/2024 167.64 cm 19.4 kg/m2 04170.08 g Rizwan Castillo [facility] 08/06/2024 14:18:43 Date Recorded Body height Body mass index (BMI) Body weight Provider Name and Address Organization Details Last Updated DateTime 08/27/2024 167.64 cm 19.4 kg/m2 06546.08 g Kike Casanova [facility] 08/27/2024 09:35:59 Social History None recorded. Functional Status Question Answer Note LastModified by Organizat ion Details LastModified Time Do you use any illicit or recreational drugs? No Information not available 03/18/2024 Do you or have you ever used any other forms of tobacco or nicotine? No [email or web address] Information not available 03/18/2024 What is your level of alcohol consumption? None [email or web address] Information not available 03/18/2024 Mental Status None [...] Note 512 LAVONNE RODRIGUEZ MD [facility] [address] [address] 03/18/2024 11:13:52 03/18/2024 12:02:33 Tinnitus of left ear 8042172760 106 H93.12 Hearing within normal limits AU.Type A tympanogra ms AU. Migraine 47968390 G43.90 9 Pharyngeal dysphagia 605 7149491 9105 R13.13 She notes a sensation of randomly having a cough with saliva or fluids. Transnasal fiberoptic laryngosco py shows normal vocal fold mobility and no masses Abnormal a uditory perception 80949976 H93.292 Patient presents with sensation of fullness, [...] about fluid in the ear Neck pain 12901293 M54.2 6669 LION HEREDIA MD [facility] [address] [address] 05/07/2024 13:53:44 05/07/2024 14:43:55 Pain of left temporomandibular joint 1342794662 3490104 M26.622 Abnormal a uditory perception 52343131 H93.292 Neck pain 41804746 M54.2 64840 NEMESIO MENDEZ PA-C [facility] [address] [address] 08/06/2024 13:30:04 08/06/2024 17:05:24 Abnormal auditory perception 92884381 H93.299 Audiologic al evaluation results: Right ear: Normal hearing with excellent word recognitio n. Left ear: Normal hearing with excellent word recognitio n. Tympanomet ry: Right Ear:Type A Left Ear:Type A 67640 MARY SCHREIBER PA-C [facility] [address] [address] 08/27/2024 09:33:34 08/27/2024 10:32:43 Abnormal auditory perception 62037009 H93.299 Tympanomet ry: Right Ear:Type A Left Ear:Type A Posterior rhinorrhea 758 00438 R09.82 Allergic rhinitis 551246 04 J30.9 90557 WALE SANTIZO PA-C [facility] [address] [place] [address] 12/30/2024 10:02:27 12/30/2024 10:38:00 Allergic rhinitis 06665885 J30.89 Chronic pharyngitis 1400 04 J31.2 Pain of le ft temporomandibular joint 5708937585 6242487 M26.622 Tinnitus of left ear 247 5622469 106 H93.12 37430 BERTIN PAIGE RN Allergy [address] [place] [address] [place] [address] 01/24/2025 10:02:49 01/24/2025 10:54:21 Perennial allergic rhinitis 129742529 J30.89 Health Concerns Section Related Observation LastModified by Organization Detai ls LastModified Time None Recorded Concern Status LastModified by Organization Details LastModified Time None Recorded Advance Directives Directive None Recorded Payers Insurance Date Sequence Insurance Name Policy Number Policy [place] Covered Member ID [place] Member ID Guarantor Name 05/24/2025 1 [facility] (MEDICAID REPLACEMENT - HMO) JOSRMAKEDANURIA Dykes [id number] Alondra Dykes Notes Date Note Type Note [...] on her saliva LION HEREDIA MD [facility] [place], [address], [facility] 05/07/2024 14:27:55 08/06/2024 text/html 33-year-old fema [...] occasional room-spinning dizziness. LION HEREDIA MD [facility] [place] [address], [place], [phone], [facility] 08/06/2024 17:16:04 08/27/2024 text/html 33-year-old fema [...] taking Zyrtec daily. LAVONNE SIM MD [address] [facility] [place],[address], [place], [address], [facility] 08/30/2024 12:02:43 12/30/2024 text/html 34-year-old fema le with chronic regional pain syndrome and left TMJ presents for allergy test results. She reports her left sided ear pain and pressure are stable. Allergy testing demonstrated moderate sensitivity to dog dander, birch tree, and oak tree. Patient reports her allergy symptoms do not improve with gytb-hbm-pewdvel Zyrtec and Flonase, which she has been taking daily for 7 months. MP SRIVASTAVA MD [address] [place] [address], [phone], [facility] - [facility] 12/31/2024 08:08:47 OBGyn Episode No OBEpisode recorded.
--- OUTSIDE RECORDS SUMMARY | 2025-05-24 13:44 | XMS_ITS | Encounter Summary ---
Author Organization [facility] Address [address] [place] [address] Care Team Providers Care Neuro Psych Sales Specialist Name Role Phone QuianaHo Primary Care Provider [phone] Reason for Referral * Surgical (Routine) - Authorized Specialty Diagnoses / Procedures Referred By Arron yates Referred To Contact Vascular Surgery Diagnoses Complex regional pain syndrome type 1 of left upper extremity Beatris Ramsay [address] [place] [address] Phone: tel: fax: [facility] Surgery [address] [place] [address] Phone: tel: fax: Referral ID Status Reason Start Date Expiration Date Visits Requested Visits Authorized [id number] Authorized Specialty Services Required 03/02/2025 04/01/2026 6 6 Encounter Details Date Type Department Care Team (Latest Contact Info) Description 03/02/2025 Transcribe Orders [facility] Vascular Surgery [address] [place] [address] Reinforcing Steel Worker: Beatris Tejada [address] [place] [address] Complex regional pain syndrome type 1 of left upper extremity (Primary Dx) Social History Tobacco Use Types Packs/Day Years Used Date Smoking Tobacco: Never Assessed Comments Unknown Sex and Gender Information Value Date Recorded Sex Assigned at Female 11/15/2024 9:11 AM EST Legal Sex Female 9:09 AM EST Gender Identity Not on file Sexual Orientation Not on file documented as of this encounter Plan of Treatment Upcoming Encounters Date Type Department Care Team (Late st Contact Info) Description 07/15/2025 1:00 PM EDT Office Visit [facility] Vascular Surgery [address] [place] [address] Reinforcing Steel Worker: Makayla Mackey MD MPH [address] [place] [address] Scheduled Referrals Name Type Priority Associated Diagnoses Order Schedule Ambulatory referral to Vascular Surgery Outpatient Referral Routine Complex regional pain syndrome type 1 of left upper extremity Expected: 03/02/2025, Expires: 04/01/2026 documented as of this encounter Visit Diagnoses Diagnosis Complex regional pain syndrome type 1 of left upper extremity- Primary documented in this encounter Care Teams Neuro Psych Sales Specialist Relationship Specialty Start Date End Date Ho Araya [address] [place] [address] PCP - General Internal Medicine 11/15/24 documented as of this encounter
== END 2025-05-24 14:00 | disposition home or self-care (01) ==
LOC: HO.HSMS 12:43
PROVIDERS: PCP Internal Medicine; Visit Provider Psychiatry & Neurology Neurology
DX: G43.719 Chronic migraine without aura, intractable, without status migrainosus (principal)
CPT/HCPCS: 64615

== ENCOUNTER → 2025-05-24 12:42 | Outpatient (BNVA) | payer OTHER, SELFPAY | PROVIDERS: PCP Internal Medicine; Visit Provider Psychiatry & Neurology Neurology | DX: G43.719 Chronic migraine without aura, intractable, without status migrainosus (principal); D72.819 Decreased white blood cell count, unspecified; M79.7 Fibromyalgia; F32.A Depression, unspecified; F41.9 Anxiety disorder, unspecified | CPT/HCPCS: 64615; 99211; J0585 ==

== ENCOUNTER 2025-06-14 13:39 | Outpatient (AMB) | payer OTHER, SELFPAY ==
--- OUTSIDE RECORDS SUMMARY | 2025-06-09 23:59 | XMS_ITS | Continuity of Care Document ---
Author Organization [facility] [address], [address] [place] [address]- Care Team Providers Care Row Boss Name Role Phone Quiana MENENDEZ, Ho Humphrey Primary Care Physician Encounter [facility] Date(s): 04/19/25 - 06/09/25 [facility] [address] [place] [address] Drive [address] [place], [place] [address] Attending Physician: Miki Choe MD Referring Physician: Leslie Palacios NP Encounter Type: Pre Office Visit Allergies, Adverse Reactions, Alerts Substance Criticality Severity [...] Refills, Soft Stop, 08/06/24 12:19:00 PM EDT, [facility]/pharmacy #[id number], Partial fill upon [...] Team Personnel Name: Verenice Ferrara RN Position: [facility] AMB Nurse Member Role: Primary Care Nurse Name: Marilyn Luna RN Position: [facility] RN Member Role: Primary Care Nurse Name: Quiana MENENDEZ, Ho Humphrey Position: Reference Physician Member Role: PCP Telecom: Name: Madison Savage LPN Position: [facility] RN Member Role: Primary Care Nurse Care Team Related Persons Name: MARLYN HOWARD Name: SIMON HOWARD Name: REHAN DIXON Name: EVY LAWTON Name: ANTWON NAVA Insurance Providers Guarantor name: TOMMYVERENICEBINA LAWTON Health Plan Information #: 1 Payer: [employer] Payer Identifier: NA Member Number: [id number] Group Number: [id number] Subscriber Identifier: [id number] Relationship to Subscriber: self Coverage Type: NA Coverage Verification Date: NA Telecom: Address:
[2025-06-14 13:59] VITALS: BP 102/78; PULSE 78; BMI 19.0
--- NOTE | 2025-06-14 13:59 | A.OFFVIS_ITS ---
Vital Signs 06/14/25 13:59 Height 5 ft 8 in Weight 125 lb 3.561 oz BMI 19.0 BP 102/78 Blood Pressure Location Rt brachial Position Sitting Pulse 78 Pulse Source Pulse Oximeter Intake Visit Reasons: 2 mth f/up Wetlands Technician Required: No Accompanied by: Self / Same As Patient Allergies ibuprofen (From Motrin) Allergy (Severe, Verified 06/14/25 14:04) Unknown metoclopramide (From REGLAN) Allergy (Mild, Verified 06/14/25 14:04) ANXIETY Penicillins (PENICILLINS) Allergy (Unknown, Verified 06/14/25 14:04) RASH Medication List - Last Reconciled 06/14/25 by JULIAN MembrenoC albuterol sulfate mg inhalation baclofen 10 mg PO TID PRN cetirizine 10 mg PO DAILY cholecalciferol (vitamin D3) 1,250 mcg PO QWEEK 12 days cyanocobalamin (vitamin B-12) 500 mcg PO DAILY 30 days fluticasone propionate 50 mcg/actuation 1 spray intranasal BID lidocaine 5% 1 patch topical DAILY lorazepam 1 mg PO BID naratriptan take 1 tab at onset of headache; if no relief may repeat 1 tab after at least 4 hrs; max = 2 tabs/24 hrs PO 30 days onabotulinumtoxinA (Botox) 200 units IM ONCE 12 weeks ondansetron HCl 8 mg PO DAILY oxcarbazepine 150 mg PO BID 30 days pantoprazole mg PO DAILY polyethylene glycol 3350 (Gavilax) grams PO pregabalin 200 mg PO TID 30 days riboflavin (vitamin B2) 400 mg PO DAILY 30 days rimegepant (Nurtec ODT) 75 mg PO ONCE PRN 30 days MDD 1 tab sennosides (senna) 8.6 mg PO DAILY zolpidem 5 mg PO BEDTIME PRN HPI HPI 2 mth f/up: Details: Alondra is a 34-year-old female with past medical history of fibromyalgia, complex regional pain syndrome, orthostatic hypotension who presents for follow- up. Today she reports that she has ongoing symptoms of lightheadedness, heart palpitations when upright. She has not had any full presyncope, syncope or falls. She is quite sedentary and limited by her body pain. She says she is very sensitive to changes in temperature and has been mostly staying in her home. Lifestyle modifications with fluid and salt intake have been attempted, without improvement in her symptoms. She was unable to tolerate compression stockings due to significant discomfort when they are applied. She is eating very little and drinking ensure to help stay nutritionally sound. She drinks 2- 3 Powerades daily as well as water intake. She does follow with neurology. 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 Review of Systems Const All systems reviewed & are unremarkable except as noted in HPI and below ENT Reports dizziness (lightheaded) Card Denies chest pain, Denies chest pain at rest, Denies chest pain with activity, Reports rapid heart rate, Reports pedal edema, Denies edema, Reports leg edema, Denies lightheadedness, Reports palpitations, Reports dyspnea, Denies dyspnea on exertion and Denies orthopnea Resp Denies cough, Reports dyspnea and Denies dyspnea on exertion GI Denies hematochezia and Denies change in stool character Musc Reports abnormal gait (foot pain), Denies limited range of motion, Denies muscle cramps, Denies muscle weakness, Denies numbness, Denies radiating pain into limb, Denies stiffness and Denies tingling Neuro Reports abnormal gait (foot pain), Reports dizziness (lightheaded), Denies numbness and Denies tingling Endo Reports palpitations Physical Exam Vital Signs: Last Vital Signs Pulse 78 06/14/25 13:59 BP 102/78 06/14/25 13:59 BMI result Body Mass Index 19.0 Const General: cooperative, healthy appearing, comfortable and no acute distress Orientation/consciousness: patient oriented x3 Neck Neck: Yes normal visual inspection Resp Effort & Inspection: normal respiratory effort Auscultation: clear to auscultation bilaterally, no rales, no rhonchi and no wheezes Cardio Rate: regular rate Rhythm: regular rhythm Heart sounds: S1 normal heart sound present, S2 normal heart sound present, no gallops, no murmurs and no rubs Neuro General: patient oriented x3 Extrem General: Yes normal to inspection Psych Appearance: grossly normal Mental Status: mental status grossly normal Speech and movement: Normal speech and movement present Assessment & Plan Assessment & Plan (1) Orthostatic hypotension: Code(s): I95.1 - Orthostatic hypotension Category: Medical Plan: Symptoms of heart palpitations and lightheadedness. Echocardiogram 02/04/2025 shows normal EF and no valve or regional wall motion abnormalities. Holter m onitor 02/04/2025 for 14 days shows sinus rhythm with average heart rate 84, rare ectopy. Tilt-table test 04/05/2025 shows finding consistent with orthostatic hypotension. She has tried increase fluid and salt intake without improvement in symptoms. Unable to wear compression stockings. Blood pressure low on exam today. Will trial midodrine 2.5 mg t.i.d. to see if this helps symptoms. Continue increased fluid, salt intake. Limit Powerade to 2 per day. Cardiology follow-up 6-8 weeks, sooner if needed. (2) Dizziness: Code(s): R42 - Dizziness and giddiness Category: Medical Plan: As above (3) Palpitations: Code(s): R00.2 - Palpitations Category: Medical Plan: Reports of heart palpitations like her heart is beating fast and fluttering at times. Holter monitor did not show anything concerning. She did have rare ectopy which may be contributing to her fluttering. Her symptoms correlated with sinus rhythm/sinus tach. Reviewed this with her. Reduction in caffeinated beverages reviewed (4) Complex regional pain syndrome of left upper extremity: Code(s): G90.512 - Complex regional pain syndrome I of left upper limb Category: Medical Qualifiers: Complex regional pain syndrome type: type I Qualified Code(s): G90.512 - Complex regional pain syndrome I of left upper limb Plan: Follows with neurology. Plan We discussed the use of midodrine to manage orthostatic hypotension and tachycardia, explaining that it should be taken with meals and not before bed to avoid high nighttime blood pressure. I advised the patient to monitor her symptoms and blood pressure, especially if she feels unwell, and to limit electrolyte drinks to prevent high potassium levels. We also talked about the importance of follow-up with her neurologist for ongoing management of CRPS and fibromyalgia. Medications: New midodrine do not give last dose of day after 6PM or within 4 hrs of bedtime 2.5 mg PO TID 90 tabs 3RF Patient Instructions: - Take midodrine with meals, avoid before bed. - Monitor blood pressure and symptoms regularly. - Limit electrolyte drinks to one per day to avoid high potassium. - Follow up with neurologist for CRPS and fibromyalgia management. Patient was informed and verbally consented to the use of an ambient scribe for clinic note documentation during this visit. Visit time spent on chart review, interview, assessment, orders, documentation. Coding Level of Care Code Est Pt Level 3 (99440) Complex EM visit Add On G2211 Diagnoses Orthostatic hypotension I95.1 Dizziness R42 Palpitations R00.2 Complex regional pain syndrome type 1 of left upper extremity G90.512 Complex regional pain syndrome type: type I Time Spent (min) 22
--- OUTSIDE RECORDS SUMMARY | 2025-06-14 14:36 | XMS_ITS | Clinical Summary ---
Author Organization [facility] Address [address] [place] [address] Phone Care Team Providers Care It Instructor Name Role Phone Ho Araya MD [...] topic Medical Devices Not on file Insurance [address] [employer] [facility] [place] [address] [place] [address] [facility] [place] [address] [place] [address] [facility] Care Teams It Instructor Relationship Specialty Start Date End Date Ho Araya MD [address] [place] [address] PCP - General Internal Medicine 09/01/24 Additional Source Comments The information contained in this document represents components of the legal health record. It is not the complete legal health record.[facility]
--- OUTSIDE RECORDS SUMMARY | 2025-06-14 14:36 | XMS_ITS | Clinical Summary ---
Author Organization [facility] Address [address] [place] [address] Care Team Providers Care Drapery Counselor Name Role Phone Ho Araya MD Primary Care Provider [phone] Allergies Active Allergy Reactions Criticality Noted Date [...] age to complete this topic Care Teams Drapery Counselor Relationship Specialty Start Date End Date Ho Araya MD PCP - General Internal Medicine 05/19/24
--- OUTSIDE RECORDS SUMMARY | 2025-06-14 14:36 | XMS_ITS | Clinical Summary ---
Author Organization [facility] Address [address] [place] [address] Care Team Providers Care Chiropractic Assistant Name Role Phone Wendi Toney MD Primary Care Provider [phone] Social History Tobacco Use Types Packs/Day Years [...] topic Insurance COMMERCIAL on file Care Teams Chiropractic Assistant Relationship Specialty Start Date End Date Wendi Toney MD [address] [place] [address] PCP - General Internal Medicine 08/31/20
--- OUTSIDE RECORDS SUMMARY | 2025-06-14 14:36 | XMS_ITS ---
[facility] Unknown Care Team Organization Name Specialty Phone Email Start Date End Da te [facility] Ho Araya Primary Care 09/10/2022 06/21/20 24
--- OUTSIDE RECORDS SUMMARY | 2025-06-14 14:36 | XMS_ITS | Referral Summary ---
Author Organization [facility] Address [address] [place] [address] Care Team Providers Care Abattoir Manager Name Role Phone Ho Araya Primary Care Provider [phone] Encounters Date Type Department Care Team Description 04/25/2025 Telephone [facility] Vascular Surgery [address] [place] [address] Auto Striper: Makayla Mackey MD MPH 04/15/2025 10:49 AM EDT - 04/15/2025 11:59 PM EDT Hospital Encounter [facility] Xray [address] [place] [address] TOS (thoracic outlet syndrome) Discharge Disposition: Home or Self Care () 04/15/2025 11:20 AM EDT Office Visit [facility] Vascular Surgery [address] [place] [phone] Auto Striper: Makayla Mackey MD MPH TOS (thoracic outlet syndrome) (Primary Dx) from Last 3 Months Allergies Active Allergy Reactions Criticality Noted Date Comments Metoclopramide Unknown,Itching,Othe r (see comments) 03/30/2019 Level of certainty: Very Certain; Other Reaction(s): Akathisia Anxiety Penicillins Rash,Unknown Medium 11/30/2004 Level of certainty: Moderately Certain Medications baclofen (LIORESAL) 10 mg tablet 10 mg 2 times a day as needed. Active pregabalin (LYRICA) 200 mg capsule Take 200 mg by mouth 3 times a day. Active naratriptan (AMERGE) 2.5 mg tablet Take 2.5 mg by mouth once a day. 4 Active food supplemt, lactose-reduced (Ensure) liquid 2 times a day. 4 Active rimegepant ODT 75 mg (Nurtec ODT) 75 mg tablet,disintegrati ng disintegrating tablet Dissolve in the mouth as needed. Active ondansetron (ZOFRAN) 8 mg tablet Take 8 mg by mouth every 8 hours as needed for nausea or vomiting. Active linaCLOtide (Linzess) 145 mcg capsule Take 145 mcg by mouth once a day. Active ergocalciferol (VITAMIN D2) 1,250 mcg (50,000 unit) capsule Take 50,000 Units by mouth once a week. Active hydrOXYzine HCL (ATARAX) 10 mg tablet Take 10 mg by mouth once daily as needed. 5 Active Botox 200 unit recon soln Active sertraline (ZOLOFT) 25 mg tablet Take 25 mg by mouth daily. 4 Active cetirizine (ZyrTEC) 10 mg tablet Take 10 mg by mouth once a day. Active methocarbamoL (ROBAXIN) 500 mg tabletIndications:T OS (thoracic outlet syndrome) Take 1 tablet (500 mg total) by mouth 4 times a day. 120 tablet 2 5 07/14/20 25 Active Social History Tobacco Use Types Packs/Day Years Used Date Smoking Tobacco: Never Passive Smoke Exposure: Past Smokeless Tobacco: Never Tobacco Cessation:Counseling Given: Not Answered Comments Unknown Sex and Gender Information Value Date Recorded Sex Assigned at Female 11/15/2024 9:11 AM EST Legal Sex Female 9:09 AM EST Gender Identity Not on file Sexual Orientation Not on file Last Filed Vital Signs Vital Sign Reading Time Taken Comments Blood Pressure 113/78 04/15/2025 11:25 AM EDT Pulse 84 04/15/2025 11:15 AM EDT Temperature - - Respiratory Rate 16 04/15/2025 11:15 AM EDT Oxygen Saturation 99% 04/15/2025 11:15 AM EDT Inhaled Oxygen Concentration - - Weight 54.9 kg (121 lb) 04/15/2025 11:15 AM EDT Height 170.2 cm (5' 7 ) 04/15/2025 11:15 AM EDT Body Mass Index 18.95 04/15/2025 11:15 AM EDT Plan of Treatment Upcoming Encounters Date Type Department Care Team (Late st Contact Info) Description 07/15/2025 1:00 PM EDT Office Visit [facility] Vascular Surgery [address] [place] [phone] Auto Striper: Makayla Mackey MD MPH [address] [place] [phone] Procedures * Due to [facility] law, this organization might not be sharing negative HIV tests. Procedure Name Priority Date/Time Associated Diagnosis Comments XR CERVICAL SPINE 4 OR 5 VIEWS INCLUDING OBLIQUES Routine 04/15/2025 11:00 AM EDT TOS (thoracic outlet syndrome) from Last 3 Months Results * Due to [facility] law, this organization might not be sharing negative HIV tests. * XR Cervical Spine 4 or 5 Views Including Obliques (04/15/2025 11:00 AM EDT) Anatomical Region Laterality Modality Spine, C-spine Computed Radiogr aphy 04/16/2025 7:24 AM EDT Impressions 04/16/2025 7:26 AM EDT Artifact projects over the mid cervical vertebral bodies on AP projection. Stature of the cervical vertebral bodies is maintained. Mild retrolisthesis of C5 on C6. Atlantodental interval is maintained. If this radiology report contains a blank impression section, it is an incomplete radiology report. Please contact the interpreting radiologist or applicable radiology division as soon as possible to obtain the completed interpretation. Workstation ID: [id number] Narrative 04/16/2025 7:26 AM EDT COMPARISON: There are no prior studies available for comparison at this time. FINDINGS AND Resulting Agency Comment [id number] Procedure Note Diaz Shah DO - 04/16/2025 COMPARISON: There are no prior studies available for comparison at thistime. FINDINGS AND IMPRESSION: Artifact projects over the mid cervical vertebral bodies on APprojection. Stature of the cervical vertebral bodies is maintained. Mild retrolisthesis of C5 on C6. Atlantodental interval is maintained. If this radiology report contains a blank impression section, it is anincomplete radiology report. Please contact the interpreting radiologistor applicable radiology division as soon as possible to obtain thecompleted interpretation. Workstation ID: [id number] us [employer] [place] CERTIFIED SURGICAL FIRST ASSISTANT IMG XR PROCEDURES Final Result from Last 3 Months Insurance [employer] Care Teams Abattoir Manager Relationship Specialty Start Date End Date Ho Araya [address] [place] [phone] PCP - General Internal Medicine 11/15/24
--- OUTSIDE RECORDS SUMMARY | 2025-06-14 14:36 | XMS_ITS | Clinical Summary ---
Author Organization [facility] Address [address] [place] [address] Phone Care Team Providers Care Hand Therapist Name Role Phone Ho Araya MD Primary Care Provider [phone] Allergies Active Allergy Reactions Criticality Noted Date [...] daily as needed (Thigh pain). 4 Active fluticasone propionate (FLONASE) 50 mcg/actuation [...] and supper 60 each 4 09/27/20 25 Active sucralfate (CARAFATE) 100 [...] bottle twice daily for weight loss / [place] Flavored 60 each 4 Active lidocaine (XYLOCAINE) 5 % ointment Apply topically 2 (two) times a day. 35.44 g 5 Active cetirizine (ZyrTEC) 10 mg tablet TAKE 1 TABLET BY MOUTH EVERY DAY 90 tablet 1 5 Active Ventolin HFA 90 mcg/actuation inhaler TAKE 2 PUFFS BY MOUTH EVERY 4 HOURS NEEDED FOR COUGH OR WHEEZING. 18 each 1 5 Active dicyclomine (BENTYL) 10 mg capsule TAKE 1 CAP BY MOUTH FOUR TIMES A DAY BEFORE MEALS AND BEDTIME. USE NEEDED FOR ABDOMINAL CRAMPING 360 capsule 1 5 Active ALPRAZolam (XANAX) 0.25 mg tablet Active [...] total) by mouth at bedtime as needed. 5 Active riboflavin (VITAMIN B2) 400 mg tablet Active sertraline (ZOLOFT) 25 mg tablet Take 1 tablet (25 mg total) by mouth 1 (one) time each day. 5 Active sodium fluoride-pot nitrate 1.1-5 % paste dental paste USE 2-3X/DAILY, SPIT OUT EXCESS. DO NOT RINSE WITH WATER. NO EATING OR DRINKING FOR 45 MIN AFTER Active linaCLOtide (Linzess) 72 mcg capsule Take 1 capsule (72 mcg total) by mouth 1 (one) time each day before breakfast. 90 each 5 08/01/20 25 Active predniSONE (DELTASONE) 10 mg tablet Take 4 tablets daily for 3 days than 3 tablets daily for 3 days than 2 tablets for 3 days than 1 tablet daily for 3 days 30 tablet 5 Active Active Problems Problem Noted Date Diagnosed Date Chronic right shoulder pain 06/08/2025 Chronic pain of right knee 06/08/2025 Orthostatic hypotension 06/08/2025 Cervical radiculopathy 04/14/2025 Assessment & Plan (04/14/2025 [...] after the accident originally, was seen at [facility], [facility], did not see much improvement. She had a brachial plexus block that lasted about 8 hours with good relief and then slowly tapered off. She states she has difficulty sleeping on either side due to pain. She was offered ketamine infusion but it is too expensive to pay [id number]. She is trying to get a second opinion with pain management in [place]. Patient had C-spine MRI 03/06/2025 at [facility] that showed broad-based disc bulging C5- 6, central right disc protrusion, moderate central stenosis, no left neural foraminal narrowing. I reviewed MRI images with patient in detail on the computer. Ms. Lawton has chronic left neck and shoulder pain, [...] 11/17/2020 Migraine 07/03/2018 Overview (08/12/2024): Seen at [facility], initial visit 09/26/2020. Nerve blocks and trigger point injections done 10/04/2020 and 01/04/2021. Gastroesophageal reflux disease without esophagi tis 11/08/2016 Overview (04/14/2025): Gastro-esophageal reflux disease without esophagitis; Note: Date Diagnosed: 11/08/2016 2:47 PM (K21.9) Acne vulgaris 08/21/2016 Asthma 01/09/2012 Encounters Date Type Department Care Team Description 06/08/2025 9:15 AM EDT [facility] [address] [place] [phone] Ho Araya MD Chronic right shoulder pain (Primary Dx); Chronic pain of right knee; Orthostatic hypotension 06/07/2025 Telephone Gastroenterology [facility] [address] [phone] Stiven Villa MD special procedure 05/20/2025 Telephone Internal Medicine - [address] [phone] Ho Araya MD Referral 05/12/2025 Telephone [facility] [phone] Ho Araya MD PT-1 05/10/2025 Telephone Neurosurgery [facility] 175 [facility] [address] [place] [phone] Chayito Woods PA Results (Xray results/referral Ortho?) 05/10/[address] [facility] [address] [place] [phone] Amira Isabel NP Provider call back 05/09/2025 1:53 PM EDT - 05/09/2025 11:59 PM EDT Hospital Encounter [facility] Ultrasound [address] [place] [address] Neck swelling; Bruising Discharge Disposition: Home or Self Care 05/04/2025 Telephone Gastroenterology [facility] 175 [facility] [address] [phone] Amira Isabel NP 05/03/2025 1:20 PM EDT [facility] 175 [facility] [address] [place] [address] Amira Isabel, RAY Epigastric abdominal pain (Primary Dx); Diarrhea, unspecified type 05/03/2025 Telephone Gastroenterology [facility] 175 [facility] [address] [phone] Amira Isabel NP 05/02/2025 11:21 AM EDT - 05/02/2025 11:59 PM EDT Hospital Encounter [facility] Xray [address] [place] [address] Chronic right shoulder pain Discharge Disposition: Home or Self Care 05/02/2025 10:30 AM EDT Office Visit [facility] Hematology Oncology [address] [place] [address] Clotilde Lux DO Neck swelling (Primary Dx); Bruising 04/15/[address] [phone] Chayito Woods PA 04/15/[address] [phone] Nicole Anderson MA Injection 04/14/2025 11:30 AM EDT Consult [address] [phone] Chayito Woods PA Chronic right shoulder pain (Primary Dx); Cervical radiculitis; Cervical radiculopathy 04/08/2025 9:44 AM EDT - 04/08/2025 11:59 PM EDT Hospital Encounter [facility] [address] [place], [place] [phone] Acute pain of right knee Discharge Disposition: Home or Self Care 04/08/2025 9:00 AM EDT Office Visit Internal Medicine - [facility] [address] [place], [place] [phone] Angelique Suárez, RAY Acute pain of right knee (Primary Dx); Fibromyalgia; Complex regional pain syndrome type 1, affecting unspecified site 04/05/2025 1:37 PM EDT - 04/05/2025 11:59 PM EDT Hospital Encounter [facility] Xray [address] [place] [phone] Dizziness and giddiness Discharge Disposition: Home or Self Care 04/05/2025 [facility] [address] [place], [place] [address], [place] [phone] Ho Araya MD Referral 04/04/2025 Telephone [facility] [address] [place], [place] [address], [place] [phone] Ho Araya MD Medication Problem 04/04/2025 Telephone Internal Medicine - [facility] [address] [place], [place] [address], [place] [phone] Ho Araya MD PT-1 ([facility]) 03/22/2025 Telephone [facility] [address] [place], [place] [address]ial [place], [place] [phone] Ho Araya MD UTI from Last 3 Months Immunizations Name Administration [...] Date Comments Asthma Migraines 07/03/2018 Seen at [facility], initial visit 09/26/2020. [...] Sign Reading Time Taken Comments Blood Pressure 110/78 06/08/2025 9:04 AM EDT Pulse 92 06/08/2025 9:04 AM EDT Temperature 37 C (98.6 F) 05/02/2025 10:35 AM EDT Respiratory Rate 16 09/13/2024 10:50 AM EST Oxygen Saturation 99% 05/03/2025 1:25 PM EDT Inhaled Oxygen Concentration - - Weight 56.7 kg (125 lb) 06/08/2025 9:04 AM EDT Height 170.2 cm (5' 7 ) 06/08/2025 9:04 AM EDT Body Mass Index 19.58 06/08/2025 9:04 AM EDT Plan of Treatment Upcoming Encounters Date Type Department Care Team (Late st Contact Info) Description 06/29/2025 3:45 PM EDT Office Visit Orthopedic Surgery - [place] [address] [facility] [address] [place] [phone] Ho Garcia MD [address] [facility] [address] [place] [address] 07/26/2025 1:30 PM EDT Appointment [facility] Endoscopy [address] [place] [phone] Stiven Villa MD [address] [facility] [address] [place] [address] Health Maintenance Due Date Last Done Comments [...] pain XR KNEE 4+ VIEWS RIGHT Routine 9:56 AM EDT Acute pain of right knee TILT TABLE Routine 04/05/2025 1:49 PM EDT Dizziness and giddiness EXTERNAL VASCULAR ULTRASOUND 03/21/2025 DEPRESSION SCREENING Routine 05/12/2024 LIPID PANEL Routine 05/12/2024 HEPATITIS C SCREENING Routine 11/17/2020 from Last 3 Months or Most Recently Relevant to Health Maintenance Results * (ABNORMAL) Gastrointestinal pathogens molecular study (05/10/2025 10:15 AM EDT) Campylobacter Detection by PCR Not Detected Not Detected LAB MICROBIOLOGY METHOD 5 1:13 PM EDT [facility] Plesiomonas shigelloides Detection by PCR Not Detected Not Detected LAB MICROBIOLOGY METHOD 5 1:13 PM EDT [facility] Salmonella Detection by PCR Not Detected Not Detected LAB MICROBIOLOGY METHOD 5 1:13 PM EDT [facility] Vibrio Detection by PCR Not Detected Not Detected LAB MICROBIOLOGY METHOD 5 1:13 PM EDT [facility] Vibrio cholerae Detection by PCR Not Detected Not Detected LAB MICROBIOLOGY METHOD 5 1:13 PM EDT [facility] Yersinia enterocolitica Detection by PCR Not Detected Not Detected LAB MICROBIOLOGY METHOD 5 1:13 PM EDT [facility] Enteroaggregative E coli EAEC Detection by PCR Detected(A ) Not Detected LAB MICROBIOLOGY METHOD 5 1:13 PM EDT [facility] Enteropathogenic E coli EPEC Detection Not Detected Not Detected LAB MICROBIOLOGY METHOD 5 1:13 PM EDT [facility] Enterotoxigenic E coli ETEC LTST Detection Not Detected Not Detected LAB MICROBIOLOGY METHOD 5 1:13 PM EDT [facility] Shiga-like toxin producing E coli STEC STX1 STX2 Det Not Detected Not Detected LAB MICROBIOLOGY METHOD 5 1:13 PM EDT [facility] Shigella Enteroinvasive E coli EIEC Detection Not Detected Not Detected LAB MICROBIOLOGY METHOD 5 1:13 PM EDT [facility] Cryptosporidium Detection by PCR Not Detected Not Detected LAB MICROBIOLOGY METHOD 5 1:13 PM EDT [facility] Cyclospora cayetanensis Detection by PCR Not Detected Not Detected LAB MICROBIOLOGY METHOD 5 1:13 PM EDT [facility] Entamoeba histolytica Detection by PCR Not Detected Not Detected LAB MICROBIOLOGY METHOD 5 1:13 PM EDT [facility] Giardia lamblia Detection by PCR Not Detected Not Detected LAB MICROBIOLOGY METHOD 5 1:13 PM EDT [facility] Adenovirus F 40 41 Detection by PCR Not Detected Not Detected LAB MICROBIOLOGY METHOD 5 1:13 PM EDT [facility] Astrovirus Detection by PCR Not Detected Not Detected LAB MICROBIOLOGY METHOD 5 1:13 PM EDT [facility] Norovirus GI GII Detection by PCR Not Detected LAB MICROBIOLOGY METHOD 5 1:13 PM EDT [facility] Sapovirus Detection by PCR Not Detected Not Detected LAB MICROBIOLOGY METHOD 5 1:13 PM [facility] Rotavirus A Detection by PCR Not Detected Not Detected LAB MICROBIOLOGY METHOD 5 1:13 PM EDT [facility] Stool Rectum structure / Unknown Non-blood Collection / Unknown 05/10/2025 10:15 AM EDT 05/10/2025 10:15 AM EDT [facility] - 05/10/2025 1:13 PM EDT PCR [...] Amira Isabel NP LAB MICROBIOLOGY - GENERAL ORDRajesh GALLEGOS Final Result [facility] [address] [place] [address], * Helicobacter pylori antigen, stool (05/10/2025 10:15 AM EDT) Helicobacter Pylori Ag Not detected Not detected 05/12/2025 2:45 PM EDT [facility] Comment: This test was performed at [facility] using a chemiluminescent immunoassay intended for the [...] Food and Drug Administration. Test performed at [facility], [address] , [place] [address] Kayla Lind MD, PhD - Cardiac Cath Lab Manager Stool Rectum structure / Unknown Non-blood Collection / Unknown 05/10/2025 10:15 AM EDT 05/10/2025 10:15 AM EDT Amira Isabel NP LAB BODY FLUIDS AND STOOLS MALDONADO GALLEGOS Final Result [facility] [address] [place] [address] * US Head Neck Soft Tissue (05/09/2025 3:07 PM EDT) Anatomical Region Laterality Modality Head and Neck Ultrasound 05/10/2025 2:06 PM EDT Impressions 05/10/2025 2:08 PM EDT Impression: No evidence of cervical lymphadenopathy is seen. Telerad FERN ([id number]) -------- FINAL REPORT -------- Dictated By: Patrica Ramirez Dictated Date: 05/10/2025 14:06 ET Assigned Physician: Patrica Ramirez Reviewed and Electronically Signed By: Patrica Ramirez Signed Date: 05/10/2025 14:08 ET Workstation ID: [id number] Transcribed By: Self Edit Transcribed Date: 05/10/2025 [...] evidence of cervical lymphadenopathy is seen. Telerad FERN ([id number]) -------- FINAL REPORT -------- Dictated By: Patrica Ramirez Dictated Date: 05/10/2025 14:06 ET Assigned Physician: Patrica Ramirez Reviewed and Electronically Signed By: Patrica Ramirez Signed Date: 05/10/2025 14:08 ET Workstation ID: [id number] Transcribed By: Self Edit Transcribed Date: 05/10/2025 [...] may be considered if clinically warranted. Code 95226 -------- FINAL REPORT -------- Dictated By: Major Joiner Dictated Date: 05/02/2025 11:30 ET Assigned Physician: Major Joiner Reviewed and Electronically Signed By: Major Joiner Signed Date: 05/02/2025 11:31 ET Workstation ID: [id number] Transcribed By: Self Edit Transcribed Date: 05/02/2025 [...] MRI may be considered ifclinically warranted. Code 29826 -------- FINAL REPORT -------- Dictated By: Major Joiner Dictated Date: 05/02/2025 11:30 ET Assigned Physician: Major Joiner Reviewed and Electronically Signed By: Major Joiner Signed Date: 05/02/2025 11:31 ET Workstation ID: [id number] Transcribed By: Self Edit Transcribed Date: 05/02/2025 [...] Signed Date: 04/08/2025 14:25 ET Workstation ID: [id number] Transcribed By: Self Edit Transcribed Date: 04/08/2025 [...] Signed Date: 04/08/2025 14:25 ET Workstation ID: [id number] Transcribed By: Self Edit Transcribed Date: 04/08/2025 14:24 ET Angelique Adamson NP IMG XR PROCEDURES Final Resu lt * [...] test with findings consistant with orthostatic hypotension. Woodrow Oshea MD [facility] C[facility] SERVICES PROCEDURES F inal Result * External Vascular Ultrasound (03/21/2025) Anatomical Region Laterality Modality Ultrasound Provider Marielle Onbase CV VASCULAR PROCEDURES F inal Result * Depression Screening (05/12/2024) Depression Screening abstracted Historical Provider HEALTH MAINTENANCE Final Result * Lipid panel (05/12/2024) Pathologist [facility] LDL/HDL Ratio 3 0 - 4 Triglycerides 56 0 - 150 mg/dL Cholesterol 173 0 - 200 mg/dL HDL 68 >=40 mg/dL LDL Cholesterol 94 0 - 100 mg/dL Blood Venous blood specimen / Unknown Result [facility] Historical Provider LAB BLOOD ORDERABLES Katy l Result * Hepatitis C Screening (11/17/2020) Pathologist [facility] Hepatitis C Screening abstracted [facility] Provider HEALTH MAINTENANCE Final Result from Last 3 Months or Most Recently Relevant to Health Maintenance Additional Health Concerns Infection Onset Date Last Indicated Enteroaggregative E. coli (EAEC) 05/10/2025 05/10/[address] [facility] Care Teams Hand Therapist Relationship Specialty Start Date End Date Ho Araya MD [address] [place] [id number] PCP - General Internal Medicine 07/25/15
== END 2025-06-14 14:36 | disposition home or self-care (01) ==
LOC: HO.HCS 13:40
PROVIDERS: Visit Provider Nurse Practitioner Family
DX: I95.1 Orthostatic hypotension (principal); R42 Dizziness and giddiness; R00.2 Palpitations; G90.512 Complex regional pain syndrome I of left upper limb
CPT/HCPCS: 99213

== ENCOUNTER → 2025-06-14 13:39 | Outpatient (BNVA) | payer OTHER, SELFPAY | PROVIDERS: Visit Provider Nurse Practitioner Family | DX: I95.1 Orthostatic hypotension (principal); R42 Dizziness and giddiness; R00.2 Palpitations; M79.7 Fibromyalgia; G90.512 Complex regional pain syndrome I of left upper limb | CPT/HCPCS: 99212 ==

== ENCOUNTER 2025-07-12 07:54 | Outpatient (AMB) | payer MEDICARE, MEDICAID, SELFPAY ==
[2025-07-12 08:00] VITALS: BP 108/78; PULSE 90; O2SAT 100; BMI 20.2
--- NOTE | 2025-07-12 08:00 | A.OFFVIS_ITS ---
Vital Signs 07/12/25 08:00 Height 5 ft 8 in Weight 133 lb 2.547 oz BMI 20.2 BP 108/78 Blood Pressure Location Rt brachial Position Sitting Pulse 90 Pulse Source Pulse Oximeter Pulse Oximetry (%) 100 Oxygen Delivery Method Room Air Intake Visit Reasons: CRPS/FMS/ Insurance ianactive Intake Note: Patient presents for CRPS. Accompanied by: Self / Same As Patient Allergies ibuprofen (From Motrin) Allergy (Severe, Verified 07/12/25 08:01) Unknown metoclopramide (From REGLAN) Allergy (Mild, Verified 07/12/25 08:01) ANXIETY Penicillins (PENICILLINS) Allergy (Unknown, Verified 07/12/25 08:01) RASH HPI HPI CRPS/FMS/ Insurance ianactive: Details: R shoulder pain exacerbated with antibiotic treatment. She has been experiencing chronic right knee and shoulder pain for a few years but it has progressively gotten worse as she relies on her right side due to complex regional pain syndrome affecting her mainly on her left side. She had 2 rounds of antibiotics since for treatment of UTI in April. Right knee pain also worsened after antibiotic treatment. Feels like string is pulling down right knee medially. She had a reaction of lip swelling with increase burning and rash around mouth. She was referred to an zoo veterinarian. She also saw orthopedic surgeon. She will be starting physical therapy for C-spine strengthening due to concern for pinched nerve. 05/02/2025 R shouler x-ray no arthritis change.There is vacuum phenomenon wtihin the glenoid labrum indicating some degree of labral degeneration. 04/2025 knee x- ray showed mild displacement of patella. No arthritic changes. Lidocaine patches irritate her skin. Heat is ineffective. She avoids oral NSAIDs due to history of peptic ulcer disease in the past. She has been to ER multiple times and has not had relief with pain medications prescribed. Current treatment plan with Lyrica has not been enough to control her burning pain. Seeing [facility] near [place] yesterday. Recieving ketamine infusions for CRPS and fibromyalgia. Previous dx of hypermobility based on prior Press Operator Printing exam. Heamtologist referred to Genetics for evaluation of EDS. [facility] Medical History (Updated 07/12/25 @ 08:56 by Matthieu Lr MD) Orthostatic hypertension Leukopenia Acne vulgaris Migraine Fibromyalgia, primary Depression Anxiety Surgical History History of removal of ovarian cyst H/O breast augmentation Family History Mother Migraines Father Fibromyalgia Arthritis Headache Maternal Grandmother Arthritis Migraines Carpal tunnel syndrome Type 2 diabetes mellitus Social History Household Members: Family Housing: House Alcohol intake: never Patient Tobacco Use Status: Never used Tobacco e-Cigarette/Vaping Use: Never Used service: No Current occupational status: employed 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 She has tenderness of right subacromial region. Painful range of motion of bilateral shoulders. She has full abduction with time of bilateral shoulders. Good internal and external rotation but with pain. Positive Levi Marshall test and painful arc sign. She has swelling of right infrapatellar bursa. No joint infusion of right knee. Assessment & Plan Assessment & Plan (1) Right shoulder pain: Comment: I suspect she has rotator cuff tendinopathy contributing with impingement syndrome. We discussed conservative management. Code(s): M25.511 - Pain in right shoulder Category: Medical Qualifiers: Chronicity: chronic Qualified Code(s): M25.511 - Pain in right shoulder; G89.29 - Other chronic pain Plan: PT ordered. Requisition given to patient Try diclofenac gel 1% applied to affected area q.i.d. PRN. Avoid oral NSAIDs in setting of peptic ulcer disease. She will contact pain management if it is okay for her to use ice. She was advised in the past to avoid ice with complex regional pain syndrome Return to clinic in 4 months or sooner if needed. Can consider cortisone injection in the future (2) Impingement syndrome of right shoulder region: Code(s): M75.41 - Impingement syndrome of right shoulder Category: Medical Plan: See above (3) Infrapatellar bursitis of right knee: Code(s): M70.51 - Other bursitis of knee, right knee Category: Medical Plan: PT ordered. PT requisition given to patient Brace prescription given to patient Try diclofenac gel 1% applied to affected area q.i.d. Return to clinic in 4 months Orders: Orders PT Evaluation and Treatment Today M25.511 - Pain in right shoulder, M70.51 - Other bursitis of knee, right knee, M75.41 - Impingement syndrome of right sh oulder Medications: New leg brace (Knee Support Brace) As directed Knee brace Dx: infrapetallar bursit is, hypermobility 1 ea 0RF diclofenac sodium 1% apply to affected area QID 4 grams topical QID 100 grams 2RF Coding Level of Care Code Est Pt Level 4 (84624) Complex EM visit Add On G2211 Diagnoses Chronic right shoulder pain M25.511; G89.29 Chronicity: chronic Impingement syndrome of right shoulder region M75.41 Infrapatellar bursitis of right knee M70.51 Time Spent (min) 30
--- OUTSIDE RECORDS SUMMARY | 2025-07-12 08:00 | XMS_ITS | Clinical Summary ---
Author Organization [facility] Address [address] [place] [address] Phone Care Team Providers Care Final Inspector Paper Name Role Phone Ho Araya MD Primary Care Provider [phone] Allergies Active Allergy Reactions Criticality Noted Date [...] bottle twice daily for weight loss / Teaberry Flavored 60 each 4 Active lidocaine (XYLOCAINE) [...] after the accident originally, was seen at [facility], [facility], did not see much improvement. She had a brachial plexus block that lasted about 8 hours with good relief and then slowly tapered off. She states she has difficulty sleeping on either side due to pain. She was offered ketamine infusion but it is too expensive to pay [id number]. She is trying to get a second opinion with pain management in [place]. Patient had C-spine MRI 03/06/2025 at [facility] that showed broad-based disc bulging C5- 6, [...] 11/17/2020 Migraine 07/03/2018 Overview (08/12/2024): Seen at [facility] Management, initial visit 09/26/2020. Nerve blocks and trigger point injections done 10/04/2020 and 01/04/2021. Gastroesophageal reflux disease without esophagi tis 11/08/2016 Overview (04/14/2025): Gastro-esophageal reflux disease without esophagitis; Note: Date Diagnosed: 11/08/2016 2:47 PM (K21.9) Acne vulgaris 08/21/2016 Asthma 01/09/2012 Encounters Date Type Department Care Team Description 06/29/2025 3:45 PM EDT Office Visit Orthopedic Surgery [facility] [address] [facility] [address] [place] [phone] Ho Garcia MD Fibromyalgia (Primary Dx); Chronic right shoulder pain; Autoimmune disorder of autonomic nervous system 06/16/2025 Telephone [facility] [address] [phone] Katelyn Sanchez [place] 06/08/2025 9:15 AM EDT Office Visit Internal Medicine [facility] [address] [place], [place] [phone] Ho Araya MD Chronic right shoulder pain (Primary Dx); Chronic pain of right knee; Orthostatic hypotension 06/07/2025 Telephone Gastroenterology [facility] [address] [facility] [address] [place] [phone] Stiven Villa MD 05/20/2025 Telephone Internal Medicine - [facility] [address] [place], [place] [phone] Ho Araya MD 05/12/2025 Telephone Internal Medicine - [facility] [address] [place], [place] [phone] Ho Araya MD 05/10/2025 Telephone Neurosurgery [facility] 175 [facility] [address] [place] [phone] Chayito Woods PA 05/10/2025 Telephone Gastroenterology [facility] [address] [facility] [address] [place] [phone] Amira Isabel, RAY 05/09/2025 1:53 PM EDT - 05/09/2025 11:59 PM EDT Hospital Encounter [facility] Ultrasound [address] [place] [address] Neck swelling; Bruising Discharge Disposition: Home or Self Care 05/04/2025 Telephone Gastroenterology [facility] [address] [facility] [address] [place] [phone] Amira Isabel NP 05/03/2025 1:20 PM EDT Office Visit Gastroenterology [facility] 175 [facility] [address] [phone] Amira Isabel, RAY Epigastric abdominal pain (Primary Dx); Diarrhea, unspecified type 05/03/2025 Telephone Gastroenterology [facility] 175 [facility] 175 [facility] [address] [place] [phone] Amira Isabel NP 05/02/2025 11:21 AM EDT - 05/02/2025 11:59 PM EDT Hospital Encounter [facility] Xray [address] [place] [address] Chronic right shoulder pain Discharge Disposition: Home or Self Care 05/02/2025 10:30 AM EDT Office Visit [facility] Hematology Oncology [address] [place] [address] Clotilde Lux DO Neck swelling (Primary Dx); Bruising 04/15/2025 Telephone [facility] [address] [phone] Chayito Woods PA 04/15/2025 Telephone Neurosurgery [facility] [address] [phone] Nicole Anderson [place] 04/14/2025 11:30 AM EDT Consult Neurosurgery [facility] [address] [phone] Chayito Woods PA Chronic right shoulder pain (Primary Dx); Cervical radiculitis; Cervical radiculopathy from Last 3 Months Immunizations Name Administration [...] Date Comments Asthma Migraines 07/03/2018 Seen at [facility], initial visit 09/26/2020. Nerve blocks and trigger point injections done 10/04/2020 and 01/04/2021. 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[facility], a diagnosis confirmed by a biologics specialist Orthostatic hypotension tilt tab le test conducted by a mba internship revealed positive results Family History Medical History Relation Name Comments [...] Care Team (Late st Contact Info) Description 08/31/2025 3:00 PM EDT Appointment [facility] Endoscopy [address] [place] [address] Stiven Villa MD [address] [place] [phone] Health Maintenance Due Date Last Done Comments Hepatitis B Vaccines (1 of 3 - 19+ 3-dose series) 2011 Pneumococcal Vaccine: Pediatrics (0 to 5 Years) and At-Risk Patients (6 to 49 Years) (1 of 2 - PCV) 2011 Cervical Cancer Screening: Pap Smear 2013 HIV Screening 10/05/2022 Social Influencers of Health Screening 10/05/2022 Depression Screening 11/03/2024 05/12/2024 COVID-19 Vaccine ( season) 2025 Influenza Vaccine (#1) 2025 , 08/28/2020, 08/02/2019, [...] 11:29 AM EDT Chronic right shoulder pain DEPRESSION SCREENING Routine 05/12/2024 LIPID PANEL Routine 05/12/2024 HEPATITIS C SCREENING Routine 11/17/2020 from Last 3 Months or Most Recently Relevant to Health Maintenance Results * (ABNORMAL) Gastrointestinal pathogens molecular study (05/10/2025 10:15 AM EDT) Campylobacter Detection by PCR Not Detected Not Detected LAB MICROBIOLOGY METHOD 5 1:13 PM EDT [facility] Plesiomonas shigelloides Detection by PCR Not Detected Not Detected LAB MICROBIOLOGY METHOD 5 1:13 PM EDT [facility] Salmonella Detection by PCR Not Detected Not Detected LAB MICROBIOLOGY METHOD 5 1:13 PM EDT [facility] Vibrio Detection by PCR Not Detected Not Detected LAB MICROBIOLOGY METHOD 5 1:13 PM EDT [facility] Vibrio cholerae Detection by PCR Not Detected Not Detected LAB MICROBIOLOGY METHOD 5 1:13 PM EDT [facility] Yersinia enterocolitica Detection by PCR Not Detected Not Detected LAB MICROBIOLOGY METHOD 5 1:13 PM EDT [facility] Enteroaggregative E coli EAEC Detection by PCR Detected(A ) Not Detected LAB MICROBIOLOGY METHOD 5 1:13 PM EDT [facility] Enteropathogenic E coli EPEC Detection Not Detected Not Detected LAB MICROBIOLOGY METHOD 5 1:13 PM EDT [facility] Enterotoxigenic E coli ETEC LTST Detection Not Detected Not Detected LAB MICROBIOLOGY METHOD 5 1:13 PM EDT [facility] Shiga-like toxin producing E coli STEC STX1 STX2 Det Not Detected Not Detected LAB MICROBIOLOGY METHOD 5 1:13 PM EDT [facility] Shigella Enteroinvasive E coli EIEC Detection Not Detected Not Detected LAB MICROBIOLOGY METHOD 5 1:13 PM EDT [facility] Cryptosporidium Detection by PCR Not Detected Not Detected LAB MICROBIOLOGY METHOD 5 1:13 PM EDT [facility] Cyclospora cayetanensis Detection by PCR Not Detected Not Detected LAB MICROBIOLOGY [facility] 5 1:[facility] Entamoeba histolytica Detection by PCR Not Detected Not Detected LAB MICROBIOLOGY METHOD 5 1:13 [facility] Giardia lamblia Detection by PCR Not Detected Not Detected LAB MICROBIOLOGY METHOD 5 1:13 PM [facility] Adenovirus F 40 41 Detection by PCR Not Detected Not Detected LAB MICROBIOLOGY METHOD 5 1:13 PM [facility] Astrovirus Detection by PCR Not Detected Not Detected LAB MICROBIOLOGY METHOD 5 1:13 PM [facility] Norovirus GI GII Detection by PCR Not Detected LAB MICROBIOLOGY METHOD 5 1:13 PM [facility] Sapovirus Detection by PCR Not Detected Not Detected LAB MICROBIOLOGY METHOD 5 1:13 PM [facility] Rotavirus A Detection by PCR Not Detected Not Detected LAB MICROBIOLOGY METHOD 5 1:13 PM [facility] Stool Rectum structure / Unknown Non-blood Collection / Unknown 05/10/2025 10:15 AM EDT 05/10/2025 10:15 AM EDT [facility] - 05/10/2025 1:13 PM [...] Testing Performed by MULTIPLEXED PCR Amira Isabel LAB MICROBIOLOGY - [facility]OW[facility]esh GALLEGOS Final Result [facility] [address] [place] [address], * Helicobacter pylori antigen, stool (05/10/2025 10:15 AM EDT) Helicobacter Pylori Ag Not detected Not detected 05/12/2025 2:45 PM EDT [facility] Comment: This test was performed at [facility] using a chemiluminescent immunoassay intended for the [...] Food and Drug Administration. Test performed at [facility], [address] , [place] [address] Kayla Lind MD, PhD - Infection Control Rn Stool Rectum structure / Unknown Non-blood Collection / Unknown 05/10/2025 10:15 AM EDT 05/10/2025 10:15 AM EDT Amira Chalo [facility] BODY FLUIDS AND STOOLS MALDONADO GALLEGOS Final Result [facility] [address] [place] [address] * US Head Neck Soft Tissue (05/09/2025 3:07 PM EDT) Anatomical Region Laterality Modality Head and Neck Ultrasound 05/10/2025 2:06 PM EDT Impressions 05/10/2025 2:08 PM EDT Impression: No evidence of cervical lymphadenopathy is seen. Telerad FERN ([id number]) -------- FINAL REPORT -------- Dictated By: Patrica Ramirez Dictated Date: 05/10/2025 14:06 ET Assigned Physician: Patrica Ramirez Reviewed and Electronically Signed By: Patrica Ramirez Signed Date: 05/10/2025 14:08 ET Workstation ID: [id number] Transcribed By: Self Edit Transcribed Date: 05/10/2025 [...] of cervical lymphadenopathy is seen. Telerad PA ([id number]) -------- FINAL REPORT -------- Dictated By: Patrica Ramirez Dictated Date: 05/10/2025 14:06 ET Assigned Physician: Patrica Ramirez Reviewed and Electronically Signed By: Patrica Ramirez Signed Date: 05/10/2025 14:08 ET Workstation ID: [id number] Transcribed By: Self Edit Transcribed Date: 05/10/2025 14:06 ET us Clotilde Alyson Maci DO IMG US PROCEDURES Fin al Result [...] may be considered if clinically warranted. Code 74140 -------- FINAL REPORT -------- Dictated By: Major Joiner Dictated Date: 05/02/2025 11:30 ET Assigned Physician: Major Joiner Reviewed and Electronically Signed By: Major Joiner Signed Date: 05/02/2025 11:31 ET Workstation ID: [id number] Transcribed By: Self Edit Transcribed Date: 05/02/2025 [...] MRI may be considered ifclinically warranted. Code 22267 -------- FINAL REPORT -------- Dictated By: Major Joiner Dictated Date: 05/02/2025 11:30 ET Assigned Physician: Major Joiner Reviewed and Electronically Signed By: Major Joiner Signed Date: 05/02/2025 11:31 ET Workstation ID: [id number] Transcribed By: Self Edit Transcribed Date: 05/02/2025 11:30 ET Chayito SHIRLEY IMG XR PROCEDURES Final Re sult * Depression Screening (05/12/2024) Pathologist [facility] Depression Screening abstracted Historical Provider HEALTH MAINTENANCE Final Result * Lipid panel (05/12/2024) [facility] LDL/HDL Ratio 3 0 - 4 Triglycerides 56 0 - 150 mg/dL Cholesterol 173 0 - 200 mg/dL HDL 68 >=40 mg/dL LDL Cholesterol 94 0 - 100 mg/dL Blood Venous blood specimen / Unknown Historical Provider LAB BLOOD ORDERABLES Katy l Result * Hepatitis C Screening (11/17/2020) Pathologist [facility] Hepatitis C Screening abstracted Historical Provider HEALTH MAINTENANCE Final Result from Last 3 Months or Most Recently Relevant to Health Maintenance Additional Health Concerns Infection Onset Date Last Indicated Enteroaggregative E. coli (EAEC) 05/10/2025 05/10/2025 Insurance [facility] Care Teams Final Inspector Paper Relationship Specialty Start Date End Date Ho Araya MD [address] [place] [id number] PCP - General Internal Medicine 07/25/15
--- OUTSIDE RECORDS SUMMARY | 2025-07-12 08:00 | XMS_ITS | Clinical Summary ---
Author Organization [facility] Address [address] [place] [address] Care Team Providers Care Sail Finisher Machine Name Role Phone Ho Araya MD Primary Care Provider [phone] Allergies Active Allergy Reactions Criticality Noted Date [...] age to complete this topic Care Teams Sail Finisher Machine Relationship Specialty Start Date End Date Ho Araya MD PCP - General Internal Medicine 05/19/24
--- OUTSIDE RECORDS SUMMARY | 2025-07-12 08:01 | XMS_ITS | Encounter Summary ---
Author Organization [facility] Address [address] [place] [address] Care Team Providers Care Printing Press Machine Operator Name Role Phone Ho Araya Primary Care Provider [phone] Reason for Referral * Physical Therapy (Routine) - Pending Review Specialty Diagnoses / Procedures Referred By Arron yates Referred To Contact Physical Therapy Diagnoses Complex regional pain syndrome type 1 of left upper extremity Makayla Ayala MD MPH [address] [place] [address] Phone: tel: fax: [place] [address] Phone: tel: fax: Referral ID Status Reason Start Date Expiration Date Visits Requested Visits Authorized [id number] Pending Review Specialty Services Required 06/17/2025 07/18/2026 6 6 Encounter Details Date Type Department Care Team (Latest Contact Info) Description 06/17/2025 Transcribe Orders [facility] Vascular Surgery [address] [place] [address] Photography Assistant: Rupali Arias MD MPH [address] [place] [address] Complex regional pain syndrome type 1 of left upper extremity (Primary Dx) Social History Tobacco Use Types Packs/Day Years Used Date Smoking Tobacco: Never Passive Smoke Exposure: Past Smokeless Tobacco: Never Comments Unknown Sex and Gender Information Value Date Recorded Sex Assigned at Female 11/15/2024 9:11 AM EST Legal Sex Female 9:09 AM EST Gender Identity Not on file Sexual Orientation Not on file documented as of this encounter Plan of Treatment Upcoming Encounters Date Type Department Care Team (Late st Contact Info) Description 08/19/2025 10:00 AM EDT Telehealth [facility] Vascular Surgery [address] [place] [address] Photography Assistant: Makayla Mackey MD MPH [address] [place] [address] Scheduled Referrals Name Type Priority Associated Diagnoses Order Schedule Ambulatory referral to Physical Therapy Outpatient Referral Routine Complex regional pain syndrome type 1 of left upper extremity Expected: 06/17/2025, Expires: 07/18/2026 documented as of this encounter Visit Diagnoses Diagnosis Complex regional pain syndrome type 1 of left upper extremity- Primary documented in this encounter Care Teams Printing Press Machine Operator Relationship Specialty Start Date End Date Ho Araya [address] [place] [address] PCP - General Internal Medicine 11/15/24 documented as of this encounter
--- OUTSIDE RECORDS SUMMARY | 2025-07-12 08:01 | XMS_ITS | Encounter Summary ---
Author Organization [facility] Address [address] [place] [address] Care Team Providers Care Gimp Buttonhole Machine Operator Name Role Phone Ho Araya MD Primary Care Provider [phone] Encounter Details Date Type Department Care Team (Late Contact Info) Description 09/24/2024 Lab Requisition [facility] - Main Lab [address] [facility] [place] [phone] Sergio Gross PA [address] [facility] [address] [place] [phone] Other microscopic hematuria Social History Tobacco Use [...] Department Care Team (Late Contact Info) Description 08/31/2025 3:00 PM EDT Appointment [facility] Endoscopy [address] [place] [address] Stiven Villa MD [address] [place] [phone] documented as of this encounter Procedures Procedure [...] clinical and pathological findings. 10/12/2024 9:06 AM [facility] Addendum electronically signed by Gaetano Fernando MD on 10/12/2024 at 9:06 AM Final Diagnosis Urine, Voided: Negative for high grade urothelial carcinoma. Note: UroVysion testing to follow. 10/12/2024 9:06 AM [facility] Clinical Information [id number], Urine cyto/urine FISH. 10/12/2024 9:06 AM [facility] Gross Description A. Urine, Voided, : [id number] recd 1 TP cyto 1 TP fish. 10/12/2024 9:06 AM [facility] Disclaimer Unless otherwise specified, all tissue is 10% NB formalin fixed and paraffin embedded. 10/12/2024 9:06 AM [facility] Tissue Urine specimen from urethra / Unknown 09/21/2024 09/24/2024 1:47 PM EST us Sergio SHIRLEY LAB PATHOLOGY ORDERABLES Edite d Result - Final [facility] [address] [place] [address], documented in this encounter Visit Diagnoses Diagnosis Other microscopic hematuria documented in this encounter Additional Health Concerns Infection Onset Date Last Indicated Resolved Time Gastrointestinal Rule-Out 05/10/2025 05/10/2025 1:13 PM EDT C. difficile Rule-Out 05/10/2025 05/10/20252024 12:00 PM EDT Enteroaggregative E. coli (EAEC) 05/10/2025 05/10/20 25 documented as of this encounter Care Teams Gimp Buttonhole Machine Operator Relationship Specialty Start Date End Date Ho Araya MD [address] [place] [address] PCP - General Internal Medicine 07/25/15 documented as of this encounter
--- OUTSIDE RECORDS SUMMARY | 2025-07-12 08:01 | XMS_ITS | Clinical Summary ---
Author Organization [facility] Address [address] [place] [phone] Phone Care Team Providers Care Tunnel Elastic Operator Chainstitch Name Role Phone Ho Araya MD Primary [...] (18-6 5 YEARS) 2010 PAP SMEAR 2013 INFLUENZA VACCINE (#1) 2025 COVID-19 VACCINE (2023-2 5 season) 2025 HEPATITIS A VACCINES Aged Out No long [...] topic Medical Devices Not on file [facility] [employer] [place] [address] [place] [address] [facility] ACO Care Teams Tunnel Elastic Operator Chainstitch Relationship Specialty Start Date End Date Ho Araya MD [address] [place] [phone] PCP - General Internal Medicine 09/01/24 Additional Source Comments The information contained in this document represents components of the legal health record. It is not the complete legal health record.[facility]
--- OUTSIDE RECORDS SUMMARY | 2025-07-12 08:01 | XMS_ITS | Encounter Summary ---
Author Organization [facility] Address [address] [place] [address] Care Team Providers Care Fruit And Vegetable Classer Name Role Phone Ho Araya Primary Care Provider [phone] Reason for Visit * Reason Onset Date Comments PAC General Info_Simons 06/15/2025 Encounter Details Date Type Department Care Team (Late st Contact Info) Description 06/15/2025 Telephone [facility] Vascular Surgery [address] [place] [phone] Polygraph Examiner: Aspen Vaughan Telephone Intake, Staff PAC General Info_Simoncamila Social History Tobacco Use Types Packs/Day Years Used Date Smoking Tobacco: Never Passive Smoke Exposure: Past Smokeless Tobacco: Never Comments Unknown Sex and Gender Information Value Date Recorded Sex Assigned at Female 11/15/2024 9:11 AM EST Legal Sex Female 9:09 AM EST Gender Identity Not on file Sexual Orientation Not on file documented as of this encounter Miscellaneous Notes * Telephone Encounter - Sailaja Coombs - 06/20/2025 11:20 AM EDT Pt calling again, states PT office has not received the referral. Pt would like a call back at # * Telephone Encounter - Cortney Lacey - 06/15/2025 2:46 PM EDT Diagnosis: referral for PT to be resent Reason for TE: DT directive instructs TE; O Other important details: patient calls again requesting that the referral for [place] PT be resent as they still have not received it see TE from April If other than patient calling who should call be returned to? [facility] in [place]. Also needs to reschedule her July 15 visit as she has not started therapy as of yet documented in this encounter Plan of Treatment Upcoming Encounters Date Type Department Care Team (Late st Contact Info) Description 08/19/2025 10:00 AM EDT Telehealth [facility] Vascular Surgery [address] [place] [address] Polygraph Examiner: Makayla Mackey MD MPH [address] [place] [phone] documented as of this encounter Visit Diagnoses Not on filedocumented in this encounter Care Teams Fruit And Vegetable Classer Relationship Specialty Start Date End Date Ho Araya [address] [place] [phone] PCP - General Internal Medicine 11/15/24 documented as of this encounter
--- OUTSIDE RECORDS SUMMARY | 2025-07-12 08:01 | XMS_ITS | Encounter Summary ---
Author Organization [facility] Address [address] [place] [address] Care Team Providers Care Patternmaker Pressure Cast Name Role Phone Ho Araya Primary Care Provider [phone] Reason for Visit * Reason Onset Date Comments PAC Appt Request - Established 06/20/2025 Encounter Details Date Type Department Care Team (Late st Contact Info) Description 06/20/2025 Telephone [facility] Vascular Surgery [address] [place] [phone] Manager Landscape: Aspen Vaughan Telephone Intake, Staff PAC Appt Request - Established Social History Tobacco Use Types Packs/Day Years [...] Telephone Encounter - Sailaja Coombs - 06/20/2025 11:23 AM EDT Pt called, she would like to reschedule her appt, and pt states the PT office has not received the PT order. Pt would like a call pt ph# [phone]. documented in this encounter Plan of Treatment Upcoming Encounters Date Type Department Care Team (Late st Contact Info) Description 08/19/2025 10:00 AM EDT Telehealth [facility] Vascular Surgery [address] [place] [address] [phone] Manager Landscape: Makayla Mackey MD MPH [address] [place] [phone] documented as of this encounter Visit Diagnoses Not on filedocumented in this encounter Care Teams Patternmaker Pressure Cast Relationship Specialty Start Date End Date Ho Araya [address] [place] [phone] PCP - General Internal Medicine 11/15/24 documented as of this encounter
--- OUTSIDE RECORDS SUMMARY | 2025-07-12 08:01 | XMS_ITS | Clinical Summary ---
Author Organization [facility] Address [address] [place] [address] Care Team Providers Care Still Pump Operator Name Role Phone Wendi Toney MD [...] series) 2011 Pap Smear (Ages 21-65) 2013 HPV Vaccines (1 - 3-dose SCD M series) 2019 COVID-19 Vaccine (1 - 2023-2 5 season) 2024 Influenza Vaccine 06/03/2025 Pneumococcal Vaccine: Pediat alan (0-5 Years) and At-Risk Patients (6 to 49 Years) Aged Out No longer eligible b ased on patient's age to complete this topic Insurance [employer] on file Care Teams Still Pump Operator Relationship Specialty Start Date End Date Wendi Toney MD [address] [place] [address] PCP - General Internal Medicine 08/31/20
--- OUTSIDE RECORDS SUMMARY | 2025-07-12 08:01 | XMS_ITS | Clinical Summary ---
Author Organization [facility] Address [address] [place] [address] Care Team Providers Care Belt Measurer Name Role Phone Ho Araya Primary Care Provider [phone] Allergies Active Allergy Reactions Criticality Noted Date Comments Metoclopramide Unknown,Itching,Othe r (see comments) 03/30/2019 Level of certainty: Very Certain; Other Reaction(s): Akathisia Anxiety Penicillins Rash,Unknown Medium 11/30/2004 Level of certainty: Moderately Certain Medications baclofen (LIORESAL) 10 mg tablet 10 mg 2 times a day as needed. Active pregabalin (LYRICA) 200 mg capsule Take 200 mg by mouth 3 times a day. 5 Active naratriptan (AMERGE) 2.5 mg tablet Take [...] tablet Take 25 mg by mouth daily. Active cetirizine (ZyrTEC) 10 mg tablet Take 10 mg by mouth once a day. Active methocarbamoL (ROBAXIN) 500 mg tabletIndications:T OS (thoracic outlet syndrome) Take 1 tablet (500 mg total) by mouth 4 times a day. 120 tablet 2 5 07/14/20 25 Active Encounters Date Type Department Care Team Description 06/20/2025 Telephone [facility] Vascular Surgery [address] [place] [phone] Shadow Graph Weight Operator: Aspen Vaughan Telephone Intake, Staff PAC Appt Request - Established 06/17/2025 Transcribe Orders [facility] Vascular Surgery [address] [place] [phone] Shadow Graph Weight Operator: Rupali Arias MD MPH Complex regional pain syndrome type 1 of left upper extremity (Primary Dx) 06/15/2025 Telephone [facility] Vascular Surgery [address] [place] [address] [phone] Shadow Graph Weight Operator: Aspen Vaughan Telephone Intake, Staff PAC General Info_Simons 04/25/2025 Telephone [facility] Vascular Surgery [address] [place] [address] [phone] Shadow Graph Weight Operator: Makayla Mackey MD MPH 04/15/2025 11:20 AM EDT Office Visit [facility] Vascular Surgery [address] [place] [address] [phone] Shadow Graph Weight Operator: Makayla Mackey MD MPH TOS (thoracic outlet syndrome) (Primary Dx) 04/15/2025 10:49 AM EDT - 04/15/2025 11:59 PM EDT Hospital Encounter [facility] Xray [address] [place] [phone] TOS (thoracic outlet syndrome) Discharge Disposition: Home or Self Care (01) from Last 3 Months Social History Tobacco Use Types Packs/Day Years [...] Info) Description 08/19/2025 10:00 AM EDT Telehealth [facility] Vascular Surgery [address] [place] [phone] Shadow Graph Weight Operator: Makayla Mackey MD MPH [address] [place] [address] [phone] Health Maintenance Due Date Last Done Comments Cervical Cancer Screening 1992 HIV Screening 1992 HPV and Pap Smear 1992 Hepatitis C Screening 1992 Pap Smear 1992 Varicella Vaccines (2 of 2 - 13+ 2-dose series) 10/01/2007 09/03/2007 Hepatitis B Vaccines (1 of 3 - 19+ 3-dose series) 2011 Pneumococcal Vaccine: Pediat alan (0-5 Years) and At-Risk Patients (6-50 Years) (1 of 2 - PCV) 2011 Alcohol/Substance Use Screening 11/03/2024 Depression Screening and Follow-Up 11/03/2024 Social Drivers of Health Carmita ual Screening 11/03/2024 COVID-19 Vaccine (1 - 2023-2 5 season) 2025 Influenza Vaccine (#1) 2025 , 08/28/2020, 08/02/2019, Additional history exists DTaP,Tdap,and Td Vaccines (4 - Td or Tdap) 08/23/2029 08/23/2019, 08/11/2014, 03/23/2004 RSV Vaccine (60+ years old a nd patients) (1 - 1-dose 75+ series) 2067 Procedures * Due to [place] law, this organization might not be sharing negative HIV tests. Procedure Name Priority Date/Time Associated Diagnosis Comments XR CERVICAL SPINE 4 OR 5 VIEWS INCLUDING OBLIQUES Routine 04/15/2025 11:00 AM EDT TOS (thoracic outlet syndrome) from Last 3 Months Results * Due to [place] law, this organization might not be sharing [...] to obtain the completed interpretation. Workstation ID: [id number] Narrative 04/16/2025 7:26 AM EDT COMPARISON: There are no prior studies available for comparison at this time. FINDINGS AND Resulting Agency Comment [id number] Procedure Note Diaz Shah, DO - 04/16/2025 COMPARISON: There are no [...] possible to obtain thecompleted interpretation. Workstation ID: [id number] us Fly Conroy NP IMG XR PROCEDURES Final Result from Last [address] [place] [address] [place] [address] MEDICAID Care Teams Belt Measurer Relationship Specialty Start Date End Date Ho Araya [address] [place] [phone] PCP - General Internal Medicine 11/15/24
== END 2025-07-12 08:54 | disposition home or self-care (01) ==
PROVIDERS: PCP Internal Medicine; Visit Provider Internal Medicine Rheumatology
DX: M25.511 Pain in right shoulder (principal); G89.29 Other chronic pain; M75.41 Impingement syndrome of right shoulder; M70.51 Other bursitis of knee, right knee
CPT/HCPCS: 99214; G2211

== ENCOUNTER 2025-07-12 07:54 | Outpatient (REF) | payer MEDICARE, MEDICAID, SELFPAY ==
[2025-07-12 12:59] LABS: MANUAL DIFF FLAG NO
[2025-07-12 13:16] LABS: Hematocrit 40.1 % (37.0-47.0); Hemoglobin 13.5 g/dl (12.0-16.0); Imm Gran Abs Auto 0.00 X10*3/uL (0.00-0.03); Imm Gran Pct Auto 0.0 % (0.0-0.4); Lymphocytes Absolute Auto 1.0 X10*3/uL (1.2-4.9); Mean Corpuscular HGB Conc 33.7 g/dl (31.0-35.0); Mean Corpuscular Hemoglobin 30.0 pg (27.0-33.0); Mean Corpuscular Volume 89.1 fL (80.0-98.0); NRBC Abs Auto 0.000 X10*3/uL (0.0-0.012); NRBC Pct Auto 0.0 /100WBC (0.0-0.2); Platelet Count 195 X10*3/uL (160-400); Red Blood Count 4.50 X10*6/uL (4.20-5.50); White Blood Count 3.2 X10*3/uL (4.8-10.8)
[2025-07-12 13:59] LABS: Alanine Aminotransferase 23 U/L (0-31); Albumin Level 4.9 g/dL (3.5-5.0); Alkaline Phosphatase 56 U/L (39-117); Anion Gap 11 (12-20); Aspartate Amino Transferase 23 U/L (5-31); Blood Urea Nitrogen 10 mg/dL (9-16); Calcium 9.3 mg/dL (8.4-10.2); Carbon Dioxide 23 mmol/L (22-29); Chloride 111 mmol/L (96-108); Estimated Glomerular Filt Rate > 60; Potassium 4.3 mmol/L (3.3-5.1); Sodium 141 mmol/L (135-145); Total Protein 7.3 g/dL (6.5-8.0)
[2025-07-16 14:29] LABS: Vitamin D 25-OH, D2 <4 ng/mL; Vitamin D 25-OH, D3 37 ng/mL; Vitamin D 25-OH, Total 37 ng/mL (30-100)
== END 2025-07-12 07:55 | disposition home or self-care (01) ==
LOC: HO.HKASLDS 07:54
PROVIDERS: Nurse Practitioner Family; PCP Internal Medicine; Visit Provider Internal Medicine Rheumatology
DX: M75.41 Impingement syndrome of right shoulder (principal); M70.51 Other bursitis of knee, right knee; G90.512 Complex regional pain syndrome I of left upper limb; E55.9 Vitamin D deficiency, unspecified; D64.9 Anemia, unspecified; R25.1 Tremor, unspecified
CPT/HCPCS: 36415; 80053; 82306; 85025; 99212

== ENCOUNTER 2025-07-12 09:00 | Outpatient (REF) | payer MEDICARE, MEDICAID, SELFPAY | END 2025-07-12 09:01 | disposition home or self-care (01) | LOC: HO.HKASLDS 09:00 | PROVIDERS: Visit Provider Nurse Practitioner Family | DX: Z13.89 Encounter for screening for other disorder (principal) ==

== ENCOUNTER 2025-09-13 14:46 | Outpatient (AMB) | payer MEDICARE, MEDICAID, SELFPAY ==
[2025-09-13 14:54] VITALS: BP 130/70; PULSE 106; O2SAT 100; BMI 21.0
--- NOTE | 2025-09-13 14:54 | MHC.OFFVIS ---
Vital Signs 09/13/25 14:54 Height 5 ft 8 in Weight 138 lb 0.15 oz BMI 21.0 BP 130/70 Blood Pressure Location Rt brachial Position Sitting Pulse 106 H Pulse Source Pulse Oximeter Pulse Oximetry (%) 100 Intake Visit Reasons: cortisone shoulder injection Intake Note: Patient presents for CRPS. Accompanied by: Self / Same As Patient Allergies ibuprofen (From Motrin) Allergy (Severe, Verified 09/13/25 14:55) Unknown metoclopramide (From REGLAN) Allergy (Mild, Verified 09/13/25 14:55) ANXIETY Penicillins (PENICILLINS) Allergy (Unknown, Verified 09/13/25 14:55) RASH HPI HPI cortisone shoulder injection: Details: She completed 6 weeks of physical therapy. She had increased pain. She has developed swelling in her right shoulder with anterior pain she is having difficulty with ADLs. She is unable to lift her arm. She is using diclofenac gel 1% applied to affected area as needed. Contraindication to applying ice to affected area due to complex regional pain syndrome. Contraindication to oral NSAIDs due to history of gastritis. Tylenol and lidocaine patches ineffective. Heat irritates her skin. She starting ketamine infusions next week for management of complex regional pain syndrome and fibromyalgia. She is experiencing swelling in her right knee. It feels hot at times. She has a past history of rheumatoid factor positivity. 05/02/2025 R shouler x-ray no arthritis change.There is vacuum phenomenon wtihin the glenoid labrum indicating some degree of labral degeneration. 04/2025 knee x-ray showed mild displacement of patella. No arthritic changes. [facility], [facility] Medical History (Updated 09/13/25 @ 21:40 by Matthieu Lr MD) Orthostatic hypertension Leukopenia Acne vulgaris Migraine Fibromyalgia, primary Depression Anxiety Surgical History History of removal of ovarian cyst H/O breast augmentation Family History Mother Migraines Father Fibromyalgia Arthritis Headache Maternal Grandmother Arthritis Migraines Carpal tunnel syndrome Type 2 diabetes mellitus Social History Household Members: Family Housing: House Alcohol intake: never Patient Tobacco Use Status: Never used Tobacco e-Cigarette/Vaping Use: Never Used service: No Current occupational status: employed 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 She has developed mild swelling of right shoulder. She has tenderness of right subacromial region. Painful range of motion of bilateral shoulders. She is unable to abduct above 90 degrees. Good internal and external rotation but with pain. She has swelling of right infrapatellar bursa. Mild right knee effusion. Office Procedures AMB Joint Injection/Aspiration Joint Injection/Aspiration Details: Right shoulder joint Prep: site was prepped using aseptic technique Injected: 40 mg of, Kenalog, with 1 mL of and 1% plain lidocaine Procedure: Informed verbal consent was obtained. The patient tolerated the procedure well. Postprocedure protocol was discussed with patient. Coding 74889 - Large joint Procedure code (CPT) selection complete Office Meds lidocaine (PF) 10 mg/mL (1 %) injection solution Performing Provider: Matthieu Lr MD Performing Location: [facility] Administered by: Marcelina Belle RN on 09/13/25 15:36 Dose Route Admin Location Dispensed Lot Number Expiration Date [facility] Diesel Service Technician 1 mL Infiltration right shoulder 2 mL [id number] 01/31/27 91998-478-67 FRESENIUS KABI Total Dispensed Waste 2 mL 50 % Kenalog 40 mg/mL suspension for injection Performing Provider: Matthieu Lr MD Performing Location: [facility] Administered by: Marcelina Belle RN on 09/13/25 15:36 Dose Route Admin Location Dispensed Lot Number Expiration Date [facility] Diesel Service Technician 40 mg intra-articular right shoulder 1 mL [id number] 05/02/27 [address]-8 [employer] Total Dispensed Waste 1 mL 0 % Assessment & Plan Assessment & Plan (1) Right shoulder pain: Comment: I suspect she has rotator cuff tendinopathy contributing with impingement syndrome. However, it would not explain the new swelling of her right shoulder. She failed physical therapy, diclofenac gel, lidocaine patch and Tylenol. Contraindication to oral NSAIDs due to history of gastritis and peptic ulcer disease. Contraindication to applying ice to affected area due to complex regional pain syndrome. In the past when she received cortisone injections it has exacerbated pain from complex regional pain syndrome for a week. Patient understands the risk. I will treat her unbearable pain, which is limiting her function with cortisone injection this visit. In setting of new shoulder swelling, I will also further workup for pathology such as tendon injury or synovitis due to prior history of positive rheumatoid factor as it will aid in managing her pain. Code(s): M25.511 - Pain in right shoulder Category: Medical Qualifiers: Chronicity: chronic Qualified Code(s): M25.511 - Pain in right shoulder; G89.29 - Other chronic pain Plan: Patient received right shoulder cortisone injection Continue diclofenac gel 1% applied to affected area q.i.d. PRN. Avoid oral NSAIDs in setting of peptic ulcer disease. MRI right shoulder ordered Return to clinic in 3 months (2) Impingement syndrome of right shoulder region: Code(s): M75.41 - Impingement syndrome of right shoulder Category: Medical Plan: See above (3) Infrapatellar bursitis of right knee: Code(s): M70.51 - Other bursitis of knee, right knee Category: Medical Plan: PT ordered. Brace prescription given to patient last visit Try diclofenac gel 1% applied to affected area q.i.d. Return to clinic in 3 months (4) Fibromyalgia, primary: Comment: Chronic. Being managed by pain management and prior manager production Dr. Ashford. I discussed with patient that I do not manage fibromyalgia as it is a pain syndrome and not an autoimmune disease. Patient expressed understanding. Code(s): M79.7 - Fibromyalgia Category: Medical Plan: I will refill baclofen this visit giving her time to reach out to her care teams for future refills. Defer further refills of baclofen for chronic pain management to her pain management team or PCP Orders: Orders AMB Joint Injection/Aspiration Today G89.29 - Other chronic pain, M25.511 - Pain in right shoulder Medications: Refilled baclofen 10 mg PO TID PRN 270 tabs 0RF for muscle spasm M79.7 - Fibromyalgia Coding Level of Care Code Est Pt Level 3 (54981) Complex EM visit Add On G2211 Diagnoses Chronic right shoulder pain M25.511; G89.29 Chronicity: chronic Impingement syndrome of right shoulder region M75.41 Infrapatellar bursitis of right knee M70.51 Fibromyalgia, primary M79.7 CPT Codes Coding - 25444 Large joint: 98543 - Large joint ([id number])
--- OUTSIDE RECORDS SUMMARY | 2025-09-13 16:33 | XMS_ITS | Encounter Summary ---
Author Organization [facility] Address [address] [place] [address] Care Team Providers Care Communications And Signals Supervisor Name Role Phone Ho Araya Primary Care Provider Reason for Referral * Physical Therapy (Routine) - Pending Review Specialty Diagnoses / Procedures Referred By Arron yates Referred To Contact Physical Therapy Diagnoses Complex regional pain syndrome type 1 of left upper extremity Makayla Ayala MD MPH [address] [place] [address] Phone: tel: fax: [place] [address] Phone: tel: fax: Referral ID Status Reason Start Date Expiration Date Visits Requested Visits Authorized [id number] Pending Review Specialty Services Required 06/17/2025 07/18/2026 6 6 Encounter Details Date Type Department Care Team (Latest Contact Info) Description 06/17/2025 Transcribe Orders [facility] Vascular Surgery [address] [place] [address] Entry Level Sales Associate: Rupali Arias MD MPH [address] [place] [address] Complex regional pain syndrome type 1 [...] Care Team (Late st Contact Info) Description 09/30/2025 1:40 PM EST Office Visit [facility] Vascular Surgery [address] [place] [address] Entry Level Sales Associate: Makayla Mackey MD MPH [address] [place] [address] Scheduled Referrals Name Type Priority Associated Diagnoses Order Schedule Ambulatory referral to Physical Therapy Outpatient Referral Routine Complex regional pain syndrome type 1 of left upper extremity Expected: 06/17/2025, Expires: 07/18/2026 documented as of this encounter Visit Diagnoses Diagnosis Complex regional pain syndrome type 1 of left upper extremity- Primary documented in this encounter Care Teams Communications And Signals Supervisor Relationship Specialty Start Date End Date Ho Araya [address] [place] [phone] PCP - General Internal Medicine 11/15/24 documented as of this encounter
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
--- OUTSIDE RECORDS SUMMARY | 2025-09-13 16:33 | XMS_ITS | Clinical Summary ---
Author Organization [facility] Address [address] [place] [address] Phone Care Team Providers Care Corrugated Fastener Driver Name Role Phone Ho Araya MD Primary Care Provider [phone] Allergies Active Allergy Reactions Criticality Noted Date [...] by mouth 2 (two) times a day. 07/28/20 22 Active baclofen (LIORESAL) 10 mg tablet [...] and at bedtime 1200 mL 09/27/20 Active Additional Information Patient not taking.Reported on 08/24/2025 ondansetron (ZOFRAN) 8 mg tablet Take 1 tablet (8 mg total) by mouth 3 (three) times a day. 60 tablet 6 09/27/20 24 Active nutritional drink (Ensure) liquidIndicati ons:Complex regional pain syndrome type 1, affecting unspecified site,Weight loss,BMI less than 19,adult 1 bottle twice daily for weight loss / [place] Flavored 60 each 09/29/20 24 Active lidocaine (XYLOCAINE) 5 % ointment Apply topically 2 (two) times a day. 35.44 g 11/09/19 25 Active Ventolin HFA 90 mcg/actuation inhaler TAKE 2 PUFFS BY MOUTH EVERY 4 HOURS NEEDED FOR COUGH OR WHEEZING. 18 each 1 02/03/20 25 Active dicyclomine (BENTYL) 10 mg capsule TAKE 1 CAP BY MOUTH FOUR TIMES A DAY BEFORE MEALS AND BEDTIME. USE NEEDED FOR ABDOMINAL CRAMPING 360 capsule 1 02/08/20 25 Active Additional Information Patient taking differently: 10 mg oral 3 times daily with meals, Reported on 08/31/2025 ALPRAZolam (XANAX) 0.25 mg tablet Active cyanocobalamin [...] by mouth at bedtime as needed. 04/06/20 Active riboflavin (VITAMIN B2) 400 mg tablet Active sertraline (ZOLOFT) 25 mg tablet Take 1 tablet (25 mg total) by mouth 1 (one) time each day. 03/02/20 Active sodium fluoride-pot nitrate 1.1-5 % paste dental paste USE 2-3X/DAILY, SPIT OUT EXCESS. DO NOT RINSE WITH WATER. NO EATING OR DRINKING FOR 45 MIN AFTER Active predniSONE (DELTASONE) 10 mg tablet Take 4 tablets daily for 3 days than 3 tablets daily for 3 days than 2 tablets for 3 days than 1 tablet daily for 3 days 30 tablet 06/08/20 Active Additional Information Patient not taking.Reported on 08/24/2025 cetirizine (ZyrTEC) 10 mg tablet TAKE 1 TABLET BY MOUTH EVERY DAY 90 tablet 08/29/20 Active cetirizine (ZyrTEC) 10 mg tablet TAKE 1 TABLET BY MOUTH EVERY DAY 90 tablet 1 12/08/19 025 Discontinued Active Problems Problem Noted Date Diagnosed [...] after the accident originally, was seen at [facility], [facility], did not see much improvement. She had a brachial plexus block that lasted about 8 hours with good relief and then slowly tapered off. She states she has difficulty sleeping on either side due to pain. She was offered ketamine infusion but it is too expensive to pay [id number]. She is trying to get a second opinion with pain management in [place]. Patient had C-spine MRI 03/06/2025 at [facility] that showed broad-based disc bulging C5- 6, [...] 11/17/2020 Migraine 07/03/2018 Overview (08/12/2024): Seen at [facility], initial visit 09/26/2020. Nerve blocks and trigger point injections done 10/04/2020 and 01/04/2021. Gastroesophageal reflux disease without esophagi tis 11/08/2016 Overview (04/14/2025): Gastro-esophageal reflux disease without esophagitis; Note: Date Diagnosed: 11/08/2016 2:47 PM (K21.9) Acne vulgaris 08/21/2016 Asthma 01/09/2012 Encounters Date Type Department Care Team Description 08/31/2025 2:33 PM EDT Anesthesia Event [facility] [address] [place] [phone] Roshan Fuentes MD 08/31/2025 1:32 PM EDT - 08/31/2025 11:59 PM EDT Hospital Encounter [facility] [address] [place] [phone] Stiven Villa MD Dasilva, John E, MD Epigastric abdominal pain Discharge Disposition: Home or Self Care 08/10/2025 Telephone [facility] [address] [place] [phone] Ho Araya MD 06/29/2025 3:45 PM EDT Office Visit Orthopedic Surgery [facility] [address] [facility] [address] [place] [address] Ho Garcia MD Fibromyalgia (Primary Dx); Chronic right shoulder pain; Autoimmune disorder of autonomic nervous system 06/16/[address]25 [address] [facility] 175 [facility] [address] [place] [address] Katelyn Austin MA from Last 3 Months Immunizations Immunization Administration Dates Next Due HPV, Quadrivalent 08/11/2008,01/20/2008,09/03/20 [...] Date Comments Asthma Migraines 07/03/2018 Seen at [facility], initial visit 09/26/2020. Nerve blocks and trigger point injections done 10/04/2020 and 01/04/2021. 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[facility], a diagnosis confirmed by a heel stiffener Orthostatic hypotension tilt tab le test conducted by a garage door technician revealed positive results CRPS (complex regional pain syndrome type I) Family History Medical History Relation Name Comments [...] drink = 0.6 oz pur e alcohol) Interpersonal Safety Answer Date Record ed Physical Abuse Unrecognized value 08/31/2025 Verbal Abuse Unrecognized value 08/31/2025 Comments No Sex and Gender Information Value Date Recorded Sex Assigned at Not on file Legal Sex Female 5:35 PM EST Gender Identity Not on file Sexual Orientation Not on file Obstetrics History Last Filed Vital Signs Vital Sign Reading Time Taken Comments Blood Pressure 109/71 08/31/2025 3:02 PM EDT Pulse 76 08/31/2025 3:02 PM EDT Temperature 36.1 C (97 F) 08/31/2025 2:42 PM EDT Respiratory Rate 16 08/31/2025 3:02 PM EDT Oxygen Saturation 98% 08/31/2025 3:02 PM EDT Inhaled Oxygen Concentration - - Weight 60.8 kg (134 lb) 08/31/2025 2:19 PM EDT Height 167.6 cm (5' 6 ) 08/31/2025 2:19 PM EDT Body Mass Index 21.63 08/31/2025 2:19 PM EDT Plan of Treatment Upcoming Encounters Date Type Department Care Team (Late st Contact Info) Description 11/17/2025 9:[address] [facility] [address] [place] [address] 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, PUMP STITCHER Health Maintenance Due Date Last Done Comments Hepatitis B Vaccines (1 of 3 - 19+ 3-dose series) 2011 Pneumococcal Vaccine: Pediatrics (0 to 5 Years) and At-Risk Patients (6 to 49 Years) (1 of 2 - PCV) 2011 Cervical Cancer Screening: Pap Smear 2013 HIV Screening 10/05/2022 Medicare Annual Wellness Visit 10/05/2022 Social Influencers of Health Screening 10/05/2022 Depression Screening 11/03/2024 05/12/2024 COVID-19 Vaccine ( - season) 2025 Influenza Vaccine (#1) 2025 , 08/28/2020, 08/02/2019, Additional history exists Cholesterol Screening (Lipid Panel) 05/12/2029 05/12/2024, 05/12/2024 DTaP,Tdap,and Td Vaccines (4 - Td or Tdap) 08/23/2029 08/23/2019, 08/11/2014, 03/23/2004 RSV Immunization Adult Patients (1 - 1-dose 75+ series) 2067 Varicella Vaccines Aged Out 09/03/2007 No longer [...] on patient's age to complete this topic Goals Goal Patient Goal Type Associated Problems Recent Progress Patient-Stated? Author Autogenera lowell Goal Care Plan Autogenerated Problem No Sherine Moore Procedures Procedure Name Priority Date/Time Associated Diagnosis Comments EGD Routine 08/31/2025 2:41 PM EDT Epigastric abdominal pain TISSUE EXAM Routine 08/31/2025 2:39 PM EDT Epigastric abdominal pain POC PREGANCY, URINE NO CHARGE SCREENING MANUALLY RESULTED Routine 08/31/2025 2:10 PM EDT EXTERNAL CLINICAL LAB 07/18/2025 EXTERNAL CLINICAL LAB 07/18/2025 EXTERNAL CLINICAL LAB 07/15/2025 DEPRESSION SCREENING Routine 05/12/2024 LIPID PANEL Routine 05/12/2024 HEPATITIS C SCREENING Routine 11/17/2020 from Last 3 Months or Most Recently Relevant to Health Maintenance Results * EGD Anesthesia - MAC; [facility] ENDOSCOPY (08/31/2025 2:41 PM EDT) Anatomical Region Laterality Modality Other 08/31/2025 2:33 PM EDT Impressions 08/31/2025 2:44 PM EDT - Biopsies were taken with a cold forceps for histology in the gastric body. Recommendation: - Await pathology results. - Observe patient's clinical course. Narrative 08/31/2025 2:[address] [facility] Patient Name: Jarrett Dykes Procedure Date: 08/31/2025 2:33 PM Date of : 1990 Age: 34 Gender: Female Note Status: Finalized Attending MD: Stiven Villa MD, Procedure Date No Time: 08/31/2025 Procedure: Upper GI endoscopy Indications: Epigastric abdominal pain Providers: Stiven Villa MD Referring MD: Stiven Villa MD Medicines: Propofol per Anesthesia Complications: No immediate complications. Estimated Blood Loss: Estimated blood loss was minimal. Procedure: Pre-Anesthesia Assessment: - ASA Grade Assessment: II - A patient with mild systemic disease. After obtaining informed consent, the endoscope was passed under direct vision. Throughout the procedure, the patient's blood pressure, pulse, and oxygen saturations were monitored continuously.The Endoscope was introduced through the mouth, and advanced to the second part of duodenum. The upper GI endoscopy was accomplished without difficulty. The patient tolerated the procedure well. Findings: Biopsies were taken with a cold forceps in the gastric body for histology. Estimated blood loss was minimal. Procedure Code(s): --- Professional --- 12966, Esophagogastroduodenoscopy, flexible, transoral; with biopsy, single or multiple Diagnosis Code(s): --- Professional --- R10.13, Epigastric pain CPT copyright 2020 [employer]. All rights reserved. The codes documented in this report are preliminary and upon cotton broker review may be revised to meet current compliance requirements. Stiven Villa MD 08/31/2025 2:44:03 PM This report has been signed electronically.Stiven Villa MD Number of Addenda: 0 Note Initiated On: 08/31/2025 2:33 PM Scope In: Scope Out: Endoscopy Department at [facility] - [address] [place] [phone] Procedure Note Stiven Villa MD - 08/31/2025 [facility] Patient Name: Jarrett Dykes Procedure Date: 08/31/2025 2:33 PM Date of : 1990 Age: 34 Gender: Female Note Status: Finalized Attending MD: Stiven Villa MD, Procedure Date No Time: 08/31/2025 Procedure: Upper GI endoscopy Indications: Epigastric abdominal pain Providers: Stiven Villa MD Referring MD: Stiven Villa MD Medicines: Propofol per Anesthesia Complications: No immediate complications. Estimated Blood Loss: Estimated blood loss was minimal. Procedure: Pre-Anesthesia Assessment: - ASA Grade Assessment: II - A patient with mild systemic disease. After obtaining informed consent, the endoscope was passed under direct vision. Throughout theprocedure, the patient's blood pressure, pulse, and oxygen saturations were monitored continuously.TheEndoscope was introduced through the mouth, and advanced tothe second part of duodenum. The upper GI endoscopy was accomplished without difficulty. The patienttolerated the procedure well. Findings: Biopsies were taken with a cold forceps in thegastric body for histology. Estimated blood loss wasminimal. Procedure Code(s): --- Professional --- 79016, Esophagogastroduodenoscopy, flexible, transoral; with biopsy, single or multiple Diagnosis Code(s): --- Professional --- R10.13, Epigastric pain CPT copyright 2020 [employer]. All rights reserved. The codes documented in this report are preliminary and upon cotton broker reviewmay be revised to meet current compliance requirements. Stiven Villa MD 08/31/2025 2:44:03 PM This report has been signed electronically.Stiven Villa MD Number of Addenda: 0 Note Initiated On: 08/31/2025 2:33 PM Scope In: Scope Out: Endoscopy Department at [facility] - [address] [place] [phone] IMPRESSION: - Biopsies were taken with a cold forceps for histology in the gastric body. Recommendation: - Await pathology results. - Observe patient's clinical course. us Stiven Villa MD GI~PROCEDURE ORDERABLES Final Re sult * Tissue exam (08/31/2025 2:39 PM EDT) Final Diagnosis A. Stomach, body biopsies: - Gastric oxyntic mucosa with no specific pathologic changes. - No Helicobacter pylori organisms are morphologically identified. 09/01/2025 11:10 AM EDT [facility] at 1110 EDT Gross Description A. Stomach, body biopsies: Labeled body biop stomach . Received in formalin are two soft, mendoza-red tissue fragments measuring approximately 0.5 cm in greatest diameter, which are wrapped in paper and submitted in toto in one cassette, two pieces, multiple levels. TS 09/01/2025 11:10 AM EDT [facility] Disclaimer Unless otherwise specified, all tissue is 10% NB formalin fixed and paraffin embedded. 09/01/2025 11:10 AM EDT [facility] Tissue Stomach structure / Unknown 08/31/2025 2:39 PM EDT 08/31/2025 3:51 PM EDT us Stiven Villa MD LAB PATHOLOGY ORDERABLES Final R esult [facility] [address] [place] [address], * POC , urine NO CHARGE screening manually resulted (08/31/2025 2:10 PM EDT) Pathologist [facility] HCG, Ur POC Negative Negative POC hCG Int QC Pass? Yes Yes Urine Urine specimen obtained by clean catch procedure / Unknown 08/31/2025 2:[address] [facility] Lynn White MD POINT OF CARE TEST ENTER/ EDIT ORDERABLES Final Result * External clinical lab (07/18/2025) Only the most recent of3 resultswithin the time period is included. Result [facility] Nahed Palomares Onbase LAB BLOOD ORDERABLES Fin al Result * Depression Screening (05/12/2024) Pathologist [facility] Depression Screening abstracted Result [facility] Historical Nahed [facility] [employer]TENANCE Final Result * Lipid panel (05/12/2024) [facility] LDL/HDL Ratio 3 0 - 4 Triglycerides 56 0 - 150 mg/dL Cholesterol 173 0 - 200 mg/dL HDL 68 >=40 mg/dL LDL Cholesterol 94 0 - 100 mg/dL Blood Venous blood specimen / Unknown Result [facility] Historical Nahed MENEN[facility] LAB BLOOD ORDERABLES Katy l Result * Hepatitis C Screening (11/17/2020) Pathologist [facility] Hepatitis C Screening abstracted Result [facility] Historical Provider HEALTH MAINTENANCE Final Result from Last 3 Months or Most Recently Relevant to Health Maintenance Additional Health Concerns Active Problems Noted Date Diagnosed Date Autogenerated Problem 08/02/2025 Infection Onset Date Last Indicated Enteroaggregative E. coli (EAEC) 05/10/2025 05/10/2025 Insurance MEDICARE [place]ICAID - [place] Care Teams Corrugated Fastener Driver Relationship Specialty Start Date End Date Ho Araya MD [address] [place] [phone] PCP - General Internal Medicine 07/25/15
--- OUTSIDE RECORDS SUMMARY | 2025-09-13 16:33 | XMS_ITS | Clinical Summary ---
Author Organization [facility] Address [address] [place] [address] Care Team Providers Care Patent Agent Name Role Phone Ho Araya Primary Care Provider [phone] Allergies Active Allergy Reactions Criticality Noted Date [...] mg by mouth once a day. Active Encounters Date Type Department Care Team Description 08/10/2025 Telephone [facility] Vascular Surgery [address] [place] [phone] First Sampler: Makayla Mackey MD MPH 07/22/2025 Orders Only [facility] Vascular Surgery [address] [place] [phone] First Sampler: Makayla Mackey MD MPH TOS (thoracic outlet syndrome) (Primary Dx) 06/20/2025 Telephone [facility] Vascular Surgery [address] [place] [phone] First Sampler: Aspen Vaughan Telephone Intake, Staff PAC Appt Request - Established 06/17/2025 Transcribe Orders [facility] Vascular Surgery [address] [place] [phone] First Sampler: Rupali Arias MD MPH Complex regional pain syndrome type 1 of left upper extremity (Primary Dx) 06/15/2025 Telephone [facility] Vascular Surgery [address] [place] [phone] First Sampler: Aspen Vaughan Telephone Intake, Staff PAC General Info_Jamie from Last 3 Months Social History Tobacco [...] Description 09/30/2025 1:40 PM EST Office Visit [facility] Vascular Surgery [address] [place] [address] First Sampler: Makayla Mackey MD MPH [address] [place] [address] Health Maintenance Due Date Last Done Comments Cervical Cancer Screening 1992 HIV Screening 1992 HPV and Pap Smear 1992 Hepatitis C Screening 1992 Pap Smear 1992 Medicare AWV 1993 Varicella Vaccines (2 of 2 - 13+ 2-dose series) 10/01/2007 09/03/2007 Hepatitis B Vaccines (1 of 3 - 19+ 3-dose series) 2011 Pneumococcal Vaccine: Pediat alan (0-5 Years) and At-Risk Patients (6-50 Years) (1 of 2 - PCV) 2011 Alcohol/Substance Use Screening 11/03/2024 Depression Screening and Follow-Up 11/03/2024 Social Drivers of Health Carmita ual Screening 11/03/2024 COVID-19 Vaccine (1 - 2024-2 6 season) 2025 Influenza Vaccine (#1) 2025 , 08/28/2020, 08/02/2019, Additional history exists DTaP,Tdap,and Td Vaccines (4 - Td or Tdap) 08/23/2029 08/23/2019, 08/11/2014, 03/23/2004 Insurance [facility] MEDICARE Care Teams Patent Agent Relationship Specialty Start Date End Date Ho Araya [address] [place] [phone] PCP - General Internal Medicine 11/15/24
--- OUTSIDE RECORDS SUMMARY | 2025-09-13 16:33 | XMS_ITS | Clinical Summary ---
Author Organization [facility] Address [address] [place] [address] Care Team Providers Care Spinning Bath Patroller Name Role Phone Wendi Toney MD Primary [...] Pap Smear (Ages 21-65) 2013 Influenza Vaccine 06/03/2025 COVID-19 Vaccine (1 - 2023-2 5 season) 2025 HPV Vaccines (No Doses Required) Completed Pneumococcal Vaccine: Pediat alan (0-5 Years) and At-Risk Patients (6 to 49 Years) Aged Out No longer eligible b ased on patient's age to complete this topic [place] [address] [place] [address] COMMERCIAL on file Care Teams Spinning Bath Patroller Relationship Specialty Start Date End Date Wendi Toney MD [address] [place] [address] PCP - General Internal Medicine 08/31/20
--- OUTSIDE RECORDS SUMMARY | 2025-09-13 16:33 | XMS_ITS | Clinical Summary ---
Author Organization [facility] Address [address] [place] [phone] Phone Care Team Providers Care Road Freight Firer Name Role Phone Ho Araya MD Primary [...] 2013 INFLUENZA VACCINE (#1) 2025 COVID-19 VACCINE (2024-2 6 season) 2025 HEPATITIS A VACCINES Aged Out No long er eligible based on patient's age to complete this topic HIB VACCINES Aged Out No longer eligi ble based on patient's age to complete this topic IPV VACCINES Aged Out No longer eligi ble [...] topic Medical Devices Not on file Insurance [employer] [facility] [place] [place] [address]CO Care Teams Road Freight Firer Relationship Specialty Start Date End Date Ho Araya MD [address] [place] [phone] PCP - General Internal Medicine 09/01/24 Additional Source Comments The information contained in this document represents components of the legal health record. It is not the complete legal health record.[facility]
--- OUTSIDE RECORDS SUMMARY | 2025-09-13 16:33 | XMS_ITS | Encounter Summary ---
Author Organization [facility] Address [address] [place] [address] Care Team Providers Care Continuity Tester Name Role Phone Ho Araya MD Primary Care Provider [phone] Encounter Details Date Type Department Care Team (Late Contact Info) Description 09/24/2024 Lab Requisition [facility] Lab [address] [place] [address] Sergio Gross PA [address] [facility] [address] [place] [phone] Other microscopic hematuria Social History Tobacco Use [...] Department Care Team (Late Contact Info) Description 11/17/2025 9:30 AM EST Appointment [facility]ray [address] [place] [id number] 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, PROGRAM DEVELOPMENT MANAGER documented as of this encounter Procedures Procedure [...] [facility] Clinical Information [id number], Urine cyto/urine FISH. 10/12/2024 9:06 AM [facility] Gross Description A. Urine, Voided, : [id number] recd 1 TP cyto 1 TP fish. 10/12/2024 9:06 AM [facility] Disclaimer Unless otherwise specified, all tissue is 10% NB formalin fixed and paraffin embedded. 10/12/2024 9:06 AM [facility] Tissue Urine specimen from urethra / Unknown 09/21/2024 09/24/2024 1:47 PM EST us Sergio [facility] PATHOLOGY ORDERABLES Edite d Result - Final [facility] [address] [place] [address], documented in this encounter Visit Diagnoses Diagnosis Other microscopic hematuria documented in this encounter Additional Health Concerns Infection Onset Date Last Indicated Resolved Time Gastrointestinal Rule-Out 05/10/2025 05/10/2025 1:13 PM EDT C. difficile Rule-Out 05/10/2025 05/10/20252024 12:00 PM EDT Enteroaggregative E. coli (EAEC) 05/10/2025 05/10/20 25 documented as of this encounter Care Teams Continuity Tester Relationship Specialty Start Date End Date Ho Araya MD [address] [place] [address] PCP - General Internal Medicine 07/25/15 documented as of this encounter
== END 2025-09-13 15:22 | disposition home or self-care (01) ==
LOC: HO.RHES 14:46
PROVIDERS: PCP Internal Medicine; Visit Provider Internal Medicine Rheumatology
DX: M25.511 Pain in right shoulder (principal); M75.41 Impingement syndrome of right shoulder; G89.29 Other chronic pain; M70.51 Other bursitis of knee, right knee; M79.7 Fibromyalgia
CPT/HCPCS: 20610; 99213

== ENCOUNTER → 2025-09-13 14:46 | Outpatient (BNVA) | payer MEDICARE, MEDICAID, SELFPAY | PROVIDERS: PCP Internal Medicine; Visit Provider Internal Medicine Rheumatology | DX: M25.511 Pain in right shoulder (principal); G89.29 Other chronic pain; M75.41 Impingement syndrome of right shoulder; M70.51 Other bursitis of knee, right knee; M79.7 Fibromyalgia | CPT/HCPCS: 20610; 99212; J2003; J3301 ==

== ENCOUNTER 2025-09-26 10:17 | Outpatient (AMB) | payer MEDICARE, MEDICAID, SELFPAY ==
[2025-09-26 10:19] VITALS: BP 90/62; PULSE 91; BMI 20.6
--- NOTE | 2025-09-26 10:19 | MHC.OFFVIS ---
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 Required: No Allergies ibuprofen (From Motrin) Allergy (Severe, Verified 09/26/25 10:22) Unknown metoclopramide (From REGLAN) Allergy (Mild, Verified 09/26/25 10:22) ANXIETY Penicillins (PENICILLINS) Allergy (Unknown, Verified 09/26/25 10:22) RASH Medication List - Last Reconciled 09/26/25 by JULIAN MembrenoC albuterol sulfate mg inhalation baclofen 10 mg PO TID PRN cetirizine 10 mg PO DAILY cholecalciferol (vitamin D3) 1,250 mcg PO QWEEK 12 days cyanocobalamin (vitamin B-12) 500 mcg PO DAILY 30 days diclofenac sodium 1% Apply to affected area every 4-6 hours as needed fluticasone propionate 50 mcg/actuation 1 spray intranasal BID leg brace (Knee Support Brace) As directed Knee brace Dx: infrapetallar bursitis, hypermobility lidocaine 5% 1 patch topical DAILY midodrine 2.5 mg PO TID naratriptan take 1 tab at onset of headache; if no relief may repeat 1 tab after at least 4 hrs; max = 2 tabs/24 hrs PO 30 days onabotulinumtoxinA (Botox) 200 units IM ONCE 12 weeks ondansetron HCl 8 mg PO DAILY pantoprazole mg PO DAILY polyethylene glycol 3350 (Gavilax) grams PO pregabalin 200 mg PO TID 30 days riboflavin (vitamin B2) 400 mg PO DAILY 30 days rimegepant (Nurtec ODT) 75 mg PO ONCE PRN 30 days MDD 1 tab sertraline 50 mg PO DAILY zolpidem 5 mg PO BEDTIME PRN HPI HPI 7 wk f/up r/s 08/12/25: Details: Alondra is a 34-year-old female with past medical history of fibromyalgia, complex regional pain syndrome, orthostatic hypotension who was started on Midodrine last visit and now presents for follow-up. Today she reports that midodrine has helped some with the heart palpitations and lightheadedness when she is upright. She has been only taking it 2 times daily in the morning and around noon time. It has caused her to have some tingling in her head. She says her blood pressures have been better but she is still documenting low blood pressures at times and having lightheadedness. She has not had any full presyncope, syncope or falls. She is quite sedentary and limited by her body pain. She recently started on ketamine infusions to help with the chronic pain she experiences. She is very sensitive to changes in temperature and has been mostly staying in her home. She continues to increase her daily fluid and salt intake. She was unable to tolerate compression stockings due to significant discomfort when they are applied. She does follow with neurology. 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 Review of Systems Const Details: uncomfortable appearing, body pain All systems reviewed & are unremarkable except as noted in HPI and below ENT Reports dizziness Card Denies chest pain, Denies chest pain at rest, Denies chest pain with activity, Denies rapid heart rate, Denies pedal edema, Denies edema, Denies leg edema, Denies lightheadedness, Denies palpitations, Denies dyspnea, Denies dyspnea on exertion and Denies orthopnea Resp Denies cough, Denies dyspnea and Denies dyspnea on exertion GI Denies hematochezia and Denies change in stool character Musc Reports abnormal gait (pain with movement), Reports limited range of motion, Denies muscle cramps, Denies muscle weakness, Denies numbness, Denies radiating pain into limb, Denies stiffness and Denies tingling Neuro Reports abnormal gait (pain with movement), Reports dizziness, Denies numbness and Denies tingling Endo Denies palpitations Physical Exam Vital Signs: BMI result Body Mass Index 20.6 Const Other: uncomfortable appearing General: no acute distress Orientation/consciousness: patient oriented x3 Neck Neck: Yes normal visual inspection Resp Effort & Inspection: normal respiratory effort Auscultation: clear to auscultation bilaterally, no rales, no rhonchi and no wheezes Cardio Rate: regular rate Rhythm: regular rhythm Heart sounds: S1 normal heart sound present, S2 normal heart sound present, no gallops, no murmurs and no rubs Neuro General: patient oriented x3 Extrem General: Yes normal to inspection Psych Appearance: grossly normal Mental Status: mental status grossly normal Speech and movement: Normal speech and movement present Assessment & Plan Assessment & Plan (1) Orthostatic hypotension: Code(s): I95.1 - Orthostatic hypotension Category: Medical Plan: Symptoms of heart palpitations and lightheadedness. Echocardiogram 02/04/2025 shows normal EF and no valve or regional wall motion abnormalities. Holter monitor 02/04/2025 for 14 days shows sinus rhythm with average heart rate 84, rare ectopy. Tilt-table test 04/05/2025 shows finding consistent with orthostatic hypotension. She has tried increase fluid and salt intake without improvement in symptoms. Unable to wear compression stockings. Very mildly orthostatic on exam today. Blood pressure sitting 108 over 66 and standing 102/72. She has been on midodrine 2.5 mg b.i.d. which she says is helping some. Suggested she try taking 5 mg b.i.d., in the a.m. and at noon time to see if this continues to help with her lightheadedness and heart palpitations when she is upright. Encouraged increased physical activity as tolerated, which is currently limited by severe body pain. Ongoing good hydration, increased salt intake. Continue to follow with pain management efforts. Cardiology follow-up 4 months, sooner if needed (2) Dizziness: Code(s): R42 - Dizziness and giddiness Category: Medical Plan: As above (3) Palpitations: Code(s): R00.2 - Palpitations Category: Medical Plan: Reports of heart palpitations like her heart is beating fast and fluttering at times when she is upright. Holter monitor did not show anything concerning. She did have rare ectopy which may be contributing to her fluttering. Her symptoms correlated with sinus rhythm/sinus tach. Reduction in caffeinated beverages reviewed. Midodrine has helped control some of the palpitations. (4) Complex regional pain syndrome of left upper extremity: Code(s): G90.512 - Complex regional pain syndrome I of left upper limb Category: Medical Qualifiers: Complex regional pain syndrome type: type I Qualified Code(s): G90.512 - Complex regional pain syndrome I of left upper limb Plan: Follows with neurology. Plan I discussed with the patient that the current low dose of midodrine may be insufficient to control the symptoms of orthostatic hypotension. I recommended a trial of an increased dose, 5 mg twice daily (morning and noon), to assess for improved symptomatic relief of lightheadedness and better blood pressure control. I explained that this may also help lower the patient's heart rate by reducing the heart's workload. I instructed the patient to use the extra pills from the current prescription to trial this new dose and to contact me via the patient portal regarding its effectiveness. We also addressed the tingling side effect, and I explained it might be a temporary reaction to the increased blood pressure that could resolve over time. I advised the patient to reduce the dose if this side effect worsens. I reinforced the importance of hydration, salt intake, and continued physical activity despite pain to combat deconditioning. I expressed support for the patient's ongoing pain management with other specialists, including the new ketamine infusions, and scheduled a follow-up visit in four months. Patient Instructions: - Try increasing your midodrine dose to 5 mg in the morning and 5 mg at lunchtime. - Do not take the medication after 5 or 6 p.m. or before you go to bed. - Use your extra pills to try this new dose for a few days. - Send a message through the patient portal to let me know if the 5 mg dose is helping with your lightheadedness and other symptoms. - If the tingling sensation on your head gets worse or you do not like how you feel on the higher dose, go back to taking the 2.5 mg pill. - Remember to drink enough fluids and add salt to your diet. - It is very important to keep moving as much as you can, even though you are in pain. - Continue to see your other doctors for your pain. - Follow up here in four months. Patient was informed and verbally consented to the use of an ambient scribe for clinic note documentation during this visit. Visit time spent on chart review, interview, assessment, orders, documentation. Coding Level of Care Code Est Pt Level 4 (59635) Complex visit Add On G2211 Diagnoses Orthostatic hypotension I95.1 Dizziness R42 Palpitations R00.2 Complex regional pain syndrome type 1 of left upper extremity G90.512 Complex regional pain syndrome type: type I Time Spent (min) 28
--- OUTSIDE RECORDS SUMMARY | 2025-09-26 12:39 | XMS_ITS | Data Portability ---
Author Organization [place] - [facility], Allergy Address [address] [address] Care Team Providers Care Finishing Room Supervisor Name Role Phone ANNALISASAIDA MARLYN Primary Care [...] tissue neck w/ contrast on 03/06/2025 at [facility] was benign without mass, soft tissue [...] [place], modified barium swallow study 2024 025 [email or web address] [facility], [address] [place], [address], 5 11:38:27 Medication Orders epinephrine 0.3 mg/0.3 mL injection, auto-inject or 2024 025 [facility][id number], [phone] [place], [address], 5 10:26:56 Patient TargetsNo targets recorded. Patient [...] Available [facility] ([facility]) [address] [place], [address], 10/29/2024 23:16:49 10/28/20 24 10/29/2024 ALLER GENS, ZONE 1 J554-EiP D pteronyssinu s 0.16 kU/L class 0/I abnormal Not Available [facility] ([facility]) [address] [place], [address], 10/29/2024 23:16:49 10/28/20 24 10/29/2024 ALLER GENS, ZONE 1 V892-WnC D farinae 0.12 kU/L class 0/I abnormal Not Available [facility] ([facility]) [address] [place], [address], 10/29/2024 23:16:49 10/28/20 24 10/29/2024 ALLER GENS, ZONE 1 T259-MiY CAT dander 0.12 kU/L class 0/I abnormal Not Available [facility] ([facility]) [address] [place], [address], 10/29/2024 23:16:49 10/28/20 24 10/29/2024 ALLER GENS, ZONE 1 K329-ToI dog dander 5.14 kU/L class IV abnormal Not Available [facility] ([facility]) [address] [place], [address], 10/29/2024 23:16:49 10/28/20 24 10/29/2024 ALLER GENS, ZONE 1 k103-ShU bermuda grass <0.10 kU/L class 0 Not Available [facility] ([facility]) [address] [facility], [place], [address], 10/29/2024 23:16:49 10/28/20 24 10/29/2024 ALLER GENS, ZONE 1 d939-LrK bluegrass, marcelo <0.10 kU/L class 0 Not Available [facility] ([facility]) [address] [place], [address], 10/29/2024 23:16:49 10/28/20 24 10/29/2024 ALLER GENS, ZONE 1 k346-QnR bahia grass <0.10 kU/L class 0 Not Available [facility] ([facility]) [address] [place], [address], 10/29/2024 23:16:49 10/28/20 24 10/29/2024 ALLER GENS, ZONE 1 K150-OwN cockroach, moldovan 0.10 kU/L class 0/I abnormal Not Available [facility] ([facility]) [address] [place], [address], 10/29/2024 23:16:49 10/28/20 24 10/29/2024 ALLER GENS, ZONE 1 D278-GpG penicillium chrysogen <0.10 kU/L class 0 Not Available [facility] ([facility]) [address] [place], [address], 10/29/2024 23:16:49 10/28/20 24 10/29/2024 ALLER GENS, ZONE 1 K370-QzZ cladosporium herbarum <0.10 kU/L class 0 Not Available [facility] ([facility]) [address] [place], [address], 10/29/2024 23:16:49 10/28/20 24 10/29/2024 ALLER GENS, ZONE 1 M360-UuF aspergillus fumigatus <0.10 kU/L class 0 Not Available [facility] ([facility]) [address] [place], [address], 10/29/2024 23:16:49 10/28/20 24 10/29/2024 ALLER GENS, ZONE 1 X178-EiY mucor racemosus <0.10 kU/L class 0 Not Available [facility] ([facility]) [address] [place], [address], 10/29/2024 23:16:49 10/28/20 24 10/29/2024 ALLER GENS, ZONE 1 W254-VbP alternaria alternata <0.10 kU/L class 0 Not Available [facility] ([facility]) [address] [facility], [address], 10/29/2024 23:16:49 10/28/20 24 10/29/2024 ALLER GENS, ZONE 1 B601-BaK stemphylium herbarum <0.10 kU/L class 0 Not Available [facility] ([facility]) [address] [facility] [place], [address], 10/29/2024 23:16:49 10/28/20 24 10/29/2024 ALLER GENS, ZONE 1 G892-WkH common silver birch 3.39 kU/L class III abnormal Not Available [facility] ([facility]) [address] [facility] [place], [address], 10/29/2024 23:16:49 10/28/20 24 10/29/2024 ALLER GENS, ZONE 1 L466-HjE oak, white 10.60 kU/L class IV abnormal Not Available [facility] ([facility]) [address] [facility] [place], [address], 10/29/2024 23:16:49 10/28/20 24 10/29/2024 ALLER GENS, ZONE 1 Z518-HzZ elm, moldovan <0.10 kU/L class 0 Not Available [facility] ([facility]) [address] [place], [address], 10/29/2024 23:16:49 10/28/20 24 10/29/2024 ALLER GENS, ZONE 1 D278-PiD samira, white <0.10 kU/L class 0 Not Available [facility] ([facility]) [address] [facility], [place], [address], 10/29/2024 23:16:49 10/28/20 24 10/29/2024 ALLER GENS, ZONE 1 D546-IbL maple/box elder 0.23 kU/L class 0/I abnormal Not Available [facility] ([place] [facility]) [address] [facility], [place], [address], 10/29/2024 23:16:49 10/28/20 24 10/29/2024 ALLER GENS, ZONE 1 N808-SzW hazelnut tree 1.25 kU/L class II abnormal Not Available [facility] ([facility]) [address] [facility], [place], [address], 10/29/2024 23:16:49 10/28/20 24 10/29/2024 ALLER GENS, ZONE 1 T110-FrC hickory, white 0.13 kU/L class 0/I abnormal Not Available [facility] ([facility]) [address] [facility], [place], [address], 10/29/2024 23:16:49 10/28/20 24 10/29/2024 ALLER GENS, ZONE 1 B851-KvV white mulberry <0.10 kU/L class 0 Not Available [facility] ([facility]) [address] [facility], [place], [address], 10/29/2024 23:16:49 10/28/20 24 10/29/2024 ALLER GENS, ZONE 1 W086-NsC cedar, mountain <0.10 kU/L class 0 Not Available [facility] ([facility]) [address] [facility], [place], [address], 10/29/2024 23:16:49 10/28/20 24 10/29/2024 ALLER GENS, ZONE 1 R891-MkW ragweed, short <0.10 kU/L class 0 Not Available [facility] ([facility]) [address] [facility], [place], [address], 10/29/2024 23:16:49 10/28/20 24 10/29/2024 ALLER GENS, ZONE 1 N532-MtR mugwort <0.10 kU/L class 0 Not Available [facility] ([facility]) [address] [facility], [place], [address], 10/29/2024 23:16:49 10/28/20 24 10/29/2024 ALLER GENS, ZONE 1 F529-IcE plantain, kuwaiti <0.10 kU/L class 0 Not Available [facility] ([facility]) [address] [facility], [place], [address], 10/29/2024 23:16:49 10/28/20 24 10/29/2024 ALLER GENS, ZONE 1 Z148-UpW pigweed, common <0.10 kU/L class 0 Not Available [facility] ([facility]) [address] [facility], [place], [address], 10/29/2024 23:16:49 10/28/20 24 10/29/2024 ALLER GENS, ZONE 1 F987-QrK sheep sorrel <0.10 kU/L class 0 Not Available [facility] ([facility]) [address] [facility], [place], [address], 10/29/2024 23:16:49 10/28/20 24 10/29/2024 ALLER GENS, ZONE 1 F010-ScE nettle <0.10 kU/L class 0 Not Available [facility] ([facility]) [address] [facility], [place], [address], 10/29/2024 23:16:49 10/28/20 24 10/29/2024 FOOD ALLER GY PROFI LE S871-VuD egg white 0.21 kU/L class 0/I abnormal Not Available [facility] ([facility]) [address] [place], [address], 10/29/2024 23:16:50 10/28/20 24 10/29/2024 FOOD ALLER GY PROFI LE N487-TwA peanut <0.10 kU/L class 0 Not Available [facility] ([facility]) [address] [place], [address], 10/29/2024 23:16:50 10/28/20 24 10/29/2024 FOOD ALLER GY PROFI LE R000-FcX soybean <0.10 kU/L class 0 Not Available [facility] ([facility]) [address] [place], [address], 10/29/2024 23:16:50 10/28/20 24 10/29/2024 FOOD ALLER GY PROFI LE B649-HyF milk 0.66 kU/L class II abnormal Not Available [facility] ([facility]) [address] [place], [address], 10/29/2024 23:16:50 10/28/20 24 10/29/2024 FOOD ALLER GY PROFI LE F223-PiA clam <0.10 kU/L class 0 Not Available [facility] ([facility]) [address] [place], [address], 10/29/2024 23:16:50 10/28/20 24 10/29/2024 FOOD ALLER GY PROFI LE N419-JjV shrimp 0.10 kU/L class 0/I abnormal Not Available [facility] ([facility]) [address] [place], [address], 10/29/2024 23:16:50 10/28/20 24 10/29/2024 FOOD ALLER GY PROFI LE J900-OoD walnut <0.10 kU/L class 0 Not Available [facility] ([facility]) [address] [facility], [place], [address], 10/29/2024 23:16:50 10/28/20 24 10/29/2024 FOOD ALLER GY PROFI LE H154-DeM codfish <0.10 kU/L class 0 Not Available [facility] ([facility]) [address] [facility], [place], [address], 10/29/2024 23:16:50 10/28/20 24 10/29/2024 FOOD ALLER GY PROFI LE Q449-NmK scallop <0.10 kU/L class 0 Not Available [facility] ([facility]) [address] [place], [address], 10/29/2024 23:16:50 10/28/20 24 10/29/2024 FOOD ALLER GY PROFI LE C604-PzO wheat <0.10 kU/L class 0 Not Available [facility] ([facility]) [address] [place], [address], 10/29/2024 23:16:50 10/28/20 24 10/29/2024 FOOD ALLER GY PROFI LE P536-EbR corn <0.10 kU/L class 0 Not Available [facility] ([facility]) [address] [place], [address], 10/29/2024 23:16:50 10/28/20 24 10/29/2024 FOOD ALLER GY PROFI LE A885-HlS sesame seed <0.10 kU/L class 0 Not Available [facility] ([facility]) [address] [place], [address], 10/29/2024 23:16:50 10/28/20 24 10/29/2024 IMMUN OGLOB ULIN E, TOTAL immunoglobul in E, total 81 IU/mL 6-495 Not Available [facility] ([facility]) [address] [place], [address], 10/29/2024 23:16:50 08/06/20 audio gram No observ ation record ed. [email or web address] Not Available 2023 15:00:15 08/27/20 audio gram No observ ation record ed. [email or web address] Not Available 08/04 11:42:10 05/27/20 audio gram No observ ation record ed. [email or web address] Not Available 2024 17:31:30 05/31/20 25 03/06/2025 CT, neck, soft tissu e, w/ contr ast No observ ation record ed. [email or web address] Not Available 05/04 10:20:45 05/31/2003/06/2025 MRI, cervi ezekiel spine , w/o contr ast No observ ation record ed. [email or web address] Not Available 05/04 10:38:12 Result Notes None recorded. Problems Name Problem SNOMED Code Status Onset Date Resolution Date Notes Provider Name and Address Organization Details Recorded Time Mass of neck 695497001 Active 2014 Localized swelling, mass and lump, neck; Note: Date Diagnosed : 5 5:39 AM (R22.1) Not Available [facility] 4 02:30:45 Neck swelling 303790499 Active 2014 Localized swelling, mass and lump, neck; Note: Date Diagnosed : 5 5:39 AM (R22.1) Not Available [facility] 4 02:30:45 Chronic pharyngit is 594360 Active 2016 Chronic sore throat; Note: Date Diagnosed : 11/08/2016 2:47 PM (J31.2) Not Available [facility] 4 02:30:50 Gastroeso phageal reflux disease without esophagit is 509700218 Active 2016 Gastro-es ophageal reflux disease without esophagit is; Note: Date Diagnosed : 11/08/2016 2:47 PM (K21.9) Not Available [facility] 4 02:30:44 Lesion of oral mucosa 30273365813 61869 Active 2016 Other lesions of oral mucosa; Note: Date Diagnosed : 11/08/2016 2:53 PM (K13.79) Not Available [facility] 4 02:31:01 Tinnitus of left ear 87099754137 06 Active 2023 LAVONNE RODRIGUEZ MD [address], [place], [address] , [place] - [facility] 4 11:32:24 Migraine 94021207 Active 2023 LAVONNE RODRIGUEZ MD [address], [place], [address] , [place] [facility] 4 11:32:34 Pharyngea l dysphagia 23259285618 105 Active 2023 LAVONNE RODRIGUEZ MD [address], [place], [address] , [place] [facility] 4 11:32:47 Abnormal auditory perceptio n 11325927 Active 2023 LAVONNE RODRIGUEZ MD [address], [place], [place], [address] , [place] [facility] 4 11:33:02 Abnormal auditory perceptio n 55253729 Active 2023 LION HEREDIA MD [address], [place], [address] , [place] [facility] 4 14:26:32 Neck pain 92911310 Active 2023 LION HEREDIA MD [address], [place], [address] , [place] [facility] 4 14:26:40 Pain of left temporoma ndibular joint 62059680239 435244 Active 2023 LION HEREDIA MD [address], [place], [address] , [place] [facility] 4 14:26:28 Posterior rhinorrhe a 03640273 Active 2023 Wendi Schreiber null, [place] - [facility] 4 10:48:17 Allergic rhinitis 15265064 Active 2023 Wendi Schreiber null, [place] [facility] 4 10:48:34 Perennial allergic rhinitis 497463157 Active 2023 PATIENCE HUIZAR, RMA [address] [facility],[place] [address], [place], [address] , [place] - [facility] 4 08:39:44 Dysphagia 81571594 Active 2024 WALE SANTIZO PA-C [address] [facility],[place] [address], [place], [address] , [place] [facility] 5 10:08:47 Chronic neck pain 75212088766 07 Active 2024 WALE SANTIZO PA-C [address] [facility],[place] [address], [place], [address] , [place] [facility] 5 11:49:53 Complex regional pain syndrome type I of left upper limb 87220935597 9105 Active 2024 WALE SANTIZO PA-C [address] [facility] [address], [place], [address] , [place] [facility] 5 11:50:30 Problem Notes None recorded. Procedures Surgical History Date Name Laterality Status Provider Name and Address Organization Details Recorded Time 05/27/20 Air & Speech Audio with Tymps - 75865, 40897 & 16749 completed MELODIE LOBO [address] [facility] [address], [place], [address], [place] [facility] 05/27/2025 09:39:31 01/25/20 25 Allergy Immunotherapy Injections completed BERTIN PAIGE RN [address] [facility], [place], [address], [place] [facility] 01/24/2025 10:49:11 08/27/20 Tympanometry - 02072 completed GIRISH CRESPO, AuD [address],[place] [address], [place], [address], [place] [facility] 08/27/2024 10:00:48 08/06/20 24 Air & Speech Audio with Tymps - 85968, 14384 & 65557 completed SIMBA ALEGRE MA, CCC-A [address] [facility],[address], [address], [place] [facility] 08/06/2024 14:03:16 03/18/20 24 Fiberoptic Laryngoscopy (Comprehensive) completed LAVONNE SIM MD [address] [facility],[address], [address], [facility] - [facility] 03/18/2024 11:32:05 03/18/20 24 Air only Audio - 55806 completed MORA WEAVER, AUD [address] [facility],[address], [address], [facility] - [facility] 03/18/2024 11:52:00 03/18/20 24 SRT & Speech Recognition - 09787 completed MORA WEAVER, AUD [address] [facility],[address], [address], [facility] - [facility] 03/18/2024 11:52:17 11/03/19 18 removal of sebaceous cyst completed Rizwan Castillo [place] - [facility] 03/18/2024 11:23:09 11/03/19 17 Breast augmentation w/implt completed Rizwan Castillo [place] - [facility] 03/18/2024 11:23:46 therapeutic cervical epidural injection completed LAVONNE SIM MD [address] [facility],[address], [address], [facility] - [facility] 03/18/2024 11:24:17 Imaging Results None recorded. Procedure Notes None recorded. Medical Equipment None Reported. Allergies Allergen ID Allergen Name Allergen Category Reaction Reaction Severity Criticality Documentation Date Start Date Code Code System Note Provider Name and Address Organization Details Recorded Time 17120 penicilli n V potassium medicatio n rash Not available Not available 03/16/2024 5 RxNorm React ion: unkno wn, unspe cifie d;; Not Available [facility] 4 00:54:41 Medications Name Sig Start Date [...] 1 tablet 2016 active Medicati on ID: [id number] P pam [place] By Name: Colleen jensen [...] Not Available Not Available [facility] t [facility] mg disintegr ating tablet DISSOLVE 1 TABLET ORALLY ONCE NEEDED FOR MIGRAINE HEADACHE FOR 30 DAYS, MAX DAILY DOSE: 1 TAB active Not Available Not Available No t Available Vitals Date Recorded Body height Body mass index (BMI) Body weight Provider Name and Address Organization Details Last Updated DateTime 12/30/2024 167.64 cm 20.3 kg/m2 96745.64 g Renetta Moulton [facility] 12/30/2024 10:12:43 Date Recorded Body height Body mass index (BMI) Body weight Heart rate Systolic And Diastolic Provider Name and Address Organization Details Last Updated DateTime 01/24/2025 170.18 cm 19.4 kg/m2 01564.45 g 82 /min 107/71 mm[Hg] BERTIN PAIGE, [place] [address], [address] , [place] - [facility] 01/24/2025 10:28:45 Date Recorded Body height Body mass index (BMI) Body weight Provider Name and Address Organization Details Last Updated DateTime 05/27/2025 170.18 cm 19.6 kg/m2 31614.05 g Anuja Fam [facility] 05/27/2025 09:43:37 Date Recorded Body height Body mass index (BMI) Body weight Provider Name and Address Organization Details Last Updated DateTime 08/06/2024 167.64 cm 19.4 kg/m2 86802.08 g Rizwan Castillo [place] - [facility] 08/06/2024 14:18:43 Date Recorded Body height Body mass index (BMI) Body weight Provider Name and Address Organization Details Last Updated DateTime 08/27/2024 167.64 cm 19.4 kg/m2 53114.08 g Kike Casanova [facility] 08/27/2024 09:35:59 Social History None recorded. Functional Status Question Answer Note LastModified by Organizat ion Details LastModified Time Do you use any illicit or recreational drugs? No [email or web address] Information not available 03/18/2024 Do you or have you ever used any other forms of tobacco or nicotine? No [email or web address] Information not available 03/18/2024 What is your level of alcohol consumption? None [email or web address] Information not available 03/18/2024 Mental Status None [...] Note 512 LAVONNE RODRIGUEZ MD [facility] [address] [address] 03/18/2024 11:13:52 03/18/2024 12:02:33 Tinnitus of left ear 0681959268 106 H93.12 Hearing within normal limits AU.Type A tympanogra ms AU. Migraine 70653124 G43.90 9 Pharyngeal dysphagia 128 3542739 9105 R13.13 She notes a sensation of randomly having a cough with saliva or fluids. Transnasal fiberoptic laryngosco py shows normal vocal fold mobility and no masses Abnormal a uditory perception 14397658 H93.292 Patient presents with sensation of fullness, [...] about fluid in the ear Neck pain 26691527 M54.2 6669 LION HEREDIA MD [facility] [address] [address] 05/07/2024 13:53:44 05/07/2024 14:43:55 Pain of left temporomandibular joint 1986975953 1019857 M26.622 Abnormal a uditory perception 98843160 H93.292 Neck pain 13769730 M54.2 18038 NEMESIO MENDEZ PA-C [facility] [address] [address] 08/06/2024 13:30:04 08/06/2024 17:05:24 Abnormal auditory perception 11722511 H93.299 Audiologic al evaluation results: Right ear: Normal hearing with excellent word recognitio n. Left ear: Normal hearing with excellent word recognitio n. Tympanomet ry: Right Ear:Type A Left Ear:Type A 98636 WENDI SCHREIBER PA-C [facility] [address] [address] 08/27/2024 09:33:34 08/27/2024 10:32:43 Abnormal auditory perception 91458931 H93.299 Tympanomet ry: Right Ear:Type A Left Ear:Type A Posterior rhinorrhea 758 15869 R09.82 Allergic rhinitis 623007 04 J30.9 49321 WALE SANTIZO PA-C [facility] [address] [address] 12/30/2024 10:02:27 12/30/2024 10:38:00 Allergic rhinitis 53868535 J30.89 Chronic pharyngitis 1400 04 J31.2 Pain of le ft temporomandibular joint 1905298164 6476687 M26.622 Tinnitus of left ear 886 6540913 106 H93.12 57014 BERTIN PAIGE RN Allergy [address] [place] [address] [address] 01/24/2025 10:02:49 01/24/2025 10:54:21 Perennial allergic rhinitis 055386363 J30.89 18708 WALE SANTIZO PA-C [facility] [address] [address] 05/27/2025 09:15:22 05/27/2025 10:20:40 Abnormal auditory perception 79548291 H93.299 Audiologic al evaluation results: Right ear:Normal hearing with excellent word recognitio n.Left ear:Normal hearing with excellent word recognitio n. Tympanomet ry:Right Ear:Type ALeft Ear:Type A Pharyngeal dysphagia 309 1976689 9105 R13.13 Chronic neck pain 348280 7022 107 M54.2 G89.29 0730860 Complex re gional pain syndrome type I of left upper limb 3792195034 52892 G90.512 [id number] Health Concerns Section Related Observation LastModified by Organization Detai ls LastModified Time None Recorded Concern Status LastModified by Organization Details LastModified Time None Recorded Advance Directives Directive None Recorded Payers Insurance Date Sequence Insurance Name Policy Number Policy [place] Covered Member ID T[place]ano Member ID Guarantor Name 09/06/2025 1 [facility] - [facility] (MEDICAID REPLACEMENT - HMO) MARIBELL Dykes [id number] Alondra Dykes Notes Date Note Type Note [...] occasional room-spinning dizziness. LION HEREDIA MD [address], [address], [facility] 08/06/2024 17:16:04 08/27/2024 text/html ROS as noted in the [facility] 33-year-old female with CRPS and left TMJ [...] taking Zyrtec daily. LAVONNE SIM MD [address] [facility],[address], [address], [facility] 08/30/2024 12:02:43 12/30/2024 text/html ROS as noted in the [facility] 34-year-old female with chronic regional pain syndrome and left TMJ presents for allergy test results. She reports her left sided ear pain and pressure are stable. Allergy testing demonstrated moderate sensitivity to dog dander, birch tree, and oak tree. Patient reports her allergy symptoms do not improve with [id number] Zyrtec and Flonase, which she has been taking daily for 7 months. MP SRIVASTAVA MD [address],[facility], [place], [address], [facility] 12/31/2024 08:08:47 05/27/2025 text/html ROS as noted in the [facility] 34-year-old female with allergic rhinitis, TMJ dysfunction, and complex regional pain syndrome presents for evaluation of the ears. She was seen at [facility] [place] [facility] for neck pain 03/2025, and was [...] choking on her saliva LAVONNE SIM MD [address] [place] [address], [place], [address], [place] [facility] 05/27/2025 12:22:05 OBGyn Episode No OBEpisode recorded.
--- OUTSIDE RECORDS SUMMARY | 2025-09-26 12:39 | XMS_ITS | Clinical Summary ---
Author Organization [facility] Address [address] [place] [address] Care Team Providers Care Captain Cannery Tender Name Role Phone Ho Araya Primary Care Provider [phone] Allergies Active Allergy Reactions Criticality Noted Date [...] Type Department Care Team Description 08/10/2025 Telephone [facility] Vascular Surgery [address] [place] [phone] Local Delivery Driver: Makayla Mackey MD MPH 07/22/2025 Orders Only [facility] Vascular Surgery [address] [place] [phone] Local Delivery Driver: Makayla Mackey MD MPH TOS (thoracic outlet syndrome) (Primary Dx) from Last 3 Months Social History Tobacco [...] Description 09/30/2025 1:40 PM EST Office Visit [facility] Vascular Surgery [address] [place] [address] [phone] Local Delivery Driver: Makayla Mackey MD MPH [address] [place] [address] Health Maintenance Due Date Last [...] Drivers of Health Carmita ual Screening 11/03/2024 Influenza Vaccine (#1) 2025 , 08/28/2020, 08/02/2019, Additional history exists COVID-19 Vaccine (1 - 2024-2 6 season) 2025 DTaP,Tdap,and Td Vaccines (4 - Td or Tdap) 08/23/2029 08/23/2019, 08/11/2014, 03/23/2004 Insurance [facility] MEDICARE Care Teams Captain Cannery Tender Relationship Specialty Start Date End Date Ho Araya [address] [place] [phone] PCP - General Internal Medicine 11/15/24
--- OUTSIDE RECORDS SUMMARY | 2025-09-26 12:39 | XMS_ITS | Clinical Summary ---
Author Organization [facility] Address [address] [place] [address] Care Team Providers Care Clay Products Glazer Name Role Phone Ho Araya MD Primary Care Provider [phone] Allergies Active Allergy Reactions Criticality Noted Date [...] age to complete this topic Care Teams [employer] Glazer Relationship Specialty Start Date End Date Ho Araya MD PCP - General Internal Medicine 05/19/24
--- OUTSIDE RECORDS SUMMARY | 2025-09-26 12:39 | XMS_ITS | Clinical Summary ---
Author Organization [facility] Address [address] [place] [address] Phone Care Team Providers Care Baggage Agent Name Role Phone Ho Araya MD Primary Care Provider [phone] Allergies Active Allergy Reactions Criticality Noted Date [...] bottle twice daily for weight loss / Garnavillo Flavored 60 each 09/29/20 24 Active lidocaine [...] after the accident originally, was seen at [facility], [facility], did not see much improvement. She had a brachial plexus block that lasted about 8 hours with good relief and then slowly tapered off. She states she has difficulty sleeping on either side due to pain. She was offered ketamine infusion but it is too expensive to pay [id number]. She is trying to get a second opinion with pain management in [place]. Patient had C-spine MRI 03/06/2025 at [facility] that showed broad-based [...] 11/17/2020 Migraine 07/03/2018 Overview (08/12/2024): Seen at [facility], initial visit 09/26/2020. Nerve blocks and trigger point injections done 10/04/2020 and 01/04/2021. Gastroesophageal reflux disease without esophagi tis 11/08/2016 Overview (04/14/2025): Gastro-esophageal reflux disease without esophagitis; Note: Date Diagnosed: 11/08/2016 2:47 PM (K21.9) Acne vulgaris 08/21/2016 Asthma 01/09/2012 Encounters Date Type Department Care Team Description 08/31/2025 2:33 PM EDT Anesthesia Event [facility] Endoscopy [address] [place] [address] Roshan Fuentes MD 08/31/2025 1:32 PM EDT - 08/31/2025 11:59 PM EDT Hospital Encounter [facility] Endoscopy [address] [place] [address] Stiven Villa MD Dasilva, John E, MD Epigastric abdominal pain Discharge Disposition: Home or Self Care 08/10/2025 [facility] [address] [place] [address] Ho Araya MD 06/29/2025 3:45 PM EDT Office Visit Orthopedic [facility] [address] [facility] [address] [place] [address] Ho Garcia MD Fibromyalgia (Primary Dx); Chronic right shoulder pain; Autoimmune disorder of autonomic nervous system from Last 3 Months Immunizations Immunization Administration [...] Date Comments Asthma Migraines 07/03/2018 Seen at [facility], initial visit 09/26/2020. Nerve blocks and trigger point injections done 10/04/2020 and 01/04/2021. 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[facility], a diagnosis confirmed by a still operator helper Orthostatic hypotension tilt tab le test conducted by a mincemeat maker revealed positive results CRPS (complex regional pain [...] Info) Description 11/17/2025 9:30 AM EST Appointment [facility] Xray [address] [place] [address] 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, SILK FINISHER Health Maintenance Due Date Last Done Comments [...] 10/05/2022 Depression Screening 11/03/2024 05/12/2024 COVID-19 Vaccine (1 - 2024- season) 2025 Influenza Vaccine (#1) 2025 , [...] CLINICAL LAB 07/18/2025 EXTERNAL CLINICAL LAB 07/15/2025 HM DEPRESSION SCREENING Routine 05/12/2024 LIPID PANEL Routine 05/12/2024 HEPATITIS C SCREENING Routine 11/17/2020 from Last 3 Months or Most Recently Relevant to Health Maintenance Results * EGD Anesthesia - MAC; [facility] ENDOSCOPY (08/31/2025 2:41 PM EDT) Anatomical Region Laterality Modality Other 08/31/2025 2:33 PM EDT Impressions 08/31/2025 2:44 PM EDT - Biopsies were taken with a cold forceps for histology in the gastric body. Recommendation: - Await pathology results. - Observe patient's clinical course. Narrative 08/31/2025 2:44 PM EDT [facility] GI Patient Name: Jarrett Dykes Procedure Date: [...] was minimal. Procedure Code(s): --- Professional --- 82003, Esophagogastroduodenoscopy, flexible, transoral; with biopsy, single or multiple Diagnosis Code(s): --- Professional --- R10.13, Epigastric pain CPT copyright 202 [employer]. All rights reserved. The codes documented in this report are preliminary and upon physician office specialist review may be revised to meet current compliance requirements. Stiven Villa MD 08/31/2025 2:44:03 PM This report has been signed electronically.Stiven Villa MD Number of Addenda: 0 Note Initiated On: 08/31/2025 2:33 PM Scope In: Scope Out: Endoscopy Department at [facility] - [address] [place] [phone] Procedure Note Stiven Villa MD - 08/31/2025 [facility] GI Patient Name: Jarrett Dykes Procedure Date: [...] loss wasminimal. Procedure Code(s): --- Professional --- 69484, Esophagogastroduodenoscopy, flexible, transoral; with biopsy, single or multiple Diagnosis Code(s): --- Professional --- R10.13, Epigastric pain CPT copyright 202 [employer]. All rights reserved. The codes documented in this report are preliminary and upon physician office specialist reviewmay be revised to meet current compliance requirements. Stiven Villa MD 08/31/2025 2:44:03 PM This report has been signed electronically.Stiven Vilal MD Number of Addenda: 0 Note Initiated On: 08/31/2025 2:33 PM Scope In: Scope Out: Endoscopy Department at [facility] - [address] [place] [phone] IMPRESSION: - Biopsies were taken with a cold forceps for histology in the gastric body. Recommendation: - Await pathology results. - Observe patient's clinical course. Stiven Villa MD GI~PROCEDURE ORDERABLES Final Re sult * Tissue exam (08/31/2025 2:39 PM EDT) Final Diagnosis A. Stomach, body biopsies: - Gastric oxyntic mucosa with no specific pathologic changes. - No Helicobacter pylori organisms are morphologically identified. 09/01/2025 11:10 AM EDT [facility] at 1110 EDT Gross Description A. Stomach, body biopsies: Labeled body biop stomach . Received in formalin are two soft, mendoza-red tissue fragments measuring approximately 0.5 cm in greatest diameter, which are wrapped in paper and submitted in toto in one cassette, two pieces, multiple levels. TS 09/01/2025 11:10 AM EDT [facility] Disclaimer Unless otherwise specified, all tissue is 10% NB formalin fixed and paraffin embedded. 09/01/2025 11:10 AM EDT [facility] Tissue Stomach structure / Unknown 08/31/2025 2:39 PM EDT 08/31/2025 3:51 PM EDT Stiven Villa MD LAB PATHOLOGY ORDERABLES Final R esult [facility] [address] [place] [address], [place] [phone] * POC , urine NO CHARGE screening manually resulted (08/31/2025 2:10 PM EDT) HCG, Ur POC Negative Negative POC hCG Int QC Pass? Yes Yes Urine Urine specimen obtained by clean catch procedure / Unknown 08/31/2025 2:10 PM EDT Result [facility] Lynn White MD POINT OF CARE TEST ENTER/ EDIT ORDERABLES Final Result * External clinical lab (07/18/2025) Only the most recent of3 resultswithin the time period is included. Provider Marielle Onbase LAB BLOOD ORDERABLES Fin al Result * Depression Screening (05/12/2024) [facility] Depression Screening abstracted Result [facility] Historical Provider HEALTH MAINTENANCE Final Result * Lipid panel (05/12/2024) [facility] LDL/HDL Ratio 3 0 - 4 Triglycerides 56 0 - 150 mg/dL Cholesterol 173 0 - 200 mg/dL HDL 68 >=40 mg/dL LDL Cholesterol 94 0 - 100 mg/dL Blood Venous blood specimen / Unknown Result [facility] Historical Provider LAB BLOOD ORDERABLES Katy l Result * Hepatitis C Screening (11/17/2020) [facility] Hepatitis C Screening abstracted Historical Provider HEALTH MAINTENANCE Final Result from Last 3 Months or Most Recently Relevant to Health Maintenance Additional Health Concerns Active Problems Noted Date Diagnosed Date Autogenerated Problem 08/02/2025 Infection Onset Date Last Indicated Enteroaggregative E. coli (EAEC) 05/10/2025 05/10/2025 Insurance MEDICARE MEDICAID - [place] Care Teams Baggage Agent Relationship Specialty Start Date End Date Ho Araya MD [address] [place] [phone] PCP - General Internal Medicine 07/25/15
--- OUTSIDE RECORDS SUMMARY | 2025-09-26 12:39 | XMS_ITS | Clinical Summary ---
Author Organization [facility] Address [address] [place] [phone] Phone Care Team Providers Care Assessor Name Role Phone Ho Araya MD Primary [...] 2013 INFLUENZA VACCINE (#1) 2025 COVID-19 VACCINE ( - 2024-2 6 season) 2025 HEPATITIS A VACCINES Aged [...] topic Medical Devices Not on file [facility] [address] [place] [address] ACO [facility] ACO Care Teams Assessor Relationship Specialty Start Date End Date Ho Araya MD [address] [place] [phone] PCP - General Internal Medicine 09/01/24 Additional Source Comments The information contained in this document represents components of the legal health record. It is not the complete legal health record.[facility]
--- OUTSIDE RECORDS SUMMARY | 2025-09-26 12:39 | XMS_ITS | Encounter Summary ---
Author Organization [facility] Address [address] [place] [address] Care Team Providers Care Housekeeper Name Role Phone Ho Araya MD Primary Care Provider [phone] Encounter Details Date Type Department Care Team (Late Contact Info) Description 09/24/2024 Lab Requisition [facility] - Main Lab [address] [place] [address] Sergio Gross PA [address] [facility] [place] [address] [place] [phone] Other microscopic hematuria Social History Tobacco Use [...] Description 11/17/2025 9:[address] [facility] Xray [address] [place] [phone] 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, DOLL DRESSER documented as of this encounter Procedures Procedure [...] clinical and pathological findings. 10/12/2024 9:06 AM [facility] Addendum electronically signed by Gaetano Fernando MD on 10/12/2024 at 9:06 AM Final Diagnosis Urine, Voided: Negative for high grade urothelial carcinoma. Note: UroVysion testing to follow. 10/12/2024 9:06 AM [facility] Clinical Information [id number], Urine cyto/urine FISH. 10/12/2024 9:06 AM [facility] Gross Description A. Urine, Voided, : [id number] recd 1 TP cyto 1 TP fish. 10/12/2024 9:06 AM [facility] Disclaimer Unless otherwise specified, all tissue is 10% NB formalin fixed and paraffin embedded. 10/12/2024 9:06 AM [facility] Tissue Urine specimen from urethra / Unknown 09/21/2024 09/24/2024 1:47 PM EST us Sergio SHIRLEY LAB PATHOLOGY ORDERABLES Edite d Result - Final [facility] [address] [place] [address], documented in this encounter Visit Diagnoses Diagnosis Other microscopic hematuria documented in this encounter Additional Health Concerns Infection Onset Date Last Indicated Resolved Time Gastrointestinal Rule-Out 05/10/2025 05/10/2025 1:13 PM EDT C. difficile Rule-Out 05/10/2025 05/10/20252024 12:00 PM EDT Enteroaggregative E. coli (EAEC) 05/10/2025 05/10/20 25 documented as of this encounter Care Teams Housekeeper Relationship Specialty Start Date End Date Ho Araya MD [address] [place] [address] PCP - General Internal Medicine 07/25/15 documented as of this encounter
== END 2025-09-26 10:40 | disposition home or self-care (01) ==
LOC: HO.HCS 10:18
PROVIDERS: PCP Internal Medicine; Visit Provider Nurse Practitioner Family
DX: I95.1 Orthostatic hypotension (principal); R42 Dizziness and giddiness; R00.2 Palpitations; G90.512 Complex regional pain syndrome I of left upper limb
CPT/HCPCS: 99214; G2211

== ENCOUNTER → 2025-09-26 10:17 | Outpatient (BNVA) | payer MEDICARE, MEDICAID, SELFPAY | PROVIDERS: PCP Internal Medicine; Visit Provider Nurse Practitioner Family | DX: I95.1 Orthostatic hypotension (principal); R42 Dizziness and giddiness; R00.2 Palpitations; G90.512 Complex regional pain syndrome I of left upper limb | CPT/HCPCS: 99212 ==

== ENCOUNTER 2025-09-27 13:44 | Outpatient (AMB) | payer MEDICARE, MEDICAID, SELFPAY ==
--- NOTE | 2025-09-27 13:46 | MHC.OFFVIS ---
Vital Signs 09/27/25 13:47 Height 5 ft 8 in Weight 135 lb 2 oz BMI 20.5 BP 104/76 Blood Pressure Location Rt brachial Position Sitting Pulse 76 Pulse Source Pulse Oximeter Pulse Oximetry (%) 99 Oxygen Delivery Method Room Air Intake Visit Reasons: Botox Intake Note: Botox Community Support Professional Required: No Accompanied by: Self / Same As Patient Allergies ibuprofen (From Motrin) Allergy (Severe, Verified 09/27/25 13:46) Unknown metoclopramide (From REGLAN) Allergy (Mild, Verified 09/27/25 13:46) ANXIETY Penicillins (PENICILLINS) Allergy (Unknown, Verified 09/27/25 13:46) RASH HPI Comments Details: ? 34y/o female comes for treatment of migraines with botox. ??? Most frequent reported adverse reactions following injection of botox for chronic migraine include neck pain (9%), headache(5%), eyelid ptosis(4%), migraine(4%), muscular weakness(4%), musculuskeletal stiffness(4%), bronchitis(3%), injection site pain (3%), musculoskeletal pain(3%), myalgia(3%), facial paresis(2%), HTN(2%) and muscle spasms(2%) were discussed in detail. ??? Botulinum toxin typeA 200units Lot no [id number] expiration January 2028 was diluted with 4 cc of normal saline . ??? Muscles injected- ??? Frontalis 4 sites ??? Procerus 1 site ??? Supervisor Hot Dip Tinning- 2 sites ??? Temporalis- 8 sites ??? Occipitalis- 6 sites ??? Cervical paraspinals- 4 sites ??? Trapezius- 6 sites- 5 units each left levator 45 units ??? 5 units each in 31 site ??? Total use- 200 units ??? 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 Physical Exam Vital Signs: Last Vital Signs Pulse 76 09/27/25 13:47 BP 104/76 09/27/25 13:47 Pulse Ox 99 09/27/25 13:47 Oxygen Delivery Method Room Air 09/27/25 13:47 BMI result Body Mass Index 20.5 Const General: no acute distress Orientation/consciousness: patient oriented x3 Resp Effort & Inspection: normal respiratory effort and able to speak in complete sentences Neuro General: patient oriented x3 Cognition (Neuro): normal cognition Office Procedures Botulinum toxin Injection 95065 - Migraine Procedure code (CPT) selection complete Office Meds onabotulinumtoxinA 200 unit solution for injection Performing Provider: Beatris Ramsay MD Performing Location: [facility] Administered by: Beatris Ramsay MD on 09/27/25 14:17 Dose Route Admin Location Dispensed Lot Number Expiration Date [facility] Clinical Research Nurse Coordinator 200 unit subcut 200 units [id number] ALLERGAN/BOTOX Total Dispensed Waste 200 units 0 % Assessment & Plan Assessment & Plan (1) Chronic migraine without aura: Code(s): G43.709 - Chronic migraine without aura, not intractable, without status migrainosus Category: Medical Qualifiers: Status migrainosus presence: without status migrainosus Intractability: intractable Qualified Code(s): G43.719 - Chronic migraine without aura, intractable, without status migrainosus Plan Patient tolerated the procedure well she will call with any side effects Orders: Orders AMB Botulinum toxin Injection Today G43.719 - Chronic migraine without aura, intractable, without status migrainosus Coding Level of Care Code Est Pt Level 1 (83071) Diagnoses Intractable chronic migraine without aura and without status migrainosus G43.719 Status migrainosus presence: without status migrainosus Intractability: intractable CPT Codes Botox Injection - Botox 3: 93330 - Migraine ([id number])
[2025-09-27 13:47] VITALS: BP 104/76; PULSE 76; O2SAT 99; BMI 20.5
--- OUTSIDE RECORDS SUMMARY | 2025-09-27 17:35 | XMS_ITS | Clinical Summary ---
Author Organization [facility] Address [address] [place] [address] Phone Care Team Providers Care Die Cutter Operator Name Role Phone Ho Araya MD Primary Care Provider [phone] Allergies Active Allergy Reactions Criticality Noted Date [...] bottle twice daily for weight loss / Ord Flavored 60 each 09/29/20 24 Active lidocaine [...] after the accident originally, was seen at [facility], [facility], did not see much improvement. She had a brachial plexus block that lasted about 8 hours with good relief and then slowly tapered off. She states she has difficulty sleeping on either side due to pain. She was offered ketamine infusion but it is too expensive to pay [id number]. She is trying to get a second opinion with pain management in [place]. [place] [facility] broad-based disc bulging C5- 6, [...] 11/17/2020 Migraine 07/03/2018 Overview (08/12/2024): Seen at [facility], initial visit 09/26/2020. Nerve blocks and trigger point injections done 10/04/2020 and 01/04/2021. Gastroesophageal reflux disease without esophagi tis 11/08/2016 Overview (04/14/2025): Gastro-esophageal reflux disease without esophagitis; Note: Date Diagnosed: 11/08/2016 2:47 PM (K21.9) Acne vulgaris 08/21/2016 Asthma 01/09/2012 Encounters Date Type Department Care Team Description 08/31/2025 2:33 PM EDT Anesthesia Event [facility] Endoscopy [address] [place] [address] Roshan Fuentes MD 08/31/2025 1:32 PM EDT - 08/31/2025 11:59 PM EDT Hospital Encounter [facility] Endoscopy [address] [place] [address] Stiven Villa MD Dasilva, John E, MD Epigastric abdominal pain Discharge Disposition: Home or Self Care 08/10/2025 [facility] [address] [place] [address] Ho Araya MD 06/29/2025 3:45 PM EDT Office Visit Orthopedic Surgery [facility] [address] [facility] [address] [place] [address] Ho Garcia MD Fibromyalgia (Primary [...] Date Comments Asthma Migraines 07/03/2018 Seen at [facility], initial visit 09/26/2020. Nerve blocks and trigger point injections done 10/04/2020 and 01/04/2021. 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 Narrative 08/31/2025 2:44 PM EDT [facility] GI Patient Name: Jarrett Dykes [...] was minimal. Procedure Code(s): --- Professional --- 71071, Esophagogastroduodenoscopy, flexible, transoral; with biopsy, single or multiple Diagnosis Code(s): --- Professional --- R10.13, Epigastric pain CPT copyright 202 [employer]. All rights reserved. The codes documented in this report are preliminary and upon lidar scientist review may be revised to meet current compliance requirements. Stiven Villa MD 08/31/2025 2:44:03 PM This report has been signed electronically.Stiven Villa MD Number of Addenda: 0 Note Initiated On: 08/31/2025 2:33 PM Scope In: Scope Out: Endoscopy Department at [facility] - [address] [place] [phone] Procedure Note Stiven Villa MD - 08/31/2025 [facility] GI Patient Name: Jarrett Dykes [...] loss wasminimal. Procedure Code(s): --- Professional --- 46929, Esophagogastroduodenoscopy, flexible, transoral; with biopsy, single or multiple Diagnosis Code(s): --- Professional --- R10.13, Epigastric pain CPT copyright 202 [employer]. All rights reserved. The codes documented in this report are preliminary and upon lidar scientist reviewmay be revised to meet current compliance requirements. Stiven Villa MD 08/31/2025 2:44:03 PM This report has been signed electronically.Stiven Villa MD Number of Addenda: 0 Note Initiated On: 08/31/2025 2:33 PM Scope In: Scope Out: Endoscopy Department at [facility] - [address] [place] [phone] IMPRESSION: - Biopsies were taken with a [...] are morphologically identified. 09/01/2025 11:10 AM EDT [facility] at 1110 EDT Gross Description A. Stomach, body biopsies: Labeled body biop stomach . Received in formalin are two soft, mendoza-red tissue fragments measuring approximately 0.5 cm in greatest diameter, which are wrapped in paper and submitted in toto in one cassette, two pieces, multiple levels. TS 09/01/2025 11:10 AM EDT [facility] Disclaimer Unless otherwise specified, all tissue is 10% NB formalin fixed and paraffin embedded. 09/01/2025 11:10 AM EDT [facility] Tissue Stomach structure / Unknown 08/31/2025 2:39 PM EDT 08/31/2025 3:51 PM EDT Stiven Villa MD LAB PATHOLOGY ORDERABLES Final R esult [facility] [address] [place] [address], [place] [phone] * POC , urine NO CHARGE screening manually resulted (08/31/2025 2:10 PM EDT) HCG, Ur POC Negative Negative POC hCG Int QC Pass? Yes Yes Urine Urine specimen obtained by clean catch procedure / Unknown 08/31/2025 2:10 PM EDT Result [facility] Lynn White MD POINT OF CARE TEST ENTER/ EDIT ORDERABLES Final Result * External clinical lab (07/18/2025) Only the most recent of3 resultswithin the time period is included. Provider Marielle Onbase LAB BLOOD ORDERABLES Fin al Result * Depression Screening (05/12/2024) [facility] Depression Screening abstracted Result [facility] Historical Provider HEALTH MAINTENANCE Final Result * Lipid panel (05/12/2024) [facility] LDL/HDL Ratio 3 0 - 4 Triglycerides 56 0 - 150 mg/dL Cholesterol 173 0 - 200 mg/dL HDL 68 >=40 mg/dL LDL Cholesterol 94 0 - 100 mg/dL Blood Venous blood specimen / Unknown Result [facility] Historical Provider LAB BLOOD ORDERABLES Katy l Result * Hepatitis C Screening (11/17/2020) [facility] Hepatitis C Screening abstracted Historical Provider HEALTH MAINTENANCE Final Result from Last 3 Months or Most Recently Relevant to Health Maintenance Additional Health Concerns Active Problems Noted Date Diagnosed Date Autogenerated Problem 08/02/2025 Infection Onset Date Last Indicated Enteroaggregative E. coli (EAEC) 05/10/2025 05/10/2025 Insurance MEDICARE MEDICAID - [place] Care Teams Die Cutter Operator Relationship Specialty Start Date End Date Ho Araya MD [address] [place] [address] PCP - General Internal Medicine 07/25/15
--- OUTSIDE RECORDS SUMMARY | 2025-09-27 17:36 | XMS_ITS | Clinical Summary ---
Author Organization [facility] Address [address] [place] [address] Care Team Providers Care Assessment Coordinator Name Role Phone Ho Araya Primary Care Provider [phone] Allergies Active Allergy Reactions Criticality Noted Date [...] Type Department Care Team Description 08/10/2025 Telephone [facility] Vascular Surgery [address] [place] [id number] Assistant Program Manager: Makayla Mackey MD MPH 07/22/2025 Orders Only [facility] Vascular Surgery [address] [place] [address] Assistant Program Manager: Makayla Mackey MD MPH TOS (thoracic outlet [...] Care Team (Late st Contact Info) Description 10/21/2025 8:00 AM EST Office Visit [facility] Vascular Surgery [address] [place] [address] [phone] Assistant Program Manager: Makayla Mackey MD MPH [address] [place] [address] Health Maintenance Due Date Last [...] or Tdap) 08/23/2029 08/23/2019, 08/11/2014, 03/23/2004 Insurance [facility] MEDICARE Care Teams Assessment Coordinator Relationship Specialty Start Date End Date Ho Araya [address] [place] [phone] PCP - General Internal Medicine 11/15/24
--- OUTSIDE RECORDS SUMMARY | 2025-09-27 17:36 | XMS_ITS | Data Portability ---
Author Organization [facility] [address] Address [address] [place] [address] Assessment No assessment recorded. Plan of Treatment Reminders Order Date Submit Date Provider Last Modified By Organization Details Last Modified Time Details Appointments None recorded. Lab rapid strep group A, throat 2022 023 [email or web address] [address], [address] [place], [address], 3 13:02:13 streptococc us group A, culture, throat 2022 023 [email or web address] [facility], [address] [place] [address], [place], [address], 3 13:11:10 Referral None recorded. Procedures None recorded. Surgeries None recorded. Imaging None recorded. Medication Orders prednisone 20 mg tablet 2023 024 [facility], [phone] [place], [address], 4 09:11:00 cefdinir 300 mg capsule 2023 024 [facility], [phone] [place], [address], 4 09:10:58 Ciprodex 0.3 %-0.1 % ear drops,suspe nsion 2023 024 [facility], [phone] [place], [address], 4 08:57:12 Zithromax Z-Kory 250 mg tablet 2023 024 [facility] [phone] [place], [address], 4 09:49:54 Polytrim 10,000 unit-1 mg/mL eye drops 2022 023 [facility] [phone] [place], [address], 3 10:38:33 Patient TargetsNo targets recorded. Patient Instructions Encounter Date Encounter Id Patient Instructions Last Modified By Organization Details Last Modified Time 12/31/2022 [id number] [email or web address]: care instructions Not available 12/31/2022 13:04:53 sore throat: car e instructions [email or web address] Not available 12/31/2022 13:02:13 Use the eye [...] Emergency Medical evaluation for any worsening symptoms. [email or web address] Not available 12/31/2022 13:07:42 01/07/2023 [id number] sore throat: car e instructions Not available 01/07/2023 11:57:17 04/18/2024 [id number] Your ear does no t currently look [...] sure to keep your upcoming ENT appointment. Good luck Not available 04/18/2024 09:22:15 06/19/2024 [id number] middle ear fluid : care instructions [email or web address] [...] Available [facility] ([facility]) [address] [facility], [place], [address], 01/02/2023 12:06:18 12/31/19 23 12/31/2022 rapid strep group A, throa t Unknown Analyte Normal = Negati ve Not Available [address] [place], [address], 12/31/2022 11:53:41 12/31/1912/31/2022 rapid strep group A, throa t Unknown Analyte negati ve Not Available [address] [place], [address], 12/31/2022 11:53:41 Result Notes None recorded. 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 TONYABRIT salas, PA - [facility] 3 11:56:52 Migraine 67651103 Active 2022 TONYABRIT MICHELLE null, PA - [facility] 3 11:56:56 Otitis externa of left ear 5507835760730 109 Active 2023 Deacon [place], DO [address] , [place], [address], [place] - [facility] 4 09:49:06 Acute left otitis media 699999891 Active 2023 Deacon [place] DO [address] , [place], [address], [place] - [facility] 4 11:56:45 Acute serous otitis media of bilateral ears 1678531861451 107 Active 2023 Boyd Dodge NP [address] , [place], [address], [place] PA - [facility] 4 09:08:47 Bilateral earache 825158399 Active 2023 Boyd Dodge NP [address] , [place], [address], [place] - [facility] 4 09:09:15 Problem Notes None recorded. Procedures Surgical History Date Name Laterality Status Provider Name and Address Organization Details Recorded Time Removal of ovarian cyst(s) completed TONYA MICHELLE PA - [facility] 12/31/2022 11:57:36 Breast augmentation w/implt completed TONYABRIT MINAYAITH PA - [facility] 12/31/2022 11:57:41 Imaging Results None recorded. Procedure Notes None recorded. Medical Equipment None Reported. Allergies Allergen ID Allergen Name Allergen Category Reaction Reaction Severity Criticality Documentation Date Start Date Code Code System Note Provider Name and Address Organization Details Recorded Time 117903 Product containin g penicilli n (product) medicatio n rash Not available Not available 12/31/2022 21290 5018 SNOMED TONYA salas, PA - [facility] 3 11:54:53 978229 Reglan medicatio n itching Not available Not [...] completed Not Available Not Available Not Available Polytrim 10,000 unit-1 mg/mL eye drops INSTILL 1 DROP INTO AFFECTED EYE(S) BY OPHTHALMI C ROUTE EVERY 6 HOURS 01/07 completed Not Available Not Available Not [...] nsion INSTILL 4 DROPS INTO AFFECTED EAR(S) BY OTIC ROUTE 2 TIMES PER DAY FOR 7 DAYS 06/19 completed Not [...] numeric rating [Score] - Reported Oxygen saturation Heart rate Respiratory rate Body temperature Systolic And Diastolic Provider Name and Address Organization Details Last Updated DateTime 3 168.91 cm 22.3 kg/m2 17814.9 3 g 5 99 % 104 /min 20 /min 98.2 [degF] 104/70 mm[Hg] TONYA VIVIANA MD - [facility] 3 12:00:10 Date Recorded Body height Body mass index (BMI) Body weight Pain severity - 0-10 verbal numeric rating [Score] - Reported Provider Name and Address Organization Details Last Updated DateTime 01/07/2023 168.91 cm 22.3 kg/m2 38154.93 g 7 TONYA VIVIANA PA - [facility] 01/07/2023 10:37:32 Date Recorded Body height Body weight Oxygen saturation Pain severity - 0-10 verbal numeric rating [Score] - Reported Heart rate Body temperature Systolic And Diastolic Provider Name and Address Organization Details Last Updated DateTime 4 167.64 cm 54323.4 2 g 98 % 7 86 /min 97.8 [degF] 97/64 mm[Hg] Karla Kilgore MD - [facility] 4 09:32:37 Date Recorded Body height Pain severity - 0-10 verbal numeric rating [Score] - Reported Body temperature Body weight Oxygen saturation Heart rate Systolic And Diastolic Provider Name and Address Organization Details Last Updated DateTime 4 167.64 cm 7 97.1 [degF] 47710.0 1 g 98 % 90 /min 96/65 mm[Hg] Karla Kilgore MD - [facility] 4 08:38:15 Date Recorded Body height Body weight Body mass index (BMI) Heart rate Respiratory rate Body temperature Systolic And Diastolic Provider Name and Address Organization Details Last Updated DateTime 4 167.64 cm 31684.6 g 21.1 kg/m2 68 /min 18 /min 98.5 [degF] 109/72 mm[Hg] Melissa Raygoza MD - [facility] 4 09:00:07 Social History Question Answer Notes LastModified by [...] Fluids From A Person With Monkeypox? No [email or web address] Information not available 04/03/2024 What Was The Date Of Your Most Recent Tobacco Screening? 04/18/2024 [email or web address] Information not available 04/18/2024 Are You Passively [...] ICD10 Code Diagnosis IMO Codes Diagnosis Note [id number] [address] [place] [address] 03/10/2019 15:42:30 03/10/2019 17:32:00 [id number] [address] [place] [address] 01/26/2022 10:49:30 01/26/2022 12:09:11 [id number] [address] [place] [address] 07/21/2021 11:45:18 07/21/2021 15:15:57 [id number] [address] [place] [address] 12/26/2019 08:04:10 12/26/2019 08:36:06 [id number] [address] [place] [address] 06/11/2022 18:25:04 06/11/2022 19:35:13 [id number] Alessia Mead MD [address] [facility] [address] [place] [address] 12/31/2022 11:33:22 12/31/2022 13:09:21 Acute pharyngitis 054312239 J02.9 Acute conj unctivitis of left eye 3461044409 82371 H10.32 [id number] Alessia Mead MD [address] [facility] [address] [place] [address] 01/07/2023 10:17:20 01/07/2023 12:01:17 Left without being seen 5959590299 9102 Z53.21 [id number] Deacon [place] DO [address] [facility] [address] [place] [address] 04/03/2024 09:21:52 04/03/2024 10:13:05 Otitis externa of left ear 7126423851 771595 H60.92 See pcp in 3-4 days or return to urgent care in 3-4 days if cant be seen by pcp for follow up. Go to ER if anything worsens. Otc tylenol as needed for pain. Symptomati c treatment. All of patients questions have been answered. Patient has understand ing and agreement of all of this. Acute left otitis media 107230002 H66.92 pt is rx zpak. sx tx. slight erythema to left tm [id number] [facility] [address] [facility] [address] [place] [address] 04/18/2024 08:23:00 04/18/2024 09:23:34 Otalgia of left ear 5854779411 H92.02 [id number] Boyd Dodge NP [address] [facility] [address] [place] [address] 06/19/2024 08:40:12 06/19/2024 09:15:56 Acute serous otitis media of bilateral ears 8542794243 635464 H65.03 You have been diagnosed with a [...] antibiotic resistance . Thank you for using [facility] today - and don't hesitate to contact our office if you have any concerns or questions. Bilateral earache 592636 003 H92.03 Health Concerns Section Related Observation LastModified by Organization Detai ls LastModified Time None Recorded Concern Status LastModified by Organization Details LastModified Time None Recorded Advance Directives Directive None Recorded Payers Insurance Date Sequence Insurance Name Policy Number Policy [place] Covered Member ID [place] Member ID Guarantor Name 06/19/2024 1 [facility] HEALTH NET PLAN (MEDICAID HMO) MARIBELL Dykes [id number] Alondra Dykes Notes Date Note Type Note Provider Name and Address Organization Details Recorded Time 3 text/html Sore throatReported by PatientSore ThroatFor context, patient reportssick contactbut reportsnon-smoker. For source of patient information, patient reportsinformation obtained from patientandpatient arrived at urgent care ambulatory. For location, patient reportsthroat. For severity, patient reportsmild. For quality, patient reportshurts to swallow. For onset/timing, patient reports1 days. For associated symptoms, patient reportsno cough,no sputum production,no shortness of breath,no wheezing,no sinus pain,no vomiting,no nausea, andno hoarseness.32 year old female presenting for evaluation of [...] contact lens use. No drainage from her ears.ROS as noted in the HPI Alessia Mead MD [address] [facility] [place], [address], [place] - [facility] 01/01/2023 13:02:57 3 text/html Sore throatReported by Patient Alessia Mead MD [address] [facility] [place], [address], [place] - [facility] 01/07/2023 11:57:29 4 text/html Ear Pain Brief HPIReported by Patient hx of multiple ear infections in past. follows ent for this. has now left ear pain for the past 4 days. getting worse. no trauma. no fevers. no hearing loss. other uri sx. no chance she is pregant or nursing. Deacon [place] DO [address] [facility] [place], [address], PA - [facility] 04/03/2024 11:57:32 4 text/html Ear Pain Brief HPIReported by PatientHPIFor quality, patient reportsaching painanddull painbut reportsno itchingandno discharge from the ears. For context, patient reportsrecent ear infectionbut reportsno recent uri,no recent trauma,no immunocompromise,no dental problems, andno recent airplane travel. For location, patient reportsleft. For onset/timing, patient reportsrecurrent episode(recent otitis extrena has been treating with drops.). For severity, patient reportsno feverandable to perform daily activities. For alleviating factors, patient reportsototopical antibiotics: ciprodex. [facility] [address] [place], [address], [place] - [facility] 04/18/2024 09:22:30 4 text/html Ear Pain Brief HPIReported by PatientHPIFor location, patient reportspain radiates to neckbut reportsbilateral. For quality, patient reportsaching painandsharp pain. For context, patient reportsrecent ear infection. For associated symptoms, patient reportscough,nasal congestion, andnasal discharge. For onset/timing, patient reportsintermittent painandgradual onset. For duration, patient reportsoccurs dailyandsensation/episod e variable length. For severity, patient reportsgetting worseandcurrent pain 5/10. For alleviating factors, patient reportsototopical antibiotics: ___andnasal steroid spray. For aggravating factors, patient reportssinus infections,allergies, andirrigation of ear. CongestionReported by Patientnasal congestion with post nasal drip x 3 days. denies nay fever or fever with chills. no SOB or respiratory distress. Boyd Dodge NP [address] [place], [address], [place] [employer] [facility] 06/19/2024 09:11:50 OBGyn Episode No OBEpisode recorded.
--- OUTSIDE RECORDS SUMMARY | 2025-09-27 17:36 | XMS_ITS | Encounter Summary ---
Author Organization [facility] Address [address] [place] [address] Care Team Providers Care Laborer Beam House Name Role Phone Ho Araya MD Primary Care Provider [phone] Encounter Details Date Type Department Care Team (Late Contact Info) Description 09/24/2024 Lab Requisition [facility] - Main Lab [address] [place] [address] Sergio Gross PA [address] [facility] [address] [place] [phone] Other microscopic hematuria Social History Tobacco Use [...] Info) Description 11/17/2025 9:30 AM EST Appointment [facility] Xray [address] [place] [phone] 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, BARREL MAKER documented as of this encounter Procedures Procedure [...] AM [facility] Clinical Information [id number], Urine cyto/urine FISH. 10/12/2024 9:06 AM [facility] Gross Description A. Urine, Voided, : [id number] recd 1 TP cyto 1 TP fish. [...] [facility] [address] [place] [address], documented in this encounter Visit Diagnoses Diagnosis Other microscopic hematuria documented in this encounter Additional Health Concerns Infection Onset Date Last Indicated Resolved Time Gastrointestinal Rule-Out 05/10/2025 05/10/2025 1:13 PM EDT C. difficile Rule-Out 05/10/2025 05/10/20252024 12:00 PM EDT Enteroaggregative E. coli (EAEC) 05/10/2025 05/10/20 25 documented as of this encounter Care Teams Laborer Beam House Relationship Specialty Start Date End Date Ho Araya MD [address] [place] [address] PCP - General Internal Medicine 07/25/15 documented as of this encounter
--- OUTSIDE RECORDS SUMMARY | 2025-09-27 17:36 | XMS_ITS | Data Portability ---
Author Organization [place] [facility], Allergy Address [address] [address] Care Team Providers Care Concrete Sculptor Name Role Phone ANNALISASAIDA MARLYN Primary Care [...] tissue neck w/ contrast on 03/06/2025 at [facility] was benign without mass, soft tissue [...] [place], modified barium swallow study 2024 025 [email or web address] [facility], [address] [place], [address], 5 11:38:27 Medication Orders epinephrine 0.3 mg/0.3 mL injection, auto-inject or 2024 025 [facility]/Pharmacy #[id number], [phone] [place], [address], 5 10:26:56 Patient TargetsNo targets recorded. Patient [...] ----- ----- ----- < 0.10 0 Negat philyl 0.10 - 0.31 0/I Equiv ocal/ Low 0.32 - 0.55 I Low 0.56 - 1.40 II Moder ate 1.41 - 3.90 III High 3.91 - 19.00 IV Very High 19.01 - 100.0 0 V Very High >100. 00 Very High Not Available [facility] ([facility]) [address] [place], [address], 10/29/2024 23:16:49 10/28/20 24 10/29/2024 ALLER GENS, ZONE 1 N360-WtX D pteronyssinu s 0.16 kU/L class 0/I abnormal Not Available [facility] ([facility]) [address] [place], [address], 10/29/2024 23:16:49 10/28/20 24 10/29/2024 ALLER GENS, ZONE 1 R892-IhV D farinae 0.12 kU/L class 0/I abnormal Not Available [facility] ([facility]) [address] [place], [address], 10/29/2024 23:16:49 10/28/20 24 10/29/2024 ALLER GENS, ZONE 1 H541-MlY CAT dander 0.12 kU/L class 0/I abnormal Not Available [facility] ([facility]) [address] [place], [address], 10/29/2024 23:16:49 10/28/20 24 10/29/2024 ALLER GENS, ZONE 1 J235-GzK dog dander 5.14 kU/L class IV abnormal Not Available [facility] ([facility]) [address] [place], [address], 10/29/2024 23:16:49 10/28/20 24 10/29/2024 ALLER GENS, ZONE 1 d448-LrS bermuda grass <0.10 kU/L class 0 Not Available [facility] ([facility]) [address] [facility], [place], [address], 10/29/2024 23:16:49 10/28/20 24 10/29/2024 ALLER GENS, ZONE 1 o635-XdO bluegrass, marcelo <0.10 kU/L class 0 Not Available [facility] ([facility]) [address] [place], [address], 10/29/2024 23:16:49 10/28/20 24 10/29/2024 ALLER GENS, ZONE 1 x329-BeZ bahia grass <0.10 kU/L class 0 Not Available [facility] ([facility]) [address] [place], [address], 10/29/2024 23:16:49 10/28/20 24 10/29/2024 ALLER GENS, ZONE 1 J842-TaO cockroach, senegalese 0.10 kU/L class 0/I abnormal Not Available [facility] ([facility]) [address] [place], [address], 10/29/2024 23:16:49 10/28/20 24 10/29/2024 ALLER GENS, ZONE 1 H501-DcL penicillium chrysogen <0.10 kU/L class 0 Not Available [facility] ([facility]) [address] [place], [address], 10/29/2024 23:16:49 10/28/20 24 10/29/2024 ALLER GENS, ZONE 1 V220-GrQ cladosporium herbarum <0.10 kU/L class 0 Not Available [facility] ([facility]) [address] [place], [address], 10/29/2024 23:16:49 10/28/20 24 10/29/2024 ALLER GENS, ZONE 1 P892-GhT aspergillus fumigatus <0.10 kU/L class 0 Not Available [facility] ([facility]) [address] [facility] [place], [address], 10/29/2024 23:16:49 10/28/20 24 10/29/2024 ALLER GENS, ZONE 1 F499-ZyQ mucor racemosus <0.10 kU/L class 0 Not Available [facility] ([facility] [place] [facility]) [address] [place], [address], 10/29/2024 23:16:49 10/28/20 24 10/29/2024 ALLER GENS, ZONE 1 D386-LoF alternaria alternata <0.10 kU/L class 0 Not Available [facility] ([facility] [place] [facility]) [address] [facility] [place], [address], 10/29/2024 23:16:49 10/28/20 24 10/29/2024 ALLER GENS, ZONE 1 I397-JdN stemphylium herbarum <0.10 kU/L class 0 Not Available [facility] ([facility]) [address] [place], [address], 10/29/2024 23:16:49 10/28/20 24 10/29/2024 ALLER GENS, ZONE 1 I082-EpF common silver birch 3.39 kU/L class III abnormal Not Available [facility] ([facility]) [address] [place], [address], 10/29/2024 23:16:49 10/28/20 24 10/29/2024 ALLER GENS, ZONE 1 A634-CtW oak, white 10.60 kU/L class IV abnormal Not Available [facility] ([facility]) [address] [place], [address], 10/29/2024 23:16:49 10/28/20 24 10/29/2024 ALLER GENS, ZONE 1 L022-TlJ elm, senegalese <0.10 kU/L class 0 Not Available [facility] ([facility]) [address] [place], [address], 10/29/2024 23:16:49 10/28/20 24 10/29/2024 ALLER GENS, ZONE 1 P204-KdX samira, white <0.10 kU/L class 0 Not Available [facility] ([place] [place] [facility]) [address] [facility], [place], [address], 10/29/2024 23:16:49 10/28/20 24 10/29/2024 ALLER GENS, ZONE 1 B175-SjR maple/box elder 0.23 kU/L class 0/I abnormal Not Available [facility] ([place] [facility]) [address] [facility], [place], [address], 10/29/2024 23:16:49 10/28/20 24 10/29/2024 ALLER GENS, ZONE 1 B545-FdP hazelnut tree 1.25 kU/L class II abnormal Not Available [facility] ([facility]) [address] [facility], [place], [address], 10/29/2024 23:16:49 10/28/20 24 10/29/2024 ALLER GENS, ZONE 1 Q083-McZ hickory, white 0.13 kU/L class 0/I abnormal Not Available [facility] ([facility]) [address] [facility], [place], [address], 10/29/2024 23:16:49 10/28/20 24 10/29/2024 ALLER GENS, ZONE 1 L857-RiW white mulberry <0.10 kU/L class 0 Not Available [facility] ([facility]) [address] [facility], [place], [address], 10/29/2024 23:16:49 10/28/20 24 10/29/2024 ALLER GENS, ZONE 1 D199-UxL cedar, mountain <0.10 kU/L class 0 Not Available [facility] ([facility]) [address] [facility], [place], [address], 10/29/2024 23:16:49 10/28/20 24 10/29/2024 ALLER GENS, ZONE 1 P569-ArM ragweed, short <0.10 kU/L class 0 Not Available [facility] ([facility]) [address] [facility], [place], [address], 10/29/2024 23:16:49 10/28/20 24 10/29/2024 ALLER GENS, ZONE 1 I774-FrB mugwort <0.10 kU/L class 0 Not Available [facility] ([facility]) [address] [facility], [place], [address], 10/29/2024 23:16:49 10/28/20 24 10/29/2024 ALLER GENS, ZONE 1 K854-JdD plantain, puerto rican <0.10 kU/L class 0 Not Available [facility] ([facility]) [address] [facility], [place], [address], 10/29/2024 23:16:49 10/28/20 24 10/29/2024 ALLER GENS, ZONE 1 P840-QeJ pigweed, common <0.10 kU/L class 0 Not Available [facility] ([facility]) [address] [facility], [place], [address], 10/29/2024 23:16:49 10/28/20 24 10/29/2024 ALLER GENS, ZONE 1 S006-JaL sheep sorrel <0.10 kU/L class 0 Not Available [facility] ([facility]) [address] [facility], [place], [address], 10/29/2024 23:16:49 10/28/20 24 10/29/2024 ALLER GENS, ZONE 1 Y480-DuQ nettle <0.10 kU/L class 0 Not Available [facility] ([facility]) [address] [facility], [place], [address], 10/29/2024 23:16:49 10/28/20 24 10/29/2024 FOOD ALLER GY PROFI LE I792-LlT egg white 0.21 kU/L class 0/I abnormal Not Available [facility] ([facility]) [address] [place], [address], 10/29/2024 23:16:50 10/28/20 24 10/29/2024 FOOD ALLER GY PROFI LE L456-DwR peanut <0.10 kU/L class 0 Not Available [facility] ([facility]) [address] [place], [address], 10/29/2024 23:16:50 10/28/20 24 10/29/2024 FOOD ALLER GY PROFI LE S603-CbY soybean <0.10 kU/L class 0 Not Available [facility] ([facility]) [address] [place], [address], 10/29/2024 23:16:50 10/28/20 24 10/29/2024 FOOD ALLER GY PROFI LE E240-ZaS milk 0.66 kU/L class II abnormal Not Available [facility] ([facility]) [address] [place], [address], 10/29/2024 23:16:50 10/28/20 24 10/29/2024 FOOD ALLER GY PROFI LE I301-SbG clam <0.10 kU/L class 0 Not Available [facility] ([facility]) [address] [place], [address], 10/29/2024 23:16:50 10/28/20 24 10/29/2024 FOOD ALLER GY PROFI LE S235-UiH shrimp 0.10 kU/L class 0/I abnormal Not Available [facility] ([facility]) [address] [place], [address], 10/29/2024 23:16:50 10/28/20 24 10/29/2024 FOOD ALLER GY PROFI LE A877-FsU walnut <0.10 kU/L class 0 Not Available [facility] ([facility]) [address] [facility], [place], [address], 10/29/2024 23:16:50 10/28/20 24 10/29/2024 FOOD ALLER GY PROFI LE V158-ViR codfish <0.10 kU/L class 0 Not Available [facility] ([facility]) [address] [facility], [place], [address], 10/29/2024 23:16:50 10/28/20 24 10/29/2024 FOOD ALLER GY PROFI LE D092-BkL scallop <0.10 kU/L class 0 Not Available [facility] ([facility]) [address] [place], [address], 10/29/2024 23:16:50 10/28/20 24 10/29/2024 FOOD ALLER GY PROFI LE L091-FxT wheat <0.10 kU/L class 0 Not Available [facility] ([facility]) [address] [place], [address], 10/29/2024 23:16:50 10/28/20 24 10/29/2024 FOOD ALLER GY PROFI LE K793-EbH corn <0.10 kU/L class 0 Not Available [facility] ([facility]) [address] [place], [address], 10/29/2024 23:16:50 10/28/20 24 10/29/2024 FOOD ALLER GY PROFI LE K885-AiQ sesame seed <0.10 kU/L class 0 Not Available [facility] ([facility]) [address] [place], [address], 10/29/2024 23:16:50 10/28/20 24 10/29/2024 IMMUN OGLOB ULIN E, TOTAL immunoglobul in E, total 81 IU/mL 6-495 Not Available [facility] ([facility]) [address] [place], [address], 10/29/2024 23:16:50 08/06/20 audio gram No observ ation record ed. [email or web address] Not Available 2023 15:00:15 08/27/20 audio gram No observ ation record ed. [email or web address] Not Available 08/04 11:42:10 05/27/20 audio gram No observ ation record ed. [email or web address] Not Available 2024 17:31:30 05/31/20 25 03/06/2025 CT, neck, soft tissu e, w/ contr ast No observ ation record ed. [email or web address] Not Available 05/04 10:20:45 05/31/2003/06/2025 MRI, cervi ezekiel spine , w/o contr ast No observ ation record ed. [email or web address] Not Available 05/04 10:38:12 Result Notes None recorded. Problems Name Problem SNOMED Code Status Onset Date Resolution Date Notes Provider Name and Address Organization Details Recorded Time Mass of neck 327296991 Active 2014 Localized swelling, mass and lump, neck; Note: Date Diagnosed : 5 5:39 AM (R22.1) Not Available [facility] 4 02:30:45 Neck swelling 696080544 Active 2014 Localized swelling, mass and lump, neck; Note: Date Diagnosed : 5 5:39 AM (R22.1) Not Available [facility] 4 02:30:45 Chronic pharyngit is 091125 Active 2016 Chronic sore throat; Note: Date Diagnosed : 11/08/2016 2:47 PM (J31.2) Not Available [facility] 4 02:30:50 Gastroeso phageal reflux disease without esophagit is 146392087 Active 2016 Gastro-es ophageal reflux disease without esophagit is; Note: Date Diagnosed : 11/08/2016 2:47 PM (K21.9) Not Available [facility] 4 02:30:44 Lesion of oral mucosa 77911747039 32856 Active 2016 Other lesions of oral mucosa; Note: Date Diagnosed : 11/08/2016 2:53 PM (K13.79) Not Available [facility] 4 02:31:01 Tinnitus of left ear 40894044662 06 Active 2023 LAVONNE RODRIGUEZ MD [address], [place], [address] , [place] [facility] 4 11:32:24 Migraine 07536496 Active 2023 LAVONNE RODRIGUEZ MD [address], [place], [address] , [place] [facility] 4 11:32:34 Pharyngea l dysphagia 24831382556 105 Active 2023 LAVONNE RODRIGUEZ MD [address], [place], [address] , [place] [facility] 4 11:32:47 Abnormal auditory perceptio n 46087171 Active 2023 LAVONNE RODRIGUEZ MD [address], [place], [place], [address] , [place] [facility] 4 11:33:02 Abnormal auditory perceptio n 34574592 Active 2023 LION HEREDIA MD [address], [place], [address] , [place] [facility] 4 14:26:32 Neck pain 20448061 Active 2023 LION HEREDIA MD [address], [place], [address] , [place] [facility] 4 14:26:40 Pain of left temporoma ndibular joint 47589262138 367204 Active 2023 LION HEREDIA MD [address], [place], [address] , [place] [facility] 4 14:26:28 Posterior rhinorrhe a 61316271 Active 2023 Wendi Schreiber null, [place] [facility] 4 10:48:17 Allergic rhinitis 84428634 Active 2023 Wendi Schreiber null, [place] [facility] 4 10:48:34 Perennial allergic rhinitis 912782969 Active 2023 PATIENCE HUIZAR, RMA [address] [facility],[place] [address], [place], [address] , [place] [facility] 4 08:39:44 Dysphagia 04314242 Active 2024 WALE SANTIZO PA-C [address] [facility],[place] [address], [place], [address] , [place] [facility] 5 10:08:47 Chronic neck pain 07897730656 07 Active 2024 WALE SANTIZO PA-C [address] [facility],[place] [address], [place], [address] , [place] [facility] 5 11:49:53 Complex regional pain syndrome type I of left upper limb 76537670706 9105 Active 2024 WALE SANTIZO PA-C [address] [facility] [address], [place], [address] , [place] [facility] 5 11:50:30 Problem Notes None recorded. Procedures Surgical History Date Name Laterality Status Provider Name and Address Organization Details Recorded Time 05/27/20 Air & Speech Audio with Tymps - 57622, 41214 & 87202 completed MELODIE LOBO [address] [facility],[place] [address], [place], [address], [place] [facility] 05/27/2025 09:39:31 01/25/20 25 Allergy Immunotherapy Injections completed BERTIN PAIGE RN [address] [facility],[address], [place], [address], [place] [facility] 01/24/2025 10:49:11 08/27/20 Tympanometry - 13210 completed GIRISH CRESPO, AuD [address],[place] [address], [place], [address], [place] [facility] 08/27/2024 10:00:48 08/06/20 24 Air & Speech Audio with Tymps - 82126, 78695 & 34526 completed SIMBA ALEGRE MA, CCC-A 100 [facility],[address], [address], [place] [facility] 08/06/2024 14:03:16 03/18/20 24 Fiberoptic Laryngoscopy (Comprehensive) completed LAVONNE SIM MD 100 [facility],[address], [address], [facility] - [facility] 03/18/2024 11:32:05 03/18/20 24 Air only Audio - 80747 completed MORA WEAVER, AUD 100 [facility],[address], [address], [facility] - [facility] 03/18/2024 11:52:00 03/18/20 24 SRT & Speech Recognition - 44793 completed MORA WEAVER, AUD 100 [facility],[address], [address], [facility] - [facility] 03/18/2024 11:52:17 11/03/19 18 removal of sebaceous cyst completed Rizwan Castillo [place] [facility] 03/18/2024 11:23:09 11/03/19 17 Breast augmentation w/implt completed Rizwan Castillo [place] [facility] 03/18/2024 11:23:46 therapeutic cervical epidural injection completed LAVONNE SIM MD 100 [facility],[address], [address], [facility] - [facility] 03/18/2024 11:24:17 Imaging Results None recorded. Procedure Notes None recorded. Medical Equipment None Reported. Allergies Allergen ID Allergen Name Allergen Category Reaction Reaction Severity Criticality Documentation Date Start Date Code Code System Note Provider Name and Address Organization Details Recorded Time 74442 penicilli n V potassium medicatio n rash Not available Not available 03/16/2024 5 RxNorm React ion: unkno wn, unspe cifie d;; Not Available [facility] 4 00:54:41 Medications Name Sig Start Date [...] 1 tablet 2016 active Medicati on ID: [id number] P pam [place] By Name: Colleen jensen [...] Not Available Not Available No t Available [facility] Maryvalete ODT 75 mg disintegr ating tablet DISSOLVE 1 TABLET ORALLY ONCE NEEDED FOR MIGRAINE HEADACHE FOR 30 DAYS, MAX DAILY DOSE: 1 TAB active Not Available Not Available No t Available Vitals Date Recorded Body height Body mass index (BMI) Body weight Provider Name and Address Organization Details Last Updated DateTime 12/30/2024 167.64 cm 20.3 kg/m2 31376.64 g Renetta Moulton [place] [facility] 12/30/2024 10:12:43 Date Recorded Body height Body mass index (BMI) Body weight Heart rate Systolic And Diastolic Provider Name and Address Organization Details Last Updated DateTime 01/24/2025 170.18 cm 19.4 kg/m2 92172.45 g 82 /min 107/71 mm[Hg] BERTIN PAIGE, [place] [address], [address] , [place] [facility] 01/24/2025 10:28:45 Date Recorded Body height Body mass index (BMI) Body weight Provider Name and Address Organization Details Last Updated DateTime 05/27/2025 170.18 cm 19.6 kg/m2 09262.05 g Anuja Fam [place] [facility] 05/27/2025 09:43:37 Date Recorded Body height Body mass index (BMI) Body weight Provider Name and Address Organization Details Last Updated DateTime 08/06/2024 167.64 cm 19.4 kg/m2 82576.08 g Rizwan Castillo [place] [facility] 08/06/2024 14:18:43 Date Recorded Body height Body mass index (BMI) Body weight Provider Name and Address Organization Details Last Updated DateTime 08/27/2024 167.64 cm 19.4 kg/m2 22090.08 g Kike Casanova [place] [facility] 08/27/2024 09:35:59 Social History None recorded. Functional Status Question Answer Note LastModified by Organizat ion Details LastModified Time Do you use any illicit or recreational drugs? No [email or web address] Information not available 03/18/2024 Do you or have you ever used any other forms of tobacco or nicotine? No [email or web address] Information not available 03/18/2024 What is your level of alcohol consumption? None Information not available 03/18/2024 Mental Status None [...] Note 512 LAVONNE RODRIGUEZ MD [facility] [address] [address] 03/18/2024 11:13:52 03/18/2024 12:02:33 Tinnitus of left ear 3159983356 106 H93.12 Hearing within normal limits AU.Type A tympanogra ms AU. Migraine 21558288 G43.90 9 Pharyngeal dysphagia 087 8857862 9105 R13.13 She notes a sensation of randomly having a cough with saliva or fluids. Transnasal fiberoptic laryngosco py shows normal vocal fold mobility and no masses Abnormal a uditory perception 53414877 H93.292 Patient presents with sensation of fullness, [...] about fluid in the ear Neck pain 27163851 M54.2 6669 LION HEREDIA MD [facility] [address] [address] 05/07/2024 13:53:44 05/07/2024 14:43:55 Pain of left temporomandibular joint 8400923604 8833321 M26.622 Abnormal a uditory perception 48861450 H93.292 Neck pain 00183842 M54.2 78344 NEMESIO MENDEZ PA-C [facility] [address] [address] 08/06/2024 13:30:04 08/06/2024 17:05:24 Abnormal auditory perception 85330689 H93.299 Audiologic al evaluation results: Right ear: Normal hearing with excellent word recognitio n. Left ear: Normal hearing with excellent word recognitio n. Tympanomet ry: Right Ear:Type A Left Ear:Type A 59309 WENDI SCHREIBER PA-C [facility] [address] [address] 08/27/2024 09:33:34 08/27/2024 10:32:43 Abnormal auditory perception 03044246 H93.299 Tympanomet ry: Right Ear:Type A Left Ear:Type A Posterior rhinorrhea 758 80067 R09.82 Allergic rhinitis 612329 04 J30.9 06517 WALE SANTIZO PA-C [facility] [address] [address] 12/30/2024 10:02:27 12/30/2024 10:38:00 Allergic rhinitis 02487835 J30.89 Chronic pharyngitis 1400 04 J31.2 Pain of le ft temporomandibular joint 4440232150 1945871 M26.622 Tinnitus of left ear 655 7290085 106 H93.12 [id number] BERTIN PAIGE RN Allergy [address] [place] [address] [address] 01/24/2025 10:02:49 01/24/2025 10:54:21 Perennial allergic rhinitis 503625829 J30.89 24568 WALE SANTIZO PA-C [facility] [address] [address] 05/27/2025 09:15:22 05/27/2025 10:20:40 Abnormal auditory perception 96354079 H93.299 Audiologic al evaluation results: Right ear:Normal hearing with excellent word recognitio n.Left ear:Normal hearing with excellent word recognitio n. Tympanomet ry:Right Ear:Type ALeft Ear:Type A Pharyngeal dysphagia 099 7039928 9105 R13.13 Chronic neck pain 246358 7166 107 M54.2 G89.29 5868413 Complex re gional pain syndrome type I of left upper limb 1995685256 34292 G90.512 [id number] Health Concerns Section Related Observation LastModified by Organization Detai ls LastModified Time None Recorded Concern Status LastModified by Organization Details LastModified Time None Recorded Advance Directives Directive None Recorded Payers Insurance Date Sequence Insurance Name Policy Number Policy [place] Covered Member ID T[place]ano Member ID Guarantor Name 09/06/2025 1 [facility] - [facility] (MEDICAID REPLACEMENT - HMO) MARIBELL Dykes [id number] Alondra Dykes Notes Date Note Type Note [...] occasional room-spinning dizziness. LION HEREDIA MD [address] [facility], [place], [address], [facility] 08/06/2024 17:16:04 08/27/2024 text/html ROS as noted in the [facility] 33-year-old female with CRPS and left TMJ [...] taking Zyrtec daily. LAVONNE SIM MD [address] [facility],[address], [address], [facility] 08/30/2024 12:02:43 12/30/2024 text/html ROS as noted in the [facility] 34-year-old female with chronic regional pain syndrome and left TMJ presents for allergy test results. She reports her left sided ear pain and pressure are stable. Allergy testing demonstrated moderate sensitivity to dog dander, birch tree, and oak tree. Patient reports her allergy symptoms do not improve with akyz-bxz-myyfeoe Zyrtec and Flonase, which she has been taking daily for 7 months. MP SRIVASTAVA MD [address],[facility], [place], [address], [facility] 12/31/2024 08:08:47 05/27/2025 text/html ROS as noted in the [facility] 34-year-old female with allergic rhinitis, TMJ dysfunction, and complex regional pain syndrome presents for evaluation of the ears. She was seen at [facility] ED for neck pain 03/2025, and [...] choking on her saliva LAVONNE SIM MD [address] [place] [address], [place], [address], [place] [facility] 05/27/2025 12:22:05 OBGyn Episode No OBEpisode recorded.
--- OUTSIDE RECORDS SUMMARY | 2025-09-27 17:36 | XMS_ITS | Clinical Summary ---
Author Organization [facility] Address [address] [place] [address] Care Team Providers Care Crabbing Machine Operator Name Role Phone Ho Araya MD Primary Care Provider [phone] Allergies Active Allergy Reactions Criticality Noted Date [...] age to complete this topic Care Teams Crabbing Machine Operator Relationship Specialty Start Date End Date Ho Araya MD PCP - General Internal Medicine 05/19/24
--- OUTSIDE RECORDS SUMMARY | 2025-09-27 17:36 | XMS_ITS | Clinical Summary ---
Author Organization [facility] Address [address] [place] [phone] Phone Care Team Providers Care Bicycle Courier Name Role Phone Ho Araya MD [...] topic Medical Devices Not on file [facility] [address] [place] [address] ALLANCE ACO [facility] ALLANCE ACO [facility] ACO Care Teams Bicycle Courier Relationship Specialty Start Date End Date Ho Araya MD [address] [place] [id number] PCP - General Internal Medicine 09/01/24 Additional Source Comments The information contained in this document represents components of the legal health record. It is not the complete legal health record.[facility]
== END 2025-09-27 14:10 | disposition home or self-care (01) ==
LOC: HO.HSMS 13:45
PROVIDERS: PCP Internal Medicine; Visit Provider Psychiatry & Neurology Neurology
DX: G43.719 Chronic migraine without aura, intractable, without status migrainosus (principal)
CPT/HCPCS: 64615

== ENCOUNTER → 2025-09-27 13:44 | Outpatient (BNVA) | payer MEDICARE, MEDICAID, SELFPAY | PROVIDERS: PCP Internal Medicine; Visit Provider Psychiatry & Neurology Neurology | DX: G43.719 Chronic migraine without aura, intractable, without status migrainosus (principal) | CPT/HCPCS: 64615; 99211; J0585 ==

== ENCOUNTER 2025-10-18 11:31 | Outpatient (AMB) | payer MEDICARE, MEDICAID, SELFPAY ==
[2025-10-18 11:33] VITALS: BP 100/80; PULSE 82; O2SAT 98; BMI 20.8
--- NOTE | 2025-10-18 11:33 | A.OFFVIS_ITS ---
Vital Signs 10/18/25 11:33 Height 5 ft 8 in Weight 137 lb BMI 20.8 BP 100/80 Blood Pressure Location Rt brachial Position Sitting Pulse 82 Pulse Source Pulse Oximeter Pulse Oximetry (%) 98 Oxygen Delivery Method Room Air Intake Visit Reasons: Migraines/crps Lining Layer Required: No Accompanied by: Self / Same As Patient Allergies ibuprofen (From Motrin) Allergy (Severe, Verified 10/18/25 11:39) Unknown metoclopramide (From REGLAN) Allergy (Mild, Verified 10/18/25 11:39) ANXIETY Penicillins (PENICILLINS) Allergy (Unknown, Verified 10/18/25 11:39) RASH Medication List - Last Reconciled 10/18/25 by TYREL Haynes albuterol sulfate mg inhalation baclofen 10 mg PO TID PRN cetirizine 10 mg PO DAILY cholecalciferol (vitamin D3) 1,250 mcg PO QWEEK 12 weeks coenzyme Q10 400 mg PO DAILY 90 days cromolyn mg PO cyanocobalamin (vitamin B-12) 500 mcg PO DAILY 30 days cyclosporine 0.05% (Restasis) 1 drp ophthalmic (eye) BID diclofenac sodium 1% Apply to affected area every 4-6 hours as needed epinephrine IM fluticasone propionate 50 mcg/actuation 1 spray intranasal BID leg brace (Knee Support Brace) As directed Knee brace Dx: infrapetallar bursitis, hypermobility lidocaine 5% 1 patch topical DAILY midodrine 2.5 mg PO TID naratriptan take 1 tab at onset of headache; if no relief may repeat 1 tab after at least 4 hrs; max = 2 tabs/24 hrs PO 30 days onabotulinumtoxinA (Botox) 200 units IM ONCE 12 weeks ondansetron HCl 8 mg PO DAILY pantoprazole mg PO DAILY polyethylene glycol 3350 (Gavilax) grams PO pregabalin 200 mg PO TID 30 days riboflavin (vitamin B2) 400 mg PO DAILY 30 days rimegepant (Nurtec ODT) 75 mg PO ONCE PRN 30 days MDD 1 tab sertraline 50 mg PO DAILY HPI Comments Details: History of Present Illness The patient is a 35 year old female presenting for follow-up for management of chronic migraine and complex regional pain syndrome. Chronic Migraine: - The patient has a history of chronic migraine without aura. - She continues to have daily migraines, which often originate from knots in the left side of her neck and radiate up through her ear and the left side of her head. - The severity, which previously ranged from 7 to 10/10, is now consistently a 9/10, and she describes it as a disabling headache. - Botox injections have not been helpful and cause a sensation of having a bobble head. - Naratriptan provides inconsistent efficacy for her migraines. - A provider in [place] suggested she may consider trying Vyepti. Complex Regional Pain Syndrome (CRPS): - The patient has a history of complex regional pain syndrome (CRPS), which started in her left upper extremity and has since become generalized. - She has established care with [facility], who initiated treatment with IV lidocaine, which was not effective. - Her treatment was subsequently switched to monthly IV ketamine, which has started to provide some help for her symptoms. Orthostatic Hypotension: - The patient is followed by cardiology and underwent a tilt table test which showed orthostatic hypotension. - She has been started on midodrine 2.5 mg twice a day. - She was unable to tolerate wearing compression stockings due to her CRPS symptoms. 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 - She reports scoring a 7/9 on the Beighton hypermobility scale, with the only failed maneuver being touching the floor with her legs straight, which she attributes to adult-onset back issues. - Her daughter is also being worked up for a genetic hypermobility syndrome. - Her insurance will not cover genetic testing, but the supervisor stave finishing will consider processing her test after her daughter's results are known. - A hypermobility specialist plans to provide her with home exercises, as physical therapy often exacerbates her pain. Musculoskeletal Conditions: - The patient has known cervical spinal canal stenosis with disc protrusion; neurosurgery has considered but been hesitant to proceed with surgery due to her CRPS. - For right shoulder pain, she received a cortisone injection, was prescribed diclofenac 1% gel, and an MRI of the right shoulder was ordered. - For right knee bursitis, she was referred to physical therapy, given a prescription brace, and prescribed diclofenac 1% gel. - Regarding her fibromyalgia, her supervisor electric has deferred management to her pain management or PCP team for her baclofen 10 mg TID as needed. Other Conditions: - Other diagnoses include burning mouth and tongue symptoms and vitamin D deficiency. - She has seen an inspector outside [employer] who suggested she start on Cromolyn for possible mast cell activation syndrome. Family History: - Her daughter is currently being evaluated for a genetic hypermobility syndrome. Headache Review - The patient is a 35 year old female presenting for follow-up for management of chronic migraine and complex regional pain syndrome. - She reports having a daily migraine. - The pain often originates from knots in the left side of her neck and radiates up through the ear and left side of her head. - She states the severity, which formerly ranged from 7-10/10, is now consistently 9/10, describing it as a disabling headache. - She does not feel Botox injections are helping and reports a sensation of having a bobble head. - Naratriptan has inconsistent efficacy. - A provider in [place] suggested she may consider trying Vyepti. Social History - Functional Status: Marked disability from her chronic migraine and complex regional pain syndrome Results - Tests: A tilt table test showed orthostatic hypotension. - Tests: Scored 7/9 on the Beighton hypermobility scale. - Labs: History of vitamin D deficiency. - Imaging ordered: MRI of her right shoulder. 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 Reports burning mouth and tongue symptoms. Reports a bobble head sensation she associates with Botox injections. - Musculoskeletal: Reports generalized pain from CRPS. Reports right shoulder and right knee pain. Reports back issues. Reports hypermobility. Reports that physical therapy exacerbates pain. - General: Reports inability to tolerate compression stockings due to pain. Physical Exam Exam Exam: Vital Signs: Last Vital Signs Pulse 82 10/18/25 11:33 BP 100/80 10/18/25 11:33 Pulse Ox 98 10/18/25 11:33 Oxygen Delivery Method Room Air 10/18/25 11:33 BMI result Body Mass Index 20.8 Const General: cooperative and no acute distress Orientation/consciousness: patient oriented x3 Resp Effort & Inspection: normal respiratory effort and able to speak in complete sentences Neuro Other: Slow to stand, mild antalgic gait General: patient oriented x3 Cognition (Neuro): normal cognition Psych Appearance: grossly normal Mental Status: mental status grossly normal Affect: normal affect Attitude: cooperative Results Reviewed Results Reviewed: Previous workup: * 07/31/2024, CT soft tissue neck w/contrast: Unremarkable CT soft tissue of the neckReviewed: * 12/27/2024 L-spine MRI w/wo contrast- mild degenerative changes and spondylosis- doubtful that this would be contributing to the extent to patient's symptoms. We will continue to monitor. * C-spine MRI at [facility] showing possible progression of cervical spondylosis and neuroforaminal stenosis- most significant at C5-6. * 03/02/2025 HST- no evidence of sleep apnea or nocturnal hypoxemia- however there was significant snoring. Assessment & Plan Assessment & Plan (1) Complex regional pain syndrome of left upper extremity: Code(s): G90.512 - Complex regional pain syndrome I of left upper limb Category: Medical Qualifiers: Complex regional pain syndrome type: type I Qualified Code(s): G90.512 - Complex regional pain syndrome I of left upper limb (2) Diffuse pain: Code(s): R52 - Pain, unspecified Category: Medical (3) Paresthesia of both lower extremities: Code(s): R20.2 - Paresthesia of skin Category: Medical (4) Orthostatic hypotension: Code(s): I95.1 - Orthostatic hypotension Category: Medical (5) Hypermobile Yoly-Danlos syndrome: Code(s): Q79.62 - Hypermobile Yoly-Danlos syndrome Category: Medical (6) Tremor: Code(s): R25.1 - Tremor, unspecified Category: Medical (7) Chronic migraine without aura: Code(s): G43.709 - Chronic migraine without aura, not intractable, without status migrainosus Category: Medical Qualifiers: Intractability: intractable Status migrainosus presence: without status migrainosus Qualified Code(s): G43.719 - Chronic migraine without aura, intractable, without status migrainosus (8) Cervical stenosis of spinal canal: Code(s): M48.02 - Spinal stenosis, cervical region Category: Medical Plan Discussion Notes I advised the patient that we will check a cervical spine X-ray with flexion and extension views to rule out cervical instability, given her known cervical spinal stenosis and the neurosurgical team's hesitation to operate due to her complex regional pain syndrome. We will also order a comprehensive lab workup to check for vitamin deficiencies and potential inflammatory neuropathy, which she requested in light of her recent orthostatic hypotension diagnosis. For her migraines, we discussed discontinuing Botox due to ineffectiveness. I advised her to add Coenzyme Q10 to her daily regimen and we will change her acute therapy from naratriptan to zolmitriptan. We will initiate a prior authorization request for Vyepti 100 mg IV every 90 days, with a plan to increase to 300 mg if the initial dose is ineffective. We concurred with her continuing monthly IV ketamine therapy with [facility], as it may help her pain and mood symptoms. She will follow up in 2 to 6 months or sooner as needed. Patient was informed and verbally consented to the use of an ambient scribe for clinic note documentation during this visit. Plan For complex regional pain syndrome type 1, left facial weakness, throat pain on chewing/swallowing, low back pain, LLE hyperreflexia, shuffling gait: * Order placed for XR C-spine with flexion and extension to assess for cervical instability * Upon review, consider referral to PT with hypermobility expertise, or neurosurgery- being mindful that her complex regional pain syndrome symptoms may limit more aggressive treatment interventions * Check follow-up labs * Follow-up with [facility] for monthly IV ketamine therapy to manage pain and mood symptoms. * Follow-up with rheumatology as scheduled- patient advised to discuss dry eye dry mouth with them. * Continue psychotherapy * Continue vitamin-D supplement * Continue vitamin B12 500 mcg p.o. daily. * Continue pregabalin 200 mg t.i.d. * Continue baclofen 10 mg p.o. t.i.d. as needed * Consider adjusting with alpha lipoic acid, or other nutraceutical tx's- patient would like us to review her recent genetic testing results 1st- which she will forward to us. * Future considerations: * Revisiting previous referral to pain-specific CBT or ACT program- patient will review and let me know For orthostatic hypotension with tachycardia: Follow-up with cardiology as scheduled Tilt-table test as scheduled Continue taking 1-2 servings of electrolyte replacement beverage +at least 3 16 out bottles water a day. Continue ensure supplement. Continue increased table salt intake. Continue to stand slowly. For overall migraine headache management: * Optimize good self-care, including but not limited to maintaining a healthy diet, adequate fluid intake, adequate sleep, and engaging in regular physical activity. * Track headaches, especially after any treatment regimen changes. * Information previously shared on non-pharmacological interventions which may help to alleviate headache attack burden. For acute migraine headache treatment: It is important to take acute medications at the first sign of headache, however avoid acute medication overuse to reduce risk for medication adaptation headache. * May continue OTC Tylenol 650 -1000 mg q 4 -6 hours, however goes to reduce use to a some 15 days per month. Discontinue Naratriptan 2.5mg tab, 1/2 - 1 tab (1.25-2.5mg) order-ineffective. Start zolmitriptan 5 mg tablet, take 1 tablet at the onset of migraine attack, may repeat in 2 hours. Max of 2 tabs per day. Continue Rimegepant ODT (Nurtec ODT) 75mg, 1 tab at onset of headache.. Max of 1 tabs (75mg) per 24 hours. * May adjunct with OTC Tylenol 650 -1000 mg q 4 -6 hours as needed. Previous acute migraine medication trials: Sumatriptan- not tolerated. Rizatriptan- not tolerated. Ubrelvy- ineffective. Patient denies previously trying: Reyvow- however, this is no longer being manufactured. Acute migraine medication contraindications: None at this time For chronic migraine headache prevention medication: Continue Riboflavin 400mg qam Start Co Q10 400 mg daily in the morning * Take with a healthy higher-fat food, such as avocado, peanut butter, whole- milk yogurt, or an egg * This is generally well tolerated, however possible side effects include upset stomach, diarrhea, heartburn, nausea, and trouble sleeping Continue Magnesium 400mg qhs Discontinue Botox 155 units IM every 90 days order, as she does not feel that this has been effective at all. Start Vyepti 100 mg IV infusion every 90 days. * Vyepti is infused over 30 minutes at the [facility] infusion clinic * Possible side effects of eptinezumab-jjmr (Vyepti) include but are not limited to: * hypersensitivity reaction including: pruritus, flushing/hot flush, angioedema * Nasopharyngitis * Hypertension * Raynaud's disease * Vyepti will require insurance prior authorization prior to your 1st infusion appointment being scheduled. * It is important that you update us with any change in your insurance between your clinic visits and/or infusion visits Previous migraine prevention medication trials: Amitriptyline 10-15mg caused palpitations. Duloxetine- made her feel awful. Gabapentin- ineffective. Topiramate- not tolerated. Venlafaxine ineffective. Emgality and Ajovy- x's 2 months each- ineffective, felt a little hard to breathe briefly after each injection. Botox, initially helpful, however effect has waned. Migraine prevention medication contraindications: Avoid beta-blockers due to asthma diagnosis. Avoid all antihypertensives due to lightheadedness. Would avoid Aimovig and Qulipta due to risk for exacerbating constipation in these specific anti CGRP therapies. Due to the severity of patient's complex regional pain syndrome, she is unable to work in any capacity at this time and thus we have advised her to continue to abstain from work. Will follow-up upon review of above and patient to follow-up in clinic in 3-4 months or sooner prn. Orders: Orders Vitamin B12 and Folate 10/18/25 G90.512 - Complex regional pain syndrome I of left upper limb, D64.9 - Anemia, unspecified, E55.9 - Vitamin D deficiency, unspecified Vitamin B6 10/18/25 D64.9 - Anemia, unspecified, G90.512 - Complex regional pain syndrome I of left upper limb, E55.9 - Vitamin D deficiency, unspecified Vitamin D 25-OH (D2 and D3) 10/18/25 E55.9 - Vitamin D deficiency, unspecified, G90.512 - Complex regional pain syndrome I of left upper limb, D64.9 - Anemia, unspecified Comprehensive Met. Panel 10/18/25 G90.512 - Complex regional pain syndrome I of left upper limb, D64.9 - Anemia, unspecified, E55.9 - Vitamin D deficiency, unspecified Complete Blood Count Auto Diff 10/18/25 G90.512 - Complex regional pain syndrome I of left upper limb, D64.9 - Anemia, unspecified, E55.9 - Vitamin D deficiency, unspecified MARIE Reflex Titer and Pattern 10/18/25 R52 - Pain, unspecified, R25.1 - Tremor, unspecified, R68.2 - Dry mouth, unspecified, H04.123 - Dry eye syndrome of bilateral lacrimal glands C Reactive Protein 10/18/25 G90.512 - Complex regional pain syndrome I of left upper limb, D64.9 - Anemia, unspecified, E55.9 - Vitamin D deficiency, unspecified XR cervical spine w flex/ext 10/18/25 M54.2 - Cervicalgia, Q79.62 - Hypermobile Yoly-Danlos syndrome Homocysteine 10/18/25 D64.9 - Anemia, unspecified, E55.9 - Vitamin D deficiency, unspecified Methylmalonic Acid 10/18/25 G90.512 - Complex regional pain syndrome I of left upper limb, D64.9 - Anemia, unspecified, E55.9 - Vitamin D deficiency, unspecified Vitamin B1 10/18/25 E51.9 - Thiamine deficiency, unspecified, G90.512 - Complex regional pain syndrome I of left upper limb, D64.9 - Anemia, unspecified, E55.9 - Vitamin D deficiency, unspecified TSH reflex Free T4 10/18/25 G90.512 - Complex regional pain syndrome I of left upper limb, D64.9 - Anemia, unspecified, E55.9 - Vitamin D deficiency, unspecified Rheumatoid Factor 10/18/25 R52 - Pain, unspecified, R20.2 - Paresthesia of skin Erythrocyte Sedimentation Rate 10/18/25 G90.512 - Complex regional pain syndrome I of left upper limb, D64.9 - Anemia, unspecified, E55.9 - Vitamin D deficiency, unspecified Complement C3 10/18/25 G90.512 - Complex regional pain syndrome I of left upper limb, D64.9 - Anemia, unspecified, E55.9 - Vitamin D deficiency, unspecified Complement C4 10/18/25 G90.512 - Complex regional pain syndrome I of left upper limb, D64.9 - Anemia, unspecified, E55.9 - Vitamin D deficiency, unspecified Other Ref Test - Misc 10/18/25 R20.2 - Paresthesia of skin, I95.1 - Orthostatic hypotension, G90.512 - Complex regional pain syndrome I of left upper limb, R52 - Pain, unspecified, R25.1 - Tremor, unspecified Medications: New coenzyme Q10 Daily in a.m.. Take with higher fat food 400 mg PO DAILY 90 caps 3RF 90 days zolmitriptan do not exceed 2 doses per 24 hrs 5 mg PO Q2H PRN 12 tabs 6RF migraine headache 30 days eptinezumab-jjmr (Vyepti) administer over 30 mins 100 mg IV [id number] 3 months G43.719 - Chronic migraine without aura, intractable, without status migrainosus Discontinued naratriptan Discontinued Reason: Doctor's Order take 1 tab at onset of headache; if no relief may repeat 1 tab after at least 4 hrs; max = 2 tabs/24 hrs PO 30 days 12 tabs 6RF Coding Level of Care Code Est Pt Level 4 (65439) Add On Problem Visit Only Diagnoses Complex regional pain syndrome type 1 of left upper extremity G90.512 Complex regional pain syndrome type: type I Diffuse pain R52 Paresthesia of both lower extremities R20.2 Orthostatic hypotension I95.1 Hypermobile Yoly-Danlos syndrome Q79.62 Tremor R25.1 Intractable chronic migraine without aura and without status migrainosus G43.719 Intractability: intractable Status migrainosus presence: without status migrainosus Cervical stenosis of spinal canal M48.02
--- OUTSIDE RECORDS SUMMARY | 2025-10-18 15:14 | XMS_ITS | Clinical Summary ---
Author Organization [facility] Prior to 04/02/25 Address [address] [place] [address] Care Team Providers Care Physician Assistant Certified Name Role Phone Ho Araya MD Primary Care Provider [phone] Allergies Active Allergy Reactions Criticality Noted Date [...] age to complete this topic Care Teams Physician Assistant Certified Relationship Specialty Start Date End Date Ho Araya MD PCP - General Internal Medicine 05/19/24
--- OUTSIDE RECORDS SUMMARY | 2025-10-18 15:14 | XMS_ITS | Encounter Summary ---
Author Organization [facility] Address [address] [place] [address] Care Team Providers Care Alumni Relations Manager Name Role Phone Ho Araya MD Primary Care Provider [phone] Encounter Details Date Type Department Care Team (Late Contact Info) Description 09/24/2024 Lab Requisition [facility] - Main Lab [address] [place] [address] Sergio Gross PA [address] [facility] [address] [place] [phone] Other microscopic hematuria Social History Tobacco Use [...] Description 11/17/2025 9:[address] 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 10/12/2024 9:06 AM [facility] Addendum electronically signed by Gaetano Fernando MD on 10/12/2024 at 0906 EST Final Diagnosis Urine, Voided: Negative for high grade urothelial carcinoma. Note: UroVysion testing to follow. 10/12/2024 9:06 AM [facility] at 1646 EST Clinical Information [id number], Urine cyto/urine FISH. 10/12/2024 9:06 AM [facility] Gross Description A. Urine, Voided, : [id number] recd 1 TP cyto 1 TP fish. 10/12/2024 9:06 AM [facility] Disclaimer Unless otherwise specified, all tissue is 10% NB formalin fixed and paraffin embedded. 10/12/2024 9:06 AM [facility] Tissue Urine specimen from urethra / Unknown 09/21/2024 09/24/2024 1:47 PM EST us Sergio [facility] PATHOLOGY ORDERABLES Edite d Result - Final [facility] [address] [place] [address], documented in this encounter Visit Diagnoses Diagnosis Other microscopic hematuria documented in this encounter Additional Health Concerns Infection Onset Date Last Indicated Resolved Time Gastrointestinal Rule-Out 05/10/2025 05/10/2025 1:13 PM EDT C. difficile Rule-Out 05/10/2025 05/10/20252024 12:00 PM EDT Enteroaggregative E. coli (EAEC) 05/10/2025 05/10/20 25 documented as of this encounter Care Teams Alumni Relations Manager Relationship Specialty Start Date End Date Ho Araya MD [address] [place] [address] PCP - General Internal Medicine 07/25/15 documented as of this encounter
--- OUTSIDE RECORDS SUMMARY | 2025-10-18 15:14 | XMS_ITS | Clinical Summary ---
Author Organization [facility] Address [address] [place] [address] Care Team Providers Care Area Attendant Name Role Phone Ho Araya Primary Care Provider [phone] Allergies Active Allergy Reactions Criticality Noted Date [...] Type Department Care Team Description 08/10/2025 Telephone [facility] Vascular Surgery [address] [place] [phone] Acid Changer: Makayla Mackey MD MPH 07/22/2025 Orders Only [facility] Vascular Surgery [address] [place] [phone] Acid Changer: Makayla Mackey MD MPH TOS (thoracic outlet [...] Description 10/21/2025 8:00 AM EST Office Visit [facility] Vascular Surgery [address] [place] [address] [phone] Acid Changer: Makayla Mackey MD MPH [address] [place] [address] Health Maintenance Due Date Last [...] or Tdap) 08/23/2029 08/23/2019, 08/11/2014, 03/23/2004 Insurance [facility] MEDICARE Care Teams Area Attendant Relationship Specialty Start Date End Date Ho Araya [address] [place] [phone] PCP - General Internal Medicine 11/15/24
--- OUTSIDE RECORDS SUMMARY | 2025-10-18 15:14 | XMS_ITS | Clinical Summary ---
Author Organization [facility] Address [address] [place] [phone] Phone Care Team Providers Care Telephone Interceptor Operator Name Role Phone Ho Araya MD [...] topic Medical Devices Not on file [facility] [employer] [address] [place] [address]House[employer] [facility] ALLANCE ACO [facility] A[facility] Care Teams Telephone Interceptor Operator Relationship Specialty Start Date End Date Ho Araya MD [address] [place] [phone] PCP - General Internal Medicine 09/01/24 Additional Source Comments The information contained in this document represents components of the legal health record. It is not the complete legal health record.[facility]
--- OUTSIDE RECORDS SUMMARY | 2025-10-18 15:14 | XMS_ITS | Clinical Summary ---
Author Organization [facility] Address [address] [place] [address] Phone Care Team Providers Care Correspondence Representative Name Role Phone Ho Araya MD Primary Care Provider [phone] Allergies Active Allergy Reactions Criticality Noted Date [...] 3350 17 GM/SCOOP Oral Powder (GLYCOLAX) Active sucralfate (CARAFATE) 100 mg/mL suspension Take 10 mL (1 g total) by mouth 4 (four) times a day (with meals and nightly). Take 1 hour before meals and at bedtime 1200 mL 11 4 Active ondansetron (ZOFRAN) 8 mg tablet Take 1 tablet (8 mg total) by mouth 3 (three) times a day. 60 tablet 6 4 Active nutritional drink (Ensure) liquidIndicatio ns:Complex regional pain syndrome type 1, affecting unspecified site,Weight loss,BMI less than 19,adult 1 bottle twice daily for weight loss / Bourg Flavored 60 each 11 4 Active lidocaine (XYLOCAINE) 5 % ointment Apply topically 2 (two) times a day. 35.44 g 5 Active Ventolin HFA 90 mcg/actuation inhaler TAKE 2 PUFFS BY MOUTH EVERY 4 HOURS NEEDED FOR COUGH OR WHEEZING. 18 each 1 5 Active dicyclomine (BENTYL) 10 mg capsule TAKE 1 CAP BY MOUTH FOUR TIMES A DAY BEFORE MEALS AND BEDTIME. USE NEEDED FOR ABDOMINAL CRAMPING 360 capsule 1 5 Active Additional Information Patient taking differently: 10 mg oral 3 times daily with meals, Reported on 2025 ALPRAZolam (XANAX) 0.25 mg tablet Active cyanocobalamin [...] for 3 days 30 tablet 5 Active cetirizine (ZyrTEC) 10 mg tablet TAKE 1 TABLET BY MOUTH EVERY DAY 90 tablet 5 Active pantoprazole (PROTONIX) 40 mg EC tablet Take 1 tablet (40 mg total) by mouth 2 (two) times a day. Take on empty stomach, wait 30 mins and then eat to activate the medication- before breakfast and supper 60 each 4 025 Active Problems Problem Noted Date Diagnosed [...] after the accident originally, was seen at [facility], [facility], did not see much improvement. She had a brachial plexus block that lasted about 8 hours with good relief and then slowly tapered off. She states she has difficulty sleeping on either side due to pain. She was offered ketamine infusion but it is too expensive to pay [id number]. She is trying to get a second opinion with pain management in [place]. Patient had C-spine MRI 03/06/2025 at [facility] that showed broad-based disc bulging C5- 6, central right disc protrusion, moderate central stenosis, no left neural foraminal narrowing. I reviewed MRI images with patient in detail on the computer. Ms. Lawotn has chronic left neck and shoulder pain, [...] 11/17/2020 Migraine 07/03/2018 Overview (08/12/2024): Seen at [facility], initial visit 09/26/2020. Nerve blocks and trigger point injections done 10/04/2020 and 01/04/2021. Gastroesophageal reflux disease without esophagi tis 11/08/2016 Overview (04/14/2025): Gastro-esophageal reflux disease without esophagitis; Note: Date Diagnosed: 11/08/2016 2:47 PM (K21.9) Acne vulgaris 08/21/2016 Asthma 01/09/2012 Encounters Date Type Department Care Team Description 10/10/20[facility] [address] [place], [place] [address] [address] Ho Araya MD 10/07/2025 Telephone [facility] - [facility] [address] Ho Araya MD 10/07/2025 Telephone Internal Medicine - [facility] [phone] Ho Araya MD 2025 11:01 AM EST - 2025 11:59 PM EST Hospital En[facility] [place] [phone] Chronic pain of right knee Discharge Disposition: Home or Self Care 2025 10:30 AM EST [facility] [place] [phone] Brandyn Tan PA Chronic pain of right knee (Primary Dx); Pain in other specified joint 2025 Results [facility] [place] [phone] Brandyn Tan PA 08/31/2025 2:33 PM EDT Anesthesia Event [facility] Endoscopy [address] [place] [phone] Roshan Fuentes MD 08/31/2025 1:32 PM EDT - 08/31/2025 11:59 PM EDT Hospital Encounter [facility] [address] [place] [address] Stiven [place] MD Dasilva, John E, MD Epigastric abdominal pain Discharge Disposition: Home or Self Care 08/10/2025 Telephone Internal Medicine - [facility] [address] [place] [address] Ho Araya MD from Last 3 Months Immunizations Immunization Administration [...] Date Comments Asthma Migraines 07/03/2018 Seen at [facility], initial visit 09/26/2020. Nerve blocks and trigger point injections done 10/04/2020 and 01/04/2021. 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[facility], a diagnosis confirmed by a boning room worker Orthostatic hypotension tilt tab le test conducted by a mud mixer revealed positive results CRPS (complex regional pain [...] Sign Reading Time Taken Comments Blood Pressure 122/66 2025 10:43 AM EST Pulse 75 2025 10:43 AM EST Temperature 36.7 C (98.1 F) 2025 10:43 AM EST Respiratory Rate 16 08/31/2025 3:02 PM EDT Oxygen Saturation 98% 2025 10:43 AM EST Inhaled Oxygen Concentration - - Weight 60.8 kg (134 lb) 08/31/2025 2:19 PM EDT Height 167.6 cm (5' 6 ) 08/31/2025 2:19 PM EDT Body Mass Index 21.63 08/31/2025 2:19 PM EDT Plan of Treatment Upcoming Encounters Date Type Department Care Team (Late st Contact Info) Description 11/17/2025 9:30 AM EST Appointment [facility] Xray [address] [place] [address] 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, 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 Health Maintenance Due Date Last Done Comments Drug Screen 1992 Non-Opioid Controlled Substance Agreement 1992 Hepatitis B Vaccines (1 of 3 - [...] Panel) 05/12/2029 05/12/2024, 05/12/2024 DTaP,Tdap,and Td Vaccines (5 - Td or Tdap) 08/23/2029 08/23/2019, 08/11/2014, 09/03/2007, Additional history exists RSV Immunization Adult Patients (1 - 1-dose [...] Procedure Name Priority Date/Time Associated Diagnosis Comments PROTHROMBIN TIME WITH INR Routine 2025 11:38 AM EST Chronic pain of right knee Pain in other specified joint ACTIVATED PARTIAL THROMBOPLASTIN TIME Routine 2025 11:38 AM EST Chronic pain of right knee Pain in other specified joint CBC WITH AUTO DIFFERENTIAL Routine 2025 11:38 AM EST Chronic pain of right knee CBC AND DIFFERENTIAL Routine 2025 11:38 AM EST Chronic pain of right knee XR KNEE 4+ VIEWS RIGHT STAT 11:12 AM EST Chronic pain of right knee EGD Routine 08/31/2025 2:41 PM EDT Epigastric abdominal pain TISSUE EXAM Routine 08/31/2025 2:39 PM EDT Epigastric abdominal pain POC PREGANCY, URINE NO CHARGE SCREENING MANUALLY RESULTED Routine 08/31/2025 2:10 PM EDT HM DEPRESSION SCREENING Routine 05/12/2024 LIPID PANEL Routine 05/12/2024 HEPATITIS C SCREENING Routine 11/17/2020 from Last 3 Months or Most Recently Relevant to Health Maintenance Results * (ABNORMAL) CBC auto differential (2025 11:38 AM EST) WBC 3.5(L) 4.8 - 10.8 K/mcL LAB HEMETOLOGY METHOD 2025 1:08 PM [facility] RBC 4.20 3.80 - 4.80 M/mcL LAB HEMETOLOGY METHOD 2025 1:08 PM [facility] Hemoglobin 13.0 11.5 - 16.0 g/dL LAB HEMETOLOGY METHOD 2025 1:08 PM [facility] Hematocrit 38.7 35.0 - 47.0 % LAB HEMETOLOGY METHOD 2025 1:08 PM [facility] MCV 91.7 79.0 - 98.0 FL LAB HEMETOLOGY METHOD 2025 1:08 PM [facility] MCH 30.8 27.0 - 32.0 pcg LAB HEMETOLOGY METHOD 2025 1:08 PM [facility] MCHC 33.6 32.0 - 37.0 g/dL LAB HEMETOLOGY METHOD 2025 1:08 PM [facility] RDW 12.3 11.0 - 15.0 % LAB HEMETOLOGY METHOD 2025 1:08 PM [facility] Platelets 225 130 - 400 K/mcL LAB HEMETOLOGY METHOD 2025 1:08 PM [facility] MPV 10.2 7.0 - 11.0 FL LAB HEMETOLOGY METHOD 2025 1:08 PM [facility] NRBC 0.0 <1.0 % LAB HEMETOLOGY METHOD 2025 1:08 PM [facility] NRBC Absolute 0.00 <0.10 K/mcL LAB HEMETOLOGY METHOD 2025 1:08 PM [facility] Neutrophils Relative 54.7 % LAB HEMETOLOGY METHOD 2025 1:08 PM [facility] Lymphocytes Relative 36.8 % LAB HEMETOLOGY METHOD 2025 1:08 PM [facility] Monocytes Relative 6.8 % LAB HEMETOLOGY METHOD 2025 1:08 PM [facility] Eosinophils Relative 0.6 % LAB HEMETOLOGY METHOD 2025 1:08 PM [facility] Basophils Relative 1.1 % LAB HEMETOLOGY METHOD 2025 1:08 PM [facility] Immature Granulocytes Relative 0.0 % LAB HEMETOLOGY METHOD 2025 1:08 PM [facility] Neutrophils Absolute 1.92 1.50 - 7.00 K/mcL LAB HEMETOLOGY METHOD 2025 1:08 PM [facility] Lymphocytes Absolute 1.29 1.00 - 5.00 K/mcL LAB HEMETOLOGY METHOD 2025 1:08 PM [facility] Monocytes Absolute 0.24 0.20 - 1.00 K/mcL LAB HEMETOLOGY METHOD 2025 1:08 PM [facility] Eosinophils Absolute 0.02 0.00 - 0.50 K/mcL LAB HEMETOLOGY METHOD 2025 1:08 PM [facility] Basophils Absolute 0.04 0.00 - 0.20 K/mcL LAB HEMETOLOGY METHOD 2025 1:08 PM [facility] Immature Granulocytes Absolute 0.00 0.00 - 0.03 K/mcL LAB HEMETOLOGY METHOD 2025 1:08 PM [facility] Blood Venous blood specimen / Unknown Venipuncture / Unknown 2025 11:38 AM EST 2025 11:38 AM EST Brandyn SHIRLEY LAB BLOOD ORDERABLES Final Result [facility] [address] [place] [address], [place] [phone] * Activated partial thromboplastin time (2025 11:38 AM EST) Pathologist [facility] aPTT 30.4 24.1 - 39.3 sec LAB COAGULATION METHOD 2025 1:51 PM EST [facility] Blood Venous blood specimen / Unknown Venipuncture / Unknown 2025 11:38 AM EST 2025 11:38 AM EST us Brandyn SHIRLEY LAB BLOOD ORDERABLES Final Result Performing Organization Address [facility] Co de Phone Number [facility] [address] [place] [address], [place] [phone] * Prothrombin time with INR (2025 11:38 AM EST) [facility] Protime 12.0 10.6 - 13.9 sec LAB COAGULATION METHOD 2025 1:51 PM EST [facility] INR 1.0 LAB COAGULATION METHOD 2025 1:51 PM EST [facility] Blood Venous blood specimen / Unknown Venipuncture / Unknown 2025 11:38 AM EST 2025 11:38 AM EST us Brandyn SHIRLEY LAB BLOOD ORDERABLES Final Result Performing Organization Address City/[facility]/ZIP Co de Phone Number [facility] [address] [place] [address], [place] [phone] * XR Knee 4+ Views Right (2025 11:12 AM EST) Anatomical Region Laterality Modality Lower Extremities, Knee Right Radiogra phic Imaging 2025 11:3 6 AM EST Impressions 2025 11:39 AM EST Normal right knee. -------- FINAL REPORT -------- Dictated By: Abi Howe Dictated Date: 2025 11:36 ET Assigned Physician: Abi Howe Reviewed and Electronically Signed By: Abi Howe Signed Date: 2025 11:39 ET Workstation ID: [id number] Transcribed By: Self Edit Transcribed Date: 2025 11:36 ET Narrative 2025 11:39 AM EST RIGHT KNEE VIEWS: 4. HISTORY: Pain, swelling and contusions x2 months. No injury. Prior: Right knee 04/08/2025. FINDINGS: No fracture or malalignment is seen. Soft tissues are normal. The right patella is positioned on the Merchant view. No joint effusion is seen. Procedure Note Abi Howe MD - 2025 RIGHT KNEE VIEWS: 4. HISTORY: Pain, swelling and contusions x2 months. No injury. Prior: Right knee 04/08/2025. FINDINGS: No fracture or malalignment is seen. Soft tissues are normal. The rightpatella is positioned on the Merchant view. No joint effusion is seen. IMPRESSION: Normal right knee. -------- FINAL REPORT -------- Dictated By: Abi Howe Dictated Date: 2025 11:36 ET Assigned Physician: Abi Howe Reviewed and Electronically Signed By: Abi Howe Signed Date: 2025 11:39 ET Workstation ID: [id number] Transcribed By: Self Edit Transcribed Date: 2025 11:36 ET us Brandyn SHIRLEY IMG XR PROCEDURES Final Re sult * EGD Anesthesia - MAC; [facility] END[facility]COPY (08/31/2025 2:41 PM EDT) Anatomical Region Laterality Modality Other 08/31/2025 2:33 PM EDT Impressions 08/31/2025 2:44 PM EDT - Biopsies were taken with a cold forceps for histology in the gastric body. Recommendation: - Await pathology results. - Observe patient's clinical course. Narrative 08/31/2025 2:44 PM EDT [facility] GI Patient Name: Alondra Lawton Procedure Date: 08/31/2025 2:33 PM Date of [...] was minimal. Procedure Code(s): --- Professional --- 57169, Esophagogastroduodenoscopy, flexible, transoral; with biopsy, single or multiple Diagnosis Code(s): --- Professional --- R10.13, Epigastric pain CPT copyright 2020 [employer] [place] [employer]. All rights reserved. The codes documented in this report are preliminary and upon mosaic worker review may be revised to meet current compliance requirements. Stiven Villa MD 08/31/2025 2:44:03 PM This report has been signed electronically.Stiven Villa MD Number of Addenda: 0 Note Initiated On: 08/31/2025 2:33 PM Scope In: Scope Out: Endoscopy Department at [facility] - [address] [place] [phone] Procedure Note Stiven Villa MD - 08/31/2025 [facility] GI Patient Name: Alondra Lawton Procedure Date: 08/31/2025 2:33 PM Date of [...] loss wasminimal. Procedure Code(s): --- Professional --- 75950, Esophagogastroduodenoscopy, flexible, transoral; with biopsy, single or multiple Diagnosis Code(s): --- Professional --- R10.13, Epigastric pain CPT copyright 2020 [employer] [place] [employer]. All rights reserved. The codes documented in this report are preliminary and upon mosaic worker reviewmay be revised to meet current compliance requirements. Stiven Villa MD 08/31/2025 2:44:03 PM This report has been signed electronically.Stiven Villa MD Number of Addenda: 0 Note Initiated On: 08/31/2025 2:33 PM Scope In: Scope Out: Endoscopy Department at [facility] - [address] [place] [phone] IMPRESSION: - Biopsies were taken with a [...] are morphologically identified. 09/01/2025 11:10 AM EDT [facility] at 1110 EDT Gross Description A. Stomach, body biopsies: Labeled body biop stomach . Received in formalin are two soft, mendoza-red tissue fragments measuring approximately 0.5 cm in greatest diameter, which are wrapped in paper and submitted in toto in one cassette, two pieces, multiple levels. TS 09/01/2025 11:10 AM EDT [facility] Disclaimer Unless otherwise specified, all tissue is 10% NB formalin fixed and paraffin embedded. 09/01/2025 11:10 AM EDT [facility] Tissue Stomach structure / Unknown 08/31/2025 2:39 PM EDT 08/31/2025 3:51 PM EDT Stiven Villa MD LAB PATHOLOGY ORDERABLES Final R esult [facility] [address] [place] [address], * POC , urine NO CHARGE screening manually resulted (08/31/2025 2:10 PM EDT) Pathologist [facility] HCG, Ur POC Negative Negative POC hCG Int QC Pass? Yes Yes Urine Urine specimen obtained by clean catch procedure / Unknown 08/31/2025 2:10 PM EDT Lynn White MD POINT OF CARE TEST ENTER/ EDIT ORDERABLES Final Result * Depression Screening (05/12/2024) Pathologist [facility] Depression Screening abstracted Kimi Dockery MD HEALTH MAINTENANCE Final Result * Lipid panel (05/12/2024) Pathologist [facility] LDL/HDL Ratio 3 0 - 4 Triglycerides [...] 05/10/2025 05/10/2025 Insurance MEDICARE [place] [facility] [place], [place] [id number] Care Teams Correspondence Representative Relationship Specialty Start Date End Date Ho Araya MD [address] [place] [phone] PCP - General Internal Medicine 07/25/15
== END 2025-10-18 12:50 | disposition home or self-care (01) ==
LOC: HO.HSMS 11:31
PROVIDERS: Visit Provider Nurse Practitioner Family
DX: G90.512 Complex regional pain syndrome I of left upper limb (principal); R52 Pain, unspecified; R20.2 Paresthesia of skin; I95.1 Orthostatic hypotension; Q79.62 Hypermobile Ehlers-Danlos syndrome; R25.1 Tremor, unspecified; G43.719 Chronic migraine without aura, intractable, without status migrainosus; M48.02 Spinal stenosis, cervical region
CPT/HCPCS: 99214; G2211

== ENCOUNTER → 2025-10-18 11:31 | Outpatient (BNVA) | payer MEDICARE, MEDICAID, SELFPAY | PROVIDERS: Visit Provider Nurse Practitioner Family | DX: Z71.2 Person consulting for explanation of examination or test findings (principal); G90.512 Complex regional pain syndrome I of left upper limb; I95.1 Orthostatic hypotension; Q79.62 Hypermobile Ehlers-Danlos syndrome; R25.1 Tremor, unspecified; G43.719 Chronic migraine without aura, intractable, without status migrainosus; M48.02 Spinal stenosis, cervical region | CPT/HCPCS: 99212 ==